=== PATIENT | female | born 1960 | race Caucasian/White ===

== ENCOUNTER → 2017-04-07 18:00 | Outpatient (CLI) | payer OTHER, SELFPAY ==
[2017-04-07 21:33] LABS: M R Staph aureus DNA By PCR Negative (Negative); Probe Check PASS; Staph aureus DNA By PCR POSITIVE (Negative)
== END ==
PROVIDERS: Visit Provider Podiatrist
DX: L97.429 Non-pressure chronic ulcer of left heel and midfoot with unspecified severity (principal); L03.90 Cellulitis, unspecified
CPT/HCPCS: 87070; 87077; 87186; 87205; 87640

== ENCOUNTER → 2017-05-09 18:24 | Outpatient (CLI) | payer OTHER, SELFPAY ==
--- NOTE | 2017-05-09 18:35 | RAD_ITS ---
STUDY: X-RAY - LEFT WRIST REASON FOR EXAM: Female, 56 years old. Left wrist pain and swelling. TECHNIQUE: 3 view(s) of the wrist were obtained. COMPARISON: None. FINDINGS: Normal visualized distal radius and ulna. Normal radiocarpal articulation. Normal distal radioulnar articulation. Normal carpal bones. Normal carpal articulations. Normal carpometacarpal articulation of the thumb. Normal second through fifth carpometacarpal articulations. Normal visualized metacarpal bones. There is mild soft tissue swelling at the wrist. There is no demonstrated osseous destructive lesion. There is no demonstrated acute fracture. RAD/Wrist min 3 Views IMPRESSION: Mild soft tissue swelling. No acute osseous abnormality of the left wrist. Electronically Signed: Evelio Butterfield MD at 17:28 EST , Service support ,
--- NOTE | 2017-05-09 18:38 | RAD_ITS ---
STUDY: X-RAY - LEFT HAND REASON FOR EXAM: Female, 56 years old. Left hand pain and swelling. TECHNIQUE: 3 view(s) of the hand. COMPARISON: None. FINDINGS: Normal radiocarpal articulation. Normal distal radioulnar joint. Normal visualized carpal bones. Normal carpal articulations Normal carpometacarpal articulation of the thumb. Normal second through fifth carpometacarpal joints. Normal metacarpi. Normal metacarpophalangeal joint of the thumb. Normal interphalangeal joint of the thumb. Normal proximal and distal phalanges of the thumb. Normal metacarpophalangeal joints of the second through fifth fingers. Normal proximal and distal interphalangeal joints of the second through fifth fingers. Normal phalanges of the second through fifth fingers. There is dorsal soft tissue swelling of the hand and wrist. No demonstrated acute fracture or osseous destructive lesion. RAD/Hand Min 3 Views IMPRESSION: Dorsal soft tissue swelling of the hand and wrist. No acute osseous abnormality. Electronically Signed: Evelio Butterfield MD at 17:40 EST , Service support ,
[2017-05-09 19:04] LABS: Absolute Neutrophil Count 6.2 X10^3/uL (2.0-7.7); Basophil# 0.03 X10^3/uL; Basophil% 0.3 % (0-1); Eosinophil# 0.44 X10^3/uL; Eosinophils% 4.6 % (0-5); Hematocrit 36.7 % (37-47); Hemoglobin 12.1 g/dl (12.0-15.0); Lymphocyte % 23.9 % (19-41); Mean Corpuscular Hgb 28.7 pg (27.0-32.0); Mean Platelet Vol. 8.8 fl (6.2-12.0); Monocyte# 0.63 X10^3/uL; Monocyte% 6.6 % (0-10); Neutrophil % 64.5 % (47-70); Platelet Count 268 K/mm3 (150-450); RBC Distribution Width CV 13.2 % (11.6-14.6); Red Blood Count 4.22 M/mm3 (4.2-5.4); White Blood Count 9.6 K/mm3 (4.4-11.0)
[2017-05-09 19:06] LABS: POSITIVE COUNT NO; POSITIVE DIFFERENTIAL NO; POSITIVE MORPHOLOGY NO
[2017-05-09 19:09] LABS: Erythrocyte Sedimentation Rate 28 mm/hr (0-30)
[2017-05-09 19:33] LABS: AST(SGOT) 12 U/L (15-37); Alanine Aminotransfer ALT/SGPT 20 U/L (13-56); Albumin, Serum 3.9 g/dL (3.2-5.0); Alkaline Phosphatase 112 U/L (45-117); Anion Gap 7 (5-15); BUN 17 mg/dL (7-18); BUN/Creat Ratio 25.6 RATIO (10-20); CRP, High Sensitivity Cardiac 4.25 mg/L; Calcium,Total 9.8 mg/dL (8.5-10.1); Chloride 105 mmol/L (98-107); Creatinine, Serum 0.66 mg/dL (0.55-1.02); EST Glomerular Filtration Rate 97 mL/min (>60); Est Glom Filt Rate - Afr Amer 117 mL/min (>60); Glucose 65 mg/dL (74-106); Potassium 4.7 mmol/L (3.5-5.1); Protein, Total 7.9 g/dL (6.4-8.2); Sodium Level 141 mmol/L (136-145); Uric Acid 3.3 mg/dL (2.6-6.0)
== END ==
PROVIDERS: Family Provider Family Medicine Geriatric Medicine; PCP Family Medicine Geriatric Medicine; Visit Provider Family Medicine Geriatric Medicine
DX: M79.642 Pain in left hand (principal); M25.532 Pain in left wrist; I10 Essential (primary) hypertension; M10.9 Gout, unspecified; R06.89 Other abnormalities of breathing
CPT/HCPCS: 36415; 73110; 73130; 80053; 84550; 85025; 85379; 85652; 86141

== ENCOUNTER → 2017-06-28 15:15 | Outpatient (CLI) | payer OTHER, SELFPAY ==
[2017-06-28 18:00] LABS: Absolute Lymphocyte Count 1.78 X10^3/ul (0.83-4.51); Absolute Neutrophil Count 5.1 X10^3/uL (2.0-7.7); Basophil# 0.03 X10^3/uL; Basophil% 0.4 % (0-1); Eosinophil# 0.28 X10^3/uL; Eosinophils% 3.7 % (0-5); Hematocrit 38.8 % (37-47); Hemoglobin 12.9 g/dl (12.0-15.0); Lymphocyte # 1.78 X10^3/ul (4.0); Lymphocyte % 23.3 % (19-41); Mean Corp Hgb Conc 33.2 g/gl (32-36); Mean Corpuscular Hgb 28.6 pg (27.0-32.0); Mean Platelet Vol. 9.3 fl (6.2-12.0); Monocyte# 0.43 X10^3/uL; Monocyte% 5.6 % (0-10); Neutrophil # 5.11 X10^3/uL (2.7-7.7); Neutrophil % 66.9 % (47-70); POSITIVE COUNT NO; POSITIVE DIFFERENTIAL NO; POSITIVE MORPHOLOGY NO; Platelet Count 259 K/mm3 (150-450); RBC Distribution Width CV 13.3 % (11.6-14.6); RBC Distribution Width SD 41.9 fl (35.1-43.9); Red Blood Count 4.51 M/mm3 (4.2-5.4); White Blood Count 7.6 K/mm3 (4.4-11.0)
[2017-06-28 18:25] LABS: ALB/GLOB Ratio 1.1 RATIO (0.9-2.4); AST(SGOT) 10 U/L (15-37); Alanine Aminotransfer ALT/SGPT 20 U/L (13-56); Albumin, Serum 3.8 g/dL (3.2-5.0); Alkaline Phosphatase 107 U/L (45-117); Anion Gap 7 (5-15); BUN 16 mg/dL (7-18); BUN/Creat Ratio 26.5 RATIO (10-20); Calcium,Total 9.1 mg/dL (8.5-10.1); Chloride 104 mmol/L (98-107); EST Glomerular Filtration Rate 108 mL/min (>60); Est Glom Filt Rate - Afr Amer 131 mL/min (>60); Globulin 3.6 g/dL (2.2-4.2); Glucose 62 mg/dL (74-106); Potassium 3.7 mmol/L (3.5-5.1); Protein, Total 7.4 g/dL (6.4-8.2); Sodium Level 140 mmol/L (136-145); Thyroid Stim Hormone (TSH) 1.38 uIU/mL (0.358-3.74)
[2017-06-29 09:51] LABS: Vitamin D,25 Hydroxy 12.7 ng/mL (29.95-100.01)
== END ==
PROVIDERS: Family Provider Family Medicine Geriatric Medicine; PCP Family Medicine Geriatric Medicine; Visit Provider Family Medicine Geriatric Medicine
DX: I10 Essential (primary) hypertension (principal); E11.9 Type 2 diabetes mellitus without complications; E55.9 Vitamin D deficiency, unspecified
CPT/HCPCS: 36415; 80053; 82306; 84443; 85025

== ENCOUNTER → 2017-10-13 14:01 | Outpatient (CLI) | payer OTHER, SELFPAY ==
[2017-10-13 14:57] LABS: Absolute Lymphocyte Count 0.61 X10^3/ul (0.83-4.51); Absolute Neutrophil Count 5.7 X10^3/uL (2.0-7.7); Eosinophils% 2.9 % (0-5); Hematocrit 36.9 % (37-47); Hemoglobin 12.2 g/dl (12.0-15.0); Lymphocyte # 0.61 X10^3/ul (4.0); Lymphocyte % 8.8 % (19-41); Mean Corp Hgb Conc 33.1 g/gl (32-36); Mean Corpuscular Hgb 27.4 pg (27.0-32.0); Mean Corpuscular Volume 82.9 fL (81-99); Mean Platelet Vol. 10.4 fl (6.2-12.0); Monocyte# 0.47 X10^3/uL; Monocyte% 6.8 % (0-10); Neutrophil # 5.66 X10^3/uL (2.7-7.7); Neutrophil % 81.4 % (47-70); Platelet Count 168 K/mm3 (150-450); RBC Distribution Width SD 39.2 fl (35.1-43.9); Red Blood Count 4.45 M/mm3 (4.2-5.4)
[2017-10-13 14:59] LABS: Erythrocyte Sedimentation Rate 26 mm/hr (0-30); POSITIVE COUNT NO; POSITIVE DIFFERENTIAL NO; POSITIVE MORPHOLOGY NO
== END ==
LOC: LAB 14:09
PROVIDERS: Family Provider Family Medicine Geriatric Medicine; PCP Family Medicine Geriatric Medicine; Visit Provider Podiatrist
DX: L98.499 Non-pressure chronic ulcer of skin of other sites with unspecified severity (principal); L03.90 Cellulitis, unspecified
CPT/HCPCS: 36415; 85025; 85652; 86140

== ENCOUNTER → 2017-10-13 18:41 | Outpatient (CLI) | payer OTHER, SELFPAY ==
[2017-10-13 20:29] LABS: M R Staph aureus DNA By PCR Negative (Negative); Probe Check PASS; Specimen Processing Control PASS; Staph aureus DNA By PCR POSITIVE (Negative)
== END ==
PROVIDERS: Family Provider Family Medicine Geriatric Medicine; PCP Family Medicine Geriatric Medicine; Visit Provider Podiatrist
DX: L03.90 Cellulitis, unspecified (principal)
CPT/HCPCS: 87070; 87075; 87077; 87186; 87205; 87640

== ENCOUNTER → 2018-04-05 10:26 | Outpatient (CLI) | payer OTHER, SELFPAY ==
[2018-04-05 13:47] LABS: Absolute Lymphocyte Count 1.41 X10^3/ul (0.83-4.51); Absolute Neutrophil Count 3.5 X10^3/uL (2.0-7.7); Basophil# 0.02 X10^3/uL; Basophil% 0.4 % (0-1); Eosinophil# 0.29 X10^3/uL; Eosinophils% 5.1 % (0-5); Hematocrit 35.1 % (37-47); Hemoglobin 11.7 g/dl (12.0-15.0); Lymphocyte # 1.41 X10^3/ul (4.0); Lymphocyte % 24.8 % (19-41); Mean Corp Hgb Conc 33.3 g/gl (32-36); Mean Corpuscular Hgb 28.4 pg (27.0-32.0); Mean Corpuscular Volume 85.2 fL (81-99); Mean Platelet Vol. 9.7 fl (6.2-12.0); Monocyte# 0.43 X10^3/uL; Monocyte% 7.6 % (0-10); Neutrophil # 3.53 X10^3/uL (2.7-7.7); Neutrophil % 61.9 % (47-70); POSITIVE COUNT NO; POSITIVE DIFFERENTIAL NO; POSITIVE MORPHOLOGY NO; Platelet Count 270 K/mm3 (150-450); RBC Distribution Width CV 12.8 % (11.6-14.6); RBC Distribution Width SD 38.8 fl (35.1-43.9); Red Blood Count 4.12 M/mm3 (4.2-5.4); White Blood Count 5.7 K/mm3 (4.4-11.0)
[2018-04-05 15:11] LABS: AST(SGOT) 9 U/L (15-37); Alanine Aminotransfer ALT/SGPT 15 U/L (13-56); Albumin, Serum 3.6 g/dL (3.2-5.0); Alkaline Phosphatase 134 U/L (45-117); Anion Gap 8 (5-15); BUN 9 mg/dL (7-18); Calcium,Total 8.6 mg/dL (8.5-10.1); Chloride 103 mmol/L (98-107); Creatinine, Serum 0.69 mg/dL (0.55-1.02); EST Glomerular Filtration Rate 92 mL/min (>60); Est Glom Filt Rate - Afr Amer 111 mL/min (>60); Globulin 3.7 g/dL (2.2-4.2); Glucose 350 mg/dL (74-106); Potassium 3.7 mmol/L (3.5-5.1); Protein, Total 7.3 g/dL (6.4-8.2); Sodium Level 138 mmol/L (136-145); Thyroid Stim Hormone (TSH) 1.66 uIU/mL (0.358-3.74); Uric Acid 2.3 mg/dL (2.6-6.0)
== END ==
LOC: POLAB3 10:27
PROVIDERS: Family Provider Family Medicine Geriatric Medicine; PCP Family Medicine Geriatric Medicine; Visit Provider Family Medicine Geriatric Medicine
DX: I10 Essential (primary) hypertension (principal); E11.9 Type 2 diabetes mellitus without complications; E55.9 Vitamin D deficiency, unspecified; M10.9 Gout, unspecified
CPT/HCPCS: 36415; 80053; 82306; 84443; 84550; 85025

== ENCOUNTER → 2018-07-04 | Outpatient (CLI) | payer OTHER, SELFPAY ==
[2018-07-04 12:35] LABS: Absolute Neutrophil Count 3.7 X10^3/uL (2.0-7.7); Basophil# 0.01 X10^3/uL; Basophil% 0.2 % (0-1); Eosinophil# 0.36 X10^3/uL; Eosinophils% 6.1 % (0-5); Hematocrit 38.6 % (37-47); Lymphocyte % 25.2 % (19-41); Mean Corp Hgb Conc 33.7 g/gl (32-36); Mean Corpuscular Hgb 27.6 pg (27.0-32.0); Mean Platelet Vol. 9.8 fl (6.2-12.0); Monocyte% 6.7 % (0-10); Neutrophil # 3.67 X10^3/uL (2.7-7.7); Neutrophil % 61.6 % (47-70); Platelet Count 212 K/mm3 (150-450); RBC Distribution Width CV 13.2 % (11.6-14.6); RBC Distribution Width SD 38.8 fl (35.1-43.9); Red Blood Count 4.71 M/mm3 (4.2-5.4)
[2018-07-04 12:38] LABS: POSITIVE COUNT NO; POSITIVE DIFFERENTIAL NO; POSITIVE MORPHOLOGY NO
[2018-07-04 13:19] LABS: AST(SGOT) 11 U/L (15-37); Alanine Aminotransfer ALT/SGPT 16 U/L (13-56); Albumin, Serum 3.7 g/dL (3.2-5.0); Alkaline Phosphatase 150 U/L (45-117); Anion Gap 8 (5-15); BUN 9 mg/dL (7-18); BUN/Creat Ratio 13.6 RATIO (10-20); Calcium,Total 9.3 mg/dL (8.5-10.1); Chloride 103 mmol/L (98-107); Creatinine, Serum 0.66 mg/dL (0.55-1.02); EST Glomerular Filtration Rate 97 mL/min (>60); Est Glom Filt Rate - Afr Amer 118 mL/min (>60); Globulin 3.7 g/dL (2.2-4.2); Glucose 269 mg/dL (74-106); Potassium 3.9 mmol/L (3.5-5.1); Protein, Total 7.4 g/dL (6.4-8.2); Sodium Level 139 mmol/L (136-145); Thyroid Stim Hormone (TSH) 2.27 uIU/mL (0.358-3.74)
[2018-07-04 17:54] LABS: Vitamin D,25 Hydroxy 11.2 ng/mL (29.95-100.01)
== END | disposition home or self-care (01) ==
LOC: POLAB3 11:50
PROVIDERS: Family Provider Family Medicine Geriatric Medicine; PCP Family Medicine Geriatric Medicine; Visit Provider Family Medicine Geriatric Medicine
DX: I10 Essential (primary) hypertension (principal); E11.65 Type 2 diabetes mellitus with hyperglycemia
CPT/HCPCS: 36415; 80053; 82306; 84443; 85025

== ENCOUNTER 2018-09-18 08:45 | Inpatient (IN) | payer OTHER, SELFPAY ==
[2018-09-18] VITALS (10 sets, daily range): BP systolic 81–154; BP diastolic 55–91; PULSE 74–94; RESP 14–18; TEMP 36.1–37.5; O2SAT 96–98; BMI 24.0; BMI 21.8
--- NOTE | 2018-09-18 08:57 | RAD_ITS ---
STUDY: X-RAY - RIGHT FOOT CLINICAL: Female, 58 years old. Soft tissue changes overlying the great toe. TECHNIQUE: 3 view(s) of the foot. COMPARISON: None. FINDINGS: There is an enthesophyte involving the posterior superior calcaneus at the site of insertion of the Achilles tendon. Plantar spur. Normal visualized subtalar, talonavicular, calcaneocuboid, tarsal and tarsometatarsal articulations. Normal metatarsi. Normal metatarsophalangeal joint of the great toe. Normal tibial and fibular sesamoid bones. Flexion deformity at the distal interphalangeal joint. Osteomyelitis should be ruled out. Normal phalanges of the great toe. Normal second through fifth metatarsophalangeal joints. Normal interphalangeal joints and phalanges of the lesser toes. Soft tissue swelling with air in the soft tissues overlying the first metatarsal as well as the great toe. This is worse along the plantar surface. RAD/Foot min 3 Views IMPRESSION: Soft tissue swelling with gas in the soft tissues overlying the first metatarsal and first toe. Possible osteomyelitis involving the distal phalanx of the great toe. Electronically Signed: Mike Simmons, at 10:26 EDT , Service support ,
--- NOTE | 2018-09-18 08:59 | ED.VIS.GEN ---
History of Present Illness Chief Complaint: Wound Informant: Patient Onset: - Context: Gradual Onset - Chronic, worse in the last few days Timing: Continuous Current Severity: Severe Maximum Severity: Severe Narrative: Patient presents with chronic right foot wound, it has becoming worse, she has noticed foul-smelling discharge from her right toe, it is now black. Apparently she had seen a engineering mechanic but could not afford it further appointments. She denies any fever chills cough or congestion, she is a diabetic, she may have neuropathy upon talking to her and she has decreased sensation, she has minimal pain in that foot. She denies any chest pain shortness of breath. Past Medical History - Allergies and Home Meds Allergies/Adverse Reactions: Allergies No Known Allergies Allergy (Verified 09/18/18 08:46) Primary Care Physician: Marquis Guerra Chi, MD [Primary Care Provider] - Past Medical History: - - Diabetes, everyday smoker, right foot wound which is chronic and worsening Surgical History: no surgical history Lives: With Family Smoking Status: Current every day smoker Review of Systems General: Denies: Chills, Fever, Sweats Cardiovascular: Denies: Chest pain, Palpitations Respiratory: Denies: Dyspnea, Cough, Dyspnea on exertion Gastrointestinal: Denies: Abdominal pain, Nausea, Vomiting, Diarrhea, Melena, Hematochezia Genitourinary: Denies: Dysuria, Hematuria, Frequency Musculoskeletal: Reports: - - As in HPI Skin: Reports: Wounds. Denies: Rash Neurological: Reports: Numbness. Denies: Headache, Weakness Hematologic: Denies: Easy bruising Physical Exam Vital Signs/Narrative: Vital Signs Temp Pulse Resp BP Pulse Ox 09/18/18 08:46 97.0 F L 94 16 140/91 H 97 General: Negative for: Acute Distress Head: Normocephalic ENT: Moist mucous membranes, No rhinorrhea Neck: Supple Cardiovascular: Regular rate, Regular rhythm, No murmurs Respiratory: No distress, - - Coarse breath sounds bilaterally Abdomen: Soft Back: Nontender Extremities: - - There is a necrotic right great toe, it is black without any signs of blood flow. Patient has no sensation. There is a proximal foot wound that extends up till the calcaneal region. No lymphangitic streaking, no signs of proximal infection. Neurological: Normal Strength, - - Decreased sensation Psychological: Normal affect Diagnostic/Tx/Re-eval - Medical Decision Making Patient is found to have osteomyelitis. I discussed with podiatry and they wanted to make sure that there is no vascular compromise CT angiogram was done with runoffs, this did not show any vascular compromise. Patient will be admitted. Antibiotics started. Admit in stable condition ED Disposition - Plan for ED Patient: Diagnosis: Osteomyelitis Referrals: Marquis Guerra Chi, MD [Primary Care Provider] -
[2018-09-18 09:54] LABS: Absolute Lymphocyte Count 0.85 X10^3/ul (0.83-4.51); Absolute Neutrophil Count 11.8 X10^3/uL (2.0-7.7); Basophil# 0.01 X10^3/uL; Basophil% 0.1 % (0-1); Eosinophil# 0.06 X10^3/uL; Eosinophils% 0.5 % (0-5); Hematocrit 33.9 % (37-47); Hemoglobin 11.2 g/dl (12.0-15.0); Lymphocyte # 0.85 X10^3/ul (4.0); Lymphocyte % 6.4 % (19-41); Mean Corpuscular Volume 81.7 fL (81-99); Mean Platelet Vol. 9.5 fl (6.2-12.0); Monocyte# 0.51 X10^3/uL; Monocyte% 3.8 % (0-10); Neutrophil # 11.83 X10^3/uL (2.7-7.7); Neutrophil % 88.9 % (47-70); Platelet Count 362 K/mm3 (150-450); RBC Distribution Width CV 12.8 % (11.6-14.6); RBC Distribution Width SD 37.3 fl (35.1-43.9); Red Blood Count 4.15 M/mm3 (4.2-5.4); White Blood Count 13.3 K/mm3 (4.4-11.0)
[2018-09-18 09:55] LABS: POSITIVE COUNT NO; POSITIVE DIFFERENTIAL NO; POSITIVE MORPHOLOGY NO
[2018-09-18 10:11] LABS: ALB/GLOB Ratio 0.5 RATIO (0.9-2.4); AST(SGOT) 7 U/L (15-37); Alanine Aminotransfer ALT/SGPT 14 U/L (13-56); Albumin, Serum 2.5 g/dL (3.2-5.0); Alkaline Phosphatase 126 U/L (45-117); Anion Gap 8 (5-15); BUN 8 mg/dL (7-18); BUN/Creat Ratio 11.6 RATIO (10-20); Calcium,Total 8.9 mg/dL (8.5-10.1); Chloride 99 mmol/L (98-107); Creatinine, Serum 0.69 mg/dL (0.55-1.02); EST Glomerular Filtration Rate 93 mL/min (>60); Est Glom Filt Rate - Afr Amer 112 mL/min (>60); Estimated Creatinine Clearance 74.87 ml/min; Globulin 5.3 g/dL (2.2-4.2); Glucose 344 mg/dL (74-106); Potassium 3.5 mmol/L (3.5-5.1); Protein, Total 7.8 g/dL (6.4-8.2); Sodium Level 137 mmol/L (136-145)
[2018-09-18 10:30] LABS: Erythrocyte Sedimentation Rate 51 mm/hr (0-30)
--- NOTE | 2018-09-18 10:49 | CT_ITS ---
STUDY: CTA OF THE ABDOMINAL AORTA AND BILATERAL LOWER EXTREMITIES REASON FOR EXAM: Female, 58 years old. Soft tissue wound involving the right foot. RADIATION DOSAGE (If Supplied By Facility): CTDIvol = ( 6.56 ) mGy, DLP = ( 1096.26 ) mGycm TECHNIQUE: Axial CT angiography multi-detector data acquisition was obtained from the dome of the liver to the ankle following intravenous administration of 100 IV Isovue 370. Axial images and MIP images were reconstructed from the axial data set. Post-processing of the angiographic images was performed, with multiplanar reformation and 3D reconstruction. Individualized dose optimization techniques were used for this CT. TECHNICAL QUALITY: Good COMPARISON: None. Descriptors of Narrowing: None (0%) Mild (< 50%) Moderate (50-70%) Severe (70-90%) Subtotal/Total Occlusion (90-100%) Non-Evaluable (technically non-diagnostic FINDINGS: Diffuse fatty infiltration of the liver. Left adrenal hyperplasia. Small retroperitoneal lymph nodes. Retroaortic left renal vein. Abdominal aorta: Atherosclerotic plaque formation. No evidence of aneurysm. Celiac and superior mesenteric arteries: Nonstenotic atherosclerotic plaque at the origin of the superior mesenteric artery. Inferior mesenteric artery: No demonstrated narrowing. Right renal artery(arteries): No demonstrated narrowing. Left renal artery(arteries): No demonstrated narrowing. Right common iliac artery: Calcified plaques. Right external iliac artery: No demonstrated narrowing. Right internal iliac artery: No demonstrated narrowing. Left common iliac artery: Calcified plaques. Left external iliac artery: No demonstrated narrowing. Left internal iliac artery: No demonstrated narrowing. RIGHT LOWER EXTREMITY Right common femoral artery: No demonstrated narrowing. Right profundus femoris: No demonstrated narrowing. Right superficial femoral: Diffuse atherosclerotic plaque formation. Moderate stenosis along its distal portion. Right popliteal artery: No demonstrated narrowing. Right tibioperoneal trunk: No demonstrated narrowing. Right anterior tibial artery: No demonstrated narrowing. Right posterior tibial artery: No demonstrated narrowing. Right peroneal artery: No demonstrated narrowing. LEFT LOWER EXTREMITY Left common femoral artery: No demonstrated narrowing. Left profundus femoris: No demonstrated narrowing. Left superficial femoral: Diffuse atherosclerotic plaque formation worse in its distal portion. Moderate stenosis. Left popliteal artery: No demonstrated narrowing. Left tibioperoneal trunk: No demonstrated narrowing. Left anterior tibial artery: No demonstrated narrowing. Left posterior tibial artery: No demonstrated narrowing. Left peroneal artery: No demonstrated narrowing. CT/CTA Abd w/Runoff W/WO Contrast IMPRESSION: Multiple findings as discussed. Electronically Signed: Mike Simmons, at 12:30 EDT , Service support ,
--- NOTE | 2018-09-18 13:25 | NURSING ---
DR FRANCK GARZA
--- NOTE | 2018-09-18 13:30 | CASEMGMT ---
RN CM Assessment Introduced role of RN CM to patient, patient Dtr Rosetta and family at bedside.? Patient is alert, oriented and able?to participate in RN CM Assessment. ?Care providers, pharmacy, and demographics verified. Presentation: Chronic rt foot wound, Becoming worse Admit Dx: Rt Toe Osteo with Necrosis Re-Admit: No Barriers/Issues: States Rx Benefit/Insurance does not cover much and plans to apply for [facility]. Works at [employer] PCP: Marquis Guerra Chi Specialists: Brie Anderson Preferred Pharmacy: [facility] [place], [place] Insurance: [employer] Rx Benefit:?Yes LNOK: Mother Asha Jiménez, Dtr Rosettarosita Corrigan LW/HPOA: No, Would like information Living Arrangements:?Lives with her Dtr Rosetta and her and 4 kids in a 2 story home. Patient Bedroom on [address], 12-14 steps to get up. 3 steps to enter the home w/WC ramp. ADL?s: Independent with ambulation and ADLs Transportation: Patient drives, Dtr Rosetta will transport on DC DME: CAP- does not use (Patient states that it was packed away and has since unpacked but not used) HHC: None SNF: None Goal: Home, does not think will have any needs. Discussed possibility of HHC for IV Abx and Wound Care- patient states that her and Dtr are able to be taught and open to HHC with no preference on HHC Agency as long as In Network, Same for Infusion Pharmacy. CM may need to Follow re: medication coverage if patient could use Coupon Cards. Denies any other questions/concerns or issues. DC PLAN: Home with possible IV Abx and Wound Care. Aaron Lees RNCM
--- NOTE | 2018-09-18 13:41 | NURSING ---
314 RT TOE OSTEO WITH NECROSIS FRANCK
--- NOTE | 2018-09-18 15:10 | HP.PCM_ITS ---
Problem List (1) Necrosis of toe Status: Acute (2) DM type 2 (diabetes mellitus, type 2) Status: Acute (3) Hypertension Status: Chronic (4) Hyperlipidemia Status: Acute (5) Osteomyelitis Status: Acute History of Present Illness Date of Admission: 09/18/18 Chief Complaint: Necrotic toe The patient is a 58 year old F who presents with several weeks of right toe necrosis. Her great toe on the right has been black and has a small foul- smelling odor to it. This been going on for several weeks and she did not want to come to the doctor. However she has been having some intermittent pain across her foot and so today when she woke up she told her daughter that she felt that she needed to come in to the hospital. She denies any fevers or chills. No shortness of breath or chest pain. In the ER she was afebrile, and not tachycardic. The ER discussed the case with podiatry who recommended getting a CTA with runoff of her lower extremity which demonstrated blood flow. She was given a dose of Zosyn and vancomycin in the ER prior to admission. Past Medical History Past Medical History (Chronic Problems): Chronic Problems Hypertension (Chronic) Allergies No Known Allergies Allergy (Verified 09/18/18 08:46) Home Medications: Ambulatory Orders Medication Instructions Recorded Aspirin [Aspirin, Baby] 81 mg PO DAILY@0800 12/27/15 Smz/Tmp Ds [Bactrim Ds] 1 tablet PO BID #20 tablet 12/28/15 Atorvastatin Calcium 40 mg PO DAILY 09/18/18 Cholecalciferol (VIT D3) [Vitamin 1,000 unit PO DAILY 09/18/18 D] Clopidogrel Bisulfate [Clopidogrel] 75 mg PO DAILY 09/18/18 Glimepiride 4 mg PO DAILY 09/18/18 Lisinopril 2.5 mg PO DAILY 09/18/18 Pioglitazone HCl 09/18/18 metFORMIN HCl [Glucophage] 1,000 mg PO BIDCM 09/18/18 Surgical History: no surgical history Lives: With Family Smoking Status: Current every day smoker Alcohol: None Drugs: None - *Family History Maternal History Items: Cancer Paternal History Items: Heart Disease Review of Systems Constitutional: Denies: Chills, Fever, Weight Change HEENT: Denies: Head Aches, Sinus Congestion, Sinus Drainage Cardiovascular: Denies: Chest Pain, Palpitations Respiratory: Denies: Cough, Shortness of breath at rest, Sputum production Gastrointestinal: Denies: Abdominal Pain, Nausea, Vomiting Genitourinary: Denies: Dysuria Musculoskeletal: Reports: Foot Pain, - - Right big toe necrosis. Denies: Joint Pain, Joint Tenderness Skin: Denies: Rash, Wounds Neurological: Denies: Numbness, Tingling, Focal weakness Psychiatric: Denies: Anxiety, Depression Hematologic/ Lymphatic: Denies: Easy Bruising, Easy Bleeding VTE Information - Inpt Only VTE Present on Admission: No Patient Problems: Active and Suspected Problems Osteomyelitis (Acute) Necrosis of toe (Acute) DM type 2 (diabetes mellitus, type 2) (Acute) Hyperlipidemia (Acute) - Physical Exam General: Alert, Oriented x3, Cooperative, No apparent distress HEENT: Atraumatic, PERRLA, EOMI, Normocephalic Oral: Moist Mucosa Neck: Supple, No JVD Lungs: Clear to auscultation, Normal air movement, No rhonchi, No wheeze, No ral es Cardiovascular: Regular rate, Regular Rhythm, Normal S1, Normal S2, No murmurs Abdomen: Soft, Non Tender, Non-Distended, No Hepato-splenomegaly Extremities: No edema, Capillary Refill Less than 3 Seconds, - - Right great toe necrosis with a necrotic ulcer on the ball of her foot Skin: No rashes, No breakdown Neurological: Neuro grossly intact, Sensory exam intact to light touch and pain Psych/Mental Status: Normal Affect, Appropriate Vital Signs Temp Pulse Resp BP Pulse Ox 99.5 F H 81 18 81/55 L 96 09/18/18 12:23 09/18/18 12:23 09/18/18 13:41 09/18/18 13:41 09/18/18 13:41 Oxygen Delivery Method Room Air Weight: 140 lb Body Mass Index (BMI) 24.0 Finger Stick Blood Glucose 401 Laboratory Tests Past 24 Hrs 09/18/18 09/18/18 09:35 09:35 WBC 13.3 H RBC 4.15 L Hgb 11.2 L Hct 33.9 L MCV 81.7 MCH 27.0 MCHC 33.0 RDW 12.8 RDW Differential 37.3 Plt Count 362 MPV 9.5 Immature Gran % (Auto) 0.300 Neut % (Auto) 88.9 H Lymph % (Auto) 6.4 L [place] % (Auto) 3.8 Eos % (Auto) 0.5 Baso % (Auto) 0.1 Absolute Neuts (auto) 11.8 H Absolute Lymphs (auto) 0.85 Total Counted Not Reportable ESR 51 H Sodium 137 Potassium 3.5 Chloride 99 Carbon Dioxide 30.0 Anion Gap 8 BUN 8 Creatinine 0.69 Estim Creat Clear Calc 74.87 Est GFR (MDRD) Af Amer 112 Est GFR (MDRD) Non-Af 93 BUN/Creatinine Ratio 11.6 Glucose 344 H Calcium 8.9 Total Bilirubin 0.60 AST 7 L ALT 14 Alkaline Phosphatase 126 H C-React Prot Ext Range 158.00 H Total Protein 7.8 Albumin 2.5 L Globulin 5.3 H Albumin/Globulin Ratio 0.5 L Assessment/Plan All Active Problems Osteomyelitis (Acute) Necrosis of toe (Acute) DM type 2 (diabetes mellitus, type 2) (Acute) Hyperlipidemia (Acute) 1. Right toe necrosis with likely osteomyelitis -We will continue with Zosyn and vancomycin -Consult podiatry for amputation -Call to the wound care nurse for assistance in management after surgery -We will maintain n.p.o. today if OR is a possibility, otherwise can restart diet and make n.p.o. at midnight -IV fluids at 100 -Denies any significant pain and therefore will hold off on pain meds 2. DM 2 -We will hold all of her oral hypoglycemics and start her on 10 units of Lantus as well as a sliding scale insulin -This is likely the cause of her right toe osteomyelitis and necrosis 3. Tobacco abuse -Discussed cessation -Provide a nicotine patch if necessary 4. HTN/HLD/history of CVA -Stable -Continue with home medications and will monitor -Continue with her Plavix after surgery DVT: SCDs Code Visit Inpatient E&M: 06650 Init Hosp L3
--- NOTE | 2018-09-18 15:40 | NURSING ---
wound photo: right foot
--- NOTE | 2018-09-18 15:40 | NURSING ---
wound photo: right great toe
--- NOTE | 2018-09-18 15:41 | PCM.RX.CS ---
Consult Pharmacy has been consulted to manage selected antiobiotic: Vancomycin Type of Consult: New start Suspected Infection: Osteomyelitis Prior Doses of Antibiotics Received/Current Regimen: Medications Vancomycin HCl (Vancomycin) 1,000 mg in 200 mls @ 200 mls/hr IV Q12H IHSAN to start 09/18/18 2100 Discontinued Medications Vancomycin HCl 1,250 mg/ (Sodium Chloride) 275 mls @ 167 mls/hr IV X1 ONE Stop: 09/18/18 10:36 Last Admin: 09/18/18 09:47 Dose: 167 mls/hr Documented by: Labs: Sodium 137 mmol/L (136-145) 09/18/18 09:35 Potassium 3.5 mmol/L (3.5-5.1) 09/18/18 09:35 Chloride 99 mmol/L (98-107) 09/18/18 09:35 Carbon Dioxide 30.0 mmol/L (21.0-32.0) 09/18/18 09:35 8 (5-15) 09/18/18 09:35 BUN 8 mg/dL (7-18) 09/18/18 09:35 0.69 mg/dL (0.55-1.02) 09/18/18 09:35 Est GFR (MDRD) Af Amer 112 mL/min (>60) 09/18/18 09:35 Est GFR (MDRD) Non-Af 93 mL/min (>60) 09/18/18 09:35 11.6 RATIO (10-20) 09/18/18 09:35 Glucose 344 mg/dL (74-106) H 09/18/18 09:35 Weight used for dosin.5 kg Estimated Creatinine Clearance: 74.87 Goal Trough: 15-20 mcg/mL Pharmacy Plan for Drug Dosing: Pharmacy Service will continue to monitor and adjust dosing as required. Follow-Up Labs: Trough Vancomycin - Draw 30 minutes before dose due Labs to be done on [date and time ordered]: 09/19/182029 before 4th dose
--- NOTE | 2018-09-18 15:43 | EKG12_ITS ---
Test Reason : PRE-OP Blood Pressure : / mmHG Vent. Rate : 074 BPM Atrial Rate : 074 BPM P-R Int : 134 ms QRS Dur : 088 ms QT Int : 404 ms P-R-T Axes : 053 -03 034 degrees QTc Int : 448 ms Normal sinus rhythm Normal ECG Confirmed by VERNON LUX, POORNIMA ([id number]), senior editor RADHA TRUONG ([id number]) on 09/21/2018 10:34:24 AM Referred By: Chuy Narvaez Confirmed By:POORNIMA JUNIOR MD
[2018-09-18 16:31] LABS: Bedside Glucose 317 mg/dL (70-110)
--- NOTE | 2018-09-18 17:10 | PCM.CONS.GEN ---
Problem List (1) Osteomyelitis of right foot Status: Acute (2) Gas gangrene Status: Acute (3) Type 2 diabetes mellitus with diabetic polyneuropathy Status: Acute (4) Cellulitis of right foot Status: Acute (5) Abscess of right foot Status: Acute Reason for Consult Date of Consultation: 09/18/18 Reason for Consultation: right foot infection History of Present Illness: The patient is a 58 year old F was consulted to podiatry after presenting to ER today with what she says was about two weeks of right toe necrosis. Her great toe on the right has been black and has a small foul-smelling odor to it. This been going on for several weeks and she did not want to come to the doctor. She relates she had been seeing Dr. Anderson who was treating an ulcer to her great toe, but she says she could no longer afford to go to the office so she just treated the ulcer on her own. She lives with one of her daughters who tries to help her with her dressing changes and keeping an eye on her. Daughter states that patient is non compliant and will not stay off her foot. She is unsure exactly how long the other ulcer to medial plantar foot area has been present. She denies any fevers or chills. No shortness of breath or chest pain. Patient had CTA with runoff of her lower extremity which demonstrated adequate blood flow. She is currently on Zosyn and vancomycin. Past Medical History Past Medical History (Chronic Problems): Chronic Problems Hypertension (Chronic) Allergies No Known Allergies Allergy (Verified 09/18/18 08:46) Home Medications: Ambulatory Orders Medication Instructions Recorded Aspirin [Aspirin, Baby] 81 mg PO DAILY@0800 12/27/15 Smz/Tmp Ds [Bactrim Ds] 1 tablet PO BID #20 tablet 12/28/15 Atorvastatin Calcium 40 mg PO DAILY 09/18/18 Cholecalciferol (VIT D3) [Vitamin 1,000 unit PO DAILY 09/18/18 D] Clopidogrel Bisulfate [Clopidogrel] 75 mg PO DAILY 09/18/18 Glimepiride 4 mg PO DAILY 09/18/18 Lisinopril 2.5 mg PO DAILY 09/18/18 Pioglitazone HCl 09/18/18 metFORMIN HCl [Glucophage] 1,000 mg PO BIDCM 09/18/18 Surgical History: no surgical history Lives: With Family Smoking Status: Current every day smoker Alcohol: None Drugs: None - *Family History Maternal History Items: Cancer Paternal History Items: Heart Disease Review of Systems Constitutional: Denies: Chills, Fever, Weight Change HEENT: Denies: Head Aches, Sinus Congestion, Sinus Drainage Cardiovascular: Denies: Chest Pain, Palpitations Respiratory: Denies: Cough, Shortness of breath at rest, Sputum production Gastrointestinal: Denies: Abdominal Pain, Nausea, Vomiting Genitourinary: Denies: Dysuria Skin: Reports: Wounds, - - necrotic ulcer to foot and necrotic hallux Psychiatric: Denies: Anxiety, Depression Patient Problems: Active and Suspected Problems Osteomyelitis (Acute) Necrosis of toe (Acute) DM type 2 (diabetes mellitus, type 2) (Acute) Hyperlipidemia (Acute) Osteomyelitis of right foot (Acute) Gas gangrene (Acute) Type 2 diabetes mellitus with diabetic polyneuropathy (Acute) Cellulitis of right foot (Acute) Abscess of right foot (Acute) - Physical Exam General: Alert, Oriented x3, Cooperative Extremities: Capillary Refill Less than 3 Seconds - To distal digits 2 through 5 of the right foot, No Calf Tenderness - Negative Luciano and Brown signs, Edema, Peripheral Pulses Normal - DP and PT pulses palpable to the right side Skin: Ulcer/ Wound - Entire right hallux is black and necrotic. There is also a plantar medial right foot ulcer that is unstageable with a necrotic eschar overlying this area as well. There is bogginess and crepitus appreciated to both the hallux as well as the plantar medial foot ulcer. Some purulence able to be expressed from each site. There is foul odor appreciated as well as some surrounding erythema. There is no streaking cellulitis at this time. Musculoskeletal: No Tenderness to Palpation of Joints or Extremities, Muscle Wasting Neurological: - - Epicritic sensation grossly absent lower extremities Psych/Mental Status: Normal Affect, Appropriate Vital Signs Temp Pulse Resp BP Pulse Ox 98.7 F 77 16 81/55 L 97 09/18/18 16:58 09/18/18 16:58 09/18/18 16:58 09/18/18 13:41 09/18/18 16:58 Oxygen Delivery Method Room Air Weight: 57.7 kg Body Mass Index (BMI) 21.8 Finger Stick Blood Glucose 401 Laboratory Tests Past 24 Hrs 09/18/18 09/18/18 09/18/18 09:35 09:35 09:35 WBC 13.3 H RBC 4.15 L Hgb 11.2 L Hct 33.9 L MCV 81.7 MCH 27.0 MCHC 33.0 RDW 12.8 RDW Differential 37.3 Plt Count 362 MPV 9.5 Immature Gran % (Auto) 0.300 Neut % (Auto) 88.9 H Lymph % (Auto) 6.4 L [place] % (Auto) 3.8 Eos % (Auto) 0.5 Baso % (Auto) 0.1 Absolute Neuts (auto) 11.8 H Absolute Lymphs (auto) 0.85 Total Counted Not Reportable ESR 51 H Sodium 137 Potassium 3.5 Chloride 99 Carbon Dioxide 30.0 Anion Gap 8 BUN 8 Creatinine 0.69 Estim Creat Clear Calc 74.87 Est GFR (MDRD) Af Amer 112 Est GFR (MDRD) Non-Af 93 BUN/Creatinine Ratio 11.6 Glucose 344 H Hemoglobin A1c 11.0 H Calcium 8.9 Total Bilirubin 0.60 AST 7 L ALT 14 Alkaline Phosphatase 126 H C-React Prot Ext Range 158.00 H Total Protein 7.8 Albumin 2.5 L Globulin 5.3 H Albumin/Globulin Ratio 0.5 L S.aureus Protein A PCR MRSA (PCR) 09/18/18 15:10 WBC RBC Hgb Hct MCV MCH MCHC RDW RDW Differential Plt Count MPV Immature Gran % (Auto) Neut % (Auto) Lymph % (Auto) [place] % (Auto) Eos % (Auto) Baso % (Auto) Absolute Neuts (auto) Absolute Lymphs (auto) Total Counted ESR Sodium Potassium Chloride Carbon Dioxide Anion Gap BUN Creatinine Estim Creat Clear Calc Est GFR (MDRD) Af Amer Est GFR (MDRD) Non-Af BUN/Creatinine Ratio Glucose Hemoglobin A1c Calcium Total Bilirubin AST ALT Alkaline Phosphatase C-React Prot Ext Range Total Protein Albumin Globulin Albumin/Globulin Ratio S.aureus Protein A PCR Pending MRSA (PCR) Pending POC Glucose 09/18/18 16:25 POC Glucose 317 H Assessment/Plan All Active Problems Osteomyelitis (Acute) Necrosis of toe (Acute) DM type 2 (diabetes mellitus, type 2) (Acute) Hyperlipidemia (Acute) Osteomyelitis of right foot (Acute) Gas gangrene (Acute) Type 2 diabetes mellitus with diabetic polyneuropathy (Acute) Cellulitis of right foot (Acute) Abscess of right foot (Acute) Osteomyelitis right foot Gas gangrene right foot Abscess right foot DM 2 with neuropathy Ulcer right foot Cellulitis right foot Other comorbidities This patient was carefully examined and evaluated in a bed. Vital signs were stable. WBC 13.3. ESR is 51 and CRP is 158. MRSA PCR is positive. Wound and blood cultures are pending. Patient currently on vancomycin and Zosyn. Infectious disease consult appreciated. Three-view x-rays taken of the right foot show soft tissue swelling with soft tissue emphysema deep to the plantar medial foot ulcer. There is also suspected osteomyelitis involving the great toe. At this time I discussed with both the patient and the patient's family with her permission, all of the possible treatment options as well as possible outcomes, risks, benefits. Due to the patient's clinical appearance as well as leukocytosis and evidence of soft tissue emphysema and suspected osteomyelitis, I feel it is in the patient's best interest to go to surgery. The patient and the patient's family agree with this plan. Hospitalist agrees with this plan for surgery. A signed consent was obtained for incision and drainage and debridement of all nonviable, necrotic, infected soft tissue and bone of the right foot with possible partial first ray amputation. The procedure was described in detail again with all risks and benefits being explained. All questions were answered to both the patient and the patient's family satisfaction. Patient signed a consent and agrees to proceed forward with this plan procedure. No guarantees were given. Podiatry will continue to follow this patient.
[2018-09-18 17:34] LABS: M R Staph aureus DNA By PCR POSITIVE (Negative); Probe Check PASS; Staph aureus DNA By PCR POSITIVE (Negative)
--- NOTE | 2018-09-18 17:35 | BON_PTH ---
PATIENT: ROSALINO LEVY LOC: [facility]3 U#:[id number] AGE/SX: 58/F ROOM: [facility]314 RE09/18/[address]: Dr. Chuy Narvaez MD : 1960 BED: 1 DIS: 09/21/2018 SPEC #: [id number] RECD: 09/19/18 07:45 STATUS: TIM REQ #: [id number] ALLEN: 09/18/18 17:[address]: Roland Blanco DEPT: SURGICAL PATHOLOGY RECD BY: Abran Serrano ENTERED: 09/19/18 08:34 SP TYPE: Bone OTHR DR: Dr. Roland Blanco, DPM MD Dr. Marquis Stock Chi, MD Tai Chi Kwok, MD Tissues: Bone of foot, NOS Procedures: PAS Fungus (control) Decalcification bone/plaque Special Stain Group I Surgery Specimen Level IV AFB Stain (control) Comments: @ Ordering doctor for DEC edited from to @ by BYRON at 09/19/18911 @ Ordering doctor for SUIII edited from to @ eneida MATTHEWS at 09/19/18 0912 @ Submitting doctor edited from to @ eneida MATTHEWS at 09/19/1812 HEADER OPERATION: Incision and drainage, debridement of all nonviable soft tissue PRE-OP DIAGNOSIS: Right foot osteomyelitis right foot cellulitis, right toe necrosis TISSUE SUBMITTED: Right hallux bone and tissue MICROSCOPIC DIAGNOSIS Right hallux bone and tissue: Gangrenous necrosis and ulceration with associated acute inflammation and abscess formation. Underlying bone with acute osteomyelitis. Special stains for acid fast bacilli and fungi are negative for organisms; matched controls are appropriate. WOLFGANG:xiomara 09/22/18 MICROSCOPIC DESCRIPTION Slides are reviewed. GROSS DESCRIPTION Received in fixative is one container labeled with the patient's name and designated right hallux bone and tissue. The specimen consists of a portion of toe measuring 5 x 3 x 2 cm. The specimen shows skin which is almost 90% brownish-black discoloration consistent with gangrenous necrosis. Plasterer Foreman sections are submitted in two cassettes as follows: 1 - skin and underlying soft tissue, 2??bone after decalcification. / WOLFGANG:xiomara 09/19/18 TC:2 CPT: 67093, 96348, 89726 x2
[2018-09-18] MEDS: Bupivacaine Mpf 0.5% 30 ML VIAL (17:55)
[2018-09-18 19:46] LABS: Bedside Glucose 261 mg/dL (70-110)
--- NOTE | 2018-09-18 20:14 | OP.PCM_ITS ---
Problem List (1) Osteomyelitis of right foot Status: Acute (2) Gas gangrene Status: Acute (3) Type 2 diabetes mellitus with diabetic polyneuropathy Status: Acute (4) Cellulitis of right foot Status: Acute (5) Abscess of right foot Status: Acute Report of Operation Date of Procedure: 09/18/18 Pre-Operative Diagnosis: gas gangrene and osteomyelitis with abscess of right foot Post-Operative Diagnosis: same Surgery/Procedure Performed:: Incision and drainage and debridement of all necrotic, nonviable, infected soft tissue and bone of the right foot with hallux amputation. Description of Surgical Findings:: Hemostasis: well padded right ankle tourniquet Type of Anesthesia:: Local MAC - Preoperative ankle block consisting of 10 mL of 0.5% Marcaine plain Specimen's removed: Necrotic and infected soft tissue and bone sent to pathology and microbiology for further evaluation. Estimated Blood Loss (mL): 20mL Description of Procedure: Indications: The patient is a 58 year old diabetic F was consulted to podiatry after presenting to ER today with what she says was about two weeks of right toe necrosis. Patient also has a positive past medical history of tobacco abuse, hypertension, hyperlipidemia, as well as history of CVA. Her great toe on the right has been black and has a small foul-smelling odor to it. This been going on for several weeks and she did not want to come to the doctor. She relates she had been seeing Dr. Anderson who was treating an ulcer to her great toe, but she says she could no longer afford to go to the office so she just treated the ulcer on her own. She admits to soaking the toe. She lives with one of her daughters who tries to help her with her dressing changes and keeping an eye on her. Daughter states that patient is non compliant and will not stay off her foot. She is unsure exactly how long the other ulcer to medial plantar foot area has been present. Vital signs are stable. WBC 13.3. ESR is 51 and CRP is 158. MRSA PCR is positive. Wound and blood cultures are pending. Patient currently on vancomycin and Zosyn. Three-view x-rays taken of the right foot show soft tissue swelling with soft tissue emphysema deep to the plantar medial foot ulcer. There is also suspected osteomyelitis involving the great toe.. CTA was performed and showed now narrowing of anterior tibial, posterior tibial, and peroneal arteries. At this time, the planned surgical procedure was discussed in great detail with the patient as well as the patient's family members with the patient's consent. This was done to the patient and her family's satisfaction. The patient agrees to proceed with the planned procedure and operation at this time. All of the risks and potential complications were reviewed to the patient and his family. They understand the importance of proper compliance following this procedure to optimize the potential for healing, but no guarantees were given. She is advised that the complications and risks include, but are not limited to, further infection, need for further surgeries, recurrence of ulcer, transfer lesions, increased deformity of foot and toes, weakness, loss of strength, loss of function, the potential for further transfer ulcerations or lesions, nonhealing, delayed healing, blood clots, chronic swelling, Charcot foot/ankle, nerve damage, inability to walk, inability to wear shoes, severe pain, complex regional pain syndrome, need for more proximal or extensive amputations such as a TMA or BKA, loss of complete limb, or even loss of life. All of the patient's questions were answered to her satisfaction as well as the satisfaction of his family members. It was then agreed upon to proceed with the debridement of all infected, necrotic, nonviable soft tissue and bone of the right foot with right hallux amputation. The consent form was reviewed with the patient and was freely signed. Again, no guarantees were given. Description of procedure: The patient was brought into the operating room and placed on the table in the supine position. The patient was already on IV antib iotics per hospitalist (carlos and raik). The patient received MAC anesthesia with local anesthetic. A local anesthetic block was then performed in ankle block fashion consisting of 10 mL of 0.5% Marcaine plain. A well-padded ankle tourniquet was then applied to the patient's right ankle. The right foot and ankle were then scrubbed prepped and draped in the usual aseptic manner. A timeout was then performed and the patient was properly identified and the surgical plan was confirmed. Next attention was directed to the medial aspect of the distal first right MPJ. The ankle tourniquet was then inflated to 250 mmHg. Using a #15 scalpel blade, a horizontal fishmouth incision was made distal to the 1st MPJ. The incision and dissection was carefully carried down to the level of bone making sure to avoid any vital neurovascular structures. Next, dissection was carefully carried out, freeing the hallux of any soft tissue attachments and then disarticulating the entire hallux at the 1st MPJ. Purulence and malodor was encountered. The hallux was then passed from the operating table. Part of the hallux and bone was then sent to microbiology for aerobic, anaerobic, acid-fast, and fungal evaluation, and then the remaining hallux bone and soft tissue was sent to pathology for further evaluation. Next, attention was then directed to the plantar medial foot ulcer. Using a versa jet on setting 6, the area was provided free of any necrotic, nonviable, infected soft tissue. Approximately 2mL of purulence was encountered as well as malodor. Using a Cornish elevator, it was noted that the p lantar medial ulcer connected with the lateral aspect of the hallux amputation site. The Corn[place] elevator was also able to track distally to the plantar fat pad just proximal to the digits as well as proximally to just distal to the heel. An incision was carefully made in each of these areas connecting it with the original plantar medial foot ulcer. Necrotic soft tissue is noted throughout this plantar aspect of the foot. The versa jet on setting 6 was again employed to remove all nonviable, necrotic, infected soft tissue of the entire open aspect of the plantar foot as well as the open hallux amputation site. This area was debrided down to and including some of the muscle and tendon. Once complete, the remaining open surgical site appeared healthy at this time. Pre- debridement plantar medial foot ulcer measured approximately 4cm x 4cm x unstageable depth due to overlying eschar. Post debridement measured approximately 13 cm x 6 cm x 1 cm. Open hallux amputation site measured approx imately 3 cm x 4 cm x 2 cm. No purulence was able to be expressed from any direction. Surgical site was then flushed with copious amounts of normal sterile saline. The right ankle tourniquet was then deflated. Blood flow noted to surgical site upon deflation as well as hyperemic response to remaining digits of the right foot. Once complete, the surgical site was packed with 1/4'' iodoform packing, followed by 4x4's, ABDs, kerlix, and an JOSE bandage. After Procedure: The patient tolerated the procedure and anesthesia well. She was transferred to PACU with vital signs stable and vascular status intact. She will be transferred back to the medical surgical floor upon continued stability. She and her family members were advised to continue with strict nonweightbearing to right lower extremity and to keep the dressing clean dry and intact. Patient is to continue with IV antibiotics under the management of hospitalist. Infectious disease will be consulted. To continue DVT prophylaxis and medical management per primary team. She is to elevate the right foot for postop pain and inflammation management. Three-view left foot postop x-rays ordered. I will continue to follow this patient while in house.
--- NOTE | 2018-09-18 20:40 | RAD_ITS ---
STUDY: X-RAY - RIGHT FOOT CLINICAL: Female, 58 years old. A supplement TECHNIQUE: 3 view(s) of the foot. COMPARISON: September 18, 2018 10:01 AM FINDINGS: Normal talus, calcaneus, and tarsal bones. Normal visualized subtalar, talonavicular, calcaneocuboid, tarsal and tarsometatarsal articulations. Normal metatarsi. Normal metatarsophalangeal joint of the great toe. There is been amputation of the first digit at the metatarsophalangeal joint. There is abundant gas within the soft tissues coursing along the plantar surface of the right foot.. Normal second through fifth metatarsophalangeal joints. Normal interphalangeal joints and phalanges of the lesser toes. RAD/Foot min 3 Views IMPRESSION: Postoperative changes status post amputation of the first digit, with an abundant amount of gas in the soft tissues. Electronically Signed: Cyn Ibarra MD at 22:03 EDT Tel , Service support ,
[2018-09-18] MEDS: 0.9% Normal Saline 1,000 ML 100 ML IV (20:46)
[2018-09-18] MEDS: Vancomycin IV 1,000 MG/200 ML BAG 200 MG IV (22:02)
[2018-09-18] MEDS: HYDROcodone Bitartrate/Apap 5/325 Tablet PO (22:05)
[2018-09-18] MEDS: Atorvastatin Calcium 40 MG Tablet PO (22:07)
[2018-09-18] MEDS: Insulin Lispro 100 UNIT/ML INSULN.PEN SC (22:13)
[2018-09-18 22:35] LABS: Bedside Glucose 238 mg/dL (70-110)
[2018-09-18 22:35] LABS: Bedside Glucose 278 mg/dL (70-110)
[2018-09-19 02:55] VITALS: BP 126/60; PULSE 68; RESP 18; TEMP 37.1; O2SAT 94
[2018-09-19] MEDS: HYDROcodone Bitartrate/Apap 5/325 Tablet PO ×2 (06:15→19:48)
[2018-09-19] MEDS: Insulin Lispro 100 UNIT/ML INSULN.PEN SC ×4 (06:16→22:04)
[2018-09-19] MEDS: 0.9% Normal Saline 1,000 ML 100 ML IV ×2 (06:19→18:05)
[2018-09-19 06:43] LABS: Absolute Lymphocyte Count 0.91 X10^3/ul (0.83-4.51); Absolute Neutrophil Count 11.9 X10^3/uL (2.0-7.7); Basophil# 0.01 X10^3/uL; Basophil% 0.1 % (0-1); Eosinophil# 0.12 X10^3/uL; Eosinophils% 0.9 % (0-5); Hematocrit 30.2 % (37-47); Hemoglobin 9.7 g/dl (12.0-15.0); Lymphocyte # 0.91 X10^3/ul (4.0); Lymphocyte % 6.6 % (19-41); Mean Corp Hgb Conc 32.1 g/gl (32-36); Mean Corpuscular Hgb 26.3 pg (27.0-32.0); Mean Corpuscular Volume 81.8 fL (81-99); Mean Platelet Vol. 9.4 fl (6.2-12.0); Monocyte# 0.72 X10^3/uL; Monocyte% 5.2 % (0-10); Neutrophil # 11.94 X10^3/uL (2.7-7.7); Neutrophil % 86.8 % (47-70); Platelet Count 365 K/mm3 (150-450); RBC Distribution Width CV 12.8 % (11.6-14.6); RBC Distribution Width SD 36.7 fl (35.1-43.9); Red Blood Count 3.69 M/mm3 (4.2-5.4); White Blood Count 13.8 K/mm3 (4.4-11.0)
[2018-09-19 06:46] LABS: POSITIVE COUNT NO; POSITIVE DIFFERENTIAL NO; POSITIVE MORPHOLOGY NO
[2018-09-19 07:06] LABS: Bedside Glucose 164 mg/dL (70-110)
[2018-09-19 07:07] LABS: Anion Gap 4 (5-15); BUN 8 mg/dL (7-18); BUN/Creat Ratio 15.7 RATIO (10-20); Calcium,Total 8.2 mg/dL (8.5-10.1); Chloride 103 mmol/L (98-107); Creatinine, Serum 0.51 mg/dL (0.55-1.02); EST Glomerular Filtration Rate 131 mL/min (>60); Est Glom Filt Rate - Afr Amer 159 mL/min (>60); Glucose 146 mg/dL (74-106); Potassium 3.4 mmol/L (3.5-5.1); Sodium Level 136 mmol/L (136-145)
--- NOTE | 2018-09-19 08:23 | PN_ITS ---
Patient Problems: Active and Suspected Problems Osteomyelitis (Acute) Necrosis of toe (Acute) DM type 2 (diabetes mellitus, type 2) (Acute) Hyperlipidemia (Acute) Osteomyelitis of right foot (Acute) Gas gangrene (Acute) Type 2 diabetes mellitus with diabetic polyneuropathy (Acute) Cellulitis of right foot (Acute) Abscess of right foot (Acute) Subjective: Feels better today, had surgery last night. Is hungry and would like to eat today. Vitals/I&O's: Vital Signs Temp Pulse Resp BP Pulse Ox 98.7 F 68 18 126/60 H 94 09/19/18 02:55 09/19/18 02:55 09/19/18 02:55 09/19/18 02:55 09/19/18 02:55 Oxygen Delivery Method Room Air Weight: 127 lb 3.307 oz Body Mass Index (BMI) 21.8 Finger Stick Blood Glucose 401 Intake and Output for Last 24 Hours 09/17/18 09/18/18 09/19/18 23:59 23:59 23:59 Intake Total 1000 / 1857 1802 / 1802 Output Total 750 / 750 Balance 1000 / 1457 1052 / 1052 General: Alert, Oriented x3, Cooperative, No apparent distress HEENT: Atraumatic, PERRLA, EOMI, Normocephalic Oral: Moist Mucosa Neck: Supple, No JVD Lungs: Clear to auscultation, Normal air movement, No rhonchi, No wheeze, No rales Cardiovascular: Regular rate, Regular Rhythm, Normal S1, Normal S2, No murmurs Abdomen: Soft, Non Tender, Non-Distended, No Hepato-splenomegaly Extremities: No edema, Capillary Refill Less than 3 Seconds, Skin: No rashes, No breakdown, dressing is intact Neurological: Neuro grossly intact, Sensory exam intact to light touch and pain Psych/Mental Status: Normal Affect, Appropriate Laboratory Results 09/18/18 09:35: WBC 13.3 H, RBC 4.15 L, Hgb 11.2 L, Hct 33.9 L, MCV 81.7, MCH 27.0, MCHC 33.0, RDW 12.8, RDW Differential 37.3, Plt Count 362, MPV 9.5, Immature Gran % (Auto) 0.300, Neut % (Auto) 88.9 H, Lymph % (Auto) 6.4 L, [place] % (Auto) 3.8, Eos % (Auto) 0.5, Baso % (Auto) 0.1, Absolute Neuts (auto) 11.8 H, Absolute Lymphs (auto) 0.85, Total Counted Not Reportable, ESR 51 H 09/18/18 09:35: Sodium 137, Potassium 3.5, Chloride 99, Carbon Dioxide 30.0, Anion Gap 8, BUN 8, Creatinine 0.69, Estim Creat Clear Calc 74.87, Est GFR (MDRD) Af Amer 112, Est GFR (MDRD) Non-Af 93, BUN/Creatinine Ratio 11.6, Glucose 344 H, Calcium 8.9, Total Bilirubin 0.60, AST 7 L, ALT 14, Alkaline Phosphatase 126 H, C-React Prot Ext Range 158.00 H, Total Protein 7.8, Albumin 2.5 L, Globulin 5.3 H, Albumin/Globulin Ratio 0.5 L 09/18/18 09:35: Hemoglobin A1c 11.0 H 09/18/18 15:10: S.aureus Protein A PCR POSITIVE H, MRSA (PCR) POSITIVE H 09/18/18 16:25: POC Glucose 317 H 09/18/18 19:35: POC Glucose 261 H 09/18/18 20:25: POC Glucose 238 H 09/18/18 21:54: POC Glucose 278 H 09/19/18 06:14: WBC 13.8 H, RBC 3.69 L, Hgb 9.7 L, Hct 30.2 L, MCV 81.8, MCH 26.3 L, MCHC 32.1, RDW 12.8, RDW Differential 36.7, Plt Count 365, MPV 9.4, Immature Gran % (Auto) 0.400, Neut % (Auto) 86.8 H, Lymph % (Auto) 6.6 L, [place] % (Auto) 5.2, Eos % (Auto) 0.9, Baso % (Auto) 0.1, Absolute Neuts (auto) 11.9 H, Absolute Lymphs (auto) 0.91, Total Counted Not Reportable 09/19/18 06:14: Sodium 136, Potassium 3.4 L, Chloride 103, Carbon Dioxide 29.0, Anion Gap 4 L, BUN 8, Creatinine 0.51 L, Estim Creat Clear Calc 101.30, Est GFR (MDRD) Af Amer 159, Est GFR (MDRD) Non-Af 131, BUN/Creatinine Ratio 15.7, Glucose 146 H, Calcium 8.2 L 09/19/18 06:14: POC Glucose 164 H Current Medications Hydrocodone Bitart/Acetaminophen ([place] 5mg-325mg) 1 - 2 tablet PO Q6H PRN PRN PRN Reason: Moderate-severe pain Last Admin: 09/19/18 06:15 Dose: 2 tablet Documented by: Atorvastatin Calcium (Lipitor) [address] [facility] Last Admin: 09/18/18 22:07 Dose: 40 mg Documented by: Cholecalciferol (Vitamin D) 1,[address] [facility] Dextrose (D50w Syringe) 0 gm IV X1 PRN; Protocol PRN Reason: Hypoglycemia Glucagon () 1 mg IM .X1 PRN PRN Reason: Hypoglycemia Sodium Chloride () 1,000 mls @ 100 mls/hr IV .Q10H [facility] Last Admin: 09/19/18 06:19 Dose: 100 mls/hr Documented by: Piperacillin Sod/Tazobactam (Sod 3.375 gm/ Sodium Chloride) 50 mls @ 12.5 mls/hr IV Q8 [facility] Last Admin: 09/19/18 06:16 Dose: 12.5 mls/hr Documented by: Vancomycin IV Pharmacy to Dose (1 ea/ Sodium Chloride) 500 mls @ 250 mls/hr IV X1 PRN; Protocol PRN Reason: Rx to Dose Vancomycin HCl (Vancomycin) 1,000 mg in 200 mls @ 200 mls/hr IV Q12H [facility] Last Admin: 09/18/18 22:02 Dose: 200 mls/hr Documented by: Insulin Glargine (Lantus (Bkc)) [address] [facility] Last Admin: 09/18/18 22:12 Dose: 10 u Documented by: Insulin Human Lispro ([facility]alog K[facility] (Bk)) [facility]; Protocol Last Admin: 09/19/18 06:16 Dose: 2 units Documented by: Lisinopril (Zestril) 2.[address] [facility] Ondansetron HCl (Zofran) 4 mg IV Q8H PRN PRN PRN Reason: NAUSEA/VOMITING Senna/Docusate Sodium (Senokot-S, Kiersten-Colace) 2 tablet PO DAILY PRN PRN PRN Reason: CONSTIPATION Sodium Chloride () 10 - 40 ml IV UD PRN PRN Reason: SALINE FLUSH Medical Necessity - Tobacco Use Smoking Status: Current every day smoker Assessment/Plan All Active Problems Osteomyelitis (Acute) Necrosis of toe (Acute) DM type 2 (diabetes mellitus, type 2) (Acute) Hyperlipidemia (Acute) Osteomyelitis of right foot (Acute) Gas gangrene (Acute) Type 2 diabetes mellitus with diabetic polyneuropathy (Acute) Cellulitis of right foot (Acute) Abscess of right foot (Acute) 1. Right toe necrosis with likely osteomyelitis postop day 1 from right great toe amputation -We will continue with Zosyn and vancomycin -Consult podiatry for amputation -Consult to the wound care nurse for assistance in management after surgery -IV fluids at 100, can DC once taking adequate p.o. -Denies any significant pain and therefore will hold off on pain meds 2. DM 2 -We will hold all of her oral hypoglycemics and start her on 10 units of Lantus as well as a sliding scale insulin -This is likely the cause of her right toe osteomyelitis and necrosis 3. Tobacco abuse -Discussed cessation -Provide a nicotine patch if necessary 4. HTN/HLD/history of CVA -Stable -Continue with home medications and will monitor -Continue with her Plavix after surgery DVT: SCDs Code Visit Inpatient E&M: 33684 Subs Hosp L2
[2018-09-19 10:12] VITALS: BP 119/63; PULSE 75; RESP 18; TEMP 36.7; O2SAT 95
[2018-09-19] MEDS: Vancomycin IV 1,000 MG/200 ML BAG 200 MG IV (10:13)
[2018-09-19] MEDS: Lisinopril 2.5 MG Tablet PO (10:13)
--- NOTE | 2018-09-19 10:49 | PCM.PROGNOTE ---
Patient Problems: Active and Suspected Problems Osteomyelitis (Acute) Necrosis of toe (Acute) DM type 2 (diabetes mellitus, type 2) (Acute) Hyperlipidemia (Acute) Osteomyelitis of right foot (Acute) Gas gangrene (Acute) Type 2 diabetes mellitus with diabetic polyneuropathy (Acute) Cellulitis of right foot (Acute) Abscess of right foot (Acute) Subjective: This patient was seen POD #1 s/p incision and drainage and debridement of all necrotic, nonviable, infected soft tissue and bone of right foot with hallux amputation. Patient is resting comfortably in bed. She has an appetite. She had no adverse events over night. She is feeling better today than she did yesterday. Family is there today as well. - Physical Exam General: Alert, Oriented x3, Cooperative, No apparent distress Extremities: No Calf Tenderness - negative toya and dobbs signs bilateral, Edema - improving edema to foot, Peripheral Pulses Normal - DP and PT pulses palpable bilateral Skin: Ulcer/ Wound - Ulcer/open surgical site to plantar foot measuring approximately 13 x 6 x 1 cm as well as open hallux amputation site measuring approximately 3 x 4 x 2 cm. There is no purulence appreciated today. There is no malodor noted to the site. This is down to level of muslce/tendon of plantar foot. Bone of first met head exposed to distal open hallux amputation site. No signs of necrotic appearing tissue noted today. Musculoskeletal: No Tenderness to Palpation of Joints or Extremities, Tenderness - some very minor tenderness noted with surgical site manipulation Neurological: - - Epicritic sensation grossly absent lower extremities Psych/Mental Status: Normal Affect, Appropriate Vital Signs Temp Pulse Resp BP Pulse Ox 98.1 F 75 18 119/63 95 09/19/18 10:12 09/19/18 10:12 09/19/18 10:12 09/19/18 10:12 09/19/18 10:12 Oxygen Delivery Method Room Air Weight: 57.7 kg Body Mass Index (BMI) 21.8 Finger Stick Blood Glucose 401 Intake and Output for Last 24 Hours 09/17/18 09/18/18 09/19/18 23:59 23:59 23:59 Intake Total 1000 / 1857 1802 / 1802 Output Total 750 / 750 Balance 1000 / 1457 1052 / 1052 Microbiology Past 72 Hours 09/18/18 15:10 Gram Stain - Final Wound Drainage - Aerobic & Anaerobic Swabs Wound Culture - Preliminary Mixed Gram Pos & Gram Neg Org 09/18/18 Unknown Gram Stain - Final Wound - Other Laboratory Tests Past 24 Hrs 09/18/18 09/18/18 09/19/18 09:35 15:10 06:14 WBC 13.8 H RBC 3.69 L Hgb 9.7 L Hct 30.2 L MCV 81.8 MCH 26.3 L MCHC 32.1 RDW 12.8 RDW Differential 36.7 Plt Count 365 MPV 9.4 Immature Gran % (Auto) 0.400 Neut % (Auto) 86.8 H Lymph % (Auto) 6.6 L [place] % (Auto) 5.2 Eos % (Auto) 0.9 Baso % (Auto) 0.1 Absolute Neuts (auto) 11.9 H Absolute Lymphs (auto) 0.91 Total Counted Not Reportable Sodium Potassium Chloride Carbon Dioxide Anion Gap BUN Creatinine Estim Creat Clear Calc Est GFR (MDRD) Af Amer Est GFR (MDRD) Non-Af BUN/Creatinine Ratio Glucose Hemoglobin A1c 11.0 H Calcium S.aureus Protein A PCR POSITIVE H MRSA (PCR) POSITIVE H 09/19/18 06:14 WBC RBC Hgb Hct MCV MCH MCHC RDW RDW Differential Plt Count MPV Immature Gran % (Auto) Neut % (Auto) Lymph % (Auto) [place] % (Auto) Eos % (Auto) Baso % (Auto) Absolute Neuts (auto) Absolute Lymphs (auto) Total Counted Sodium 136 Potassium 3.4 L Chloride 103 Carbon Dioxide 29.0 Anion Gap 4 L BUN 8 Creatinine 0.51 L Estim Creat Clear Calc 101.30 Est GFR (MDRD) Af Amer 159 Est GFR (MDRD) Non-Af 131 BUN/Creatinine Ratio 15.7 Glucose 146 H Hemoglobin A1c Calcium 8.2 L S.aureus Protein A PCR MRSA (PCR) POC Glucose 09/19/18 09/18/18 09/18/18 06:14 21:54 20:25 POC Glucose 164 H 278 H 238 H 09/18/18 09/18/18 19:35 16:25 POC Glucose 261 H 317 H Medical Necessity - Tobacco Use Smoking Status: Current every day smoker Assessment/Plan All Active Problems Osteomyelitis (Acute) Necrosis of toe (Acute) DM type 2 (diabetes mellitus, type 2) (Acute) Hyperlipidemia (Acute) Osteomyelitis of right foot (Acute) Gas gangrene (Acute) Type 2 diabetes mellitus with diabetic polyneuropathy (Acute) Cellulitis of right foot (Acute) Abscess of right foot (Acute) POD #1 s/p incision and drainage and debridement of all necrotic, nonviable, infected soft tissue and bone of the right foot with open hallux amputation Osteomyelitis right foot Gas gangrene right foot Abscess right foot DM 2 with neuropathy Ulcer right foot Cellulitis right foot Other comorbidities This patient was carefully examined and evaluated in a bed POD #1 s/p incision and drainage and debridement of all necrotic, nonviable, infected soft tissue and bone of the right foot with open hallux amputation . Vital signs are stable. WBC 13.8. MRSA PCR is positive. Surgical and blood cultures are pending. Deep wound cultures taken yesterday show preliminary results of mixed gram positive and gram negative organisms. Patient currently on vancomycin and Zosyn. Infectious disease consult would be appreciated. Open surgical sites examined bedside today. No purulence able to be expressed from sites today. Malodor resolved at this time. No necrotic appearing tissue noted today. At this time, the aforementioned open surgical sites were flushed with copious amounts of normal sterile saline. Once complete, the areas were then dressed with saline wet to dry 4x4 gauze, followed by ABDs, Kerlix, and kieran bandage. This irrigation and dressing should be performed twice daily. Patient is to keep foot elevated and offloaded while in bed. Patient is to be non weightbearing to right foot at all times. We discussed that patient remains at risk for further surgical intervention, amputation, loss of limb etc. Importance of compliance discussed in detail. She and her family understand this. Podiatry will continue to monitor this patient closely while in house.
--- NOTE | 2018-09-19 11:15 | CON.PCM_ITS ---
Problem List (1) Osteomyelitis Status: Acute (2) Osteomyelitis of right foot Status: Acute Reason for Consult: foot infection Consulted by: Dr. Narvaez History of Present Illness: The patient is a 58 year old F with htn and DM neuropathy, presented with one week of progressive R foot pain, foul odor, purulent drainage, and redness. Some associated fever. No trauma, but infection started with blister on toe. Toe turned black. She has not seen doctor in a long time. Came to ED, admitted on vanc/zosyn, taken to OR 09/[address] Blanco. Feeling better, but now n/v. Full ROS performed and neg except as noted above. - Medical History Past Medical History (Chronic Problems): Chronic Problems Hypertension (Chronic) Allergies/Adverse Reactions: Allergies No Known Allergies Allergy (Verified 09/18/18 08:46) Home Medications: Ambulatory Orders Medication Instructions Recorded Aspirin [Aspirin, Baby] 81 mg PO DAILY@0800 12/27/15 Smz/Tmp Ds [Bactrim Ds] 1 tablet PO BID #20 tablet 12/28/15 Atorvastatin Calcium 40 mg PO DAILY 09/18/18 Cholecalciferol (VIT D3) [Vitamin 1,000 unit PO DAILY 09/18/18 D] Clopidogrel Bisulfate [Clopidogrel] 75 mg PO DAILY 09/18/18 Glimepiride 4 mg PO DAILY 09/18/18 Lisinopril 2.5 mg PO DAILY 09/18/18 Pioglitazone HCl 09/18/18 metFORMIN HCl [Glucophage] 1,000 mg PO BIDCM 09/18/18 - Social History Tobacco Use: cigarettes Vital Signs Temp Pulse Resp BP Pulse Ox 98.1 F 75 18 119/63 95 09/19/18 10:12 09/19/18 10:12 09/19/18 10:12 09/19/18 10:12 09/19/18 10:12 Oxygen Delivery Method Room Air Weight: 57.7 kg Body Mass Index (BMI) 21.8 Finger Stick Blood Glucose 401 Microbiology Past 72 Hours 09/18/18 15:10 Gram Stain - Final Wound Drainage - Aerobic & Anaerobic Swabs Wound Culture - Preliminary Mixed Gram Pos & Gram Neg Org 09/18/18 Unknown Gram Stain - Final Wound - Other Laboratory Tests Past 24 Hrs 09/18/18 09/18/18 09/19/18 09:35 15:10 06:14 WBC 13.8 H RBC 3.69 L Hgb 9.7 L Hct 30.2 L MCV 81.8 MCH 26.3 L MCHC 32.1 RDW 12.8 RDW Differential 36.7 Plt Count 365 MPV 9.4 Immature Gran % (Auto) 0.400 Neut % (Auto) 86.8 H Lymph % (Auto) 6.6 L [place] % (Auto) 5.2 Eos % (Auto) 0.9 Baso % (Auto) 0.1 Absolute Neuts (auto) 11.9 H Absolute Lymphs (auto) 0.91 Total Counted Not Reportable Sodium Potassium Chloride Carbon Dioxide Anion Gap BUN Creatinine Estim Creat Clear Calc Est GFR (MDRD) Af Amer Est GFR (MDRD) Non-Af BUN/Creatinine Ratio Glucose Hemoglobin A1c 11.0 H Calcium S.aureus Protein A PCR POSITIVE H MRSA (PCR) POSITIVE H 09/19/18 06:14 WBC RBC Hgb Hct MCV MCH MCHC RDW RDW Differential Plt Count MPV Immature Gran % (Auto) Neut % (Auto) Lymph % (Auto) [place] % (Auto) Eos % (Auto) Baso % (Auto) Absolute Neuts (auto) Absolute Lymphs (auto) Total Counted Sodium 136 Potassium 3.4 L Chloride 103 Carbon Dioxide 29.0 Anion Gap 4 L BUN 8 Creatinine 0.51 L Estim Creat Clear Calc 101.30 Est GFR (MDRD) Af Amer 159 Est GFR (MDRD) Non-Af 131 BUN/Creatinine Ratio 15.7 Glucose 146 H Hemoglobin A1c Calcium 8.2 L S.aureus Protein A PCR MRSA (PCR) - Other Studies Radiology: [] reviewed Other Studies: [] Route of nutrition/ use of supplements: [] Nutritional Intake: [] IV Site: [] Robles Catheter: [] - Physical Exam General: Alert, Oriented x3, Cooperative, No apparent distress HEENT: Atraumatic, PERRLA, EOMI Neck: Supple, No Nodes Lungs: Clear to auscultation, Normal air movement Cardiovascular: Regular rate, Regular Rhythm, No murmurs Abdomen: Soft, Non Tender, Non-Distended Skin: Ulcer/ Wound - reviewed photo of R foot IV Site: Peripheral, without redness Musculoskeletal: No Tenderness to Palpation of Joints or Extremities Neurological: Cranial nerves II-XII grossly intact - Assessment/Plan Antibiotics: [] Assessment/Plan: [] Active and Suspected Problems Osteomyelitis (Acute) Necrosis of toe (Acute) DM type 2 (diabetes mellitus, type 2) (Acute) Hyperlipidemia (Acute) Osteomyelitis of right foot (Acute) Gas gangrene (Acute) Type 2 diabetes mellitus with diabetic polyneuropathy (Acute) Cellulitis of right foot (Acute) Abscess of right foot (Acute) R foot osteo and gas gangrene with DM neuropathy - taken to OR 09/18 for I&D by Dr. Blanco. Surg cx pending, PCR shows MRSA. On vanc/zosyn. Will add clinda for anti-toxin effect given gas and necrosis. Will follow, thank you, d/w Dr. Narvaez and wound care.
--- NOTE | 2018-09-19 11:16 | NURSING ---
wound photo: right foot
--- NOTE | 2018-09-19 11:17 | NURSING ---
wound photo: right foot
[2018-09-19] MEDS: Ondansetron 4 MG/2 ML Vial IV (11:50)
[2018-09-19] MEDS: 0.9% NaCl Peripheral Flush Adult/Peds IV (11:50)
[2018-09-19 12:05] LABS: Bedside Glucose 285 mg/dL (70-110)
--- NOTE | 2018-09-19 15:30 | CPS ---
Pt wears CPAP 7cmH2O at home with a full face mask. Pt/family offered hospital pap in which pt/family currently refusing to use at this time. Family unsure if they will bring hers in or not.
[2018-09-19 16:53] VITALS: BP 141/60; PULSE 70; RESP 18; TEMP 37.2; O2SAT 95
[2018-09-19 17:06] LABS: Bedside Glucose 312 mg/dL (70-110)
[2018-09-19 20:10] VITALS: BP 147/74; PULSE 74; RESP 18; TEMP 36.8; O2SAT 97
[2018-09-19 21:14] LABS: Vancomycin, Trough Level 8.3 ug/mL (5.0-15.0)
[2018-09-19] MEDS: Glucerna Shake 120 ML LIQUID PO (22:03)
[2018-09-19] MEDS: Atorvastatin Calcium 40 MG Tablet PO (22:05)
--- NOTE | 2018-09-19 23:44 | PHA.PHARE_ITS ---
Consult Pharmacy has been consulted to manage selected antiobiotic: Vancomycin Type of Consult: Follow-up Suspected Infection: Osteomyelitis Prior Doses of Antibiotics Received/Current Regimen: Medications Vancomycin HCl 1,250 mg/ (Sodium Chloride) 275 mls @ 167 mls/hr IV [facility] Last Admin: 09/19/18 23:18 Dose: 167 mls/hr Discontinued Medications Vancomycin HCl (Vancomycin) 1,000 mg in 200 mls @ 200 mls/hr IV Q12[facility] Last Admin: 09/19/18 10:13 Dose: 200 mls/hr Labs: Sodium 136 mmol/L (136-145) 09/19/18 06:14 Potassium 3.4 mmol/L (3.5-5.1) L 09/19/18 06:14 Chloride 103 mmol/L (98-107) 09/19/18 06:14 Carbon Dioxide 29.0 mmol/L (21.0-32.0) 09/19/18 06:14 4 (5-15) L 09/19/18 06:14 BUN 8 mg/dL (7-18) 09/19/18 06:14 0.51 mg/dL (0.55-1.02) L 09/19/18 06:14 Est GFR (MDRD) Af Amer 159 mL/min (>60) 09/19/18 06:14 Est GFR (MDRD) Non-Af 131 mL/min (>60) 09/19/18 06:14 15.7 RATIO (10-20) 09/19/18 06:14 Glucose 146 mg/dL (74-106) H 09/19/18 06:14 Vancomycin Trough 8.3 ug/mL (5.0-15.0) 09/19/18 20:34 Microbiology: Microbiology 09/18/18 09:40 Blood Culture (Wb) - Anticubital Right Bacteria Detection (PCR) - Final Staphylococcus epidermidis 09/18/18 09:40 Blood Culture (Wb) - Anticubital Right Blood Culture - Preliminary Staphylococcus epidermidis 09/18/18 Unknown Wound - Other Gram Stain - Final 09/18/18 Unknown Wound - Other Wound Culture - Preliminary Staphylococcus aureus Gram negative joyce 09/18/18 15:10 Wound Drainage - Aerobic & Anaerobic Swabs Gram Stain - Final 09/18/18 15:10 Wound Drainage - Aerobic & Anaerobic Swabs Wound Culture - Preliminary Mixed Gram Pos & Gram Neg Org Weight used for dosin.7 kg Estimated Creatinine Clearance: 101 Goal Trough: 15-20 mcg/mL Pharmacy Plan for Drug Dosing: Trough level returned at 8.3, well below the target range of 15-20. Considering this and increase in CrCl to 101, will increase dose and frequency to 1250mg q8h. Will re-draw a trough level prior to the 4th dose of new order. Pharmacy Service will continue to monitor and adjust dosing as required. Follow-Up Labs: Trough Vancomycin Labs to be done on [date and time ordered]: 09/20/18 @4627
[2018-09-20 00:41] LABS: Bedside Glucose 388 mg/dL (70-110)
[2018-09-20 02:00] VITALS: BP 142/64; PULSE 64; RESP 18; TEMP 36.8; O2SAT 95
[2018-09-20 05:59] LABS: Absolute Lymphocyte Count 1.17 X10^3/uL (0.83-4.51); Absolute Neutrophil Count 8.8 X10^3/uL (2.0-7.7); Basophil# 0.02 X10^3/uL; Basophil% 0.2 % (0-1); Eosinophil# 0.18 X10^3/uL; Eosinophils% 1.7 % (0-5); Hematocrit 29.2 % (37-47); Hemoglobin 9.1 g/dL (12.0-15.0); Lymphocyte # 1.17 X10^3/ul (4.0); Lymphocyte % 10.8 % (19-41); Mean Corp Hgb Conc 31.2 g/dL (32-36); Mean Corpuscular Hgb 26.6 pg (27.0-32.0); Mean Corpuscular Volume 85.4 fL (81-99); Mean Platelet Vol. 9.3 fl (6.2-12.0); Monocyte# 0.58 X10^3/uL; Monocyte% 5.4 % (0-10); NRBC Flagged by Analyzer 0 % (0-5); Neutrophil # 8.76 X10^3/uL (2.7-7.7); Neutrophil % 81.2 % (47-70); Platelet Count 306 K/mm3 (150-450); RBC Distribution Width CV 12.7 % (11.6-14.6); RBC Distribution Width SD 39.4 fl (35.1-43.9); Red Blood Count 3.42 M/mm3 (4.2-5.4); White Blood Count 10.8 K/mm3 (4.4-11.0)
[2018-09-20] MEDS: 0.9% Normal Saline 1,000 ML 100 ML IV ×2 (06:18→21:18)
[2018-09-20 06:23] LABS: Anion Gap 7 (5-15); BUN 11 mg/dL (7-18); BUN/Creat Ratio 19.5 RATIO (10-20); Calcium,Total 8.3 mg/dL (8.5-10.1); Chloride 104 mmol/L (98-107); Creatinine, Serum 0.56 mg/dL (0.55-1.02); EST Glomerular Filtration Rate 116 mL/min (>60); Est Glom Filt Rate - Afr Amer 141 mL/min (>60); Estimated Creatinine Clearance 92.25 ml/min; Glucose 137 mg/dL (74-106); Potassium 3.3 mmol/L (3.5-5.1); Sodium Level 138 mmol/L (136-145)
[2018-09-20 06:46] LABS: Bedside Glucose 147 mg/dL (70-110)
--- NOTE | 2018-09-20 06:59 | PCM.PROGNOTE ---
Patient Problems: Active and Suspected Problems Osteomyelitis (Acute) Necrosis of toe (Acute) DM type 2 (diabetes mellitus, type 2) (Acute) Hyperlipidemia (Acute) Osteomyelitis of right foot (Acute) Gas gangrene (Acute) Type 2 diabetes mellitus with diabetic polyneuropathy (Acute) Cellulitis of right foot (Acute) Abscess of right foot (Acute) Subjective: This patient was seen POD #2 s/p incision and drainage and debridement of all necrotic, nonviable, infected soft tissue and bone of right foot with hallux amputation. Patient is resting comfortably in bed again this morning. She had no adverse events over night. She is feeling better again today. She denies any feelings of nausea, vomiting, fever, or chills. - Physical Exam General: Alert, Oriented x3, Cooperative, No apparent distress Extremities: No Calf Tenderness - negative toya and dobbs signs bilateral, Edema - improving edema to foot, Peripheral Pulses Normal - DP and PT pulses palpable bilateral Skin: Ulcer/ Wound - Ulcer/open surgical site to plantar foot measuring approximately 13 x 6 x 1 cm as well as open hallux amputation site measuring approximately 3 x 4 x 2 cm. There continues to be no purulence appreciated today. There is no malodor noted to the site. This is down to level of muslce/tendon of plantar foot. Bone of first met head exposed to distal open hallux amputation site. There is maceration noted to lateral aspect of the plantar foot site extending up into the 4th webspace. Some of this top layer is sloughing off. Musculoskeletal: No Tenderness to Palpation of Joints or Extremities, Tenderness - Some tenderness with manipulation of surgical site Neurological: - - Epicritic sensation grossly absent to lower extremities Psych/Mental Status: Normal Affect, Appropriate Vital Signs Temp Pulse Resp BP Pulse Ox 98.2 F 64 18 142/64 H 95 09/20/18 02:00 09/20/18 02:00 09/20/18 02:00 09/20/18 02:00 09/20/18 02:00 Oxygen Delivery Method Room Air Weight: 57.7 kg Body Mass Index (BMI) 21.8 Finger Stick Blood Glucose 401 Intake and Output for Last 24 Hours 09/18/18 09/19/18 09/20/18 23:59 23:59 23:59 Intake Total 1000 / 1857 4377 / 4377 781 / 781 Output Total 1250 / 1250 300 / 300 Balance 1000 / 1457 3127 / 3127 481 / 481 Microbiology Past 72 Hours 09/18/18 09:40 Bacteria Detection (PCR) - Final Blood Culture (Wb) - Anticubital Right Staphylococcus epidermidis Blood Culture - Preliminary Staphylococcus epidermidis 09/18/18 Unknown Gram Stain - Final Wound - Other Wound Culture - Preliminary Staphylococcus aureus Gram negative joyce 09/18/18 15:10 Gram Stain - Final Wound Drainage - Aerobic & Anaerobic Swabs Wound Culture - Preliminary Mixed Gram Pos & Gram Neg Org Laboratory Tests Past 24 Hrs 09/19/18 09/19/18 09/20/18 06:14 20:34 05:36 WBC 10.8 RBC 3.42 L Hgb 9.1 L Hct 29.2 L MCV 85.4 MCH 26.6 L MCHC 31.2 L RDW Std Deviation 39.4 RDW Coeff of Nuno 12.7 Plt Count 306 MPV 9.3 Immature Gran % (Auto) 0.700 Neut % (Auto) 81.2 H Lymph % (Auto) 10.8 L [place] % (Auto) 5.4 Eos % (Auto) 1.7 Baso % (Auto) 0.2 Absolute Neuts (auto) 8.8 H Absolute Lymphs (auto) 1.17 Absolute Nucleated RBC 0.00 Nucleated RBC % 0 Sodium 136 Potassium 3.4 L Chloride 103 Carbon Dioxide 29.0 Anion Gap 4 L BUN 8 Creatinine 0.51 L Estim Creat Clear Calc 101.30 Est GFR (MDRD) Af Amer 159 Est GFR (MDRD) Non-Af 131 BUN/Creatinine Ratio 15.7 Glucose 146 H Calcium 8.2 L Vancomycin Trough 8.3 09/20/18 05:36 WBC RBC Hgb Hct MCV MCH MCHC RDW Std Deviation RDW Coeff of Nuno Plt Count MPV Immature Gran % (Auto) Neut % (Auto) Lymph % (Auto) [place] % (Auto) Eos % (Auto) Baso % (Auto) Absolute Neuts (auto) Absolute Lymphs (auto) Absolute Nucleated RBC Nucleated RBC % Sodium 138 Potassium 3.3 L Chloride 104 Carbon Dioxide 27.0 Anion Gap 7 BUN 11 Creatinine 0.56 Estim Creat Clear Calc 92.25 Est GFR (MDRD) Af Amer 141 Est GFR (MDRD) Non-Af 116 BUN/Creatinine Ratio 19.5 Glucose 137 H Calcium 8.3 L Vancomycin Trough POC Glucose 09/20/18 09/19/18 09/19/18 06:26 22:01 16:47 POC Glucose 147 H 388 H 312 H 09/19/18 09/19/18 11:44 06:14 POC Glucose 285 H 164 H Medical Necessity - Tobacco Use Smoking Status: Current every day smoker Assessment/Plan All Active Problems Osteomyelitis (Acute) Necrosis of toe (Acute) DM type 2 (diabetes mellitus, type 2) (Acute) Hyperlipidemia (Acute) Osteomyelitis of right foot (Acute) Gas gangrene (Acute) Type 2 diabetes mellitus with diabetic polyneuropathy (Acute) Cellulitis of right foot (Acute) Abscess of right foot (Acute) POD #2 s/p incision and drainage and debridement of all necrotic, nonviable, infected soft tissue and bone of the right foot with open hallux amputation Osteomyelitis right foot Gas gangrene right foot Abscess right foot DM 2 with neuropathy Ulcer right foot Cellulitis right foot Other comorbidities This patient was carefully examined and evaluated in a bed POD #2 s/p incision and drainage and debridement of all necrotic, nonviable, infected soft tissue and bone of the right foot with open hallux amputation . Vital signs are stable. WBC 10.8. MRSA PCR is positive. Cultures are showing staph aureus and gram negative joyce. Blood cultures showing staph epi. Patient currently on vancomycin and Zosyn. Infectious disease input appreciated. Open surgical sites examined bedside today. No purulence able to be expressed from sites today. No malodor. No necrotic appearing tissue noted today. There is some maceration of lateral plantar surgical site up into the 4th webspace with some loosening of top layer of skin. At this time, the aforementioned open surgical sites were flushed with copious amounts of normal sterile saline. Once complete, the areas were then dressed with saline wet to dry 4x4 gauze, followed by ABDs, Kerlix, and kieran bandage. This irrigation and dressing should be performed twice daily. Patient is to keep foot elevated and offloaded while in bed. Patient is to be non weightbearing to right foot at all times. Will consult Dr. Mccurdy with vascular to evaluate to make sure he does not feel any vascular intervention is warranted. We discussed that patient remains at risk for further surgical intervention, amputation, loss of limb etc. Importance of compliance discussed in detail. She understands this. Podiatry will continue to monitor this patient closely while in house.
--- NOTE | 2018-09-20 08:06 | PCM.PN.HOSP ---
Patient Problems: Active and Suspected Problems Osteomyelitis (Acute) Necrosis of toe (Acute) DM type 2 (diabetes mellitus, type 2) (Acute) Hyperlipidemia (Acute) Osteomyelitis of right foot (Acute) Gas gangrene (Acute) Type 2 diabetes mellitus with diabetic polyneuropathy (Acute) Cellulitis of right foot (Acute) Abscess of right foot (Acute) Subjective: Doing well, states that she has been able to sleep okay. She is in a little bit of pain because her wound was examined today Vitals/I&O's: Vital Signs Temp Pulse Resp BP Pulse Ox 98.2 F 64 18 142/64 H 95 09/20/18 02:00 09/20/18 02:00 09/20/18 02:00 09/20/18 02:00 09/20/18 02:00 Oxygen Delivery Method Room Air Weight: 127 lb 3.307 oz Body Mass Index (BMI) 21.8 Finger Stick Blood Glucose 401 Intake and Output for Last 24 Hours 09/18/18 09/19/18 09/20/18 23:59 23:59 23:59 Intake Total 1000 / 1857 4377 / 4377 781 / 781 Output Total 1250 / 1250 300 / 300 Balance 1000 / 1457 3127 / 3127 481 / 481 General: Alert, Oriented x3, Cooperative, No apparent distress HEENT: Atraumatic, PERRLA, EOMI, Normocephalic Oral: Moist Mucosa Neck: Supple, No JVD Lungs: Clear to auscultation, Normal air movement, No rhonchi, No wheeze, No rales Cardiovascular: Regular rate, Regular Rhythm, Normal S1, Normal S2, No murmurs Abdomen: Soft, Non Tender, Non-Distended, No Hepato-splenomegaly Extremities: No edema, Capillary Refill Less than 3 Seconds, Skin: No rashes, No breakdown, dressing is intact Neurological: Neuro grossly intact, Sensory exam intact to light touch and pain Psych/Mental Status: Normal Affect, Appropriate Microbiology Past 72 Hours 09/18/18 15:10 Wound Drainage - Aerobic & Anaerobic Swabs Gram Stain - Final 09/18/18 15:10 Wound Drainage - Aerobic & Anaerobic Swabs Wound Culture - Preliminary Providencia stuartii Gram negative joyce Staphylococcus aureus 09/18/18 09:40 Blood Culture (Wb) - Anticubital Right Bacteria Detection (PCR) - Final Staphylococcus epidermidis 09/18/18 09:40 Blood Culture (Wb) - Anticubital Right Blood Culture - Preliminary Staphylococcus epidermidis 09/18/18 Unknown Wound - Other Gram Stain - Final 09/18/18 Unknown Wound - Other Wound Culture - Preliminary Staphylococcus aureus Gram negative joyce Laboratory Results 09/19/18 11:44: POC Glucose 285 H 09/19/18 16:47: POC Glucose 312 H 09/19/18 20:34: Vancomycin Trough 8.3 09/19/18 22:01: POC Glucose 388 H 09/20/18 05:36: WBC 10.8, RBC 3.42 L, Hgb 9.1 L, Hct 29.2 L, MCV 85.4, MCH 26.6 L, MCHC 31.2 L, RDW Std Deviation 39.4, RDW Coeff of Nuno 12.7, Plt Count 306, MPV 9.3, Immature Gran % (Auto) 0.700, Neut % (Auto) 81.2 H, Lymph % (Auto) 10.8 L, [place] % (Auto) 5.4, Eos % (Auto) 1.7, Baso % (Auto) 0.2, Absolute Neuts (auto) 8.8 H, Absolute Lymphs (auto) 1.17, Absolute Nucleated RBC 0.00, Nucleated RBC % 0 09/20/18 05:36: Sodium 138, Potassium 3.3 L, Chloride 104, Carbon Dioxide 27.0, Anion Gap 7, BUN 11, Creatinine 0.56, Estim Creat Clear Calc 92.25, Est GFR (MDRD) Af Amer 141, Est GFR (MDRD) Non-Af 116, BUN/Creatinine Ratio 19.5, Glucose 137 H, Calcium 8.3 L 09/20/18 06:26: POC Glucose 147 H Current Medications Hydrocodone Bitart/Acetaminophen ([place] 5mg-325mg) 1 - 2 tablet PO Q6H PRN PRN PRN Reason: Moderate-severe pain Last Admin: 09/19/18 19:48 Dose: 2 tablet Documented by: Atorvastatin Calcium (Lipitor) 40 mg PO QHS [facility] Last Admin: 09/19/18 22:05 Dose: 40 mg Documented by: Cholecalciferol (Vitamin D) 1,000 unit PO DAILY [facility] Last Admin: 09/19/18 10:13 Dose: 1,000 unit Documented by: Dextrose (D50w Syringe) 0 gm IV X1 PRN; Protocol PRN Reason: Hypoglycemia Glucagon () 1 mg IM .X1 PRN PRN Reason: Hypoglycemia Sodium Chloride () 1,000 mls @ 100 mls/hr IV .Q10H [facility] Last Admin: 09/20/18 06:18 Dose: 100 mls/hr Documented by: Piperacillin Sod/Tazobactam (Sod 3.375 gm/ Sodium Chloride) 50 mls @ 12.5 mls/hr IV Q8 [facility] Last Admin: 09/20/18 05:19 Dose: 12.5 mls/hr Documented by: Vancomycin IV Pharmacy to Dose (1 ea/ Sodium Chloride) 500 mls @ 250 mls/hr IV X1 PRN; Protocol PRN Reason: Rx to Dose Clindamycin Phosphate 600 mg/ (Dextrose) 54 mls @ 100 mls/hr IV Q8 [facility] Last Admin: 09/20/18 05:19 Dose: 100 mls/hr Documented by: Vancomycin HCl 1,250 mg/ (Sodium Chloride) 275 mls @ 167 mls/hr IV Q8H [facility] Last Admin: 09/20/18 06:18 Dose: 167 mls/hr Documented by: Insulin Glargine (Lantus (Bk)) 10 units SC QHS [facility] Last Admin: 09/19/18 22:03 Dose: 10 u Documented by: Insulin Human Lispro (Humalog Kwikpen ([facility])) 0 unit SC ACHS [facility]; Protocol Last Admin: 09/20/18 06:29 Dose: Not Given Documented by: Lisinopril (Zestril) 2.5 mg PO DAILY [facility] Last Admin: 09/19/18 10:13 Dose: 2.5 mg Documented by: Nutritional Formula (Lactose Free) (Glucerna Shake) 120 ml PO 4X/DAY [facility] Last Admin: 09/19/18 22:03 Dose: 120 ml Documented by: Ondansetron HCl (Zofran) 4 mg IV Q8H PRN PRN PRN Reason: NAUSEA/VOMITING Last Admin: 09/19/18 11:50 Dose: 4 mg Documented by: Senna/Docusate Sodium (Senokot-S, Kiersten-Colace) 2 tablet PO DAILY PRN PRN PRN Reason: CONSTIPATION Sodium Chloride () 10 - 40 ml IV UD PRN PRN Reason: SALINE FLUSH Last Admin: 09/19/18 11:50 Dose: 10 ml Documented by: Medical Necessity - Tobacco Use Smoking Status: Current every day smoker Assessment/Plan All Active Problems Osteomyelitis (Acute) Necrosis of toe (Acute) DM type 2 (diabetes mellitus, type 2) (Acute) Hyperlipidemia (Acute) Osteomyelitis of right foot (Acute) Gas gangrene (Acute) Type 2 diabetes mellitus with diabetic polyneuropathy (Acute) Cellulitis of right foot (Acute) Abscess of right foot (Acute) 1. Right toe necrosis with likely osteomyelitis postop day 2 from right great toe amputation -We will continue with Zosyn, clindamycin, and vancomycin -Appreciate ID assistance -Consult to the wound care nurse for assistance in management after surgery -IV fluids at 100, can DC once taking adequate p.o. -Consult to vascular for evaluation and if any intervention is necessary -Leukocytosis has resolved 2. DM 2 -We will hold all of her oral hypoglycemics -We will adjust her insulin as necessary -This is likely the cause of her right toe osteomyelitis and necrosis 3. Tobacco abuse -Discussed cessation -Provide a nicotine patch if necessary 4. HTN/HLD/history of CVA -Stable -Continue with home medications and will monitor -Continue with her Plavix after surgery DVT: SCDs Code Visit Inpatient E&M: 33059 Subs Hosp L2
[2018-09-20 09:33] VITALS: BP 114/49; PULSE 77; RESP 18; TEMP 37.2; O2SAT 95
[2018-09-20] MEDS: Lisinopril 2.5 MG Tablet PO (09:41)
[2018-09-20] MEDS: HYDROcodone Bitartrate/Apap 5/325 Tablet PO (09:41)
[2018-09-20] MEDS: Glucerna Shake 120 ML LIQUID PO ×3 (11:16→21:18)
--- NOTE | 2018-09-20 11:25 | PCM.CONS.GEN ---
Problem List (1) Osteomyelitis of right foot Status: Acute Reason for Consult Date of Consultation: 09/20/18 Reason for Consultation: Concern for PAD after toe amp History of Present Illness: The patient is a 58 year old F that had developed a blister on her right great toe this was getting debrided as best I can determine. Then became infected and had some osteomyelitis and some gas gangrene into that area. She had a toe amp and debridement. Some concern for marginal tissue around this and vascular surgery asked to evaluate for perfusion. She states at [place] she did have what sounds like ABIs and they told her those were normal. Although I do not have those studies. Her dressings intact in the right foot and I did not take down. She has a normal palpable popliteal pulse on the right and a slightly decreased dorsalis pedis pulse on the left. I reviewed her CTA and she had a little bit more tibial occlusive disease on the left. Which fits with her slightly decreased pulse. The right her common femoral, profunda, SFA, popliteal were all widely patent. Some plaque noted but no stenosis noted. Some mild plaque in the distal popliteal but appears good flow. Her anterior tibial artery is widely patent all the way into the foot and through the dorsalis pedis. It is the largest caliber of her tibial vessels in either leg. She has some moderate tibial peroneal trunk disease but adequate flow through the peroneal into its bifurcation. Posterior tibial artery is smaller throughout and appears occluded distally. But she has very good flow through the DP and into the arch. Should have adequate flow to be able to heal her toe. No coronary history. Patient reports having a stroke around 2009 or so and is also the time she was diagnosed to be diabetic. Patient smokes but has trying to quit with this admission. Hypertension on medications. She has been diabetic since around 2009. Hyperlipidemia on a statin. No significant PAD symptoms prior. [] Past Medical History Past Medical History (Chronic Problems): Chronic Problems Hypertension (Chronic) Allergies No Known Allergies Allergy (Verified 09/18/18 08:46) Home Medications: Ambulatory Orders Medication Instructions Recorded Aspirin [Aspirin, Baby] 81 mg PO DAILY@0800 12/27/15 Smz/Tmp Ds [Bactrim Ds] 1 tablet PO BID #20 tablet 12/28/15 Atorvastatin Calcium 40 mg PO DAILY 09/18/18 Cholecalciferol (VIT D3) [Vitamin 1,000 unit PO DAILY 09/18/18 D] Clopidogrel Bisulfate [Clopidogrel] 75 mg PO DAILY 09/18/18 Glimepiride 4 mg PO DAILY 09/18/18 Lisinopril 2.5 mg PO DAILY 09/18/18 Pioglitazone HCl 09/18/18 metFORMIN HCl [Glucophage] 1,000 mg PO BIDCM 09/18/18 Surgical History: no surgical history Lives: With Family Smoking Status: Current every day smoker Alcohol: None Drugs: None - *Family History Maternal History Items: Cancer Paternal History Items: Heart Disease Review of Systems Constitutional: Denies: Chills, Fever, Weight Change HEENT: Denies: Head Aches, Sinus Congestion, Sinus Drainage Cardiovascular: Denies: Chest Pain, Palpitations Respiratory: Denies: Cough, Shortness of breath at rest, Sputum production Gastrointestinal: Denies: Abdominal Pain, Nausea, Vomiting Genitourinary: Denies: Dysuria Musculoskeletal: Denies: Joint Pain, Joint Tenderness Skin: Reports: Wounds - Right foot Patient Problems: Active and Suspected Problems Osteomyelitis (Acute) Necrosis of toe (Acute) DM type 2 (diabetes mellitus, type 2) (Acute) Hyperlipidemia (Acute) Osteomyelitis of right foot (Acute) Gas gangrene (Acute) Type 2 diabetes mellitus with diabetic polyneuropathy (Acute) Cellulitis of right foot (Acute) Abscess of right foot (Acute) - Physical Exam General: Alert, Oriented x3 HEENT: Atraumatic, PERRLA, Normocephalic Oral: Moist Mucosa Neck: Supple, No JVD Lungs: Clear to auscultation Cardiovascular: Regular rate Abdomen: Soft, Non Tender Extremities: No edema, - - Dressing intact right foot. Palpable radial pulses. Normal popliteal pulses. Slightly diminished left dorsalis pedis, but is palpable Vital Signs Temp Pulse Resp BP Pulse Ox 98.9 F 77 18 114/49 L 95 09/20/18 09:33 09/20/18 09:33 09/20/18 09:33 09/20/18 09:33 09/20/18 09:33 Oxygen Delivery Method Room Air Weight: 127 lb 3.307 oz Body Mass Index (BMI) 21.8 Finger Stick Blood Glucose 401 Intake and Output for Last 24 Hours 09/18/18 09/19/18 09/20/18 23:59 23:59 23:59 Intake Total 1000 / 1857 4377 / 4377 781 / 781 Output Total 1250 / 1250 300 / 300 Balance 1000 / 1457 3127 / 3127 481 / 481 Microbiology Past 72 Hours 09/18/18 Unknown Gram Stain - Final Wound - Other Wound Culture - Preliminary Staphylococcus aureus Gram negative joyce Gram negative joyce#2 09/18/18 09:35 Blood Culture - Preliminary Blood Culture (Wb) - Anticubital Left No growth in 48 hours. 09/18/18 15:10 Gram Stain - Final Wound Drainage - Aerobic & Anaerobic Swabs Wound Culture - Preliminary Providencia stuartii Gram negative joyce Staphylococcus aureus 09/18/18 09:40 Bacteria Detection (PCR) - Final Blood Culture (Wb) - Anticubital Right Staphylococcus epidermidis Blood Culture - Preliminary Staphylococcus epidermidis Laboratory Tests Past 24 Hrs 09/19/18 09/20/18 09/20/18 20:34 05:36 05:36 WBC 10.8 RBC 3.42 L Hgb 9.1 L Hct 29.2 L MCV 85.4 MCH 26.6 L MCHC 31.2 L RDW Std Deviation 39.4 RDW Coeff of Nuno 12.7 Plt Count 306 MPV 9.3 Immature Gran % (Auto) 0.700 Neut % (Auto) 81.2 H Lymph % (Auto) 10.8 L [place] % (Auto) 5.4 Eos % (Auto) 1.7 Baso % (Auto) 0.2 Absolute Neuts (auto) 8.8 H Absolute Lymphs (auto) 1.17 Absolute Nucleated RBC 0.00 Nucleated RBC % 0 Sodium 138 Potassium 3.3 L Chloride 104 Carbon Dioxide 27.0 Anion Gap 7 BUN 11 Creatinine 0.56 Estim Creat Clear Calc 92.25 Est GFR (MDRD) Af Amer 141 Est GFR (MDRD) Non-Af 116 BUN/Creatinine Ratio 19.5 Glucose 137 H Calcium 8.3 L Vancomycin Trough 8.3 POC Glucose 09/20/18 09/19/18 09/19/18 06:26 22:01 16:47 POC Glucose 147 H 388 H 312 H 09/19/18 11:44 POC Glucose 285 H Assessment/Plan All Active Problems Osteomyelitis (Acute) Necrosis of toe (Acute) DM type 2 (diabetes mellitus, type 2) (Acute) Hyperlipidemia (Acute) Osteomyelitis of right foot (Acute) Gas gangrene (Acute) Type 2 diabetes mellitus with diabetic polyneuropathy (Acute) Cellulitis of right foot (Acute) Abscess of right foot (Acute) PAD. 1. Based on what she reports from the outside hospital studies appears good flow. I would like to get a copy of those ABIs so we can review. But my review of the CTA looks like she should have more than enough flow through the anterior tibial artery filling into the foot to be able to heal this. If the area around this worsens and not improving with antibiotics and after the drainage we would consider doing an angiogram to a closer look at the tibials but I think we should have enough flow at this point. We will continue to follow as needed thank you for the consult
[2018-09-20 11:31] LABS: Bedside Glucose 263 mg/dL (70-110)
[2018-09-20] MEDS: Insulin Lispro 100 UNIT/ML INSULN.PEN SC ×5 (11:46→21:23)
--- NOTE | 2018-09-20 13:55 | PCM.PN.ID ---
Patient Problems: Active and Suspected Problems Osteomyelitis (Acute) Necrosis of toe (Acute) DM type 2 (diabetes mellitus, type 2) (Acute) Hyperlipidemia (Acute) Osteomyelitis of right foot (Acute) Gas gangrene (Acute) Type 2 diabetes mellitus with diabetic polyneuropathy (Acute) Cellulitis of right foot (Acute) Abscess of right foot (Acute) Subjective: Feeling ok, nausea resolved, no fever, pain controlled - Physical Exam General: Alert, Cooperative, No apparent distress Lungs: Clear to auscultation, Normal air movement Cardiovascular: Regular rate, Regular Rhythm Abdomen: Soft, Non Tender, Non-Distended Skin: Ulcer/ Wound - foot wrapped, reviewed photo Vital Signs Temp Pulse Resp BP Pulse Ox 98.9 F 77 18 114/49 L 95 09/20/18 09:33 09/20/18 09:33 09/20/18 09:33 09/20/18 09:33 09/20/18 09:33 Oxygen Delivery Method Room Air Weight: 57.7 kg Body Mass Index (BMI) 21.8 Finger Stick Blood Glucose 401 Intake and Output for Last 24 Hours 09/18/18 09/19/18 09/20/18 23:59 23:59 23:59 Intake Total 1000 / 1857 4377 / 4377 781 / 781 Output Total 1250 / 1250 300 / 300 Balance 1000 / 1457 3127 / 3127 481 / 481 Microbiology Past 72 Hours 09/18/18 09:40 Bacteria Detection (PCR) - Final Blood Culture (Wb) - Anticubital Right Staphylococcus epidermidis Blood Culture - Preliminary Staphylococcus epidermidis 09/18/18 Unknown Gram Stain - Final Wound - Other Wound Culture - Preliminary Staphylococcus aureus Gram negative joyce Gram negative joyce#2 09/18/18 09:35 Blood Culture - Preliminary Blood Culture (Wb) - Anticubital Left No growth in 48 hours. 09/18/18 15:10 Gram Stain - Final Wound Drainage - Aerobic & Anaerobic Swabs Wound Culture - Preliminary Providencia stuartii Gram negative joyce Staphylococcus aureus Laboratory Tests Past 24 Hrs 09/19/18 09/20/18 09/20/18 20:34 05:36 05:36 WBC 10.8 RBC 3.42 L Hgb 9.1 L Hct 29.2 L MCV 85.4 MCH 26.6 L MCHC 31.2 L RDW Std Deviation 39.4 RDW Coeff of Nuno 12.7 Plt Count 306 MPV 9.3 Immature Gran % (Auto) 0.700 Neut % (Auto) 81.2 H Lymph % (Auto) 10.8 L [place] % (Auto) 5.4 Eos % (Auto) 1.7 Baso % (Auto) 0.2 Absolute Neuts (auto) 8.8 H Absolute Lymphs (auto) 1.17 Absolute Nucleated RBC 0.00 Nucleated RBC % 0 Sodium 138 Potassium 3.3 L Chloride 104 Carbon Dioxide 27.0 Anion Gap 7 BUN 11 Creatinine 0.56 Estim Creat Clear Calc 92.25 Est GFR (MDRD) Af Amer 141 Est GFR (MDRD) Non-Af 116 BUN/Creatinine Ratio 19.5 Glucose 137 H Calcium 8.3 L Vancomycin Trough 8.3 POC Glucose 09/20/18 09/20/18 09/19/18 11:22 06:26 22:01 POC Glucose 263 H 147 H 388 H 09/19/18 16:47 POC Glucose 312 H Medical Necessity - Tobacco Use Smoking Status: Current every day smoker Route of nutrition/ use of supplements: [] Nutritional Intake: [] IV Site: [] Robles Catheter: [] - Assessment/Plan Antibiotics: [] Assessment/Plan: [] Active and Suspected Problems Osteomyelitis (Acute) Necrosis of toe (Acute) DM type 2 (diabetes mellitus, type 2) (Acute) Hyperlipidemia (Acute) Osteomyelitis of right foot (Acute) Gas gangrene (Acute) Type 2 diabetes mellitus with diabetic polyneuropathy (Acute) Cellulitis of right foot (Acute) Abscess of right foot (Acute) R foot osteo and gas gangrene with DM neuropathy - taken to [place] 09/18 for I&D by Dr. Blanco. Surg cx with providencia, GNR, staph. PCR shows MRSA. On vanc/zosyn and added clinda for anti-toxin effect given gas and necrosis. Per podiatry wounds were doing well today. Will follow
[2018-09-20 14:23] VITALS: BP 131/67; PULSE 70; RESP 18; TEMP 37.3; O2SAT 93
--- NOTE | 2018-09-20 14:56 | CASEMGMT ---
Social Work Note SW and RM CM updated by RN that pt and pt's daughter Rosetta is requesting to speak to this worker and RN CM regarding discharge plans. RN MAXIMUS La and this worker in to speak with pt and Rosetta. Pt and Rosetta educated on discharge options including home with HHC vs. SNF. Pt and Rosetta both agreeable to SNF at this time and choose [facility]. SW explained referral process and that pt will need pre-cert. Pt and Rosetta state understanding. HAILE placed a call to Alyssa at [facility] and left message providing referral. HAILE faxed referral to [facility]. Plan: [facility] pending acceptance and pre-cert Maddie Mcneill PASTORAL ASSISTANT, WELDER [employer]ED [employer]
[2018-09-20 16:46] LABS: Bedside Glucose 235 mg/dL (70-110)
[2018-09-20 20:42] VITALS: BP 148/72; PULSE 71; RESP 16; TEMP 37.1; O2SAT 93
[2018-09-20] MEDS: Atorvastatin Calcium 40 MG Tablet PO (21:18)
[2018-09-20 21:56] LABS: Bedside Glucose 179 mg/dL (70-110)
[2018-09-20 22:15] LABS: Vancomycin, Trough Level 25.1 ug/mL (5.0-15.0)
--- NOTE | 2018-09-20 22:50 | PCM.RX.CS ---
Consult Pharmacy has been consulted to manage selected antiobiotic: Vancomycin Type of Consult: Follow-up Suspected Infection: Other Prior Doses of Antibiotics Received/Current Regimen: Medications Vancomycin HCl 1,250 mg/ (Sodium Chloride) 275 mls @ 167 mls/hr IV Q8H [facility] Last Admin: 09/20/18 22:37 Dose: 167 mls/hr Documented by: Labs: Sodium 138 mmol/L (136-145) 09/20/18 05:36 Potassium 3.3 mmol/L (3.5-5.1) L 09/20/18 05:36 Chloride 104 mmol/L (98-107) 09/20/18 05:36 Carbon Dioxide 27.0 mmol/L (21.0-32.0) 09/20/18 05:36 7 (5-15) 09/20/18 05:36 BUN 11 mg/dL (7-18) 09/20/18 05:36 0.56 mg/dL (0.55-1.02) 09/20/18 05:36 Est GFR (MDRD) Af Amer 141 mL/min (>60) 09/20/18 05:36 Est GFR (MDRD) Non-Af 116 mL/min (>60) 09/20/18 05:36 19.5 RATIO (10-20) 09/20/18 05:36 Glucose 137 mg/dL (74-106) H 09/20/18 05:36 Vancomycin Trough 25.1 ug/mL (5.0-15.0) H 09/20/18 21:30 Microbiology: Microbiology 09/18/18 09:40 Blood Culture (Wb) - Anticubital Right Bacteria Detection (PCR) - Final Staphylococcus epidermidis 09/18/18 09:40 Blood Culture (Wb) - Anticubital Right Blood Culture - Preliminary Staphylococcus epidermidis 09/18/18 Unknown Wound - Other Gram Stain - Final 09/18/18 Unknown Wound - Other Wound Culture - Preliminary Staphylococcus aureus Gram negative joyce Gram negative joyce#2 09/18/18 09:35 Blood Culture (Wb) - Anticubital Left Blood Culture - Preliminary No growth in 48 hours. 09/18/18 15:10 Wound Drainage - Aerobic & Anaerobic Swabs Gram Stain - Final 09/18/18 15:10 Wound Drainage - Aerobic & Anaerobic Swabs Wound Culture - Preliminary Providencia stuartii Gram negative joyce Staphylococcus aureus Weight used for dosin kg Goal Trough: 15-20 mcg/mL Pharmacy Plan for Drug Dosing: Pharmacy Service will continue to monitor and adjust dosing as required. Follow-Up Labs: Trough Vancomycin - Random 09/21 @ 2259
[2018-09-21 02:41] VITALS: BP 138/63; PULSE 67; RESP 16; TEMP 37.2; O2SAT 93
[2018-09-21] MEDS: HYDROcodone Bitartrate/Apap 5/325 Tablet PO (02:47)
[2018-09-21 06:10] LABS: Anion Gap 7 (5-15); BUN 9 mg/dL (7-18); BUN/Creat Ratio 12.7 RATIO (10-20); Calcium,Total 8.4 mg/dL (8.5-10.1); Chloride 105 mmol/L (98-107); Creatinine, Serum 0.71 mg/dL (0.55-1.02); EST Glomerular Filtration Rate 89 mL/min (>60); Est Glom Filt Rate - Afr Amer 108 mL/min (>60); Estimated Creatinine Clearance 72.76 ml/min; Glucose 195 mg/dL (74-106); Potassium 3.9 mmol/L (3.5-5.1); Sodium Level 138 mmol/L (136-145)
--- NOTE | 2018-09-21 07:07 | PCM.PROGNOTE ---
Patient Problems: Active and Suspected Problems Osteomyelitis (Acute) Necrosis of toe (Acute) DM type 2 (diabetes mellitus, type 2) (Acute) Hyperlipidemia (Acute) Osteomyelitis of right foot (Acute) Gas gangrene (Acute) Type 2 diabetes mellitus with diabetic polyneuropathy (Acute) Cellulitis of right foot (Acute) Abscess of right foot (Acute) Subjective: This patient was seen POD #3 s/p incision and drainage and debridement of all necrotic, nonviable, infected soft tissue and bone of right foot with hallux amputation. Patient is resting comfortably in bed again this morning. She had no adverse events over night. States she continues to feel well and says pain is under control. She denies any feelings of nausea, vomiting, fever, or chills. - Physical Exam General: Alert, Oriented x3, Cooperative, No apparent distress Extremities: No Calf Tenderness - Negative Luciano and Brown signs bilateral, Edema - Very mild edema to the right foot, Peripheral Pulses Normal - DP and PT pulses palpable bilateral Skin: Ulcer/ Wound - Ulcer/open surgical site to plantar foot measuring approximately as well as open hallux amputation site noted. There continues to be no purulence appreciated today. There is no malodor noted to the site. This is down to level of muslce/tendon of plantar foot. Bone of first met head exposed to distal open hallux amputation site. There is maceration noted to lateral aspect of the plantar foot site extending up into the 4th webspace. More of this loosened/macerated skin sloughed off today. Some very minor duskiness noted distally. Musculoskeletal: No Tenderness to Palpation of Joints or Extremities, - - Some tenderness with manipulation of surgical site Neurological: - - Epicritic sensation grossly absent to lower extremities Psych/Mental Status: Normal Affect, Appropriate Vital Signs Temp Pulse Resp BP Pulse Ox 99.0 F 67 16 138/63 H 93 09/21/18 02:41 09/21/18 02:41 09/21/18 02:41 09/21/18 02:41 09/21/18 02:41 Oxygen Delivery Method Room Air Weight: 57.7 kg Body Mass Index (BMI) 21.8 Finger Stick Blood Glucose 401 Intake and Output for Last 24 Hours 09/19/18 09/20/18 09/21/18 23:59 23:59 23:59 Intake Total 4377 / 4377 3321 / 3321 1551 / 1551 Output Total 1250 / 1250 800 / 800 1100 / 1100 Balance 3127 / 3127 2521 / 2521 451 / 451 Microbiology Past 72 Hours 09/18/18 09:40 Bacteria Detection (PCR) - Final Blood Culture (Wb) - Anticubital Right Staphylococcus epidermidis Blood Culture - Preliminary Staphylococcus epidermidis 09/18/18 Unknown Gram Stain - Final Wound - Other Wound Culture - Preliminary Staphylococcus aureus Gram negative joyce Gram negative joyce#2 09/18/18 09:35 Blood Culture - Preliminary Blood Culture (Wb) - Anticubital Left No growth in 48 hours. 09/18/18 15:10 Gram Stain - Final Wound Drainage - Aerobic & Anaerobic Swabs Wound Culture - Preliminary Providencia stuartii Gram negative joyce Staphylococcus aureus Laboratory Tests Past 24 Hrs 09/20/18 09/21/18 21:30 05:36 Sodium 138 Potassium 3.9 Chloride 105 Carbon Dioxide 26.0 Anion Gap 7 BUN 9 Creatinine 0.71 Estim Creat Clear Calc 72.76 Est GFR (MDRD) Af Amer 108 Est GFR (MDRD) Non-Af 89 BUN/Creatinine Ratio 12.7 Glucose 195 H Calcium 8.4 L Vancomycin Trough 25.1 H POC Glucose 09/20/18 09/20/18 09/20/18 21:22 16:31 11:22 POC Glucose 179 H 235 H 263 H Medical Necessity - Tobacco Use Smoking Status: Current every day smoker Assessment/Plan All Active Problems Osteomyelitis (Acute) Necrosis of toe (Acute) DM type 2 (diabetes mellitus, type 2) (Acute) Hyperlipidemia (Acute) Osteomyelitis of right foot (Acute) Gas gangrene (Acute) Type 2 diabetes mellitus with diabetic polyneuropathy (Acute) Cellulitis of right foot (Acute) Abscess of right foot (Acute) POD #3 s/p incision and drainage and debridement of all necrotic, nonviable, infected soft tissue and bone of the right foot with open hallux amputation Osteomyelitis right foot Gas gangrene right foot Abscess right foot DM 2 with neuropathy Ulcer right foot Cellulitis right foot Other comorbidities This patient was carefully examined and evaluated in a bed POD #3 s/p incision and drainage and debridement of all necrotic, nonviable, infected soft tissue and bone of the right foot with open hallux amputation . Vital signs remain stable. MRSA PCR is positive. Cultures are showing staph aureus and gram negative joyce. Blood cultures showing staph epi which lab believes to be skin contamination. Patient currently on antibiotics per infectious disease. Open surgical sites examined bedside again today. No purulence able to be expressed from sites today. No malodor. No necrotic appearing tissue noted today. Some more of the maceration along the lateral edge of plantar ulcer site sloughed off. Very small area of minor duskiness to the distal lateral foot. At this time, the aforementioned open surgical sites were flushed with copious amounts of normal sterile saline. Once complete, the areas were then dressed with saline wet to dry 4x4 gauze, followed by ABDs, Kerlix, and kieran bandage. This irrigation and dressing should be performed twice daily. Patient is to keep foot elevated and offloaded while in bed. Patient is to be non weightbearing to right foot at all times. Dr. Mccurdy with vascular surgery evaluated this patient yesterday as well. At this time, he feels the patient should have sufficient flow. He relates that should her condition worsen that he will consider doing an angiogram. I discussed again with the patient that there is high likelihood of needing a staged procedure down the road. We discussed that patient remains at risk for further surgical intervention, amputation, loss of limb etc. she relates that she understands all of this. Importance of compliance discussed in detail. She understands this. Patient will be transferred to SNF upon discharge and will follow up with me at the wound healing center next week. Podiatry will continue to monitor this patient closely while in house.
--- NOTE | 2018-09-21 08:01 | PN_ITS ---
Patient Problems: Active and Suspected Problems Osteomyelitis (Acute) Necrosis of toe (Acute) DM type 2 (diabetes mellitus, type 2) (Acute) Hyperlipidemia (Acute) Osteomyelitis of right foot (Acute) Gas gangrene (Acute) Type 2 diabetes mellitus with diabetic polyneuropathy (Acute) Cellulitis of right foot (Acute) Abscess of right foot (Acute) Subjective: Well, has a little bit of pain in her foot after the manipulation this morning. No acute events overnight Vitals/I&O's: Vital Signs Temp Pulse Resp BP Pulse Ox 99.0 F 67 16 138/63 H 93 09/21/18 02:41 09/21/18 02:41 09/21/18 02:41 09/21/18 02:41 09/21/18 02:41 Oxygen Delivery Method Room Air Weight: 127 lb 3.307 oz Body Mass Index (BMI) 21.8 Finger Stick Blood Glucose 401 Intake and Output for Last 24 Hours 09/19/18 09/20/18 09/21/18 23:59 23:59 23:59 Intake Total 4377 / 4377 3321 / 3321 1551 / 1551 Output Total 1250 / 1250 800 / 800 1100 / 1100 Balance 3127 / 3127 2521 / 2521 451 / 451 General: Alert, Oriented x3, Cooperative, No apparent distress HEENT: Atraumatic, PERRLA, EOMI, Normocephalic Oral: Moist Mucosa Neck: Supple, No JVD Lungs: Clear to auscultation, Normal air movement, No rhonchi, No wheeze, No rales Cardiovascular: Regular rate, Regular Rhythm, Normal S1, Normal S2, No murmurs Abdomen: Soft, Non Tender, Non-Distended, No Hepato-splenomegaly Extremities: No edema, Capillary Refill Less than 3 Seconds, Skin: No rashes, No breakdown, dressing is intact Neurological: Neuro grossly intact, Sensory exam intact to light touch and pain Psych/Mental Status: Normal Affect, Appropriate Microbiology Past 72 Hours 09/18/18 15:10 Wound Drainage - Aerobic & Anaerobic Swabs Gram Stain - Final 09/18/18 15:10 Wound Drainage - Aerobic & Anaerobic Swabs Wound Culture - Preliminary Providencia stuartii Proteus mirabilis Staphylococcus aureus 09/18/18 09:40 Blood Culture (Wb) - Anticubital Right Bacteria Detection (PCR) - Final Staphylococcus epidermidis 09/18/18 09:40 Blood Culture (Wb) - Anticubital Right Blood Culture - Preliminary Staphylococcus epidermidis 09/18/18 Unknown Wound - Other Gram Stain - Final 09/18/18 Unknown Wound - Other Wound Culture - Preliminary Staphylococcus aureus Gram negative joyce Gram negative joyce#2 09/18/18 09:35 Blood Culture (Wb) - Anticubital Left Blood Culture - Prel iminary No growth in 48 hours. Laboratory Results 09/20/18 11:22: POC Glucose 263 H 09/20/18 16:31: POC Glucose 235 H 09/20/18 21:22: POC Glucose 179 H 09/20/18 21:30: Vancomycin Trough 25.1 H 09/21/18 05:36: Sodium 138, Potassium 3.9, Chloride 105, Carbon Dioxide 26.0, Anion Gap 7, BUN 9, Creatinine 0.71, Estim Creat Clear Calc 72.76, Est GFR (MDRD) Af Amer 108, Est GFR (MDRD) Non-Af 89, BUN/Creatinine Ratio 12.7, Glucose 195 H, Calcium 8.4 L Current Medications Hydrocodone Bitart/Acetaminophen ([place] 5mg-325mg) 1 - 2 tablet PO Q6H PRN PRN PRN Reason: Moderate-severe pain Last Admin: 09/21/18 02:47 Dose: 1 tablet Documented by: Atorvastatin Calcium (Lipitor) 40 mg PO QHS [facility] Last Admin: 09/20/18 21:18 Dose: 40 mg Documented by: Cholecalciferol (Vitamin D) 1,000 unit PO DAILY [facility] Last Admin: 09/20/18 09:42 Dose: 1,000 unit Documented by: Dextrose (D50w Syringe) 0 gm IV X1 PRN; Protocol PRN Reason: Hypoglycemia Glucagon () 1 mg IM .X1 PRN PRN Reason: Hypoglycemia Sodium Chloride () 1,000 mls @ 100 mls/hr IV .Q10H [facility] Last Admin: 09/21/18 02:49 Dose: Not Given Documented by: Piperacillin Sod/Tazobactam (Sod 3.375 gm/ Sodium Chloride) 50 mls @ 12.5 mls/hr IV Q8 [facility] Last Admin: 09/21/18 06:09 Dose: 12.5 mls/hr Documented by: Vancomycin IV Pharmacy to Dose (1 ea/ Sodium Chloride) 500 mls @ 250 mls/hr IV X1 PRN; Protocol PRN Reason: Rx to Dose Clindamycin Phosphate 600 mg/ (Dextrose) 54 mls @ 100 mls/hr IV Q8 [facility] Last Admin: 09/21/18 06:09 Dose: 100 mls/hr Documented by: Insulin Glargine (Lantus (Bkc)) 15 units SC QHS [facility] Last Admin: 09/20/18 21:24 Dose: 15 u Documented by: Insulin Human Lispro (Humalog Kwikpen (Bkc)) 0 unit SC ACHS [facility]; Protocol Last Admin: 09/20/18 21:23 Dose: 2 units Documented by: Insulin Human Lispro (Humalog Kwikpen (Bkc)) 5 unit SC TIDAC [facility] Last Admin: 09/20/18 16:36 Dose: 5 units Documented by: Lisinopril (Zestril) 2.5 mg PO DAILY [facility] Last Admin: 09/20/18 09:41 Dose: 2.5 mg Documented by: Nutritional Formula (Lactose Free) (Glucerna Shake) 120 ml PO 4X/DAY [facility] Last Admin: 09/20/18 21:18 Dose: 120 ml Documented by: Ondansetron HCl (Zofran) 4 mg IV Q8H PRN PRN PRN Reason: NAUSEA/VOMITING Last Admin: 09/19/18 11:50 Dose: 4 mg Documented by: Senna/Docusate Sodium (Senokot-S, Kiersten-Colace) 2 tablet PO DAILY PRN PRN PRN Reason: CONSTIPATION Sodium Chloride () 10 - 40 ml IV UD PRN PRN Reason: SALINE FLUSH Last Admin: 09/19/18 11:50 Dose: 10 ml Documented by: Medical Necessity - Tobacco Use Smoking Status: Current every day smoker Assessment/Plan All Active Problems Osteomyelitis (Acute) Necrosis of toe (Acute) DM type 2 (diabetes mellitus, type 2) (Acute) Hyperlipidemia (Acute) Osteomyelitis of right foot (Acute) Gas gangrene (Acute) Type 2 diabetes mellitus with diabetic polyneuropathy (Acute) Cellulitis of right foot (Acute) Abscess of right foot (Acute) 1. Right toe necrosis with likely osteomyelitis postop day 2 from right great toe amputation -We will continue with Zosyn, clindamycin, and vancomycin -Appreciate ID assistance -Consult to the wound care nurse for assistance in management after surgery -Appreciate vascular surgery recommendations -Leukocytosis has resolved -We will plan for discharge today to the snf if approval 2. DM 2 -We will hold all of her oral hypoglycemics -We will adjust her insulin as necessary -This is likely the cause of her right toe osteomyelitis and necrosis 3. Tobacco abuse -Discussed cessation -Provide a nicotine patch if necessary 4. HTN/HLD/history of CVA -Stable -Continue with home medications and will monitor -Continue with her Plavix after surgery DVT: SCDs Code Visit Inpatient E&M: 00241 Subs Hosp L2
[2018-09-21] MEDS: Insulin Lispro 100 UNIT/ML INSULN.PEN SC ×6 (08:06→16:55)
[2018-09-21] MEDS: Glucerna Shake 120 ML LIQUID PO ×2 (08:10→14:02)
[2018-09-21] MEDS: Lisinopril 2.5 MG Tablet PO (08:11)
[2018-09-21 08:16] VITALS: BP 141/73; PULSE 67; RESP 18; TEMP 36.9; O2SAT 96
--- NOTE | 2018-09-21 08:57 | CASEMGMT ---
Addendum entered by Maddie Mcneill 09/21/18 13:26: Updated clinicals faxed to [facility]. Addendum entered by Maddie Mcneill 09/21/18 10:03: HAILE spoke with Alyssa at [facility] who states they are able to accept pt and will submit for pre-cert. HAILE informed Alyssa that pt will be getting PICC placed today and likely discharge tomorrow. Alyssa states understanding. Addendum entered by Maddie Mcneill 09/21/18 09:57: HAILE faxed antibiotics scripts to [facility]. Original Note: Social Work Note SW received call from Alyssa at [facility] stating she only received 11 pages of referral yesterday. HAILE re faxed referral to [facility]. 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
--- NOTE | 2018-09-21 10:53 | PN.ID_ITS ---
Patient Problems: Active and Suspected Problems Osteomyelitis (Acute) Necrosis of toe (Acute) DM type 2 (diabetes mellitus, type 2) (Acute) Hyperlipidemia (Acute) Osteomyelitis of right foot (Acute) Gas gangrene (Acute) Type 2 diabetes mellitus with diabetic polyneuropathy (Acute) Cellulitis of right foot (Acute) Abscess of right foot (Acute) Subjective: Feeling ok, no fever, no n/v/d. - Physical Exam General: Alert, Cooperative, No apparent distress Lungs: Clear to auscultation, Normal air movement Cardiovascular: Regular rate, Regular Rhythm Abdomen: Soft, Non Tender, Non-Distended Skin: Ulcer/ Wound - foot wrapped Vital Signs Temp Pulse Resp BP Pulse Ox 98.4 F 67 18 141/73 H 96 09/21/18 08:16 09/21/18 08:16 09/21/18 08:16 09/21/18 08:16 09/21/18 08:16 Oxygen Delivery Method Room Air Weight: 57.7 kg Body Mass Index (BMI) 21.8 Finger Stick Blood Glucose 401 Intake and Output for Last 24 Hours 09/19/18 09/20/18 09/21/18 23:59 23:59 23:59 Intake Total 4377 / 4377 3321 / 3321 1551 / 1551 Output Total 1250 / 1250 800 / 800 1100 / 1100 Balance 3127 / 3127 2521 / 2521 451 / 451 Microbiology Past 72 Hours 09/18/18 09:40 Bacteria Detection (PCR) - Final Blood Culture (Wb) - Anticubital Right Staphylococcus epidermidis Blood Culture - Final Staphylococcus epidermidis 09/18/18 15:10 Gram Stain - Final Wound Drainage - Aerobic & Anaerobic Swabs Wound Culture - Preliminary Providencia stuartii Proteus mirabilis Staphylococcus aureus Anaerobic Culture - Preliminary Checking for anaerobes, further studies to follow. 09/18/18 Unknown Gram Stain - Final Wound - Other Wound Culture - Preliminary Meth. resistant Staph. aureus Proteus mirabilis Providencia stuartii Anaerobic Culture - Preliminary Checking for anaerobes, further studies to follow. 09/18/18 09:35 Blood Culture - Preliminary Blood Culture (Wb) - Anticubital Left No growth in 48 hours. Laboratory Tests Past 24 Hrs 09/20/18 09/21/18 21:30 05:36 Sodium 138 Potassium 3.9 Chloride 105 Carbon Dioxide 26.0 Anion Gap 7 BUN 9 Creatinine 0.71 Estim Creat Clear Calc 72.76 Est GFR (MDRD) Af Amer 108 Est GFR (MDRD) Non-Af 89 BUN/Creatinine Ratio 12.7 Glucose 195 H Calcium 8.4 L Vancomycin Trough 25.1 H POC Glucose 09/20/18 09/20/18 09/20/18 21:22 16:31 11:22 POC Glucose 179 H 235 H 263 H Medical Necessity - Tobacco Use Smoking Status: Current every day smoker Route of nutrition/ use of supplements: [] Nutritional Intake: [] IV Site: [] Robles Catheter: [] - Assessment/Plan Antibiotics: [] Assessment/Plan: [] Active and Suspected Problems Osteomyelitis (Acute) Necrosis of toe (Acute) DM type 2 (diabetes mellitus, type 2) (Acute) Hyperlipidemia (Acute) Osteomyelitis of right foot (Acute) Gas gangrene (Acute) Type 2 diabetes mellitus with diabetic polyneuropathy (Acute) Cellulitis of right foot (Acute) Abscess of right foot (Acute) R foot osteo and gas gangrene with DM neuropathy - taken to OR 09/18 for I&D by Dr. Blanco. Surg cx with providencia, proteus, MRSA. Will narrow abx to vanc/ceftriaxone/po flagyl. Stop date 10/30/28 for 6 week course, weekly bmp, cbc, esr, and vanc trough. ID followup in 2-3 weeks. Wrote rx for labs and abx. Will follow, d/w primary team and hospice case manager
[2018-09-21] MEDS: metroNIDAZOLE 500 MG Tablet PO ×2 (10:56→17:03)
[2018-09-21 12:10] LABS: Bedside Glucose 176 mg/dL (70-110)
[2018-09-21 14:07] VITALS: BP 140/67; PULSE 75; RESP 18; TEMP 37.6; O2SAT 95
[2018-09-21 14:20] LABS: Bedside Glucose 216 mg/dL (70-110)
--- NOTE | 2018-09-21 15:01 | PCM.TXEXTCAR ---
- Diet 09/20/18 08:02 Diabetic [Diet: Calorie Controlled] Is pt able to select menu?: Yes How many daily calories?: 1400 calorie - Wound(s) foot Wound Type: Neuropathic/Diabetic Foot Ulcer right great toe Wound Type: Neuropathic/Diabetic Foot Ulcer Dressing Change: Wet to Dry Dressing right medial foot Wound Type: Neuropathic/Diabetic Foot Ulcer Dressing Change: Wet to Dry Dressing Right Foot Wound Type: Surgical Incision - Therapies Physical Therapy: Eval and Treat Occupational Therapy: Eval and Treat - Problem/Diagnosis (1) Necrosis of toe Status: Acute Current Visit: Yes (2) DM type 2 (diabetes mellitus, type 2) Status: Acute Current Visit: Yes (3) Hypertension Status: Chronic Current Visit: Yes (4) Hyperlipidemia Status: Acute Current Visit: Yes (5) Osteomyelitis Status: Acute Current Visit: Yes - Allergies/Procedures Done in Hospital Allergies/Adverse Reactions: Allergies No Known Allergies Allergy (Verified 09/18/18 08:46) - Type of Care/Length of Stay Estimated LOS: Convalescent Care Less Than 30 days Type of Care Needed: Skilled Rehab Potential: Good Prognosis: Good - Additional Orders/Day of Discharge Day of Discharge: 09/21/18 - Dietary and Speech Recommendations Dietitian Recommendations/Changes: Recommend change to carb controlled/cardiac diet. Will add Glucalyssa cardoza with medpass--wound healing. Recommend [place] 1 packet BID for wound healing--order from pharmacy. - Follow Up Care Primary Care Physician: Marquis Guerra Chi, MD [Primary Care Provider] - Please follow up with your Primary Care Physician in: 3-5 days
--- NOTE | 2018-09-21 15:15 | DS.PCM_ITS ---
Discharge Date and Diagnosis - Problem List Patient Problems: Active and Suspected Problems Osteomyelitis (Acute) Necrosis of toe (Acute) DM type 2 (diabetes mellitus, type 2) (Acute) Hyperlipidemia (Acute) Osteomyelitis of right foot (Acute) Gas gangrene (Acute) Type 2 diabetes mellitus with diabetic polyneuropathy (Acute) Cellulitis of right foot (Acute) Abscess of right foot (Acute) Date of Admission: 09/18/18 Date of Discharge: 09/21/18 - Primary Discharge Diagnosis Active and Suspected Problems Osteomyelitis (Acute) Necrosis of toe (Acute) DM type 2 (diabetes mellitus, type 2) (Acute) Hyperlipidemia (Acute) Osteomyelitis of right foot (Acute) Gas gangrene (Acute) Type 2 diabetes mellitus with diabetic polyneuropathy (Acute) Cellulitis of right foot (Acute) Abscess of right foot (Acute) - Secondary Discharge Diagnosis Chronic Problems Hypertension (Chronic) Hospital Course and Treatment Imaging Results: R Foot XR: IMPRESSION: Soft tissue swelling with gas in the soft tissues overlying the first metatarsal and first toe. Possible osteomyelitis involving the distal phalanx of the great toe. CTA Abd/Pelvis: FINDINGS: Diffuse fatty infiltration of the liver. Left adrenal hyperplasia. Small retroperitoneal lymph nodes. Retroaortic left renal vein. Abdominal aorta: Atherosclerotic plaque formation. No evidence of aneurysm. Celiac and superior mesenteric arteries: Nonstenotic atherosclerotic plaque at the origin of the superior mesenteric artery. Inferior mesenteric artery: No demonstrated narrowing. Right renal artery(arteries): No demonstrated narrowing. Left renal artery(arteries): No demonstrated narrowing. Right common iliac artery: Calcified plaques. Right external iliac artery: No demonstrated narrowing. Right internal iliac artery: No demonstrated narrowing. Left common iliac artery: Calcified plaques. Left external iliac artery: No demonstrated narrowing. Left internal iliac artery: No demonstrated narrowing. RIGHT LOWER EXTREMITY Right common femoral artery: No demonstrated narrowing. Right profundus femoris: No demonstrated narrowing. Right superficial femoral: Diffuse atherosclerotic plaque formation. Moderate stenosis along its distal portion. Right popliteal artery: No demonstrated narrowing. Right tibioperoneal trunk: No demonstrated narrowing. Right anterior tibial artery: No demonstrated narrowing. Right posterior tibial artery: No demonstrated narrowing. Right peroneal artery: No demonstrated narrowing. LEFT LOWER EXTREMITY Left common femoral artery: No demonstrated narrowing. Left profundus femoris: No demonstrated narrowing. Left superficial femoral: Diffuse atherosclerotic plaque formation worse in its distal portion. Moderate stenosis. Left popliteal artery: No demonstrated narrowing. Left tibioperoneal trunk: No demonstrated narrowing. Left anterior tibial artery: No demonstrated narrowing. Left posterior tibial artery: No demonstrated narrowing. Left peroneal artery: No demonstrated narrowing. Consultations 09/18/18 14:48 Consult: Onc/Wound/early years teacher Routine Comment: Reason for Consult:: Right toe osteo and necrosis Podiatry Vascular ID Operations: - - Report of Operation Date of Procedure: 09/18/18 Pre-Operative Diagnosis: gas gangrene and osteomyelitis with abscess of right foot Post- Operative Diagnosis: same Surgery/Procedure Performed:: Incision and drainage and debridement of all necrotic, nonviable, infected soft tissue and bone of the right foot with hallux amputation. Description of Surgical Findings:: Hemostasis: well padded right ankle tourniquet Type of Anesthesia:: Local MAC - Preoperative ankle block consisting of 10 mL of 0.5% Marcaine plain Specimen's removed: Necrotic and infected soft tissue and bone sent to pathology and microbiology for further evaluation. Estimated Blood Loss (mL): 20mL Procedures: None Summary of Care Provided: Per HPI: The patient is a 58 year old F who presents with several weeks of right toe necrosis. Her great toe on the right has been black and has a small foul- smelling odor to it. This been going on for several weeks and she did not want to come to the doctor. However she has been having some intermittent pain across her foot and so today when she woke up she told her daughter that she felt that she needed to come in to the hospital. She denies any fevers or chills. No shortness of breath or chest pain. In the ER she was afebrile, and not tachycardic. The ER discussed the case with podiatry who recommended getting a CTA with runoff of her lower extremity which demonstrated blood flow. She was given a dose of Zosyn and vancomycin in the ER prior to admission. Hospital Course: 1. Right toe necrosis with likely osteomyelitis is post right great toe [id number]-old female several weeks of right toe necrosis, she came in because of a persistent small filling odor. In the ER she was found to have a necrotic right great toe as well as an area of necrosis on the bottom of her foot. She underwent a CTA with runoff of her lower extremities which demonstrated decent blood flow. Vascular surgery was consulted who would like to see her previous ABIs before making a determination however they feel that she should have been enough blood flow to heal. Podiatry resected the great toe and did further debridements in the bottom of her foot and has had bedside debridement as well. Infectious disease was also consulted and added clindamycin to her Zosyn and vancomycin regimen, however microbiology samples demonstrated P. stuartii, Proteus mirabilis, MRSA, and therefore infectious disease transition her antibiotic regimen to Rocephin, p.o. Flagyl, vancomycin. She has a PICC line placed and will need to have antibiotics for 6 weeks, ending on 10/30/2018. She also need weekly BMP CBC ESR and Vanco trough and will follow-up with infectious disease in 2 to 3 weeks. She does feel much better now after surgery with the IV antibiotics and it was discussed with her to go to a senior living facility for wound care and rehab which she is in agreement with. She will need to follow-up at the wound care center as well as with Dr. Blanco as an outpatient while at the SNF next week. 2. DM 2-her blood sugars were elevated in the setting of infection and her oral hyperglycemics were held and she was started on insulin. She can be discharged on all of her home medications. 3. Her other medical diagnoses were evaluated and her home medications were continued where appropriate Patient Problems: Active and Suspected Problems Osteomyelitis (Acute) Necrosis of toe (Acute) DM type 2 (diabetes mellitus, type 2) (Acute) Hyperlipidemia (Acute) Osteomyelitis of right foot (Acute) Gas gangrene (Acute) Type 2 diabetes mellitus with diabetic polyneuropathy (Acute) Cellulitis of right foot (Acute) Abscess of right foot (Acute) - Physical Exam Vital Signs Temp Pulse Resp BP Pulse Ox 99.6 F H 75 18 140/67 H 95 09/21/18 14:07 09/21/18 14:07 09/21/18 14:07 09/21/18 14:07 09/21/18 14:07 Oxygen Delivery Method Room Air Weight: 127 lb 3.307 oz Body Mass Index (BMI) 21.8 Finger Stick Blood Glucose 401 Intake and Output for Last 24 Hours 09/19/18 09/20/18 09/21/18 23:59 23:59 23:59 Intake Total 4377 / 4377 3321 / 3321 2271 / 2271 Output Total 1250 / 1250 800 / 800 1550 / 1550 Balance 3127 / 3127 2521 / 2521 721 / 721 Microbiology Past 72 Hours 09/18/18 Unknown Gram Stain - Final Wound - Other Wound Culture - Preliminary Meth. resistant Staph. aureus Proteus mirabilis Providencia stuartii Gram positive joyce Anaerobic Culture - Preliminary Checking for anaerobes, further studies to follow. 09/18/18 15:10 Gram Stain - Final Wound Drainage - Aerobic & Anaerobic Swabs Wound Culture - Preliminary Providencia stuartii Proteus mirabilis Staphylococcus aureus Gram positive joyce Anaerobic Culture - Preliminary Checking for anaerobes, further studies to follow. 09/18/18 09:40 Bacteria Detection (PCR) - Final Blood Culture (Wb) - Anticubital Right Staphylococcus epidermidis Blood Culture - Final Staphylococcus epidermidis 09/18/18 09:35 Blood Culture - Preliminary Blood Culture (Wb) - Anticubital Left No growth in 48 hours. Laboratory Tests Past 24 Hrs 09/20/18 09/21/18 21:30 05:36 Sodium 138 Potassium 3.9 Chloride 105 Carbon Dioxide 26.0 Anion Gap 7 BUN 9 Creatinine 0.71 Estim Creat Clear Calc 72.76 Est GFR (MDRD) Af Amer 108 Est GFR (MDRD) Non-Af 89 BUN/Creatinine Ratio 12.7 Glucose 195 H Calcium 8.4 L Vancomycin Trough 25.1 H POC Glucose 09/21/18 09/21/18 09/20/18 12:06 08:03 21:22 POC Glucose 216 H 176 H 179 H 09/20/18 16:31 POC Glucose 235 H Home Medications: Medications to take at Discharge Aspirin [Aspirin, Baby] 81 mg PO DAILY@0800 12/27/15 Atorvastatin Calcium 40 mg PO DAILY 09/18/18 Cholecalciferol (VIT D3) [Vitamin D3] 1,000 unit PO DAILY 09/18/18 Clopidogrel Bisulfate [Clopidogrel] 75 mg PO DAILY 09/18/18 Glimepiride 4 mg PO DAILY 09/18/18 Lisinopril 2.5 mg PO DAILY 09/18/18 Pioglitazone HCl 09/18/18 metFORMIN HCl [Glucophage] 1,000 mg PO BIDCM 09/18/18 Ceftriaxone 2 gm IV Q24 40 Days #40 vial 09/21/18 Vancomycin/0.9 % Sod Chloride [Vanco 1.5 gm/250 ml-0.9% NaCl] 1.5 gm IV Q12H 40 Days #80 plast..bag 09/21/18 metroNIDAZOLE [Flagyl] 500 mg PO TID 40 Days #120 tab 09/21/18 Following Prescrptions Were Given to Patient: Ceftriaxone 2 gm IV Q24 40 Days #40 vial Prescription Printed metroNIDAZOLE [Flagyl] 500 mg PO TID 40 Days #120 tab Prescription Printed Vancomycin/0.9 % Sod Chloride [Vanco 1.5 gm/250 ml-0.9% NaCl] 1.5 gm IV Q12H 40 Days #80 plast..bag Prescription Printed Primary Care Physician: Marquis Guerra Chi, MD [Primary Care Provider] - Please follow up with your Primary Care Physician in: 3-5 days Please Follow Up With: Pete Beth MD When: 2-3 weeks Please Follow Up With: Wound Care - Dr. Blanco When: 1 week Disposition: Assisted facility Minutes spent on discharge:: 35 Patient Condition:: Good Medical Necessity - Tobacco Use Smoking Status: Current every day smoker Meaningful Use Info Meaningful Use Diagnoses (Choose all that apply): None applicable Code Visit Inpatient E&M: 01126 Disch Hosp
--- NOTE | 2018-09-21 15:20 | NURSING ---
[facility] so dressing was not changed at this time since nursing staff will need to take dressing off [facility]. wound was irrigated this am and new dressing was applied at that time.
--- NOTE | 2018-09-21 16:35 | CASEMGMT ---
Social Work Note SW received message from Alyssa at [facility] stating pre-cert has been obtained and pt is able to discharge today. Physician updated. Pt is medically cleared for discharge. HAILE faxed completed discharge paperwork to Alyssa at [facility] including transfer to extended care facility, signed medication list and any scripts. Original in SNF folder and copy on pt's chart. HAILE arranged transportation through [facility] via cot for 6:00pm. Transportation form completed, placed on SNF folder and copy placed on pt's chart. HAILE completed [facility] in [facility]. Original in SNF folder and copy on pt's chart. HAILE updated pt on approval on SNF and discharge time. HAILE placed a call to pt's daughter Rosetta and updated her on approval to SNF, discharge today and transportation time. HAILE updated RN and Alyssa at [facility] of transportation time. Plan: Pt to discharge to [facility] today skilled with [facility] transporting via cot at 6:00pm Maddie Mcneill APPLICATION SUPPORT LEAD, CABLE TELEVISION LINE TECHNICIAN
--- NOTE | 2018-09-21 17:06 | NURSING ---
Call placed tp [facility] and report given to nurse taking over care for this patient
[2018-09-21 17:26] LABS: Bedside Glucose 235 mg/dL (70-110)
== END 2018-09-21 18:10 | disposition skilled nursing facility (03) | DRG 616 ==
LOC: ED 08:58 → MS3 13:48
PROVIDERS: Anesthesiology; Podiatrist; Admitting Provider Family Medicine; Emergency Provider Emergency Medicine; Family Provider Family Medicine Geriatric Medicine; PCP Family Medicine Geriatric Medicine; Referring Provider Family Medicine; Visit Provider Family Medicine
PROC: 0Y6P0Z0 Detachment at Right 1st Toe, Complete, Open Approach (ICD-10-PCS; principal; 2018-09-18 17:20)
DX: E11.69 Type 2 diabetes mellitus with other specified complication (principal); A48.0 Gas gangrene; L02.611 Cutaneous abscess of right foot; L03.115 Cellulitis of right lower limb; M86.8X7 Other osteomyelitis, ankle and foot; E78.5 Hyperlipidemia, unspecified; I10 Essential (primary) hypertension; E11.42 Type 2 diabetes mellitus with diabetic polyneuropathy; L97.519 Non-pressure chronic ulcer of other part of right foot with unspecified severity; E11.621 Type 2 diabetes mellitus with foot ulcer; B95.62 Methicillin resistant Staphylococcus aureus infection as the cause of diseases classified elsewhere; B96.4 Proteus (mirabilis) (morganii) as the cause of diseases classified elsewhere; B96.89 Other specified bacterial agents as the cause of diseases classified elsewhere; Z79.84 Long term (current) use of oral hypoglycemic drugs; Z86.73 Personal history of transient ischemic attack (TIA), and cerebral infarction without residual deficits; F17.210 Nicotine dependence, cigarettes, uncomplicated
CPT/HCPCS: 36415; 36569; 73630; 75635; 80048; 80053; 80202; 82962; 83036; 85025; 85652; 86140; 87015; 87040; 87070; 87075; 87077; 87102; 87116; 87149; 87186; 87205; 87206; 87640; 88304; 88305; 88311; 88312; 93005; 97162; 97166; 97530; 97535; 99285; 99406; J7030; J7040; J7050; Q9967; A4216; J0696; J2405

== ENCOUNTER 2018-09-26 12:00 | Inpatient (IN) | payer OTHER, SELFPAY ==
[2018-09-18 16:58] VITALS: BMI 21.8
[2018-09-26] VITALS (12 sets, daily range): BP systolic 76–140; BP diastolic 42–83; PULSE 64–83; RESP 16–18; TEMP 36.1–37.1; O2SAT 95–98; BMI 27.1; BMI 25.0; BMI 25.1
--- NOTE | 2018-09-26 12:06 | RAD_ITS ---
STUDY: X-RAY - RIGHT FOOT CLINICAL: Female, 58 years old. Black toes, recent surgery TECHNIQUE: 3 view(s) of the foot. COMPARISON: 09/18/2018 FINDINGS: Patient is undergone recent amputation of the phalanges of the great toe. No demonstrated erosive changes noted around the remaining first metatarsal but there is evidence of subcutaneous emphysema, best seen on the lateral film to suspect an inflammatory process. Remaining joint spaces well-preserved, no acute fracture. Prominent calcaneal spurs noted. RAD/Foot min 3 Views IMPRESSION: No demonstrated fracture or erosive osseous lesion. Subcutaneous emphysema noted around the proximal phalanx of the second toe and the distal aspect of the third metatarsal suggesting inflammatory process such as osteomyelitis Calcaneal spurs Electronically Signed: Evelio Denney MD at 12:49 EDT , Service support ,
--- NOTE | 2018-09-26 12:12 | ED.DCSUM_ITS ---
History of Present Illness Chief Complaint: Wound Informant: Patient, SNF, PCP Onset: - - Since last dressing change Context: Gradual Onset Timing: Continuous Quality: Patient with gas gangrene requiring surgery and IV antibiotics Location: Right foot Current Severity: Mild Maximum Severity: Moderate Worsened by: PAD, diabetes Relieved by: Nothing Associated Symptoms: No constitutional symptoms or pain Narrative: Patient was admitted for infected right foot with osteomyelitis and gas gangrene requiring operative intervention by Dr. Roland Blanco. Postop diagnosis/procedure: Incision and drainage and debridement of all necrotic, nonviable, infected soft tissue and bone of the right foot with hallux amputation. She was sent to the ER because nurse at [facility] was concerned regarding right lesser toes. She denies fever or chills. She denies pain. Prior similar symptoms: Yes Recent Illness/Hospitalization: Yes - Past Medical History (1) History of PAD Status: Acute (2) DM type 2 (diabetes mellitus, type 2) Status: Acute (3) Hyperlipidemia Status: Acute (4) Osteomyelitis of right foot Status: Acute (5) Type 2 diabetes mellitus with diabetic polyneuropathy Status: Acute (6) Hypertension Status: Chronic Past Medical History - Allergies and Home Meds Allergies/Adverse Reactions: Allergies No Known Allergies Allergy (Verified 09/26/18 12:03) Primary Care Physician: Marquis Guerra Chi, MD [Primary Care Provider] - Prior records reviewed: Yes Surgical History: no surgical history Lives: Retirement Smoking Status: Former smoker Alcohol: None Drugs: None - Family History Maternal Family History: Reports: Cancer Paternal Family History: Reports: Heart Disease Review of Systems General: Denies: Chills, Fever, Malaise, Subjective, Sweats Eyes: Denies: Visual changes - bilaterally, Blurred Vision - bilaterally, Diplopia Cardiovascular: Denies: Chest pain, Palpitations, Heart racing Respiratory: Denies: Dyspnea, Cough, Dyspnea on exertion Gastrointestinal: Denies: Abdominal pain, Nausea, Vomiting, Diarrhea, Melena, Hematochezia Genitourinary: Denies: Dysuria, Hematuria, Frequency Musculoskeletal: Denies: Myalgias, Arthralgias, Neck pain, Back pain, Swelling, Extremity Pain Skin: Reports: Abscess, Wounds. Denies: Rash, Abrasions Neurological: Reports: Weakness, Parasthesia - History of diabetic neuropathy. Denies: Headache Psych: Reports: Depression Hematologic: Denies: Easy bruising, Easy bleeding Allergy: Denies: Uticaria Physical Exam Vital Signs/Narrative: Vital Signs Temp Pulse Resp BP Pulse Ox 09/26/18 12:01 98.1 F 83 18 138/57 H 95 Inital Vital Signs reviewed: Yes General: Well nourished, Well developed, No Acute Distress Head: Normocephalic, Atraumatic Eyes: Perrl, EOMI ENT: Moist mucous membranes, No rhinorrhea Neck: Supple, Nontender Cardiovascular: Regular rate, Regular rhythm, No murmurs Respiratory: No distress, CTA bilaterally, Chest nontender Abdomen: Soft, Nontender, Nondistended, Normal bowel sounds Back: Nontender, Normal Inspection Extremities: Nontender, No edema, - - DP and PT pulses are not palpable. The right little toe is slightly pale in comparison other toes. The fourth toe is discolored. There is an open wound plantar surface right foot there is no evidence of cellulitis. There is no lymphangitis. There is no popliteal or inguinal lymphadenopathy. Skin: Normal color, No rash Neurological: Alert, Oriented x3, Cranial nerves II-XII grossly intact, Normal Strength. Negative for: Normal Sensation, Normal Gait Psychological: Normal affect, Normal Mood Diagnostic/Tx/Re-eval Chest X-Ray - ED: Read by ED Physician, - - Review x-ray reveals increased density head of the first metatarsal. There is also subcutaneous air noted proximal phalanx of the second and third toe and in the proximity of the second metatarsal head. Impressions Foot X-Ray 09/26/18 12:06 IMPRESSION: No demonstrated fracture or erosive osseous lesion. Subcutaneous emphysema noted around the proximal phalanx of the second toe and the distal aspect of the third metatarsal suggesting inflammatory process such as osteomyelitis Calcaneal spurs Electronically Signed: Evelio Denney MD at 12:49 EDT , Service support , 09/26/18 12:06 Foot min 3 Views [RAD] Stat Laboratory Results 09/26/18 09/26/18 09/26/18 12:25 12:25 12:25 WBC 8.7 RBC 3.17 L Hgb 8.2 L Hct 26.4 L MCV 83.3 MCH 25.9 L MCHC 31.1 L RDW Std Deviation 41.2 RDW Coeff of Nuno 13.7 Plt Count 389 MPV 9.2 Immature Gran % (Auto) 1.100 H Neut % (Auto) 76.7 H Lymph % (Auto) 13.7 L Kingfisher % (Auto) 5.4 Eos % (Auto) 2.6 Baso % (Auto) 0.5 Absolute Neuts (auto) 6.7 Absolute Lymphs (auto) 1.19 Absolute Nucleated RBC 0.00 Nucleated RBC % 0 ESR 79 H Sodium 142 Potassium 3.6 Chloride 109 H Carbon Dioxide 27.0 Anion Gap 6 BUN 16 Creatinine 0.65 Estim Creat Clear Calc 79.48 Est GFR (MDRD) Af Amer 120 Est GFR (MDRD) Non-Af 99 BUN/Creatinine Ratio 24.8 H Glucose 135 H Lactic Acid 1.4 Calcium 8.2 L Total Bilirubin 0.30 AST 14 L ALT 19 Alkaline Phosphatase 100 C-React Prot Ext Range 17.50 H Total Protein 5.8 L Albumin 1.9 L Globulin 3.9 Albumin/Globulin Ratio 0.5 L - Medical Decision Making We will obtain x-ray to see if there is evidence of gas gangrene. Clinically there is no crepitus or subcutaneous air. CBC, ESR and CRP were obtained. Basic metabolic panel was obtained to assess renal function, CO2/anion gap and blood sugar. Photos of patient's first metatarsal head as well as pitchers of the lesser toes and plantar surface of the foot were sent to her surgeon, Dr. Blanco. Infectious disease was contacted since patient is presently on IV antibiotics to determine what best to place patient on. Hospitalist has been paged to have patient admitted with plan of possible transmetatarsal amputation. Podiatry was contacted and will see patient in consultation. ED Disposition - Plan for ED Patient: Disposition: Acute Care Hospital [facility] Diagnosis: Osteomyelitis of foot, right, acute, DM type 2 (diabetes mellitus, type 2), PAD (peripheral artery disease), Gangrene of toe of right foot Referrals: Marquis Guerra Chi, MD [Primary Care Provider] -
[2018-09-26 12:46] LABS: ALB/GLOB Ratio 0.5 RATIO (0.9-2.4); AST(SGOT) 14 U/L (15-37); Alanine Aminotransfer ALT/SGPT 19 U/L (13-56); Albumin, Serum 1.9 g/dL (3.2-5.0); Alkaline Phosphatase 100 U/L (45-117); Anion Gap 6 (5-15); BUN 16 mg/dL (7-18); BUN/Creat Ratio 24.8 RATIO (10-20); Calcium,Total 8.2 mg/dL (8.5-10.1); Chloride 109 mmol/L (98-107); Creatinine, Serum 0.65 mg/dL (0.55-1.02); EST Glomerular Filtration Rate 99 mL/min (>60); Est Glom Filt Rate - Afr Amer 120 mL/min (>60); Estimated Creatinine Clearance 79.48 ml/min; Globulin 3.9 g/dL (2.2-4.2); Glucose 135 mg/dL (74-106); Potassium 3.6 mmol/L (3.5-5.1); Protein, Total 5.8 g/dL (6.4-8.2); Sodium Level 142 mmol/L (136-145)
[2018-09-26 12:53] LABS: Erythrocyte Sedimentation Rate 79 mm/hr (0-30)
[2018-09-26 12:55] LABS: Lactic Acid 1.4 mmol/L (0.4-2.0)
[2018-09-26 12:58] LABS: Absolute Lymphocyte Count 1.19 X10^3/uL (0.83-4.51); Absolute Neutrophil Count 6.7 X10^3/uL (2.0-7.7); Basophil# 0.04 X10^3/uL; Basophil% 0.5 % (0-1); Eosinophil# 0.23 X10^3/uL; Eosinophils% 2.6 % (0-5); Hematocrit 26.4 % (37-47); Hemoglobin 8.2 g/dL (12.0-15.0); Lymphocyte # 1.19 X10^3/ul (4.0); Lymphocyte % 13.7 % (19-41); Mean Corp Hgb Conc 31.1 g/dL (32-36); Mean Corpuscular Hgb 25.9 pg (27.0-32.0); Mean Corpuscular Volume 83.3 fL (81-99); Mean Platelet Vol. 9.2 fl (6.2-12.0); Monocyte# 0.47 X10^3/uL; Monocyte% 5.4 % (0-10); NRBC Flagged by Analyzer 0 % (0-5); Neutrophil # 6.68 X10^3/uL (2.7-7.7); Neutrophil % 76.7 % (47-70); Platelet Count 389 K/mm3 (150-450); RBC Distribution Width CV 13.7 % (11.6-14.6); RBC Distribution Width SD 41.2 fl (35.1-43.9); Red Blood Count 3.17 M/mm3 (4.2-5.4); White Blood Count 8.7 K/mm3 (4.4-11.0)
--- NOTE | 2018-09-26 13:38 | NURSING ---
HOSPITALIST PAGED DR HERNANDEZ PAGED
--- NOTE | 2018-09-26 13:46 | NURSING ---
DR ANGEL HOYOS
--- NOTE | 2018-09-26 13:52 | NURSING ---
MED SURG ANGEL OSTEOMYELITIS RT FOOT, GANGRENE TOE
--- NOTE | 2018-09-26 14:50 | PCM.HP.STD ---
Problem List (1) DM type 2 (diabetes mellitus, type 2) Status: Chronic (2) Gangrene of toe of right foot Status: Chronic (3) Osteomyelitis of foot, right, acute Status: Chronic (4) PAD (peripheral artery disease) Status: Chronic (5) Abscess of right foot Status: Chronic (6) Cellulitis of right foot Status: Resolved (7) Gas gangrene Status: Chronic (8) History of PAD Status: Chronic (9) Hyperlipidemia Status: Chronic (10) Necrosis of toe Status: Acute (11) Osteomyelitis Status: Acute (12) Osteomyelitis of right foot Status: Acute (13) Type 2 diabetes mellitus with diabetic polyneuropathy Status: Acute (14) Hypertension Status: Chronic History of Present Illness Date of Admission: 09/26/18 Chief Complaint: Right foot infection/not healing The patient is a 58 year old F with multiple comorbidities, was just discharged on 09/21/2017 after right foot osteomyelitis and gangrene on IV antibiotics Rocephin and metronidazole to [place] [facility] came back right foot wound not healing. Toes are black. During previous admission, she found to have right great toe necrosis and plantar aspect and underwent right great toe amputation. She also had a CTA with runoff of lower extremities which demonstrated good/decent blood flow. Vascular surgery was also consulted. At that time she was on vancomycin, Zosyn and clindamycin and microbiology demonstrated P. stuartii, Proteus mirabilis, MRSA, and therefore infectious disease transition her antibiotic regimen to Rocephin, p.o. Flagyl, vancomycin. [] Patient had x-ray done which shows subcutaneous emphysema around the proximal phalanx of second and distal aspect of third metatarsal suggesting a inflammatory process osteomyelitis. Patient is admitted further for IV antibiotics, podiatry consult probably needs further distal transmetatarsal amputation Past Medical History Past Medical History (Chronic Problems): Chronic Problems DM type 2 (diabetes mellitus, type 2) (Chronic) Hypertension (Chronic) Hyperlipidemia (Chronic) Gas gangrene (Chronic) Abscess of right foot (Chronic) History of PAD (Chronic) Osteomyelitis of foot, right, acute (Chronic) PAD (peripheral artery disease) (Chronic) Gangrene of toe of right foot (Chronic) Allergies No Known Allergies Allergy (Verified 09/26/18 12:03) Home Medications: Ambulatory Orders Medication Instructions Recorded Aspirin [Aspirin, Baby] 81 mg PO DAILY@0800 12/27/15 Atorvastatin Calcium 40 mg PO DAILY 09/18/18 Cholecalciferol (VIT D3) [Vitamin 1,000 unit PO DAILY 09/18/18 D3] Clopidogrel Bisulfate [Clopidogrel] 75 mg PO DAILY 09/18/18 Glimepiride 4 mg PO DAILY 09/18/18 Lisinopril 2.5 mg PO DAILY 09/18/18 metFORMIN HCl [Glucophage] 1,000 mg PO BIDCM 09/18/18 Ceftriaxone 2 gm IV Q24 40 Days #40 vial 09/21/18 Vancomycin/0.9 % Sod Chloride 1.5 gm IV Q12H 40 Days #80 09/21/18 [Vanco 1.5 gm/250 ml-0.9% NaCl] plast..bag metroNIDAZOLE [Flagyl] 500 mg PO TID 40 Days #120 tab 09/21/18 Acetaminophen 650 mg PO Q4H PRN PRN 09/26/18 Acetaminophen [Tylenol] 650 mg RECTAL Q4H PRN PRN 09/26/18 Ascorbic Acid [Vitamin C] 500 mg PO DAILY 09/26/18 Bisacodyl [Laxative Suppository] 10 mg TN DAILY PRN PRN 09/26/18 Dextrose [Glucose Gel] 38 gm PO PRN PRN 09/26/18 Glucagon,Human Recombinant 1 mg IJ PRN PRN 09/26/18 [Glucagon Emergency Kit] Guaifenesin [Robitussin] 10 ml PO Q4H PRN PRN 09/26/18 Mag Hydrox/Aluminum Hyd/Simeth 30 ml PO Q4H PRN PRN 09/26/18 [Antacid Liquid] Magnesium Hydroxide [Milk Of 30 ml PO DAILY PRN PRN 09/26/18 Magnesia] Multivit,Stress Formula/Zinc 1 ea PO BID 09/26/18 [Stress Formula with Zinc Tab] Multivit,Tx with Iron,Minerals 1 ea PO DAILY 09/26/18 [Thera-M] Na Phos,M-B/Na Phos,Di-Ba [Fleet 120 ml RECTAL DAILY PRN PRN 09/26/18 Enema] Nutritional Supplement [Garland - 1 packet PO BIDCM 09/26/18 ORANGE FLAVOR] Surgical History: no surgical history Lives: Longterm Smoking Status: Former smoker Alcohol: None Drugs: None - *Family History Maternal History Items: Cancer Paternal History Items: Heart Disease Review of Systems Constitutional: Reports: Weakness. Denies: Chills, Fever, Weight Change HEENT: Denies: Head Aches, Sinus Congestion, Sinus Drainage Cardiovascular: Denies: Chest Pain, Palpitations Respiratory: Denies: Cough, Shortness of breath at rest, Sputum production Gastrointestinal: Reports: Nausea, - - Patient had mild loose bowel movement about 3 days ago, thought to be secondary to Garland nutritional supplement. It is better now.. Denies: Abdominal Pain, Vomiting Genitourinary: Denies: Dysuria Musculoskeletal: Reports: Joint Pain. Denies: Joint Tenderness Skin: Denies: Rash, Wounds Neurological: Reports: Balance problems. Denies: Focal weakness, Numbness, Tingling Psychiatric: Denies: Anxiety, Depression, Homicidal Ideations, Suicidal Ideations Hematologic/ Lymphatic: Denies: Easy Bruising, Easy Bleeding VTE Information - Inpt Only VTE Present on Admission: No VTE Mechan Device Prophylaxis: None VTE Pharm Prophylaxis ordered?: Yes - Physical Exam General: Alert, Oriented x3, Cooperative HEENT: Atraumatic, PERRLA, EOMI, Normocephalic Neck: Supple, No JVD, Negative Carotid Bruits Lungs: Clear to auscultation, Normal air movement, No rhonchi, No wheeze, No rales Cardiovascular: Regular rate, Regular Rhythm, Normal S1, Normal S2, No murmurs Abdomen: Bowel Sounds Present, Soft, Non Tender, Non-Distended Extremities: No edema, Capillary Refill Less than 3 Seconds Skin: No rashes, No breakdown Musculoskeletal: No Tenderness to Palpation of Joints or Extremities, Arthritic Changes Neurological: Cranial nerves II-XII grossly intact, Deep Tendon Reflexes 2+/4 and Symmetrical, Neuro grossly intact, Motor Exam 5/5 strength throughout - Except in the right ankle joint. Psych/Mental Status: Normal Affect, Appropriate Vital Signs Temp Pulse Resp BP Pulse Ox 98.4 F 81 16 138/64 H 96 09/26/18 14:00 09/26/18 14:00 09/26/18 14:00 09/26/18 14:00 09/26/18 14:00 Oxygen Delivery Method Room Air Weight: 158 lb 8.198 oz Body Mass Index (BMI) 27.1 Finger Stick Blood Glucose 401 Laboratory Tests Past 24 Hrs 07/09/26/18 09/26/18 12:25 12:25 12:25 WBC 8.7 RBC 3.17 L Hgb 8.2 L Hct 26.4 L MCV 83.3 MCH 25.9 L MCHC 31.1 L RDW Std Deviation 41.2 RDW Coeff of Nuno 13.7 Plt Count 389 MPV 9.2 Immature Gran % (Auto) 1.100 H Neut % (Auto) 76.7 H Lymph % (Auto) 13.7 L Stanley % (Auto) 5.4 Eos % (Auto) 2.6 Baso % (Auto) 0.5 Absolute Neuts (auto) 6.7 Absolute Lymphs (auto) 1.19 Absolute Nucleated RBC 0.00 Nucleated RBC % 0 ESR 79 H Sodium 142 Potassium 3.6 Chloride 109 H Carbon Dioxide 27.0 Anion Gap 6 BUN 16 Creatinine 0.65 Estim Creat Clear Calc 79.48 Est GFR (MDRD) Af Amer 120 Est GFR (MDRD) Non-Af 99 BUN/Creatinine Ratio 24.8 H Glucose 135 H Lactic Acid 1.4 Calcium 8.2 L Total Bilirubin 0.30 AST 14 L ALT 19 Alkaline Phosphatase 100 C-React Prot Ext Range 17.50 H Total Protein 5.8 L Albumin 1.9 L Globulin 3.9 Albumin/Globulin Ratio 0.5 L Assessment/Plan All Active Problems Osteomyelitis (Acute) Necrosis of toe (Acute) Osteomyelitis of right foot (Acute) Type 2 diabetes mellitus with diabetic polyneuropathy (Acute) Cellulitis of right foot (Resolved) The patient is a 58 year old F with multiple comorbidities, was just discharged on 09/21/2017 after right foot osteomyelitis and gangrene on IV antibiotics Rocephin and metronidazole to [place] [facility] came back right foot wound not healing. Toes are black. During previous admission, she found to have right great toe necrosis and plantar aspect and underwent right great toe amputation. She also had a CTA with runoff of lower extremities which demonstrated good/decent blood flow. Vascular surgery was also consulted. At that time she was on vancomycin, Zosyn and clindamycin and microbiology demonstrated P. stuartii, Proteus mirabilis, MRSA, and therefore infectious disease transition her antibiotic regimen to Rocephin, p.o. Flagyl, vancomycin. [] Patient had x-ray done which shows subcutaneous emphysema around the proximal phalanx of second and distal aspect of third metatarsal suggesting a inflammatory process osteomyelitis. Patient is admitted further for IV antibiotics, podiatry consult probably needs further distal transmetatarsal amputation 1. Right distal foot subcutaneous emphysema to proximal phalanx of second toe and third metatarsal consistent with osteomyelitis status post right great toe amputation: [facility] Started on IV antibiotics vancomycin and Zosyn. Poultry Service Technician and ID consult. Need further surgical evaluation for possible metatarsal amputation. Patient does not have leukocytosis, fever or chills. 2. is mellitus type II: Accu-Chek essences cover with Humalog sliding scale. Titrate insulin as per the Accu-Cheks. 3. Chronic nicotine use: On nicotine patch. Discussed smoking cessation. 4. Other comorbidities include hypertension, dyslipidemia, history of CVA Home medication reconciliation done. Hold Plavix for possible surgery . DVT prophylaxis: On Lovenox 40 mg subcu daily. Advanced directive/MOLST: States she has living will. She wants full code including all artificial life support including intubation, tube feed, ventilator and/chest compression. Full code. Discussed with the patient's daughter near the bedside who is power of commonwealth attorney for health. Daughter is Ms. Rosetta Jones Total time spent in [id number] encounter in discussion of advanced directive 18 minutes. Laboratory Results 09/26/18 12:25: WBC 8.7, RBC 3.17 L, Hgb 8.2 L, Hct 26.4 L, MCV 83.3, MCH 25.9 L, MCHC 31.1 L, RDW Std Deviation 41.2, RDW Coeff of Nuno 13.7, Plt Count 389, MPV 9.2, Immature Gran % (Auto) 1.100 H, Neut % (Auto) 76.7 H, Lymph % (Auto) 13.7 L, Stanley % (Auto) 5.4, Eos % (Auto) 2.6, Baso % (Auto) 0.5, Absolute Neuts (auto) 6.7, Absolute Lymphs (auto) 1.19, Absolute Nucleated RBC 0.00, Nucleated RBC % 0, ESR 79 H 09/26/18 12:25: Sodium 142, Potassium 3.6, Chloride 109 H, Carbon Dioxide 27.0, Anion Gap 6, BUN 16, Creatinine 0.65, Estim Creat Clear Calc 79.48, Est GFR (MDRD) Af Amer 120, Est GFR (MDRD) Non-Af 99, BUN/Creatinine Ratio 24.8 H, Glucose 135 H, Calcium 8.2 L, Total Bilirubin 0.30, AST 14 L, ALT 19, Alkaline Phosphatase 100, C-React Prot Ext Range 17.50 H, Total Protein 5.8 L, Albumin 1.9 L, Globulin 3.9, Albumin/Globulin Ratio 0.5 L 09/26/18 12:25: Lactic Acid 1.4 Clinical Impression(s) from Imaging Studies Foot X-Ray 09/26/18 12:06 IMPRESSION: No demonstrated fracture or erosive osseous lesion. Subcutaneous emphysema noted around the proximal phalanx of the second toe and the distal aspect of the third metatarsal suggesting inflammatory process such as osteomyelitis Calcaneal spurs Code Visit Inpatient E&M: 91882 Init Hosp L3 Procedures: 53737 Advncd Care Plan 30 Min
--- NOTE | 2018-09-26 15:55 | NURSING ---
wound photo: right foot
--- NOTE | 2018-09-26 15:55 | NURSING ---
wound photo: right foot
[2018-09-26 16:15] LABS: Bedside Glucose 88 mg/dL (70-110)
--- NOTE | 2018-09-26 17:12 | EKG12_ITS ---
Test Reason : PREOP Blood Pressure : / mmHG Vent. Rate : 082 BPM Atrial Rate : 082 BPM P-R Int : 142 ms QRS Dur : 082 ms QT Int : 392 ms P-R-T Axes : 050 -11 030 degrees QTc Int : 457 ms Normal sinus rhythm Normal ECG When compared with ECG of 18-SEP-2018 16:15, No significant change was found Confirmed by DARLEEN LUX, BANG ([id number]), editor book HERMINIA SIMON ([id number]) on 09/29/2018 10:03:04 A M Referred By: Kimani Mckinney Confirmed By:BEATA MOREJON MD
--- NOTE | 2018-09-26 17:15 | NURSING ---
pt left floor to go to surgery
--- NOTE | 2018-09-26 18:00 | BON_PTH ---
PATIENT: ROSALINO LEVY LOC: MS3 U#:[id number] AGE/SX: 58/F ROOM: MS316 RE09/26/[address]: Dr. Jessenia Arriaza MD : [id number] BED: 1 DIS: 10/02/2018 SPEC #: [id number] RECD: 09/27/18 07:54 STATUS: TIM RETreva #: [id number] ALLEN: 09/26/18 18:[address]: Jerel Cardona DEPT: SURGICAL PATHOLOGY RECD BY: Pritesh Hurley ENTERED: 09/27/18 11:16 SP TYPE: Bone OTHR DR: MD Dr. Kimani Flaherty MD Dr. Robert Leininger, MD Dr. Tai Chi Kwok, MD Tai Chi Kwok, MD Tissues: A - Bone of foot, NOS B - Bone of foot, NOS C - Bone of foot, NOS D - Bone of foot, NOS E - Bone of foot, NOS F - Bone of foot, NOS Procedures: Decalcification bone/plaque Surgery Specimen Level IV Surgery Specimen Level V HEADER OPERATION: Debridement of all nonviable, infected, necrotic soft tissue PRE-OP DIAGNOSIS: Abscess, osteomyelitis and necrotizing infection of right foot TISSUE SUBMITTED: A - Right first metatarsal clearance fragment, B - Right second metatarsal clearance fragment, C - Right third metatarsal clearance fragment, D - Right fourth metatarsal clearance fragment, E - Right fifth metatarsal clearance fragment, F - Amputated right forefoot MICROSCOPIC DIAGNOSIS A. Right first metatarsal clearance fragment, biopsy: Bone with reparative and reactive change. No evidence of osteomyelitis. B. Right second metatarsal clearance fragment, biopsy: Fragments of unremarkable bone. C. Right third metatarsal clearance fragment, biopsy: Bone with fibrinoid material. No evidence of osteomyelitis. D. Right fourth metatarsal clearance fragment, biopsy: Bone with fibrous tissue. No evidence of osteomyelitis. E. Right fifth metatarsal clearance fragment, biopsy: Fragments of bone with no significant pathologic change. No evidence of osteomyelitis. F. Amputated right forefoot: Skin and soft tissue with ulceration and associated acute and chronic inflammation and granulation bone with acute osteomyelitis. AM:xiomara 10/02/18 MICROSCOPIC DESCRIPTION Slides are reviewed. GROSS DESCRIPTION A - Received in fixative is one container labeled with the patient's name and designated right first metatarsal clearance fragment. The specimen consists of a fragment of bone measuring 0.5 x 0.4 x 0.1 cm. The specimen is totally submitted in one cassette after decalcification. B - Received in fixative is one container labeled with the patient's name and designated right second metatarsal clearance fragment. The specimen consists of a fragment of bone measuring 0.5 x 0.5 x 0.1 cm. The specimen is totally submitted in one cassette after decalcification. C - Received in fixative is one container labeled with the patient's name and designated right third metatarsal clearance fragment. The specimen consists of a fragment of bone measuring 0.7 x 0.5 x 0.1 cm. The specimen is totally submitted in one cassette after decalcification. D - Received in fixative is one container labeled with the patient's name and designated right fourth metatarsal clearance fragment. The specimen consists of a fragment of bone measuring 0.9 x 0.1 x 0.1 cm. The specimen is totally submitted in one cassette after decalcification. E - Received in fixative is one container labeled with the patient's name and designated right fifth metatarsal clearance fragment. The specimen consists of two fragments of bone each measuring 0.5 x 0.3 x 0.1 cm. The specimen is totally submitted in one cassette after decalcification. F - Received in fixative is one container labeled with the patient's name and designated amputated right forefoot. The specimen consists of an amputated portion of foot measuring 10 x 8 x 4 cm. The great toe is absent. The larger surface of the foot shows an ulcerated area with brownish-black discoloration. The skin of the fourth toe appears pink. The nail of the fourth toe also shows bluish discoloration. The rest of the nail appears to show focal atrophy. Supervisor Burling And Joining sections are submitted in four cassettes as follows: 1 - ulcerated area, 2-4 - bone after decalcification. / SJ:rg 09/27/18 TC:2 CPT: 75699, 44516 x5, 89943 x6
[2018-09-26] MEDS: Bupivacaine Mpf 0.5% 30 ML VIAL (18:20)
--- NOTE | 2018-09-26 18:49 | OP.PCM_ITS ---
Report of Operation Date of Procedure: 09/26/18 Pre-Operative Diagnosis: Osteomyelitis, abscess, necrotizing fasciitis, ga ngrene, ulcer down to necrotic bone all right foot Post-Operative Diagnosis: Same Surgery/Procedure Performed:: Debridement of all nonviable, infected, necrotic soft tissue and bone, bone biopsies, right foot, transmetataral amputation director of strategic sales: None Type of Anesthesia:: Local MAC Specimen's removed: 1. Bone biopsy clearance fragments of 1-5 metatarsals sent separately to microbiology and pathology. 2. Deep wound culture of abscess right foot. 3. Amputated forefoot sent to pathology Estimated Blood Loss (mL): 10mL Description of Procedure: Indications: This is a 58 year old female with history of multiple medical problems, including but not limited to uncontrolled diabetes, PAD presented the ER today for worsening foot infection. She has necrosis of the forefoot with gas, and necrotizing infection. Due to this she elected to undergo further debridement of all nonviable necrotic soft tissue and bone, with transmetatarsal amputation and bone biopsy. Reviewed the possible benefits vs risks, goals, expectations and estimated healing time. Ultimately patient understands she is at risk for further infection, amputation, loss of limb, and loss of life. persistent or even worsening infection and ultimate Also advised patient risks also include but are not limited to need for further surgery, blood clots, weakness, transfer lesions, ischemia, bleeding, pain, chronic pain, deformity, numbness, swelling, inability to walk or wear shoes, charcot foot, complex regional pain syndrome, difficulty walking, chronic pain and disability, and again loss of limb, and loss of life. Patient expressed understanding and agreement. All of her questions were answered. The consent form was reviewed with patient, and the patient freely signed it. Also with patient's consent I did review with patient's daughter who was with patient today. Operative Procedure: The patient was brought back to the operating room and was placed on the operating room table in the supine position. The patient was carefully secured to the operating room table with a safety belt around her waist. The patient was already on IV antibiotics. A time out was performed and the patient was properly identified and the surgical plan was confirmed. The patient received MAC anesthesia per the anesthesia team, the skin was cleaned with 70% isopropyl alcohol and 22mL of 0.5% Bupivacaine plain was given as a local block around the foot. A well padded pneumatic tourniquet was applied to the right ankle. The right foot was scrubbed, prepped and draped in the usual aseptic fashion. Further attention was directed to the right foot, where there was significant necrosis of the forefoot, the 4th toe was gangrenous, the 5th toe was turning gangrenous, there was significant necrosis and nonviable tissue to the plantar forefoot, the 1st metatarsal head was exposed and dark and nonviable in appearance, there was crepitus to the plantar forefoot with abscess formation and significant purulence present. There was a large ulcer plantar arch down to muscle and fascia layer. The right foot was elevated for 3 minutes and the right ankle pneumatic tourniquet was inflated to 250mmHg. Using a #15 scalpel blade a circumferential incision was made around the right forefoot, no flap could be preserved as there was extensive tissue loss. There was immediate purulence noted draining from the plantar foot. A deep culture was obtained and sent to microbiology. There was an abscess at this site which was excised using a 15 blade, all nonviable, infected, necrotic soft tissue and bone was debrided from right foot using 15 blade and as noted below. Next using a Tubbs elevator the soft tissues were reflected off of the first, second, third, fourth, and fifth metatarsals. Then using a powered sagittal saw, osteotomies were made through the shafts of the first, second, third, fourth, and fifth metatarsals with care taken to preserve the parabola of the right foot. These osteotomies were made with a slight bevel from dorsal distal and plantar proximal. The first metatarsal was beveled medially, and the 5th metatarsal was beveled laterally. The bone at this level appeared white, hard, viable, bleeding, with normal healthy appearing cortical bone and marrow cavity, however distally was nonviable, yellow and soft consistent with osteomyelitis. At this time using a #15 scalpel blade the soft tissue attachments to the distal right forefoot were removed. The right forefoot was then removed as passed from the surgical field and sent as a specimen to pathology. There was also noted to be a chronic abscess to the site distally, which was excised. All tendons were cut proximal to the surgical wound. The remaining soft tissues and metatarsals to the right foot appeared healthy, viable, clean, hard, bleeding, free of infection. A clearance fragment was obtained from the 1st, 2nd, 3rd, 4th and 5th metatarsal shafts - sent to both pathology and microbiology. This bone did appear healthy, viable and free of infection at this level. The site was flushed with copious amount of normal saline solution. The site was left open (due to infection and there was no viable skin to serve as a flap at this time due to the extent of the infection and nonviable tissue). At this time a surgical dressing of 4x4 gauze, surgicel, Kerlix, abd pads, and kieran wrap were applied to the right foot. Tight ankle pneumatic tourniquet was deflated and there was return of warmth and perfusion to the foot. The patient tolerated the above procedure and anesthesia well with no complications. Patient was transported to the recovery Room with vital signs stable and in good condition. Post operative orders were placed. No weightbearing right foot, keep right foot elevated. Postoperative xrays of the right foot were obtained and reviewed- s/p TMA with a maintained metatarsal parabola, no complications seen. Post-op instructions were reviewed. Patient to be discharged back to her room on the hospital floor and will be followed as inpatient. With patient's consent this was reviewed with patient's family who was with patient today - this included patient's mother, patient's niece, and sister. Grafts/Implants Used: None - Complications None
--- NOTE | 2018-09-26 18:52 | PCM.CONS.GEN ---
Reason for Consult Date of Consultation: 09/26/18 Reason for Consultation: Worsening right foot infection History of Present Illness: The patient is a 58 year old female with multiple medical problems including uncontrolled diabetes s/p debridement right foot polymicrobial infection last week presented to ER today for worsening right foot infection, toes turning dark, and gas noted on xrays. Patient has a left shift, but no leukocytosis. Patient was admitted for further evaluation and management. She has been on IV antibiotics per Infectious Disease. Patient has been at shelter, and nurse noticed worsening of foot and patient was brought to the ER. ESR and CRP elevated. No fevers noted. Past Medical History Past Medical History (Chronic Problems): Chronic Problems DM type 2 (diabetes mellitus, type 2) (Chronic) Hypertension (Chronic) Hyperlipidemia (Chronic) Gas gangrene (Chronic) Abscess of right foot (Chronic) History of PAD (Chronic) Osteomyelitis of foot, right, acute (Chronic) PAD (peripheral artery disease) (Chronic) Gangrene of toe of right foot (Chronic) Allergies orange juice Adverse Reaction (Verified 09/26/18 15:53) Diarrhea Home Medications: Ambulatory Orders Medication Instructions Recorded Aspirin [Aspirin, Baby] 81 mg PO DAILY@0800 12/27/15 Atorvastatin Calcium 40 mg PO QHS 09/18/18 Cholecalciferol (VIT D3) [Vitamin 1,000 unit PO DAILY 09/18/18 D3] Clopidogrel Bisulfate [Clopidogrel] 75 mg PO DAILY 09/18/18 Glimepiride 4 mg PO DAILY 09/18/18 Lisinopril 2.5 mg PO DAILY 09/18/18 metFORMIN HCl [Glucophage] 1,000 mg PO BIDCM 09/18/18 Acetaminophen 650 mg PO Q4H PRN PRN 09/26/18 Acetaminophen [Tylenol] 650 mg RECTAL Q4H PRN PRN 09/26/18 Ascorbic Acid [Vitamin C] 500 mg PO DAILY 09/26/18 Bisacodyl [Laxative Suppository] 10 mg ID DAILY PRN PRN 09/26/18 Ceftriaxone 2 gm IV 1700 09/26/18 Dextrose [Glucose Gel] 38 gm PO PRN PRN 09/26/18 Glucagon,Human Recombinant 1 mg IJ PRN PRN 09/26/18 [Glucagon Emergency Kit] Guaifenesin [Robitussin] 10 ml PO Q4H PRN PRN 09/26/18 Mag Hydrox/Aluminum Hyd/Simeth 30 ml PO Q4H PRN PRN 09/26/18 [Antacid Liquid] Magnesium Hydroxide [Milk Of 30 ml PO DAILY PRN PRN 09/26/18 Magnesia] Multivit,Stress Formula/Zinc 1 ea PO BID 09/26/18 [Stress Formula with Zinc Tab] Multivit,Tx with Iron,Minerals 1 ea PO DAILY 09/26/18 [Thera-M] Na Phos,M-B/Na Phos,Di-Ba [Fleet 120 ml RECTAL DAILY PRN PRN 09/26/18 Enema] Nutritional Supplement [Garland - 1 packet PO BIDCM 09/26/18 ORANGE FLAVOR] Vancomycin/0.9 % Sod Chloride 1.5 gm IV Q12H 09/26/18 [Vanco 1.5 gm/250 ml-0.9% NaCl] metroNIDAZOLE [Flagyl] 500 mg PO TID 09/26/18 Surgical History: no surgical history Lives: [facility] Smoking Status: Former smoker Tobacco Use: Cigarettes Alcohol: None Drugs: None - *Family History Maternal History Items: Cancer Paternal History Items: Heart Disease - Physical Exam General: Alert, Oriented x3, Cooperative, No apparent distress Extremities: Capillary Refill Less than 3 Seconds, No Calf Tenderness, - - Right foot with necrotic 4th toe, necrosis to 5th toe, also nonviable 1st metatarsal bone exposed, there is extensive necrotic nonviable soft tissue to the plantar foot with purulence present, there is crepitus noted to the plantar forefoot, there is some maloder, there is some cellulitis and edema. There is bulla formation dorsal forefoot on the right. No breakdown or involvement noted to the heel or ankle, right. Sensation significantly diminished to the right foot c/w peripheral neuropathy. Right foot xrays reviewed from today and noted to have soft tissue gas to the forefoot. Psych/Mental Status: Alert and oriented to time, place, person, mood and affect Vital Signs Temp Pulse Resp BP Pulse Ox 98.4 F 80 16 140/83 H 96 09/26/18 15:46 09/26/18 15:46 09/26/18 15:46 09/26/18 15:46 09/26/18 15:46 Oxygen Delivery Method Room Air Weight: 66.27 kg Body Mass Index (BMI) 25.0 Finger Stick Blood Glucose 401 Laboratory Tests Past 24 Hrs 09/26/18 09/26/18 09/26/18 12:25 12:25 12:25 WBC 8.7 RBC 3.17 L Hgb 8.2 L Hct 26.4 L MCV 83.3 MCH 25.9 L MCHC 31.1 L RDW Std Deviation 41.2 RDW Coeff of Nuno 13.7 Plt Count 389 MPV 9.2 Immature Gran % (Auto) 1.100 H Neut % (Auto) 76.7 H Lymph % (Auto) 13.7 L [place] % (Auto) 5.4 Eos % (Auto) 2.6 Baso % (Auto) 0.5 Absolute Neuts (auto) 6.7 Absolute Lymphs (auto) 1.19 Absolute Nucleated RBC 0.00 Nucleated RBC % 0 ESR 79 H Sodium 142 Potassium 3.6 Chloride 109 H Carbon Dioxide 27.0 Anion Gap 6 BUN 16 Creatinine 0.65 Estim Creat Clear Calc 79.48 Est GFR (MDRD) Af Amer 120 Est GFR (MDRD) Non-Af 99 BUN/Creatinine Ratio 24.8 H Glucose 135 H Lactic Acid 1.4 Calcium 8.2 L Total Bilirubin 0.30 AST 14 L ALT 19 Alkaline Phosphatase 100 C-React Prot Ext Range 17.50 H Total Protein 5.8 L Albumin 1.9 L Globulin 3.9 Albumin/Globulin Ratio 0.5 L POC Glucose 09/26/18 16:05 POC Glucose 88 Assessment/Plan All Active Problems Osteomyelitis (Acute) Necrosis of toe (Acute) Osteomyelitis of right foot (Acute) Type 2 diabetes mellitus with diabetic polyneuropathy (Acute) Cellulitis of right foot (Resolved) Necrotizing infection right foot with gangrene and gas in tissues Abscess right foot Osteomyelitis right foot Uncontrolled diabetes with peripheral neuropathy Reviewed findings with patient and her daughter who was with patient. Given findings debridement of all nonviable, infected, necrotic soft tissue and bone, with TMA recommended. This is due to the extent of the infection and current status of foot. This was discussed with them in great detail, reviewed the rationale of this, as well as the possible benefits vs risks, goals, expectations, and all alternative options. Advised them patient is ultimately at high risk for limb loss. Advised patient this will take a very long time to heal if it even heals at all. Again patient at very high risk of ultimate limb loss. Reviewed importance of proper blood sugar control to help optimize healing. Patient expressed understanding and agreement, as well as her daughter did too. We will plan to proceed with this this evening. The consent form was reviewed with patient and she freely signed it. No guarantees were given nor implied. Patient on IV antibiotic therapy, ID service has been consulted. Diabetes and further medical management per the medicine team.
[2018-09-26 19:01] LABS: Bedside Glucose 71 mg/dL (70-110)
--- NOTE | 2018-09-26 19:10 | RAD_ITS ---
STUDY: X-RAY - RIGHT FOOT CLINICAL: Female, 58 years old. Postop TECHNIQUE: 3 view(s) of the foot. COMPARISON: September 26, 2018 FINDINGS: Postsurgical changes status post amputation of the toes through the distal metatarsal shafts. There is edematous change at the operative sites. RAD/Foot min 3 Views IMPRESSION: Status post amputation of the toes through the distal metatarsal shafts Electronically Signed: Jerel Maya MD at 19:29 EDT , Service support ,
[2018-09-26 19:21] LABS: Bedside Glucose 123 mg/dL (70-110)
--- NOTE | 2018-09-26 19:39 | NURSING ---
Upon arrival to unit on MS3 this RN entered room- entered and stood on opposite side of bed as this RN. states, why is the floor all wet? This RN looked on floor and observed IV tubing disconnected from patient and laying of floor- vancomycin running. Keena Collins entered room immediately after this RN observed situation. Showed Keena issue and was ordered to change IV tubing and infuse remaining fluid in bag. (roughly 100cc).
[2018-09-26 22:49] LABS: Vancomycin, Random Level 19.7 ug/mL (0.0-15.0)
[2018-09-26] MEDS: Atorvastatin Calcium 40 MG Tablet PO (22:51)
[2018-09-26] MEDS: oxyCODONE 5 MG Tablet PO (22:52)
[2018-09-26 23:01] LABS: Bedside Glucose 110 mg/dL (70-110)
--- NOTE | 2018-09-26 23:51 | PCM.RX.CS ---
Consult Pharmacy has been consulted to manage selected antiobiotic: Vancomycin Type of Consult: New start Suspected Infection: Osteomyelitis Labs: Sodium 142 mmol/L (136-145) 09/26/18 12:25 Potassium 3.6 mmol/L (3.5-5.1) 09/26/18 12:25 Chloride 109 mmol/L (98-107) H 09/26/18 12:25 Carbon Dioxide 27.0 mmol/L (21.0-32.0) 09/26/18 12:25 6 (5-15) 09/26/18 12:25 BUN 16 mg/dL (7-18) 09/26/18 12:25 0.65 mg/dL (0.55-1.02) 09/26/18 12:25 Est GFR (MDRD) Af Amer 120 mL/min (>60) 09/26/18 12:25 Est GFR (MDRD) Non-Af 99 mL/min (>60) 09/26/18 12:25 24.8 RATIO (10-20) H 09/26/18 12:25 Glucose 135 mg/dL (74-106) H 09/26/18 12:25 Random Vancomycin 19.7 ug/mL (0.0-15.0) H 09/26/18 22:10 Goal Trough: 15-20 mcg/mL Pharmacy Plan for Drug Dosing: Pharmacy Service will continue to monitor and adjust dosing as required. Medications Vancomycin HCl 1,500 mg/ (Sodium Chloride) 530 mls @ 250 mls/hr IV Q12H [facility] Follow-Up Labs: Trough Vancomycin Labs to be done on [date and time ordered]: 09/28 @ 1200
[2018-09-27] MEDS: Morphine 2 MG/ML Syringe IV (01:17)
[2018-09-27 02:03] VITALS: BP 123/61; PULSE 67; RESP 18; TEMP 37; O2SAT 99
[2018-09-27 05:55] LABS: Absolute Lymphocyte Count 0.97 X10^3/uL (0.83-4.51); Absolute Neutrophil Count 8.1 X10^3/uL (2.0-7.7); Basophil# 0.01 X10^3/uL; Basophil% 0.1 % (0-1); Eosinophil# 0.18 X10^3/uL; Eosinophils% 1.8 % (0-5); Hematocrit 24.2 % (37-47); Hemoglobin 7.6 g/dL (12.0-15.0); Lymphocyte # 0.97 X10^3/ul (4.0); Lymphocyte % 9.9 % (19-41); Mean Corp Hgb Conc 31.4 g/dL (32-36); Mean Corpuscular Hgb 26.6 pg (27.0-32.0); Mean Corpuscular Volume 84.6 fL (81-99); Mean Platelet Vol. 8.7 fl (6.2-12.0); Monocyte# 0.56 X10^3/uL; Monocyte% 5.7 % (0-10); NRBC Flagged by Analyzer 0 % (0-5); Neutrophil # 8.05 X10^3/uL (2.7-7.7); Neutrophil % 81.8 % (47-70); Platelet Count 333 K/mm3 (150-450); RBC Distribution Width CV 13.7 % (11.6-14.6); RBC Distribution Width SD 41.7 fl (35.1-43.9); Red Blood Count 2.86 M/mm3 (4.2-5.4); White Blood Count 9.8 K/mm3 (4.4-11.0)
[2018-09-27 06:10] LABS: Anion Gap 4 (5-15); BUN 12 mg/dL (7-18); BUN/Creat Ratio 21.9 RATIO (10-20); Calcium,Total 7.7 mg/dL (8.5-10.1); Chloride 108 mmol/L (98-107); Creatinine, Serum 0.55 mg/dL (0.55-1.02); EST Glomerular Filtration Rate 121 mL/min (>60); Est Glom Filt Rate - Afr Amer 146 mL/min (>60); Estimated Creatinine Clearance 93.93 ml/min; Glucose 65 mg/dL (74-106); Potassium 3.1 mmol/L (3.5-5.1); Sodium Level 140 mmol/L (136-145)
[2018-09-27 06:55] LABS: Bedside Glucose 101 mg/dL (70-110)
[2018-09-27 07:11] LABS: Bedside Glucose 61 mg/dL (70-110)
[2018-09-27 07:11] LABS: Bedside Glucose 55 mg/dL (70-110)
[2018-09-27 08:04] VITALS: O2SAT 96
[2018-09-27 09:36] VITALS: BP 151/71; PULSE 86; RESP 16; TEMP 37.1; O2SAT 97
[2018-09-27] MEDS: Lisinopril 2.5 MG Tablet PO (09:41)
[2018-09-27] MEDS: oxyCODONE 5 MG Tablet PO ×2 (09:41→16:40)
[2018-09-27 09:42] LABS: Ferritin 253 ng/mL (8-252); Iron 18 ug/dL (50-170); Iron Binding Capacity,Total 116 ug/dL (250-450); PERCENT IRON SATURATION 15.5 % (15.0-55.0)
[2018-09-27] MEDS: Multivitamins,Ther W-Minerals Tablet 1 TABLET PO (09:42)
[2018-09-27] MEDS: Ascorbic Acid 500 MG Tablet PO (09:42)
[2018-09-27] MEDS: Enoxaparin 40 MG/0.4 ML Syringe SC (09:42)
[2018-09-27] MEDS: Aspirin 81 MG TAB.CHEW PO (09:42)
[2018-09-27] MEDS: 0.9% NaCl PICC Flush IV (09:57)
--- NOTE | 2018-09-27 09:59 | CASEMGMT ---
Addendum entered by Maddie Mcneill 09/27/18 11:11: SW received call from Alyssa at [facility] confirming pt was admitted from [facility] and pt will need pre-cert to return. Original Note: Social Work Note SW familiar with pt as pt was discharged to [facility] last week. SW placed a call to Alyssa at [facility] and left message for Alyssa to call this worker back. SW to continue to follow. Maddie Mcneill M[employer]ICKER, [employer] [employer] [employer]
[2018-09-27 10:55] LABS: Vitamin B12 454 pg/mL (211-911)
--- NOTE | 2018-09-27 11:11 | PN_ITS ---
Subjective: Chief complaint: Follow-up after admission for right foot osteomyelitis/abscess/gangrene debridement of all nonviable soft tissue and bone of the right foot with transmetatarsal amputation. Patient seen and examined. No acute events overnight. She complains of right foot pain. Denies chest pain or shortness of breath. Her vital signs are sta ble. - Physical Exam General: Alert, Oriented x3, Cooperative, No apparent distress HEENT: Atraumatic, PERRLA, EOMI, Normocephalic Oral: Moist Mucosa, No Gingival or Mucosal Lesions/ Ulcerations Neck: Supple, No JVD, Negative Carotid Bruits, Trachea Midline, Thyroid Normal Size and Texture Lungs: Clear to auscultation, Normal air movement, No rhonchi, No rales, Diminished Cardiovascular: Regular rate, Regular Rhythm, Normal S1, Normal S2, No murmurs, PMI Normal Abdomen: Bowel Sounds Present, Soft, Non Tender, Non-Distended, No Hepato- splenomegaly Extremities: No clubbing, No cyanosis, No edema Skin: No rashes, Ulcer/ Wound Lymphatic: No Cervical, Supraclavicular, or Inguinal Adenopathy Neurological: Cranial nerves II-XII grossly intact, Motor Exam 5/5 strength throughout Psych/Mental Status: Normal Affect, Appropriate, Alert and oriented to time, place, person, mood and affect Vital Signs Temp Pulse Resp BP Pulse Ox 98.7 F 86 16 151/71 H 97 09/27/18 09:36 09/27/18 09:36 09/27/18 09:36 09/27/18 09:36 09/27/18 09:36 Oxygen Flow Rate (L/min) 2 Oxygen Delivery Method Room Air Weight: 146 lb 1.6 oz Body Mass Index (BMI) 25.0 Finger Stick Blood Glucose 401 Intake and Output for Last 24 Hours 09/25/18 09/26/18 09/27/18 23:59 23:59 23:59 Intake Total 1100 / 1100 2420 / 2420 Output Total Balance 1100 / 1100 2419 / 2419 Microbiology Past 72 Hours 09/26/18 19:19 Gram Stain - Final Abs - Right Foot 09/26/18 19:19 Gram Stain - Final Biopsy - Bone 09/26/18 19:19 Gram Stain - Final Biopsy - Bone 09/26/18 19:19 Gram Stain - Final Biopsy - Bone 09/26/18 19:19 Gram Stain - Final Biopsy - Bone 09/26/18 19:19 Gram Stain - Final Biopsy - Bone Laboratory Tests Past 24 Hrs 09/26/18 09/26/18 09/26/18 12:25 12:25 12:25 WBC 8.7 RBC 3.17 L Hgb 8.2 L Hct 26.4 L MCV 83.3 MCH 25.9 L MCHC 31.1 L RDW Std Deviation 41.2 RDW Coeff of Nuno 13.7 Plt Count 389 MPV 9.2 Immature Gran % (Auto) 1.100 H Neut % (Auto) 76.7 H Lymph % (Auto) 13.7 L [place] % (Auto) 5.4 Eos % (Auto) 2.6 Baso % (Auto) 0.5 Absolute Neuts (auto) 6.7 Absolute Lymphs (auto) 1.19 Absolute Nucleated RBC 0.00 Nucleated RBC % 0 ESR 79 H Sodium 142 Potassium 3.6 Chloride 109 H Carbon Dioxide 27.0 Anion Gap 6 BUN 16 Creatinine 0.65 Estim Creat Clear Calc 79.48 Est GFR (MDRD) Af Amer 120 Est GFR (MDRD) Non-Af 99 BUN/Creatinine Ratio 24.8 H Glucose 135 H Lactic Acid 1.4 Calcium 8.2 L Iron TIBC Iron Saturation Ferritin Total Bilirubin 0.30 AST 14 L ALT 19 Alkaline Phosphatase 100 C-React Prot Ext Range 17.50 H Total Protein 5.8 L Albumin 1.9 L Globulin 3.9 Albumin/Globulin Ratio 0.5 L Vitamin B12 RBC Folate Hemolysate RBC Folate Hematocrit Random Vancomycin 09/26/18 09/27/18 09/27/18 22:10 05:45 05:45 WBC 9.8 RBC 2.86 L Hgb 7.6 L Hct 24.2 L MCV 84.6 MCH 26.6 L MCHC 31.4 L RDW Std Deviation 41.7 RDW Coeff of Nuno 13.7 Plt Count 333 MPV 8.7 Immature Gran % (Auto) 0.700 Neut % (Auto) 81.8 H Lymph % (Auto) 9.9 L [place] % (Auto) 5.7 Eos % (Auto) 1.8 Baso % (Auto) 0.1 Absolute Neuts (auto) 8.1 H Absolute Lymphs (auto) 0.97 Absolute Nucleated RBC 0.00 Nucleated RBC % 0 ESR Sodium 140 Potassium 3.1 L Chloride 108 H Carbon Dioxide 28.0 Anion Gap 4 L BUN 12 Creatinine 0.55 Estim Creat Clear Calc 93.93 Est GFR (MDRD) Af Amer 146 Est GFR (MDRD) Non-Af 121 BUN/Creatinine Ratio 21.9 H Glucose 65 L Lactic Acid Calcium 7.7 L Iron TIBC Iron Saturation Ferritin Total Bilirubin AST ALT Alkaline Phosphatase C-React Prot Ext Range Total Protein Albumin Globulin Albumin/Globulin Ratio Vitamin B12 RBC Folate Hemolysate RBC Folate Hematocrit Random Vancomycin 19.7 H 09/27/18 09/27/18 09/27/18 05:45 10:00 10:00 WBC RBC Hgb Hct MCV MCH MCHC RDW Std Deviation RDW Coeff of Nuno Plt Count MPV Immature Gran % (Auto) Neut % (Auto) Lymph % (Auto) [place] % (Auto) Eos % (Auto) Baso % (Auto) Absolute Neuts (auto) Absolute Lymphs (auto) Absolute Nucleated RBC Nucleated RBC % ESR Sodium Potassium Chloride Carbon Dioxide Anion Gap BUN Creatinine Estim Creat Clear Calc Est GFR (MDRD) Af Amer Est GFR (MDRD) Non-Af BUN/Creatinine Ratio Glucose Lactic Acid Calcium Iron 18 L TIBC 116 L Iron Saturation 15.5 Ferritin 253 H Total Bilirubin AST ALT Alkaline Phosphatase C-React Prot Ext Range Total Protein Albumin Globulin Albumin/Globulin Ratio Vitamin B12 454 RBC Folate Hemolysate Pending RBC Folate Pending Hematocrit Pending Random Vancomycin POC Glucose 09/27/18 09/27/18 09/27/18 06:47 06:26 06:24 POC Glucose 101 61 L 55 L 09/26/18 09/26/18 09/26/18 22:49 19:16 18:58 POC Glucose 110 123 H 71 09/26/18 16:05 POC Glucose 88 Clinical Impression(s) from Imaging Studies Foot X-Ray 09/26/18 12:06 IMPRESSION: No demonstrated fracture or erosive osseous lesion. Subcutaneous emphysema noted around the proximal phalanx of the second toe and the distal aspect of the third metatarsal suggesting inflammatory process such as osteomyelitis Calcaneal spurs Electronically Signed: Evelio Denney MD at 12:49 EDT , Service support , Foot X-Ray 09/26/18 19:10 IMPRESSION: Status post amputation of the toes through the distal metatarsal shafts Electronically Signed: Jerel Maya MD at 19:29 EDT , Service support , Medical Necessity - Tobacco Use Smoking Status: Former smoker Tobacco Use: Cigarettes Assessment/Plan All Active Problems Osteomyelitis (Acute) Necrosis of toe (Acute) Osteomyelitis of right foot (Acute) This is a 58 years old female patient was sent from the detention to the ED for nonhealing right foot wound and black ulceration of the toes of the right foot, found to have osteomyelitis of the right foot with abscess, gangrene and nonhealing necrotic ulcer status post debridement of all nonviable, infected and necrotic soft tissue and bone as well as transmetatarsal amputation. #1 acute right foot osteomyelitis/abscess/necrotizing fasciitis/gangrene with nonhealing ulcer: Status post debridement of all nonviable and infected tissues and bone, status post bone biopsy and transmetatarsal amputation. Postoperative day 1. She is on IV vancomycin and Zosyn. Wound cultures are pending. Vital signs are stable, afebrile, no leukocytosis. Patient was admitted around 1 week ago for the same problem, wound culture revealed MRSA, Proteus mirabilis, Providencia stuartii and Corynebacterium and she was discharged on IV Rocephin and Flagyl as well as IV vancomycin. Infectious disease consulted. Podiatry medicine on the case and they are managing. #2 anemia: It is fairly acute, hemoglobin has been dropping since the beginning of this month and previously, it was normal. It is iron deficiency anemia. Patient denies any bleeding from body orifices. Today's hemogram is 7.6 g/dL. No indication for transfusion. Plan: Stool for occult blood, start iron supplements, repeat CBC tomorrow morning. If hemoglobin continues to drop tomorrow, will transfuse 1 unit of packed RBCs. #3 hypokalemia: We will give 1 dose of K. Dur p.o. 60 mEq x 1, repeat BMP tomorrow morning. #4 type 2 diabetes mellitus: She is on insulin sliding scale. Blood sugar has been under fair control. Glimepiride and metformin held. #5 Hypertension: Blood pressure stable, continue lisinopril. #6 hyperlipidemia: Continue statins. #7 peripheral vascular disease: Continue aspirin, statins and Plavix. #8 DVT prophylaxis: Subcu Lovenox. This note was generated with [employer] dictation software. It may contain incorrect words, spelling, and punctuation that were not noted in checking the note before signing. Code Visit Inpatient E&M: 37576 Subs Hosp L2
[2018-09-27 11:31] VITALS: BP 108/74; PULSE 72; RESP 16; TEMP 37.1; O2SAT 95
[2018-09-27 11:35] LABS: Bedside Glucose 178 mg/dL (70-110)
[2018-09-27] MEDS: Insulin Lispro 100 UNIT/ML INSULN.PEN SC ×3 (11:38→21:54)
--- NOTE | 2018-09-27 12:00 | PCM.HP.ID ---
Problem List (1) Osteomyelitis Status: Acute Reason for Consult: osteo Consulted by: Dr. Mckinney History of Present Illness: The patient is a 58 year old F with DM neuropathy, recent admit for R foot osteo, taken to OR for I&D by Dr. Blanco, discharged on iv vanc, ceftriaxone, and po flagyl. At [facility] over past few days, toes turned black, mild pain and redness. Denies fever or chills, no n/v/d. Taken to ED, given vanc/zosyn, taken to OR for R foot TMA by Dr. Cardona. Now feeling ok, denies any pain. Full ROS performed and neg except as noted above. - Medical History Past Medical History (Chronic Problems): Chronic Problems DM type 2 (diabetes mellitus, type 2) (Chronic) Hypertension (Chronic) Hyperlipidemia (Chronic) Gas gangrene (Chronic) Type 2 diabetes mellitus with diabetic polyneuropathy (Chronic) Abscess of right foot (Chronic) History of PAD (Chronic) Osteomyelitis of foot, right, acute (Chronic) PAD (peripheral artery disease) (Chronic) Gangrene of toe of right foot (Chronic) Allergies/Adverse Reactions: Allergies orange juice Adverse Reaction (Verified 09/26/18 15:53) Diarrhea Home Medications: Ambulatory Orders Medication Instructions Recorded Aspirin [Aspirin, Baby] 81 mg PO DAILY@0800 12/27/15 Atorvastatin Calcium 40 mg PO QHS 09/18/18 Cholecalciferol (VIT D3) [Vitamin 1,000 unit PO DAILY 09/18/18 D3] Clopidogrel Bisulfate [Clopidogrel] 75 mg PO DAILY 09/18/18 Glimepiride 4 mg PO DAILY 09/18/18 Lisinopril 2.5 mg PO DAILY 09/18/18 metFORMIN HCl [Glucophage] 1,000 mg PO BIDCM 09/18/18 Acetaminophen 650 mg PO Q4H PRN PRN 09/26/18 Acetaminophen [Tylenol] 650 mg RECTAL Q4H PRN PRN 09/26/18 Ascorbic Acid [Vitamin C] 500 mg PO DAILY 09/26/18 Bisacodyl [Laxative Suppository] 10 mg [place] DAILY PRN PRN 09/26/18 Ceftriaxone 2 gm IV 1700 09/26/18 Dextrose [Glucose Gel] 38 gm PO PRN PRN 09/26/18 Glucagon,Human Recombinant 1 mg IJ PRN PRN 09/26/18 [Glucagon Emergency Kit] Guaifenesin [Robitussin] 10 ml PO Q4H PRN PRN 09/26/18 Mag Hydrox/Aluminum Hyd/Simeth 30 ml PO Q4H PRN PRN 09/26/18 [Antacid Liquid] Magnesium Hydroxide [Milk Of 30 ml PO DAILY PRN PRN 09/26/18 Magnesia] Multivit,Stress Formula/Zinc 1 ea PO BID 09/26/18 [Stress Formula with Zinc Tab] Multivit,Tx with Iron,Minerals 1 ea PO DAILY 09/26/18 [Thera-M] Na Phos,M-B/Na Phos,Di-Ba [Fleet 120 ml RECTAL DAILY PRN PRN 09/26/18 Enema] Nutritional Supplement [[place] - 1 packet PO BIDCM 09/26/18 ORANGE FLAVOR] Vancomycin/0.9 % Sod Chloride 1.5 gm IV Q12H 09/26/18 [Vanco 1.5 gm/250 ml-0.9% NaCl] metroNIDAZOLE [Flagyl] 500 mg PO TID 09/26/18 - Social History SMOKING STATUS:: Former smoker Vital Signs Temp Pulse Resp BP Pulse Ox 98.8 F 72 16 108/74 95 09/27/18 11:31 09/27/18 11:31 09/27/18 11:31 09/27/18 11:31 09/27/18 11:31 Oxygen Flow Rate (L/min) 2 Oxygen Delivery Method Room Air Weight: 66.27 kg Body Mass Index (BMI) 25.0 Finger Stick Blood Glucose 401 Microbiology Past 72 Hours 09/26/18 19:19 Gram Stain - Final Abs - Right Foot 09/26/18 19:19 Gram Stain - Final Biopsy - Bone 09/26/18 19:19 Gram Stain - Final Biopsy - Bone 09/26/18 19:19 Gram Stain - Final Biopsy - Bone 09/26/18 19:19 Gram Stain - Final Biopsy - Bone 09/26/18 19:19 Gram Stain - Final Biopsy - Bone Laboratory Tests Past 24 Hrs 09/26/18 09/26/18 09/26/18 12:25 12:25 12:25 WBC 8.7 RBC 3.17 L Hgb 8.2 L Hct 26.4 L MCV 83.3 MCH 25.9 L MCHC 31.1 L RDW Std Deviation 41.2 RDW Coeff of Nuno 13.7 Plt Count 389 MPV 9.2 Immature Gran % (Auto) 1.100 H Neut % (Auto) 76.7 H Lymph % (Auto) 13.7 L [place] % (Auto) 5.4 Eos % (Auto) 2.6 Baso % (Auto) 0.5 Absolute Neuts (auto) 6.7 Absolute Lymphs (auto) 1.19 Absolute Nucleated RBC 0.00 Nucleated RBC % 0 ESR 79 H Sodium 142 Potassium 3.6 Chloride 109 H Carbon Dioxide 27.0 Anion Gap 6 BUN 16 Creatinine 0.65 Estim Creat Clear Calc 79.48 Est GFR (MDRD) Af Amer 120 Est GFR (MDRD) Non-Af 99 BUN/Creatinine Ratio 24.8 H Glucose 135 H Lactic Acid 1.4 Calcium 8.2 L Iron TIBC Iron Saturation Ferritin Total Bilirubin 0.30 AST 14 L ALT 19 Alkaline Phosphatase 100 C-React Prot Ext Range 17.50 H Total Protein 5.8 L Albumin 1.9 L Globulin 3.9 Albumin/Globulin Ratio 0.5 L Vitamin B12 RBC Folate Hemolysate RBC Folate Hematocrit Random Vancomycin 09/26/18 09/27/18 09/27/18 22:10 05:45 05:45 WBC 9.8 RBC 2.86 L Hgb 7.6 L Hct 24.2 L MCV 84.6 MCH 26.6 L MCHC 31.4 L RDW Std Deviation 41.7 RDW Coeff of Nuno 13.7 Plt Count 333 MPV 8.7 Immature Gran % (Auto) 0.700 Neut % (Auto) 81.8 H Lymph % (Auto) 9.9 L [place] % (Auto) 5.7 Eos % (Auto) 1.8 Baso % (Auto) 0.1 Absolute Neuts (auto) 8.1 H Absolute Lymphs (auto) 0.97 Absolute Nucleated RBC 0.00 Nucleated RBC % 0 ESR Sodium 140 Potassium 3.1 L Chloride 108 H Carbon Dioxide 28.0 Anion Gap 4 L BUN 12 Creatinine 0.55 Estim Creat Clear Calc 93.93 Est GFR (MDRD) Af Amer 146 Est GFR (MDRD) Non-Af 121 BUN/Creatinine Ratio 21.9 H Glucose 65 L Lactic Acid Calcium 7.7 L Iron TIBC Iron Saturation Ferritin Total Bilirubin AST ALT Alkaline Phosphatase C-React Prot Ext Range Total Protein Albumin Globulin Albumin/Globulin Ratio Vitamin B12 RBC Folate Hemolysate RBC Folate Hematocrit Random Vancomycin 19.7 H 09/27/18 09/27/18 09/27/18 05:45 10:00 10:00 WBC RBC Hgb Hct MCV MCH MCHC RDW Std Deviation RDW Coeff of Nuno Plt Count MPV Immature Gran % (Auto) Neut % (Auto) Lymph % (Auto) [place] % (Auto) Eos % (Auto) Baso % (Auto) Absolute Neuts (auto) Absolute Lymphs (auto) Absolute Nucleated RBC Nucleated RBC % ESR Sodium Potassium Chloride Carbon Dioxide Anion Gap BUN Creatinine Estim Creat Clear Calc Est GFR (MDRD) Af Amer Est GFR (MDRD) Non-Af BUN/Creatinine Ratio Glucose Lactic Acid Calcium Iron 18 L TIBC 116 L Iron Saturation 15.5 Ferritin 253 H Total Bilirubin AST ALT Alkaline Phosphatase C-React Prot Ext Range Total Protein Albumin Globulin Albumin/Globulin Ratio Vitamin B12 454 RBC Folate Hemolysate Pending RBC Folate Pending Hematocrit Pending Random Vancomycin - Other Studies Radiology: [] reviewed Other Studies: [] Route of nutrition/ use of supplements: [] Nutritional Intake: [] IV Site: [] Robles Catheter: [] - Physical Exam General: Alert, Oriented x3, Cooperative, No apparent distress HEENT: Atraumatic, PERRLA, EOMI Neck: Supple, No Nodes Lungs: Clear to auscultation, Normal air movement Cardiovascular: Regular rate, Regular Rhythm Abdomen: Soft, Non Tender, Non-Distended Skin: Incision - R foot wrapped IV Site: PICC Musculoskeletal: No Tenderness to Palpation of Joints or Extremities Neurological: Cranial nerves II-XII grossly intact - Assessment/Plan Antibiotics: [] Assessment/Plan: [] R foot nec fasc, osteo - now s/p TMA by Dr. Cardona. Surg cx pending. On vanc/zosyn for broad empiric coverage. Will follow, thank you.
--- NOTE | 2018-09-27 12:07 | NURSING ---
Leaving surgical dressing to right foot in place until patient is seen by Dr Cardona. will attempt to get wound photos when podiatry comes to assess wound. there is some old dried drainage noted on the JOSE wrap. will continue to follow.
[2018-09-27 12:35] LABS: International Normalized Ratio 1.4
--- NOTE | 2018-09-27 12:47 | CASEMGMT ---
JOSSELYN CM Readmission Note Previous Admission: 09/18-09/21/18 Diagnosis: R Toe Osteomyelitis with necrosis. 09/18/18-Surgical I/D and Debridement of infected soft tissue and bone. DC Disposition: [facility]. IV Ceftriaxone 2 gm IV Q 24 hours x 40 days, Metronidazole 500 mg po TID x 40 days, Vancomycin 1.5 gm IV Q 12 hours x 40 days Current Admission Presentation: Osteomyelitis abscess, necrotizing fasciitis, gangrene. 09/26/18 Debridement , transmetataral amputation Right Foot. PCP: Dr. Guerra Specialist: Dr. Blanco, podiatry, Dr. Beth, [place] Plan: Vancomycin 1500 mg IV Q 12 hours, Zosyn 3.375 gm IV Q 8 hrs, Oxyir for pain control. DC PLAN: [facility] for return to [facility] on dc/ precertification will be needed prior to dc. Gentry BROWN RN ACM
[2018-09-27 14:11] VITALS: BP 123/65; PULSE 75; RESP 16; TEMP 37.1; O2SAT 95
--- NOTE | 2018-09-27 14:47 | NURSING ---
Assisted patient to the [facility]. pt was able to hop on left foot with walker. patient did not put any weight on the right foot. patient's mother states that Dr Cardona plans on coming in later this pm to see patient. states he had talked with her after surgery last evening. dressing remains intact with some dry bloody drainage noted on the JOSE wrap.
--- NOTE | 2018-09-27 15:26 | CASEMGMT ---
Social Work Note HAILE met with pt to confirm discharge plans. SW familiar with pt from previous visit last week. Pt's mother present in room. Pt gave this worker permission to speak to her in front of her guest. Pt confirms that she came from [facility] and her plan is to return. SW informed pt that pre-cert will be needed again. Pt states understanding. HAILE faxed referral to Alyssa at [facility] and wrote on fax cover sheet that she can submit for pre-cert tomorrow as cultures from surgery are pending. Plan: [facility] pending pre-cert Maddie Mcneill SWIM COACH, COMPUTER INSTALLER
[2018-09-27 16:40] LABS: Bedside Glucose 207 mg/dL (70-110)
[2018-09-27] MEDS: Glucerna Shake 120 ML LIQUID PO ×2 (16:40→21:52)
[2018-09-27] MEDS: Ferrous Sulfate 325 MG Tablet PO (16:40)
--- NOTE | 2018-09-27 17:23 | PN_ITS ---
Subjective: Patient was seen today for follow up on right foot, s/p debridement, she is resting comfortably in bed with no complaints with sister and niece at bedside. Patient with no complaints of fever, chills, nausea or vomiting. - Physical Exam General: Alert, Oriented x3, Cooperative, No apparent distress Extremities: No Calf Tenderness, - - s/p debridement right foot/open TMA with viable tissue, healthy in appearance, no maloder, no fluctuance, no crepitus, no visible abscess, no streaking, no purulence present. No evidence of complications at this time. Vital Signs Temp Pulse Resp BP Pulse Ox 98.7 F 75 16 123/65 H 95 09/27/18 14:11 09/27/18 14:11 09/27/18 14:11 09/27/18 14:11 09/27/18 14:11 Oxygen Flow Rate (L/min) 2 Oxygen Delivery Method Room Air Weight: 66.27 kg Body Mass Index (BMI) 25.0 Finger Stick Blood Glucose 401 Intake and Output for Last 24 Hours 09/25/18 09/26/18 09/27/18 23:59 23:59 23:59 Intake Total 1100 / 1100 2720 / 2720 Output Total Balance 1100 / 1100 2719 / 2719 Microbiology Past 72 Hours 09/26/18 19:19 Gram Stain - Final Abs - Right Foot 09/26/18 19:19 Gram Stain - Final Biopsy - Bone 09/26/18 19:19 Gram Stain - Final Biopsy - Bone 09/26/18 19:19 Gram Stain - Final Biopsy - Bone 09/26/18 19:19 Gram Stain - Final Biopsy - Bone 09/26/18 19:19 Gram Stain - Final Biopsy - Bone Laboratory Tests Past 24 Hrs 09/26/18 09/27/18 09/27/18 22:10 05:45 05:45 WBC 9.8 RBC 2.86 L Hgb 7.6 L Hct 24.2 L MCV 84.6 MCH 26.6 L MCHC 31.4 L RDW Std Deviation 41.7 RDW Coeff of Nuno 13.7 Plt Count 333 MPV 8.7 Immature Gran % (Auto) 0.700 Neut % (Auto) 81.8 H Lymph % (Auto) 9.9 L [place] % (Auto) 5.7 Eos % (Auto) 1.8 Baso % (Auto) 0.1 Absolute Neuts (auto) 8.1 H Absolute Lymphs (auto) 0.97 Absolute Nucleated RBC 0.00 Nucleated RBC % 0 PT INR Sodium 140 Potassium 3.1 L Chloride 108 H Carbon Dioxide 28.0 Anion Gap 4 L BUN 12 Creatinine 0.55 Estim Creat Clear Calc 93.93 Est GFR (MDRD) Af Amer 146 Est GFR (MDRD) Non-Af 121 BUN/Creatinine Ratio 21.9 H Glucose 65 L Calcium 7.7 L Iron TIBC Iron Saturation Ferritin Vitamin B12 RBC Folate Hemolysate RBC Folate Hematocrit Random Vancomycin 19.7 H 09/27/18 09/27/18 09/27/18 05:45 10:00 10:00 WBC RBC Hgb Hct MCV MCH MCHC RDW Std Deviation RDW Coeff of Nuno Plt Count MPV Immature Gran % (Auto) Neut % (Auto) Lymph % (Auto) [place] % (Auto) Eos % (Auto) Baso % (Auto) Absolute Neuts (auto) Absolute Lymphs (auto) Absolute Nucleated RBC Nucleated RBC % PT INR Sodium Potassium Chloride Carbon Dioxide Anion Gap BUN Creatinine Estim Creat Clear Calc Est GFR (MDRD) Af Amer Est GFR (MDRD) Non-Af BUN/Creatinine Ratio Glucose Calcium Iron 18 L TIBC 116 L Iron Saturation 15.5 Ferritin 253 H Vitamin B12 454 RBC Folate Hemolysate Pending RBC Folate Pending Hematocrit Pending Random Vancomycin 09/27/18 12:15 WBC RBC Hgb Hct MCV MCH MCHC RDW Std Deviation RDW Coeff of Nuno Plt Count MPV Immature Gran % (Auto) Neut % (Auto) Lymph % (Auto) [place] % (Auto) Eos % (Auto) Baso % (Auto) Absolute Neuts (auto) Absolute Lymphs (auto) Absolute Nucleated RBC Nucleated RBC % PT 17.0 H INR 1.4 Sodium Potassium Chloride Carbon Dioxide Anion Gap BUN Creatinine Estim Creat Clear Calc Est GFR (MDRD) Af Amer Est GFR (MDRD) Non-Af BUN/Creatinine Ratio Glucose Calcium Iron TIBC Iron Saturation Ferritin Vitamin B12 RBC Folate Hemolysate RBC Folate Hematocrit Random Vancomycin POC Glucose 09/27/18 09/27/18 09/27/18 16:30 11:28 06:47 POC Glucose 207 H 178 H 101 09/27/18 09/27/18 09/26/18 06:26 06:24 22:49 POC Glucose 61 L 55 L 110 09/26/18 09/26/18 19:16 18:58 POC Glucose 123 H 71 Medical Necessity - Tobacco Use Smoking Status: Former smoker Tobacco Use: Cigarettes Assessment/Plan All Active Problems Osteomyelitis (Acute) Necrosis of toe (Acute) Osteomyelitis of right foot (Acute) Necrotizing infection right foot with gangrene and gas in tissues s/p debridement open TMA right foot on 09/26/18 Abscess right foot Osteomyelitis right foot Uncontrolled diabetes with peripheral neuropathy Examined foot - no clinical evidence of residual infection, tissues healthy and viable. Upon dressing removal there was some minimal active bleeding. Recommend wound vac, but would wait 1-2 more days, will re-evaluate tomorrow. Cleansed site with normal saline solution, reapplied dressing consisting of gauze, kerlix , abd pads, and kieran bandages. No weightbearing right foot, keep right foot elevated at all times. Continue to follow cultures, patient on IV antibiotics per Infectious Disease/Dr. Beth. Noted hgb at 7.6, which is being monitored, diabetes, and further medical management per medicine team. Podiatry will continue to follow.
[2018-09-27 21:40] LABS: Bedside Glucose 249 mg/dL (70-110)
[2018-09-27 21:49] VITALS: BP 121/73; PULSE 81; RESP 18; TEMP 37; O2SAT 94
[2018-09-27] MEDS: Atorvastatin Calcium 40 MG Tablet PO (21:53)
[2018-09-28] VITALS (8 sets, daily range): BP systolic 108–144; BP diastolic 55–83; PULSE 73–80; RESP 17–18; TEMP 36.6–37; O2SAT 95–98
[2018-09-28] MEDS: oxyCODONE 5 MG Tablet PO (06:29)
[2018-09-28 06:30] LABS: Absolute Lymphocyte Count 0.94 X10^3/uL (0.83-4.51); Basophil# 0.02 X10^3/uL; Basophil% 0.3 % (0-1); Eosinophil# 0.22 X10^3/uL; Eosinophils% 2.8 % (0-5); Hematocrit 23.6 % (37-47); Hemoglobin 7.5 g/dL (12.0-15.0); Lymphocyte # 0.94 X10^3/ul (4.0); Lymphocyte % 12.1 % (19-41); Mean Corp Hgb Conc 31.8 g/dL (32-36); Mean Corpuscular Hgb 26.6 pg (27.0-32.0); Mean Corpuscular Volume 83.7 fL (81-99); Mean Platelet Vol. 9.1 fl (6.2-12.0); Monocyte# 0.48 X10^3/uL; Monocyte% 6.2 % (0-10); NRBC Flagged by Analyzer 0 % (0-5); Neutrophil # 6.02 X10^3/uL (2.7-7.7); Neutrophil % 77.4 % (47-70); Platelet Count 374 K/mm3 (150-450); RBC Distribution Width CV 14.2 % (11.6-14.6); RBC Distribution Width SD 42.5 fl (35.1-43.9); Red Blood Count 2.82 M/mm3 (4.2-5.4); White Blood Count 7.8 K/mm3 (4.4-11.0)
[2018-09-28 06:31] LABS: Bedside Glucose 147 mg/dL (70-110)
[2018-09-28] MEDS: 0.9% NaCl PICC Flush IV ×2 (06:34→09:12)
[2018-09-28 06:38] LABS: Anion Gap 3 (5-15); BUN 14 mg/dL (7-18); Calcium,Total 8.2 mg/dL (8.5-10.1); Chloride 106 mmol/L (98-107); Creatinine, Serum 0.61 mg/dL (0.55-1.02); EST Glomerular Filtration Rate 106 mL/min (>60); Est Glom Filt Rate - Afr Amer 129 mL/min (>60); Estimated Creatinine Clearance 84.69 ml/min; Glucose 149 mg/dL (74-106); Potassium 3.8 mmol/L (3.5-5.1); Sodium Level 138 mmol/L (136-145)
--- NOTE | 2018-09-28 08:35 | PCM.PROGNOTE ---
Subjective: Chief complaint: Follow-up after admission for right foot osteomyelitis/abscess/gangrene debridement of all nonviable soft tissue and bone of the right foot with transmetatarsal amputation. Patient seen and examined. No acute events overnight. Right foot pain is manageable. Denies any other complaints. Her vital signs are stable. - Physical Exam General: Alert, Oriented x3, Cooperative, No apparent distress HEENT: Atraumatic, PERRLA, EOMI, Normocephalic Oral: Moist Mucosa, No Gingival or Mucosal Lesions/ Ulcerations Neck: Supple, No JVD, Negative Carotid Bruits, Trachea Midline, Thyroid Normal Size and Texture Lungs: Clear to auscultation, Normal air movement, No rhonchi, No wheeze, No rales Cardiovascular: Regular rate, Regular Rhythm, Normal S1, Normal S2, No murmurs Abdomen: Bowel Sounds Present, Soft, Non Tender, Non-Distended, No Hepato-splenomegaly Extremities: No clubbing, No cyanosis, No edema Skin: No rashes, Ulcer/ Wound Lymphatic: No Cervical, Supraclavicular, or Inguinal Adenopathy Neurological: Cranial nerves II-XII grossly intact, Neuro grossly intact Psych/Mental Status: Normal Affect, Appropriate, Alert and oriented to time, place, person, mood and affect Vital Signs Temp Pulse Resp BP Pulse Ox 98.6 F 73 17 119/67 96 09/28/18 03:35 09/28/18 03:35 09/28/18 03:35 09/28/18 03:35 09/28/18 06:47 Oxygen Flow Rate (L/min) 2 Oxygen Delivery Method Room Air Weight: 146 lb 1.605 oz Body Mass Index (BMI) 25.0 Finger Stick Blood Glucose 401 Intake and Output for Last 24 Hours 09/26/18 09/27/18 09/28/18 23:59 23:59 23:59 Intake Total 1100 / 1100 2720 / 4108 2194 / 2194 Output Total 500 / 500 Balance 1100 / 1100 2719 / 4107 1694 / 1694 Microbiology Past 72 Hours 09/26/18 19:19 Gram Stain - Final Abs - Right Foot 09/26/18 19:19 Gram Stain - Final Biopsy - Bone 09/26/18 19:19 Gram Stain - Final Biopsy - Bone 09/26/18 19:19 Gram Stain - Final Biopsy - Bone 09/26/18 19:19 Gram Stain - Final Biopsy - Bone 09/26/18 19:19 Gram Stain - Final Biopsy - Bone Laboratory Tests Past 24 Hrs 09/27/18 09/27/18 09/27/18 05:45 10:00 10:00 WBC RBC Hgb Hct MCV MCH MCHC RDW Std Deviation RDW Coeff of Nuno Plt Count MPV Immature Gran % (Auto) Neut % (Auto) Lymph % (Auto) [place] % (Auto) Eos % (Auto) Baso % (Auto) Absolute Neuts (auto) Absolute Lymphs (auto) Absolute Nucleated RBC Nucleated RBC % PT INR Sodium Potassium Chloride Carbon Dioxide Anion Gap BUN Creatinine Estim Creat Clear Calc Est GFR (MDRD) Af Amer Est GFR (MDRD) Non-Af BUN/Creatinine Ratio Glucose Calcium Iron 18 L TIBC 116 L Iron Saturation 15.5 Ferritin 253 H Vitamin B12 454 RBC Folate Hemolysate Pending RBC Folate Pending Hematocrit Pending 09/27/18 09/28/18 09/28/18 12:15 05:50 05:50 WBC 7.8 RBC 2.82 L Hgb 7.5 L Hct 23.6 L MCV 83.7 MCH 26.6 L MCHC 31.8 L RDW Std Deviation 42.5 RDW Coeff of Nuno 14.2 Plt Count 374 MPV 9.1 Immature Gran % (Auto) 1.200 H Neut % (Auto) 77.4 H Lymph % (Auto) 12.1 L [place] % (Auto) 6.2 Eos % (Auto) 2.8 Baso % (Auto) 0.3 Absolute Neuts (auto) 6.0 Absolute Lymphs (auto) 0.94 Absolute Nucleated RBC 0.00 Nucleated RBC % 0 PT 17.0 H INR 1.4 Sodium 138 Potassium 3.8 Chloride 106 Carbon Dioxide 29.0 Anion Gap 3 L BUN 14 Creatinine 0.61 Estim Creat Clear Calc 84.69 Est GFR (MDRD) Af Amer 129 Est GFR (MDRD) Non-Af 106 BUN/Creatinine Ratio 23.0 H Glucose 149 H Calcium 8.2 L Iron TIBC Iron Saturation Ferritin Vitamin B12 RBC Folate Hemolysate RBC Folate Hematocrit POC Glucose 09/28/18 09/27/18 09/27/18 06:25 21:34 16:30 POC Glucose 147 H 249 H 207 H 09/27/18 11:28 POC Glucose 178 H Medical Necessity - Tobacco Use Smoking Status: Former smoker Tobacco Use: Cigarettes Assessment/Plan All Active Problems Osteomyelitis (Acute) Necrosis of toe (Acute) Osteomyelitis of right foot (Acute) This is a 58 years old female patient was sent from the group home to the ED for nonhealing right foot wound and black ulceration of the toes of the right foot, found to have osteomyelitis of the right foot with abscess, gangrene and nonhealing necrotic ulcer status post debridement of all nonviable, infected and necrotic soft tissue and bone as well as transmetatarsal amputation. #1 acute right foot osteomyelitis/abscess/necrotizing fasciitis/gangrene with nonhealing ulcer: Status post debridement of all nonviable and infected tissues and bone, status post bone biopsy and transmetatarsal amputation. Postoperative day 2. Remained on IV vancomycin and Zosyn. Wound cultures are pending. Vital signs are stable, afebrile, no leukocytosis. Infectious disease and podiatry medicine are on the case. Plan to continue same treatment. #2 anemia: Today's hemoglobin is 7.5 g/dL, at least dropping. It came down from 7.6 yesterday. Again, no obvious active bleeding. This anemia is fairly acute, hemoglobin has been dropping since the beginning of this month and previously, it was normal. It is iron deficiency anemia. Patient received 1 dose of IV sucrose and started on iron supplement. Stool for occult blood ordered, not done yet. Plan: Transfuse 1 unit of packed RBCs, repeat H&H tomorrow morning. #3 hypokalemia: Potassium replaced and corrected, today's potassium is 3.8. #4 type 2 diabetes mellitus: She is on insulin sliding scale. Blood sugar has been under fair control. Glimepiride and metformin held. #5 Hypertension: Blood pressure stable, continue lisinopril. #6 hyperlipidemia: Continue statins. #7 peripheral vascular disease: Continue aspirin, statins and Plavix. #8 DVT prophylaxis: Subcu Lovenox. This note was generated with [employer] software. It may contain incorrect words, spelling, and punctuation that were not noted in checking the note before signing. Code Visit Inpatient E&M: 02186 Subs Hosp L2
[2018-09-28] MEDS: Glucerna Shake 120 ML LIQUID PO ×4 (08:55→21:25)
[2018-09-28] MEDS: Multivitamins,Ther W-Minerals Tablet 1 TABLET PO (08:56)
[2018-09-28] MEDS: Aspirin 81 MG TAB.CHEW PO (08:56)
--- NOTE | 2018-09-28 09:51 | PCM.PN.ID ---
Subjective: Feeling ok, mild nausea, no fever - Physical Exam General: Alert, Cooperative, No apparent distress Lungs: Clear to auscultation, Normal air movement Abdomen: Soft, Non Tender, Non-Distended Skin: Ulcer/ Wound - R foot wrapped Vital Signs Temp Pulse Resp BP Pulse Ox 98.6 F 73 17 119/67 96 09/28/18 03:35 09/28/18 03:35 09/28/18 03:35 09/28/18 03:35 09/28/18 06:47 Oxygen Flow Rate (L/min) 2 Oxygen Delivery Method Room Air Weight: 66.27 kg Body Mass Index (BMI) 25.0 Finger Stick Blood Glucose 401 Intake and Output for Last 24 Hours 09/26/18 09/27/18 09/28/18 23:59 23:59 23:59 Intake Total 1100 / 1100 2720 / 4108 2194 / 2194 Output Total 500 / 500 Balance 1100 / 1100 2719 / 4107 1694 / 1694 Microbiology Past 72 Hours 09/26/18 19:19 Gram Stain - Final Abs - Right Foot 09/26/18 19:19 Gram Stain - Final Biopsy - Bone 09/26/18 19:19 Gram Stain - Final Biopsy - Bone 09/26/18 19:19 Gram Stain - Final Biopsy - Bone 09/26/18 19:19 Gram Stain - Final Biopsy - Bone 09/26/18 19:19 Gram Stain - Final Biopsy - Bone Laboratory Tests Past 24 Hrs 09/27/18 09/27/18 09/27/18 10:00 10:00 12:15 WBC RBC Hgb Hct MCV MCH MCHC RDW Std Deviation RDW Coeff of Nuno Plt Count MPV Immature Gran % (Auto) Neut % (Auto) Lymph % (Auto) [place] % (Auto) Eos % (Auto) Baso % (Auto) Absolute Neuts (auto) Absolute Lymphs (auto) Absolute Nucleated RBC Nucleated RBC % PT 17.0 H INR 1.4 Sodium Potassium Chloride Carbon Dioxide Anion Gap BUN Creatinine Estim Creat Clear Calc Est GFR (MDRD) Af Amer Est GFR (MDRD) Non-Af BUN/Creatinine Ratio Glucose Calcium Vitamin B12 454 RBC Folate Hemolysate Pending RBC Folate Pending Hematocrit Pending Blood Type Antibody Screen Crossmatch 09/28/18 09/28/18 09/28/18 05:50 05:50 09:05 WBC 7.8 RBC 2.82 L Hgb 7.5 L Hct 23.6 L MCV 83.7 MCH 26.6 L MCHC 31.8 L RDW Std Deviation 42.5 RDW Coeff of Nuno 14.2 Plt Count 374 MPV 9.1 Immature Gran % (Auto) 1.200 H Neut % (Auto) 77.4 H Lymph % (Auto) 12.1 L [place] % (Auto) 6.2 Eos % (Auto) 2.8 Baso % (Auto) 0.3 Absolute Neuts (auto) 6.0 Absolute Lymphs (auto) 0.94 Absolute Nucleated RBC 0.00 Nucleated RBC % 0 PT INR Sodium 138 Potassium 3.8 Chloride 106 Carbon Dioxide 29.0 Anion Gap 3 L BUN 14 Creatinine 0.61 Estim Creat Clear Calc 84.69 Est GFR (MDRD) Af Amer 129 Est GFR (MDRD) Non-Af 106 BUN/Creatinine Ratio 23.0 H Glucose 149 H Calcium 8.2 L Vitamin B12 RBC Folate Hemolysate RBC Folate Hematocrit Blood Type Pending Antibody Screen Pending Crossmatch See Detail POC Glucose 09/28/18 09/27/18 09/27/18 06:25 21:34 16:30 POC Glucose 147 H 249 H 207 H 09/27/18 11:28 POC Glucose 178 H Medical Necessity - Tobacco Use Smoking Status: Former smoker Tobacco Use: Cigarettes Route of nutrition/ use of supplements: [] Nutritional Intake: [] IV Site: [] Robles Catheter: [] - Assessment/Plan Antibiotics: [] Assessment/Plan: [] R foot nec fasc, osteo - now s/p TMA by Dr. Cardona. Surg cx neg so far. On vanc/zosyn for broad empiric coverage. Incision with no sign of residual infection this AM per podiatry notes. She should not need iv abx at discharge if infection has been completely resected. Will follow
--- NOTE | 2018-09-28 09:52 | CASEMGMT ---
Social Work Note Per physician pt is not medically cleared for discharge and will likely be at [facility] for a few days. HAILE placed a call to Alyssa at [facility] and updated her on this, that pt will hopefully be ready for discharge over the weekend. HAILE informed Alyssa that the hope is for pre-cert to be obtained tomorrow and will be good for the weekend for a weekend discharge. Plan: [facility] pending pre-cert Maddie Mcneill MSW, FLEXOGRAPHIC PRESS PLATE SETTER
[2018-09-28] MEDS: Ascorbic Acid 500 MG Tablet PO (10:52)
[2018-09-28] MEDS: Lisinopril 2.5 MG Tablet PO (10:53)
[2018-09-28] MEDS: Polyethylene Glycol 3350 17 GM PACKET PO (10:53)
[2018-09-28] MEDS: Enoxaparin 40 MG/0.4 ML Syringe SC (10:53)
[2018-09-28 11:51] LABS: Bedside Glucose 272 mg/dL (70-110)
[2018-09-28 12:16] LABS: Vancomycin, Trough Level 21.2 ug/mL (5.0-15.0)
--- NOTE | 2018-09-28 12:38 | PCM.RX.CS ---
Consult Pharmacy has been consulted to manage selected antiobiotic: Vancomycin Type of Consult: Follow-up Suspected Infection: Osteomyelitis Prior Doses of Antibiotics Received/Current Regimen: 1500mg iv q12h Labs: Sodium 138 mmol/L (136-145) 09/28/18 05:50 Potassium 3.8 mmol/L (3.5-5.1) 09/28/18 05:50 Chloride 106 mmol/L (98-107) 09/28/18 05:50 Carbon Dioxide 29.0 mmol/L (21.0-32.0) 09/28/18 05:50 3 (5-15) L 09/28/18 05:50 BUN 14 mg/dL (7-18) 09/28/18 05:50 0.61 mg/dL (0.55-1.02) 09/28/18 05:50 Est GFR (MDRD) Af Amer 129 mL/min (>60) 09/28/18 05:50 Est GFR (MDRD) Non-Af 106 mL/min (>60) 09/28/18 05:50 23.0 RATIO (10-20) H 09/28/18 05:50 Glucose 149 mg/dL (74-106) H 09/28/18 05:50 Vancomycin Trough 21.2 ug/mL (5.0-15.0) H 09/28/18 11:30 Random Vancomycin 19.7 ug/mL (0.0-15.0) H 09/26/18 22:10 Microbiology: Microbiology 09/28/18 11:25 Stool Stool Occult Blood (OSMAR) - Final 09/26/18 19:19 Abs - Right Foot Gram Stain - Final 09/26/18 19:19 Abs - Right Foot Wound Culture - Preliminary Presumptive C albicans Staphylococcus species 09/26/18 19:19 Biopsy - Bone Gram Stain - Final 09/26/18 19:19 Biopsy - Bone Wound Culture - Preliminary Gram positive organism Gram positive organism#2 09/26/18 19:19 Biopsy - Bone Gram Stain - Final 09/26/18 19:19 Biopsy - Bone Wound Culture - Preliminary Gram positive organism 09/26/18 19:19 Biopsy - Bone Gram Stain - Final 09/26/18 19:19 Biopsy - Bone Wound Culture - Preliminary Staphylococcus species 09/26/18 19:19 Biopsy - Bone Gram Stain - Final 07/23/19 19:19 Biopsy - Bone Wound Culture - Preliminary Staphylococcus species 09/26/18 19:19 Biopsy - Bone Gram Stain - Final 09/26/18 19:19 Biopsy - Bone Wound Culture - Preliminary Staphylococcus species Weight used for dosin.3 kg Estimated Creatinine Clearance: ~85 ml/min Goal Trough: 15-20 mcg/mL Pharmacy Plan for Drug Dosing: Trough level 7.25.19 @1130 was 21.2 (goal range 15-20 mcg/ml). Will DC current dose of 1500mg iv q12h and get repeat level this evening . Will reevaluate at that time and recalculate dosing regimen. Pharmacy Service will continue to monitor and adjust dosing as required. Follow-Up Labs: Trough Vancomycin - 7.25.19 @1930
[2018-09-28] MEDS: Insulin Lispro 100 UNIT/ML INSULN.PEN SC ×3 (13:01→21:28)
[2018-09-28] MEDS: Ferrous Sulfate 325 MG Tablet PO ×2 (13:02→17:35)
--- NOTE | 2018-09-28 13:48 | NURSING ---
According to progress note and patient, Dr Cardona plans to reassess the right foot today. possible wound VAC in the next day or two. will assist with wound care as desired by podiatry
[2018-09-28 16:07] LABS: Folate, Hemolysate Test 314.1 ng/mL (Not Estab.); Folate, RBC (Hct) Test 23.7 % (34.0-46.6)
--- NOTE | 2018-09-28 16:15 | CASEMGMT ---
Social Work Note SW faxed updated clinicals to [facility]. Plan: [facility] pending pre-cert Maddie Mcneill ACQUISITIONS ASSISTANT, [employer] PLANS INTELLIGENCE OFFICER CHIEF
[2018-09-28 16:31] LABS: Bedside Glucose 267 mg/dL (70-110)
--- NOTE | 2018-09-28 17:14 | PCM.PROGNOTE ---
Subjective: Patient was seen today for follow up right foot, s/p debridement. Patient received 1 unit PRBC today for 7.5 hgb. Patient resting comfortably in bed with mother at bedside. Patient requested I call her daughter to give update on foot. Patient with no complaints of fever, chills, nausea or vomiting. - Physical Exam General: Alert, Oriented x3, Cooperative, No apparent distress Extremities: - - s/p debridement right foot/open TMA with viable tissue, healthy in appearance, no maloder, no fluctuance, no crepitus, no visible abscess, no streaking, no purulence present. No evidence of complications at this time. Vital Signs Temp Pulse Resp BP Pulse Ox 98.4 F 80 18 143/83 H 95 09/28/18 16:17 09/28/18 16:17 09/28/18 16:17 09/28/18 16:17 09/28/18 16:17 Oxygen Flow Rate (L/min) 2 Oxygen Delivery Method Room Air Weight: 66.27 kg Body Mass Index (BMI) 25.0 Finger Stick Blood Glucose 401 Intake and Output for Last 24 Hours 09/26/18 09/27/18 09/28/18 23:59 23:59 23:59 Intake Total 1100 / 1100 2720 / 4108 3894 / 3894 Output Total 500 / 500 Balance 1100 / 1100 2719 / 4107 3394 / 3394 Microbiology Past 72 Hours 09/28/18 11:25 Stool Occult Blood (OSMAR) - Final Stool 09/26/18 19:19 Gram Stain - Final Abs - Right Foot Wound Culture - Preliminary Presumptive C albicans Staphylococcus species 09/26/18 19:19 Gram Stain - Final Biopsy - Bone Wound Culture - Preliminary Gram positive organism Gram positive organism#2 09/26/18 19:19 Gram Stain - Final Biopsy - Bone Wound Culture - Preliminary Gram positive organism 09/26/18 19:19 Gram Stain - Final Biopsy - Bone Wound Culture - Preliminary Staphylococcus species 09/26/18 19:19 Gram Stain - Final Biopsy - Bone Wound Culture - Preliminary Staphylococcus species 09/26/18 19:19 Gram Stain - Final Biopsy - Bone Wound Culture - Preliminary Staphylococcus species Laboratory Tests Past 24 Hrs 09/28/18 09/28/18 09/28/18 05:50 05:50 09:05 WBC 7.8 RBC 2.82 L Hgb 7.5 L Hct 23.6 L MCV 83.7 MCH 26.6 L MCHC 31.8 L RDW Std Deviation 42.5 RDW Coeff of Nuno 14.2 Plt Count 374 MPV 9.1 Immature Gran % (Auto) 1.200 H Neut % (Auto) 77.4 H Lymph % (Auto) 12.1 L [place] % (Auto) 6.2 Eos % (Auto) 2.8 Baso % (Auto) 0.3 Absolute Neuts (auto) 6.0 Absolute Lymphs (auto) 0.94 Absolute Nucleated RBC 0.00 Nucleated RBC % 0 Sodium 138 Potassium 3.8 Chloride 106 Carbon Dioxide 29.0 Anion Gap 3 L BUN 14 Creatinine 0.61 Estim Creat Clear Calc 84.69 Est GFR (MDRD) Af Amer 129 Est GFR (MDRD) Non-Af 106 BUN/Creatinine Ratio 23.0 H Glucose 149 H Calcium 8.2 L Vancomycin Trough Blood Type O POSITIVE Antibody Screen NEGATIVE Crossmatch See Detail 09/28/18 11:30 WBC RBC Hgb Hct MCV MCH MCHC RDW Std Deviation RDW Coeff of Nuno Plt Count MPV Immature Gran % (Auto) Neut % (Auto) Lymph % (Auto) [place] % (Auto) Eos % (Auto) Baso % (Auto) Absolute Neuts (auto) Absolute Lymphs (auto) Absolute Nucleated RBC Nucleated RBC % Sodium Potassium Chloride Carbon Dioxide Anion Gap BUN Creatinine Estim Creat Clear Calc Est GFR (MDRD) Af Amer Est GFR (MDRD) Non-Af BUN/Creatinine Ratio Glucose Calcium Vancomycin Trough 21.2 H Blood Type Antibody Screen Crossmatch POC Glucose 09/28/18 09/28/18 09/28/18 16:24 11:44 06:25 POC Glucose 267 H 272 H 147 H 09/27/18 21:34 POC Glucose 249 H Medical Necessity - Tobacco Use Smoking Status: Former smoker Tobacco Use: Cigarettes Assessment/Plan All Active Problems Osteomyelitis (Acute) Necrosis of toe (Acute) Osteomyelitis of right foot (Acute) Necrotizing infection right foot with gangrene and gas in tissues s/p debridement open TMA right foot on 09/26/18 Abscess right foot Osteomyelitis right foot Uncontrolled diabetes with peripheral neuropathy Examined foot - no clinical evidence of residual infection, tissues remain healthy and viable. Upon dressing removal no active bleeding. Recommend wound vac, will have applied tomorrow. Cleansed site with normal saline solution, reapplied dressing consisting of gauze, kerlix, abd pads, and kieran bandages. No weightbearing right foot, keep right foot elevated at all times. Continue to follow cultures, patient on IV antibiotics per Infectious Disease/Dr. Beth. Noted hgb at 7.5, which patient received tranfusion today, diabetes, and further medical management per medicine team. Reviewed with patient's daughter with patient's consent today. Patient and daughter had a lot of questions about proper diabetic diet, advised to follow up with dietitian, who has been consulted. Podiatry will continue to follow.
[2018-09-28 20:14] LABS: Vancomycin, Trough Level 15.2 ug/mL (5.0-15.0)
--- NOTE | 2018-09-28 20:39 | PCM.RX.CS ---
Consult Pharmacy has been consulted to manage selected antiobiotic: Vancomycin Type of Consult: Follow-up Suspected Infection: Osteomyelitis Prior Doses of Antibiotics Received/Current Regimen: 1500mg iv q12h Labs: Sodium 138 mmol/L (136-145) 09/28/18 05:50 Potassium 3.8 mmol/L (3.5-5.1) 09/28/18 05:50 Chloride 106 mmol/L (98-107) 09/28/18 05:50 Carbon Dioxide 29.0 mmol/L (21.0-32.0) 09/28/18 05:50 3 (5-15) L 09/28/18 05:50 BUN 14 mg/dL (7-18) 09/28/18 05:50 0.61 mg/dL (0.55-1.02) 09/28/18 05:50 Est GFR (MDRD) Af Amer 129 mL/min (>60) 09/28/18 05:50 Est GFR (MDRD) Non-Af 106 mL/min (>60) 09/28/18 05:50 23.0 RATIO (10-20) H 09/28/18 05:50 Glucose 149 mg/dL (74-106) H 09/28/18 05:50 Vancomycin Trough 15.2 ug/mL (5.0-15.0) H 09/28/18 19:30 Random Vancomycin 19.7 ug/mL (0.0-15.0) H 09/26/18 22:10 Microbiology: Microbiology 09/28/18 11:25 Stool Stool Occult Blood (OSMAR) - Final 09/26/18 19:19 Abs - Right Foot Gram Stain - Final 09/26/18 19:19 Abs - Right Foot Wound Culture - Preliminary Presumptive C albicans Staphylococcus species 09/26/18 19:19 Biopsy - Bone Gram Stain - Final 09/26/18 19:19 Biopsy - Bone Wound Culture - Preliminary Gram positive organism Gram positive organism#2 09/26/18 19:19 Biopsy - Bone Gram Stain - Final 09/26/18 19:19 Biopsy - Bone Wound Culture - Preliminary Gram positive organism 09/26/18 19:19 Biopsy - Bone Gram Stain - Final 09/26/18 19:19 Biopsy - Bone Wound Culture - Preliminary Staphylococcus species 09/26/18 19:19 Biopsy - Bone Gram Stain - Final 07/23/19 19:19 Biopsy - Bone Wound Culture - Preliminary Staphylococcus species 09/26/18 19:19 Biopsy - Bone Gram Stain - Final 09/26/18 19:19 Biopsy - Bone Wound Culture - Preliminary Staphylococcus species Weight used for dosin.3 kg Estimated Creatinine Clearance: ~85ml/min Goal Trough: 15-20 mcg/mL Pharmacy Plan for Drug Dosing: New regimen will be 1250mg iv q12h with another trough level on 09.30.18 before 4th dose of this new dosing. Pharmacy Service will continue to monitor and adjust dosing as required. Follow-Up Labs: Trough Vancomycin - 09.30.18 @0830 before 0900 dose
[2018-09-28] MEDS: Atorvastatin Calcium 40 MG Tablet PO (21:26)
[2018-09-28 21:40] LABS: Bedside Glucose 200 mg/dL (70-110)
[2018-09-29 03:17] VITALS: BP 132/63; PULSE 68; RESP 16; TEMP 37.1; O2SAT 98
[2018-09-29] MEDS: oxyCODONE 5 MG Tablet PO ×2 (03:23→23:05)
[2018-09-29] MEDS: 0.9% NaCl PICC Flush IV (05:55)
[2018-09-29 05:59] LABS: Hematocrit 27.2 % (37-47); Hemoglobin 8.7 g/dL (12.0-15.0)
[2018-09-29] MEDS: Insulin Lispro 100 UNIT/ML INSULN.PEN SC ×4 (07:02→21:04)
[2018-09-29 07:11] LABS: Bedside Glucose 177 mg/dL (70-110)
[2018-09-29 07:50] VITALS: O2SAT 95
--- NOTE | 2018-09-29 08:04 | NURSING ---
wound photo: right foot
--- NOTE | 2018-09-29 08:04 | NURSING ---
wound photo: right foot
[2018-09-29] MEDS: Multivitamins,Ther W-Minerals Tablet 1 TABLET PO (08:18)
[2018-09-29] MEDS: Aspirin 81 MG TAB.CHEW PO (08:19)
[2018-09-29] MEDS: Ascorbic Acid 500 MG Tablet PO (08:19)
--- NOTE | 2018-09-29 08:24 | PN_ITS ---
Subjective: Chief complaint: Follow-up after admission for right foot osteomyelitis/abscess/gangrene debridement of all nonviable soft tissue and bone of the right foot with transmetatarsal amputation. Patient seen and examined. No acute events overnight. Today, she complained of skin rash on the lower abdomen and minimal on the upper back, it is itchy. It started after blood transfusion yesterday. Denies any other symptoms. Right foot pain is manageable. Her vital signs are stable. - Physical Exam General: Alert, Oriented x3, Cooperative, No apparent distress HEENT: Atraumatic, PERRLA, EOMI, Normocephalic Oral: Moist Mucosa, No Gingival or Mucosal Lesions/ Ulcerations Neck: Supple, No JVD, Negative Carotid Bruits, Trachea Midline, Thyroid Normal Size and Texture Lungs: Clear to auscultation, Normal air movement, No rhonchi, No wheeze, No rales, Diminished Cardiovascular: Regular rate, Regular Rhythm, Normal S1, Normal S2, PMI Normal Abdomen: Bowel Sounds Present, Soft, Non Tender, Non-Distended, No Hepato- splenomegaly Extremities: No clubbing, No cyanosis, No edema Skin: Ulcer/ Wound, Rash Present Lymphatic: No Cervical, Supraclavicular, or Inguinal Adenopathy Neurological: Cranial nerves II-XII grossly intact, Neuro grossly intact Psych/Mental Status: Normal Affect, Appropriate, Alert and oriented to time, place, person, mood and affect Vital Signs Temp Pulse Resp BP Pulse Ox 98.8 F 68 16 132/63 H 95 09/29/18 03:17 09/29/18 03:17 09/29/18 03:17 09/29/18 03:17 09/29/18 07:50 Oxygen Flow Rate (L/min) 2 Oxygen Delivery Method Room Air Weight: 146 lb 1.605 oz Body Mass Index (BMI) 25.0 Finger Stick Blood Glucose 401 Intake and Output for Last 24 Hours 09/27/18 09/28/18 09/29/18 23:59 23:59 23:59 Intake Total 2720 / 4108 5394 / 6132 1093 / 1093 Output Total 501 / 501 Balance 2719 / 4107 4893 / 5631 1093 / 1093 Microbiology Past 72 Hours 09/26/18 16:40 Blood Culture - Preliminary Blood Culture (Wb) - Anticubital Right No growth in 48 hours. 09/26/18 16:15 Blood Culture - Preliminary Blood Culture (Wb) #2 - Anticubital Left No growth in 48 hours. 09/28/18 11:25 Stool Occult Blood (OSMAR) - Final Stool 09/26/18 19:19 Gram Stain - Final Abs - Right Foot Wound Culture - Preliminary Presumptive C albicans Staphylococcus species 09/26/18 19:19 Gram Stain - Final Biopsy - Bone Wound Culture - Preliminary Gram positive organism Gram positive organism#2 09/26/18 19:19 Gram Stain - Final Biopsy - Bone Wound Culture - Preliminary Gram positive organism 09/26/18 19:19 Gram Stain - Final Biopsy - Bone Wound Culture - Preliminary Staphylococcus species 09/26/18 19:19 Gram Stain - Final Biopsy - Bone Wound Culture - Preliminary Staphylococcus species 09/26/18 19:19 Gram Stain - Final Biopsy - Bone Wound Culture - Preliminary Staphylococcus species Laboratory Tests Past 24 Hrs 09/28/18 09/28/18 09/28/18 09:05 11:30 19:30 Hgb Hct Vancomycin Trough 21.2 H 15.2 H Blood Type O POSITIVE Antibody Screen NEGATIVE Crossmatch See Detail 09/29/18 05:35 Hgb 8.7 L Hct 27.2 L Vancomycin Trough Blood Type Antibody Screen Crossmatch POC Glucose 09/29/18 09/28/18 09/28/18 07:01 21:28 16:24 POC Glucose 177 H 200 H 267 H 09/28/18 11:44 POC Glucose 272 H Medical Necessity - Tobacco Use Smoking Status: Former smoker Tobacco Use: Cigarettes Assessment/Plan All Active Problems Osteomyelitis (Acute) Necrosis of toe (Acute) Osteomyelitis of right foot (Acute) This is a 58 years old female patient [facility] for nonhealing right foot wound and black ulceration of the toes of the right foot, found to have osteomyelitis of the right foot with abscess, gangrene and nonhealing necrotic ulcer status post debridement of all nonviable, infected and necrotic soft tissue and bone as well as transmetatarsal amputation. #1 acute right foot osteomyelitis/abscess/necrotizing fasciitis/gangrene with nonhealing ulcer: Status post debridement of all nonviable and infected tissues and bone, status post bone biopsy and transmetatarsal amputation. Postoperative day 3. Remained on IV vancomycin and Zosyn. Wound cultures revealed Staphylococcus species, final is pending. Vital signs are stable, afebrile, no leukocytosis. Infectious disease and podiatry medicine are on the case. This colonoscopy because of blood transfusion. No other symptoms and her vital signs are stable. I doubt any serious complications of blood transfusion. Plan to continue same treatment, start Benadryl as needed. #2 anemia: Today's hemoglobin is 8.7 g/dL after she received 1 unit of packed RBCs. Again, no obvious active bleeding. This anemia is fairly acute, hemoglobin has been dropping since the beginning of this month and previously, it was normal. It is iron deficiency anemia. Patient received 1 dose of IV sucrose and she is on iron supplement. Stool for occult blood was negative. #3 hypokalemia: Potassium replaced and corrected, yesterday's potassium is 3.8. #4 type 2 diabetes mellitus: She is on insulin sliding scale. Blood sugar has been under fair control. Plan to resume glimepiride, keep holding metformin. #5 Hypertension: Blood pressure stable, continue lisinopril. #6 hyperlipidemia: Continue statins. #7 peripheral vascular disease: Continue aspirin, statins and Plavix. #8 DVT prophylaxis: Subcu Lovenox. This note was generated with [employer] dictation software. It may contain incorrect words, spelling, and punctuation that were not noted in checking the note before signing. Code Visit Inpatient E&M: 68912 Subs Hosp L2
[2018-09-29] MEDS: DiphenhydrAMINE 25 MG Capsule PO ×2 (08:27→19:15)
[2018-09-29 08:28] VITALS: BP 134/73; PULSE 69; RESP 16; TEMP 36.5; O2SAT 98
[2018-09-29] MEDS: Enoxaparin 40 MG/0.4 ML Syringe SC (09:53)
[2018-09-29 11:17] LABS: Folates, RBC Test 1325 ng/mL (>498)
[2018-09-29] MEDS: Glimepiride 4 MG Tablet PO (11:31)
[2018-09-29] MEDS: Lisinopril 2.5 MG Tablet PO (11:31)
[2018-09-29] MEDS: Glucerna Shake 120 ML LIQUID PO ×4 (11:31→21:04)
[2018-09-29] MEDS: Ferrous Sulfate 325 MG Tablet PO ×2 (11:32→17:04)
--- NOTE | 2018-09-29 11:54 | CASEMGMT ---
Social Work Note Per physician, final blood cultures are still pending and pt will likely be discharge tomorrow. SW informed physician that pre-cert hasn't been obtained yet. HAILE faxed updated clinicals to [facility]. HAILE placed a call to Alyssa at [facility] and asked about pre-cert. Alyssa states she is anticipating she will receive pre-cert today and will give this worker a call back. Plan: [facility] pending pre-cert Maddie Mcneill CITY AUDITOR, AUTO BODY MECHANIC APPRENTICE
[2018-09-29 12:00] LABS: Bedside Glucose 288 mg/dL (70-110)
--- NOTE | 2018-09-29 13:17 | PCM.PN.ID ---
Subjective: Feeling ok, no fever, no n/v/d. - Physical Exam General: Alert, Cooperative, No apparent distress Lungs: Clear to auscultation, Normal air movement Cardiovascular: Regular rate, Regular Rhythm Abdomen: Soft, Non Tender, Non-Distended Skin: No rashes, Ulcer/ Wound - foot wrapped Vital Signs Temp Pulse Resp BP Pulse Ox 97.7 F L 69 16 134/73 H 98 09/29/18 08:28 09/29/18 08:28 09/29/18 08:28 09/29/18 08:28 09/29/18 08:28 Oxygen Flow Rate (L/min) 2 Oxygen Delivery Method Room Air Weight: 66.27 kg Body Mass Index (BMI) 25.0 Finger Stick Blood Glucose 401 Intake and Output for Last 24 Hours 09/27/18 09/28/18 09/29/18 23:59 23:59 23:59 Intake Total 2720 / 4108 5394 / 6132 1968 Output Total 501 / 501 Balance 2719 / 4107 4893 / 5631 1968 Microbiology Past 72 Hours 09/26/18 19:19 Gram Stain - Final Abs - Right Foot Wound Culture - Preliminary Presumptive C albicans Staphylococcus species Gram negative joyce Gram Positive Cocci Anaerobic Culture - Preliminary Checking for anaerobes, further studies to follow. 09/26/18 19:19 Gram Stain - Final Biopsy - Bone Wound Culture - Preliminary GPC Poss Enterococcus sp Gram Positive Cocci Gram positive joyce Anaerobic Culture - Preliminary Checking for anaerobes, further studies to follow. 09/26/18 19:19 Gram Stain - Final Biopsy - Bone Wound Culture - Preliminary Gram positive joyce Anaerobic Culture - Preliminary Checking for anaerobes, further studies to follow. 09/26/18 19:19 Gram Stain - Final Biopsy - Bone Wound Culture - Preliminary Staphylococcus species Gram positive joyce Anaerobic Culture - Preliminary Checking for anaerobes, further studies to follow. 09/26/18 19:19 Gram Stain - Final Biopsy - Bone Wound Culture - Preliminary Staphylococcus species Gram positive joyce Anaerobic Culture - Preliminary Checking for anaerobes, further studies to follow. 09/26/18 19:19 Gram Stain - Final Biopsy - Bone Wound Culture - Preliminary Gram positive joyce Anaerobic Culture - Preliminary No growth in 48 hours. 09/26/18 16:40 Blood Culture - Preliminary Blood Culture (Wb) - Anticubital Right No growth in 48 hours. 09/26/18 16:15 Blood Culture - Preliminary Blood Culture (Wb) #2 - Anticubital Left No growth in 48 hours. 09/28/18 11:25 Stool Occult Blood (OSMAR) - Final Stool Laboratory Tests Past 24 Hrs 09/27/18 09/28/18 09/28/18 10:00 09:05 19:30 Hgb Hct RBC Folate Hemolysate 314.1 RBC Folate 1325 Hematocrit 23.7 L Vancomycin Trough 15.2 H Blood Type O POSITIVE Antibody Screen NEGATIVE Crossmatch See Detail 09/29/18 05:35 Hgb 8.7 L Hct 27.2 L RBC Folate Hemolysate RBC Folate Hematocrit Vancomycin Trough Blood Type Antibody Screen Crossmatch POC Glucose 09/29/18 09/29/18 09/28/18 11:36 07:01 21:28 POC Glucose 288 H 177 H 200 H 09/28/18 16:24 POC Glucose 267 H Medical Necessity - Tobacco Use Smoking Status: Former smoker Tobacco Use: Cigarettes Route of nutrition/ use of supplements: [] Nutritional Intake: [] IV Site: [] Robles Catheter: [] - Assessment/Plan Antibiotics: [] Assessment/Plan: [] R foot nec fasc, osteo - now s/p TMA by Dr. Cardona. On vanc/zosyn for broad empiric coverage. Clearance cxs (+), so will need 6 weeks iv abx, stop date 11/07/18. May be able to narrow abx once susceptibilities are back. Will follow, d/w Dr. Arriaza
--- NOTE | 2018-09-29 13:55 | PCM.PROGNOTE ---
Subjective: Patient was seen today for follow up right foot. Patient had wound vac placed today. No fever, chills, nausea or vomiting. Hgb up to 8.7 - Physical Exam General: Alert, Oriented x3, Cooperative, No apparent distress Extremities: - - Wound vac inplace right foot and working well. Reviewed wound photos and foot looks good, no evidence of infection with noted granular and viable tissue to the wound site. Vital Signs Temp Pulse Resp BP Pulse Ox 97.7 F L 69 16 134/73 H 98 09/29/18 08:28 09/29/18 08:28 09/29/18 08:28 09/29/18 08:28 09/29/18 08:28 Oxygen Flow Rate (L/min) 2 Oxygen Delivery Method Room Air Weight: 66.27 kg Body Mass Index (BMI) 25.0 Finger Stick Blood Glucose 401 Intake and Output for Last 24 Hours 09/27/18 09/28/18 09/29/18 23:59 23:59 23:59 Intake Total 2720 / 4108 5394 / 6132 1968 Output Total 501 / 501 Balance 2719 / 4107 4893 / 5631 1968 Microbiology Past 72 Hours 09/26/18 19:19 Gram Stain - Final Abs - Right Foot Wound Culture - Preliminary Presumptive C albicans Staphylococcus species Gram negative joyce Gram Positive Cocci Anaerobic Culture - Preliminary Checking for anaerobes, further studies to follow. 09/26/18 19:19 Gram Stain - Final Biopsy - Bone Wound Culture - Preliminary GPC Poss Enterococcus sp Gram Positive Cocci Gram positive joyce Anaerobic Culture - Preliminary Checking for anaerobes, further studies to follow. 09/26/18 19:19 Gram Stain - Final Biopsy - Bone Wound Culture - Preliminary Gram positive joyce Anaerobic Culture - Preliminary Checking for anaerobes, further studies to follow. 09/26/18 19:19 Gram Stain - Final Biopsy - Bone Wound Culture - Preliminary Staphylococcus species Gram positive joyce Anaerobic Culture - Preliminary Checking for anaerobes, further studies to follow. 09/26/18 19:19 Gram Stain - Final Biopsy - Bone Wound Culture - Preliminary Staphylococcus species Gram positive joyce Anaerobic Culture - Preliminary Checking for anaerobes, further studies to follow. 09/26/18 19:19 Gram Stain - Final Biopsy - Bone Wound Culture - Preliminary Gram positive joyce Anaerobic Culture - Preliminary No growth in 48 hours. 09/26/18 16:40 Blood Culture - Preliminary Blood Culture (Wb) - Anticubital Right No growth in 48 hours. 09/26/18 16:15 Blood Culture - Preliminary Blood Culture (Wb) #2 - Anticubital Left No growth in 48 hours. 09/28/18 11:25 Stool Occult Blood (OSMAR) - Final Stool Laboratory Tests Past 24 Hrs 09/27/18 09/28/18 09/28/18 10:00 09:05 19:30 Hgb Hct RBC Folate Hemolysate 314.1 RBC Folate 1325 Hematocrit 23.7 L Vancomycin Trough 15.2 H Crossmatch See Detail 09/29/18 05:35 Hgb 8.7 L Hct 27.2 L RBC Folate Hemolysate RBC Folate Hematocrit Vancomycin Trough Crossmatch POC Glucose 09/29/18 09/29/18 09/28/18 11:36 07:01 21:28 POC Glucose 288 H 177 H 200 H 09/28/18 16:24 POC Glucose 267 H Medical Necessity - Tobacco Use Smoking Status: Former smoker Tobacco Use: Cigarettes Assessment/Plan All Active Problems Osteomyelitis (Acute) Necrosis of toe (Acute) Osteomyelitis of right foot (Acute) 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 No weightbearing right foot, keep right foot elevated at all times. Continue to follow cultures, clearance fragments positive per microbiology, patient on IV antibiotics per Infectious Disease/Dr. Beth. Diabetes, and further medical management per medicine team. Continue with proper diet / nutrition support to optimize healing. At this point foot stable, proceeding with wound vac therapy as noted above, podiatry will follow every 2-3 days while inpatient, patient to follow up weekly in podiatry clinic once discharged.
[2018-09-29 14:48] VITALS: BP 135/68; PULSE 73; RESP 18; TEMP 37.4; O2SAT 96
--- NOTE | 2018-09-29 14:50 | CASEMGMT ---
Social Work Note HAILE placed a call to Alyssa at [facility] and left message asking about pre-cert. HAILE faxed updated clinicals to [facility]. HAILE placed green sheet and transportation form on pt's chart in the event pre-cert is obtained. HENS is not needed as pt came from skilled at [facility] and will be returning skilled. Plan: [facility] pending pre-cert Maddie Mcneill MSW, CERTIFIED CODING SPECIALIST
[2018-09-29 17:06] LABS: Bedside Glucose 182 mg/dL (70-110)
[2018-09-29] MEDS: Acetaminophen 325 MG Tablet 650 MG PO (17:12)
[2018-09-29 21:00] VITALS: BP 124/54; PULSE 81; RESP 16; TEMP 36.9; O2SAT 96
[2018-09-29] MEDS: Atorvastatin Calcium 40 MG Tablet PO (21:04)
[2018-09-29 21:20] LABS: Bedside Glucose 254 mg/dL (70-110)
[2018-09-30 02:36] VITALS: BP 144/70; PULSE 70; RESP 16; TEMP 37; O2SAT 97
[2018-09-30] MEDS: oxyCODONE 5 MG Tablet PO (03:52)
[2018-09-30] MEDS: Acetaminophen 325 MG Tablet 650 MG PO ×2 (03:52→19:51)
[2018-09-30] MEDS: 0.9% NaCl PICC Flush IV ×2 (05:55→21:24)
[2018-09-30 06:46] LABS: Bedside Glucose 138 mg/dL (70-110)
[2018-09-30 07:38] VITALS: O2SAT 98
[2018-09-30] MEDS: Glimepiride 4 MG Tablet PO (07:48)
[2018-09-30] MEDS: Aspirin 81 MG TAB.CHEW PO (07:48)
[2018-09-30] MEDS: Multivitamins,Ther W-Minerals Tablet 1 TABLET PO (07:48)
[2018-09-30 08:29] VITALS: BP 134/69; PULSE 69; RESP 16; TEMP 36.2; O2SAT 98
[2018-09-30 09:07] LABS: Vancomycin, Trough Level 18.7 ug/mL (5.0-15.0)
--- NOTE | 2018-09-30 09:22 | PN_ITS ---
Subjective: Chief complaint: Follow-up after admission for right foot osteomyelitis/abscess/gangrene debridement of all nonviable soft tissue and bone of the right foot with transmetatarsal amputation. Patient seen and examined. No acute events overnight. She denies any significant complaints, right foot pain is stable. Her vital signs are stable. - Physical Exam General: Alert, Oriented x3, Cooperative, No apparent distress HEENT: Atraumatic, PERRLA, EOMI, Normocephalic Oral: Moist Mucosa, No Gingival or Mucosal Lesions/ Ulcerations Neck: Supple, No JVD, Negative Carotid Bruits, Trachea Midline, Thyroid Normal Size and Texture Lungs: Clear to auscultation, Normal air movement, No rhonchi, No wheeze, No rales Cardiovascular: Regular rate, Regular Rhythm, Normal S1, Normal S2, No murmurs, PMI Normal Abdomen: Bowel Sounds Present, Soft, Non Tender, Non-Distended, No Hepato- splenomegaly Extremities: No clubbing, No cyanosis, No edema Skin: No rashes, Ulcer/ Wound Lymphatic: No Cervical, Supraclavicular, or Inguinal Adenopathy Neurological: Cranial nerves II-XII grossly intact, Neuro grossly intact Psych/Mental Status: Normal Affect, Appropriate Vital Signs Temp Pulse Resp BP Pulse Ox 97.2 F L 69 16 134/69 H 98 09/30/18 08:29 09/30/18 08:29 09/30/18 08:29 09/30/18 08:29 09/30/18 08:29 Oxygen Flow Rate (L/min) 2 Oxygen Delivery Method Room Air Weight: 146 lb 1.605 oz Body Mass Index (BMI) 25.0 Finger Stick Blood Glucose 401 Intake and Output for Last 24 Hours 09/28/18 09/29/18 09/30/18 23:59 23:59 23:59 Intake Total 5394 / 6132 2551 / 2551 Output Total 501 / 501 Balance 4893 / 5631 2551 / 2551 Microbiology Past 72 Hours 09/26/18 19:19 Gram Stain - Final Abs - Right Foot Wound Culture - Preliminary Presumptive C albicans Meth. resistant Staph. aureus Gram negative joyce Staphylococcus epidermidis Anaerobic Culture - Preliminary Checking for anaerobes, further studies to follow. 09/26/18 19:19 Gram Stain - Final Biopsy - Bone Wound Culture - Preliminary Enterococcus faecalis Gram Positive Cocci Corynebacterium striatum Staphylococcus epidermidis Anaerobic Culture - Preliminary Checking for anaerobes, further studies to follow. 09/26/18 19:19 Gram Stain - Final Biopsy - Bone Wound Culture - Final Corynebacterium striatum Anaerobic Culture - Preliminary Checking for anaerobes, further studies to follow. 09/26/18 19:19 Gram Stain - Final Biopsy - Bone Wound Culture - Preliminary Staphylococcus species Corynebacterium striatum Anaerobic Culture - Preliminary Checking for anaerobes, further studies to follow. 09/26/18 19:19 Gram Stain - Final Biopsy - Bone Wound Culture - Preliminary Staphylococcus haemolyticus Corynebacterium striatum Anaerobic Culture - Preliminary Checking for anaerobes, further studies to follow. 09/26/18 19:19 Gram Stain - Final Biopsy - Bone Wound Culture - Final Corynebacterium striatum Anaerobic Culture - Preliminary No growth in 48 hours. 09/26/18 16:40 Blood Culture - Preliminary Blood Culture (Wb) - Anticubital Right No growth in 48 hours. 09/26/18 16:15 Blood Culture - Preliminary Blood Culture (Wb) #2 - Anticubital Left No growth in 48 hours. 09/28/18 11:25 Stool Occult Blood (OSMAR) - Final Stool Laboratory Tests Past 24 Hrs 09/27/18 09/30/18 10:00 08:15 RBC Folate Hemolysate 314.1 RBC Folate 1325 Hematocrit 23.7 L Vancomycin Trough 18.7 H POC Glucose 09/30/18 09/29/18 09/29/18 06:37 21:02 16:49 POC Glucose 138 H 254 H 182 H 09/29/18 11:36 POC Glucose 288 H Medical Necessity - Tobacco Use Smoking Status: Former smoker Tobacco Use: Cigarettes Assessment/Plan All Active Problems Osteomyelitis (Acute) Necrosis of toe (Acute) Osteomyelitis of right foot (Acute) This is a 58 years old female [facility] for nonhealing right foot wound and black ulceration of the toes of the right foot, found to have osteomyelitis of the right foot with abscess, gangrene and nonhealing necrotic ulcer status post debridement of all nonviable, infected and necrotic soft tissue and bone as well as transmetatarsal amputation. #1 acute right foot osteomyelitis/abscess/necrotizing fasciitis/gangrene with nonhealing ulcer: Status post debridement of all nonviable and infected tissues and bone, status post bone biopsy and transmetatarsal amputation. Postoperative day 4. Remained on IV vancomycin and Zosyn. Wound culture revealed MRSA, staph epidermidis and gram-negative rods, final is pending. Bone biopsy revealed staph species and Corynebacterium, final is pending. Vital signs are stable, afebrile, no leukocytosis. Infectious disease and podiatry medicine are on the case. Plan to continue same treatment. #2 anemia: Yesterday's hemoglobin is 8.7 g/dL after she received 1 unit of packed RBCs. Again, no obvious active bleeding. This anemia is fairly acute, hemoglobin has been dropping since the beginning of this month and previously, it was normal. It is iron deficiency anemia. Patient received 1 dose of IV sucrose and she is on iron supplement. Stool for occult blood was negative. Plan to monitor. #3 hypokalemia: Potassium replaced and corrected, most recent potassium is 3.8. #4 type 2 diabetes mellitus: She is on insulin sliding scale. Blood sugar has been under fair control. Plan to resume glimepiride, keep holding metformin. #5 Hypertension: Blood pressure stable, continue lisinopril. #6 hyperlipidemia: Continue statins. #7 peripheral vascular disease: Continue aspirin, statins and Plavix. #8 DVT prophylaxis: Subcu Lovenox. This note was generated with [employer] dictation software. It may contain incorrect words, spelling, and punctuation that were not noted in checking the note before signing. Code Visit Inpatient E&M: 70463 Subs Hosp L2
[2018-09-30] MEDS: Lisinopril 2.5 MG Tablet PO (10:34)
[2018-09-30] MEDS: Ascorbic Acid 500 MG Tablet PO (10:34)
[2018-09-30] MEDS: Glucerna Shake 120 ML LIQUID PO ×4 (10:34→21:24)
[2018-09-30] MEDS: Enoxaparin 40 MG/0.4 ML Syringe SC (10:34)
--- NOTE | 2018-09-30 11:57 | PCM.RX.CS ---
Consult Pharmacy has been consulted to manage selected antiobiotic: Vancomycin Type of Consult: Follow-up Suspected Infection: Osteomyelitis Prior Doses of Antibiotics Received/Current Regimen: Medications Vancomycin HCl 1,250 mg/ (Sodium Chloride) 275 mls @ 167 mls/hr IV Q12H [facility] Last Admin: 09/29/18 21:04 Dose: 167 mls/hr Documented by: Labs: Sodium 138 mmol/L (136-145) 09/28/18 05:50 Potassium 3.8 mmol/L (3.5-5.1) 09/28/18 05:50 Chloride 106 mmol/L (98-107) 09/28/18 05:50 Carbon Dioxide 29.0 mmol/L (21.0-32.0) 09/28/18 05:50 3 (5-15) L 09/28/18 05:50 BUN 14 mg/dL (7-18) 09/28/18 05:50 0.61 mg/dL (0.55-1.02) 09/28/18 05:50 Est GFR (MDRD) Af Amer 129 mL/min (>60) 09/28/18 05:50 Est GFR (MDRD) Non-Af 106 mL/min (>60) 09/28/18 05:50 23.0 RATIO (10-20) H 09/28/18 05:50 Glucose 149 mg/dL (74-106) H 09/28/18 05:50 Vancomycin Trough 18.7 ug/mL (5.0-15.0) H 09/30/18 08:15 Random Vancomycin 19.7 ug/mL (0.0-15.0) H 09/26/18 22:10 Microbiology: Microbiology 09/26/18 19:19 Abs - Right Foot Gram Stain - Final 09/26/18 19:19 Abs - Right Foot Wound Culture - Preliminary Presumptive C albicans Meth. resistant Staph. aureus Gram negative joyce Staphylococcus epidermidis 09/26/18 19:19 Abs - Right Foot Anaerobic Culture - Preliminary Checking for anaerobes, further studies to follow. 09/26/18 19:19 Biopsy - Bone Gram Stain - Final 09/26/18 19:19 Biopsy - Bone Wound Culture - Preliminary Enterococcus faecalis Gram Positive Cocci Corynebacterium striatum Staphylococcus epidermidis 09/26/18 19:19 Biopsy - Bone Anaerobic Culture - Preliminary Checking for anaerobes, further studies to follow. 09/26/18 19:19 Biopsy - Bone Gram Stain - Final 09/26/18 19:19 Biopsy - Bone Wound Culture - Final Corynebacterium striatum 09/26/18 19:19 Biopsy - Bone Anaerobic Culture - Preliminary Checking for anaerobes, further studies to follow. 09/26/18 19:19 Biopsy - Bone Gram Stain - Final 09/26/18 19:19 Biopsy - Bone Wound Culture - Preliminary Staphylococcus species Corynebacterium striatum 09/26/18 19:19 Biopsy - Bone Anaerobic Culture - Preliminary Checking for anaerobes, further studies to follow. 09/26/18 19:19 Biopsy - Bone Gram Stain - Final 09/26/18 19:19 Biopsy - Bone Wound Culture - Preliminary Staphylococcus haemolyticus Corynebacterium striatum 09/26/18 19:19 Biopsy - Bone Anaerobic Culture - Preliminary Checking for anaerobes, further studies to follow. 09/26/18 19:19 Biopsy - Bone Gram Stain - Final 09/26/18 19:19 Biopsy - Bone Wound Culture - Final Corynebacterium striatum 09/26/18 19:19 Biopsy - Bone Anaerobic Culture - Preliminary No growth in 48 hours. 09/26/18 16:40 Blood Culture (Wb) - Anticubital Right Blood Culture - Preliminary No growth in 48 hours. 09/26/18 16:15 Blood Culture (Wb) #2 - Anticubital Left Blood Culture - Preliminary No growth in 48 hours. 09/28/18 11:25 Stool Stool Occult Blood (OSMAR) - Final Goal Trough: 15-20 mcg/mL Pharmacy Plan for Drug Dosing: The patient had a vancomycin trough drawn after a previous dose adjustment, which resulted in a value of 18.7 (~11hrs from last administered dose). This is within the patient's goal trough range of 15-20. Will continue current regimen and recheck a trough in 4 days per protocol. Should the patient have any significant change in renal function, condition, etc. will plan on drawing a trough sooner. PLAN/RECOMMENDATIONS 1. Continue vancomycin 1250MG IV Q12hrs 2. Trough scheduled 10/04/18 @0830 to reassess trough 3. Pharmacy Service will continue to monitor and adjust dosing as required.
[2018-09-30] MEDS: Ferrous Sulfate 325 MG Tablet PO ×2 (12:04→16:52)
[2018-09-30] MEDS: Insulin Lispro 100 UNIT/ML INSULN.PEN SC ×3 (12:05→21:23)
[2018-09-30] MEDS: Nystatin Powder 15gm Bottle 1 APPLIC TOPICAL ×2 (12:06→21:23)
[2018-09-30 12:20] LABS: Bedside Glucose 274 mg/dL (70-110)
[2018-09-30 14:05] VITALS: BP 130/66; PULSE 73; RESP 18; TEMP 36.7; O2SAT 98
[2018-09-30 16:41] LABS: Bedside Glucose 274 mg/dL (70-110)
[2018-09-30 20:09] VITALS: BP 125/62; PULSE 74; RESP 18; TEMP 37.2; O2SAT 95
[2018-09-30] MEDS: Atorvastatin Calcium 40 MG Tablet PO (21:23)
[2018-09-30 21:41] LABS: Bedside Glucose 215 mg/dL (70-110)
[2018-10-01] MEDS: DiphenhydrAMINE 25 MG Capsule PO (00:27)
[2018-10-01 02:15] VITALS: BP 146/74; PULSE 71; RESP 18; TEMP 37; O2SAT 97
[2018-10-01] MEDS: 0.9% NaCl PICC Flush IV ×4 (06:32→22:56)
[2018-10-01 06:36] LABS: Bedside Glucose 129 mg/dL (70-110)
[2018-10-01] MEDS: Aspirin 81 MG TAB.CHEW PO (07:57)
[2018-10-01] MEDS: oxyCODONE 5 MG Tablet PO (07:57)
[2018-10-01] MEDS: Glimepiride 4 MG Tablet PO (07:57)
[2018-10-01] MEDS: Multivitamins,Ther W-Minerals Tablet 1 TABLET PO (07:57)
[2018-10-01 08:03] VITALS: BP 122/66; PULSE 79; RESP 18; TEMP 36.6; O2SAT 98
--- NOTE | 2018-10-01 08:42 | PCM.PROGNOTE ---
Subjective: Chief complaint: Follow-up after admission for right foot osteomyelitis/abscess/gangrene debridement of all nonviable soft tissue and bone of the right foot with transmetatarsal amputation. Patient seen and examined. No acute events overnight. Remained stable, no complaints. Right foot pain is manageable with Tylenol. Her vital signs are stable. - Physical Exam General: Alert, Oriented x3, Cooperative, No apparent distress HEENT: Atraumatic, PERRLA, EOMI, Normocephalic Oral: Moist Mucosa, No Gingival or Mucosal Lesions/ Ulcerations Neck: Supple, No JVD, Negative Carotid Bruits, Trachea Midline, Thyroid Normal Size and Texture Lungs: Clear to auscultation, Normal air movement, No rhonchi, No wheeze, No rales Cardiovascular: Regular rate, Regular Rhythm, Normal S1, Normal S2, PMI Normal Abdomen: Bowel Sounds Present, Soft, Non Tender, Non-Distended, No Hepato-splenomegaly Extremities: No clubbing, No cyanosis, No edema Skin: No rashes, No breakdown Lymphatic: No Cervical, Supraclavicular, or Inguinal Adenopathy Neurological: Cranial nerves II-XII grossly intact, Neuro grossly intact Psych/Mental Status: Normal Affect, Appropriate, Alert and oriented to time, place, person, mood and affect Vital Signs Temp Pulse Resp BP Pulse Ox 98 F 79 18 122/66 H 98 10/01/18 08:03 10/01/18 08:03 10/01/18 08:03 10/01/18 08:03 10/01/18 08:03 Oxygen Flow Rate (L/min) 2 Oxygen Delivery Method Room Air Weight: 146 lb 1.605 oz Body Mass Index (BMI) 25.0 Finger Stick Blood Glucose 401 Intake and Output for Last 24 Hours 09/29/18 09/30/18 10/01/18 23:59 23:59 23:59 Intake Total 2551 / 2551 2300 / 2300 1367 / 1367 Output Total 1500 / 1500 Balance 2551 / 2551 2300 / 2300 -133 / -133 Microbiology Past 72 Hours 09/26/18 19:19 Gram Stain - Final Abs - Right Foot Wound Culture - Final Presumptive C albicans Meth. resistant Staph. aureus Alcaligenes faecalis ssp faeca Staphylococcus epidermidis Anaerobic Culture - Preliminary Checking for anaerobes, further studies to follow. 09/26/18 19:19 Gram Stain - Final Biopsy - Bone Wound Culture - Preliminary Staphylococcus species Corynebacterium striatum Anaerobic Culture - Final No anaerobic bacteria isolated. 09/26/18 19:19 Gram Stain - Final Biopsy - Bone Wound Culture - Preliminary Enterococcus faecalis Gram Positive Cocci Corynebacterium striatum Staphylococcus epidermidis Pratibha albicans Anaerobic Culture - Preliminary Checking for anaerobes, further studies to follow. 09/26/18 19:19 Gram Stain - Final Biopsy - Bone Wound Culture - Preliminary Staphylococcus haemolyticus Corynebacterium striatum Pratibha albicans Anaerobic Culture - Preliminary Checking for anaerobes, further studies to follow. 09/26/18 19:19 Gram Stain - Final Biopsy - Bone Wound Culture - Final Corynebacterium striatum Anaerobic Culture - Preliminary Checking for anaerobes, further studies to follow. 09/26/18 19:19 Gram Stain - Final Biopsy - Bone Wound Culture - Final Corynebacterium striatum Anaerobic Culture - Preliminary No growth in 48 hours. 09/26/18 16:40 Blood Culture - Preliminary Blood Culture (Wb) - Anticubital Right No growth in 48 hours. 09/26/18 16:15 Blood Culture - Preliminary Blood Culture (Wb) #2 - Anticubital Left No growth in 48 hours. 09/28/18 11:25 Stool Occult Blood (OSMAR) - Final Stool Laboratory Tests Past 24 Hrs 09/30/18 08:15 Vancomycin Trough 18.7 H POC Glucose 10/01/18 09/30/18 09/30/18 06:29 21:22 16:34 POC Glucose 129 H 215 H 274 H 09/30/18 12:02 POC Glucose 274 H Medical Necessity - Tobacco Use Smoking Status: Former smoker Tobacco Use: Cigarettes Assessment/Plan All Active Problems Osteomyelitis (Acute) Necrosis of toe (Acute) Osteomyelitis of right foot (Acute) This is a 58 years old female patient was [facility] from the [facility] to the ED for nonhealing right foot wound and black ulceration of the toes of the right foot, found to have osteomyelitis of the right foot with abscess, gangrene and nonhealing necrotic ulcer status post debridement of all nonviable, infected and necrotic soft tissue and bone as well as transmetatarsal amputation. #1 acute right foot osteomyelitis/abscess/necrotizing fasciitis/gangrene with nonhealing ulcer: Status post debridement of all nonviable and infected tissues and bone, status post bone biopsy and transmetatarsal amputation. Postoperative day 5. Remained on IV vancomycin and Zosyn. Wound culture revealed MRSA, staph epidermidis and gram-negative rods, final is pending. Bone biopsy revealed staph species and Corynebacterium, final is pending. Vital signs are stable, afebrile, no leukocytosis. Infectious disease and podiatry medicine are on the case. Plan to continue same treatment, awaiting final results to decide on IV antibiotics. #2 Iron deficiency anemia: She is on iron supplement. Most recent hemoglobin is 8.7 g/dL after she received 1 unit of packed RBCs. Again, no obvious active bleeding. This anemia is fairly acute, hemoglobin has been dropping since the beginning of this month and previously, it was normal. Stool for occult blood was negative. #3 hypokalemia: Potassium replaced and corrected, most recent potassium is 3.8. #4 type 2 diabetes mellitus: She is on insulin sliding scale. Blood sugar has been under fair control. Plan to resume glimepiride, keep holding metformin. #5 Hypertension: Blood pressure stable, continue lisinopril. #6 hyperlipidemia: Continue statins. #7 peripheral vascular disease: Continue aspirin, statins and Plavix. #8 DVT prophylaxis: Subcu Lovenox. This note was generated with [employer] dictation software. It may contain incorrect words, spelling, and punctuation that were not noted in checking the note before signing. Code Visit Inpatient E&M: 21818 Subs Hosp L2
[2018-10-01] MEDS: Enoxaparin 40 MG/0.4 ML Syringe SC (09:48)
[2018-10-01] MEDS: Lisinopril 2.5 MG Tablet PO (09:48)
[2018-10-01] MEDS: Ascorbic Acid 500 MG Tablet PO (09:48)
[2018-10-01] MEDS: Glucerna Shake 120 ML LIQUID PO ×4 (09:53→21:33)
[2018-10-01] MEDS: Nystatin Powder 15gm Bottle 1 APPLIC TOPICAL ×2 (09:57→21:26)
[2018-10-01 11:50] LABS: Bedside Glucose 283 mg/dL (70-110)
[2018-10-01] MEDS: Insulin Lispro 100 UNIT/ML INSULN.PEN SC ×3 (11:52→21:26)
[2018-10-01] MEDS: Ferrous Sulfate 325 MG Tablet PO ×2 (11:56→16:52)
[2018-10-01 16:56] VITALS: BP 131/58; PULSE 79; RESP 18; TEMP 37.2; O2SAT 98
[2018-10-01 17:01] LABS: Bedside Glucose 272 mg/dL (70-110)
[2018-10-01 21:14] VITALS: BP 138/51; PULSE 79; RESP 16; TEMP 37.2; O2SAT 97
[2018-10-01] MEDS: Atorvastatin Calcium 40 MG Tablet PO (21:33)
[2018-10-01 22:00] LABS: Bedside Glucose 196 mg/dL (70-110)
[2018-10-02 02:30] VITALS: BP 119/65; PULSE 74; RESP 16; TEMP 36.9; O2SAT 94
[2018-10-02] MEDS: Acetaminophen 325 MG Tablet 650 MG PO (06:36)
[2018-10-02] MEDS: Insulin Lispro 100 UNIT/ML INSULN.PEN SC ×3 (06:37→17:27)
[2018-10-02 07:06] LABS: Bedside Glucose 178 mg/dL (70-110)
[2018-10-02 09:07] VITALS: BP 101/57; PULSE 74; RESP 18; TEMP 36.8; O2SAT 94
[2018-10-02] MEDS: Aspirin 81 MG TAB.CHEW PO (09:16)
[2018-10-02] MEDS: Multivitamins,Ther W-Minerals Tablet 1 TABLET PO (09:16)
[2018-10-02] MEDS: 0.9% NaCl PICC Flush IV ×2 (09:16→11:25)
[2018-10-02] MEDS: Glimepiride 4 MG Tablet PO (09:16)
--- NOTE | 2018-10-02 09:44 | CASEMGMT ---
Social Work Note SW faxed updated clinicals to [facility]. Plan: [facility] pending pre-cert Maddie Mcneill BODY TRIMMER UPHOLSTERER, MANUFACTURING LEAD
--- NOTE | 2018-10-02 10:17 | NURSING ---
[facility]waiting precert to [facility]. will hold off on wound VAC change until we know if patient is going to the penitentiary or not today.
[2018-10-02] MEDS: Lisinopril 2.5 MG Tablet PO (11:23)
[2018-10-02] MEDS: Ascorbic Acid 500 MG Tablet PO (11:23)
[2018-10-02] MEDS: Enoxaparin 40 MG/0.4 ML Syringe SC (11:24)
[2018-10-02] MEDS: Nystatin Powder 15gm Bottle 1 APPLIC TOPICAL (11:24)
[2018-10-02 11:30] VITALS: PULSE 76
[2018-10-02] MEDS: Ferrous Sulfate 325 MG Tablet PO ×2 (11:51→17:27)
[2018-10-02 12:35] LABS: Bedside Glucose 287 mg/dL (70-110)
--- NOTE | 2018-10-02 13:56 | PCM.PROGNOTE ---
Subjective: Chief complaint: Follow-up after admission for right foot osteomyelitis/abscess/gangrene debridement of all nonviable soft tissue and bone of the right foot with transmetatarsal amputation. Patient seen and examined. No acute events overnight. She denies any complaints, right foot pain is getting better, manageable. Her vital signs are stable. - Physical Exam General: Alert, Oriented x3, Cooperative, No apparent distress HEENT: Atraumatic, PERRLA, EOMI, Normocephalic Oral: Moist Mucosa, No Gingival or Mucosal Lesions/ Ulcerations Neck: Supple, No JVD, Negative Carotid Bruits, Trachea Midline, Thyroid Normal Size and Texture Lungs: Clear to auscultation, Normal air movement, No rhonchi, No wheeze, No rales, Diminished Cardiovascular: Regular rate, Regular Rhythm, Normal S1, Normal S2, PMI Normal Abdomen: Bowel Sounds Present, Soft, Non Tender, Non-Distended, No Hepato-splenomegaly Extremities: No clubbing, No cyanosis, No edema Skin: No rashes, Ulcer/ Wound Lymphatic: No Cervical, Supraclavicular, or Inguinal Adenopathy Neurological: Cranial nerves II-XII grossly intact, Neuro grossly intact Psych/Mental Status: Normal Affect, Appropriate, Alert and oriented to time, place, person, mood and affect Vital Signs Temp Pulse Resp BP Pulse Ox 98.2 F 74 18 101/57 L 94 10/02/18 09:07 10/02/18 09:07 10/02/18 09:07 10/02/18 09:07 10/02/18 09:07 Oxygen Flow Rate (L/min) 2 Oxygen Delivery Method Room Air Weight: 146 lb 1.605 oz Body Mass Index (BMI) 25.0 Finger Stick Blood Glucose 401 Intake and Output for Last 24 Hours 09/30/18 10/01/18 10/02/18 23:59 23:59 23:59 Intake Total 2300 / 2300 4067 / 5178 2695 / 2695 Output Total 1500 / 1500 300 / 300 Balance 2300 / 2300 2567 / 3678 2395 / 2395 Microbiology Past 72 Hours 09/26/18 19:19 Gram Stain - Final Biopsy - Bone Wound Culture - Final Enterococcus faecalis Corynebacterium striatum Staphylococcus epidermidis Pratibha albicans Anaerobic Culture - Preliminary Checking for anaerobes, further studies to follow. 09/26/18 19:19 Gram Stain - Final Abs - Right Foot Wound Culture - Final Presumptive C albicans Meth. resistant Staph. aureus Alcaligenes faecalis ssp faeca Staphylococcus epidermidis Anaerobic Culture - Final No anaerobic bacteria isolated. 09/26/18 19:19 Gram Stain - Final Biopsy - Bone Wound Culture - Final Corynebacterium striatum Anaerobic Culture - Final No anaerobic bacteria isolated. 09/26/18 19:19 Gram Stain - Final Biopsy - Bone Wound Culture - Final Staphylococcus haemolyticus Corynebacterium striatum Pratibha albicans Anaerobic Culture - Final No anaerobic bacteria isolated. 09/26/18 19:19 Gram Stain - Final Biopsy - Bone Wound Culture - Final Corynebacterium striatum Anaerobic Culture - Final No anaerobic bacteria isolated. 09/26/18 16:40 Blood Culture - Final Blood Culture (Wb) - Anticubital Right No growth in 5 days. 09/26/18 16:15 Blood Culture - Final Blood Culture (Wb) #2 - Anticubital Left No growth in 5 days. 09/26/18 19:19 Gram Stain - Final Biopsy - Bone Wound Culture - Final Staphylococcus haemolyticus Corynebacterium striatum Anaerobic Culture - Final No anaerobic bacteria isolated. POC Glucose 10/02/18 10/02/18 10/01/18 11:46 06:33 21:25 POC Glucose 287 H 178 H 196 H 10/01/18 16:47 POC Glucose 272 H Medical Necessity - Tobacco Use Smoking Status: Former smoker Tobacco Use: Cigarettes Assessment/Plan All Active Problems Osteomyelitis (Acute) Necrosis of toe (Acute) Osteomyelitis of right foot (Acute) This is a 58 years old female patient was [facility] from the senior care to the ED for nonhealing right foot wound and black ulceration of the toes of the right foot, found to have osteomyelitis of the right foot with abscess, gangrene and nonhealing necrotic ulcer status post debridement of all nonviable, infected and necrotic soft tissue and bone as well as transmetatarsal amputation. #1 acute right foot osteomyelitis/abscess/necrotizing fasciitis/gangrene with nonhealing ulcer: Status post debridement of all nonviable and infected tissues and bone, status post bone biopsy and transmetatarsal amputation. Postoperative day 6. Remained on IV vancomycin and Zosyn. Wound culture revealed MRSA, staph epidermidis and Alcaligenes faecalis. Bone biopsy revealed staph hemolyticus and Corynebacterium. Vital signs are stable, remained afebrile, no leukocytosis. Infectious disease and podiatry medicine are on the case. Awaiting ID recommendation about IV abx, awaiting placement to shelter facility. #2 Iron deficiency anemia: She is on iron supplement. Most recent hemoglobin is 8.7 g/dL after she received 1 unit of packed RBCs. Again, no obvious active bleeding. This anemia is fairly acute, hemoglobin has been dropping since the beginning of this month and previously, it was normal. Stool for occult blood was negative. #3 hypokalemia: Potassium replaced and corrected, most recent potassium is 3.8. #4 type 2 diabetes mellitus: She is on insulin sliding scale. Blood sugar has been under fair control. Plan to resume glimepiride, keep holding metformin. #5 Hypertension: Blood pressure stable, continue lisinopril. #6 hyperlipidemia: Continue statins. #7 peripheral vascular disease: Continue aspirin, statins and Plavix. #8 DVT prophylaxis: Subcu Lovenox. This note was generated with [email or web address] dictation software. It may contain incorrect words, spelling, and punctuation that were not noted in checking the note before signing. Code Visit Inpatient E&M: 93764 Subs Hosp L2
[2018-10-02] MEDS: Fluconazole 100 MG Tablet 400 MG PO (14:21)
[2018-10-02] MEDS: Glucerna Shake 120 ML LIQUID PO (14:21)
[2018-10-02] MEDS: Ciprofloxacin 500 MG Tablet PO (14:21)
--- NOTE | 2018-10-02 14:24 | PN.ID_ITS ---
Subjective: Some loose stool, no fever, no abd pain. - Physical Exam General: Alert, Cooperative, No apparent distress Lungs: Clear to auscultation, Normal air movement Cardiovascular: Regular rate, Regular Rhythm Abdomen: Soft, Non Tender, Non-Distended Skin: Ulcer/ Wound - foot wrapped, wound vac in place Vital Signs Temp Pulse Resp BP Pulse Ox 98.2 F 74 18 101/57 L 94 10/02/18 09:07 10/02/18 09:07 10/02/18 09:07 10/02/18 09:07 10/02/18 09:07 Oxygen Flow Rate (L/min) 2 Oxygen Delivery Method Room Air Weight: 66.27 kg Body Mass Index (BMI) 25.0 Finger Stick Blood Glucose 401 Intake and Output for Last 24 Hours 09/30/18 10/01/18 10/02/18 23:59 23:59 23:59 Intake Total 2300 / 2300 4067 / 5178 2695 / 2695 Output Total 1500 / 1500 300 / 300 Balance 2300 / 2300 2567 / 3678 2395 / 2395 Microbiology Past 72 Hours 09/26/18 19:19 Gram Stain - Final Biopsy - Bone Wound Culture - Final Enterococcus faecalis Corynebacterium striatum Staphylococcus epidermidis Pratibha albicans Anaerobic Culture - Preliminary Checking for anaerobes, further studies to follow. 09/26/18 19:19 Gram Stain - Final Abs - Right Foot Wound Culture - Final Presumptive C albicans Meth. resistant Staph. aureus Alcaligenes faecalis ssp faeca Staphylococcus epidermidis Anaerobic Culture - Final No anaerobic bacteria isolated. 09/26/18 19:19 Gram Stain - Final Biopsy - Bone Wound Culture - Final Corynebacterium striatum Anaerobic Culture - Final No anaerobic bacteria isolated. 09/26/18 19:19 Gram Stain - Final Biopsy - Bone Wound Culture - Final Staphylococcus haemolyticus Corynebacterium striatum Pratibha albicans Anaerobic Culture - Final No anaerobic bacteria isolated. 09/26/18 19:19 Gram Stain - Final Biopsy - Bone Wound Culture - Final Corynebacterium striatum Anaerobic Culture - Final No anaerobic bacteria isolated. 09/26/18 16:40 Blood Culture - Final Blood Culture (Wb) - Anticubital Right No growth in 5 days. 09/26/18 16:15 Blood Culture - Final Blood Culture (Wb) #2 - Anticubital Left No growth in 5 days. 09/26/18 19:19 Gram Stain - Final Biopsy - Bone Wound Culture - Final Staphylococcus haemolyticus Corynebacterium striatum Anaerobic Culture - Final No anaerobic bacteria isolated. POC Glucose 10/02/18 10/02/18 10/01/18 11:46 06:33 21:25 POC Glucose 287 H 178 H 196 H 10/01/18 16:47 POC Glucose 272 H Medical Necessity - Tobacco Use Smoking Status: Former smoker Tobacco Use: Cigarettes Route of nutrition/ use of supplements: [] Nutritional Intake: [] IV Site: [] Robles Catheter: [] - Assessment/Plan Antibiotics: [] Assessment/Plan: [] R foot nec fasc, osteo - now s/p TMA by Dr. Cardona. On vanc/zosyn for broad empiric coverage. Clearance cxs (+), so will need 6 weeks iv abx, stop date 11/07/18. Surg cx showing e.faecalis, corynebacterium, MRSE, staph haemo, and C.alb. Change abx to vanc with po cipro/fluc. QTC 450 on admit. Weekly bmp, cbc, LFT, esr, and vanc trough. ID followup in 3 weeks. Will follow, d/w Dr. Arriaza and case management associate, rx written
--- NOTE | 2018-10-02 14:39 | PCM.TXEXTCAR ---
- Diet 09/26/18 15:33 Diet: Calorie Controlled Food consistency:: Regular Liquid Consistency:: Regular/Thin How many daily calories?: 1800 calorie - Routine Orders/Code Status Code Status: Full Code - Wound(s) right foot Wound Type: Open Surgical Wound right hallux amputation site Wound Type: Neuropathic/Diabetic Foot Ulcer Dressing Change: Wet to Dry Dressing right plantar foot Wound Type: Neuropathic/Diabetic Foot Ulcer Dressing Change: Wet to Dry Dressing rt foot Wound Type: Neuropathic/Diabetic Foot Ulcer Dressing Change: applied KCI wound VAC - Suggestions for Active Care Change Position every (hours): 3 Hours to sit in a chair: 2 Times a day to sit in chair: 3 - Therapies Weight Bearing: Non weight bearing Physical Therapy: Eval and Treat Occupational Therapy: Eval and Treat - Allergies/Procedures Done in Hospital Allergies/Adverse Reactions: Allergies orange juice Adverse Reaction (Verified 09/26/18 15:53) Diarrhea - Type of Care/Length of Stay Estimated LOS: Convalescent Care Less Than 30 days Type of Care Needed: Skilled Rehab Potential: Good Prognosis: Good - Additional Orders/Day of Discharge H&P will serve as current which was dated: 09/26/18 Day of Discharge: 10/02/18 - Dietary and Speech Recommendations Dietitian Recommendations/Changes: Recommend continue 1800 calorie controlled diet. Will continue Glucerna shake with medpass for wound healing. Will continue [place]land 1 packet BID for wound healing. - Follow Up Care Primary Care Physician: Marquis Guerra Chi, MD [Primary Care Provider] - Please follow up with your Primary Care Physician in: 1 week. Please Follow Up With: Pete Beth MD When: 3 weeks. Please Follow Up With: Jerel Cardona DPM When: 2 weeks.
--- NOTE | 2018-10-02 15:15 | NURSING ---
wound photo: right foot
--- NOTE | 2018-10-02 15:16 | NURSING ---
wound photo: right foot
--- NOTE | 2018-10-02 15:23 | CASEMGMT ---
Social Work Note SW faxed antibiotics scripts to [facility]. Plan: [facility] pending pre-cert Maddie Mcneill DIAMOND GRADER, OPHTHALMIC MEDICAL ASSISTANT
[2018-10-02 16:20] VITALS: BP 143/73; PULSE 75; RESP 18; TEMP 37.1; O2SAT 95
[2018-10-02 16:51] LABS: Bedside Glucose 293 mg/dL (70-110)
--- NOTE | 2018-10-02 17:08 | NURSING ---
aware per assistant secretary, [facility] admission coordinator Mariah called that we have precert, pt ok to come tonight. Dr. Arriaza informed as manager social responsibility gone for the day.
--- NOTE | 2018-10-02 17:26 | PCA ---
called transport nathanael and set it up to take patient by cot back to [facility]
--- NOTE | 2018-10-02 20:57 | PCM.DC.SUM ---
Discharge Date and Diagnosis Date of Admission: 09/26/18 Date of Discharge: 10/02/18 - Primary Discharge Diagnosis #1 polymicrobial acute right foot osteomyelitis/abscess/necrotizing fasciitis with gangrene and nonhealing ulcer, status post debridement of all nonviable and infected tissues and bones, status post bone biopsy and transmetatarsal amputation. #2 hypokalemia. #3 iron deficiency anemia, probably acute. - Secondary Discharge Diagnosis Chronic Problems DM type 2 (diabetes mellitus, type 2) (Chronic) Hypertension (Chronic) Hyperlipidemia (Chronic) Gas gangrene (Chronic) Type 2 diabetes mellitus with diabetic polyneuropathy (Chronic) Abscess of right foot (Chronic) History of PAD (Chronic) Osteomyelitis of foot, right, acute (Chronic) PAD (peripheral artery disease) (Chronic) Gangrene of toe of right foot (Chronic) Hospital Course and Treatment Imaging Results: Clinical Impression(s) from Imaging Studies Foot X-Ray 09/26/18 12:06 IMPRESSION: No demonstrated fracture or erosive osseous lesion. Subcutaneous emphysema noted around the proximal phalanx of the second toe and the distal aspect of the third metatarsal suggesting inflammatory process such as osteomyelitis Calcaneal spurs Electronically Signed: Evelio Denney MD at 12:49 EDT , Service support , Foot X-Ray 09/26/18 19:10 IMPRESSION: Status post amputation of the toes through the distal metatarsal shafts Electronically Signed: Jerel Maya MD at 19:29 EDT , Service support , Microbiology 09/26/18 19:19 Biopsy - Bone Gram Stain - Final 09/26/18 19:19 Biopsy - Bone Wound Culture - Final Enterococcus faecalis Corynebacterium striatum Staphylococcus epidermidis Pratibha albicans 09/26/18 19:19 Biopsy - Bone Anaerobic Culture - Preliminary Checking for anaerobes, further studies to follow. 09/26/18 19:19 Abs - Right Foot Gram Stain - Final 09/26/18 19:19 Abs - Right Foot Wound Culture - Final Presumptive C albicans Meth. resistant Staph. aureus Alcaligenes faecalis ssp faeca Staphylococcus epidermidis 09/26/18 19:19 Abs - Right Foot Anaerobic Culture - Final No anaerobic bacteria isolated. 09/26/18 19:19 Biopsy - Bone Gram Stain - Final 09/26/18 19:19 Biopsy - Bone Wound Culture - Final Corynebacterium striatum 09/26/18 19:19 Biopsy - Bone Anaerobic Culture - Final No anaerobic bacteria isolated. 09/26/18 19:19 Biopsy - Bone Gram Stain - Final 09/26/18 19:19 Biopsy - Bone Wound Culture - Final Staphylococcus haemolyticus Corynebacterium striatum Pratibha albicans 09/26/18 19:19 Biopsy - Bone Anaerobic Culture - Final No anaerobic bacteria isolated. 09/26/18 19:19 Biopsy - Bone Gram Stain - Final 09/26/18 19:19 Biopsy - Bone Wound Culture - Final Corynebacterium striatum 09/26/18 19:19 Biopsy - Bone Anaerobic Culture - Final No anaerobic bacteria isolated. 09/26/18 16:40 Blood Culture (Wb) - Anticubital Right Blood Culture - Final No growth in 5 days. 09/26/18 16:15 Blood Culture (Wb) #2 - Anticubital Left Blood Culture - Final No growth in 5 days. 09/26/18 19:19 Biopsy - Bone Gram Stain - Final 09/26/18 19:19 Biopsy - Bone Wound Culture - Final Staphylococcus haemolyticus Corynebacterium striatum 09/26/18 19:19 Biopsy - Bone Anaerobic Culture - Final No anaerobic bacteria isolated. 09/28/18 11:25 Stool Stool Occult Blood (OSMAR) - Final Consultations 09/26/18 15:33 Consult: Onc/Wound/teacher private Routine Comment: Dr. cardona, podiatry medicine. Dr. Beth, infectious disease. Operations: - Procedures: - - Debridement, bone biopsy and transmetatarsal ambulation of the right foot osteomyelitis. Summary of Care Provided: Patient seen and examined on the day of discharge and appeared to be stable to be discharged to detention facility. Right foot pain is under control. She has been afebrile, vital signs are stable. This is a 58 years old female [facility] for nonhealing right foot wound and black ulceration of the toes of the right foot, found to have osteomyelitis of the right foot with abscess, gangrene and nonhealing necrotic ulcer status post debridement of all nonviable, infected and necrotic soft tissue and bone as well as transmetatarsal amputation. #1 acute right foot osteomyelitis/abscess/necrotizing fasciitis/gangrene with nonhealing ulcer: Status post debridement of all nonviable and infected tissues and bone, status post bone biopsy and transmetatarsal amputation. Initially was treated with IV vancomycin and Zosyn. Wound culture revealed MRSA, staph epidermidis and Alcaligenes faecalis. Bone biopsy revealed multiple organisms including corynebacterium stratum, staph hemolyticus, staph epidermidis, Enterococcus faecalis and Pratibha albicans.blood cultures showed no growth in 5 days. Infectious disease consulted and she was started on IV vancomycin, oral ciprofloxacin and Diflucan upon discharge. #2 Iron deficiency anemia: Seems to be acute, it is iron deficiency. Patient received 1 unit of packed RBCs. Upon discharge, hemoglobin was 8.7 g/dL. She was started on iron supplement. There was no obvious active bleeding. Stool for occult blood was negative. #3 hypokalemia: Replaced and corrected per protocol. #4 type 2 diabetes mellitus: Started back on glimepiride and metformin upon discharge. #5 Hypertension: Blood pressure has been stable throughout admission, continued on lisinopril upon discharge. #6 hyperlipidemia: Continued on statins. Patient discharged to detention facility in a stable medical condition, discharged on IV vancomycin for 6 weeks of treatment with stop date November 07, 2018, oral ciprofloxacin and Diflucan, plan to follow-up with infectious disease in 3 weeks podiatry medicine in 2 weeks and follow-up with PCP in 1 week. This note was generated with [employer] dictation software. It may contain incorrect words, spelling, and punctuation that were not noted in checking the note before signing. - Physical Exam General: Alert, Oriented x3, Cooperative, No apparent distress HEENT: Atraumatic, PERRLA, EOMI, Normocephalic Oral: Moist Mucosa, No Gingival or Mucosal Lesions/ Ulcerations Neck: Supple, No JVD, Negative Carotid Bruits, Trachea Midline, Thyroid Normal Size and Texture Lungs: Clear to auscultation, Normal air movement, No rhonchi, No wheeze, No rales Cardiovascular: Regular rate, Regular Rhythm, Normal S1, Normal S2, PMI Normal Abdomen: Bowel Sounds Present, Soft, Non Tender, Non-Distended, No Hepato-splenomegaly Extremities: No clubbing, No cyanosis, No edema Skin: No rashes, No breakdown Lymphatic: No Cervical, Supraclavicular, or Inguinal Adenopathy Neurological: Cranial nerves II-XII grossly intact, Neuro grossly intact Psych/Mental Status: Normal Affect, Appropriate Vital Signs Temp Pulse Resp BP Pulse Ox 98.7 F 75 18 143/73 H 95 10/02/18 16:20 10/02/18 16:20 10/02/18 16:20 10/02/18 16:20 10/02/18 16:20 Oxygen Flow Rate (L/min) 2 Oxygen Delivery Method Room Air Weight: 146 lb 1.605 oz Body Mass Index (BMI) 25.0 Finger Stick Blood Glucose 401 Intake and Output for Last 24 Hours 09/30/18 10/01/18 10/02/18 23:59 23:59 23:59 Intake Total 2300 / 2300 4067 / 5178 2695 / 2695 Output Total 1500 / 1500 300 / 300 Balance 2300 / 2300 2567 / 3678 2395 / 2395 Microbiology Past 72 Hours 09/26/18 19:19 Gram Stain - Final Biopsy - Bone Wound Culture - Final Enterococcus faecalis Corynebacterium striatum Staphylococcus epidermidis Pratibha albicans Anaerobic Culture - Preliminary Checking for anaerobes, further studies to follow. 09/26/18 19:19 Gram Stain - Final Abs - Right Foot Wound Culture - Final Presumptive C albicans Meth. resistant Staph. aureus Alcaligenes faecalis ssp faeca Staphylococcus epidermidis Anaerobic Culture - Final No anaerobic bacteria isolated. 09/26/18 19:19 Gram Stain - Final Biopsy - Bone Wound Culture - Final Corynebacterium striatum Anaerobic Culture - Final No anaerobic bacteria isolated. 09/26/18 19:19 Gram Stain - Final Biopsy - Bone Wound Culture - Final Staphylococcus haemolyticus Corynebacterium striatum Pratibha albicans Anaerobic Culture - Final No anaerobic bacteria isolated. 09/26/18 19:19 Gram Stain - Final Biopsy - Bone Wound Culture - Final Corynebacterium striatum Anaerobic Culture - Final No anaerobic bacteria isolated. 09/26/18 16:40 Blood Culture - Final Blood Culture (Wb) - Anticubital Right No growth in 5 days. 09/26/18 16:15 Blood Culture - Final Blood Culture (Wb) #2 - Anticubital Left No growth in 5 days. 09/26/18 19:19 Gram Stain - Final Biopsy - Bone Wound Culture - Final Staphylococcus haemolyticus Corynebacterium striatum Anaerobic Culture - Final No anaerobic bacteria isolated. POC Glucose 10/02/18 10/02/18 10/02/18 16:24 11:46 06:33 POC Glucose 293 H 287 H 178 H 10/01/18 21:25 POC Glucose 196 H Home Medications: Medications to take at Discharge Aspirin [Aspirin, Baby] 81 mg PO DAILY@0800 12/27/15 Atorvastatin Calcium 40 mg PO QHS 09/18/18 Cholecalciferol (VIT D3) [Vitamin D3] 1,000 unit PO DAILY 09/18/18 Clopidogrel Bisulfate [Clopidogrel] 75 mg PO DAILY 09/18/18 Glimepiride 4 mg PO DAILY 09/18/18 Lisinopril 2.5 mg PO DAILY 09/18/18 metFORMIN HCl [Glucophage] 1,000 mg PO BIDCM 09/18/18 Acetaminophen 650 mg PO Q4H PRN PRN 09/26/18 Acetaminophen [Tylenol Suppository] 650 mg RECTAL Q4H PRN PRN 09/26/18 Ascorbic Acid [Vitamin C] 500 mg PO DAILY 09/26/18 Bisacodyl [Laxative Suppository] 10 mg VA DAILY PRN PRN 09/26/18 Dextrose [Glucose Gel] 38 gm PO PRN PRN 09/26/18 Glucagon,Human Recombinant [Glucagon Emergency Kit] 1 mg IJ PRN PRN 09/26/18 Guaifenesin [Robitussin] 10 ml PO Q4H PRN PRN 09/26/18 Mag Hydrox/Aluminum Hyd/Simeth [Antacid Liquid] 30 ml PO Q4H PRN PRN 09/26/18 Magnesium Hydroxide [Milk Of Magnesia] 30 ml PO DAILY PRN PRN 09/26/18 Multivit,Stress Formula/Zinc [Stress Formula with Zinc Tab] 1 ea PO BID 09/26/18 Multivit,Tx with Iron,Minerals [Thera-M] 1 ea PO DAILY 09/26/18 Na Phos,M-B/Na Phos,Di-Ba [Fleet Enema] 120 ml RECTAL DAILY PRN PRN 09/26/18 Nutritional Supplement [[facility] - ORANGE FLAVOR] 1 packet PO BIDCM 09/26/18 Ciprofloxacin [Cipro] 500 mg PO BID 37 Days #74 tab 10/02/18 Ferrous Sulfate 325 mg PO 1200,1700 #90 tab 10/02/18 Fluconazole [Diflucan] 400 mg PO DAILY 37 Days #37 tab 10/02/18 Lactobacillus Acidophilus [Acidophilus] 1 tab PO BID #30 tab 10/02/18 Oxycodone [Oxyir] 5 mg PO Q6H PRN PRN 5 Days #20 tab 10/02/18 Vancomycin IV 1,250 mg IV Q12H 37 Days #74 vial 10/02/18 Following Prescrptions Were Given to Patient: Lactobacillus Acidophilus [Acidophilus] 1 tab PO BID #30 tab Prescription Printed Ciprofloxacin [Cipro] 500 mg PO BID 37 Days #74 tab Prescription Printed Fluconazole [Diflucan] 400 mg PO DAILY 37 Days #37 tab Prescription Printed Ferrous Sulfate 325 mg PO 1200,1700 #90 tab Prescription Printed Oxycodone [Oxyir] 5 mg PO Q6H PRN PRN 5 Days #20 tab PRN Reason: Moderate Pain (4-6/10) Prescription Printed Vancomycin IV 1,250 mg IV Q12H 37 Days #74 vial Prescription Printed Primary Care Physician: Marquis Guerra Chi, MD [Primary Care Provider] - Please follow up with your Primary Care Physician in: 1 week. Please Follow Up With: Pete Beth MD When: 3 weeks. Please Follow Up With: Jerel Cardona DPM When: 2 weeks. Disposition: [facility] facility Minutes spent on discharge:: 35 Patient Condition:: Stable Medical Necessity - Tobacco Use Smoking Status: Former smoker Tobacco Use: Cigarettes Meaningful Use Info Meaningful Use Diagnoses (Choose all that apply): None applicable Code Visit Inpatient E&M: 68576 Disch Hosp
--- NOTE | 2018-10-02 21:48 | PCM.PROGNOTE ---
Subjective: Patient was seen today for follow up on right foot. Has wound vac in place, ready for [facility] to [facility]. No complaints of fever, chills, nausea or vomiting. - Physical Exam General: Alert, Oriented x3, Cooperative, No apparent distress Extremities: - - Wound vac inplace right foot and working well. Reviewed wound photos and foot looks good, no evidence of infection with noted granular and viable tissue to the wound site. Vital Signs Temp Pulse Resp BP Pulse Ox 98.7 F 75 18 143/73 H 95 10/02/18 16:20 10/02/18 16:20 10/02/18 16:20 10/02/18 16:20 10/02/18 16:20 Oxygen Flow Rate (L/min) 2 Oxygen Delivery Method Room Air Weight: 66.27 kg Body Mass Index (BMI) 25.0 Finger Stick Blood Glucose 401 Intake and Output for Last 24 Hours 09/30/18 10/01/18 10/02/18 23:59 23:59 23:59 Intake Total 2300 / 2300 4067 / 5178 2695 / 2695 Output Total 1500 / 1500 300 / 300 Balance 2300 / 2300 2567 / 3678 2395 / 2395 Microbiology Past 72 Hours 09/26/18 19:19 Gram Stain - Final Biopsy - Bone Wound Culture - Final Enterococcus faecalis Corynebacterium striatum Staphylococcus epidermidis Pratibha albicans Anaerobic Culture - Preliminary Checking for anaerobes, further studies to follow. 09/26/18 19:19 Gram Stain - Final Abs - Right Foot Wound Culture - Final Presumptive C albicans Meth. resistant Staph. aureus Alcaligenes faecalis ssp faeca Staphylococcus epidermidis Anaerobic Culture - Final No anaerobic bacteria isolated. 09/26/18 19:19 Gram Stain - Final Biopsy - Bone Wound Culture - Final Corynebacterium striatum Anaerobic Culture - Final No anaerobic bacteria isolated. 09/26/18 19:19 Gram Stain - Final Biopsy - Bone Wound Culture - Final Staphylococcus haemolyticus Corynebacterium striatum Pratibha albicans Anaerobic Culture - Final No anaerobic bacteria isolated. 09/26/18 19:19 Gram Stain - Final Biopsy - Bone Wound Culture - Final Corynebacterium striatum Anaerobic Culture - Final No anaerobic bacteria isolated. 09/26/18 16:40 Blood Culture - Final Blood Culture (Wb) - Anticubital Right No growth in 5 days. 07/23/19 16:15 Blood Culture - Final Blood Culture (Wb) #2 - Anticubital Left No growth in 5 days. 09/26/18 19:19 Gram Stain - Final Biopsy - Bone Wound Culture - Final Staphylococcus haemolyticus Corynebacterium striatum Anaerobic Culture - Final No anaerobic bacteria isolated. POC Glucose 10/02/18 10/02/18 10/02/18 16:24 11:46 06:33 POC Glucose 293 H 287 H 178 H 10/01/18 21:25 POC Glucose 196 H Medical Necessity - Tobacco Use Smoking Status: Former smoker Tobacco Use: Cigarettes Assessment/Plan All Active Problems Osteomyelitis (Acute) Necrosis of toe (Acute) Osteomyelitis of right foot (Acute) 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 No weightbearing right foot, keep right foot elevated at all times. Reviewed cultures, clearance fragments positive per microbiology, patient on IV antibiotics per Infectious Disease/Dr. Beth. Diabetes, and further medical management per medicine team. Continue with proper diet / nutrition support to optimize healing. [facility]. Patient to [facility] vac changes at [facility] q48-72 hours. Patient to follow up at wound center with Dr. Blanco or Justin within 1 week, sooner if needed.
== END 2018-10-02 19:00 | disposition skilled nursing facility (03) | DRG 616 ==
LOC: ED 13:47 → MS3 15:03
PROVIDERS: Podiatrist; Admitting Provider Internal Medicine; Emergency Provider Emergency Medicine; Family Provider Family Medicine Geriatric Medicine; PCP Family Medicine Geriatric Medicine; Referring Provider Internal Medicine; Visit Provider Hospitalist
PROC: 0Y6M0Z9 Detachment at Right Foot, Partial 1st Ray, Open Approach (ICD-10-PCS; principal; 2018-09-26 18:00)
DX: E11.69 Type 2 diabetes mellitus with other specified complication (principal); M72.6 Necrotizing fasciitis; A48.0 Gas gangrene; M86.171 Other acute osteomyelitis, right ankle and foot; L02.611 Cutaneous abscess of right foot; E11.52 Type 2 diabetes mellitus with diabetic peripheral angiopathy with gangrene; E87.6 Hypokalemia; D50.9 Iron deficiency anemia, unspecified; E11.42 Type 2 diabetes mellitus with diabetic polyneuropathy; I10 Essential (primary) hypertension; E78.5 Hyperlipidemia, unspecified; Z89.411 Acquired absence of right great toe; Z79.84 Long term (current) use of oral hypoglycemic drugs; E11.65 Type 2 diabetes mellitus with hyperglycemia; Z87.891 Personal history of nicotine dependence; B95.2 Enterococcus as the cause of diseases classified elsewhere; B95.7 Other staphylococcus as the cause of diseases classified elsewhere; B96.89 Other specified bacterial agents as the cause of diseases classified elsewhere
CPT/HCPCS: 36415; 73630; 80048; 80053; 80202; 82274; 82607; 82728; 82747; 82962; 83540; 83550; 83605; 85014; 85018; 85025; 85610; 85652; 86140; 86850; 86900; 86920; 86922; 87015; 87040; 87070; 87075; 87077; 87116; 87186; 87205; 87206; 88304; 88305; 88307; 88311; 93005; 97110; 97162; 97166; 97530; 97535; 97802; 97803; 99285; J1756; J7040; J7050; P9016; A4216

== ENCOUNTER → 2019-01-05 | Outpatient (CLI) | payer MEDICAID, SELFPAY ==
[2019-01-05 10:02] VITALS: BMI 27.1
[2019-01-05 12:21] LABS: Absolute Lymphocyte Count 1.09 X10^3/uL (0.83-4.51); Basophil# 0.04 X10^3/uL; Basophil% 0.6 % (0-1); Eosinophil# 0.28 X10^3/uL; Eosinophils% 4.1 % (0-5); Hematocrit 32.8 % (37-47); Hemoglobin 10.5 g/dL (12.0-15.0); Lymphocyte # 1.09 X10^3/ul (4.0); Mean Corpuscular Hgb 26.8 pg (27.0-32.0); Mean Corpuscular Volume 83.7 fL (81-99); Mean Platelet Vol. 9.2 fl (6.2-12.0); Monocyte# 0.41 X10^3/uL; NRBC Flagged by Analyzer 0 % (0-5); Neutrophil # 4.96 X10^3/uL (2.7-7.7); Neutrophil % 72.9 % (47-70); Platelet Count 239 K/mm3 (150-450); RBC Distribution Width CV 16.3 % (11.6-14.6); RBC Distribution Width SD 49.7 fl (35.1-43.9); Red Blood Count 3.92 M/mm3 (4.2-5.4); White Blood Count 6.8 K/mm3 (4.4-11.0)
[2019-01-05 12:35] LABS: ALB/GLOB Ratio 0.9 RATIO (0.9-2.4); AST(SGOT) 14 U/L (15-37); Alanine Aminotransfer ALT/SGPT 25 U/L (13-56); Albumin, Serum 3.6 g/dL (3.2-5.0); Alkaline Phosphatase 93 U/L (45-117); Anion Gap 7 (5-15); BUN 30 mg/dL (7-18); BUN/Creat Ratio 36.8 RATIO (10-20); Calcium,Total 9.4 mg/dL (8.5-10.1); Chloride 105 mmol/L (98-107); Creatinine, Serum 0.82 mg/dL (0.55-1.02); EST Glomerular Filtration Rate 76 mL/min (>60); Est Glom Filt Rate - Afr Amer 92 mL/min (>60); Globulin 3.9 g/dL (2.2-4.2); Glucose 206 mg/dL (74-106); Potassium 4.3 mmol/L (3.5-5.1); Protein, Total 7.5 g/dL (6.4-8.2); Sodium Level 138 mmol/L (136-145); Thyroid Stim Hormone (TSH) 1.07 uIU/mL (0.358-3.74); Uric Acid 4.1 mg/dL (2.6-6.0)
== END | disposition home or self-care (01) ==
LOC: POLAB3 10:02
PROVIDERS: Family Provider Family Medicine Geriatric Medicine; PCP Family Medicine Geriatric Medicine; Visit Provider Family Medicine Geriatric Medicine
DX: E11.9 Type 2 diabetes mellitus without complications (principal); E55.9 Vitamin D deficiency, unspecified; I10 Essential (primary) hypertension; M10.9 Gout, unspecified
CPT/HCPCS: 36415; 80053; 82306; 84443; 84550; 85025

== ENCOUNTER → 2020-12-15 09:47 | Outpatient (CLI) | payer MEDICAID, SELFPAY ==
--- NOTE | 2020-12-15 09:52 | ART_ITS ---
Reason For Study: Ulcer right foot Procedure A bilateral lower extremity continuous wave Doppler with analog waveform analysis,segmental pressures,and ankle brachial indexes without exercise. Left Segmental Pressures Left brachial= 121mmHg. Left thigh = 153mmHg. Left calf = 80mmHg. Left posterior tibial artery = 75mmHg. Left dorsalis pedis artery = 81mmHg. Left digit = 59 mmHg. The left dorsalis pedis waveforms are biphasic. The left posterior tibial artery waveforms are biphasic. Right Segmental Pressures Right brachial= 121mmHg. Right thigh = 170mmHg. Right calf = 115mmHg. Right posterior tibial artery = 108mmHg. Right dorsalis pedis artery = 117mmHg. The right dorsalis pedis waveforms are triphasic. The right posterior tibial artery waveforms are biphasic. Indices The right ankle brachial index by the dorsalis pedis is 0.97. The right ankle brachial index by the posterior tibial artery is 0.89. The left ankle brachial index by the dorsalis pedis is 0.67. The left ankle brachial index by the posterior tibial artery is 0.62. The left digital-brachial index is 0.49. VL/Lower Ext Art Exam w/o Exercis Interpretation Summary Essentially normal right dorsalis pedis ankle-brachial index of 0.97 with triph asic Doppler waveforms Moderately severe right posterior tibial ankle-brachial index of 0.89 with biph asic Doppler waveforms Moderately severe left posterior tibial and dorsalis pedis ankle-brachial indic es of 0.61 and 0.67 respectively with biphasic Doppler waveforms. Abnormal left digital brachial index of 0.49 Ordering Physician: Jerel Cardona Performed By: Maddie Jones RVT
== END ==
PROVIDERS: Visit Provider Podiatrist
DX: L97.519 Non-pressure chronic ulcer of other part of right foot with unspecified severity (principal); M79.672 Pain in left foot
CPT/HCPCS: 93923

== ENCOUNTER → 2021-03-05 | Outpatient (CLI) | payer MEDICARE, MEDICAID, SELFPAY | END | disposition home or self-care (01) | LOC: LABSPEC 03-16 13:17 | PROVIDERS: Visit Provider Family Medicine Geriatric Medicine | DX: L03.032 Cellulitis of left toe (principal) | CPT/HCPCS: 87070; 87077; 87186; 87205 ==

== ENCOUNTER 2021-09-07 15:09 | Emergency (ER) | payer MEDICARE, MEDICAID, SELFPAY ==
[2021-09-07 15:10] VITALS: BP 128/87; PULSE 102; RESP 18; TEMP 36.1; O2SAT 95; BMI 26.9
--- NOTE | 2021-09-07 15:24 | EDS_ITS ---
HPI HPI - GI History of Present Illness Chief Complaint: Abd Pain Informant: patient and family Abdominal Pain/Flank Pain Onset: Days (Onset 2 days ago) Context: Sudden Onset Timing: Intermittent Quality: Aching Location: RUQ (Right upper quadrant pain started last evening) and LLQ (Left lower quadrant pain which patient states is her kidney started 2 days ago) Current Severity: Mild Maximum Severity: Moderate Worsened by: Nothing; Not Worsened By Car ride, Food or Movement Relieved by: Not Relieved By Antacids, Food, Nothing or Remaining Still Nausea/Vomiting/Emesis GI Symptom: Positive for Nausea; Negative for Vomiting Diarrhea/Melena/Hematochezia GI Symptom: Negative for Diarrhea, Melena or Hematochezia Associated Symptoms Associated Symptoms: Positive for - (There is no history of renal or ureterolithiasis); Negative for Dysuria, Frequency, Hematuria or Urgency Narrative Narrative: Patient is a 61-year-old woman who presents with pain that she localizes to the left lower quadrant and right upper quadrant. Left lower quadrant pain started prior to the right upper quadrant pain. She states that lying flat resolves the pain left lower quadrant. She denies intolerance to greasy or fried foods. She denies family history cholelithiasis. There is a family history of renal/ureteral lithiasis. She denies fever but has had chills since last evening. Patient has not had anything to eat since last evening. Last evening her daug hter brought her macaroni and cheese hotdog from relatives house. Daughter states she ate very little. She also has a cough which is not abnormal for her. The cough is more productive than normal. There is no change in the color of the sputum. She denies history of VTE. She denies leg pain, swelling discoloration. She states the toes on her right foot have been amputated She has history of poorly controlled diabetes with neuropathy and PAD. She denies dysuria, frequency, urgency or hematuria. She denies vaginal bleeding or discharge. There is no history of trauma. Prior similar symptoms: No Recent Illness/Hospitalization: No [facility] Medical History (Updated 09/07/21 @ 16:[address] Dillon Mcnair MD) Amputation of one or more toes Cataract DM type 2 (diabetes mellitus, type 2) Gas gangrene HTN (hypertension) Hyperlipidemia Osteomyelitis Peripheral arterial disease Home Medications aspirin 81 mg chewable tablet 81 mg PO DAILY@0800 Blood thinner 12/27/15 [History Last Taken 09/26/18] metformin 500 mg tablet 1,000 mg PO BIDCM diabetes 09/18/18 [History Last Taken 09/26/18 08:00] acetaminophen 325 mg tablet 650 mg PO Q4H PRN PRN pain/fever 09/26/18 [History Last Taken Unknown] ferrous sulfate 325 mg (65 mg iron) tablet 325 mg PO 1200,1700 #90 tabs 10/02/18 [Rx Last Taken Unknown] Allergy/AdvReac Type Severity Reaction Status Date / Time orange juice AdvReac Diarrhea Verified 09/07/21 15:48 Social History (Updated 09/07/21 @ 15:[address] Dillon Mcnair MD) household members: none Smoking Status: Current every day smoker tobacco type: cigarettes substance use type: does not use ROS ROS ED Constitutional Constitutional ED: Reports chills; Denies fever(s), subjective, sweats or weight loss ENT ENT ED: Denies ear pain, rhinorrhea or sore throat Cardiovascular Cardiovascular: Denies chest pain, orthopnea, palpitations, paroxysmal nocturnal dyspnea or racing heartbeat Respiratory/Chest Respiratory/Chest: Reports cough and sputum; Denies dyspnea, dyspnea on exerti on, orthopnea or paroxysmal nocturnal dyspnea Gastrointestinal Gastrointestinal: Reports abdominal pain; Denies constipation, diarrhea, melena, nausea or vomiting Genitourinary Genitourinary ED: Reports LMP (females 10-50) Details: Comment: (Patient is postmenopausal); Denies dysuria, hematuria or urinary frequency Musculoskeletal Musculoskeletal: Denies arthralgias, back pain, myalgias or neck pain Integumentary Denies abscess or rash Neurologic Neurologic: Denies headache(s), paresthesias or weakness Endocrine Endocrinology: Denies polydipsia, polyphagia or polyuria Hematologic/Lymphatic Hematologic/Lymphatic: Denies easy bleeding, easy bruising or lymphadenopathy EXAM Physical Exam Narrative Exam Narrative: Patient appears pale. Patient has stigmata of peripheral arterial disease. Const Vital Signs: 09/07/21 15:10 09/07/21 15:10 Temperature 96.9 F L 96.9 F L Temperature Source Temporal Temporal Pulse Rate 102 H 102 H Respiratory Rate 18 18 Blood Pressure 128/87 H 128/87 H Blood Pressure Mean 100 100 Pulse Ox 95 95 Oxygen Delivery Method Room Air Room Air Positive well nourished, well developed and unkempt General Appearance ED: unkempt, well developed, NAD and pallor HEENT Reports TM's clear and moist mucous membranes HEENT Narrative: Nose patent. No drainage. Ears normal. Posterior pharynx out erythema or exudate. Uvula is midline. normocephalic and atraumatic Tympanic Membrane ED: Yes TM's clear Eyes PERRL and EOMs intact bilaterally General Eye ED: Negative for pale conjunctiva or scleral icterus Neck no lymphadenopathy, supple and no JVD Resp normal respiratory effort and clear to auscultation bilaterally Cardio regular rate, S1 normal heart sound, S2 normal heart sound and no murmurs GI non-distended and no masses; Negative for non-tender Auscultation: hypoactive bowel sounds Palpation: soft, tender RUQ, McBurney's point, periumbilical and Hahn's sign and guarding RUQ; Negative for rigid, hernia, mass, pulsatile mass or rebound tenderness present Back/Spine no CVA tenderness Cervical Spine: Negative for cervical spine tenderness Thoracic Spine / Upper Back: Negative for thoracic spinal tenderness Lumbar Spine / Lower Back: Negative for lumbar spinal tenderness Extremity full ROM Extremity Narrative: Amputation of toes on the right. Stigmata of peripheral arterial disease. There is no evidence of acute ischemia. General Extremety ED: Yes other findings General Extremity: other findings Neuro CN's II-XII intact bilaterally, moves all extremities and no sensory deficits noted Sensorium / Orientation: alert, oriented to person, oriented to place and oriented to time Psych mental status grossly normal and thought process normal Appearance: unkempt Skin No no wounds General Skin Exam: pallor; Negative for jaundice Lesions: no lesions Rashes: no rashes Trauma: abrasion MDM MDM MDM Narrative Medical decision making narrative: The left lower quadrant pain is not reproducible. There is no pain ovation over the left lower quadrant. There is significant tenderness in the right upper quadrant with a clinical Hahn sign. Suspect patient has biliary disease. Will obtain CBC, liver panel, lipase and electrolyte panel. Patient was medicated with IV morphine. Differential diagnosis is biliary disease, abdominal pain unknown etiology, right lower lobe pneumonia versus abdominal pain of unknown etiology Patient was informed that her white count is elevated. She received the morphine 1 minute prior to my reevaluation. Patient states she has had no improvement. Patient was reexamined at 1631. She has no pain. Her white count is elevated. With normal liver enzymes we will order outpatient ultrasound. She is to follow-up with Dr. Ramirez. Lab Data Attestation: I reviewed the patient's lab results. Lab results narrative: White count is slightly elevated. There is a shift with no bandemia. Basic metabolic panel is for glucose of 207 with a normal CO2 and anion gap. There is mild renal dysfunction with a GFR of 53. Liver enzymes and lipase are normal. Labs: Laboratory Results - last 24 hr 09/07/21 09/07/21 15:35 15:35 WBC 12.4 H RBC 4.39 Hgb 12.1 Hct 36.3 L MCV 82.7 MCH 27.6 MCHC 33.3 RDW Std Deviation 39.1 RDW Coeff of Nuno 12.9 Plt Count 213 MPV 9.0 Immature Gran % (Auto) 0.500 Neut % (Auto) 86.2 H Lymph % (Auto) 6.1 L [place] % (Auto) 6.8 Eos % (Auto) 0.2 Baso % (Auto) 0.2 Absolute Neuts (auto) 10.7 H Absolute Lymphs (auto) 0.76 L Nucleated RBC % 0 Sodium 134 L Potassium 4.1 Chloride 101 Carbon Dioxide 25.0 Anion Gap 8 BUN 18 Creatinine 1.10 H Estim Creat Clear Calc 43.30 Est GFR (MDRD) Af Amer 65 Est GFR (MDRD) Non-Af 53 L BUN/Creatinine Ratio 16.4 Glucose 207 H Calcium 9.3 Total Bilirubin 1.00 Direct Bilirubin 0.29 AST 11 L ALT 14 Alkaline Phosphatase 93 Total Protein 7.4 Albumin 3.4 Globulin 4.0 Lipase 87 Discharge Plan Triage Chief Complaint: Abd Pain ED Provider: Dillon Mcnair Dx/Rx/DC Orders Clinical Impression: Right upper quadrant abdominal pain, Type 2 diabetes mellitus with diabetic polyneuropathy, PAD (peripheral artery disease), Hypertension, Hyperlipidemia Instructions: ED Abdominal Pain Unkn Cause Fem Prescriptions: No Action aspirin 81 MG tablet,chewable 81 mg PO DAILY@0800 metformin 500 MG tablet 1,000 mg PO BIDCM acetaminophen 325 MG tablet 650 mg PO Q4H PRN PRN (Reason: pain/fever) ferrous sulfate 325 MG tablet 325 mg PO 1200,1700 Qty: 90 0RF Primary Care Provider: Christiano Ramirez Referrals: Christiano Ramirez MD [Primary Care Provider] - 5-7 Days Care Physician,No Primary [NON-STAFF] - Activity Restrictions/Additional Instructions: Recommend avoiding greasy, fried, rich foods. You will need to schedule an outpatient ultrasound of your gallbladder. Disposition Disposition: Home, Self Care
[2021-09-07 15:39] LABS: Absolute Lymphocyte Count 0.76 X10^3/uL (0.83-4.51); Absolute Neutrophil Count 10.7 X10^3/uL (2.0-7.7); Basophil# 0.02 X10^3/uL; Basophil% 0.2 % (0-1); Eosinophil# 0.02 X10^3/uL; Eosinophils% 0.2 % (0-5); Hematocrit 36.3 % (37-47); Hemoglobin 12.1 g/dL (12.0-15.0); Lymphocyte # 0.76 X10^3/ul (0.83-4.51); Lymphocyte % 6.1 % (19-41); Mean Corp Hgb Conc 33.3 g/dL (32-36); Mean Corpuscular Hgb 27.6 pg (27.0-32.0); Mean Corpuscular Volume 82.7 fL (81-99); Monocyte# 0.85 X10^3/uL; Monocyte% 6.8 % (0-10); NRBC Flagged by Analyzer 0 % (0-5); Neutrophil % 86.2 % (47-70); Platelet Count 213 K/mm3 (150-450); RBC Distribution Width CV 12.9 % (11.6-14.6); RBC Distribution Width SD 39.1 fl (35.1-43.9); Red Blood Count 4.39 M/mm3 (4.2-5.4); White Blood Count 12.4 K/mm3 (4.4-11.0)
[2021-09-07] MEDS: Morphine 4 MG/ML Syringe IV (15:41)
[2021-09-07] MEDS: Ondansetron 4 MG/2 ML Vial IV (15:41)
[2021-09-07 16:14] LABS: AST(SGOT) 11 U/L (15-37); Alanine Aminotransfer ALT/SGPT 14 U/L (13-56); Albumin, Serum 3.4 g/dL (3.2-5.0); Alkaline Phosphatase 93 U/L (45-117); Anion Gap 8 (5-15); BUN 18 mg/dL (7-18); BUN/Creat Ratio 16.4 RATIO (10-20); Bilirubin, Direct 0.29 mg/dL (0.00-0.30); Calcium,Total 9.3 mg/dL (8.5-10.1); Chloride 101 mmol/L (98-107); EST Glomerular Filtration Rate 53 mL/min (>60); Est Glom Filt Rate - Afr Amer 65 mL/min (>60); Glucose 207 mg/dL (74-106); Lipase 87 U/L (73-393); Potassium 4.1 mmol/L (3.5-5.1); Protein, Total 7.4 g/dL (6.4-8.2); Sodium Level 134 mmol/L (136-145)
[2021-09-07 16:57] VITALS: BP 124/60; PULSE 81; RESP 18; O2SAT 97
== END 2021-09-07 17:05 | disposition home or self-care (01) ==
PROVIDERS: Emergency Provider Emergency Medicine; PCP Internal Medicine; Visit Provider Emergency Medicine
DX: R10.11 Right upper quadrant pain (principal); E11.51 Type 2 diabetes mellitus with diabetic peripheral angiopathy without gangrene; E11.42 Type 2 diabetes mellitus with diabetic polyneuropathy; I10 Essential (primary) hypertension; E78.5 Hyperlipidemia, unspecified; F17.210 Nicotine dependence, cigarettes, uncomplicated; Z79.82 Long term (current) use of aspirin; Z79.84 Long term (current) use of oral hypoglycemic drugs
CPT/HCPCS: 80048; 80076; 83690; 85025; 96374; 96375; 99283; J7030; A4216; J2405

== ENCOUNTER 2021-09-10 16:55 | Emergency (ER) | payer MEDICARE, MEDICAID, SELFPAY ==
[2021-09-10 16:56] VITALS: BP 116/73; PULSE 111; RESP 17; TEMP 36.8; O2SAT 98; BMI 28.0
--- NOTE | 2021-09-10 17:18 | CT_ITS ---
STUDY: CT Abdomen And Pelvis W/ Contrast Injection 09/10/2021 6:42 PM REASON FOR EXAM: Female, 61 years old. ABDOMINAL PAIN abdominal pain TECHNIQUE: Transaxial images were obtained without oral contrast, and with IV 100mL Isovue-300 intravenous contrast. Individualized dose optimization techniques were used for this CT. COMPARISON: 09/18/2018 FINDINGS: The visualized lung bases are unremarkable. The visualized portions of the heart are within normal limits. Unremarkable liver. Unremarkable gallbladder and extrahepatic biliary system. Unremarkable spleen. Unremarkable pancreas. Unremarkable bilateral adrenal glands. Bilateral mild hydronephroureter. Inflammation is seen around the kidney and ureter. An obstructing calcified stone is not identified. This would suggest passage of a stone or infectious process of the kidney. The latter is favored. Retroaortic left renal vein. Focal wall thickening of the antrum of stomach. This can suggest a gastritis. Unremarkable small intestine. Unremarkable colon. There is non-visualization of the appendix. There are calcifications of the abdominal aorta. This is consistent for atherosclerotic disease. There is no abdominal aortic aneurysm. Unremarkable inferior vena cava. Subcentimeter mesenteric lymph nodes. Urinary bladder wall has wall thickening. This can be related to a partially contractile state. However, a cystitis is not excluded. Urinalysis should be performed in an effort to exclude cystitis. The uterus is lobulated in contour. There are multiple partially calcified masses in the uterus. This is consistent for a fibroid/ myomatous uterus. There is an umbilical hernia containing fat. There are diffuse degenerative changes of the visualized lumbar spine. CT/Abdomen/Pelvis W IV Cont ONLY IMPRESSION: (NOT LISTED IN ORDER OF SIGNIFICANCE) Gastritis. Bilateral mild hydronephroureter. Inflammation is seen around the kidney and ureter. An obstructing calcified stone is not identified. This would suggest passage of a stone or infectious process of the kidney. The latter is favored. Urinary bladder wall has wall thickening. This can be related to a partially contractile state. However, a cystitis is not excluded. Urinalysis should be performed in an effort to exclude cystitis. Other findings as above. Electronically Signed: Rafael Plaza MD at 18:45 EDT ,
--- NOTE | 2021-09-10 17:22 | EDS_ITS ---
HPI History of Present Illness Chief Complaint: Flank Pain Informant: patient and family Narrative Narrative: 61-year-old female presents to the emergency room with right upper quadrant and left flank pain. Patient was seen in the emergency room on Tuesday and was discharged home. She was post to get an outpatient ultrasound but family states they have been called. Patient notes continued nausea and today experienced vomiting. Her diarrhea that she developed on Tuesday is still present. Early this morning she had a sharp shooting pain across to her low back from the left flank to the right she believes this is her gallbladder. She denies any fevers. She does note a cough. [facility] Medical History Amputation of one or more toes Cataract DM type 2 (diabetes mellitus, type 2) Gas gangrene HTN (hypertension) Hyperlipidemia Osteomyelitis Peripheral arterial disease Home Medications aspirin 81 mg chewable tablet 81 mg PO DAILY@0800 Blood thinner 12/27/15 [History Last Taken 09/26/18] metformin 500 mg tablet 1,000 mg PO BIDCM diabetes 09/18/18 [History Last Taken 09/26/18 08:00] ferrous sulfate 325 mg (65 mg iron) tablet 325 mg PO 1200,1700 #90 tabs 10/02/18 [Rx Last Taken Unknown] semaglutide (Ozempic) 1 ea subcut QWEEK 09/10/21 [History Last Taken Unknown] Allergy/AdvReac Type Severity Reaction Status Date / Time orange juice AdvReac Diarrhea Verified 09/10/21 16:58 Social History household members: none Smoking Status: Light Smoker (<10/day) substance use type: does not use ROS ROS ED Constitutional Constitutional ED: Denies chills or weight loss Eyes Eyes: Denies change in vision or diplopia ENT ENT ED: Denies ear pain, rhinorrhea or sore throat Cardiovascular Cardiovascular: Denies chest pain, orthopnea, palpitations or racing heartbeat Respiratory/Chest Respiratory/Chest: Denies cough, dyspnea or orthopnea Gastrointestinal Gastrointestinal: Reports abdominal pain, diarrhea, nausea and vomiting Genitourinary Genitourinary ED: Denies dysuria, hematuria or urinary frequency Musculoskeletal Musculoskeletal: Denies arthralgias or myalgias Integumentary Denies abscess or rash Neurologic Neurologic: Denies headache(s) or weakness Psychiatric Psychiatric: Denies anxiety, depression, suicidal ideation or suicidal thoughts Endocrine Endocrinology: Denies polydipsia, polyphagia or polyuria Allergic/Immunologic Allergic/Immunologic ED: Denies mouth swelling, tongue swelling or urticaria EXAM Physical Exam Const Vital Signs: 09/10/21 16:56 09/10/21 17:18 Temperature 98.2 F Temperature Source Temporal Pulse Rate 111 H Respiratory Rate 17 Respiratory Effort Normal Respiratory Pattern Normal Blood Pressure 116/73 Blood Pressure Mean 87 Pulse Ox 98 Oxygen Delivery Method Room Air Positive well nourished and well developed General Appearance ED: well developed HEENT Reports normocephalic, head/scalp atraumatic and moist mucous membranes Eyes PERRL and EOMs intact bilaterally Neck no lymphadenopathy, supple and no JVD Resp normal respiratory effort and clear to auscultation bilaterally Cardio regular rate, regular rhythm and no murmurs GI Palpation: soft and tender epigastric and RUQ; Negative for guarding or rebound tenderness present Back/Spine no CVA tenderness and normal ROM Extremity normal to inspection General Extremety ED: Negative for edema General Extremity: Negative for edema Neuro oriented x3 and CN's II-XII intact bilaterally Sensorium / Orientation: alert Motor Exam: strength 5/5 throughout Psych mental status grossly normal Mood & Affect: Negative for depressed or tearful Skin no rashes or lesions noted and no wounds MDM MDM MDM Narrative Medical decision making narrative: White count nonspecifically elevated 11.7. Creatinine 1.52 with a BUN of 26. Liver enzymes normal lipase normal urinalysis is nitrate positive leukocyte Estrace positive. This will be sent for culture. Patient will be started on Bactrim. Follow-up with primary care. Lab Data Attestation: I reviewed the patient's lab results. Labs: Laboratory Results - last 24 hr 09/10/21 09/10/21 09/10/21 17:31 17:31 19:59 WBC 11.7 H RBC 4.02 L Hgb 11.3 L Hct 32.0 L MCV 79.6 L MCH 28.1 MCHC 35.3 D RDW Std Deviation 36.4 RDW Coeff of Nuno 12.6 Plt Count 191 MPV 9.8 Immature Gran % (Auto) 0.800 Neut % (Auto) 85.5 H Lymph % (Auto) 4.1 L [place] % (Auto) 9.2 Eos % (Auto) 0.1 Baso % (Auto) 0.3 Absolute Neuts (auto) 10.0 H Absolute Lymphs (auto) 0.48 L Nucleated RBC % 0 Sodium 127 L Potassium 3.4 L Chloride 93 L Carbon Dioxide 23.0 Anion Gap 11 BUN 26 H Creatinine 1.52 H Estim Creat Clear Calc 31.34 Est GFR (MDRD) Af Amer 44 L Est GFR (MDRD) Non-Af 37 L BUN/Creatinine Ratio 17.1 Glucose 268 H Calcium 8.7 Total Bilirubin 0.70 Direct Bilirubin 0.33 H AST 16 ALT 14 Alkaline Phosphatase 96 Total Protein 7.2 Albumin 2.9 L Globulin 4.3 H Lipase 101 Urine Color Yellow Urine Clarity Cloudy Urine pH 5.0 Ur Specific [place] 1.005 Urine Protein 100 H Urine Glucose (UA) 100 H Urine Ketones 5 H Urine Occult Blood 250 H Urine Nitrite Positive H Urine Bilirubin Negative Urine Urobilinogen Normal Ur Leukocyte Esterase 500 H Radiography Diagnostic Testing: Clinical Impression(s) from Imaging Studies Abdomen/Pelvis CT 09/10/21 17:18 IMPRESSION: (NOT LISTED IN ORDER OF SIGNIFICANCE) Gastritis. Bilateral mild hydronephroureter. Inflammation is seen around the kidney and ureter. An obstructing calcified stone is not identified. This would suggest passage of a stone or infectious process of the kidney. The latter is favored. Urinary bladder wall has wall thickening. This can be related to a partially contractile state. However, a cystitis is not excluded. Urinalysis should be performed in an effort to exclude cystitis. Other findings as above. Electronically Signed: Rafael Plaza MD at 18:45 EDT Reading Location ID and State: [facility] / [place] , Service support , Discharge Plan Triage Chief Complaint: Flank Pain ED Provider: Hernando Barragan Dx/Rx/DC Orders Clinical Impression: Abdominal pain, UTI (urinary tract infection) Prescriptions: No Action aspirin 81 MG tablet,chewable 81 mg PO DAILY@0800 metformin 500 MG tablet 1,000 mg PO BIDCM ferrous sulfate 325 MG tablet 325 mg PO 1200,1700 Qty: 90 0RF Ozempic 0.25 mg or 0.5 mg(2 mg/1.5 mL) pen injector 1 ea SUBCUT QWEEK Primary Care Provider: Christiano Ramirez Referrals: Christiano Ramirez MD [Primary Care Provider] -
[2021-09-10] MEDS: Ondansetron 4 MG/2 ML Vial IV (17:40)
[2021-09-10] MEDS: 0.9% Normal Saline 1,000 ML 1000 ML IV (17:40)
[2021-09-10] MEDS: Dicyclomine 10 MG Capsule 20 MG PO (17:40)
[2021-09-10 17:49] LABS: Absolute Lymphocyte Count 0.48 X10^3/uL (0.83-4.51); Basophil# 0.03 X10^3/uL; Basophil% 0.3 % (0-1); Eosinophil# 0.01 X10^3/uL; Eosinophils% 0.1 % (0-5); Hemoglobin 11.3 g/dL (12.0-15.0); Lymphocyte # 0.48 X10^3/ul (0.83-4.51); Lymphocyte % 4.1 % (19-41); Mean Corp Hgb Conc 35.3 g/dL (32-36); Mean Corpuscular Hgb 28.1 pg (27.0-32.0); Mean Corpuscular Volume 79.6 fL (81-99); Mean Platelet Vol. 9.8 fl (6.2-12.0); Monocyte# 1.07 X10^3/uL; Monocyte% 9.2 % (0-10); NRBC Flagged by Analyzer 0 % (0-5); Neutrophil # 9.97 X10^3/uL (2.7-7.7); Neutrophil % 85.5 % (47-70); POSITIVE DIFFERENTIAL YES; Platelet Count 191 K/mm3 (150-450); RBC Distribution Width CV 12.6 % (11.6-14.6); RBC Distribution Width SD 36.4 fl (35.1-43.9); Red Blood Count 4.02 M/mm3 (4.2-5.4); White Blood Count 11.7 K/mm3 (4.4-11.0)
[2021-09-10 18:05] LABS: Differential Indicated SCAN CRITERIA MET
[2021-09-10 18:08] LABS: AST(SGOT) 16 U/L (15-37); Alanine Aminotransfer ALT/SGPT 14 U/L (13-56); Albumin, Serum 2.9 g/dL (3.2-5.0); Alkaline Phosphatase 96 U/L (45-117); Anion Gap 11 (5-15); BUN 26 mg/dL (7-18); BUN/Creat Ratio 17.1 RATIO (10-20); Bilirubin, Direct 0.33 mg/dL (0.00-0.30); Calcium,Total 8.7 mg/dL (8.5-10.1); Chloride 93 mmol/L (98-107); Creatinine, Serum 1.52 mg/dL (0.55-1.02); EST Glomerular Filtration Rate 37 mL/min (>60); Est Glom Filt Rate - Afr Amer 44 mL/min (>60); Estimated Creatinine Clearance 31.34 ml/min; Globulin 4.3 g/dL (2.2-4.2); Glucose 268 mg/dL (74-106); Lipase 101 U/L (73-393); Potassium 3.4 mmol/L (3.5-5.1); Protein, Total 7.2 g/dL (6.4-8.2); Sodium Level 127 mmol/L (136-145)
[2021-09-10 20:05] LABS: Mucous, Urine 0 SEEN /hpf (<or=2+)
[2021-09-10 20:07] LABS: Color, Urine Yellow (Yellow); Glucose, Dipstick 100 mg/dl (Normal); Ketone-Dipstick 5 mg/dl (Negative); Leukocyte Esterase-Dipstick 500 /ul (Negative); Nitrite-Dipstick Positive (Negative); Occult Blood-Urine 250 /ul (Negative); Protein-Dipstick 100 mg/dl (Negative); Specific Gravity, Urine 1.005 (1.002-1.030); Urine Bilirubin Dipstick Negative (Negative); Urine Clarity Cloudy (Clear); Urine Urobilinogen Normal (Normal)
[2021-09-10 21:02] LABS: Amorphous Sediment 1+ URATE; Bacteria 2+ /hpf (None Seen); Red Blood Cells-Urine 50-100 SEEN /hpf (0-5); Squamous Epithelial Cells - UA 5-10 SEEN /hpf (5-10); White Blood Cells >100 SEEN /hpf (0-5)
[2021-09-10] MEDS: Smz/Tmp Ds Tablet 1 TABLET PO (21:12)
== END 2021-09-10 21:22 | disposition home or self-care (01) ==
PROVIDERS: Emergency Provider Emergency Medicine; PCP Internal Medicine; Visit Provider Emergency Medicine
DX: R10.11 Right upper quadrant pain (principal); E11.9 Type 2 diabetes mellitus without complications; N39.0 Urinary tract infection, site not specified; F17.200 Nicotine dependence, unspecified, uncomplicated; Z79.82 Long term (current) use of aspirin; Z79.84 Long term (current) use of oral hypoglycemic drugs
CPT/HCPCS: 74177; 80048; 80076; 81001; 83690; 85025; 96361; 96374; 99284; J7030; Q9967; A4216; J2405

== ENCOUNTER → 2021-12-23 | Outpatient (CLI) | payer MEDICARE, MEDICAID, SELFPAY ==
[2021-12-23 12:04] LABS: Absolute Lymphocyte Count 1.79 X10^3/uL (0.83-4.51); Basophil# 0.04 X10^3/uL; Basophil% 0.4 % (0-1); Eosinophils% 2.8 % (0-5); Hematocrit 36.6 % (37-47); Hemoglobin 12.1 g/dL (12.0-15.0); Lymphocyte # 1.79 X10^3/ul (0.83-4.51); Lymphocyte % 16.6 % (19-41); Mean Corp Hgb Conc 33.1 g/dL (32-36); Mean Corpuscular Hgb 28.3 pg (27.0-32.0); Mean Corpuscular Volume 85.7 fL (81-99); Mean Platelet Vol. 9.7 fl (6.2-12.0); Monocyte# 0.58 X10^3/uL; Monocyte% 5.4 % (0-10); NRBC Flagged by Analyzer 0 % (0-5); Neutrophil # 8.04 X10^3/uL (2.7-7.7); Neutrophil % 74.4 % (47-70); Platelet Count 276 K/mm3 (150-450); RBC Distribution Width CV 12.7 % (11.6-14.6); RBC Distribution Width SD 39.6 fl (35.1-43.9); Red Blood Count 4.27 M/mm3 (4.2-5.4); White Blood Count 10.8 K/mm3 (4.4-11.0)
[2021-12-23 13:01] LABS: AST(SGOT) 22 U/L (15-37); Alanine Aminotransfer ALT/SGPT 39 U/L (13-56); Albumin, Serum 3.8 g/dL (3.2-5.0); Alkaline Phosphatase 155 U/L (45-117); Anion Gap 7 (5-15); BUN 13 mg/dL (7-18); BUN/Creat Ratio 12.7 RATIO (10-20); Calcium,Total 9.4 mg/dL (8.5-10.1); Chloride 103 mmol/L (98-107); Creatinine, Serum 1.02 mg/dL (0.55-1.02); EST Glomerular Filtration Rate 58 mL/min (>60); Est Glom Filt Rate - Afr Amer 70 mL/min (>60); Globulin 3.7 g/dL (2.2-4.2); Glucose 206 mg/dL (74-106); Protein, Total 7.5 g/dL (6.4-8.2); Sodium Level 137 mmol/L (136-145)
== END | disposition home or self-care (01) ==
LOC: MFPLAB 10:07
PROVIDERS: PCP Internal Medicine; Visit Provider Family Medicine
DX: Z01.818 Encounter for other preprocedural examination (principal)
CPT/HCPCS: 36415; 80053; 85025

== ENCOUNTER 2022-01-08 05:48 | Day surgery (SDC) | payer MEDICARE, MEDICAID, SELFPAY ==
[2022-01-08] VITALS (7 sets, daily range): BP systolic 114–170; BP diastolic 61–83; PULSE 73–83; RESP 16; TEMP 36.2–37.1; O2SAT 94–100; BMI 25.4
[2022-01-08] MEDS: Lactated Ringers 1,000 ML 15 ML IV (06:31)
[2022-01-08 07:00] LABS: Bedside Glucose 229 mg/dL (74-106)
--- NOTE | 2022-01-08 07:15 | RAD_ITS ---
STUDY: X-RAY - RIGHT FOOT CLINICAL: Female, 61 years old. Intraoperative digital documentation views. TECHNIQUE: 4 intraoperative digital documentation view(s) of the foot. COMPARISON: September 26, 2014 FINDINGS: 4 intraoperative digital documentation views show resection of the distal aspects of the first through fifth toes. Technical exposure time 6 seconds. Longest single exposure 2 seconds. Total DAP 0.5303 cGy*cm2. Total Air Kerma 0.0316 mGy. RAD/Foot 2 Views IMPRESSION: Intraoperative digital documentation views as described Electronically Signed: Roberto Carlos Ambrocio, at 9:55 EDT ,
--- NOTE | 2022-01-08 07:26 | DCINST_ITS ---
Discharge Instructions Diet Discharge Diet: Light diet - advance as tolerated Activity Discharge Activity: May Not Drive Weight Bearing Status: No weight bearing Keep extremity elevated above heart level: Right Leg (Elevate right foot) Dressing / Incision Call your doctor if your incision/area has: Continuous Slow Oozing, Sudden Increased Bleeding and Foul Smelling Discharge Call your doctor if you observe: Fever of 101 or Higher, Shortness of breath, Chest pain, Increased palpitations (irregular heartbeat), Calf discomfort and Uncontrolled pain Change Dressing in: do not change dressing Remove Dressing in: do not remove dressing Cleanse incision/area with: Keep Dressing Clean & Dry Follow Up Care Please Follow Up With: Jerel Cardona DPM When: 1 week, sooner if needed. Test Results: Test results from this visit will be discussed in further detail at your follow- up appointment, if applicable. Discharge Plan Admission Attending Provider: Jerel Cardona Primary Care Provider: Christiano Ramirez Discharge Orders/Prescriptions Prescriptions: New hydrocodone-acetaminophen 5-300 mg tablet 1 tab PO Q6H 3 Days Qty: 12 0RF No Action aspirin 81 MG tablet,chewable 81 mg PO DAILY@0800 metformin 500 MG tablet 500 mg PO BIDCM Ozempic 0.25 mg or 0.5 mg(2 mg/1.5 mL) pen injector 1 ea SUBCUT DOW ketorolac 0.5 % Drops 1 drp LEFT EYE Q8H Rx Instructions: begin 24 hours prior to surgery ferrous sulfate 325 MG tablet 325 mg PO DAILY Referrals / Follow Up: Christiano Ramirez MD [Primary Care Provider] - Disposition Disposition (needs filled in before D/C Order can be placed): Home, Self Care
[2022-01-08] MEDS: Cefazolin 2 GM in 0.9% Normal Saline 100 ML IV (07:30)
--- NOTE | 2022-01-08 07:30 | BON_PTH ---
PATIENT: ROSALINO LEVY [place] [facility] [place][id number] AGE/SX: 61/F ROOM: RE01/08/[address]: Dr. Jerel Cardona DPM : 1960 BED: DIS: 01/08/2022 SPEC #: [id number] RECD: 01/08/22 11:37 STATUS: TIM REQ #: [id number] ALLEN: 01/08/22 07:[address]: Jerel Cardona DEPT: SURGICAL PATHOLOGY RECD BY: Christina Tirado ENTERED: 01/08/22 12:45 SP TYPE: Bone OTHR DR: Dr. Christiano Ramirez MD Tissues: A - Bone of foot, NOS B - Skin of foot, NOS Procedures: Decalcification bone/plaque Surgery Specimen Level III Surgery Specimen Level IV HEADER OPERATION: Resection of osteophyte, right foot PRE-OP DIAGNOSIS: Osteophyte right foot TISSUE SUBMITTED: A - Osteophyte right foot, B ? Skin right foot MICROSCOPIC DIAGNOSIS A. Osteophyte of right foot, excision: Fragments of bony tissue consistent with osteophyte. B. Skin lesion of right foot, excision: Fragments of hyperkeratotic skin. AM:xiomara 01/13/2022 MICROSCOPIC DESCRIPTION Slides are reviewed. GROSS DESCRIPTION A - Received in fixative is one container labeled with the patient's name and designated osteophyte right foot. The specimen consists of multiple irregular fragments of white-pink bone that in aggregate measure 2.2 x 1.5 x 0.3 cm. The specimen is totally submitted in one cassette after decalcification. B - Received in fixative is one container labeled with the patient's name and designated skin right foot. The specimen consists of an irregular fragment of light fernández skin measuring 0.7 x 0.2 x 0.2 cm. The specimen is totally submitted in one cassette. / AM:xiomara 01/08/2022 TC:5 CPT: 69406, 53671, 38517
[2022-01-08] MEDS: Bupivacaine 0.25% 30 ML Vial (08:20)
--- NOTE | 2022-01-08 08:37 | OP.PCM_ITS ---
Problems Associated Problem List Diagnoses (1) Osteophyte, right foot: Report of Operation Date of Procedure: 01/08/22 Pre-Operative Diagnosis: Osteophyte right foot, callus right foot Post-Operative Diagnosis: Same Surgery/Procedure Performed:: Resection of osteophyte right foot, resection of callus with biopsy right foot Surgeon: Jerel Cardona it support specialist: Ernie Type of Anesthesia: Local and MAC Specimen's removed: 1. Right foot osteophyte sent to pathology 2. 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 She has developed osteophyte formation to the plantar residual 1st metatarsal, this is causing a recurrent callus and wound. The wound is currently closed. We have tried nonsurgical care at great length but the callus and ulcer is recurrent despite this. We discussed surgical options of osteophyte resection. The consent forms were reviewed with her and she freely signed them. She was cleared medically and by vascular specialist. No guarantees were given nor implied. Operative procedure: The patient was brought back to the operating room and was placed on the operating room table in the supine position, carefully secured to the operating room table with a safety belt around her waist. The patient reviewed 2g of IV Ancef. A timeout was performed and she was properly identified and surgical plan confirmed. A well padded pneumatic tourniquet was applied arou nd the right ankle. The patient received MAC anesthesia per the anesthesia team. The skin was cleansed with 70% Isopropyl alcohol and a total of 10mL of 0.25% Bupivacaine was given as a local block around the foot. The right foot was scrubbed, prepped and draped in the usual aspectic fashion. The right foot was exsanguinated using an Esmarch bandage. The right ankle pneumatic tourniquet was inflated to 250mmHg. A skin incision was made to the distal foot at level of the residual 1st metatarsal. Careful dissection was completed down to the osteophyte. The osteophyte was very prominent, it was resected using a powered sagittal saw and sent to pathology as a specimen. Proper resection was confirmed visually and also with intraoperative fluoroscopy. The site looked good. There was also some chronic callus to the plantar foot which was biopsied in punch fashion using a 3mm punch - this was sent separately to pathology as a specimen. The tissues were healthy and viable. The sites were flushed out with copious amounts of normal saline solution. The skin was reapproximated using 3-0 Nylon. A dressing was applied and consisted of Betadine soaked adaptic, 4x4 gauze, kerlix and kieran dressing in noncompressive fashion. The tourniquet was deflated and there was immediate return of warmth and perfusion to the foot. Total tourniquet time was 36 minutes. She tolerated the above procedure well and anesthesia well with no complication. Post operative orders placed. Right foot xrays were obtained and reviewed. No weightbearing right foot, keep foot elevated. Keep dressing clean, dry and inta ct. Pain medication was prescribed Medina 5.325mg PO once every 6 hours prn pain. Follow up in 1 week, sooner if needed. Grafts/Implants Used: None Complications None
--- NOTE | 2022-01-08 09:03 | RAD_ITS ---
STUDY: X-RAY - RIGHT FOOT CLINICAL: Female, 61 years old. Postoperative evaluation after resection of first through fifth toes. TECHNIQUE: 3 view(s) of the foot. COMPARISON: September 26, 2018. FINDINGS: Osteopenia. Relatively stable arthrosis of the tibiotalar joint, subtalar joint, midfoot and tarsometatarsal joints. Superior and inferior calcaneal spurs unchanged. Distal resection of the first through fifth toes without complications . Diffuse soft tissue swelling. RAD/Foot min 3 Views IMPRESSION: Osteopenia with stable osteoarthritic changes. Post-surgical changes of resection of the distal first through fifth toes. No complicating features. Electronically Signed: Roberto Carlos Ambrocio, at 9:58 EDT ,
== END 2022-01-08 09:57 | disposition home or self-care (01) ==
LOC: SDC 05:49 → AC 05:50
PROVIDERS: PCP Internal Medicine; Referring Provider Podiatrist; Visit Provider Podiatrist
PROC: (CPT 28288; principal; 2022-01-08 07:15)
DX: M25.774 Osteophyte, right foot (principal); E11.9 Type 2 diabetes mellitus without complications; L84 Corns and callosities; G47.30 Sleep apnea, unspecified; F17.210 Nicotine dependence, cigarettes, uncomplicated; Z79.82 Long term (current) use of aspirin; Z79.84 Long term (current) use of oral hypoglycemic drugs; Z79.899 Other long term (current) drug therapy
CPT/HCPCS: 28288; 11104; 01480; 73620; 73630; 76000; 82962; 88304; 88305; 88311; J7120; J2405

== ENCOUNTER → 2023-02-26 | Outpatient (CLI) | payer MEDICARE, MEDICAID, SELFPAY ==
--- NOTE | 2023-02-26 08:32 | MRI_ITS ---
STUDY: MRI RIGHT ANKLE AND FOOT WITHOUT CONTRAST REASON FOR EXAM: Female, 62 years old. Right foot ulceration. TECHNIQUE: Standardized fat and water weighted pulse sequences were obtained in all 3 orthogonal planes. COMPARISON: Right foot x-rays dated January 08, 2022. FINDINGS: Amputation of the distal aspects of the first through fifth metatarsals with no abnormality identified in the remaining proximal portions of the metatarsals. Mild arthrosis of the tibiotalar and subtalar joints. Mild arthrosis of the talonavicular joint and midfoot. Mild arthrosis of the TMT joints. Normal soft tissues with no evidence of abscess formation. No other abnormality. MRI/Lower Ext/No Jt/w/o IMPRESSION: Amputation of all of the metatarsals at the shafts with mild osteoarthritic changes. No other abnormality. Electronically Signed: Roberto Carlos Ambrocio MD at 12:57 EST ,
== END | disposition home or self-care (01) ==
LOC: MRI 08:29
PROVIDERS: PCP Internal Medicine; Referring Provider Podiatrist; Visit Provider Podiatrist
DX: L97.512 Non-pressure chronic ulcer of other part of right foot with fat layer exposed (principal); M21.6X1 Other acquired deformities of right foot
CPT/HCPCS: 73718

== ENCOUNTER 2024-12-03 19:25 | Inpatient (IN) | payer MEDICARE, SELFPAY ==
[2024-12-03] VITALS (7 sets, daily range): BP systolic 134–161; BP diastolic 61–81; PULSE 82–111; RESP 16–18; TEMP 36.1; O2SAT 95–100; BMI 27.8
--- NOTE | 2024-12-03 19:27 | ED.RN ---
Daughter Rosetta requests frequent updates, .
[2024-12-03 21:04] LABS: Mucous, Urine 0 SEEN /hpf (<or=2+)
[2024-12-03 21:10] LABS: Hematocrit 30.6 % (37-47); Hemoglobin 9.6 g/dL (12.0-15.0); Immature Granulocytes Count 0.040 X10^3/uL (0.0-0.0); Mean Corp Hgb Conc 31.4 g/dL (32-36); Mean Corpuscular Volume 88.2 fL (81-99); Mean Platelet Vol. 9.4 fl (6.2-12.0); NRBC Flagged by Analyzer 0 % (0-5); Platelet Count 253 K/mm3 (150-450); RBC Distribution Width CV 14.1 % (11.6-14.6); RBC Distribution Width SD 45.1 fl (35.1-43.9); Red Blood Count 3.47 M/mm3 (4.2-5.4); White Blood Count 5.9 K/mm3 (4.4-11.0)
[2024-12-03 21:14] LABS: Color, Urine Straw (Yellow); Glucose, Dipstick 100 mg/dl (Normal); Ketone-Dipstick Negative (Negative); Leukocyte Esterase-Dipstick 500 /ul (Negative); Nitrite-Dipstick Positive (Negative); Occult Blood-Urine 150 /ul (Negative); Protein-Dipstick 100 mg/dl (Negative); Specific Gravity, Urine 1.010 (1.002-1.030); Urine Bilirubin Dipstick Negative (Negative)
[2024-12-03] MEDS: 0.9% Normal Saline (1000mL) 1,000 ML 1000 ML IV (21:19)
[2024-12-03 21:28] LABS: AST(SGOT) 17 U/L (<=31); Alanine Aminotransfer ALT/SGPT 11 U/L (<=34); Albumin, Serum 3.9 g/dL (3.4-4.8); Alkaline Phosphatase 120 U/L (35-104); Anion Gap 11 (5-15); BUN 25 mg/dL (4-19); BUN/Creat Ratio 16.6 RATIO (10-20); Calcium,Total 9.0 mg/dL (7.6-11.0); Carbon Dioxide 23.1 mmol/L (21.0-32.0); Chloride 104 mmol/L (98-108); Estimated Creatinine Clearance 34.26 ml/min (50-250); Globulin 3.3 g/dL (2.2-4.2); Glucose 211 mg/dL (70-99); Lipase 41 U/L (13-75); Potassium 3.9 mmol/L (3.3-5.1)
[2024-12-03 21:32] LABS: Red Blood Cells-Urine 5-10 SEEN /hpf (0-5)
[2024-12-03 21:33] LABS: Squamous Epithelial Cells - UA 0-5 SEEN /hpf (5-10)
--- NOTE | 2024-12-03 21:46 | EX.ED.DYSGE1 ---
HPI History of Present Illness Chief Complaint: General Illness Narrative Narrative: Patient is a 64-year-old female presenting to the emergency department for lower abdominal pain. Patient is an extremely poor historian. States that this morning she woke up and her head felt funny. She states that it resolved after a few minutes. She is unable to tell me if it was a headache, dizziness or lightheadedness. States that she did not have any recurrence of this symptom throughout the day. States that she started to have some lower abdominal discomfort and dysuria today. She denies any fever, chills, chest pain, shortness of breath, diarrhea, constipation, hematuria. Denies visual changes, speech difficulty, numbness or weakness in her extremities. Denies any recent falls, neck pain or back pain. [facility] Medical History Wears glasses Post-menopausal Alcohol use Depression History of steroid therapy Arthritis Uses wheelchair Bladder disease Low iron Stroke/cerebrovascular accident Dietary restriction History of renal disease Chronic cough Smoker Shortness of breath on exertion History of pain when walking DM type 2 (diabetes mellitus, type 2) Amputation of one or more toes Peripheral arterial disease Gas gangrene Osteomyelitis Hyperlipidemia Home Medications ?Medication ?Instructions ?Recorded ?Last Taken ?Type aspirin 81 mg chewable tablet 81 mg PO DAILY@0800 Blood thinner 12/27/15 01/07/22 History ferrous sulfate 325 mg (65 mg 325 mg PO DAILY 01/01/22 Unknown History iron) tablet hydrocodone-acetaminophen 5-325mg 1 tab PO Q6H 3 days #12 tabs 01/08/22 Unknown Rx 5mg-325mg atorvastatin 40 mg tablet 40 mg PO QHS 12/03/24 Unknown History bupropion HCl 150 mg 24 hr tablet, 150 mg PO DAILY 12/03/24 Unknown History extended release cephalexin 500 mg capsule 500 mg PO Q12 #14 CAPSULES 12/03/24 Unknown Rx ezetimibe 10 mg tablet 10 mg PO DAILY 12/03/24 Unknown History glipizide 2.5 mg tablet, extended 2.5 mg PO DAILY 12/03/24 Unknown History release 24 hr metformin 1,000 mg tablet 1,000 mg PO BID 12/03/24 Unknown History pioglitazone 30 mg tablet 30 mg PO DAILY 12/03/24 Unknown History Allergy/AdvReac Type Severity Reaction Status Date / Time latex Allergy Rash Verified 12/03/24 19:26 Surgical History Hx of eye surgery Hx of left cataract extraction Social History household members: none Smoking Status: Current every day smoker tobacco type: cigarettes substance use type: does not use ROS ROS ED ROS Narrative see HPI EXAM Physical Exam Narrative Exam Narrative: Vital signs: Reviewed General: Alert and orientedx3. No acute distress HEENT: Head is normocephalic and atraumatic, sinuses nontender, pupils equal round and reactive. Nares are patent. Oropharynx and throat exams normal. Neck: Supple without lymphadenopathy nontender Cardiovascular: Regular rate and rhythm, no murmurs. No rubs or gallops. Normal S1 and S2 Respiratory: Clear to auscultation bilaterally. No wheezes, rales, rhonchi Abdominal: Soft and nontender to palpation. Normal bowel sounds. No guarding or rebound. Nonsurgical abdomen Extremities: Right partial foot amputation. No erythema, warmth or drainage. No tenderness. No bruising. Normal range of motion. Normal sensation. Skin: No rash or redness. Neurological: Cranial nerves II through XII are grossly intact. Normal strength and sensation. Normal cerebellar function The rest of the physical exam is unremarkable Const Vital Signs: 12/03/24 19:25 12/03/24 19:48 12/03/24 21:00 Temperature 97 F L Temperature Source Oral Pulse Rate 92 82 Respiratory Rate 16 18 Respiratory Effort Normal Non-Labored Respiratory Depth Respiratory Pattern Normal Blood Pressure 161/81 H 147/61 H Blood Pressure Mean 107 89 Pulse Ox 98 100 Oxygen Delivery Method Room Air 12/03/24 22:00 12/03/24 22:26 12/03/24 23:00 Temperature Temperature Source Pulse Rate 89 89 Respiratory Rate 18 16 Respiratory Effort Short of Breath Labored Accessory Muscle Use Respiratory Depth Shallow Respiratory Pattern Gasping Blood Pressure 134/79 H Blood Pressure Mean 97 Pulse Ox 98 98 96 Oxygen Delivery Method Room Air Ambu-Bag Non-Rebreather 12/03/24 23:18 12/03/24 23:33 12/04/24 00:00 Temperature Temperature Source Pulse Rate 111 H 97 84 Respiratory Rate 16 16 16 Respiratory Effort Respiratory Depth Respiratory Pattern Normal Normal Blood Pressure 124/64 H Blood Pressure Mean 84 Pulse Ox 100 95 95 Oxygen Delivery Method Mechanical Ventilator 12/04/24 00:36 12/04/24 01:00 Temperature 96.7 F L Temperature Source Core Pulse Rate 78 82 Respiratory Rate 24 H 20 H Respiratory Effort Respiratory Depth Respiratory Pattern Blood Pressure 127/68 H Blood Pressure Mean 87 Pulse Ox 95 94 Oxygen Delivery Method Mechanical Ventilator MDM MDM MDM Narrative Medical decision making narrative: Patient is a 64-year-old female presenting to the emergency department for abdominal discomfort and dysuria. Patient was seen and examined. Vitals are stable. Patient resting in bed comfortably in no acute distress. Differential includes but is not limited to: UTI, constipation, dehydration CBC with no leukocytosis and acute on chronic anemia of 9.6. CMP with glucose of 211, no anion gap or abnormal bicarb to suggest DKA or HHS. Mild ANTONIO with BUN of 25 and creatinine of 1.53. Urinalysis with 2+ bacteria, WBCs, leukocyte esterase and nitrites consistent with a urinary tract infection. Patient was given oral Keflex. Patient reported she was feeling well and did not want to wait to go home. Did not want to finish fluid bolus. She ambulated to the bathroom without difficulty and when she went to sit down she developed diaphoresis, lightheadedness and urinary incontinence. States that she did not feel well. Nursing staff asked me to reevaluate the patient. Upon reevaluation, patient was very diaphoretic and was unresponsive. She was foaming at the mouth. She was apneic. She did have a strong radial pulse. She was taken to room 1 and placed on a nonrebreather. Became hypoxic with a good waveform and decision was made to intubate for airway protection. Etomidate and rocuronium used for RSI meds. Patient was intubated with glide a scope and a 7-1/2 ET tube with tube at 7-1/2 at the lip. Patient tolerated the procedure well. Patient placed on propofol and fentanyl drips. Given the acute change in clinical and mental status, CT of the brain, CTA of the chest and CT of the abdomen with contrast was obtained. ABG obtained and shows acute hypercapnic respiratory failure. Given the acute change, concern for either flash pulmonary edema or aspiration with possible ards. Evaluated ETT tube placement on CT given she went directly after intubation. ETT tube pulled back about 2 cm after my read on the CT. Repeat CBC was obtained as well as a lactate, blood cultures, troponin and EKG. EKG shows sinus tachycardia at a rate of 126 with an incomplete right bundle branch block. There are some nonspecific ST changes. No dysrhythmia. Repeat CBC with again no leukocytosis and stable hemoglobin of 9.5. Lactate within normal limits. Initial troponin of 20, reflex of 36. CT brain with no acute intracranial abnormalities. CTA chest with no PE. Bilateral widespread ground-glass densities in the upper lobes, right middle lobe, lingula and bilateral lower lobes, probably multifocal pneumonia. CT abd shows diffuse thickening of the stomach suggestive of gastritis. Heterogeneous nephrogram of the left kidney, possibly acute pyelonephritis without obstructing stone or drainable abscess. Complex lesion is noted in the upper pole of the left kidney measuring 5.3 x 4.9 cm, suspicious for neoplasm, not present on the prior exam. Admitted to the ICU under Dr. Alexander for further management prior to CT results, will refer to him for abx management of the pneumonia. Clinical impression: UTI Acute hypercapnic respiratory failure Multifocal pneumonia History & Record Review Discussion w/independent historian: Patient and Family Additional record(s) reviewed:: Prior labs Lab Data Attestation: I reviewed the patient's lab results. Labs: Laboratory Results - last 24 hr 12/03/24 12/03/24 12/03/24 20:55 20:57 22:08 WBC 5.9 RBC 3.47 L Hgb 9.6 L Hct 30.6 L MCV 88.2 MCH 27.7 MCHC 31.4 L RDW Std Deviation 45.1 H RDW Coeff of Nuno 14.1 Plt Count 253 MPV 9.4 Immature Gran % (Auto) 0.700 Neut % (Auto) 69.6 Lymph % (Auto) 16.7 L Kimble % (Auto) 6.8 Eos % (Auto) 5.7 H Baso % (Auto) 0.5 Absolute Neuts (auto) 4.1 Absolute Lymphs (auto) 0.99 Nucleated RBC % 0 Sodium 138 Potassium 3.9 Chloride 104 Carbon Dioxide 23.1 Anion Gap 11 BUN 25 H Creatinine 1.53 H Estim Creat Clear Calc 34.26 L Est GFR (MDRD) Non-Af 37 L BUN/Creatinine Ratio 16.6 Glucose 211 H Lactic Acid Calcium 9.0 Total Bilirubin 0.29 AST 17 ALT 11 Alkaline Phosphatase 120 H Total Creatine Kinase 39 Troponin T High Sens 20 H Troponin T Hi Sens 2 Hr Total Protein 7.2 Albumin 3.9 Globulin 3.3 Albumin/Globulin Ratio 1.2 Triglycerides 64 Lipase 41 Urine Color Straw Urine Clarity Cloudy Urine pH 6.0 Ur Specific [place] 1.010 Urine Protein 100 H Urine Glucose (UA) 100 H Urine Ketones Negative Urine Occult Blood 150 H Urine Nitrite Positive H Urine Bilirubin Negative Urine Urobilinogen Normal Ur Leukocyte Esterase 500 H Urine RBC 5-10 SEEN Urine WBC 50-100 SEEN Ur Squamous Epith Cells 0-5 SEEN Urine Bacteria 2+ Urine Mucus 0 SEEN POC Glucose 169 H 12/03/24 12/04/24 23:47 00:03 WBC 10.3 RBC 3.34 L Hgb 9.5 L Hct 29.2 L MCV 87.4 MCH 28.4 MCHC 32.5 RDW Std Deviation 44.6 H RDW Coeff of Nuno 13.9 Plt Count 254 MPV 9.9 Immature Gran % (Auto) 0.500 Neut % (Auto) 87.1 H Lymph % (Auto) 6.4 L Kimble % (Auto) 3.3 Eos % (Auto) 2.4 Baso % (Auto) 0.3 Absolute Neuts (auto) 9.0 H Absolute Lymphs (auto) 0.66 L Nucleated RBC % 0 Sodium Potassium Chloride Carbon Dioxide Anion Gap BUN Creatinine Estim Creat Clear Calc Est GFR (MDRD) Non-Af BUN/Creatinine Ratio Glucose Lactic Acid 1.8 Calcium Total Bilirubin AST ALT Alkaline Phosphatase Total Creatine Kinase Troponin T High Sens Troponin T Hi Sens 2 Hr 36 H Total Protein Albumin Globulin Albumin/Globulin Ratio Triglycerides Lipase Urine Color Urine Clarity Urine pH Ur Specific [place] Urine Protein Urine Glucose (UA) Urine Ketones Urine Occult Blood Urine Nitrite Urine Bilirubin Urine Urobilinogen Ur Leukocyte Esterase Urine RBC Urine WBC Ur Squamous Epith Cells Urine Bacteria Urine Mucus POC Glucose ABG Data ABG results: ABG 12/03/24 12/04/24 23:08 00:21 Specimen Type ART ART Sample Site R Radial R Radial pH 7.16 L* 7.35 Bicarbonate Actual 22.2 25.0 Total CO2 24 26 Base Excess -7 L -1 O2 Saturation 97 92 L O2 % 60.0 30.0 ABG pCO2 62.4 H 45.8 H ABG pO2 116 H 66 L Aftab Test Positive Positive Respiration Rate 16 16 O2 Delivery Device Adult Vent Adult Vent Vent Mode AC Tidal Volume 400.0 450.0 POC PEEP 5 5 Crit Call To/Read Back Yes Blood Gas Notified Whom Dr. Asher Blood Gas Notified Time 23:11:14 Clinical Comments [facility]+ Radiography Diagnostic Testing: Clinical Impression(s) from Imaging Studies Abdomen/Pelvis CT 12/03/24 22:11 IMPRESSION: Bilateral multifocal ground-glass density/airspace consolidations more prominent in the lower lobes, probably multifocal pneumonia. Interval appearance of minimal right pleural effusion. The tip of the enteric feeding tube is at the level of the gastroesophageal junction. It needs to be advanced 4 cm. Diffuse thickening of the stomach suggestive of gastritis. Heterogeneous nephrogram of the left kidney, possibly acute pyelonephritis without obstructing stone or drainable abscess. Complex lesion is noted in the upper pole of the left kidney measuring 5.3 x 4.9 cm, suspicious for neoplasm, not present on the prior exam. Interval appearance of left perinephric enlarged lymph nodes with the largest measuring 2.2 cm. Robles catheter balloon is seen in the bladder. Diffuse thickening of the bladder, probably cystitis. Moderate amount of fecal residue in the large bowels, probably constipation with associated minimal stercoral colitis. Diffuse thickening of the stomach suggestive of gastritis. Reading Location: [id number] Brain CT 12/03/24 22:11 IMPRESSION: No evidence of acute intracranial pathology. Reading Location: [id number] Chest CTA 12/03/24 22:34 IMPRESSION: No demonstrated pulmonary embolism or arterial dissection. The endotracheal tube is just above the right main bronchus. It needs to be retrieved 2 cm. Enteric feeding tube is at the level of the gastroesophageal junction. It needs to be advanced 4 cm. Mild cardiomegaly. Moderate coronary artery calcifications. Multinodular thyroid goiter without tracheal narrowing or deviation. The largest nodule measures 1.3 cm. Mild cardiomegaly. Mild right pleural effusion. Passive atelectatic airspace disease of the right lower lobe. Mild osteopenia. Moderate diffuse spondylosis. Increased dorsal kyphosis. Mildly enlarged mediastinal lymph nodes with the largest measuring 1.3 cm. Bilateral widespread ground-glass densities in the upper lobes, right middle lobe, lingula and bilateral lower lobes, probably multifocal pneumonia. 3 mm left renal nonobstructing stone. Heterogeneous nephrogram with possible complex left renal upper pole mass. Reading Location: [place] [id number] Critical Care Time Critical Care Time: Yes Critical care time (excluding procedures): 30-74 minutes (30), Discussing w/Patient &/or Family/Switch Repairer, Discussing w/Consultants and Performing Direct Patient Care at Bedside Discharge Plan Triage Chief Complaint: General Illness ED Provider: Blanca Asher Dx/Rx/DC Orders Clinical Impression: Acute UTI Primary Care Provider: Christiano Ramirez Disposition Disposition: Home, Self Care
--- NOTE | 2024-12-03 22:00 | ED.RN ---
2200: This RN was in the patient's room to discharge the patient per MD orders. This RN educated the patient on discharge instructions, the patient was alert and talking with this RN, explaining that the patient was incontinent of urine. This RN completed appropriate documentation for the patient's discharge and was taking the monitor off the patient, the patient stated that she would not like to finish her IV fluids and would prefer to go home and change her clothes. When the patient sat up and stated that she didn't feel well. The patient became very diaphoretic and pale, this RN notified the MD and obtained a blood sugar on the patient. The patient's Tegaderm was no longer attached to the patient's arms d/t the diaphoresis which lost our IV access. 2205: MD at bedside to reassess the patient. The patient was alert and responsive but irregular breathing pattern and erratically moving her arms to her head and back onto the bed. The patient's daughter was at bedside, this RN educated the patient's daughter on what the patient's test results shown and how the patient stated she was no longer feeling well. This RN reapplied the patient's blood pressure cuff and pulse ox. 2210: This RN went to grab supplies to reestablish IV access. However, this RN forgot tincture and called for JOSSELYN Richards to grab tincture to attach the new Tegaderm, on this RN's way back into the room with JOSSELYN Richards, the patient's eyes became dilated and rolled to the back of her head. JOSSELYN Richards witnessed this and called for RT. RT at bedside, the patient started to foam at the mouth, RT was suctioning the patient's mouth. This RN was establishing an IV, JOSSELYN Richards was reestablishing the patient's complete monitor. The patient's pulse ox reading was not reading with a solid pleth, NC and supplemental 02 applied by RT and MD confirmed that the patient did have a pulse. But the patient was no longer responding verbally. 2215: The patient was moved into room 1. MD decided to intubate to maintain the patient's airway. Another IV established, the patient was moved to a nonrebreather and had a pulse ox of 50%. 2220: Ambu bag applied and utilized while medications were drawn up for intubation. See critical care assessment and MAR documentation.
--- NOTE | 2024-12-03 22:11 | CT_ITS ---
PROCEDURE: ABDOMEN/PELVIS W IV CONT ONLY 12/03/2024 REASON FOR EXAM: ABD PAIN TECHNIQUE: Procedure Code: [id number] Modality: CT Procedure: ABDOMEN/PELVIS W IV CONT ONLY Coronal and Sagittal reconstruction series were provided. CONTRAST: OMNIPAQUE 350 VOLUME: 100 mL One or more dose reduction techniques were used (e.g., Automated exposure control, adjustment of the mA and/or kV according to patient size, use of iterative reconstruction technique. RADIATION DOSE SUMMARY: CTDlvol: 20.62 mGy DLP: 2807 mGycm COMPARISON: CT scan on 09/10/2021. FINDINGS: Bilateral multifocal ground-glass density/airspace consolidations more prominent in the lower lobes, probably multifocal pneumonia. Interval appearance of minimal right pleural effusion. The tip of the enteric feeding tube is at the level of the gastroesophageal junction. It needs to be advanced 4 cm. Diffuse thickening of the stomach suggestive of gastritis. Heterogeneous nephrogram of the left kidney, possibly acute pyelonephritis without obstructing stone or drainable abscess. Complex lesion is noted in the upper pole of the left kidney measuring 5.3 x 4.9 cm, suspicious for neoplasm, not present on the prior exam. Interval appearance of left perinephric enlarged lymph nodes with the largest measuring 2.2 cm. Robles catheter balloon is seen in the bladder. Diffuse thickening of the bladder, probably cystitis. Moderate amount of fecal residue in the large bowels, probably constipation with associated minimal stercoral colitis. Diffuse thickening of the stomach suggestive of gastritis. Normal liver. Normal gallbladder and extrahepatic biliary system. Normal spleen. Normal pancreas. Normal bilateral adrenal glands. Normal size of the right kidney. There is no right renal mass. There are no right renal calculi. There is no right hydronephrosis. Normal visualized right ureter. There are no left renal calculi. There is no left hydronephrosis. Normal visualized left ureter. Normal small intestine. The appendix is visualized and appears normal. There is no demonstrated peritoneal fluid. Calcified atheromatous plaques of the abdominal aorta. Normal inferior vena cava. There is no pelvic mass lesion or lymphadenopathy. There is no pelvic fluid. Normal abdominal wall. Mild osteopenia. Mild benign chronic osteoporotic compression deformity of T12 vertebral body. CT/Abdomen/Pelvis W IV Cont ONLY IMPRESSION: Bilateral multifocal ground-glass density/airspace consolidations more prominen t in the lower lobes, probably multifocal pneumonia. Interval appearance of minimal right pleural effusion. The tip of the enteric feeding tube is at the level of the gastroesophageal lona ction. It needs to be advanced 4 cm. Diffuse thickening of the stomach suggestive of gastritis. Heterogeneous nephrogram of the left kidney, possibly acute pyelonephritis with out obstructing stone or drainable abscess. Complex lesion is noted in the upper pole of the left kidney measuring 5.3 x 4. 9 cm, suspicious for neoplasm, not present on the prior exam. Interval appearance of left perinephric enlarged lymph nodes with the largest m easuring 2.2 cm. Robles catheter balloon is seen in the bladder. Diffuse thickening of the bladder, probably cystitis. Moderate amount of fecal residue in the large bowels, probably constipation wit h associated minimal stercoral colitis. Diffuse thickening of the stomach suggestive of gastritis. Reading Location[facility]
--- NOTE | 2024-12-03 22:11 | CT_ITS ---
PROCEDURE: CT BRAIN/HEAD WITHOUT CONTRAST 12/03/2024 REASON FOR EXAM: AMS TECHNIQUE: Procedure Code: CTBR Modality: CT Procedure: BRAIN/HEAD WITHOUT CONTRAST Coronal and Sagittal reconstruction series were provided. One or more dose reduction techniques were used (e.g., Automated exposure control, adjustment of the mA and/or kV according to patient size, use of iterative reconstruction technique. RADIATION DOSE SUMMARY: CTDlvol: 44.99 mGy DLP: 863.6 mGycm COMPARISON: None. FINDINGS: No acute intracranial hemorrhage, extra-axial collection, mass effect or evidence of acute infarct. Mild generalized brain parenchymal volume loss and chronic microangiopathic changes. Absent [place] ocular lenses. Atherosclerotic vascular calcifications. Intact skull base and calvarium. Well- aerated paranasal sinuses and mastoid air cells. Partially imaged endotracheal and orogastric tubes. CT/Brain/Head without Contrast IMPRESSION: No evidence of acute intracranial pathology. Reading Location: [id number]
--- NOTE | 2024-12-03 22:34 | CT_ITS ---
PROCEDURE: CTA CHEST W/WO CONTRAST 12/03/2024 REASON FOR EXAM: RULE OUT PE TECHNIQUE: Procedure Code: [id number] Modality: CT Procedure: CTA CHEST W/WO CONTRAST Multiplanar Sagittal and Coronal images were obtained. CONTRAST: Isovue 370 VOLUME: 100 mL One or more dose reduction techniques were used (e.g., Automated exposure control, adjustment of the mA and/or kV according to patient size, use of iterative reconstruction technique). RADIATION DOSE SUMMARY: CTDlvol: 20.16 mGy DLP: 1178 mGycm COMPARISON: 12/04/2024. FINDINGS: The endotracheal tube is just above the right main bronchus. It needs to be retrieved 2 cm. Enteric feeding tube is at the level of the gastroesophageal junction. It needs to be advanced 4 cm. Mild cardiomegaly. Moderate coronary artery calcifications. Multinodular thyroid goiter without tracheal narrowing or deviation. The largest nodule measures 1.3 cm. Mild cardiomegaly. Mild right pleural effusion. Passive atelectatic airspace disease of the right lower lobe. Mild osteopenia. Moderate diffuse spondylosis. Increased dorsal kyphosis. Mildly enlarged mediastinal lymph nodes with the largest measuring 1.3 cm. Bilateral widespread ground-glass densities in the upper lobes, right middle lobe, lingula and bilateral lower lobes, probably multifocal pneumonia. 3 mm left renal nonobstructing stone. Heterogeneous nephrogram with possible complex left renal upper pole mass. Normal enhancement of the main pulmonary artery and right and left pulmonary arteries. Normal enhancement of the bilateral peripheral pulmonary arteries. There is no demonstrated pulmonary embolism. Normal thoracic aorta and visualized great vessels. There is no demonstrated aortic dissection. Normal pericardium. Normal visualized trachea and bronchi. CT/CTA Chest W/WO Contrast IMPRESSION: No demonstrated pulmonary embolism or arterial dissection. The endotracheal tube is just above the right main bronchus. It needs to be ret rieved 2 cm. Enteric feeding tube is at the level of the gastroesophageal junction. It needs to be advanced 4 cm. Mild cardiomegaly. Moderate coronary artery calcifications. Multinodular thyroid goiter without tracheal narrowing or deviation. The large st nodule measures 1.3 cm. Mild cardiomegaly. Mild right pleural effusion. Passive atelectatic airspace disease of the right lower lobe. Mild osteopenia. Moderate diffuse spondylosis. Increased dorsal kyphosis. Mildly enlarged mediastinal lymph nodes with the largest measuring 1.3 cm. Bilateral widespread ground-glass densities in the upper lobes, right middle lo be, lingula and bilateral lower lobes, probably multifocal pneumonia. 3 mm left renal nonobstructing stone. Heterogeneous nephrogram with possible complex left renal upper pole mass. Reading Location: [facility] [id number]
[2024-12-03] MEDS: Propofol 10MG/Ml 1,000 MG/100 ML Bottle 4.3 MG CONT INF (22:38)
--- NOTE | 2024-12-03 22:38 | EKG12_ITS ---
Test Reason : DYSRHYTHMIA Blood Pressure : */* mmHG Vent. Rate : 126 BPM Atrial Rate : 126 BPM P-R Int : 162 ms QRS Dur : 96 ms QT Int : 294 ms P-R-T Axes : 75 -56 106 degrees QTcB Int : 425 ms Sinus tachycardia Incomplete right bundle branch block Left anterior fascicular block Left ventricular hypertrophy with repolarization abnormality ( R in aVL , [place] product ) Septal infarct , age undetermined Abnormal ECG Confirmed by KEVIN LUX, CONSUELO ([id number]), non linear editor HERMINIA SIMON ([id number]) on 12/04/2024 8:09:56 AM Referred By: Confirmed By: CONSUELO BROWN MD
[2024-12-03] MEDS: fentaNYL drip 100 ML 2.5 MCG CONT INF (22:43)
[2024-12-03 23:08] LABS: CPK Total, Creatine Kinase 39 U/L (24-195); Triglycerides 64 mg/dL
[2024-12-03 23:14] LABS: Allen Test Positive; Base Excess -7 mmol/L (-2 to +2); FI02 60.0; PEEP 5; PO2 116 mmHG (75-100); RR 16; SITE R Radial; SO2 97 % (95-99); Time Given 23:11:14
[2024-12-03 23:18] LABS: Troponin T High Sensitivity 20 ng/L (<=14)
[2024-12-04] VITALS (59 sets, daily range): BP systolic 71–147; BP diastolic 42–74; PULSE 58–90; RESP 16–24; TEMP -11.9–38.3; O2SAT 85–100; BMI 27.9
[2024-12-04 00:25] LABS: Allen Test Positive; Base Excess -1 mmol/L (-2 to +2); Comment ACVC+; FI02 30.0; PEEP 5; PO2 66 mmHG (75-100); RR 16; SITE R Radial; SO2 92 % (95-99)
[2024-12-04 00:34] LABS: Troponin T High Sens 2 HR 36 ng/L (<=14)
[2024-12-04 00:36] LABS: Hematocrit 29.2 % (37-47); Hemoglobin 9.5 g/dL (12.0-15.0); Immature Granulocytes Count 0.050 X10^3/uL (0.0-0.0); Mean Corp Hgb Conc 32.5 g/dL (32-36); Mean Corpuscular Volume 87.4 fL (81-99); Mean Platelet Vol. 9.9 fl (6.2-12.0); NRBC Flagged by Analyzer 0 % (0-5); Platelet Count 254 K/mm3 (150-450); RBC Distribution Width CV 13.9 % (11.6-14.6); RBC Distribution Width SD 44.6 fl (35.1-43.9); Red Blood Count 3.34 M/mm3 (4.2-5.4); White Blood Count 10.3 K/mm3 (4.4-11.0)
--- NOTE | 2024-12-04 01:01 | PCM.HP.STD ---
HPI - General General Date of Admission: 12/04/24 Date of Service: 12/04/24 Chief Complaint: Acute respiratory failure, UTI HPI Narrative ROSALINO LEVY, is a 64 F who presents to the emergency room with chief complaint of abdominal pain. Patient was described as an extremely poor historian but had told the ER physician that she woke up and felt funny . This had resolved after a few minutes or so and she was unable to describe if she had had a headache dizziness or lightheadedness. She has not had recurrence of the symptoms but has had some lower abdominal discomfort and dysuria today. She denied fevers, chills, chest pain shortness of breath, diarrhea, constipation, hematuria. She denied having visual disturbances or speech difficulty or numbness or tingling in any extremities.. She denied having recent falls neck pain or back pain as well. Workup in the emergency room was unremarkable except for a urinary tract infection for which she was to be treated for and set up for discharge when patient suddenly became short of breath and the ER physician described the patient as having agonal breathing. The patient was immediately intubated and placed on a ventilator and sedated on propofol drip. Patient is currently sedated and intubated at the time of my evaluation. Laboratory studies reveal white blood cell count of 10.3, hemoglobin 9.5, hematocrit 29.2, platelets 254, sodium 138, potassium 3.9, chloride 104, bicarb 23.1, BUN 25, creatinine 1.5, glucose 211, AST 17, ALT 11, alk phos 120, lactate 1.8. Initial ABG at time of intubation was pH 7.16 pCO2 62.4 pO2 116 following being placed on ventilation ABG improved to a pH of 7.35 with a pCO2 of 45.8 and a pO2 of 66 on assist-control volume control ventilation setting. Urinalysis is positive for nitrates with 500 leukocyte esterase and 2+ bacteria. Patient will be continued on mechanical ventilation overnight and will give IV antibiotics to cover her for her urinary tract infection. [facility] Medical History Wears glasses Post-menopausal Alcohol use Depression History of steroid therapy Arthritis Uses wheelchair Bladder disease Low iron Stroke/cerebrovascular accident Dietary restriction History of renal disease Chronic cough Smoker Shortness of breath on exertion History of pain when walking DM type 2 (diabetes mellitus, type 2) Amputation of one or more toes Peripheral arterial disease Gas gangrene Osteomyelitis Hyperlipidemia Home Medications ?Medication ?Instructions ?Recorded ?Last Taken ?Type aspirin 81 mg chewable tablet 81 mg PO DAILY@0800 Blood thinner 12/27/15 01/07/22 History ferrous sulfate 325 mg (65 mg 325 mg PO DAILY 01/01/22 Unknown History iron) tablet hydrocodone-acetaminophen 5-325mg 1 tab PO Q6H 3 days #12 tabs 01/08/22 Unknown Rx 5mg-325mg atorvastatin 40 mg tablet 40 mg PO QHS 12/03/24 Unknown History bupropion HCl 150 mg 24 hr tablet, 150 mg PO DAILY 12/03/24 Unknown History extended release cephalexin 500 mg capsule 500 mg PO Q12 #14 CAPSULES 12/03/24 Unknown Rx ezetimibe 10 mg tablet 10 mg PO DAILY 12/03/24 Unknown History glipizide 2.5 mg tablet, extended 2.5 mg PO DAILY 12/03/24 Unknown History release 24 hr metformin 1,000 mg tablet 1,000 mg PO BID 12/03/24 Unknown History pioglitazone 30 mg tablet 30 mg PO DAILY 12/03/24 Unknown History Allergy/AdvReac Type Severity Reaction Status Date / Time latex Allergy Rash Verified 12/03/24 19:26 Surgical History Hx of eye surgery Hx of left cataract extraction Social History household members: none Smoking Status: Current every day smoker tobacco type: cigarettes substance use type: does not use ROS Review of Systems ROS Unobtainable: due to endotracheal tube Vital Signs Vital Signs Vital Signs: 12/03/24 19:25 12/03/24 19:48 12/03/24 21:00 Temperature 97 F L Temperature Source Oral Pulse Rate 92 82 Respiratory Rate 16 18 Respiratory Effort Normal Non-Labored Respiratory Depth Respiratory Pattern Normal Blood Pressure 161/81 H 147/61 H Blood Pressure Mean 107 89 Pulse Ox 98 100 Oxygen Delivery Method Room Air 12/03/24 22:00 12/03/24 22:26 12/03/24 23:00 Temperature Temperature Source Pulse Rate 89 89 Respiratory Rate 18 16 Respiratory Effort Short of Breath Labored Accessory Muscle Use Respiratory Depth Shallow Respiratory Pattern Gasping Blood Pressure 134/79 H Blood Pressure Mean 97 Pulse Ox 98 98 96 Oxygen Delivery Method Room Air Ambu-Bag Non-Rebreather 12/03/24 23:18 12/03/24 23:33 12/04/24 00:00 Temperature Temperature Source Pulse Rate 111 H 97 84 Respiratory Rate 16 16 16 Respiratory Effort Respiratory Depth Respiratory Pattern Normal Normal Blood Pressure 124/64 H Blood Pressure Mean 84 Pulse Ox 100 95 95 Oxygen Delivery Method Mechanical Ventilator Weight Weight: 157 lb 6.4 oz Body Mass Index (BMI) 27.8 Physical Exam Const Constitutional Narrative: Sedated and intubated HEENT normocephalic and head/scalp atraumatic Eyes PERRL Neck no lymphadenopathy Lymph Lymphatic: no lymphadenopathy noted Resp Effort and Inspection: respiratory distress Auscultation: rhonchi upper bilaterally Cardio regular rate, regular rhythm, S1 normal heart sound, S2 normal heart sound and no murmurs GI normal to inspection, nondistended, normoactive bowel sounds and soft to palpation Extremity normal capillary refill Extremity Narrative: Partial amputation right foot wrapped in Huber bandage Skin General Skin Exam: no breakdown Neuro Neuro Narrative: Patient is currently sedated on propofol Psych Psych Narrative: Unable to assess Results Lab / Micro Data 12/04/24 00:03 12/03/24 20:55 Labs: Laboratory Results - last 24 hr 12/03/24 20:55: WBC 5.9, RBC 3.47 L, Hgb 9.6 L, Hct 30.6 L, MCV 88.2, MCH 27.7, MCHC 31.4 L, RDW Std Deviation 45.1 H, RDW Coeff of Nuno 14.1, Plt Count 253, MPV 9.4, Immature Gran % (Auto) 0.700, Neut % (Auto) 69.6, Lymph % (Auto) 16.7 L, [place] % (Auto) 6.8, Eos % (Auto) 5.7 H, Baso % (Auto) 0.5, Absolute Neuts (auto) 4.1, Absolute Lymphs (auto) 0.99, Nucleated RBC % 0, Sodium 138, Potassium 3.9, Chloride 104, Carbon Dioxide 23.1, Anion Gap 11, BUN 25 H, Creatinine 1.53 H, Estim Creat Clear Calc 34.26 L, Est GFR (MDRD) Non-Af 37 L, BUN/Creatinine Ratio 16.6, Glucose 211 H, Calcium 9.0, Total Bilirubin 0.29, AST 17, ALT 11, Alkaline Phosphatase 120 H, Total Creatine Kinase 39, Troponin T High Sens 20 H, Total Protein 7.2, Albumin 3.9, Globulin 3.3, Albumin/Globulin Ratio 1.2, Triglycerides 64, Lipase 41 12/03/24 20:57: Urine Color Straw, Urine Clarity Cloudy, Urine pH 6.0, Ur Specific [place] 1.010, Urine Protein 100 H, Urine Glucose (UA) 100 H, Urine Ketones Negative, Urine Occult Blood 150 H, Urine Nitrite Positive H, Urine Bilirubin Negative, Urine Urobilinogen Normal, Ur Leukocyte Esterase 500 H, Urine RBC 5-10 SEEN, Urine WBC 50-100 SEEN, Ur Squamous Epith Cells 0-5 SEEN, Urine Bacteria 2+, Urine Mucus 0 SEEN 12/03/24 22:08: POC Glucose 169 H 12/03/24 23:47: Troponin T Hi Sens 2 Hr 36 H 12/04/24 00:03: WBC 10.3, RBC 3.34 L, Hgb 9.5 L, Hct 29.2 L, MCV 87.4, MCH 28.4, MCHC 32.5, RDW Std Deviation 44.6 H, RDW Coeff of Nuno 13.9, Plt Count 254, MPV 9.9, Immature Gran % (Auto) 0.500, Neut % (Auto) 87.1 H, Lymph % (Auto) 6.4 L, [place] % (Auto) 3.3, Eos % (Auto) 2.4, Baso % (Auto) 0.3, Absolute Neuts (auto) 9.0 H, Absolute Lymphs (auto) 0.66 L, Nucleated RBC % 0, Lactic Acid 1.8 ABG Data ABG results: ABG 12/03/24 12/04/24 23:08 00:21 Specimen Type ART ART Sample Site R Radial R Radial pH 7.16 L* 7.35 Bicarbonate Actual 22.2 25.0 Total CO2 24 26 Base Excess -7 L -1 O2 Saturation 97 92 L O2 % 60.0 30.0 ABG pCO2 62.4 H 45.8 H ABG pO2 116 H 66 L Aftab Test Positive Positive Respiration Rate 16 16 O2 Delivery Device Adult Vent Adult Vent Vent Mode AC AC Tidal Volume 400.0 450.0 POC PEEP 5 5 Crit Call To/Read Back Yes Blood Gas Notified Whom Dr. Asher Blood Gas Notified Time 23:11:14 Clinical Comments ACVC+ Imaging Radiology Impression Brain CT 12/03/24 22:11 IMPRESSION: No evidence of acute intracranial pathology. Reading Location: [facility] Assessment & Plan Assessment/Plan (1) Acute UTI: (2) DM type 2 (diabetes mellitus, type 2): (3) Hypertension: (4) Hyperlipidemia: (5) Acute respiratory failure: PLAN: Plan 1. Acute respiratory failure -admit patient to ICU, consult ICU research clerk for ICU management, continue AC/VC ventilation and propofol drip initiated in the emergency department. Repeat ABG in a.m. chest x-ray in a.m. CBC BMP in a.m. as well 2. Urinary tract infection?Rocephin 1 g IV every 24 hours 3. History of hypertension?will hold routine medications while patient is sedated and intubated and address blood pressure as needed 4. Hyperlipidemia?statin will be on hold while patient is n.p.o. 5. Diabetes?will cover patient with low medium dose sliding scale insulin every 6 hours while NPO 6. DVT prophylaxis?low molecular weight heparin CODE STATUS full code verified with family members Charges/Coding Visit Charges Inpatient E&M: 94836 Init Hosp L2
[2024-12-04] MEDS: 0.9% Normal Saline (1000mL) 1,000 ML 125 ML IV (02:32)
[2024-12-04] MEDS: Piperacil/Tazobactam 3.375 GM in 0.9% Normal Saline (50mL MB+) 50 ML IV (02:35)
[2024-12-04 02:53] LABS: Allen Test Positive; Base Excess 0 mmol/L (-2 to +2); FI02 40.0; PEEP 5; PO2 81 mmHG (75-100); RR 18; SITE L Radial; SO2 96 % (95-99)
[2024-12-04] MEDS: Vancomycin HCl 1,750 MG in 0.9% Normal Saline (500mL Bag) 500 ML 250 MG IV (03:04)
[2024-12-04 03:50] LABS: Troponin T High Sens 4 HR 166 ng/L (<=14)
[2024-12-04 04:08] LABS: Anion Gap 13 (5-15); BUN 24 mg/dL (4-19); BUN/Creat Ratio 17.0 RATIO (10-20); Calcium,Total 8.2 mg/dL (7.6-11.0); Carbon Dioxide 21.2 mmol/L (21.0-32.0); Chloride 108 mmol/L (98-108); Estimated Creatinine Clearance 37.76 ml/min (50-250); Glucose 185 mg/dL (70-99); Potassium 3.9 mmol/L (3.3-5.1)
[2024-12-04 04:51] LABS: Hematocrit 28.3 % (37-47); Hemoglobin 9.2 g/dL (12.0-15.0); Immature Granulocytes Count 0.040 X10^3/uL (0.0-0.0); Mean Corp Hgb Conc 32.5 g/dL (32-36); Mean Corpuscular Volume 86.0 fL (81-99); Mean Platelet Vol. 9.5 fl (6.2-12.0); NRBC Flagged by Analyzer 0 % (0-5); Platelet Count 240 K/mm3 (150-450); RBC Distribution Width CV 14.0 % (11.6-14.6); RBC Distribution Width SD 43.9 fl (35.1-43.9); Red Blood Count 3.29 M/mm3 (4.2-5.4); White Blood Count 10.4 K/mm3 (4.4-11.0)
--- NOTE | 2024-12-04 05:00 | RAD_ITS ---
PROCEDURE: CHEST 1 VIEW (PORTABLE) 12/04/2024 REASON FOR EXAM: INTUBATED TECHNIQUE: Frontal view of the chest. COMPARISON: None FINDINGS: There is an ET tube in position with its tip 2.6 cm above the level of the hina. There is an enteric tube seen with its tip of the gastroesophageal junction. Heart size is upper normal. Central vascularity appears mildly increased. There is consolidation in the right perihilar and midlung. There is no pneumothorax. There is no definite effusion. There is no visible acute bony abnormality. RAD/Chest 1 View (Portable) IMPRESSION: Tubes and lines in position. Central vascularity appears mildly increased. There is consolidation in the right perihilar and midlung. Reading Location: [facility]
--- NOTE | 2024-12-04 08:08 | ECHOCS_ITS ---
Reason For Study Reason For Study: Dyspnea/SOB Procedure This was a 2D Doppler, Color Flow transthoracic echocardiogram. The study was technically difficult. Contrast injection was performed. Patient scanned supine and on the vent. Exam performed portable in ICU/CCU. Left Ventricle Normal LV size. The left ventricular ejection fraction is 45 %. Stage 1 diastolic dysfunction. Mild to moderate segmental systolic dysfunction (see wall motion). Thorofare : Akinetic. Anterior Thorofare : Severely Hypokinetic. There are regional wall motion abnormalities as specified. Right Ventricle Normal RV size. Normal systolic function. Atria The left and right atria are normal. Normal right atrium. Mitral Valve Normal mitral valve. Tricuspid Valve Normal tricuspid valve. Aortic Valve Trisinus/trileaflet aortic valve. Mild focal aortic valve calcification. Pulmonic Valve Normal pulmonic valve. Great Vessels Normal aortic root. The pulmonary artery is normal size. Inferior vena cava collapse with respiration. Pericardium/Pleural No pericardial effusion. Medication Diluted definity 2ml given slow IV push to enhance endocardial definition. MMode/2D Measurements & Calculations LVIDd: 4.5 cm IVSd: 1.0 cm Ao root diam: 3.6 cm LVIDs: 3.7 cm LVPWd: 0.80 cm RVDd: 3.5 cm FS: 17.9 % LAV(MOD-bp): 39.4 ml LVAd ap4: 35.9 cm2 SV(MOD-sp4): 51.1 ml LAV(MOD-bp) Indexed: 22.6 ml/m2 LVLd ap4: 9.4 cm SI(MOD-sp4): 29.3 ml/m2 LAV(MOD-sp2): 42.9 ml EDV(MOD-sp4): 111.2 ml LAV(MOD-sp4): 35.9 ml EDV(sp4-el): 116.4 ml LVAs ap4: 24.8 cm2 LVLs ap4: 8.4 cm ESV(MOD-sp4): 60.1 ml ESV(sp4-el): 62.5 ml EF(MOD-sp4): 46.0 % EF(sp4-el): 46.3 % SV(sp4-el): 53.8 ml LA A4 area: 14.6 cm2 RA A4 area: 12.2 cm2 TAPSE: 1.7 cm Time Measurements MV dec time: 0.24 sec Doppler Measurements & Calculations MV E max nam: 77.6 cm/sec Lat Peak E' Nam: 7.9 cm/sec Med Peak E' Nam: 6.8 cm/sec MV A max nam: 117.9 cm/sec E/E' lat: 9.9 E/E' med: 11.3 MV E/A: 0.66 MV V2 max: 127.7 cm/sec MV P1/2t max nam: 93.6 cm/sec Ao V2 max: 126.0 cm/sec MV max P.5 mmHg MV P1/2t: 83.9 msec Ao max P.4 mmHg MV V2 mean: 62.8 cm/sec Ao V2 mean: 87.6 cm/sec MV mean P.9 mmHg MV dec slope: 326.8 cm/sec2 Ao mean P.5 mmHg MV V2 VTI: 37.5 cm MVA(P1/2t): 2.6 cm2 Ao V2 VTI: 27.5 cm AV (velocity ratio): 0.89 LV V1 max: 117.2 cm/sec PA V2 max: 101.7 cm/sec LV V1 max P.5 mmHg PA V2 mean: 70.1 cm/sec LV V1 mean P.1 mmHg LV V1 mean: 82.6 cm/sec LV V1 VTI: 24.5 cm ECHO/Echo Complete W/ Contrast Interpretation Summary Normal LV size. The left ventricular ejection fraction is 45 %. Stage 1 diastolic dysfunction. Mild to moderate segmental systolic dysfunction (see wall motion). There are regional wall motion abnormalities as specified. Contrast injection was performed. Ordering Physician: Alexey Rivera Performed By: Harrison Pack RCS
--- NOTE | 2024-12-04 08:24 | PCM.PN.BLA ---
Progress Note Presented to the hospital with abdominal pain and developed acute respiratory failure requiring intubation in the emergency room. She was transferred to the ICU on broad-spectrum antibiotics. [employer] Boat [employer]isher has been consulted. Concern for for UTI as well cultures are pending.
--- NOTE | 2024-12-04 08:49 | EX.PCM.CONCC ---
Assessment & Plan Assessment/Plan (1) Acute respiratory failure: (2) Acute UTI: PLAN: Plan RECOMMENDATIONS: 1. Continue assist-control mode of mechanical ventilation. Wean FiO2 and PEEP to maintain saturations at or above 90%. 2. Advance OG tube as ordered. 3. Continue empiric antimicrobials, pending infectious workup. 4. Continue propofol and fentanyl for sedation. 5. Obtain COVID, influenza and RSV PCR's. 6. Check BNP and obtain echocardiogram. 7. Initiate appropriate ICU prophylaxis. IMPRESSIONS: 1. Sepsis The patient presented with sepsis due to suspected UTI and pneumonia with acute sepsis related organ dysfunction as evidenced by acute respiratory failure requiring invasive mechanical ventilatory support. The patient will be initiated on empiric antimicrobials, while awaiting infectious workup. Given the ground glass noted on CTA chest, will check COVID, influenza and RSV PCR's. 2. Acute respiratory failure with hypoxemia and hypercapnia Most likely related to underlying bilateral pneumonia. However, given the patient's elevated troponin and murmur on examination, will obtain echocardiogram and check BNP. Continue assist-control mode of mechanical ventilation. Wean FiO2 and PEEP as tolerated. As noted above, empiric antimicrobials will be continued. Propofol and fentanyl will be continued for sedation. 3. Encephalopathy Most likely metabolic in nature and related to presenting infectious etiologies. CT head revealed no acute intracranial findings. Will continue supportive care as noted above. 4. History of hypertension/hyperlipidemia/diabetes mellitus/peripheral vascular disease Complicates care, management, recovery and prognosis. Continue supportive measures as noted above. Hold on tube feeding initiation today. Initiate Accu-Cheks and sliding scale insulin coverage. TIME: 38 minutes of critical care time, independent of procedures, was spent addressing the patient's sepsis, acute respiratory failure with hypoxemia and hypercapnia, encephalopathy, review of all data and collaboration with the care team. HPI Consult Data Date of Consult: 12/04/24 HPI Narrative Reason for Consultation: Respiratory failure HPI Narrative: The patient is a 64-year-old female, with a history as outlined below, who presented to the emergency department initially with complaints of abdominal pain and dysuria. History pertinent to her hospitalization was obtained primarily via chart review, as the patient is currently intubated and mechanically ventilated. She does have a documented medical history that includes osteomyelitis of the right foot, hypertension, hyperlipidemia, peripheral arterial disease and diabetes mellitus. On presentation to the emergency department, the patient was initially documented to have a temperature of 96.7 ?F. She was otherwise hemodynamically stable on room air. Laboratory evaluation revealed a normal white blood cell count with a hemoglobin of 9.6 g/dL and platelet count of 253,000. Chemistry profile was notable for a creatinine of 1.5. Lactate was normal. Troponin was elevated at 166. Urine analysis was positive for nitrites, leukocyte esterase and 2+ urine bacteria. According to ED documentation, upon ambulating to the bathroom, the patient developed diaphoresis, lightheadedness and urinary incontinence. She then went on to develop diaphoresis and became unresponsive. The decision, at that time, was made to proceed with emergent intubation. The initial ABG was notable for a pH of 7.16 with a pCO2 of [address] pO2 of 116. CT abdomen/pelvis demonstrated multifocal ground glass opacities with airspace consolidations along with diffuse thickening of the stomach suggestive of gastritis. There was a complex lesion noted in the upper pole of the left kidney, suspicious for neoplasm. CT head revealed no intracranial pathology. CTA chest showed no evidence for pulmonary embolism, but again confirmed bilateral ground glass opacities and consolidation, concerning for pneumonia. The patient was subsequently admitted to the medical intensive care unit for further management. This morning, the patient is clinically stable on assist-control mode of mechanical ventilation with an FiO2 requirement of 30% and PEEP of 5. She is currently sedated on propofol and fentanyl. [facility] Medical History Wears glasses Post-menopausal Alcohol use Depression History of steroid therapy Arthritis Uses wheelchair Bladder disease Low iron Stroke/cerebrovascular accident Dietary restriction History of renal disease Chronic cough Smoker Shortness of breath on exertion History of pain when walking DM type 2 (diabetes mellitus, type 2) Amputation of one or more toes Peripheral arterial disease Gas gangrene Osteomyelitis Hyperlipidemia Home Medications ?Medication ?Instructions ?Recorded ?Last Taken ?Type aspirin 81 mg chewable tablet 81 mg PO DAILY@0800 Blood thinner 12/27/15 01/07/22 History ferrous sulfate 325 mg (65 mg 325 mg PO DAILY 01/01/22 Unknown History iron) tablet hydrocodone-acetaminophen 5-325mg 1 tab PO Q6H 3 days #12 tabs 01/08/22 Unknown Rx 5mg-325mg atorvastatin 40 mg tablet 40 mg PO QHS 12/03/24 Unknown History bupropion HCl 150 mg 24 hr tablet, 150 mg PO DAILY 12/03/24 Unknown History extended release cephalexin 500 mg capsule 500 mg PO Q12 #14 CAPSULES 12/03/24 Unknown Rx ezetimibe 10 mg tablet 10 mg PO DAILY 12/03/24 Unknown History glipizide 2.5 mg tablet, extended 2.5 mg PO DAILY 12/03/24 Unknown History release 24 hr metformin 1,000 mg tablet 1,000 mg PO BID 12/03/24 Unknown History pioglitazone 30 mg tablet 30 mg PO DAILY 12/03/24 Unknown History Allergy/AdvReac Type Severity Reaction Status Date / Time latex Allergy Rash Verified 12/03/24 19:26 Surgical History Hx of eye surgery Hx of left cataract extraction Social History household members: none Smoking Status: Current every day smoker tobacco type: cigarettes substance use type: does not use ROS Review of Systems ROS Unobtainable: due to endotracheal tube Physical Exam Const Constitutional Narrative: Intubated, sedated and mechanically ventilated. No ventilator dyssynchrony noted. HEENT normocephalic and head/scalp atraumatic Mouth: endotracheal tube in place and OG tube in place Eyes PERRL, EOMs intact bilaterally and conjunctivae normal Neck supple General: trachea midline Chest inspection of chest normal Resp normal respiratory effort Auscultation: rales and diminished lung sounds Cardio regular rate and regular rhythm Heart Sounds: murmur GI normal to inspection, nondistended, normoactive bowel sounds Extremity General Extremity: Negative for clubbing or edema Skin Skin Narrative: Right foot is currently wrapped. Neuro Sensorium / Orientation: sedated on vent Lab / Micro Data 12/04/24 04:36 12/04/24 03:15 Labs: Laboratory Results - last 24 hr 12/03/24 20:55: WBC 5.9, RBC 3.47 L, Hgb 9.6 L, Hct 30.6 L, MCV 88.2, MCH 27.7, MCHC 31.4 L, RDW Std Deviation 45.1 H, RDW Coeff of Nuno 14.1, Plt Count 253, MPV 9.4, Immature Gran % (Auto) 0.700, Neut % (Auto) 69.6, Lymph % (Auto) 16.7 L, [place] % (Auto) 6.8, Eos % (Auto) 5.7 H, Baso % (Auto) 0.5, Absolute Neuts (auto) 4.1, Absolute Lymphs (auto) 0.99, Nucleated RBC % 0, Sodium 138, Potassium 3.9, Chloride 104, Carbon Dioxide 23.1, Anion Gap 11, BUN 25 H, Creatinine 1.53 H, Estim Creat Clear Calc 34.26 L, Est GFR (MDRD) Non-Af 37 L, BUN/Creatinine Ratio 16.6, Glucose 211 H, Calcium 9.0, Total Bilirubin 0.29, AST 17, ALT 11, Alkaline Phosphatase 120 H, Total Creatine Kinase 39, Troponin T High Sens 20 H, Total Protein 7.2, Albumin 3.9, Globulin 3.3, Albumin/Globulin Ratio 1.2, Triglycerides 64, Lipase 41 12/03/24 20:57: Urine Color Straw, Urine Clarity Cloudy, Urine pH 6.0, Ur Specific [place] 1.010, Urine Protein 100 H, Urine Glucose (UA) 100 H, Urine Ketones Negative, Urine Occult Blood 150 H, Urine Nitrite Positive H, Urine Bilirubin Negative, Urine Urobilinogen Normal, Ur Leukocyte Esterase 500 H, Urine RBC 5-10 SEEN, Urine WBC 50-100 SEEN, Ur Squamous Epith Cells 0-5 SEEN, Urine Bacteria 2+, Urine Mucus 0 SEEN 12/03/24 22:08: POC Glucose 169 H 12/03/24 23:47: Troponin T Hi Sens 2 Hr 36 H 12/04/24 00:03: WBC 10.3, RBC 3.34 L, Hgb 9.5 L, Hct 29.2 L, MCV 87.4, MCH 28.4, MCHC 32.5, RDW Std Deviation 44.6 H, RDW Coeff of [place] 13.9, Plt Count 254, MPV 9.9, Immature Gran % (Auto) 0.500, Neut % (Auto) 87.1 H, Lymph % (Auto) 6.4 L, [place] % (Auto) 3.3, Eos % (Auto) 2.4, Baso % (Auto) 0.3, Absolute Neuts (auto) 9.0 H, Absolute Lymphs (auto) 0.66 L, Nucleated RBC % 0, Lactic Acid 1.8 12/04/24 03:15: Sodium 142, Potassium 3.9, Chloride 108, Carbon Dioxide 21.2, Anion Gap 13, BUN 24 H, Creatinine 1.39 H, Estim Creat Clear Calc 37.76 L, Est GFR (MDRD) Non-Af 42 L, BUN/Creatinine Ratio 17.0, Glucose 185 H, Calcium 8.2, Troponin T Hi Sens 4Hr 166 H* 12/04/24 04:36: WBC 10.4, RBC 3.29 L, Hgb 9.2 L, Hct 28.3 L, MCV 86.0, MCH 28.0, MCHC 32.5, RDW Std Deviation 43.9, RDW Coeff of Nuno 14.0, Plt Count 240, MPV 9.5, Immature Gran % (Auto) 0.400, Neut % (Auto) 85.4 H, Lymph % (Auto) 7.7 L, [place] % (Auto) 4.9, Eos % (Auto) 1.4, Baso % (Auto) 0.2, Absolute Neuts (auto) 8.8 H, Absolute Lymphs (auto) 0.80 L, Nucleated RBC % 0 12/04/24 05:49: POC Glucose 145 H ABG Data ABG results: ABG 12/03/24 12/04/24 12/04/24 23:08 00:21 02:46 Specimen Type ART ART ART Sample Site R Radial R Radial L Radial pH 7.16 L* 7.35 7.41 Bicarbonate Actual 22.2 25.0 24.8 Total CO2 24 26 26 Base Excess -7 L -1 0 O2 Saturation 97 92 L 96 O2 % 60.0 30.0 40.0 ABG pCO2 62.4 H 45.8 H 39.6 ABG pO2 116 H 66 L 81 Aftab Test Positive Positive Positive Respiration Rate 16 16 18 O2 Delivery Device Adult Vent Adult Vent Adult Vent Vent Mode AC AC AC Tidal Volume 400.0 450.0 420.0 POC PEEP 5 5 5 Crit Call To/Read Back Yes Blood Gas Notified Whom Dr. Asher Blood Gas Notified Time 23:11:14 Clinical Comments ACVC+ Imaging Radiology Impression Abdomen/Pelvis CT 12/03/24 22:11 IMPRESSION: Bilateral multifocal ground-glass density/airspace consolidations more prominent in the lower lobes, probably multifocal pneumonia. Interval appearance of minimal right pleural effusion. The tip of the enteric feeding tube is at the level of the gastroesophageal junction. It needs to be advanced 4 cm. Diffuse thickening of the stomach suggestive of gastritis. Heterogeneous nephrogram of the left kidney, possibly acute pyelonephritis without obstructing stone or drainable abscess. Complex lesion is noted in the upper pole of the left kidney measuring 5.3 x 4.9 cm, suspicious for neoplasm, not present on the prior exam. Interval appearance of left perinephric enlarged lymph nodes with the largest measuring 2.2 cm. Robles catheter balloon is seen in the bladder. Diffuse thickening of the bladder, probably cystitis. Moderate amount of fecal residue in the large bowels, probably constipation with associated minimal stercoral colitis. Diffuse thickening of the stomach suggestive of gastritis. Reading Location: [place] [id number] 12/03/24 22:11 IMPRESSION: No evidence of acute intracranial pathology. Reading Location: [id number] Chest CTA 12/03/24 22:34 IMPRESSION: No demonstrated pulmonary embolism or arterial dissection. The endotracheal tube is just above the right main bronchus. It needs to be retrieved 2 cm. Enteric feeding tube is at the level of the gastroesophageal junction. It needs to be advanced 4 cm. Mild cardiomegaly. Moderate coronary artery calcifications. Multinodular thyroid goiter without tracheal narrowing or deviation. The largest nodule measures 1.3 cm. Mild cardiomegaly. Mild right pleural effusion. Passive atelectatic airspace disease of the right lower lobe. Mild osteopenia. Moderate diffuse spondylosis. Increased dorsal kyphosis. Mildly enlarged mediastinal lymph nodes with the largest measuring 1.3 cm. Bilateral widespread ground-glass densities in the upper lobes, right middle lobe, lingula and bilateral lower lobes, probably multifocal pneumonia. 3 mm left renal nonobstructing stone. Heterogeneous nephrogram with possible complex left renal upper pole mass. Reading Location: [place] [address] Chest X-Ray 12/04/24 05:00 IMPRESSION: Tubes and lines in position. Central vascularity appears mildly increased. There is consolidation in the right perihilar and midlung. Reading Location: [facility] Charges/Coding Procedures Hospitalists Procedures: 42638 Critical Care 1st Hr
[2024-12-04] MEDS: Pantoprazole Sodium 40 MG in 0.9% Normal Saline (100mL MB+) 100 ML 300 MG IV (08:55)
[2024-12-04] MEDS: Chlorhexidine 15 ML PO ×2 (09:00→22:36)
[2024-12-04] MEDS: Azithromycin 500 MG in 0.9% Normal Saline (250mL Bag) 250 ML 250 MG IV (09:01)
[2024-12-04] MEDS: 0.9% Saline Lock 10 ML Syringe IV ×2 (09:01→18:59)
[2024-12-04 09:22] LABS: Pro- Brain NATRIURETIC PEPTIDE 3192 pg/mL (<=900); Procalcitonin 0.06 ng/mL (<=0.10)
--- NOTE | 2024-12-04 09:33 | WOUNDNOTE ---
This nurse was asked to see patient for foot wound. nursing states there had been an JOSE wrap on the right foot. no dressing or JOSE wrap in place at this time. patient had a previous right TMA. there is a tiny scab noted to the right foot. no other foot wounds noted at this time. heels intact. pt is currently intubated. no need for wound care at this time. nursing aware to notify if other issues arise.
[2024-12-04] MEDS: Norepinephrine 8 MG in 0.9% Normal Saline (250mL Bag) 242 ML 9.4 MG CONT INF (10:03)
[2024-12-04] MEDS: CHLORHEXIDINE GLUC 2% CLOTH 1 EACH TOWELETTE TOPICAL (10:07)
--- NOTE | 2024-12-04 10:36 | CASEMGMT ---
JOSSELYN CM Assessment Pt is currently sedated and intubated. There is not family at bedside. TC to pt's NOK on file. Daughter, Rosetta, answers the phone and states that she is agreeable to answering this RN CM's questions for assessment. Care providers, pharmacy, and demographics verified. Admitting dx:Acute RF, UTI LACE Strata: 2 PCP: Christiano Ramirez Specialists: Brendan (Podiatry), Eye doctor out of [place] (Unable to recall name) Preferred Pharmacy: [facility] Insurance: [facility] Prescription Benefit: Yes LNOK: Rosetta (Daughter) Living Arrangements: Pt lives with her daughter and 4 grandchildren (Ages 17, 15, 13, and 12) in a 2 story home with 1 step to enter ADLs/IADLs: Daughter states that the pt is indep at baseline but that family supports her when she is not feeling well Transportation: Pt does not drive. Pt's daughter drives DME: CPAP @ [facility] with no additional oxygen. BGM with supplies. Daughter believes the pt may be low on testing strips but states that they can get refills at [facility]. Daughter reports the pt has a pulse ox, walk-in shower with shower chair and grab bars, x2 WC, FWW, Knee brace, and Cane. Daughter states that the pt has a hx of amputation of her rt toes and that they have dressing supplies for that. See wound RN note. HHC/SNF: Denies HH history. History at [facility]. Pt?s goal: TBD Plan: TBD. Today is VD#2. CM to follow for any additional DC needs. Pt's daughter denies any further questions or concerns at this time. Peter Joyner RN, CM
[2024-12-04] MEDS: fentaNYL drip 100 ML 12.5 MCG CONT INF (11:00)
--- NOTE | 2024-12-04 12:25 | WOUNDNOTE ---
skin photo: right foot
[2024-12-04] MEDS: Propofol 10MG/Ml 1,000 MG/100 ML Bottle 6.4 MG CONT INF (12:53)
[2024-12-04] MEDS: fentaNYL drip 100 ML 10 MCG CONT INF (19:00)
[2024-12-04] MEDS: Propofol 10MG/Ml 1,000 MG/100 ML Bottle 8.6 MG CONT INF (20:08)
--- NOTE | 2024-12-04 20:30 | RAD_ITS ---
PROCEDURE: ABDOMEN SINGLE VIEW 12/04/2024 REASON FOR EXAM: OGT PLACEMENT TECHNIQUE: Procedure Code: RADABD Modality: DX Procedure: ABDOMEN SINGLE VIEW COMPARISON: Earlier same day 12/04/2024 FINDINGS: Distal tip of the enteric tube terminates in the epigastric region with side port at the level of the distal esophagus, advancement is recommended. Patchy airspace consolidation in the right mid lung zone again noted. No basilar pleural effusions. Visualized bowel gas pattern is nonobstructive. No discernible free air. RAD/Abdomen Single View IMPRESSION: Enteric side port in the lower esophagus, recommend advancement by 9-10 cm. Reading Location: [id number]
[2024-12-05] VITALS (61 sets, daily range): BP systolic 81–180; BP diastolic 38–76; PULSE 55–102; RESP 18–28; TEMP 37.2–38.1; O2SAT 92–100; BMI 28.3
[2024-12-05] MEDS: Propofol 10MG/Ml 1,000 MG/100 ML Bottle 10.7 MG CONT INF (02:33)
[2024-12-05] MEDS: fentaNYL drip 100 ML 10 MCG CONT INF ×3 (03:38→23:56)
[2024-12-05] MEDS: CHLORHEXIDINE GLUC 2% CLOTH 1 EACH TOWELETTE TOPICAL (03:39)
[2024-12-05 04:26] LABS: Hematocrit 26.4 % (37-47); Hemoglobin 8.5 g/dL (12.0-15.0); Immature Granulocytes Count 0.050 X10^3/uL (0.0-0.0); Mean Corp Hgb Conc 32.2 g/dL (32-36); Mean Corpuscular Volume 86.0 fL (81-99); Mean Platelet Vol. 10.4 fl (6.2-12.0); NRBC Flagged by Analyzer 0 % (0-5); Platelet Count 273 K/mm3 (150-450); RBC Distribution Width CV 14.6 % (11.6-14.6); RBC Distribution Width SD 45.0 fl (35.1-43.9); Red Blood Count 3.07 M/mm3 (4.2-5.4); White Blood Count 10.2 K/mm3 (4.4-11.0)
[2024-12-05 04:38] LABS: Anion Gap 13 (5-15); BUN 25 mg/dL (4-19); BUN/Creat Ratio 16.0 RATIO (10-20); Calcium,Total 8.6 mg/dL (7.6-11.0); Carbon Dioxide 18.4 mmol/L (21.0-32.0); Chloride 110 mmol/L (98-108); Estimated Creatinine Clearance 34.51 ml/min (50-250); Glucose 108 mg/dL (70-99); Potassium 3.6 mmol/L (3.3-5.1)
[2024-12-05] MEDS: TITRATION PARAMETER CHANGE 1 EACH IV (06:18)
--- NOTE | 2024-12-05 07:12 | PCM.PN.HOSP ---
Reason for Visit Chief Complaint: Acute respiratory failure, UTI Subjective Subjective Patient is a 64-year-old female who presented to the emergency department with abdominal pain with associated dysuria. She apparently developed dyspnea diaphoresis and became unresponsive. Imaging intubation was done. Subsequent CT demonstrated Bilateral multifocal ground-glass density/airspace consolidations more prominent in the lower lobes, probably multifocal pneumonia. Admitted to the intensive care unit for subsequent management Objective Data Objective Data Vital Signs: Vital Signs Temp Pulse Resp BP Pulse Ox O2 Del Method FiO2 99.6 F H 57 L 18 110/46 L 99 Mechanical Ventilator 21 12/05/24 07:00 12/05/24 07:02 12/05/24 07:02 12/05/24 07:00 12/05/24 07:02 12/05/24 07:00 12/05/24 07:00 Oxygen Delivery Method Mechanical Ventilator Weight: 72.5 kg Body Mass Index (BMI) 28.3 Intake & Output: Intake and Output for Last 24 Hours 12/03/24 12/04/24 12/05/24 23:59 23:59 23:59 Intake Total 667 / 667 2387.60 / 2409.25 197.16 / 197.16 Output Total 1275 / 1275 200 / 200 Balance 667 / 667 1112.60 / 1134.25 -2.84 / -2.84 Lab / Micro Data 12/05/24 03:55 12/05/24 03:55 Labs: Laboratory Results - last 24 hr 12/04/24 03:15: NT pro BNP II 3192 H, Procalcitonin 0.06 12/04/24 11:10: POC Glucose 125 H 12/04/24 17:22: POC Glucose 100 12/05/24 00:09: POC Glucose 99 12/05/24 03:55: WBC 10.2, RBC 3.07 L, Hgb 8.5 L, Hct 26.4 L, MCV 86.0, MCH 27.7, MCHC 32.2, RDW Std Deviation 45.0 H, RDW Coeff of Nuno 14.6, Plt Count 273, MPV 10.4, Immature Gran % (Auto) 0.500, Neut % (Auto) 75.3 H, Lymph % (Auto) 13.2 L, [place] % (Auto) 6.0, Eos % (Auto) 4.6, Baso % (Auto) 0.4, Absolute Neuts (auto) 7.7, Absolute Lymphs (auto) 1.34, Nucleated RBC % 0, Sodium 141, Potassium 3.6, Chloride 110 H, Carbon Dioxide 18.4 L, Anion Gap 13, BUN 25 H, Creatinine 1.53 H, Estim Creat Clear Calc 34.51 L, Est GFR (MDRD) Non-Af 37 L, BUN/Creatinine Ratio 16.0, Glucose 108 H, Calcium 8.6 12/05/24 05:22: POC Glucose 89 Micro: Microbiology 12/03/24 22:45 Sputum, Tracheal Aspirate Gram Stain - Final 12/04/24 09:43 Mucosa - Nasopharyngeal SARS-CoV-2, Influenza & RSV (PCR) - Final Radiography Diagnostic Testing: Radiology Impression Chest X-Ray 12/04/24 05:00 IMPRESSION: Tubes and lines in position. Central vascularity appears mildly increased. There is consolidation in the right perihilar and midlung. [facility] Ech[facility] 12/04/24 08:08 Interpretation Summary Normal LV size. The left ventricular ejection fraction is 45 %. Stage 1 diastolic dysfunction. Mild to moderate segmental systolic dysfunction (see wall motion). There are regional wall motion abnormalities as specified. Contrast injection was performed. Ordering Physician: Alexey Rivera Performed By: Harrison Pack RCS X-Ray 12/04/24 20:30 IMPRESSION: Enteric side port in the lower esophagus, recommend advancement by 9-10 cm. Reading Location: [facility] Physical Exam Narrative GENERAL: Awake on the vent HEENT: Atraumatic; normocephalic ET tube in place EYES; Anicteric, Normal Conjunctiva NECK; supple, normal thyroid, RESPIRATORY: Diminished to auscultation CARDIOVASCULAR: Regular S1 S2, GI: soft, normoactive bowel sounds, : No Renal angle tenderness; EXTREMITIES: No edema, no clubbing, MUSCULOSKELETAL: no muscle wasting NEURO: Awake; no lateralizing signs. SKIN: No Rash PSYCH; Flat affect Assessment & Plan Assessment/Plan (1) Acute UTI: (2) DM type 2 (diabetes mellitus, type 2): (3) Hypertension: (4) Hyperlipidemia: (5) Acute respiratory failure: PLAN: Plan Patient is a 64-year-old female who presented to the emergency department with abdominal pain with associated dysuria. She apparently developed dyspnea diaphoresis and became unresponsive. Imaging intubation was done. Subsequent CT demonstrated Bilateral multifocal ground-glass density/airspace consolidations more prominent in the lower lobes, probably multifocal pneumonia. Admitted to the intensive care unit for subsequent management 1. Acute hypoxic and hypercapnic respiratory failure ? Patient underwent emergency intubation in the ED subsequently admitted to the intensive care unit. Vent management deferred to lance crewmember/mlrs sergeant/pulmonary medicine 2. Multifocal pneumonia with suspected gram-positive organisms ? Patient managed with broad-spectrum antibiotic therapy in addition to being intubated for ventilatory support 3. Acute pyelonephritis ? Imaging studies obtained on admission heterogeneous nephrogram of the left kidney, possibly acute pyelonephritis without obstructing stone or drainable abscess.. Blood and urine cultures sent on admission results still pending 4. Septic shock ? Secondary to combination of pneumonia and UTI. Patient was managed per protocol with IV fluid resuscitation broad-spectrum antibiotic therapy after cultures have been sent. Patient remains on pressors with Levophed 5. Anemia ? Secondary to chronic disorder monitoring H&H and transfuse if patient becomes symptomatic or hemoglobin falls below 7 6. Acute kidney injury ? Patient baseline creatinine from 12/23/2021 was 1.02 creatinine on admission was 1.53. Patient currently on IV fluids as well as pressor support with daily monitoring of BMPs. Consult was placed to nephrology 7. Dyslipidemia ? Patient is on atorvastatin plan is to resume once patient is weaned off the vent 8. Diabetes mellitus type 2 ? Patient is on glipizide and metformin as well as Actos held placed on Accu-Cheks with sliding scale coverage 9. Essential hypertension ? Patient antihypertensives on hold given her low blood pressure 10. Gastritis ? Patient placed on PPI 11. Renal mass Imaging studies did show complex lesion is noted in the upper pole of the left kidney measuring 5.3 x 4.9 cm, suspicious for neoplasm, not present on the prior exam. Plan is for patient to undergo further evaluation once weaned off the vent. 12. Constipation ? CT of the abdomen did show Moderate amount of fecal residue in the large bowels, probably constipation with associated minimal stercoral colitis. This probably explained patient abdominal pain on presentation plan is to treat symptomatically 13. DVT prophylaxis ? Low molecular weight Time spent in the patient's overall evaluation,decision-making process, review of diagnostic data, adjustment of management, discussion with other providers, nursing nursing and ancillary staff involved in patient's care documentation, 55 Minutes Charges/Coding Visit Charges Inpatient E&M: 17541 [facility] [place] [facility] L[facility]
--- NOTE | 2024-12-05 07:39 | PCM.PN.INT ---
Assessment & Plan Assessment/Plan (1) Acute respiratory failure: (2) Acute UTI: PLAN: Plan RECOMMENDATIONS: 1. Continue assist-control mode of mechanical ventilation. Wean FiO2 and PEEP to maintain saturations at or above 90%. 2. Replace OG tube today. 3. Continue empiric antimicrobials, pending infectious workup. 4. Continue propofol and fentanyl for sedation. 5. Initiate gentle diuresis as tolerated by hemodynamics and renal function. 6. Continue appropriate ICU prophylaxis. IMPRESSIONS: 1. Sepsis The patient presented with sepsis due to suspected UTI and pneumonia with acute sepsis related organ dysfunction as evidenced by acute respiratory failure requiring invasive mechanical ventilatory support. The patient will be continued on empiric antimicrobials, while awaiting infectious workup. 2. Acute respiratory failure with hypoxemia and hypercapnia Most likely related to underlying bilateral pneumonia, coupled with a component of CHF. The patient was noted to have a depressed ejection fraction of 45% on echocardiogram. The patient will be continued on empiric antimicrobials, while awaiting infectious workup. Will administer IV Lasix today. The patient will be continued on assist-control mode of mechanical ventilation, with a goal to wean FiO2 and PEEP to maintain saturations at or above 90%. Plan to repeat spontaneous awakening and breathing trial tomorrow morning. 3. Encephalopathy Most likely metabolic in nature and related to presenting infectious etiologies. CT head revealed no acute intracranial findings. Will continue supportive care as noted above. 4. History of hypertension/hyperlipidemia/diabetes mellitus/peripheral vascular disease Complicates care, management, recovery and prognosis. Continue supportive measures as noted above. Continue Accu-Cheks and sliding scale insulin coverage. TIME: 34 minutes of critical care time, independent of procedures, was spent addressing the patient's sepsis, acute respiratory failure with hypoxemia and hypercapnia, encephalopathy, review of all data and collaboration with the care team. Subjective Subjective The patient was seen and examined at the bedside this morning. Events from the last 24 hours have been reviewed. The patient currently has a low-grade fever but remains otherwise hemodynamically stable on assist-control mode of mechanical ventilation with an FiO2 requirement of 30% and PEEP of 5. Although the patient was placed on a spontaneous breathing trial this morning, her tidal volumes were suboptimal. Therefore, the SBT was terminated. She is currently documented to be overall net +1.7 L for the hospitalization. White blood cell count is normal. Hemoglobin and platelet count are stable. Creatinine is stable at 1.5. Objective Data Objective Data The patient's most recent lab work, culture data and imaging studies have all been personally reviewed. Surface echocardiogram demonstrated an ejection fraction of 45% with stage I diastolic dysfunction. Blood, urine and sputum cultures are pending. Vital Signs: Vital Signs Temp Pulse Resp BP Pulse Ox O2 Del Method FiO2 99.6 F H 57 L 24 H 110/46 L 99 Mechanical Ventilator 21 12/05/24 07:00 12/05/24 07:02 12/05/24 07:15 12/05/24 07:00 12/05/24 07:02 12/05/24 07:00 12/05/24 07:00 Oxygen Delivery Method Mechanical Ventilator Weight: 159 lb 13.362 oz Body Mass Index (BMI) 28.3 Intake & Output: Intake and Output for Last 24 Hours 12/03/24 12/04/24 12/05/24 23:59 23:59 23:59 Intake Total 667 / 667 2387.60 / 2409.25 197.16 / 197.16 Output Total 1275 / 1275 200 / 200 Balance 667 / 667 1112.60 / 1134.25 -2.84 / -2.84 Lab / Micro Data Attestation: I reviewed the patient's lab results. 12/05/24 03:55 12/05/24 03:55 Labs: Laboratory Results - last 24 hr 12/04/24 03:15: NT pro BNP II 3192 H, Procalcitonin 0.06 12/04/24 11:10: POC Glucose 125 H 12/04/24 17:22: POC Glucose 100 12/05/24 00:09: POC Glucose 99 12/05/24 03:55: WBC 10.2, RBC 3.07 L, Hgb 8.5 L, Hct 26.4 L, MCV 86.0, MCH 27.7, MCHC 32.2, RDW Std Deviation 45.0 H, RDW Coeff of Nuno 14.6, Plt Count 273, MPV 10.4, Immature Gran % (Auto) 0.500, Neut % (Auto) 75.3 H, Lymph % (Auto) 13.2 L, Craig % (Auto) 6.0, Eos % (Auto) 4.6, Baso % (Auto) 0.4, Absolute Neuts (auto) 7.7, Absolute Lymphs (auto) 1.34, Nucleated RBC % 0, Sodium 141, Potassium 3.6, Chloride 110 H, Carbon Dioxide 18.4 L, Anion Gap 13, BUN 25 H, Creatinine 1.53 H, Estim Creat Clear Calc 34.51 L, Est GFR (MDRD) Non-Af 37 L, BUN/Creatinine Ratio 16.0, Glucose 108 H, Calcium 8.6 12/05/24 05:22: POC Glucose 89 Micro: Microbiology 12/03/24 22:45 Sputum, Tracheal Aspirate Gram Stain - Final 12/04/24 09:43 Mucosa - Nasopharyngeal SARS-CoV-2, Influenza & RSV (PCR) - Final Radiography Diagnostic Testing: Radiology Impression Chest X-Ray 12/04/24 05:00 IMPRESSION: Tubes and lines in position. Central vascularity appears mildly increased. There is consolidation in the right perihilar and midlung. Reading [facility] Echocardiogram 12/04/24 08:08 Interpretation Summary Normal LV size. The left ventricular ejection fraction is 45 %. Stage 1 diastolic dysfunction. Mild to moderate segmental systolic dysfunction (see wall motion). There are regional wall motion abnormalities as specified. Contrast injection was performed. Ordering Physician: Alexey Rivera Performed By: Harrison Pack RCS X-Ray 12/04/24 20:30 IMPRESSION: Enteric side port in the lower esophagus, recommend advancement by 9-10 cm. Reading Location: [facility] Physical Exam Const Constitutional Narrative: Intubated, sedated and mechanically ventilated. No ventilator dyssynchrony noted. HEENT normocephalic and head/scalp atraumatic Mouth: endotracheal tube in place Eyes PERRL, EOMs intact bilaterally and conjunctivae normal Neck supple General: trachea midline Chest inspection of chest normal Resp normal respiratory effort Auscultation: rales and diminished lung sounds Cardio regular rate and regular rhythm Heart Sounds: murmur GI normal to inspection, nondistended, normoactive bowel sounds Extremity General Extremity: Negative for clubbing or edema Skin Skin Narrative: Right foot is currently wrapped. Neuro Sensorium / Orientation: sedated on vent Charges/Coding Procedures Hospitalists Procedures: [id number] Critical Care 1st Hr
[2024-12-05 08:18] LABS: Immature Reticulocyte Fraction 18.30 % (3.00-15.90); Platelet Count 285 K/mm3 (150-450); Reticulocyte Count 1.93 % (0.5-1.5)
[2024-12-05 08:31] LABS: Ferritin 143 ng/mL (22-378); Iron 9 ug/dL (50-170); Iron Binding Capacity,Unsat 183 ug/dL (228-428); Vitamin B12 230 pg/mL (180-914)
[2024-12-05 08:41] LABS: Iron Binding Capacity,Total 192 ug/dL (250-450)
[2024-12-05] MEDS: Pantoprazole Sodium 40 MG in 0.9% Normal Saline (100mL MB+) 100 ML 330 MG IV (09:38)
[2024-12-05] MEDS: Azithromycin 500 MG in 0.9% Normal Saline (250mL Bag) 250 ML 250 MG IV (09:43)
[2024-12-05] MEDS: Chlorhexidine 15 ML PO ×2 (09:43→19:47)
--- NOTE | 2024-12-05 10:10 | RAD_ITS ---
PROCEDURE: CHEST 1 VIEW (PORTABLE) 12/05/2024 REASON FOR EXAM: Respiratory failure TECHNIQUE: Frontal view of the chest. COMPARISON: 12/04/2024 FINDINGS: Stable appearance of the ET tube is just above the hina and should be retracted at least 2 cm. NG tube tip in the proximal stomach and should be advanced. A right-sided PICC line has been placed since the previous study, tip is in the distal SVC. Lungs are expanded with overall improvement compared to the previous study, decreased airspace opacifications in both lung simeon. Continued follow-up recommended to ensure complete resolution. Bony structures show degenerative change RAD/Chest 1 View (Portable) IMPRESSION: ETT tip is just above the hina and should be retracted 2-3 cm NG tube tip in the proximal stomach should be advanced Satisfactory positioning of the right-sided PICC line Decreased airspace opacifications in both lung simeon compared to the previous study, follow-up recommended to ensure complete resolution Reading Location: [id number]
--- NOTE | 2024-12-05 10:46 | CON.PCM.RE_ITS ---
Assessment & Plan Assessment/Plan (1) ANTONIO (acute kidney injury): PLAN: History of diabetes, reviewed lab data from outpatient epic. HbA1c was fairly high up until 2 years ago, over the last 1 year, HbA1c values have come down to about 7.2-7.3. Likely has some diabetic nephropathy. Baseline creatinine appears to be around 1.2 and so she has CKD stage IIIa. ANTONIO is likely due to ongoing events, ATN. Nonoliguric, indwelling Varner catheter with decent urine output. No hyperkalemia or severe acidosis at this time. Continue supportive therapy. CT abdomen revealed a 5.3 cm heterogeneous mass. There is some lymphadenopathy as well. There is pyelonephritis changes on the other side, on coverage with antibiotics as per primary. When she is clinically stable, will likely need a dedicated renal mass protocol MRI. Discussed with daughter at bedside. HPI Consult Data Date of Consult: 12/05/24 HPI Narrative Reason for Consultation: ANTONIO HPI Narrative: ROSALINO LEVY, is a 64 F who presents to the hospital with flank pain, fevers. Nephrology on consultation in view of acute renal failure. Primary care physician is Dr. Ramirez at [facility] it appears. Nephrology on consultation in view of acute renal failure. She is currently intubated, most of the history is obtained from the charts and speaking to the daughter at bedside. Apparently she did complain of right-sided flank pain prior to coming in. Ongoing events include respiratory failure, currently intubated, imaging consistent with bilateral lower lobe infiltrative changes, pneumonia. Urine analysis consistent with infection, CT abdomen showed possible pyelofinding, a 5.3 cm heterogeneous mass in the left kidney, lymphadenopathy. As far as the daughter knows, there is no history of any kidney mass. She has not had any abdominal imaging in the last 1 year. I reviewed her epic from [facility] and there is no imaging study in the last 1 year. [facility] Medical History Wears glasses Post-menopausal Alcohol use Depression History of steroid therapy Arthritis Uses wheelchair Bladder disease Low iron Stroke/cerebrovascular accident Dietary restriction History of renal disease Chronic cough Smoker Shortness of breath on exertion History of pain when walking DM type 2 (diabetes mellitus, type 2) Amputation of one or more toes Peripheral arterial disease Gas gangrene Osteomyelitis Hyperlipidemia Home Medications ?Medication ?Instructions ?Recorded ?Last Taken ?Type aspirin 81 mg chewable tablet 81 mg PO DAILY@0800 Bloo d thinner 12/27/15 01/07/22 History ferrous sulfate 325 mg (65 mg 325 mg PO DAILY 01/01/22 Unknown History iron) tablet hydrocodone-acetaminophen 5-325mg 1 tab PO Q6H 3 days #12 tabs 01/08/22 Unknown Rx 5mg-325mg atorvastatin 40 mg tablet 40 mg PO QHS 12/03/24 Unknow n History bupropion HCl 150 mg 24 hr tablet, 150 mg PO DAILY Unknown History extended release cephalexin 500 mg capsule 500 mg PO Q12 #14 CAPSULES 0 12/03/24 Unknown Rx ezetimibe 10 mg tablet 10 mg PO DAILY 12/03/24 Unkn own History glipizide 2.5 mg tablet, extended 2.5 mg PO DAILY 11/06 11/29 Unknown History release 24 hr metformin 1,000 mg tablet 1,000 mg PO BID 12/03/24 Unk nown History pioglitazone 30 mg tablet 30 mg PO DAILY 12/03/24 Unkn own History Allergy/AdvReac Type Severity Reaction Status Date / Time latex Allergy Rash Verified 12/03/24 19:26 Surgical History Hx of eye surgery Hx of left cataract extraction Social History household members: none Smoking Status: Current every day smoker tobacco type: cigarettes substance use type: does not use ROS ROS Narrative Unable to obtain review of systems Physical Exam Narrative no pallor no icterus no JVD s1s2 no murmurs abdomen soft no organomegaly no edema no cyanosis varner + Lab / Micro Data 12/05/24 03:55 12/05/24 03:55 Labs: Laboratory Results - last 24 hr 12/04/24 11:10: POC Glucose 125 H 12/04/24 17:22: POC Glucose 100 12/05/24 00:09: POC Glucose 99 12/05/24 03:55: WBC 10.2, RBC 3.07 L, Hgb 8.5 L, Hct 26.4 L, MCV 86.0, MCH 27.7, MCHC 32.2, RDW Std Deviation 45.0 H, RDW Coeff of Nuno 14.6, Plt Count 273, MPV 10.4, Immature Gran % (Auto) 0.500, Neut % (Auto) 75.3 H, Lymph % (Auto) 13.2 L, Concho % (Auto) 6.0, Eos % (Auto) 4.6, Baso % (Auto) 0.4, Absolute Neuts (auto) 7.7, Absolute Lymphs (auto) 1.34, Nucleated RBC % 0, Retic Count 1.93 H, I mmature Retic Fraction 18.30 H, Retic Hgb Equivalent 29.6 L, Sodium 141, Potassium 3.6, Chloride 110 H, Carbon Dioxide 18.4 L, Anion Gap 13, BUN 25 H, C reatinine 1.53 H, Estim Creat Clear Calc 34.51 L, Est GFR (MDRD) Non-Af 37 L, BUN/Creatinine Ratio 16.0, Glucose 108 H, Calcium 8.6, Iron 9 L, TIBC 192 L, I michael Saturation 4.7 L, Unsaturated IBC 183 L, Ferritin 143, Vitamin B12 230 12/05/24 05:22: POC Glucose 89 Micro: Microbiology 12/03/24 22:45 Sputum, Tracheal Aspirate Gram Stain - Final 12/04/24 09:43 Mucosa - Nasopharyngeal SARS-CoV-2, Influenza & RSV (PCR) - Final Imaging Radiology Impression Echocardiogram 12/04/24 08:08 Interpretation Summary Normal LV size. The left ventricular ejection fraction is 45 %. Stage 1 diastolic dysfunction. Mild to moderate segmental systolic dysfunction (see wall motion). There are regional wall motion abnormalities as specified. Contrast injection was performed. Ordering Physician: Alexey Rivera Performed By: Harrison Pack RCS X-Ray 12/04/24 20:30 IMPRESSION: Enteric side port in the lower esophagus, recommend advancement by 9-10 cm. Reading Location: [id number] Chest X-Ray 12/05/24 10:10 IMPRESSION: ETT tip is just above the hina and should be retracted 2-3 cm NG tube tip in the proximal stomach should be advanced Satisfactory positioning of the right-sided PICC line Decreased airspace opacifications in both lung simeon compared to the previous study, follow-up recommended to ensure complete resolution Reading Location: [id number]
[2024-12-05] MEDS: Propofol 10MG/Ml 1,000 MG/100 ML Bottle 10.9 MG CONT INF ×2 (12:00→21:14)
--- NOTE | 2024-12-05 13:40 | RAD_ITS ---
PROCEDURE: ABDOMEN SINGLE VIEW 12/05/2024 REASON FOR EXAM: OG PLACEMENT TECHNIQUE: Procedure Code: RADABD Modality: DX Procedure: ABDOMEN SINGLE VIEW COMPARISON: Earlier today FINDINGS: The tip of the OG tube is unchanged from the previous study, it is noted in the proximal stomach. Bowel-gas pattern is unremarkable Bony structures show degenerative change RAD/Abdomen Single View IMPRESSION: No change since the previous study Reading Location: [id number]
[2024-12-05] MEDS: Pantoprazole Sodium 40 MG in 0.9% Normal Saline (100mL MB+) 100 ML 300 MG IV (21:19)
[2024-12-06] VITALS (42 sets, daily range): BP systolic 90–147; BP diastolic 41–126; PULSE 53–115; RESP 14–25; TEMP 36.6–37.6; O2SAT 92–100; BMI 28.0
[2024-12-06 04:12] LABS: Hematocrit 23.9 % (37-47); Hemoglobin 7.8 g/dL (12.0-15.0); Immature Granulocytes Count 0.030 X10^3/uL (0.0-0.0); Mean Corp Hgb Conc 32.6 g/dL (32-36); Mean Corpuscular Volume 85.4 fL (81-99); Mean Platelet Vol. 10.3 fl (6.2-12.0); NRBC Flagged by Analyzer 0 % (0-5); Platelet Count 249 K/mm3 (150-450); RBC Distribution Width CV 14.6 % (11.6-14.6); RBC Distribution Width SD 45.3 fl (35.1-43.9); Red Blood Count 2.80 M/mm3 (4.2-5.4); White Blood Count 9.0 K/mm3 (4.4-11.0)
[2024-12-06 04:29] LABS: AST(SGOT) 24 U/L (<=31); Alanine Aminotransfer ALT/SGPT 5 U/L (<=34); Albumin, Serum 3.0 g/dL (3.4-4.8); Alkaline Phosphatase 82 U/L (35-104); Anion Gap 14 (5-15); BUN 26 mg/dL (4-19); BUN/Creat Ratio 15.4 RATIO (10-20); Bilirubin, Direct 0.32 mg/dL (0.00-0.30); Calcium,Total 8.5 mg/dL (7.6-11.0); Carbon Dioxide 18.2 mmol/L (21.0-32.0); Chloride 110 mmol/L (98-108); Estimated Creatinine Clearance 31.81 ml/min (50-250); Globulin 3.0 g/dL (2.2-4.2); Glucose 85 mg/dL (70-99); Magnesium 1.6 mg/dL (1.5-2.2); Potassium 3.1 mmol/L (3.3-5.1)
[2024-12-06] MEDS: Propofol 10MG/Ml 1,000 MG/100 ML Bottle 10.9 MG CONT INF (05:31)
[2024-12-06] MEDS: CHLORHEXIDINE GLUC 2% CLOTH 1 EACH TOWELETTE TOPICAL (05:34)
--- NOTE | 2024-12-06 07:26 | PCM.PN.INT ---
Assessment & Plan Assessment/Plan (1) Acute respiratory failure: (2) Acute UTI: PLAN: Plan RECOMMENDATIONS: 1. Proceed with a trial of extubation this morning. 2. Once extubated, wean supplemental oxygen to maintain saturations at or above 90%. 3. Perform bedside swallow evaluation with dietary advancement as tolerated. 4. Continue empiric antimicrobials. 5. Continue appropriate DVT prophylaxis. 6. Encourage incentive spirometer use and mobilize patient as tolerated. IMPRESSIONS: 1. Sepsis The patient presented with sepsis due to suspected UTI and pneumonia with acute sepsis related organ dysfunction as evidenced by acute respiratory failure requiring invasive mechanical ventilatory support. The patient will be continued on empiric antimicrobials, while awaiting infectious workup. Hemodynamic status is stable. 2. Acute respiratory failure with hypoxemia and hypercapnia Improved. Most likely related to underlying bilateral pneumonia, coupled with a component of CHF. The patient was noted to have a depressed ejection fraction of 45% on echocardiogram. The patient will be continued on empiric antimicrobials, while awaiting infectious workup. With supportive care, the patient was able to be extubated on the morning of December 2. Plan to continue to wean supplemental oxygen to maintain saturations at or above 90%. 3. Encephalopathy Most likely metabolic in nature and related to presenting infectious etiologies. CT head revealed no acute intracranial findings. Will continue supportive care as noted above. 4. History of hypertension/hyperlipidemia/diabetes mellitus/peripheral vascular disease Complicates care, management, recovery and prognosis. Continue supportive measures as noted above. Continue Accu-Cheks and sliding scale insulin coverage. TIME: 36 minutes of critical care time, independent of procedures, was spent addressing the patient's sepsis, acute respiratory failure with hypoxemia and hypercapnia, encephalopathy, review of all data and collaboration with the care team. Subjective Subjective The patient was seen and examined at the bedside this morning. Events from the last 24 hours have been reviewed. The patient currently has a low-grade fever but remains otherwise hemodynamically stable on assist-control mode of mechanical ventilation with an FiO2 requirement of 21% and PEEP of 5. The patient is documented to be overall net +1.5 L for the hospitalization. Hemoglobin this morning was noted to be 7.8 g/dL with a platelet count of 249,000. Potassium is low at 3.1. Creatinine is relatively stable at 1.6. Following my initial evaluation of the patient, she was able to complete a spontaneous awakening trial without issue. Accordingly, the patient was placed on a spontaneous breathing trial, which she completed. The patient is alert and able to follow simple commands. Therefore, the patient was extubated. Objective Data Objective Data The patient's most recent lab work, culture data and imaging studies have all been personally reviewed. Surface echocardiogram demonstrated an ejection fraction of 45% with stage I diastolic dysfunction. Blood, urine and sputum cultures are pending. Vital Signs: Vital Signs Temp Pulse Resp BP Pulse Ox O2 Del Method FiO2 99.6 F H 82 18 128/58 H 96 Mechanical Ventilator 21 12/06/24 07:01 12/06/24 07:03 12/06/24 07:05 12/06/24 07:01 12/06/24 07:03 12/06/24 07:01 12/06/24 07:01 Oxygen Delivery Method Mechanical Ventilator Weight: 158 lb 8.198 oz Body Mass Index (BMI) 28.0 Intake & Output: Intake and Output for Last 24 Hours 12/04/24 12/05/24 12/06/24 23:59 23:59 23:59 Intake Total 2387.60 / 2409.25 1032.44 / 1044.14 160.75 / 160.75 Output Total 1275 / 1275 1500 / 1500 250 / 250 Balance 1112.60 / 1134.25 -467.56 / -455.86 -89.25 / -89.25 Lab / Micro Data Attestation: I reviewed the patient's lab results. 12/06/24 04:00 12/06/24 04:00 Labs: Laboratory Results - last 24 hr 12/05/24 03:55: Retic Count 1.93 H, Immature Retic Fraction 18.30 H, Retic Hgb Equivalent 29.6 L, Iron 9 L, TIBC 192 L, Iron Saturation 4.7 L, Unsaturated IBC 183 L, Ferritin 143, Vitamin B12 230 12/05/24 11:51: POC Glucose 121 H 12/05/24 17:42: POC Glucose 90 12/06/24 00:39: POC Glucose 83 12/06/24 04:00: WBC 9.0, RBC 2.80 L, Hgb 7.8 L, Hct 23.9 L, MCV 85.4, MCH 27.9, MCHC 32.6, RDW Std Deviation 45.3 H, RDW Coeff of Nuno 14.6, Plt Count 249, MPV 10.3, Immature Gran % (Auto) 0.300, Neut % (Auto) 74.0 H, Lymph % (Auto) 11.7 L, Mccormick % (Auto) 7.3, Eos % (Auto) 6.4 H, Baso % (Auto) 0.3, Absolute Neuts (auto) 6.7, Absolute Lymphs (auto) 1.05, Nucleated RBC % 0, Sodium 143, Potassium 3.1 L, Chloride 110 H, Carbon Dioxide 18.2 L, Anion Gap 14, BUN 26 H, Creatinine 1.66 H, Estim Creat Clear Calc 31.81 L, Est GFR (MDRD) Non-Af 34 L, BUN/Creatinine Ratio 15.4, Glucose 85, Calcium 8.5, Phosphorus 3.4, Magnesium 1.6, Total Bilirubin 0.46, Direct Bilirubin 0.32 H, AST 24, ALT 5, Alkaline Phosphatase 82, Total Protein 6.0, Albumin 3.0 L, Globulin 3.0 12/06/24 05:29: POC Glucose 87 Micro: Microbiology 12/03/24 22:45 Sputum, Tracheal Aspirate Gram Stain - Final 12/04/24 09:43 Mucosa - Nasopharyngeal SARS-CoV-2, Influenza & RSV (PCR) - Final Radiography Diagnostic Testing: Radiology Impression Chest X-Ray 12/05/24 10:10 IMPRESSION: ETT tip is just above the hina and should be retracted 2-3 cm NG tube tip in the proximal stomach should be advanced Satisfactory positioning of the right-sided PICC line Decreased airspace opacifications in both lung simeon compared to the previous study, follow-up recommended to ensure complete resolution Reading Location: [facility] X-Ray 12/05/24 13:40 IMPRESSION: No change since the previous study Reading Location: [id number] Physical Exam Const Constitutional Narrative: Remains intubated and mechanically ventilated. Currently tolerating spontaneous mode of mechanical ventilation. HEENT normocephalic and head/scalp atraumatic Mouth: endotracheal tube in place Eyes PERRL, EOMs intact bilaterally and conjunctivae normal Neck supple General: trachea midline Chest inspection of chest normal Resp normal respiratory effort Auscultation: rales and diminished lung sounds Cardio regular rate and regular rhythm Heart Sounds: murmur GI normal to inspection, nondistended, normoactive bowel sounds Extremity General Extremity: Negative for clubbing or edema Skin Skin Narrative: Right foot is currently wrapped. Neuro Neuro Narrative: Alert and able to follow simple commands. Charges/Coding Procedures Hospitalists Procedures: [id number] Critical Care 1st Hr
[2024-12-06] MEDS: Azithromycin 500 MG in 0.9% Normal Saline (250mL Bag) 250 ML 250 MG IV (07:58)
[2024-12-06] MEDS: 0.9% Saline Lock 10 ML Syringe IV (08:06)
[2024-12-06] MEDS: 0.9% Normal Saline (250mL Bag) 250 ML 15 ML IV (08:56)
[2024-12-06] MEDS: Potassium Chloride 20mEq/100mL 20 MEQ/100 ML IV.SOLN. 100 MEQ IV BOLUS ×2 (08:56→10:00)
--- NOTE | 2024-12-06 09:23 | PCM.PN.HOSP ---
Reason for Visit Chief Complaint: Acute respiratory failure, UTI Subjective Subjective Patient seen and weaned off the vent this a.m. Scheduled to undergo dysphagia screen. Diagnostic data reviewed significant for hypokalemia which is currently being corrected per protocol Objective Data Objective Data Vital Signs: Vital Signs Temp Pulse Resp BP Pulse Ox O2 Del Method O2 Flow Rate 98.9 F 91 22 H 124/55 H 93 Nasal Cannula 2 12/06/24 09:01 12/06/24 09:01 12/06/24 09:01 12/06/24 09:01 12/06/24 09:01 12/06/24 09:01 12/06/24 09:01 FiO2 21 12/06/24 07:01 Oxygen Flow Rate (L/min) 2 Oxygen Delivery Method Nasal Cannula Weight: 71.9 kg Body Mass Index (BMI) 28.0 Intake & Output: Intake and Output for Last 24 Hours 12/04/24 12/05/24 12/06/24 23:59 23:59 23:59 Intake Total 2387.60 / 2409.25 1032.44 / 1044.14 410.75 / 410.75 Output Total 1275 / 1275 1500 / 1500 250 / 250 Balance 1112.60 / 1134.25 -467.56 / -455.86 160.75 / 160.75 Lab / Micro Data 12/06/24 04:00 12/06/24 04:00 Labs: Laboratory Results - last 24 hr 12/05/24 11:51: POC Glucose 121 H 12/05/24 17:42: POC Glucose 90 12/06/24 00:39: POC Glucose 83 12/06/24 04:00: WBC 9.0, RBC 2.80 L, Hgb 7.8 L, Hct 23.9 L, MCV 85.4, MCH 27.9, MCHC 32.6, RDW Std Deviation 45.3 H, RDW Coeff of Nuno 14.6, Plt Count 249, MPV 10.3, Immature Gran % (Auto) 0.300, Neut % (Auto) 74.0 H, Lymph % (Auto) 11.7 L, Thomas % (Auto) 7.3, Eos % (Auto) 6.4 H, Baso % (Auto) 0.3, Absolute Neuts (auto) 6.7, Absolute Lymphs (auto) 1.05, Nucleated RBC % 0, Sodium 143, Potassium 3.1 L, Chloride 110 H, Carbon Dioxide 18.2 L, Anion Gap 14, BUN 26 H, Creatinine 1.66 H, Estim Creat Clear Calc 31.81 L, Est GFR (MDRD) Non-Af 34 L, BUN/Creatinine Ratio 15.4, Glucose 85, Calcium 8.5, Phosphorus 3.4, Magnesium 1.6, Total Bilirubin 0.46, Direct Bilirubin 0.32 H, AST 24, ALT 5, Alkaline Phosphatase 82, Total Protein 6.0, Albumin 3.0 L, Globulin 3.0 12/06/24 05:29: POC Glucose 87 12/06/24 08:05: Blood Type O POSITIVE, Antibody Screen NEGATIVE Micro: Microbiology 12/03/24 22:45 Sputum, Tracheal Aspirate Gram Stain - Final 12/03/24 22:45 Sputum, Tracheal Aspirate Respiratory Culture - Final Mixed normal respiratory alma rosa. No Streptococcus pneumoniae, beta-hemolytic Streptococcus or Staphylococcus aureus isolated. 12/03/24 23:45 Blood Culture (Wb) - Anticubital Right Blood Culture - Preliminary No growth in 48 hours. 12/03/24 23:45 Blood Culture (Wb) - Anticubital Left Blood Culture - Preliminary No growth in 48 hours. 12/04/24 09:43 Mucosa - Nasopharyngeal SARS-CoV-2, Influenza & RSV (PCR) - Final Radiography Diagnostic Testing: Radiology Impression Chest X-Ray 12/05/24 10:10 IMPRESSION: ETT tip is just above the hina and should be retracted 2-3 cm NG tube tip in the proximal stomach should be advanced Satisfactory positioning of the right-sided PICC line Decreased airspace opacifications in both lung simeon compared to the previous study, follow-up recommended to ensure complete resolution Reading Location: [facility] KUB X-Ray 12/05/24 13:40 IMPRESSION: No change since the previous study Reading Location: [facility] Physical Exam Narrative GENERAL: Lethargic but arousable HEENT: Atraumatic; normocephalic EYES; Anicteric, Normal Conjunctiva NECK; supple, normal thyroid, RESPIRATORY: Diminished to auscultation CARDIOVASCULAR: Regular S1 S2, GI: soft, normoactive bowel sounds, : No Renal angle tenderness; EXTREMITIES: No edema, no clubbing, MUSCULOSKELETAL: no muscle wasting NEURO: Awake; no lateralizing signs. SKIN: No Rash PSYCH; Flat affect Assessment & Plan Assessment/Plan (1) Acute UTI: (2) DM type 2 (diabetes mellitus, type 2): (3) Hypertension: (4) Hyperlipidemia: (5) Acute respiratory failure: PLAN: Plan Patient is a 64-year-old female who presented to the emergency department with abdominal pain with associated dysuria. She apparently developed dyspnea diaphoresis and became unresponsive. Imaging intubation was done. Subsequent CT demonstrated Bilateral multifocal ground-glass density/airspace consolidations more prominent in the lower lobes, probably multifocal pneumonia. Admitted to the intensive care unit for subsequent management 1. Acute hypoxic and hypercapnic respiratory failure ? Patient underwent emergency intubation in the ED subsequently admitted to the intensive care unit. Vent management deferred to baggage and mail agent/pulmonary medicine ? 12/06/2024; patient was weaned off the vent this a.m. Scheduled to undergo dysphagia screen 2. Multifocal pneumonia with suspected gram-positive organisms ? Patient managed with broad-spectrum antibiotic therapy in addition to being intubated for ventilatory support ? Time 04/26/2024; patient was weaned off the vent this a.m. Cultures so far negative to date. 3. Acute pyelonephritis ? Imaging studies obtained on admission heterogeneous nephrogram of the left kidney, possibly acute pyelonephritis without obstructing stone or drainable abscess.. Blood and urine cultures sent on admission results still pending ? 12/06/2024; urine culture still pending 4. Septic shock ? Secondary to combination of pneumonia and UTI. Patient was managed per protocol with IV fluid resuscitation broad-spectrum antibiotic therapy after cultures have been sent. Patient remains on pressors with Levophed 5. Anemia ? Secondary to chronic disorder monitoring H&H and transfuse if patient becomes symptomatic or hemoglobin falls below 7 ? 12/06/2024; patient hemoglobin continues to drop ordered iron studies and patient was typed and screened 6. Acute kidney injury ? Patient baseline creatinine from 12/23/2021 was 1.02 creatinine on admission was 1.53. Patient currently on IV fluids as well as pressor support with daily monitoring of BMPs. Consult was placed to nephrology ? 12/06/2024; patient was seen in consultation by Dr. Boyd with nephrology notes and recommendations reviewed 7. Dyslipidemia ? Patient is on atorvastatin plan is to resume once patient is weaned off the vent 8. Diabetes mellitus type 2 ? Patient is on glipizide and metformin as well as Actos held placed on Accu-Cheks with sliding scale coverage 9. Essential hypertension ? Patient antihypertensives on hold given her low blood pressure 10. Gastritis ? Patient placed on PPI 11. Renal mass Imaging studies did show complex lesion is noted in the upper pole of the left kidney measuring 5.3 x 4.9 cm, suspicious for neoplasm, not present on the prior exam. Plan is for patient to undergo further evaluation once weaned off the vent. ? 12/06/2024; plan is for patient to undergo dedicated MRI of the kidney 12. Constipation ? CT of the abdomen did show Moderate amount of fecal residue in the large bowels, probably constipation with associated minimal stercoral colitis. This probably explained patient abdominal pain on presentation plan is to treat symptomatically 13. Hypokalemia ? Corrected per protocol repeat BMP ordered in a.m. for subsequent eval 14. DVT prophylaxis ? Low molecular weight Time spent in the patient's overall evaluation,decision-making process, review of diagnostic data, adjustment of management, discussion with other providers, nursing nursing and ancillary staff involved in patient's care documentation, 50 Minutes Charges/Coding Visit Charges Inpatient E&M: 30064 [facility] Hosp L3
[2024-12-06 10:13] LABS: Platelet Count 256 K/mm3 (150-450)
[2024-12-06 10:41] LABS: Ferritin 183 ng/mL (22-378); Iron 12 ug/dL (50-170); Iron Binding Capacity,Unsat 157 ug/dL (228-428); Vitamin B12 291 pg/mL (180-914)
[2024-12-06 10:43] LABS: Reticulocyte Count 2.12 % (0.5-1.5)
[2024-12-06 10:45] LABS: Immature Reticulocyte Fraction 12.50 % (3.00-15.90)
--- NOTE | 2024-12-06 11:41 | NURSING ---
Dr. Rivera at bedside, ordered to extubate pt. with respiratory therapy, extubated @ 0740, placed on 4L NC. restraints d/c. patient tolerated well.
--- NOTE | 2024-12-06 11:45 | PCM.PN.REN ---
Subjective Subjective Patient was extubated. Patient awake, resting in bed. Daughter and brother at bedside. Objective Data Objective Data Vital Signs: Vital Signs Temp Pulse Resp BP Pulse Ox O2 Del Method O2 Flow Rate 98.1 F 89 18 90/65 94 Nasal Cannula 2 12/06/24 11:00 12/06/24 11:00 12/06/24 11:00 12/06/24 11:00 12/06/24 11:00 12/06/24 11:00 12/06/24 11:00 FiO2 21 12/06/24 07:01 Oxygen Flow Rate (L/min) 2 Oxygen Delivery Method Nasal Cannula Weight: 71.9 kg Body Mass Index (BMI) 28.0 Intake & Output: Intake and Output for Last 24 Hours 12/04/24 12/05/24 12/06/24 23:59 23:59 23:59 Intake Total 2387.60 / 2409.25 1032.44 / 1044.14 610.75 / 610.75 Output Total 1275 / 1275 1500 / 1500 250 / 250 Balance 1112.60 / 1134.25 -467.56 / -455.86 360.75 / 360.75 Lab / Micro Data 12/06/24 04:00 12/06/24 04:00 Labs: Laboratory Results - last 24 hr 12/05/24 11:51: POC Glucose 121 H 12/05/24 17:42: POC Glucose 90 12/06/24 00:39: POC Glucose 83 12/06/24 04:00: WBC 9.0, RBC 2.80 L, Hgb 7.8 L, Hct 23.9 L, MCV 85.4, MCH 27.9, MCHC 32.6, RDW Std Deviation 45.3 H, RDW Coeff of Nuno 14.6, Plt Count 249, MPV 10.3, Immature Gran % (Auto) 0.300, Neut % (Auto) 74.0 H, Lymph % (Auto) 11.7 L, Caroline % (Auto) 7.3, Eos % (Auto) 6.4 H, Baso % (Auto) 0.3, Absolute Neuts (auto) 6.7, Absolute Lymphs (auto) 1.05, Nucleated RBC % 0, Retic Count 2.12 H, Immature Retic Fraction 12.50, Retic Hgb Equivalent 27.8 L, Sodium 143, Potassium 3.1 L, Chloride 110 H, Carbon Dioxide 18.2 L, Anion Gap 14, BUN 26 H, Creatinine 1.66 H, Estim Creat Clear Calc 31.81 L, Est GFR (MDRD) Non-Af 34 L, BUN/Creatinine Ratio 15.4, Glucose 85, Calcium 8.5, Phosphorus 3.4, Magnesium 1.6, Iron 12 L, Iron Saturation 7.3 L, Unsaturated IBC 157 L, Ferritin 183, Total Bilirubin 0.46, Direct Bilirubin 0.32 H, AST 24, ALT 5, Alkaline Phosphatase 82, Total Protein 6.0, Albumin 3.0 L, Globulin 3.0, Vitamin B12 291 12/06/24 05:29: POC Glucose 87 12/06/24 08:05: Blood Type O POSITIVE, Antibody Screen NEGATIVE Micro: Microbiology 12/03/24 22:45 Sputum, Tracheal Aspirate Gram Stain - Final 12/03/24 22:45 Sputum, Tracheal Aspirate Respiratory Culture - Final Mixed normal respiratory alma rosa. No Streptococcus pneumoniae, beta-hemolytic Streptococcus or Staphylococcus aureus isolated. 12/03/24 23:45 Blood Culture (Wb) - Anticubital Right Blood Culture - Preliminary No growth in 48 hours. 12/03/24 23:45 Blood Culture (Wb) - Anticubital Left Blood Culture - Preliminary No growth in 48 hours. 12/04/24 09:43 Mucosa - Nasopharyngeal SARS-CoV-2, Influenza & RSV (PCR) - Final Radiography Diagnostic Testing: Radiology Impression KUB X-Ray 12/05/24 13:40 IMPRESSION: No change since the previous study Reading Location: [facility] Physical Exam Narrative Alert, awake, no apparent distress no JVD s1s2 no murmurs Breath sounds clear anteriorly abdomen soft no edema varner + Assessment & Plan Assessment/Plan (1) ANTONIO (acute kidney injury): PLAN: History of diabetes, reviewed lab data from outpatient epic. HbA1c was fairly high up until 2 years ago, over the last 1 year, HbA1c values have come down to about 7.2-7.3. Likely has some diabetic nephropathy. Baseline creatinine appears to be around 1.2 and so she has CKD stage IIIa. - ANTONIO is likely due to ongoing events, ATN. Nonoliguric, indwelling Varner catheter with decent urine output, urine output 1.5 L yesterday. No hyperkalemia or severe acidosis at this time. Continue supportive therapy. Serum creatinine was 1.53 on admission, today creatinine 1.66. Potassium 3.1, received replacement this morning. Blood pressures have improved. CT abdomen revealed a 5.3 cm heterogeneous mass. There is some lymphadenopathy as well. There is pyelonephritis changes on the other side, on coverage with antibiotics as per primary. When she is clinically stable, will likely need a dedicated renal mass protocol MRI. -Sepsis; suspected secondary to UTI and pneumonia. Hemodynamics improved. Off IV pressors. Discussed with daughter and patient's brother at bedside. Questions answered. Assessment and plan reviewed with Dr. Boyd.
[2024-12-06 11:57] LABS: Iron Binding Capacity,Total 169 ug/dL (250-450)
[2024-12-06] MEDS: Sodium Ferric Gluconat/Sucrose 250 MG in 0.9% Normal Saline (250mL Bag) 250 ML 135 MG IV (15:38)
[2024-12-07] VITALS (16 sets, daily range): BP systolic 100–132; BP diastolic 51–102; PULSE 78–95; RESP 17–24; TEMP 36.3–37.3; O2SAT 80–100; BMI 27.8
[2024-12-07 03:53] LABS: Hematocrit 24.7 % (37-47); Hemoglobin 7.8 g/dL (12.0-15.0); Immature Granulocytes Count 0.050 X10^3/uL (0.0-0.0); Mean Corp Hgb Conc 31.6 g/dL (32-36); Mean Corpuscular Volume 89.2 fL (81-99); Mean Platelet Vol. 9.6 fl (6.2-12.0); NRBC Flagged by Analyzer 0 % (0-5); Platelet Count 222 K/mm3 (150-450); RBC Distribution Width CV 14.4 % (11.6-14.6); RBC Distribution Width SD 46.5 fl (35.1-43.9); Red Blood Count 2.77 M/mm3 (4.2-5.4); White Blood Count 7.7 K/mm3 (4.4-11.0)
[2024-12-07 04:17] LABS: Anion Gap 15 (5-15); BUN 29 mg/dL (4-19); BUN/Creat Ratio 19.9 RATIO (10-20); Calcium,Total 8.5 mg/dL (7.6-11.0); Carbon Dioxide 17.8 mmol/L (21.0-32.0); Chloride 113 mmol/L (98-108); Estimated Creatinine Clearance 36.27 ml/min (50-250); Glucose 112 mg/dL (70-99); Potassium 4.2 mmol/L (3.3-5.1)
--- NOTE | 2024-12-07 07:14 | PCM.PN.HOSP ---
Reason for Visit Chief Complaint: Acute respiratory failure, UTI Subjective Subjective Patient seen much more awake and interactive compared to previous day. Patient did feel her bedside speech eval the day prior. Plan is for patient to undergo formal speech evaluation by speech therapy.Patient diagnostic data significant for anemia with hemoglobin of 7.8. Sodium up to 146. Objective Data Objective Data Vital Signs: Vital Signs Temp Pulse Resp BP Pulse Ox O2 Del Method O2 Flow Rate 99.1 F 85 17 132/59 H 100 Nasal Cannula 2 12/07/24 05:00 12/07/24 07:00 12/07/24 07:00 12/07/24 07:00 12/07/24 07:00 12/07/24 07:00 12/07/24 07:00 FiO2 21 12/06/24 07:01 Oxygen Flow Rate (L/min) 2 Oxygen Delivery Method Nasal Cannula Weight: 71.4 kg Body Mass Index (BMI) 27.8 Intake & Output: Intake and Output for Last 24 Hours 12/05/24 12/06/24 12/07/24 23:59 23:59 23:59 Intake Total 1032.44 / 1044.14 974.00 / 974.00 0 / 0 Output Total 1500 / 1500 850 / 850 250 / 250 Balance -467.56 / -455.86 124.00 / 124.00 -250 / -250 Lab / Micro Data 12/07/24 03:38 12/07/24 03:38 Labs: Laboratory Results - last 24 hr 12/06/24 04:00: Retic Count 2.12 H, Immature Retic Fraction 12.50, Retic Hgb Equivalent 27.8 L, Iron 12 L, TIBC 169 L, Iron Saturation 7.1 L, Unsaturated IBC 157 L, Ferritin 183, Vitamin B12 291 12/06/24 08:05: Blood Type O POSITIVE, Antibody Screen NEGATIVE 12/06/24 11:06: POC Glucose 115 H 12/06/24 16:39: POC Glucose 127 H 12/07/24 00:12: POC Glucose 123 H 12/07/24 03:38: WBC 7.7, RBC 2.77 L, Hgb 7.8 L, Hct 24.7 L, MCV 89.2, MCH 28.2, MCHC 31.6 L, RDW Std Deviation 46.5 H, RDW Coeff of Nuno 14.4, Plt Count 222, MPV 9.6, Immature Gran % (Auto) 0.600, Neut % (Auto) 78.4 H, Lymph % (Auto) 10.1 L, [place] % (Auto) 7.6, Eos % (Auto) 3.0, Baso % (Auto) 0.3, Absolute Neuts (auto) 6.1, Absolute Lymphs (auto) 0.78 L, Nucleated RBC % 0, Sodium 146 H, Potassium 4.2, Chloride 113 H, Carbon Dioxide 17.8 L, Anion Gap 15, BUN 29 H, Creatinine 1.45 H, Estim Creat Clear Calc 36.27 L, Est GFR (MDRD) Non-Af 40 L, BUN/Creatinine Ratio 19.9, Glucose 112 H, Calcium 8.5 12/07/24 05:21: POC Glucose 89 Micro: Microbiology 12/03/24 22:45 Sputum, Tracheal Aspirate Gram Stain - Final 12/03/24 22:45 Sputum, Tracheal Aspirate Respiratory Culture - Final Mixed normal respiratory alma rosa. No Streptococcus pneumoniae, beta-hemolytic Streptococcus or Staphylococcus aureus isolated. 12/03/24 23:45 Blood Culture (Wb) - Anticubital Right Blood Culture - Preliminary No growth in 48 hours. 12/03/24 23:45 Blood Culture (Wb) - Anticubital Left Blood Culture - Preliminary No growth in 48 hours. 12/04/24 09:43 Mucosa - Nasopharyngeal SARS-CoV-2, Influenza & RSV (PCR) - Final Physical Exam Narrative GENERAL: Lethargic but arousable HEENT: Atraumatic; normocephalic EYES; Anicteric, Normal Conjunctiva NECK; supple, normal thyroid, RESPIRATORY: Diminished to auscultation CARDIOVASCULAR: Regular S1 S2, GI: soft, normoactive bowel sounds, : No Renal angle tenderness; EXTREMITIES: No edema, no clubbing, MUSCULOSKELETAL: no muscle wasting NEURO: Awake; no lateralizing signs. SKIN: No Rash PSYCH; Flat affect Assessment & Plan Assessment/Plan (1) Acute UTI: (2) DM type 2 (diabetes mellitus, type 2): (3) Hypertension: (4) Hyperlipidemia: (5) Acute respiratory failure: PLAN: Plan Patient is a 64-year-old female who presented to the emergency department with abdominal pain with associated dysuria. She apparently developed dyspnea diaphoresis and became unresponsive. Imaging intubation was done. Subsequent CT demonstrated Bilateral multifocal ground-glass density/airspace consolidations more prominent in the lower lobes, probably multifocal pneumonia. Admitted to the intensive care unit for subsequent management 1. Acute hypoxic and hypercapnic respiratory failure ? Patient underwent emergency intubation in the ED subsequently admitted to the intensive care unit. Vent management deferred to chemical pathologist/pulmonary medicine ? 12/06/2024; patient was weaned off the vent this a.m. Scheduled to undergo dysphagia screen ? 12/07/2024. Patient remains on oxygen via nasal cannula currently 2 L flow per minute. She did feel her speech and swallow eval the day prior plan is to undergo formal evaluation by speech therapy 2. Multifocal pneumonia with suspected gram-positive organisms ? Patient managed with broad-spectrum antibiotic therapy in addition to being intubated for ventilatory support ? Time 04/26/2024; patient was weaned off the vent this a.m. Cultures so far negative to date. 3. Acute pyelonephritis ? Imaging studies obtained on admission heterogeneous nephrogram of the left kidney, possibly acute pyelonephritis without obstructing stone or drainable abscess.. Blood and urine cultures sent on admission results still pending ? 12/06/2024; urine culture still pending ? 12/07/2024; urine cultures came back positive for E. coli and nonsignificant growth of gram-positive joyce. Remains on appropriate antibiotic 4. Septic shock ? Secondary to combination of pneumonia and UTI. Patient was managed per protocol with IV fluid resuscitation broad-spectrum antibiotic therapy after cultures have been sent. Patient remains on pressors with Levophed ? 12/07/2024; patient has been weaned off Levophed 5. Anemia ? Secondary to chronic disorder monitoring H&H and transfuse if patient becomes symptomatic or hemoglobin falls below 7 ? 12/06/2024; patient hemoglobin continues to drop ordered iron studies and patient was typed and screened ? 12/07/2024; hemoglobin this a.m. 7.8. Iron studies obtained the day prior did demonstrate severe iron deficiency anemia patient started on parenteral iron. Patient will need to undergo evaluation as outpatient by GI 6. Acute kidney injury ? Patient baseline creatinine from 12/23/2021 was 1.02 creatinine on admission was 1.53. Patient currently on IV fluids as well as pressor support with daily monitoring of BMPs. Consult was placed to nephrology ? 12/06/2024; patient was seen in consultation by Dr. Boyd with nephrology notes and recommendations reviewed 7. Dyslipidemia ? Patient is on atorvastatin plan is to resume once patient is weaned off the vent ? 12/07/2024; patient statin therapy resumed 8. Diabetes mellitus type 2 ? Patient is on glipizide and metformin as well as Actos held placed on Accu-Cheks with sliding scale coverage 9. Essential hypertension ? Patient antihypertensives on hold given her low blood pressure 10. Gastritis ? Patient placed on PPI 11. Renal mass Imaging studies did show complex lesion is noted in the upper pole of the left kidney measuring 5.3 x 4.9 cm, suspicious for neoplasm, not present on the prior exam. Plan is for patient to undergo further evaluation once weaned off the vent. ? 12/06/2024; plan is for patient to undergo dedicated MRI of the kidney 12. Constipation ? CT of the abdomen did show Moderate amount of fecal residue in the large bowels, probably constipation with associated minimal stercoral colitis. This probably explained patient abdominal pain on presentation plan is to treat symptomatically 13. Hypokalemia ? Corrected per protocol repeat BMP ordered in a.m. for subsequent eval 14. Mild hypernatremia ? Will adjust patient IV fluid with repeat BMP in a.m. 15. DVT prophylaxis ? Low molecular weight Time spent in the patient's overall evaluation,decision-making process, review of diagnostic data, adjustment of management, discussion with other providers, nursing nursing and ancillary staff involved in patient's care documentation, 52 Minutes Charges/Coding Visit Charges Inpatient E&M: 35678 [facility] Hosp L3
--- NOTE | 2024-12-07 07:25 | PN.CC_ITS ---
Assessment & Plan Assessment/Plan (1) Acute respiratory failure: (2) Acute UTI: PLAN: Plan RECOMMENDATIONS: 1. Continue to wean supplemental oxygen to maintain saturations at or above 90%. 2. Continue antibiotics to complete 7 days of therapy. 3. Continue appropriate DVT prophylaxis. 4. Encourage incentive spirometer use and mobilize patient as tolerated. 5. The patient is medically stable for transfer out of the intensive care unit. Will sign off at this time. IMPRESSIONS: 1. Sepsis The patient presented with sepsis due to suspected UTI and pneumonia with acute sepsis related organ dysfunction as evidenced by acute respiratory failure requiring invasive mechanical ventilatory support. The patient will be continued on empiric antimicrobials to complete 7 days of therapy. The patient remains otherwise hemodynamically stable. 2. Acute respiratory failure with hypoxemia and hypercapnia Improved. Most likely related to underlying bilateral pneumonia, coupled with a component of CHF. The patient was noted to have a depressed ejection fraction of 45% on echocardiogram. The patient will be continued on empiric antimicrobials to complete 7 days of therapy. With supportive care, the patient was able to be extubated on the morning of December 2. Plan to continue to wean supplemental oxygen to maintain saturations at or above 90%. 3. Encephalopathy Resolved. Most likely metabolic in nature and related to presenting infectious etiologies. CT head revealed no acute intracranial findings. Will continue supportive care as noted above. 4. History of hypertension/hyperlipidemia/diabetes mellitus/peripheral vascular disease Complicates care, management, recovery and prognosis. Continue supportive measures as noted above. Continue Accu-Cheks and sliding scale insulin coverage. PT/OT to work with the patient. This note was generated with [employer] dictation software. It may contain incorrect words, spelling, and punctuation that were not noted in checking the note before signing. Subjective Subjective The patient was seen and examined at the bedside this morning. Events from the last 24 hours have been reviewed. The patient is currently afebrile, hemodynamically stable and maintaining appropriate oxygen saturations on 2 L/min via nasal cannula. The patient is documented to be overall net +1.1 L for the hospitalization. White blood cell count is normal. Hemoglobin was noted to be 7.8 g/dL. Platelet count is within normal limits. Creatinine was noted to be 1.45. The patient has no specific complaints this morning. Objective Data Objective Data The patient's most recent lab work, culture data and imaging studies have all been personally reviewed. Surface echocardiogram demonstrated an ejection fraction of 45% with stage I diastolic dysfunction. Urine culture was positive for E. coli. Vital Signs: Vital Signs Temp Pulse Resp BP Pulse Ox O2 Del Method O2 Flow Rate 99.1 F 85 17 132/59 H 100 Nasal Cannula 2 12/07/24 05:00 12/07/24 07:00 12/07/24 07:00 12/07/24 07:00 12/07/24 07:00 12/07/24 07:00 12/07/24 07:00 FiO2 21 12/06/24 07:01 Oxygen Flow Rate (L/min) 2 Oxygen Delivery Method Nasal Cannula Weight: 157 lb 6.561 oz Body Mass Index (BMI) 27.8 Intake & Output: Intake and Output for Last 24 Hours 12/05/24 12/06/24 12/07/24 23:59 23:59 23:59 Intake Total 1032.44 / 1044.14 974.00 / 974.00 0 / 0 Output Total 1500 / 1500 850 / 850 250 / 250 Balance -467.56 / -455.86 124.00 / 124.00 -250 / -250 Lab / Micro Data Attestation: I reviewed the patient's lab results. 12/07/24 03:38 12/07/24 03:38 Labs: Laboratory Results - last 24 hr 12/06/24 04:00: Retic Count 2.12 H, Immature Retic Fraction 12.50, Retic Hgb Equivalent 27.8 L, Iron 12 L, TIBC 169 L, Iron Saturation 7.1 L, Unsaturated IBC 157 L, Ferritin 183, Vitamin B12 291 12/06/24 08:05: Blood Type O POSITIVE, Antibody Screen NEGATIVE 12/06/24 11:06: POC Glucose 115 H 12/06/24 16:39: POC Glucose 127 H 12/07/24 00:12: POC Glucose 123 H 12/07/24 03:38: WBC 7.7, RBC 2.77 L, Hgb 7.8 L, Hct 24.7 L, MCV 89.2, MCH 28.2, MCHC 31.6 L, RDW Std Deviation 46.5 H, RDW Coeff of Nuno 14.4, Plt Count 222, MPV 9.6, Immature Gran % (Auto) 0.600, Neut % (Auto) 78.4 H, Lymph % (Auto) 10.1 L, Alpine % (Auto) 7.6, Eos % (Auto) 3.0, Baso % (Auto) 0.3, Absolute Neuts (auto) 6.1, Absolute Lymphs (auto) 0.78 L, Nucleated RBC % 0, Sodium 146 H, Potassium 4.2, Chloride 113 H, Carbon Dioxide 17.8 L, Anion Gap 15, BUN 29 H, Creatinine 1.45 H, Estim Creat Clear Calc 36.27 L, Est GFR (MDRD) Non-Af 40 L, BUN/Creatinine Ratio 19.9, Glucose 112 H, Calcium 8.5 12/07/24 05:21: POC Glucose 89 Micro: Microbiology 12/03/24 22:45 Sputum, Tracheal Aspirate Gram Stain - Final 12/03/24 22:45 Sputum, Tracheal Aspirate Respiratory Culture - Final Mixed normal respiratory alma rosa. No Streptococcus pneumoniae, beta-hemolytic Streptococcus or Staphylococcus aureus isolated. 12/03/24 23:45 Blood Culture (Wb) - Anticubital Right Blood Culture - Preliminary No growth in 48 hours. 12/03/24 23:45 Blood Culture (Wb) - Anticubital Left Blood Culture - Preliminary No growth in 48 hours. 12/04/24 09:43 Mucosa - Nasopharyngeal SARS-CoV-2, Influenza & RSV (PCR) - Final Radiography Diagnostic Testing: Radiology Impression Chest X-Ray 12/05/24 10:10 IMPRESSION: ETT tip is just above the hina and should be retracted 2-3 cm NG tube tip in the proximal stomach should be advanced Satisfactory positioning of the right-sided PICC line Decreased airspace opacifications in both lung simeon compared to the previous study, follow-up recommended to ensure complete resolution Reading Location: [facility] X-Ray 12/05/24 13:40 IMPRESSION: No change since the previous study Reading Location: [id number] Physical Exam Const alert and no apparent distress General Appearance: cooperative HEENT normocephalic, head/scalp atraumatic and moist oral mucous membranes Eyes PERRL, EOMs intact bilaterally and conjunctivae normal Neck supple General: trachea midline Chest inspection of chest normal Resp normal respiratory effort Auscultation: diminished lung sounds; Negative for rales, rhonchi or wheezes Cardio regular rate and regular rhythm Heart Sounds: murmur GI normal to inspection, nondistended, normoactive bowel sounds Extremity General Extremity: Negative for clubbing or edema Skin Skin Narrative: Right foot is currently wrapped. Neuro CN's II-XII intact bilaterally, moves all extremities and no focal motor deficits Psych Mood & Affect: flat affect Charges/Coding Visit Charges Inpatient E&M: 51492 Subs Hosp L3
[2024-12-07] MEDS: Pantoprazole Sodium 40 MG in 0.9% Normal Saline (100mL MB+) 100 ML 330 MG IV (09:45)
[2024-12-07] MEDS: Azithromycin 500 MG in 0.9% Normal Saline (250mL Bag) 250 ML 250 MG IV (09:46)
[2024-12-07] MEDS: buPROPion (XL) 150 MG TABLET.XL PO (12:04)
--- NOTE | 2024-12-07 14:12 | CASEMGMT ---
Addendum entered by Eleanor Joyner 12/07/24 15:08: HH has been set up for SN, PT, OT, and ST. Addendum entered by Eleanor Joyner 12/07/24 15:05: [facility] returns call and states that they are able to accept and start care on Tuesday. Pt, pt's daughter, and pt's sister updated and are agreeable. Pt denies further questions or concerns at this time. Green sheet placed on the chart for HH and potential new oxygen to help facilitate weekend DC. Original Note: Dr Bryant states that the pt may DC Tuesday vs Tuesday. This RN [employer] collaborated with PT and OT who just reevaluated the pt. PT/OT states that the pt could go home with [facility] or to a SNF if the pt is agreeable. JOSSELYN STROUD to the pt's room at this time. Pt's daughter (Rosetta) and sister (Haylee) at the bedside. Pt states that she prefers to go home with [facility] at this time. Pt states that she has all of the DME that she needs and that her daughter will be with her 27/09. Pt declines wanting to review a list of local in-network HHC agencies and states that she prefers [facility]. TC to [facility] and referral made. Awaiting return response. Noted that the pt currently requiring additional oxygen and may qualify for home oxygen use. A verbal list of local in-network DME companies were provided to the pt at this time. Pt prefers [facility] to continue to follow.
--- NOTE | 2024-12-07 15:05 | PCM.PN.REN ---
Subjective Subjective no new events Objective Data Objective Data Vital Signs: Vital Signs Temp Pulse Resp BP Pulse Ox O2 Del Method O2 Flow Rate 99.1 F 82 21 H 100/63 95 Nasal Cannula 1 12/07/24 05:00 12/07/24 11:00 12/07/24 11:00 12/07/24 11:00 12/07/24 13:30 12/07/24 11:00 12/07/24 13:30 FiO2 21 12/06/24 07:01 Oxygen Flow Rate (L/min) 1 Oxygen Delivery Method Nasal Cannula Weight: 71.4 kg Body Mass Index (BMI) 27.8 Intake & Output: Intake and Output for Last 24 Hours 12/05/24 12/06/24 12/07/24 23:59 23:59 23:59 Intake Total 1032.44 / 1044.14 974.00 / 974.00 590 / 590 Output Total 1500 / 1500 850 / 850 250 / 250 Balance -467.56 / -455.86 124.00 / 124.00 340 / 340 Lab / Micro Data 12/07/24 03:38 12/07/24 03:38 Labs: Laboratory Results - last 24 hr 12/06/24 16:39: POC Glucose 127 H 12/07/24 00:12: POC Glucose 123 H 12/07/24 03:38: WBC 7.7, RBC 2.77 L, Hgb 7.8 L, Hct 24.7 L, MCV 89.2, MCH 28.2, MCHC 31.6 L, RDW Std Deviation 46.5 H, RDW Coeff of Nuno 14.4, Plt Count 222, MPV 9.6, Immature Gran % (Auto) 0.600, Neut % (Auto) 78.4 H, Lymph % (Auto) 10.1 L, [place] % (Auto) 7.6, Eos % (Auto) 3.0, Baso % (Auto) 0.3, Absolute Neuts (auto) 6.1, Absolute Lymphs (auto) 0.78 L, Nucleated RBC % 0, Sodium 146 H, Potassium 4.2, Chloride 113 H, Carbon Dioxide 17.8 L, Anion Gap 15, BUN 29 H, Creatinine 1.45 H, Estim Creat Clear Calc 36.27 L, Est GFR (MDRD) Non-Af 40 L, BUN/Creatinine Ratio 19.9, Glucose 112 H, Calcium 8.5 12/07/24 05:21: POC Glucose 89 12/07/24 11:58: POC Glucose 162 H Micro: Microbiology 12/03/24 20:57 Urine Catheter - Catheter Urine Culture - Final Escherichia coli Gram positive joyce 12/03/24 22:45 Sputum, Tracheal Aspirate Gram Stain - Final 12/03/24 22:45 Sputum, Tracheal Aspirate Respiratory Culture - Final Mixed normal respiratory alma rosa. No Streptococcus pneumoniae, beta-hemolytic Streptococcus or Staphylococcus aureus isolated. 12/03/24 23:45 Blood Culture (Wb) - Anticubital Right Blood Culture - Preliminary No growth in 48 hours. 12/03/24 23:45 Blood Culture (Wb) - Anticubital Left Blood Culture - Preliminary No growth in 48 hours. 12/04/24 09:43 Mucosa - Nasopharyngeal SARS-CoV-2, Influenza & RSV (PCR) - Final Physical Exam Narrative Alert, awake, no apparent distress no JVD s1s2 no murmurs Breath sounds clear anteriorly abdomen soft no edema varner + Assessment & Plan Assessment/Plan (1) ANTONIO (acute kidney injury): PLAN: History of diabetes, reviewed lab data from outpatient epic. HbA1c was fairly high up until 2 years ago, over the last 1 year, HbA1c values have come down to about 7.2-7.3. Likely has some diabetic nephropathy. Baseline creatinine appears to be around 1.2 and so she has CKD stage IIIa. - ANTONIO is likely due to ongoing events, ATN. Nonoliguric CT abdomen revealed a 5.3 cm heterogeneous mass. There is some lymphadenopathy as well. There is pyelonephritis changes on the other side, on coverage with antibiotics as per primary. When she is clinically stable, will likely need a dedicated renal mass protocol MRI.
[2024-12-07] MEDS: 0.9% Saline Lock 10 ML Syringe IV (23:22)
[2024-12-08 03:16] VITALS: BP 151/70; PULSE 87; RESP 18; TEMP 37; O2SAT 92
--- NOTE | 2024-12-08 04:16 | PCM.HOSP.N ---
Hospitalist Note Patient with marked dyspnea complaints but has increased up to 5L NC requirement with crackles, unclear if new. Will obtain CXR and BNP. Will defer diuresis immediately given her ANTONIO secondary to ATN presentation.
--- NOTE | 2024-12-08 05:05 | RAD_ITS ---
PROCEDURE: CHEST 1 VIEW (PORTABLE) 12/08/2024 REASON FOR EXAM: DYSPNEA, INCREASED O2 SUPPLEMENTATION. TECHNIQUE: Frontal view of the chest. COMPARISON: 12/05/2024. FINDINGS: Right PICC line is in good position with its tip at the atriocaval junction. Increased central pulmonary venous congestion. Increased interstitial pulmonary congestion. There is no demonstrated pleural abnormality. Enlarged cardiac silhouette. Normal mediastinum and cristal. Normal visualized pulmonary arteries. Atheromatous plaques of the visualized aortic arch and descending thoracic aorta. Diffuse spondylosis of the visualized thoracic spine. Normal visualized ribs, clavicles. Degenerative joint disease. There is no demonstrated abnormality of the visualized soft tissue structures of the upper abdomen. RAD/Chest 1 View (Portable) IMPRESSION: Right PICC line is in good position with its tip at the atriocaval junction. Increased central pulmonary venous congestion. Increased interstitial pulmonary congestion. There is no demonstrated pleural abnormality. Enlarged cardiac silhouette. Reading Location: [facility]
[2024-12-08 05:25] VITALS: BMI 28.5
[2024-12-08 05:39] LABS: Hematocrit 24.4 % (37-47); Hemoglobin 7.4 g/dL (12.0-15.0); Immature Granulocytes Count 0.090 X10^3/uL (0.0-0.0); Mean Corp Hgb Conc 30.3 g/dL (32-36); Mean Corpuscular Volume 89.4 fL (81-99); Mean Platelet Vol. 9.9 fl (6.2-12.0); NRBC Flagged by Analyzer 0 % (0-5); Platelet Count 227 K/mm3 (150-450); RBC Distribution Width CV 14.4 % (11.6-14.6); RBC Distribution Width SD 46.5 fl (35.1-43.9); Red Blood Count 2.73 M/mm3 (4.2-5.4); White Blood Count 6.2 K/mm3 (4.4-11.0)
[2024-12-08 06:03] LABS: Pro- Brain NATRIURETIC PEPTIDE 8974 pg/mL (<=900)
[2024-12-08 06:04] LABS: Anion Gap 13 (5-15); BUN 26 mg/dL (4-19); BUN/Creat Ratio 22.5 RATIO (10-20); Calcium,Total 8.9 mg/dL (7.6-11.0); Carbon Dioxide 19.6 mmol/L (21.0-32.0); Chloride 113 mmol/L (98-108); Estimated Creatinine Clearance 45.34 ml/min (50-250); Glucose 118 mg/dL (70-99); Potassium 4.2 mmol/L (3.3-5.1)
[2024-12-08 06:56] VITALS: BP 142/58; PULSE 79
--- NOTE | 2024-12-08 07:38 | PN.HOSP_ITS ---
Reason for Visit Chief Complaint: Acute respiratory failure, UTI Subjective Subjective Patient was transferred from intensive care unit down to progressive care unit. Still requiring supplemental oxygen currently at 5 L flow per minute also has a persistent cough. Hemoglobin down to 7.4 Objective Data Objective Data Vital Signs: Vital Signs Temp Pulse Resp BP Pulse Ox O2 Del Method O2 Flow Rate 98.6 F 79 18 142/58 H 92 Nasal Cannula 5 12/08/24 03:16 12/08/24 06:56 12/08/24 03:16 12/08/24 06:56 12/08/24 03:16 12/08/24 07:32 12/08/24 03:16 FiO2 21 12/06/24 07:01 Oxygen Flow Rate (L/min) 5 Oxygen Delivery Method Nasal Cannula Weight: 73.2 kg Body Mass Index (BMI) 28.5 Intake & Output: Intake and Output for Last 24 Hours 12/06/24 12/07/24 12/08/24 23:59 23:59 23:59 Intake Total 974.00 / 974.00 640 / 640 Output Total 850 / 850 550 / 550 Balance 124.00 / 124.00 90 / 90 Lab / Micro Data 12/08/24 04:50 12/08/24 04:50 Labs: Laboratory Results - last 24 hr 12/07/24 11:58: POC Glucose 162 H 12/07/24 16:07: POC Glucose 149 H 12/07/24 21:41: POC Glucose 121 H 12/08/24 04:50: WBC 6.2, RBC 2.73 L, Hgb 7.4 L, Hct 24.4 L, MCV 89.4, MCH 27.1, MCHC 30.3 L, RDW Std Deviation 46.5 H, RDW Coeff of Nuno 14.4, Plt Count 227, MPV 9.9, Immature Gran % (Auto) 1.500 H, Neut % (Auto) 73.8 H, Lymph % (Auto) 11.7 L , Jackson % (Auto) 8.1, Eos % (Auto) 4.4, Baso % (Auto) 0.5, Absolute Neuts (auto) 4.6, Absolute Lymphs (auto) 0.72 L, Nucleated RBC % 0, Sodium 145, Potassium 4.2, Chloride 113 H, Carbon Dioxide 19.6 L, Anion Gap 13, BUN 26 H, Creatinine 1.17, Estim Creat Clear Calc 45.34 L, Est GFR (MDRD) Non-Af 51 L, BUN/Creatinine Ratio 22.5 H, Glucose 118 H, Calcium 8.9, NT pro BNP II 8974 H Micro: Microbiology 12/03/24 20:57 Urine Catheter - Catheter Urine Culture - Final Escherichia coli Gram positive joyce 12/03/24 22:45 Sputum, Tracheal Aspirate Gram Stain - Final 12/03/24 22:45 Sputum, Tracheal Aspirate Respiratory Culture - Final Mixed normal respiratory alma rosa. No Streptococcus pneumoniae, beta-hemolytic Streptococcus or Staphylococcus aureus isolated. 12/03/24 23:45 Blood Culture (Wb) - Anticubital Right Blood Culture - Preliminary No growth in 48 hours. 12/03/24 23:45 Blood Culture (Wb) - Anticubital Left Blood Culture - Preliminary No growth in 48 hours. 12/04/24 09:43 Mucosa - Nasopharyngeal SARS-CoV-2, Influenza & RSV (PCR) - Final Radiography Diagnostic Testing: Radiology Impression Chest X-Ray 12/08/24 05:05 IMPRESSION: Right PICC line is in good position with its tip at the atriocaval junction. Increased central pulmonary venous congestion. Increased interstitial pulmonary congestion. There is no demonstrated pleural abnormality. Enlarged cardiac silhouette. Reading Location: [place] [id number] Physical Exam Narrative GENERAL: Patient in no apparent distress HEENT: Atraumatic; normocephalic EYES; Anicteric, Normal Conjunctiva NECK; supple, normal thyroid, RESPIRATORY: Diminished to auscultation CARDIOVASCULAR: Regular S1 S2, GI: soft, normoactive bowel sounds, : No Renal angle tenderness; EXTREMITIES: No edema, no clubbing, MUSCULOSKELETAL: no muscle wasting NEURO: Awake; no lateralizing signs. SKIN: No Rash PSYCH; Flat affect Assessment & Plan Assessment/Plan (1) Acute UTI: (2) DM type 2 (diabetes mellitus, type 2): (3) Hypertension: (4) Hyperlipidemia: (5) Acute respiratory failure: PLAN: Plan Patient is a 64-year-old female who presented to the emergency department with abdominal pain with associated dysuria. She apparently developed dyspnea diaphoresis and became unresponsive. Imaging intubation was done. Subsequent CT demonstrated Bilateral multifocal ground-glass density/airspace consolidations more prominent in the lower lobes, probably multifocal pneumonia. Admitted to the intensive care unit for subsequent management 1. Acute hypoxic and hypercapnic respiratory failure ? Patient underwent emergency intubation in the ED subsequently admitted to the intensive care unit. Vent management deferred to intelligence analyst/pulmonary medicine ? 12/06/2024; patient was weaned off the vent this a.m. Scheduled to undergo dysphagia screen ? 12/07/2024. Patient remains on oxygen via nasal cannula currently 2 L flow per minute. She did feel her speech and swallow eval the day prior plan is to undergo formal evaluation by speech therapy ? 12/08/2024; patient down to 5 L flow per minute. Plan is for patient to be assessed for home oxygen prior to being discharged 2. Multifocal pneumonia with suspected gram-positive organisms ? Patient managed with broad-spectrum antibiotic therapy in addition to being intubated for ventilatory support ? 12/06/2024; patient was weaned off the vent this a.m. Cultures so far negative to date. ? 12/08/2024; patient WBC count down to 6.2. Cultures so far negative to date 3. Acute pyelonephritis ? Imaging studies obtained on admission heterogeneous nephrogram of the left kidney, possibly acute pyelonephritis without obstructing stone or drainable abscess.. Blood and urine cultures sent on admission results still pending ? 12/06/2024; urine culture still pending ? 12/07/2024; urine cultures came back positive for E. coli and nonsignificant growth of gram-positive joyce. Remains on appropriate antibiotic 4. Septic shock ? Secondary to combination of pneumonia and UTI. Patient was managed per protocol with IV fluid resuscitation broad-spectrum antibiotic therapy after cultures have been sent. Patient remains on pressors with Levophed ? 12/07/2024; patient has been weaned off Levophed 5. Anemia ? Secondary to chronic disorder monitoring H&H and transfuse if patient becomes symptomatic or hemoglobin falls below 7 ? 12/06/2024; patient hemoglobin continues to drop ordered iron studies and patient was typed and screened ? 12/07/2024; hemoglobin this a.m. 7.8. Iron studies obtained the day prior did demonstrate severe iron deficiency anemia patient started on parenteral iron. Patient will need to undergo evaluation as outpatient by GI 6. Acute kidney injury ? Patient baseline creatinine from 12/23/2021 was 1.02 creatinine on admission was 1.53. Patient currently on IV fluids as well as pressor support with daily monitoring of BMPs. Consult was placed to nephrology ? 12/06/2024; patient was seen in consultation by Dr. Boyd with nephrology notes and recommendations reviewed ? 09/07/2024; patient kidney function continues to improve creatinine down to 1.17 7. Dyslipidemia ? Patient is on atorvastatin plan is to resume once patient is weaned off the vent ? 12/07/2024; patient statin therapy resumed 8. Diabetes mellitus type 2 ? Patient is on glipizide and metformin as well as Actos held placed on Accu- Cheks with sliding scale coverage 9. Essential hypertension ? Patient antihypertensives on hold given her low blood pressure 10. Gastritis ? Patient placed on PPI 11. Renal mass Imaging studies did show complex lesion is noted in the upper pole of the left kidney measuring 5.3 x 4.9 cm, suspicious for neoplasm, not present on the prior exam. Plan is for patient to undergo further evaluation once weaned off the vent. ? 12/06/2024; plan is for patient to undergo dedicated MRI of the kidney 12. Constipation ? CT of the abdomen did show Moderate amount of fecal residue in the large bowels, probably constipation with associated minimal stercoral colitis. This probably explained patient abdominal pain on presentation plan is to treat symptomatically 13. Hypokalemia ? Corrected per protocol repeat BMP ordered in a.m. for subsequent eval 14. Mild hypernatremia ? Will adjust patient IV fluid with repeat BMP in a.m. 15. DVT prophylaxis ? Low molecular weight Time spent in the patient's overall evaluation,decision-making process, review of diagnostic data, adjustment of management, discussion with other providers, nursing nursing and ancillary staff involved in patient's care documentation, 40 minutes Charges/Coding Visit Charges Inpatient E&M: 99663 Subs Hosp L2
[2024-12-08 08:14] VITALS: BP 173/74; PULSE 90; RESP 20; TEMP 36.6; O2SAT 94
[2024-12-08] MEDS: buPROPion (XL) 150 MG TABLET.XL PO (08:28)
[2024-12-08 11:38] VITALS: BP 134/59; PULSE 75
[2024-12-08 15:00] VITALS: BP 140/78; PULSE 80; RESP 17; TEMP 36.7; O2SAT 97
[2024-12-08 21:05] VITALS: BP 118/60; PULSE 80; RESP 18; TEMP 36.5; O2SAT 100
[2024-12-09 03:31] VITALS: BMI 28.3
[2024-12-09 03:59] VITALS: BP 154/70; PULSE 80; RESP 16; TEMP 36.4; O2SAT 96
[2024-12-09 07:18] LABS: Hematocrit 25.5 % (37-47); Hemoglobin 8.1 g/dL (12.0-15.0); Immature Granulocytes Count 0.090 X10^3/uL (0.0-0.0); Mean Corp Hgb Conc 31.8 g/dL (32-36); Mean Corpuscular Volume 86.4 fL (81-99); Mean Platelet Vol. 9.6 fl (6.2-12.0); NRBC Flagged by Analyzer 0 % (0-5); Platelet Count 227 K/mm3 (150-450); RBC Distribution Width CV 13.8 % (11.6-14.6); RBC Distribution Width SD 43.4 fl (35.1-43.9); Red Blood Count 2.95 M/mm3 (4.2-5.4); White Blood Count 6.1 K/mm3 (4.4-11.0)
--- NOTE | 2024-12-09 07:54 | PN.HOSP_ITS ---
Reason for Visit Chief Complaint: Acute respiratory failure, UTI Subjective Subjective Patient seen has been weaned off oxygen and currently remains on room air with patient being medically stable order was placed for patient to undergo MRI renal protocol to assess her kidney mass Objective Data Objective Data Vital Signs: Vital Signs Temp Pulse Resp BP Pulse Ox O2 Del Method O2 Flow Rate 97.5 F L 80 16 154/70 H 96 Room Air 2 12/09/24 03:59 12/09/24 03:59 12/09/24 03:59 12/09/24 03:59 12/09/24 03:59 12/09/24 07:39 12/09/24 07:38 FiO2 21 12/06/24 07:01 Oxygen Flow Rate (L/min) 2 Oxygen Delivery Method Room Air Weight: 72.6 kg Body Mass Index (BMI) 28.3 Intake & Output: Intake and Output for Last 24 Hours 12/07/24 12/08/24 12/09/24 23:59 23:59 23:59 Intake Total 640 / 640 50 / 50 Output Total 550 / 550 Balance 90 / 90 50 / 50 Lab / Micro Data 12/09/24 06:53 12/09/24 06:53 Labs: Laboratory Results - last 24 hr 12/08/24 11:18: POC Glucose 140 H 12/08/24 17:34: POC Glucose 173 H 12/08/24 22:03: POC Glucose 190 H 12/09/24 06:26: POC Glucose 129 H 12/09/24 06:53: WBC 6.1, RBC 2.95 L, Hgb 8.1 L, Hct 25.5 L, MCV 86.4, MCH 27.5, MCHC 31.8 L, RDW Std Deviation 43.4, RDW Coeff of Nuno 13.8, Plt Count 227, MPV 9.6, Immature Gran % (Auto) 1.500 H, Neut % (Auto) 66.5, Lymph % (Auto) 14.3 L, Nobles % (Auto) 9.5, Eos % (Auto) 7.7 H, Baso % (Auto) 0.5, Absolute Neuts (auto) 4.1, Absolute Lymphs (auto) 0.87, Nucleated RBC % 0 Micro: Microbiology 12/03/24 23:45 Blood Culture (Wb) - Anticubital Left Blood Culture - Final No growth in 5 days. 12/03/24 23:45 Blood Culture (Wb) - Anticubital Right Blood Culture - Final No growth in 5 days. 12/03/24 20:57 Urine Catheter - Catheter Urine Culture - Final Escherichia coli Gram positive joyce 12/03/24 22:45 Sputum, Tracheal Aspirate Gram Stain - Final 12/03/24 22:45 Sputum, Tracheal Aspirate Respiratory Culture - Final Mixed normal respiratory alma rosa. No Streptococcus pneumoniae, beta-hemolytic Streptococcus or Staphylococcus aureus isolated. 12/04/24 09:43 Mucosa - Nasopharyngeal SARS-CoV-2, Influenza & RSV (PCR) - Final Physical Exam Narrative GENERAL: Patient in no apparent distress HEENT: Atraumatic; normocephalic EYES; Anicteric, Normal Conjunctiva NECK; supple, normal thyroid, RESPIRATORY: Diminished to auscultation CARDIOVASCULAR: Regular S1 S2, GI: soft, normoactive bowel sounds, : No Renal angle tenderness; EXTREMITIES: No edema, no clubbing, MUSCULOSKELETAL: no muscle wasting NEURO: Awake; no lateralizing signs. SKIN: No Rash PSYCH; Flat affect Assessment & Plan Assessment/Plan (1) Acute UTI: (2) DM type 2 (diabetes mellitus, type 2): (3) Hypertension: (4) Hyperlipidemia: (5) Acute respiratory failure: PLAN: Plan Patient is a 64-year-old female who presented to the emergency department with abdominal pain with associated dysuria. She apparently developed dyspnea diaphoresis and became unresponsive. Imaging intubation was done. Subsequent CT demonstrated Bilateral multifocal ground-glass density/airspace consolidations more prominent in the lower lobes, probably multifocal pneumonia. Admitted to the intensive care unit for subsequent management 1. Acute hypoxic and hypercapnic respiratory failure ? Patient underwent emergency intubation in the ED subsequently admitted to the intensive care unit. Vent management deferred to dental treatment coordinator/pulmonary medicine ? 12/06/2024; patient was weaned off the vent this a.m. Scheduled to undergo dysphagia screen ? 12/07/2024. Patient remains on oxygen via nasal cannula currently 2 L flow per minute. She did feel her speech and swallow eval the day prior plan is to undergo formal evaluation by speech therapy ? 12/08/2024; patient down to 5 L flow per minute. Plan is for patient to be assessed for home oxygen prior to being discharged ? 12/09/2024; patient has been weaned off oxygen and currently remains on room air 2. Multifocal pneumonia with suspected gram-positive organisms ? Patient managed with broad-spectrum antibiotic therapy in addition to being intubated for ventilatory support ? 12/06/2024; patient was weaned off the vent this a.m. Cultures so far negative to date. ? 12/08/2024; patient WBC count down to 6.2. Cultures so far negative to date 3. Acute pyelonephritis ? Imaging studies obtained on admission heterogeneous nephrogram of the left kidney, possibly acute pyelonephritis without obstructing stone or drainable abscess.. Blood and urine cultures sent on admission results still pending ? 12/06/2024; urine culture still pending ? 12/07/2024; urine cultures came back positive for E. coli and nonsignificant growth of gram-positive joyce. Remains on appropriate antibiotic 4. Septic shock ? Secondary to combination of pneumonia and UTI. Patient was managed per protocol with IV fluid resuscitation broad-spectrum antibiotic therapy after cultures have been sent. Patient remains on pressors with Levophed ? 12/07/2024; patient has been weaned off Levophed 5. Anemia ? Secondary to chronic disorder monitoring H&H and transfuse if patient becomes symptomatic or hemoglobin falls below 7 ? 12/06/2024; patient hemoglobin continues to drop ordered iron studies and patient was typed and screened ? 12/07/2024; hemoglobin this a.m. 7.8. Iron studies obtained the day prior did demonstrate severe iron deficiency anemia patient started on parenteral iron. Patient will need to undergo evaluation as outpatient by GI 6. Acute kidney injury ? Patient baseline creatinine from 12/23/2021 was 1.02 creatinine on admission was 1.53. Patient currently on IV fluids as well as pressor support with daily monitoring of BMPs. Consult was placed to nephrology ? 12/06/2024; patient was seen in consultation by Dr. Boyd with nephrology notes and recommendations reviewed ? 09/07/2024; patient kidney function continues to improve creatinine down to 1.17 ? 12/09/2024; acute kidney injury resolved 7. Dyslipidemia ? Patient is on atorvastatin plan is to resume once patient is weaned off the vent ? 12/07/2024; patient statin therapy resumed 8. Diabetes mellitus type 2 ? Patient is on glipizide and metformin as well as Actos held placed on Accu- Cheks with sliding scale coverage 9. Essential hypertension ? Patient antihypertensives on hold given her low blood pressure 10. Gastritis ? Patient placed on PPI 11. Renal mass Imaging studies did show complex lesion is noted in the upper pole of the left kidney measuring 5.3 x 4.9 cm, suspicious for neoplasm, not present on the prior exam. Plan is for patient to undergo further evaluation once weaned off the vent. ? 12/06/2024; plan is for patient to undergo dedicated MRI of the kidney ? 12/09/2024; ordered MRI of the kidneys for a.m. prior to discharge 12. Constipation ? CT of the abdomen did show Moderate amount of fecal residue in the large bowels, probably constipation with associated minimal stercoral colitis. This probably explained patient abdominal pain on presentation plan is to treat symptomatically 13. Hypokalemia ? Corrected per protocol repeat BMP ordered in a.m. for subsequent eval 14. Mild hypernatremia ? Will adjust patient IV fluid with repeat BMP in a.m. 15. DVT prophylaxis ? Low molecular weight Time spent in the patient's overall evaluation,decision-making process, review of diagnostic data, adjustment of management, discussion with other providers, nursing nursing and ancillary staff involved in patient's care documentation, 35 minutes Charges/Coding Visit Charges Inpatient E&M: 20180 Subs Hosp L2
[2024-12-09 08:12] LABS: Anion Gap 13 (5-15); BUN 25 mg/dL (4-19); BUN/Creat Ratio 22.5 RATIO (10-20); Calcium,Total 8.7 mg/dL (7.6-11.0); Carbon Dioxide 22.6 mmol/L (21.0-32.0); Chloride 104 mmol/L (98-108); Estimated Creatinine Clearance 48.47 ml/min (50-250); Glucose 133 mg/dL (70-99); Potassium 3.3 mmol/L (3.3-5.1)
[2024-12-09] MEDS: buPROPion (XL) 150 MG TABLET.XL PO (09:43)
[2024-12-09 09:49] VITALS: BP 90/75; PULSE 88; RESP 16; TEMP 36.4; O2SAT 92
[2024-12-09 15:05] VITALS: BP 104/79; PULSE 80; RESP 18; TEMP 36.3; O2SAT 97
[2024-12-09 21:00] VITALS: BP 136/59; PULSE 73; RESP 17; TEMP 36.8; O2SAT 95
[2024-12-10 03:00] VITALS: BP 145/64; PULSE 72; RESP 14; TEMP 36.9; O2SAT 94
[2024-12-10 03:01] VITALS: BMI 28.0
[2024-12-10 08:12] VITALS: BP 147/60; PULSE 70; RESP 14; TEMP 36.8; O2SAT 94
[2024-12-10 08:14] LABS: Hematocrit 27.3 % (37-47); Hemoglobin 8.9 g/dL (12.0-15.0); Immature Granulocytes Count 0.080 X10^3/uL (0.0-0.0); Mean Corp Hgb Conc 32.6 g/dL (32-36); Mean Corpuscular Volume 83.5 fL (81-99); Mean Platelet Vol. 9.2 fl (6.2-12.0); NRBC Flagged by Analyzer 0 % (0-5); Platelet Count 221 K/mm3 (150-450); RBC Distribution Width CV 13.6 % (11.6-14.6); RBC Distribution Width SD 41.5 fl (35.1-43.9); Red Blood Count 3.27 M/mm3 (4.2-5.4); White Blood Count 5.6 K/mm3 (4.4-11.0)
[2024-12-10 08:40] LABS: Anion Gap 10 (5-15); BUN 17 mg/dL (4-19); BUN/Creat Ratio 17.2 RATIO (10-20); Calcium,Total 9.0 mg/dL (7.6-11.0); Carbon Dioxide 25.6 mmol/L (21.0-32.0); Chloride 105 mmol/L (98-108); Estimated Creatinine Clearance 53.16 ml/min (50-250); Glucose 178 mg/dL (70-99); Potassium 3.6 mmol/L (3.3-5.1)
[2024-12-10] MEDS: buPROPion (XL) 150 MG TABLET.XL PO (09:25)
--- NOTE | 2024-12-10 09:36 | MRI_ITS ---
PROCEDURE: MRI ABD WITH AND W/O CONTRAST 12/10/2024 REASON FOR EXAM: RENAL MASS TECHNIQUE: Procedure Code: MRIABDWW Modality: MR Procedure: MRI ABD WITH AND W/O CONTRAST Multiplanar and multisequence images were obtained. CONTRAST: Clariscan VOLUME: 14 mL COMPARISON: December 03, 2024 CT FINDINGS: Image quality is degraded by wrap artifact and respiratory motion. Liver: No evidence of diffuse fatty liver or iron deposition. Liver morphology is non cirrhotic. Mild atrophy anterior segment right hepatic lobe with colonic interposition present. Biliary: Gallbladder is normal. No biliary duct dilation. Pancreas: Normal Spleen: Normal. Small splenule. Adrenals: Normal Kidneys: No renal mass is seen on the right side. Tiny parapelvic cysts are seen. These are benign. Conversely, on the left side there is some pararenal and perirenal stranding present. The heterogeneous nephrogram shown on prior CT involving much of the upper pole is again noted. Small cysts are seen associated with the upper pole.. 1 is medial measuring 9 mm another more lateral measuring 8 mm. Another slightly closer to the midpole is 14 mm and another more lateral is 13 mm. No collecting system dilation is identified. Peritoneum / Retroperitoneum: No intra-abdominal collection or mass is seen. Left para-aortic lymph node enlargement is seen. The most caudal lymph node is 2 cm another directly adjacent slightly more superior is 17 mm and 1 of the most superior is 16 mm. Retroaortic left renal vein is present. Lymph Nodes: No intra-abdominal lymph nodes are abnormal. Major Vessels: Atherosclerosis without aneurysm. Bones: Unremarkable MRI/MRI Abd WITH and W/O Contrast IMPRESSION: As previously described on prior CT the heterogeneous appearance of the nephrog alex of the superior pole of the left kidney is associated with a few small cystic foci. Pyelonephritis with microabscesses sh ould be considered. Correlate with history, physical, urinalysis. Underlying neoplasm is favored less. This could be re-e valuated after treatment in 3 months to ensure resolution and exclude a mass.. Abnormal left para-aortic lymph nodes. Reactive or less likely neoplastic. Th isamar can be evaluated at follow-up. No collecting system dilation. Reading Location: [id number]
[2024-12-10 11:00] VITALS: O2SAT 93; O2SAT 97
--- NOTE | 2024-12-10 12:55 | PCM.DC.SUM ---
Providers Date of Admission: 12/04/24 Primary Care Physician: Dr. Christiano Ramirez MD Consultations 12/04/24 02:20 Consult: Manager Client Support / Pulmonary Medicine Routine Consulting Provider: Intensivists/Pulmonary Med Reason for Consult: ICU management EMERGENT Consult: Yes MD Notified: Yes Date Notified: 12/04/24 Time Notified: 01:16 Method of Notification: Text 12/04/24 08:12 Consult: Onc/Wound/shagger Routine Comment: Reason for Consult:: Foot Wound 12/05/24 07:43 Consult: Nephrology Routine Consulting Provider: Silvano Boyd Reason for Consult: ANTONIO EMERGENT Consult: No MD Notified: Yes Date Notified: 12/05/24 Time Notified: 07:44 Method of Notification: Answering Service Reason For Visit: ACUTE RESPIRATORY FAILURE UTI Diagnosis Discharge Diagnosis (1) Acute UTI: Status: Acute Code(s): N39.0 - Urinary tract infection, site not specified (2) DM type 2 (diabetes mellitus, type 2): Status: Chronic Code(s): E11.9 - Type 2 diabetes mellitus without complications (3) Hypertension: Status: Chronic Code(s): I10 - Essential (primary) hypertension (4) Hyperlipidemia: Status: Chronic Code(s): E78.5 - Hyperlipidemia, unspecified (5) Acute respiratory failure: Status: Acute Code(s): J96.00 - Acute respiratory failure, unspecified whether with hypoxia or hypercapnia Medications at Discharge Home Medications aspirin 81 mg chewable tablet 81 mg PO DAILY@0800 Blood thinner 12/27/15 Held on 12/10/24. Instructions: Until you are seen by urology ferrous sulfate 325 mg (65 mg iron) tablet 325 mg PO DAILY 01/01/22 hydrocodone-acetaminophen 5-325mg 5mg-325mg 1 tab PO Q6H 3 days #12 tabs 01/08/22 atorvastatin 40 mg tablet 40 mg PO QHS 12/03/24 bupropion HCl 150 mg 24 hr tablet, extended release 150 mg PO DAILY 12/03/24 ezetimibe 10 mg tablet 10 mg PO DAILY 12/03/24 glipizide 2.5 mg tablet, extended release 24 hr 2.5 mg PO DAILY 12/03/24 metformin 1,000 mg tablet 1,000 mg PO BID 09/29/25 pioglitazone 30 mg tablet 30 mg PO DAILY 12/03/24 amlodipine 10 mg tablet 10 mg PO DAILY #30 tabs 12/10/24 cephalexin 500 mg capsule 500 mg PO Q6 #8 caps 12/10/24 Weight / BMI Weight Weight: 72 kg Body Mass Index (BMI) 28.0 ABG / Lab / Microbiology Data 12/10/24 08:02 12/10/24 08:02 Laboratory: Laboratory Results - last 24 hr 12/09/24 16:46: POC Glucose 251 H 12/09/24 20:19: POC Glucose 215 H 12/10/24 06:23: POC Glucose 166 H 12/10/24 08:02: WBC 5.6, RBC 3.27 L, Hgb 8.9 L, Hct 27.3 L, MCV 83.5, MCH 27.2, MCHC 32.6, RDW Std Deviation 41.5, RDW Coeff of Nuno 13.6, Plt Count 221, MPV 9.2, Immature Gran % (Auto) 1.400 H, Neut % (Auto) 65.6, Lymph % (Auto) 16.4 L, Douglas % (Auto) 9.7, Eos % (Auto) 6.7 H, Baso % (Auto) 0.2, Absolute Neuts (auto) 3.7, Absolute Lymphs (auto) 0.91, Nucleated RBC % 0, Sodium 141, Potassium 3.6, Chloride 105, Carbon Dioxide 25.6, Anion Gap 10, BUN 17, Creatinine 0.99, Estim Creat Clear Calc 53.16, Est GFR (MDRD) Non-Af 63, BUN/Creatinine Ratio 17.2, Glucose 178 H, Calcium 9.0 12/10/24 12:23: POC Glucose 229 H Microbiology: Microbiology 12/03/24 23:45 Blood Culture (Wb) - Anticubital Left Blood Culture - Final No growth in 5 days. 12/03/24 23:45 Blood Culture (Wb) - Anticubital Right Blood Culture - Final No growth in 5 days. 12/03/24 20:57 Urine Catheter - Catheter Urine Culture - Final Escherichia coli Gram positive joyce 12/03/24 22:45 Sputum, Tracheal Aspirate Gram Stain - Final 12/03/24 22:45 Sputum, Tracheal Aspirate Respiratory Culture - Final Mixed normal respiratory alma rosa. No Streptococcus pneumoniae, beta-hemolytic Streptococcus or Staphylococcus aureus isolated. 12/04/24 09:43 Mucosa - Nasopharyngeal SARS-CoV-2, Influenza & RSV (PCR) - Final D/C Instructions Discharge Activity: Return to Normal Activity DC O2, CPAP, BIPAP Needs Home O2 Discharge instructions: No DC home with Oxygen: No Meaningful Use Info Meaningful Use Meaningful Use Diagnoses (Choose all that apply): None applicable Discharge Plan Admission Admit Date/Time: 12/04/24 01:13 Attending Provider: Li Parks Primary Care Provider: Christiano Ramirez Consulting Providers: Clifton Alexander; Chuy Narvaez; Silvano Boyd; David Bryant Instructions Additional Instructions / Restrictions: 1. Please follow-up with urology as noted below for the mass on your left kidney 2. Please complete antibiotics as ordered Discharge Orders/Prescriptions Prescriptions: New amlodipine 10 mg Tablet 10 mg PO DAILY Qty: 30 1RF cephalexin 500 mg Capsule 500 mg PO Q6 Qty: 8 0RF Continued ferrous sulfate 325 MG tablet 325 mg PO DAILY hydrocodone-acetaminophen 5-325 mg tablet 1 tab PO Q6H 3 Days Qty: 12 0RF atorvastatin 40 mg tablet 40 mg PO QHS glipizide 2.5 mg tablet extended release 24hr 2.5 mg PO DAILY metformin 1,000 mg tablet 1,000 mg PO BID pioglitazone 30 mg tablet 30 mg PO DAILY ezetimibe 10 mg tablet 10 mg PO DAILY bupropion HCl 150 mg tablet extended release 24 hr 150 mg PO DAILY Held aspirin 81 MG tablet,chewable 81 mg PO DAILY@0800 Hold Instructions: Until you are seen by urology Referrals / Follow Up: Wilfredo Tuttle MD [Med Staff - Active Staff, Urology] Christiano Ramirez MD [Primary Care Provider, Internal Medicine] - Within 1 Week Referral Note: Please call for an appointment to be seen at their soonest availability preferentially in the next week Disposition Disposition (needs filled in before D/C Order can be placed): Home Health Service Charges/Coding Visit Charges Inpatient E&M: 57831 Disch Hosp >30min
--- NOTE | 2024-12-10 13:18 | CASEMGMT ---
Patient has order for discharge. JOSSELYN STROUD called [facility] to confirm start of care for tomorrow. [facility] confirmed [facility] to start tomorrow. JOSSELYN STROUD in to update patient, patient voiced understanding, daughter at bedside. Patient and daughter denies further needs or concenrs at discharge. Patient and daughter had no further questions.
--- NOTE | 2024-12-10 13:19 | PN.HOSP_ITS ---
Reason for Visit Chief Complaint: Acute respiratory failure, UTI Subjective Subjective Patient states overall she is feeling much better. Anxious to go home and initially the plan was to discharge home however upon further review her echocardiogram was abnormal. I discussed this with the patient and her daughter. Will plan for stress test tomorrow morning with ongoing plans dependent on this. We did discuss the results of her MRI and this likely being infectious. She will need urological follow-up. Objective Data Objective Data Vital Signs: Vital Signs Temp Pulse Resp BP Pulse Ox O2 Del Method O2 Flow Rate 98.3 F 70 14 147/60 H 94 Room Air 2 12/10/24 08:12 12/10/24 08:12 12/10/24 08:12 12/10/24 08:12 12/10/24 08:12 12/10/24 08:44 12/09/24 14:00 FiO2 21 12/06/24 07:01 Oxygen Flow Rate (L/min) 2 Oxygen Delivery Method Room Air Weight: 72 kg Body Mass Index (BMI) 28.0 Intake & Output: Intake and Output for Last 24 Hours 12/08/24 12/09/24 12/10/24 23:59 23:59 23:59 Intake Total 50 / 50 850 / 850 Balance 50 / 50 850 / 850 Lab / Micro Data 12/10/24 08:02 12/10/24 08:02 Labs: Laboratory Results - last 24 hr 12/09/24 16:46: POC Glucose 251 H 12/09/24 20:19: POC Glucose 215 H 12/10/24 06:23: POC Glucose 166 H 12/10/24 08:02: WBC 5.6, RBC 3.27 L, Hgb 8.9 L, Hct 27.3 L, MCV 83.5, MCH 27.2, MCHC 32.6, RDW Std Deviation 41.5, RDW Coeff of Nuno 13.6, Plt Count 221, MPV 9.2, Immature Gran % (Auto) 1.400 H, Neut % (Auto) 65.6, Lymph % (Auto) 16.4 L, [place] % (Auto) 9.7, Eos % (Auto) 6.7 H, Baso % (Auto) 0.2, Absolute Neuts (auto) 3.7, Absolute Lymphs (auto) 0.91, Nucleated RBC % 0, Sodium 141, Potassium 3.6, Chloride 105, Carbon Dioxide 25.6, Anion Gap 10, BUN 17, Creatinine 0.99, Estim Creat Clear Calc 53.16, Est GFR (MDRD) Non-Af 63, BUN/Creatinine Ratio 17.2, G lucose 178 H, Calcium 9.0 12/10/24 12:23: POC Glucose 229 H Micro: Microbiology 12/03/24 23:45 Blood Culture (Wb) - Anticubital Left Blood Culture - Final No growth in 5 days. 12/03/24 23:45 Blood Culture (Wb) - Anticubital Right Blood Culture - Final No growth in 5 days. 12/03/24 20:57 Urine Catheter - Catheter Urine Culture - Final Escherichia coli Gram positive joyce 12/03/24 22:45 Sputum, Tracheal Aspirate Gram Stain - Final 12/03/24 22:45 Sputum, Tracheal Aspirate Respiratory Culture - Final Mixed normal respiratory alma rosa. No Streptococcus pneumoniae, beta-hemolytic Streptococcus or Staphylococcus aureus isolated. 12/04/24 09:43 Mucosa - Nasopharyngeal SARS-CoV-2, Influenza & RSV (PCR) - Final Physical Exam Const alert, oriented x3, no apparent distress and well nourished; Negative for healthy appearing Constitutional Narrative: Overweight, upper middle-age white female, sitting up in a chair at the bedside, watching television, appears older than stated age, appears comfortable and nontoxic HEENT head/scalp atraumatic and moist oral mucous membranes HEENT Narrative: Edentulous, no thrush, Mallampati 2 Head and Scalp: normocephalic Eyes EOMs intact bilaterally; Negative for conjunctivae normal Eyes Narrative: Mild conjunctiva pallor bilaterally, no scleral icterus Neck supple Neck Narrative: Trachea midline, no thyroid enlargement Resp normal respiratory effort, no retractions, no use of accessory muscles and clear to auscultation bilaterally Auscultation: Negative for crackles, rhonchi or wheezes Cardio regular rate, regular rhythm, S1 normal heart sound, S2 normal heart sound, no murmurs, no rub, no gallops and no clicks GI normal to inspection, nondistended, normoactive bowel sounds, soft to palpation and non-tender Extremity no clubbing, cyanosis or edema Extremity Narrative: 2+ pedal and radial pulses Skin Skin Narrative: No significant lesions, skin is slightly pale Neuro moves all extremities and no focal motor deficits Speech: speech normal Psych affect normal Psych Narrative: Very pleasant, eye contact is good and patient interacts appropriately Assessment & Plan Assessment/Plan (1) ANTONIO (acute kidney injury): (2) Acute respiratory failure: (3) Acute UTI: (4) Type 1 non-ST elevation myocardial infarction (NSTEMI): (5) Cardiomyopathy: (6) DM type 2 (diabetes mellitus, type 2): (7) Pyelonephritis of left kidney: PLAN: Plan Septic shock secondary to acute pyelonephritis/urinary tract infection secondary to E. coli - MRI is consistent with microabscesses of the left kidney - Will refer to urology as patient will need 3-month follow-up for resolution - Continue antibiotics and complete for complicated UTI - Will discuss with ID briefly to see what their recommendations are given the abnormal findings on the MRI - Sepsis/shock has resolved Acute hypoxic and hypercapnic respiratory failure secondary to flash pulmonary edema with acute HFrEF - Initially thought to be related to multifocal pneumonia however patient with elevated troponin and BNP - Suspect possible cardiac event as echo shows depressed EF with wall motion abnormality and patient had troponin elevation - Hypoxia has resolved and patient now on room air both at rest and with exertion - Continue to monitor may need low-dose diuretics at discharge NSTEMI - Patient with significant troponin elevation and abnormal echo with wall motion abnormality - Check A1c - check lipid panel - Start aspirin 81 mg daily - Continue home atorvastatin -Continue home Zetia - Stress test ordered for a.m. - Will repeat a.m. troponin Cardiomyopathy - Type unknown - Ischemic workup in progress - Echocardiogram does show depressed EF at 45% with previous echo from 2013 being 60% and patient has regional wall motion abnormalities Anemia - Stable and chronic - No signs of acute bleeding - Continue to monitor CBC - Continue home iron supplementation ANTONIO - Resolved DM-2 - A1c is 6.8 showing good control - Continue current therapy with SSI and Accu-Cheks as ordered - Will restart home medications at discharge Peripheral vascular disease - Continue home therapy - Per discussion with patient it sounds as if she has had revascularization Left kidney mass - Was concerning for malignancy on CT however MRI shows probable pyelonephritis with micro abscesses - Will refer to urology for follow-up - Antibiotics as ordered with ceftriaxone and will discuss with ID given imaging Essential hypertension - Continue home atorvastatin DVT prophylaxis - Continue home enoxaparin CODE STATUS - Full code Charges/Coding Visit Charges Inpatient E&M: 07392 Subs Hosp L3
[2024-12-10 14:00] VITALS: BP 121/59; PULSE 92; RESP 14; TEMP 36.9; O2SAT 95
[2024-12-10 19:19] LABS: Troponin T High Sensitivity 204 ng/L (<=14)
[2024-12-10 20:58] VITALS: BP 139/61; PULSE 78; RESP 16; TEMP 37; O2SAT 94
[2024-12-10] MEDS: Ceftriaxone 2 GM in 0.9% Normal Saline (50mL MB+) 50 ML IV (21:06)
[2024-12-10] MEDS: 0.9% Saline Lock 10 ML Syringe IV (21:08)
[2024-12-11] VITALS (7 sets, daily range): BP systolic 122–148; BP diastolic 59–71; PULSE 69–88; RESP 14–116; TEMP 36.4–37; O2SAT 90–100; BMI 28.8
[2024-12-11 05:32] LABS: Hematocrit 26.2 % (37-47); Hemoglobin 8.4 g/dL (12.0-15.0); Immature Granulocytes Count 0.080 X10^3/uL (0.0-0.0); Mean Corp Hgb Conc 32.1 g/dL (32-36); Mean Corpuscular Volume 85.3 fL (81-99); Mean Platelet Vol. 9.7 fl (6.2-12.0); NRBC Flagged by Analyzer 0 % (0-5); Platelet Count 238 K/mm3 (150-450); RBC Distribution Width CV 13.7 % (11.6-14.6); RBC Distribution Width SD 42.5 fl (35.1-43.9); Red Blood Count 3.07 M/mm3 (4.2-5.4); White Blood Count 6.2 K/mm3 (4.4-11.0)
--- NOTE | 2024-12-11 05:55 | EKG12_ITS ---
Test Reason : AM EKG Blood Pressure : */* mmHG Vent. Rate : 72 BPM Atrial Rate : 72 BPM P-R Int : 146 ms QRS Dur : 84 ms QT Int : 408 ms P-R-T Axes : 53 -39 85 degrees QTcB Int : 446 ms Normal sinus rhythm Left axis deviation Minimal voltage criteria for LVH, may be normal variant ( R in aVL ) Septal infarct (cited on or before 03-Dec-2024) Abnormal ECG When compared with ECG of 03-Dec-2024 22:17, Vent. rate has decreased by 54 bpm Serial changes of Septal infarct Present Confirmed by KEVIN LUX, CONSUELO ([id number]), commercial production editor HERMINIA SIMON ([id number]) on 12/12/2024 5:44:09 AM Referred By: Confirmed By: CONSUELO BROWN MD
[2024-12-11 06:11] LABS: AST(SGOT) 21 U/L (<=31); Alanine Aminotransfer ALT/SGPT 13 U/L (<=34); Albumin, Serum 3.4 g/dL (3.4-4.8); Alkaline Phosphatase 73 U/L (35-104); Anion Gap 11 (5-15); BUN 17 mg/dL (4-19); BUN/Creat Ratio 16.8 RATIO (10-20); Calcium,Total 8.9 mg/dL (7.6-11.0); Carbon Dioxide 24.6 mmol/L (21.0-32.0); Chloride 104 mmol/L (98-108); Cholesterol 112 mg/dL (<=200); Estimated Creatinine Clearance 52.18 ml/min (50-250); Globulin 3.2 g/dL (2.2-4.2); Glucose 189 mg/dL (70-99); Low Density Lipoprotein Calc. 51 mg/dL; Potassium 3.8 mmol/L (3.3-5.1); Triglycerides 109 mg/dL; Very Low Density Lipoprotein 22 mg/dL (5-40); cholesterol:hdl ratio screen 2.89
[2024-12-11] MEDS: buPROPion (XL) 150 MG TABLET.XL PO (10:57)
[2024-12-11] MEDS: 0.9% Saline Lock 10 ML Syringe IV (11:06)
--- NOTE | 2024-12-11 11:31 | PCM.PN.REN ---
Subjective Subjective Patient sitting up in bed. No overnight events. Objective Data Objective Data Vital Signs: Vital Signs Temp Pulse Resp BP Pulse Ox O2 Del Method O2 Flow Rate 97.6 F L 88 116 H 136/59 H 100 Room Air 1 12/11/24 10:53 12/11/24 10:53 12/11/24 10:53 12/11/24 10:53 12/11/24 10:53 12/11/24 10:53 12/11/24 07:53 FiO2 21 12/06/24 07:01 Oxygen Flow Rate (L/min) 1 Oxygen Delivery Method Room Air Weight: 73.7 kg Body Mass Index (BMI) 28.8 Intake & Output: Intake and Output for Last 24 Hours 12/09/24 12/10/24 12/11/24 23:59 23:59 23:59 Intake Total 850 / 850 50 / 50 Balance 850 / 850 50 / 50 Lab / Micro Data 12/11/24 05:04 12/11/24 05:04 Labs: Laboratory Results - last 24 hr 12/10/24 08:02: Hemoglobin A1c 6.8 H 12/10/24 12:23: POC Glucose 229 H 12/10/24 17:19: POC Glucose 260 H 12/10/24 18:03: Troponin T High Sens 204 H* D 12/10/24 21:17: POC Glucose 240 H 12/11/24 05:04: WBC 6.2, RBC 3.07 L, Hgb 8.4 L, Hct 26.2 L, MCV 85.3, MCH 27.4, MCHC 32.1, RDW Std Deviation 42.5, RDW Coeff of Nuno 13.7, Plt Count 238, MPV 9.7, Immature Gran % (Auto) 1.300 H, Neut % (Auto) 68.0, Lymph % (Auto) 15.1 L, [place] % (Auto) 9.4, Eos % (Auto) 5.7 H, Baso % (Auto) 0.5, Absolute Neuts (auto) 4.2, Absolute Lymphs (auto) 0.93, Nucleated RBC % 0, Sodium 139, Potassium 3.8, Chloride 104, Carbon Dioxide 24.6, Anion Gap 11, BUN 17, Creatinine 1.02, Estim Creat Clear Calc 52.18, Est GFR (MDRD) Non-Af 61, BUN/Creatinine Ratio 16.8, Glucose 189 H, Hemoglobin A1c 7.0 H, Calcium 8.9, Total Bilirubin 0.30, AST 21, ALT 13, Alkaline Phosphatase 73, Total Protein 6.6, Albumin 3.4, Globulin 3.2, Albumin/Globulin Ratio 1.1, Triglycerides 109, Cholesterol 112, LDL Cholesterol, Calc 51, VLDL Cholesterol 22, HDL Cholesterol 39 L, Cholesterol/HDL Ratio 2.89 12/11/24 06:28: POC Glucose 177 H Micro: Microbiology 12/03/24 23:45 Blood Culture (Wb) - Anticubital Left Blood Culture - Final No growth in 5 days. 12/03/24 23:45 Blood Culture (Wb) - Anticubital Right Blood Culture - Final No growth in 5 days. 12/03/24 20:57 Urine Catheter - Catheter Urine Culture - Final Escherichia coli Gram positive joyce 12/03/24 22:45 Sputum, Tracheal Aspirate Gram Stain - Final 12/03/24 22:45 Sputum, Tracheal Aspirate Respiratory Culture - Final Mixed normal respiratory alma rosa. No Streptococcus pneumoniae, beta-hemolytic Streptococcus or Staphylococcus aureus isolated. 12/04/24 09:43 Mucosa - Nasopharyngeal SARS-CoV-2, Influenza & RSV (PCR) - Final Radiography Diagnostic Testing: Radiology Impression Abdomen MRI 12/10/24 09:36 IMPRESSION: As previously described on prior CT the heterogeneous appearance of the nephrogram of the superior pole of the left kidney is associated with a few small cystic foci. Pyelonephritis with microabscesses should be considered. Correlate with history, physical, urinalysis. Underlying neoplasm is favored less. This could be re-evaluated after treatment in 3 months to ensure resolution and exclude a mass.. Abnormal left para-aortic lymph nodes. Reactive or less likely neoplastic. These can be evaluated at follow-up. No collecting system dilation. Reading Location: [facility] Physical Exam Narrative Alert, awake, no apparent distress no JVD s1s2 no murmurs Breath sounds clear anteriorly abdomen soft no edema Assessment & Plan Assessment/Plan (1) ANTONIO (acute kidney injury): PLAN: History of diabetes, reviewed lab data from outpatient epic. HbA1c was fairly high up until 2 years ago, over the last 1 year, HbA1c values have come down to about 7.2-7.3. Likely has some diabetic nephropathy. Baseline creatinine appears to be around 1.2 and so she has CKD stage IIIa. - ANTONIO is likely due to ongoing events, ATN. Nonoliguric. Serum creatinine was 1.53 mg/dL on admission, peaked to 1.66 on 12/06 and today creatinine 1.02 mg/dL. ANTONIO likely has resolved. CT abdomen revealed a 5.3 cm heterogeneous mass, lymphadenopathy as well. There is pyelonephritis changes on the other side, on coverage with antibiotics as per primary. Patient had abdominal MRI on 12/10: As previously described on prior CT the heterogeneous appearance of the nephrogram of the superior pole of left kidney is associated with a few small cystic foci, abnormal left para?aortic lymph nodes, reactive or less likely neoplastic, pyelonephritis with microabscesses should be considered, underlying neoplasm is favored less --- patient has been referred to urology for follow-up. - Discussed above with Dr. Parks. Possible discharge today. Will arrange for hospital follow-up.
--- NOTE | 2024-12-11 13:32 | PCM.DC.SUM ---
Providers Date of Admission: 12/04/24 Date of Discharge: 12/11/24 Primary Care Physician: Dr. 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 Routine Comment: Reason for Consult:: Foot Wound 12/05/24 07:43 Consult: Nephrology Routine Consulting Provider: Silvano Boyd Reason for Consult: ANTONIO EMERGENT Consult: No MD Notified: Yes Date Notified: 12/05/24 Time Notified: 07:44 Method of Notification: Answering Service Reason For Visit: ACUTE RESPIRATORY FAILURE UTI Diagnosis Discharge Diagnosis (1) Acute UTI: Status: Acute Code(s): N39.0 - Urinary tract infection, site not specified (2) DM type 2 (diabetes mellitus, type 2): Status: Chronic Code(s): E11.9 - Type 2 diabetes mellitus without complications (3) Hypertension: Status: Chronic Code(s): I10 - Essential (primary) hypertension (4) Hyperlipidemia: Status: Chronic Code(s): E78.5 - Hyperlipidemia, unspecified (5) Acute respiratory failure: Status: Acute Code(s): J96.00 - Acute respiratory failure, unspecified whether with hypoxia or hypercapnia Medications at Discharge Home Medications aspirin 81 mg chewable tablet 81 mg PO DAILY@0800 Blood thinner 12/27/15 ferrous sulfate 325 mg (65 mg iron) tablet 325 mg PO DAILY 01/01/22 hydrocodone-acetaminophen 5-325mg 5mg-325mg 1 tab PO Q6H pain 3 days #12 tabs 01/08/22 atorvastatin 40 mg tablet 40 mg PO QHS cholesterol 12/03/24 bupropion HCl 150 mg 24 hr tablet, extended release 150 mg PO DAILY pain 12/03/24 ezetimibe 10 mg tablet 10 mg PO DAILY cholesterol 12/03/24 glipizide 2.5 mg tablet, extended release 24 hr 2.5 mg PO DAILY diabetes 12/03/24 metformin 1,000 mg tablet 1,000 mg PO BID diabetes 12/03/24 pioglitazone 30 mg tablet 30 mg PO DAILY diabetes 12/03/24 amlodipine 10 mg tablet 10 mg PO DAILY #30 tabs 12/11/24 carvedilol 3.125 mg tablet 3.125 mg PO BIDCM #60 tabs 12/11/24 cephalexin 500 mg capsule 500 mg PO Q6H #20 caps 12/11/24 empagliflozin 10 mg tablet (Jardiance) 10 mg PO DAILY #30 tabs 12/11/24 lisinopril 2.5 mg tablet 2.5 mg PO DAILY #30 tabs 12/11/24 Hospital Course Operations None Procedures 2-D Echocardiogram, EKG and - (MRI Abdomen/CT abdomen pelvis/CT brain/CTA chest/chest x-ray x 3/KUB x 2) Summary of Care Provided Minutes Spent on Discharge: 45 Hospital Course: Ms. Corrigan is a 64-year-old white female who presented to the emergency department at [facility] on 12/04/2024 with a chief complaint of abdominal pain. Patient reported to the emergency department physician that she felt funny when she woke up but did complain of some abdominal discomfort and dysuria on the day of presentation. She denied fever or chills. Initially in the emergency department her UA was consistent with IR tract infection so the plan was for discharge home with Keflex however the patient's began having respiratory distress and was described as having agonal breathing so she was intubated and placed on a ventilator with sedation via propofol. Vital signs on presentation showed temperature of 97.0, heart rate was 92, respiratory rate was 16, blood pressure was 161/81 and pulse ox was initially 98% on room air. As noted she significantly decompensated point which required mechanical ventilation. CBC on presentation showed chronic stable anemia with a hemoglobin of 9.5 but was otherwise unremarkable. Chemistry panel showed a serum creatinine of 1.53 with a BUN of 25 and a blood sugar of 211 but was otherwise unremarkable. UA was consistent with infection having occult blood, nitrates, leuk esterase, white cells, and bacteria. Initial troponin was 36. Her initial lactic acid was normal. She was found to be significantly acidotic shortly after intubation having a ABG with a pH of 7.16 with pCO2 of 62.4 and a pO2 of 116 a serum bicarb estimated at 22.2 on mechanical ventilation at 100%. She was admitted for sepsis and placed in the ICU. She did not respond to volume resuscitation and did require initiation of pressors. Echocardiogram was obtained and she was found to be EF of 45% with mild wall motion abnormalities in the apex and the anterior apex and stage I diastolic dysfunction. She was able to be extubated and eventually transferred to the medical floor. Retrospectively, it does appear that maybe her respiratory distress was related to an acute AR from NSTEMI. Given her abnormal echocardiogram we did obtain a stress test prior to discharge which is consistent with previous anterior apical AR but no acute ischemic changes were noted at this time. I did discuss the case with cardiology who was reading stress test on the day of discharge, and he felt that at this point she did not need cardiac catheterization as an inpatient but should definitely follow-up as outpatient in the cardiology office. We did call the office and she already has an appointment made for 01/16/[address] Hensley at 8:30 AM. She was placed on goal-directed therapy for EF with low-dose beta-natalia taking Coreg 3.125 mg twice daily, lisinopril 2.5 mg daily, Jardiance 10 mg daily, her statin was continued and she was maintained on baby aspirin. The CT of her abdomen and pelvis did show the left kidney with a mass on it. MRI was performed of the abdomen pelvis on 12/10/2024 and it appears that this is consistent with pyelonephritis with microabscesses. Given the fact that they are microabscesses there is nothing to drain. I did discuss the case with infectious disease and they recommended treating for total of 14 days with oral antibiotics at discharge and have her follow-up as an outpatient with urology for repeat imaging which was recommended on the MRI. She was given a referral to follow-up with Dr. Tuttle. She is to call the office tomorrow to set up this appointment. Prescriptions for her new medication were sent to local pharmacy prior to discharge we did check a lipid panel and it does appear that her lipids are well-controlled. Hemoglobin A1c is under control at this time with current regimen. The Jardiance was added for her heart failure not specifically for her diabetes but should help as well. She will follow-up with her primary care physician, cardiology, urology, and nephrology is to call and set up an appointment with her. She was able to be discharged home with home health care in stable condition on 12/11/2024. Discharge diagnoses: Septic shock secondary to acute pyelonephritis/E. coli UTI Acute hypoxic and hypercapnic respiratory failure secondary to flash pulmonary edema with acute HFrEF NSTEMI Cardiomyopathy -Suspect acute ischemic Anemia ANTONIO-resolved DM-2 Peripheral vascular disease Left kidney mass-MRI consistent with micro abscesses and pyelonephritis Essential hypertension Hyperlipidemia Peripheral vascular disease Tobacco abuse History of stroke History of osteomyelitis right foot status post amputation Physical Exam Const alert, oriented x3, no apparent distress, no limitations and well nourished; Negative for healthy appearing Constitutional Narrative: Overweight, upper middle-age white female, sitting up in a chair at the bedside, watching television, appears older than stated age, appears comfortable and nontoxic General Appearance: cooperative, comfortable, well kempt and well developed Exam Limitations: no limitations Nutritional Appearance: overweight HEENT normocephalic, head/scalp atraumatic, hearing grossly normal bilaterally and moist oral mucous membranes HEENT Narrative: Edentulous, no thrush Eyes PERRL and EOMs intact bilaterally; Negative for conjunctivae normal Eyes Narrative: Mild conjunctiva pallor bilaterally, no scleral icterus Neck no lymphadenopathy and supple Neck Narrative: Trachea midline, no thyroid enlargement Resp normal respiratory effort, no retractions, no use of accessory muscles and clear to auscultation bilaterally Effort and Inspection: respiratory distress Auscultation: Negative for crackles, rhonchi or wheezes Cardio regular rate, regular rhythm, S1 normal heart sound, S2 normal heart sound, no murmurs, no rub, no gallops and no clicks GI normal to inspection, nondistended, normoactive bowel sounds, soft to palpation and non-tender Extremity no clubbing, cyanosis or edema Extremity Narrative: 2+ pedal and radial pulses Skin no jaundice, no petechiae and no mottling Skin Narrative: No significant lesions, skin is slightly pale Neuro moves all extremities and no focal motor deficits Neuro Narrative: Patient is currently sedated on propofol Speech: speech normal Psych affect normal Psych Narrative: Very pleasant, eye contact is good and patient interacts appropriately Weight / BMI Weight Weight: 73.7 kg Body Mass Index (BMI) 28.8 ABG / Lab / Microbiology Data 12/11/24 05:04 12/11/24 05:04 Laboratory: Laboratory Results - last 24 hr 12/10/24 08:02: Hemoglobin A1c 6.8 H 12/10/24 17:19: POC Glucose 260 H 10/06/25 18:03: Troponin T High Sens 204 H* D 12/10/24 21:17: POC Glucose 240 H 12/11/24 05:04: WBC 6.2, RBC 3.07 L, Hgb 8.4 L, Hct 26.2 L, MCV 85.3, MCH 27.4, MCHC 32.1, RDW Std Deviation 42.5, RDW Coeff of Nuno 13.7, Plt Count 238, MPV 9.7, Immature Gran % (Auto) 1.300 H, Neut % (Auto) 68.0, Lymph % (Auto) 15.1 L, [place] % (Auto) 9.4, Eos % (Auto) 5.7 H, Baso % (Auto) 0.5, Absolute Neuts (auto) 4.2, Absolute Lymphs (auto) 0.93, Nucleated RBC % 0, Sodium 139, Potassium 3.8, Chloride 104, Carbon Dioxide 24.6, Anion Gap 11, BUN 17, Creatinine 1.02, Estim Creat Clear Calc 52.18, Est GFR (MDRD) Non-Af 61, BUN/Creatinine Ratio 16.8, Glucose 189 H, Hemoglobin A1c 7.0 H, Calcium 8.9, Total Bilirubin 0.30, AST 21, ALT 13, Alkaline Phosphatase 73, Total Protein 6.6, Albumin 3.4, Globulin 3.2, Albumin/Globulin Ratio 1.1, Triglycerides 109, Cholesterol 112, LDL Cholesterol, Calc 51, VLDL Cholesterol 22, HDL Cholesterol 39 L, Cholesterol/HDL Ratio 2.89 12/11/24 06:28: POC Glucose 177 H 12/11/24 13:08: POC Glucose 325 H Microbiology: Microbiology 12/03/24 23:45 Blood Culture (Wb) - Anticubital Left Blood Culture - Final No growth in 5 days. 12/03/24 23:45 Blood Culture (Wb) - Anticubital Right Blood Culture - Final No growth in 5 days. 12/03/24 20:57 Urine Catheter - Catheter Urine Culture - Final Escherichia coli Gram positive joyce 12/03/24 22:45 Sputum, Tracheal Aspirate Gram Stain - Final 12/03/24 22:45 Sputum, Tracheal Aspirate Respiratory Culture - Final Mixed normal respiratory alma rosa. No Streptococcus pneumoniae, beta-hemolytic Streptococcus or Staphylococcus aureus isolated. 12/04/24 09:43 Mucosa - Nasopharyngeal SARS-CoV-2, Influenza & RSV (PCR) - Final Radiography Diagnostic Testing: Radiology Impression Abdomen MRI 12/10/24 09:36 IMPRESSION: As previously described on prior CT the heterogeneous appearance of the nephrogram of the superior pole of the left kidney is associated with a few small cystic foci. Pyelonephritis with microabscesses should be considered. Correlate with history, physical, urinalysis. Underlying neoplasm is favored less. This could be re-evaluated after treatment in 3 months to ensure resolution and exclude a mass.. Abnormal left para-aortic lymph nodes. Reactive or less likely neoplastic. These can be evaluated at follow-up. No collecting system dilation. Reading Location: [id number] Instructions Discharge Activity: Return to Normal Activity DC O2, CPAP, BIPAP Needs Home O2 Discharge instructions: No DC home with Oxygen: No Meaningful Use Info Meaningful Use Meaningful Use Diagnoses (Choose all that apply): CHF CHF JOSE/ARB ordered at discharge?: Yes Documented LVEF (%): 45 Discharge Plan Admission Admit Date/Time: 12/04/24 01:13 Primary Reason for Your Visit: Shortness of breath Attending Provider: Li Parks Primary Care Provider: Christiano Trotter Consulting Providers: Clifton Alexander; Chuy Narvaez; Silvano Boyd; David Bryant Instructions Additional Instructions / Restrictions: 1. Please follow-up with urology as noted below for your left kidney 2. Please complete antibiotics as ordered 3. Please follow-up with specialist as noted below Discharge Orders/Prescriptions Prescriptions: New cephalexin 500 mg capsule 500 mg PO Q6H Qty: 20 0RF carvedilol 3.125 mg Tablet 3.125 mg PO BIDCM Qty: 60 1RF lisinopril 2.5 mg Tablet 2.5 mg PO DAILY Qty: 30 1RF Jardiance 10 mg tablet 10 mg PO DAILY Qty: 30 0RF amlodipine 10 mg tablet 10 mg PO DAILY Qty: 30 1RF Continued aspirin 81 MG tablet,chewable 81 mg PO DAILY@0800 ferrous sulfate 325 MG tablet 325 mg PO DAILY hydrocodone-acetaminophen 5-325 mg tablet 1 tab PO Q6H 3 Days Qty: 12 0RF atorvastatin 40 mg tablet 40 mg PO QHS glipizide 2.5 mg tablet extended release 24hr 2.5 mg PO DAILY metformin 1,000 mg tablet 1,000 mg PO BID pioglitazone 30 mg tablet 30 mg PO DAILY ezetimibe 10 mg tablet 10 mg PO DAILY bupropion HCl 150 mg tablet extended release 24 hr 150 mg PO DAILY Referrals / Follow Up: Wilfredo Tuttle MD [Med Staff - Active Staff, Urology] - 12/18/24 11:00 am Referral Note: APPOINTMENT WITH DR. TUTTLE TO BE SEEN FOR A LEFT KIDNEY RINAL MASS oRland Larios MD [Med Staff - Active Staff, Cardiology] - 01/16/25 8:30 am Referral Note: APPOINTMENT WITH DR. HENSLEY FOR abnormal echocardiogram Christiano Trotter MD [Primary Care Provider, Internal Medicine] - 12/14/24 9:00 am Referral Note: APPOINTMENT WITH DR. TROTTER ARRIVE AT 8:45AM Disposition Disposition (needs filled in before D/C Order can be placed): Home Health Service Charges/Coding Visit Charges Inpatient E&M: 23621 Disch Hosp >30min
--- NOTE | 2024-12-11 14:39 | CASEMGMT ---
Patient has order for discharge. Patient is discharging on Jardiance, JOSSELYN STROUD called [facility], copay is $222.13. JOSSELYN STROUD called and updated [facility] of discharge, start of care planned for tomorrow. JOSSELYN STROUD in to discuss needs at discharge, daughter at bedside. JOSSELYN STROUD updated patient of [facility] start of care for tomorrow. RN MAXIMUS updated patient regarding cost of Jardiance, patient states she will not be able to fill due to cost. RN MAXIMSU encouraged patient to follow-up with zinc chloride operator for possible alternatives. Patient and daughter had no further questions or concerns. JOSSELYN STROUD updated hospitalist regarding Jardiance being to expensive for patient, hospitalist stated for patient to follow-up with cardiology as an outpatient for further instructions.
--- NOTE | 2024-12-11 14:43 | PHA.DC.MC.R ---
Pharmacy [facility] Counseling Pharmacy Service has performed discharge medication reconciliation and counseling for this patient. The patient's discharge medication list was reviewed for discrepancies and discrepancies were resolved. The patient was counseled on the following discharge medications and changes in medications for homegoing were reviewed. The Reason for Use, instructions for use, and potential side effects were reviewed for all new medications. The patient's questions regarding all of their medications were answered. 1. Cephalexin 500 mg PO Q6 x 5 days 2. Lisinopril 2.5 mg PO daily 3. Carvedilol 3.125 mg PO BID 4. Jardiance 10 mg PO daily 5. Amlodipine 10 mg PO daily The patient was able to verbally demonstrate an understanding of their discharge medications. Medications at Discharge Home Medications aspirin 81 mg chewable tablet 81 mg PO DAILY@0800 Blood thinner 12/27/15 ferrous sulfate 325 mg (65 mg iron) tablet 325 mg PO DAILY 01/01/22 hydrocodone-acetaminophen 5-325mg 5mg-325mg 1 tab PO Q6H pain 3 days #12 tabs 01/08/22 atorvastatin 40 mg tablet 40 mg PO QHS cholesterol 12/03/24 bupropion HCl 150 mg 24 hr tablet, extended release 150 mg PO DAILY pain 12/03/24 ezetimibe 10 mg tablet 10 mg PO DAILY cholesterol 12/03/24 glipizide 2.5 mg tablet, extended release 24 hr 2.5 mg PO DAILY diabetes 12/03/24 metformin 1,000 mg tablet 1,000 mg PO BID diabetes 12/03/24 pioglitazone 30 mg tablet 30 mg PO DAILY diabetes 12/03/24 amlodipine 10 mg tablet 10 mg PO DAILY #30 tabs 12/11/24 carvedilol 3.125 mg tablet 3.125 mg PO BIDCM #60 tabs 12/11/24 cephalexin 500 mg capsule 500 mg PO Q6H #20 caps 12/11/24 empagliflozin 10 mg tablet (Jardiance) 10 mg PO DAILY #30 tabs 12/11/24 lisinopril 2.5 mg tablet 2.5 mg PO DAILY #30 tabs 12/11/24
--- NOTE | 2024-12-11 18:38 | STRESSREP ---
Stress Test Report Pharmacologic myocardial perfusion stress test. 64-year-old lady with a history of abnormal troponin. Resting EKG demonstrates normal sinus rhythm with a rate of 75 bpm. Resting blood pressure is 122/70 mmHg. 0.4 mg of regadenoson was infused per usual protocol followed by rapid intravenous saline flush injection. Continuous EKG monitoring was performed. The maximum heart rate was 84 bpm which was 54% of max impacted heart rate the maximum workload was 1 metabolic equivalent. At rest there were no ST or T wave changes noted to suggest ischemia and at peak infusion nonspecific ST changes were noted which did not meet the criteria for ischemia. No clinical angina is noted. The final blood pressure was 116/70 mmHg. Myocardial perfusion protocol. 12 mCi of technetium 99m sestamibi was injected at rest. 0.4 mg of regadenoson was infused per usual protocol. At peak infusion 34.4 mCi of technetium 99m sestamibi was injected stress images were obtained stress and rest images were reconstructed and compared in the short axis vertical long and horizontal long axis. Gated images were also obtained. Perfusion SPECT analysis: Review of the stress images demonstrate normal uptake of tracer noted in all areas of the myocardium. There is a defect noted in the mid to distal anterior wall and apex noted on the stress imaging. The resting images similar demonstrated normal uptake of tracer noted in all areas of the myocardium except for the anterior wall and apex which has a defect. The above is suggestive of a previous anterior apical infarct. No ischemia is noted. Gated SPECT analysis: The gated ejection fraction is 45%. Conclusion: Abnormal pharmacologic myocardial perfusion stress test. Previous anterior apical infarct Mildly reduced ejection fraction.
== END 2024-12-11 16:06 | disposition home health service (06) | DRG 871 ==
LOC: ED 12-04 01:06 → ICU 12-04 01:22 → PCU 12-07 17:47
PROVIDERS: Family Medicine; Internal Medicine; Internal Medicine Critical Care Medicine; Admitting Provider Family Medicine; Emergency Provider Student in an Organized Health Care Education/Training Program; PCP Internal Medicine; Visit Provider Internal Medicine
DX: A41.51 Sepsis due to Escherichia coli [E. coli] (principal); J96.02 Acute respiratory failure with hypercapnia; N17.0 Acute kidney failure with tubular necrosis; R65.21 Severe sepsis with septic shock; J96.01 Acute respiratory failure with hypoxia; I50.21 Acute systolic (congestive) heart failure; N15.1 Renal and perinephric abscess; G93.41 Metabolic encephalopathy; J81.0 Acute pulmonary edema; I13.0 Hypertensive heart and chronic kidney disease with heart failure and stage 1 through stage 4 chronic kidney disease, or unspecified chronic kidney disease; I24.89 Other forms of acute ischemic heart disease; E87.0 Hyperosmolality and hypernatremia; N10 Acute pyelonephritis; N39.0 Urinary tract infection, site not specified; E11.22 Type 2 diabetes mellitus with diabetic chronic kidney disease; N18.31 Chronic kidney disease, stage 3a; F32.A Depression, unspecified; D50.9 Iron deficiency anemia, unspecified; Z89.431 Acquired absence of right foot; E11.51 Type 2 diabetes mellitus with diabetic peripheral angiopathy without gangrene; D63.8 Anemia in other chronic diseases classified elsewhere; E78.5 Hyperlipidemia, unspecified; F17.210 Nicotine dependence, cigarettes, uncomplicated; I45.10 Unspecified right bundle-branch block; K29.70 Gastritis, unspecified, without bleeding; K59.00 Constipation, unspecified; E87.6 Hypokalemia; I25.5 Ischemic cardiomyopathy; A41.89 Other specified sepsis; E66.3 Overweight; Z79.82 Long term (current) use of aspirin; Z79.899 Other long term (current) drug therapy; Z79.84 Long term (current) use of oral hypoglycemic drugs; Z86.73 Personal history of transient ischemic attack (TIA), and cerebral infarction without residual deficits; Z68.28 Body mass index [BMI] 28.0-28.9, adult; Z87.39 Personal history of other diseases of the musculoskeletal system and connective tissue
CPT/HCPCS: 31500; 31720; 36415; 36569; 36600; 51702; 70450; 71045; 71275; 74018; 74177; 74183; 78452; 80048; 80053; 80061; 80076; 81001; 82550; 82607; 82728; 82803; 82962; 83036; 83540; 83550; 83605; 83690; 83735; 83880; 84100; 84145; 84478; 84484; 85025; 85045; 86850; 86900; 86901; 87040; 87070; 87077; 87086; 87088; 87186; 87205; 87631; 92526; 92610; 93005; 93017; 93306; 94002; 94003; 94660; 94668; 94762; 97116; 97162; 97166; 97530; 97535; 97803; 99252; 99285; A9500; A9575; Q9957; Q9967; A4216; C8929; G0463; J0696; J1938; J2405; J2785; J2916

== ENCOUNTER → 2024-12-18 | Outpatient (CLI) | payer MEDICARE, SELFPAY ==
[2024-12-18 14:19] LABS: Anion Gap 11 (5-15); BUN 22 mg/dL (4-19); BUN/Creat Ratio 14.1 RATIO (10-20); Calcium,Total 9.5 mg/dL (7.6-11.0); Carbon Dioxide 23.9 mmol/L (21.0-32.0); Chloride 102 mmol/L (98-108); Glucose 137 mg/dL (70-99); Potassium 4.8 mmol/L (3.3-5.1)
== END | disposition home or self-care (01) ==
LOC: LAB 12:04
PROVIDERS: PCP Internal Medicine; Referring Provider Urology; Visit Provider Urology
DX: N17.9 Acute kidney failure, unspecified (principal)
CPT/HCPCS: 36415; 80048

== ENCOUNTER → 2024-12-21 | Outpatient (CLI) | payer MEDICARE, SELFPAY ==
--- NOTE | 2024-12-21 13:25 | CT_ITS ---
EXAM: CT Abdomen With Intravenous Contrast CLINICAL INDICATION: BENIGN NEOPLASM OF UNSPECIFIED KIDNEY TECHNIQUE: Axial computed tomography images of the abdomen with intravenous contrast. This CT exam was performed using one or more of the following dose reduction techniques: automated exposure control, adjustment of the mA and/or kV according to patient size, and/or use of iterative reconstruction technique. COMPARISON: MRI abdomen 12/10/2024 FINDINGS: LUNG BASES: Unremarkable. No mass. No consolidation. LIVER: Fatty infiltration of the liver. GALLBLADDER AND BILE DUCTS: Unremarkable. No calcified stones. No ductal dilation. PANCREAS: Unremarkable. No mass. No ductal dilation. SPLEEN: Unremarkable. No splenomegaly. ADRENALS: Unremarkable. No mass. KIDNEYS AND URETERS: Ill-defined and lobulated hypodense attenuation of the upper pole of the left kidney could represent pyelonephritis. Underlying mass can not be excluded. This was described on recent MRI. STOMACH AND BOWEL: Unremarkable. No obstruction. No mucosal thickening. INTRAPERITONEAL SPACE: Unremarkable. No free air. No significant fluid collection. BONES/JOINTS: Multiple anterior wedging deformity of the anterior mid thoracic vertebrae, likely chronic. No dislocation. SOFT TISSUES: Unremarkable. VASCULATURE: Scattered calcified atherosclerotic disease of aorta. No abdominal aortic aneurysm. LYMPH NODES: Multiple large para-aortic lymph nodes, largest measuring up to 1.[address]/Abdomen WITH IV Contrast IMPRESSION: 1. Ill-defined and lobulated hypodense attenuation of the upper pole of the le ft kidney could represent pyelonephritis. Underlying mass can not be excluded. This was described on recent MRI. 2. Retroperitoneal lymphadenopathy could be reactive changes. Metastasis can not be excluded. Reading Location: [id number]
== END | disposition home or self-care (01) ==
LOC: CT 13:22
PROVIDERS: PCP Internal Medicine; Referring Provider Urology; Visit Provider Urology
DX: D30.00 Benign neoplasm of unspecified kidney (principal)
CPT/HCPCS: 74160; Q9967

== ENCOUNTER 2025-01-09 07:42 | Outpatient (CLI) | payer MEDICARE, SELFPAY ==
[2025-01-09] VITALS (7 sets, daily range): BP systolic 104–129; BP diastolic 39–71; PULSE 79–82; RESP 18; O2SAT 92–97; BMI 29.0
--- NOTE | 2025-01-09 | KI_PTH ---
PATIENT: ROSALINO LEVY LOC: CT U#:[id number] AGE/SX: 64/F ROOM: RE01/09/[address]: Dr. Wilfredo Tuttle MD : 1960 BED: DIS: 01/09/2025 SPEC #: [id number] RECD: 01/09/25 09:45 STATUS: [facility] REQ #: [id number] ALLEN: 01/09/25 00:[address]: Wilfredo Tuttle DEPT: SURGICAL PATHOLOGY RECD BY: Richard Quiñonez ENTERED: 01/25/25 14:19 SP TYPE: KIDNEY BX OTHR DR: Dr. Christiano Ramirez MD Tissues: Kidney, NOS Procedures: Surgery Specimen Level IV HEADER OPERATION: Ultrasound guided kidney biopsy PRE-OP DIAGNOSIS: Neoplasm of left kidney TISSUE SUBMITTED: A- Kidney biopsy - 5 passes / samples GROSS DESCRIPTION A. Received from [facility] , [place], [place], is a [place] kidney biopsy with two containers labeled with the patient's name and "Kidney biopsy". The vial with formalin contains three pieces of 0.1cm fernández-pink renal cores with the aggregate length of 6.6cm. One 0.3cm piece in total length is submitted for electron microscopy. The IF transport medium vial contains two pieces of 0.1cm fernández-pink renal cores with the aggregate length of 3.5cm. One 2.1cm piece in total length is submitted for immunofluorescence and is cut into three pieces. The remaining one 1.4cm piece in total length is transferred from the IF transport medium and combined with the formalin fixed pieces. All soft tissue and formalin-fixed tissue is submitted for light microscopy. TE3 Grossed at [facility] by Dl Abernathy Summary of sections: A1- Four pieces A2- Three pieces IF tissue A3- Four pieces, kidney protocol
[2025-01-09 08:01] LABS: Hematocrit 30.8 % (37-47); Hemoglobin 9.6 g/dL (12.0-15.0); Immature Granulocytes Count 0.020 X10^3/uL (0.0-0.0); Mean Corp Hgb Conc 31.2 g/dL (32-36); Mean Corpuscular Volume 91.1 fL (81-99); Mean Platelet Vol. 9.3 fl (6.2-12.0); NRBC Flagged by Analyzer 0 % (0-5); Platelet Count 189 K/mm3 (150-450); RBC Distribution Width CV 15.9 % (11.6-14.6); RBC Distribution Width SD 52.0 fl (35.1-43.9); Red Blood Count 3.38 M/mm3 (4.2-5.4); White Blood Count 6.3 K/mm3 (4.4-11.0)
--- NOTE | 2025-01-09 08:07 | US_ITS ---
PROCEDURE: KIDNEY BIOPSY 01/09/2025 REASON FOR EXAM: NEOPLASM OF LEFT KIDNEY TECHNIQUE: Procedure Code: USKIB Modality: US Procedure: KIDNEY BIOPSY COMPARISON: CT examination of 12/21/2024. FINDINGS: Procedure: Following informed consent, and using standard sterile technique, an ultrasound- guided core biopsy of a left superior kidney mass was performed via an anterolateral approach. 2% lidocaine local anesthesia was followed by placement of an 18 gauge CorVocet core biopsy set, with a total of 5 samples obtained. No complication was encountered, the patient left the department in good condition without significant complaint. US/Kidney Biopsy IMPRESSION: Successful ultrasound-guided core biopsy of a left superior pole renal mass. P athology results pending. Reading Location: [place] [id number]
[2025-01-09 08:15] LABS: Prothrombin Time (Protime)PT. 14.1 SECONDS (11.7-14.9)
[2025-01-09 08:16] LABS: Partial Thromboplast Time 32.8 Seconds (24.1-36.2)
[2025-01-09] MEDS: Lidocaine 2% (20 ml mdv) 20 ML Vial INFILT (09:40)
[2025-01-09] MEDS: 0.9% Saline Lock 10 ML Syringe IV (09:50)
[2025-01-16 10:33] LABS: Pathology Sent to OSU SEE PATHOLOGY REPORT
== END 2025-01-09 23:59 | disposition home or self-care (01) ==
PROVIDERS: Radiology Nuclear Radiology; PCP Internal Medicine; Referring Provider Urology; Visit Provider Urology
DX: D41.02 Neoplasm of uncertain behavior of left kidney (principal); N12 Tubulo-interstitial nephritis, not specified as acute or chronic
CPT/HCPCS: 50200; 36415; 76942; 85025; 85610; 85730; 88305; A4216

== ENCOUNTER 2025-01-16 09:44 | Outpatient (CLI) | payer MEDICARE, SELFPAY ==
--- NOTE | 2025-01-16 09:54 | VDLE_ITS ---
Reason For Study Reason For Study: Bilateral leg swelling RIGHT LEFT GSV is normal. GSV is normal. CFV is compressible, spontaneous, phasic, competent CFV is compressible, spontaneous, phasic, competent, and demonstrates normal augmentation. and demonstrates normal augmentation. FV is compressible, spontaneous, phasic, competent FV is compressible, spontaneous, phasic, competent and demonstrates normal augmentation. and demonstrates normal augmentation. POP V is compressible, spontaneous, phasic, competent POP V is compressible, spontaneous, phasic, competent and demonstrates normal augmentation. and demonstrates normal augmentation. T/P Trunk is compressible. T/P Trunk is compressible. PTV is compressible. PTV is compressible. RT PerV is compressible. LT PerV is compressible. Procedure This is a venous duplex using B-mode, color flow and spectral Doppler. Exam performed in department. A preliminary report was called and/or faxed to [facility] RN voicemail. VL/Venous Duplex US - [place] Extrem Interpretation Summary Deep veins of the bilateral lower extremities are patent and compressible segme ntally. There is no evidence of bilateral lower extremity deep vein thrombosis. The bilateral great saphenous veins appea rs patent and compressible segmentally. Ordering Physician: Noel Solorio Referring Physician: Chrisitano Ramirez M.D. Performed By: Maddie Jones RVT
[2025-01-16 10:36] LABS: AST(SGOT) 17 U/L (<=31); Alanine Aminotransfer ALT/SGPT 8 U/L (<=34); Albumin, Serum 4.0 g/dL (3.4-4.8); Alkaline Phosphatase 66 U/L (35-104); Anion Gap 11 (5-15); BUN 22 mg/dL (4-19); BUN/Creat Ratio 16.3 RATIO (10-20); Calcium,Total 9.7 mg/dL (7.6-11.0); Carbon Dioxide 21.2 mmol/L (21.0-32.0); Chloride 107 mmol/L (98-108); Globulin 2.9 g/dL (2.2-4.2); Glucose 93 mg/dL (70-99); Potassium 4.3 mmol/L (3.3-5.1)
== END 2025-01-16 23:59 | disposition home or self-care (01) ==
PROVIDERS: PCP Internal Medicine; Referring Provider Internal Medicine Cardiovascular Disease; Visit Provider Internal Medicine Cardiovascular Disease
DX: E11.51 Type 2 diabetes mellitus with diabetic peripheral angiopathy without gangrene (principal); E11.42 Type 2 diabetes mellitus with diabetic polyneuropathy; I70.92 Chronic total occlusion of artery of the extremities; R60.0 Localized edema; I25.10 Atherosclerotic heart disease of native coronary artery without angina pectoris; I10 Essential (primary) hypertension
CPT/HCPCS: 36415; 80053; 93970

== ENCOUNTER 2025-01-28 06:43 | Inpatient (IN) | payer MEDICARE, SELFPAY ==
[2025-01-28] VITALS (26 sets, daily range): BP systolic 102–170; BP diastolic 7–98; PULSE 74–101; RESP 12–32; TEMP 35.8–37.2; O2SAT 70–100; BMI 29.4; BMI 28.5
--- NOTE | 2025-01-28 06:52 | EKG12_ITS ---
Test Reason : SOB Blood Pressure : */* mmHG Vent. Rate : 78 BPM Atrial Rate : 78 BPM P-R Int : 160 ms QRS Dur : 86 ms QT Int : 384 ms P-R-T Axes : 63 -33 87 degrees QTcB Int : 437 ms Normal sinus rhythm Left axis deviation Minimal voltage criteria for LVH, may be normal variant ( R in aVL ) Septal infarct , age undetermined Abnormal ECG Confirmed by KEVIN LUX, CONSUELO ([id number]), story editor HERMINIA SIMON ([id number]) on 01/30/2025 9:12:39 AM Referred By: Confirmed By: CONSUELO BROWN MD
--- NOTE | 2025-01-28 07:00 | RAD_ITS ---
PROCEDURE: CHEST 1 VIEW (PORTABLE) 01/28/2025 REASON FOR EXAM: DYSPNEA TECHNIQUE: Frontal view of the chest. COMPARISON: 12/08/2024 FINDINGS: Hardware: PICC line appears to have been removed. Overlying EKG leads noted in the chest wall Heart: Cardiomegaly. Lungs: Prominent airspace opacity in the right upper lobe with peribronchial cuffing seen throughout the right hilum. Prominent interstitial and airspace opacity seen throughout the lung. Fullness of the right hilum appears increased since previous exam. No pneumothorax present. No effusion seen. Bones: Stable RAD/Chest 1 View (Portable) IMPRESSION: Increased opacity throughout the lung with pulmonary venous congestion and alve olar edema likely reflective of congestive heart failure. Superimposed pneumonia can not be excluded. Reading Location: [id number]
[2025-01-28 07:07] LABS: Hematocrit 31.2 % (37-47); Hemoglobin 9.6 g/dL (12.0-15.0); Immature Granulocytes Count 0.100 X10^3/uL (0.0-0.0); Mean Corp Hgb Conc 30.8 g/dL (32-36); Mean Corpuscular Volume 91.0 fL (81-99); Mean Platelet Vol. 9.7 fl (6.2-12.0); NRBC Flagged by Analyzer 0 % (0-5); Platelet Count 299 K/mm3 (150-450); RBC Distribution Width CV 15.9 % (11.6-14.6); RBC Distribution Width SD 53.6 fl (35.1-43.9); Red Blood Count 3.43 M/mm3 (4.2-5.4); White Blood Count 10.2 K/mm3 (4.4-11.0)
[2025-01-28 07:08] LABS: Allen Test Positive; Base Excess -7 mmol/L (-2 to +2); Comment 14/8; FI02 50.0; PO2 78 mmHG (75-100); RR 12; SITE R Radial; SO2 93 % (94-98)
--- NOTE | 2025-01-28 07:26 | EDS_ITS ---
HPI History of Present Illness Chief Complaint: Shortness of Breath Informant: patient, family and EMS Narrative Narrative: Patient is a 64-year-old female with history of hypertension type 2 diabetes ischemic cardiomyopathy and recent admission in December for respiratory failure requiring intubation. According to patient she was doing well throughout the day on Tuesday but the Tuesday night began to feel slightly crummy. She states she awoke this morning and felt funny. According to the daughter this morning when she checked on her she did not look like she was breathing well and her mental status was depressed. Secondary to this she called EMS. EMS states when they arrived her mental status was diminished but she was still awake and responding to questions but her pulse ox was 66% on room air and reported she does not have need for baseline oxygen. EMS reports they gave her a DuoNeb as she does have a history of smoking and placed on a nonrebreather but even with this there was only mild improvement to her pulse ox and work of breathing. [facility] Medical History Hypertension NSTEMI (non-ST elevated myocardial infarction) Heart failure with reduced left ventricular function Respiratory failure Septic shock Hyperlipidemia DM type 2 (diabetes mellitus, type 2) Anemia Wears glasses Post-menopausal Alcohol use Depression History of steroid therapy Arthritis Uses wheelchair Bladder disease Low iron Stroke/cerebrovascular accident Dietary restriction History of renal disease Chronic cough Smoker Shortness of breath on exertion History of pain when walking DM type 2 (diabetes mellitus, type 2) Amputation of one or more toes Peripheral arterial disease Gas gangrene Osteomyelitis Hyperlipidemia Home Medications ?Medication ?Instructions ?Recorded ?Last Taken ?Type aspirin 81 mg chewable tablet 81 mg PO DAILY@0800 Bloo d thinner 12/27/1501/07 History ferrous sulfate 325 mg (65 mg 325 mg PO DAILY 01/01/22 Unknown History iron) tablet atorvastatin 40 mg tablet 40 mg PO QHS cholesterol Unknown History bupropion HCl 150 mg 24 hr tablet, 150 mg PO DAILY simran n 12/03/24 Unknown History extended release ezetimibe 10 mg tablet 10 mg PO DAILY cholesterol 0 12/03/24 Unknown History glipizide 2.5 mg tablet, extended 2.5 mg PO DAILY diab etes 12/03/24 Unknown History release 24 hr metformin 1,000 mg tablet 1,000 mg PO BID diabetes Unknown History pioglitazone 30 mg tablet 30 mg PO DAILY diabetes 11/06 11/29 Unknown History amlodipine 10 mg tablet 10 mg PO DAILY #30 tabs 09/28 Unknown Rx carvedilol 3.125 mg tablet 3.125 mg PO BIDCM #60 tabs 12/11/24 Unknown Rx empagliflozin 10 mg tablet 10 mg PO DAILY #30 tabs 09/28 Unknown Rx (Jardiance) clopidogrel 75 mg tablet 75 mg PO QDAY 01/08/25 Unkno wn History azelastine 137 mcg (0.1 %) nasal 1 spray intranasal BI D 01/16/25 Unknown History spray fluticasone propionate 50 1 spray intranasal BID 01/16 Unknown History mcg/actuation nasal spray,suspension lisinopril 5 mg tablet 5 mg PO QDAY #90 tabs Unknown Rx Allergy/AdvReac Type Severity Reaction Status Date / Time latex Allergy Rash Verified 01/28/25 06:44 Surgical History H/O biopsy of kidney Hx of eye surgery Hx of left cataract extraction Social History household members: none Smoking Status: Current every day smoker tobacco type: cigarettes substance use type: does not use ROS ROS ED Constitutional Constitutional ED: Reports sweats; Denies chills or fever(s) ENT ENT ED: Denies rhinorrhea or sore throat Cardiovascular Cardiovascular: Reports chest pain; Denies palpitations or racing heartbeat Respiratory/Chest Respiratory/Chest: Reports dyspnea and dyspnea on exertion; Denies cough Gastrointestinal Gastrointestinal: Denies abdominal pain, diarrhea, nausea or vomiting Genitourinary Genitourinary ED: Denies dysuria Musculoskeletal Musculoskeletal: Denies back pain or myalgias Integumentary Denies rash Neurologic Neurologic: Reports weakness; Denies headache(s) Hematologic/Lymphatic Hematologic/Lymphatic: Denies easy bleeding or easy bruising Allergic/Immunologic Allergic/Immunologic ED: Denies mouth swelling or tongue swelling EXAM Physical Exam Const Vital Signs: 01/28/25 06:44 01/28/25 06:49 01/28/25 06:50 Temperature 96.5 F L 96.5 F L Temperature Source Axillary Axillary Pulse Rate 87 85 Respiratory Rate 32 H 32 H Respiratory Effort Respiratory Depth Respiratory Pattern Blood Pressure 102/87 H 102/87 H Blood Pressure Mean 92 92 Pulse Ox 76 87 91 Oxygen Delivery Method High Flow Bi-pap Bi-pap Oxygen Flow Rate (L/min) 8 Fraction of Inspired Oxygen (FIO2) 6 01/28/25 06:50 01/28/25 06:51 Temperature Temperature Source Pulse Rate 78 Respiratory Rate 25 H Respiratory Effort Short of Breath Labored Accessory Muscle Use Respiratory Depth Shallow Respiratory Pattern Tachypnea Tachypnea Blood Pressure Blood Pressure Mean Pulse Ox 94 Oxygen Delivery Method Bi-pap Oxygen Flow Rate (L/min) Fraction of Inspired Oxygen (FIO2) 50 Positive well nourished, well developed and obese Constitutional Narrative: Patient is in moderate respiratory distress with tachypnea and accessory muscle use and dyspnea with speech. General Appearance ED: well developed, diaphoretic and pallor Nutritional Appearance: obese HEENT Reports moist mucous membranes HEENT Narrative: Normocephalic atraumatic No tongue or lip swelling no oral lesions no airway edema or compromise Eyes PERRL and EOMs intact bilaterally Eyes Narrative: Positive subconjunctival pallor noted bilaterally General Eye ED: Yes pale conjunctiva; Negative for scleral icterus Neck supple Neck Narrative: Trace JVD noted bilaterally Chest Wall palpation of chest normal Chest Narrative: No bony deformity or subcutaneous emphysema noted Resp Resp Narrative: Patient is in moderate respiratory distress with tachypnea accessory muscle use and dyspnea with speech Breath sounds are diminished throughout with diffuse crackles Cardio regular rate and regular rhythm Rate: other Other Details: Radial and carotid pulses are equal and symmetric GI non-tender, non-distended and no masses GI Narrative: Soft nontender nondistended with hypoactive bowel sounds No voluntary guarding or rigidity or pulsatile mass No peritoneal signs No fluid wave Auscultation: hypoactive bowel sounds Palpation: soft Extremity Extremity Narrative: +2-3 pitting edema to the right lower extremity. +1 pitting edema to the left lower extremity Negative Homans' sign bilaterally According to patient leg swelling is normal for her Neuro oriented x3, CN's II-XII intact bilaterally and no sensory deficits noted Neuro Narrative: Patient is obtunded with GCS of 14. She will open her eyes to voice There is no obvious focal neurologic deficit as patient can feel and move all extremities at baseline Sensorium / Orientation: orientation impaired Psych Psych Narrative: Patient has a depressed/obtunded affect Skin no rashes or lesions noted Skin Narrative: Skin is pale and diaphoretic General Skin Exam: pallor MDM MDM MDM Narrative Medical decision making narrative: Patient arrived to the ER with respiratory distress as she has tachypnea accessory muscle use and dyspnea with speech. With this she is only satting in the mid to high 70s on a nonrebreather. Her physical exam suggest volume overload as a cause of her symptoms and therefore she was placed on BiPAP. A ABG was obtained to rule out hypercarbia. Chest x-ray was ordered to confirm volume overload versus pneumonia. The patient denied any recent sick symptoms or sick exposures but as symptoms could also be related to viral infection such as COVID influenza or RSV a viral swab will be obtained. She is pale and there is concern for acute blood loss anemia. A proBNP will be obtained to further assess for CHF and kidney function will be checked as she does have a remote history of renal insufficiency. Patient's hemoglobin is low at 9.6 per chart review reveals this is baseline and therefore there is no need for blood transfusion. The EKG revealed no cardiac dysrhythmia or ischemic changes. As her pulse ox was 66% on room air I feel the troponin would be falsely elevated secondary to the hypoxia and as the EKG does not reveal STEMI or ischemic findings I do not feel the need to obtain an emergent troponin at almost likely be elevated from the hypoxia. Patient's chest x-ray did show changes consistent with volume overload. This correlates with the fact that with BiPAP and Lasix on board her work of breathing and hypoxia have greatly improved. As the patient reported does not have access to oxygen at home and is now requiring noninvasive ventilation with BiPAP she is not safe for discharge and therefore the hospitalist was contacted and agrees to accept the patient to their service for continued care History & Record Review Discussion w/independent historian: EMS personnel, Patient and Family Lab Data Attestation: I reviewed the patient's lab results. Labs: Laboratory Results - last 24 hr 01/28/25 01/28/25 06:30 07:40 WBC 10.2 RBC 3.43 L Hgb 9.6 L Hct 31.2 L MCV 91.0 MCH 28.0 MCHC 30.8 L RDW Std Deviation 53.6 H RDW Coeff of Nuno 15.9 H Plt Count 299 MPV 9.7 Immature Gran % (Auto) 1.000 H Neut % (Auto) 71.3 H Lymph % (Auto) 16.5 L [place] % (Auto) 7.2 Eos % (Auto) 3.6 Baso % (Auto) 0.4 Absolute Neuts (auto) 7.3 Absolute Lymphs (auto) 1.69 Nucleated RBC % 0 Sodium 143 Potassium 4.5 Chloride 108 Carbon Dioxide 18.6 L Anion Gap 16 H BUN 26 H Creatinine 1.63 H Estim Creat Clear Calc 31.76 L Est GFR (MDRD) Non-Af 35 L BUN/Creatinine Ratio 16.0 Glucose 131 H Calcium 9.7 Magnesium 1.8 NT pro BNP II 3339 H Urine Color Yellow Urine Clarity Cloudy Urine pH 6.0 Ur Specific [place] 1.015 Urine Protein 100 H Urine Glucose (UA) Normal Urine Ketones Negative Urine Occult Blood 250 H Urine Nitrite Negative Urine Bilirubin Negative Urine Urobilinogen Normal Ur Leukocyte Esterase 500 H ABG Data ABG results: ABG 01/28/25 07:04 Specimen Type ART Sample Site R Radial pH 7.26 L Bicarbonate Actual 20.0 L Total CO2 21 Base Excess -7 L O2 Saturation 93 L O2 % 50.0 ABG pCO2 44.9 ABG pO2 78 Aftab Test Positive Respiration Rate 12 O2 Delivery Device BiPAP Vent Mode BiLevel Clinical Comments 18/10 Radiography Diagnostic Testing: Clinical Impression(s) from Imaging Studies Chest X-Ray 01/28/25 07:00 IMPRESSION: Increased opacity throughout the lung with pulmonary venous congestion and alveolar edema likely reflective of congestive heart failure. Superimposed pneumonia can not be excluded. Reading Location: [facility] 1 view chest x-ray as interpreted by the emergency medicine physician reveals cardiomegaly with pulmonary vascular congestion consistent with CHF Management Discussion w/another healthcare provider: Hospitalist Critical Care Time Critical Care Time: Yes Critical care time (excluding procedures): Discussing w/Patient &/or Family/News Gathering Technician, Discussing w/Consultants, Performing Direct Patient Care at Bedside and - (Critical care time of 31 minutes) Discharge Plan Dx/Rx/DC Orders Clinical Impression: Acute respiratory failure with hypoxia, CHF exacerbation, Type 2 diabetes mellitus, Ischemic cardiomyopathy Disposition Disposition: [facility]
[2025-01-28 07:34] LABS: Anion Gap 16 (5-15); BUN 26 mg/dL (4-19); BUN/Creat Ratio 16.0 RATIO (10-20); Calcium,Total 9.7 mg/dL (7.6-11.0); Carbon Dioxide 18.6 mmol/L (21.0-32.0); Chloride 108 mmol/L (98-108); Estimated Creatinine Clearance 31.76 ml/min (50-250); Glucose 131 mg/dL (70-99); Magnesium 1.8 mg/dL (1.5-2.2); Potassium 4.5 mmol/L (3.3-5.1); Pro- Brain NATRIURETIC PEPTIDE 3339 pg/mL (<=900)
[2025-01-28 07:48] LABS: Mucous, Urine 0 SEEN /hpf (<or=2+); Squamous Epithelial Cells - UA 0 SEEN /hpf (5-10)
[2025-01-28 07:50] LABS: Color, Urine Yellow (Yellow); Glucose, Dipstick Normal (Normal); Ketone-Dipstick Negative (Negative); Leukocyte Esterase-Dipstick 500 /ul (Negative); Nitrite-Dipstick Negative (Negative); Occult Blood-Urine 250 /ul (Negative); Protein-Dipstick 100 mg/dl (Negative); Specific Gravity, Urine 1.015 (1.002-1.030); Urine Bilirubin Dipstick Negative (Negative)
--- NOTE | 2025-01-28 07:50 | PCM.HP.STD ---
HPI - General General Date of Admission: 01/28/25 Date of Service: 01/28/25 Chief Complaint: shortness of breath HPI Narrative ROSALINO LEVY, is a 64 F with a PMH as outlined who was admitted via the ED on 01/28/2025 with a complaint of shortness of breath. SHe was recently admitted in December 2024 for acute hypoxic respiratory failure requiring intubation. She was eventually extubated and discharged home on room air. She was fine and said she had quit smoking. She started feeling short of breath and weak the day before admission. She said her symptoms persisted and she woke up on the morning of admission feeling funny. Her daughter checked on her the day of admission and patient was noted to be short of breath. EMS was therefore called and she was found to be saturating at 66% on room air. She was given breathing treatments and brought to the ED where she had to be started on bipap due to her increased work of breathing. Vitals in the ED were 96.5F, OK of 78, BP of 102/87 and RR of 25. She was saturating at 94% on BIPAP. CBC showed hb of 9.6, wbc of 10.2 and platelets of 299. ABG done in the ED showed pH of 7.26 with bicarb of 44.9 and pO2 of 78. This was done while she was on the BiPAP. Chemistry showed sodium of 143 with potassium of 4.5, bicarb of 18.6 and anion gap of 16. Creatinine was 1.63 and proBNP was 3339. Troponin series was yet to be ordered. Urinalysis showed cloudy urine with leukocyte esterase of 500, and bacteria and WBC pending. Chest x-ray showed increased opacity throughout the lung with pulmonary venous congestion and alveolar edema likely reflective of congestive heart failure with superimposed pneumonia cannot be excluded. She is being admitted to be managed for acute hypoxic respiratory failure. Patient did have SIRS criteria due to tachypnea and hypothermia but this can be explained by acute respiratory failure due to CHF exacerbation. Patient does not have sepsis. [facility] Medical History Hypertension NSTEMI (non-ST elevated myocardial infarction) Heart failure with reduced left ventricular function Respiratory failure Septic shock Hyperlipidemia DM type 2 (diabetes mellitus, type 2) Anemia Wears glasses Post-menopausal Alcohol use Depression History of steroid therapy Arthritis Uses wheelchair Bladder disease Low iron Stroke/cerebrovascular accident Dietary restriction History of renal disease Chronic cough Smoker Shortness of breath on exertion History of pain when walking DM type 2 (diabetes mellitus, type 2) Amputation of one or more toes Peripheral arterial disease Gas gangrene Osteomyelitis Hyperlipidemia Home Medications ?Medication ?Instructions ?Recorded ?Last Taken ?Type aspirin 81 mg chewable tablet 81 mg PO DAILY@0800 Blood thinner 12/27/15 01/27/25 History ferrous sulfate 325 mg (65 mg 325 mg PO DAILY SUPPLEMENT 01/01/22 01/27/25 History iron) tablet atorvastatin 40 mg tablet 40 mg PO QHS cholesterol 12/03/24 01/27/25 History bupropion HCl 150 mg 24 hr tablet, 150 mg PO DAILY pain 12/03/24 01/27/25 History extended release ezetimibe 10 mg tablet 10 mg PO DAILY cholesterol 12/03/24 01/27/25 History glipizide 2.5 mg tablet, extended 2.5 mg PO DAILY diabetes 12/03/24 01/27/25 History release 24 hr metformin 1,000 mg tablet 1,000 mg PO BID diabetes 12/03/24 01/27/25 History pioglitazone 30 mg tablet 30 mg PO DAILY diabetes 12/03/24 01/27/25 History amlodipine 10 mg tablet 10 mg PO DAILY htn #30 tabs 12/11/24 01/27/25 Rx carvedilol 3.125 mg tablet 3.125 mg PO BIDCM HTN #60 tabs 12/11/24 01/27/25 Rx azelastine 137 mcg (0.1 %) nasal 1 spray intranasal BID NASAL DRIP 01/16/25 01/27/25 History spray fluticasone propionate 50 1 spray intranasal BID ALLERGIES 01/16/25 01/27/25 History mcg/actuation nasal spray,suspension lisinopril 5 mg tablet 5 mg PO QDAY HTN #90 tabs 01/16/25 01/27/25 Rx Allergy/AdvReac Type Severity Reaction Status Date / Time latex Allergy Rash Verified 01/28/25 06:44 Surgical History H/O biopsy of kidney Hx of eye surgery Hx of left cataract extraction Social History household members: none Smoking Status: Current every day smoker tobacco type: cigarettes substance use type: does not use ROS Constitutional Constitutional: Reports fatigue, malaise and weakness; Denies anorexia, chills or fever(s) Eyes Eyes: Denies change in vision ENT HEENT: Denies dysphagia, headache(s) or sore throat Cardiovascular Cardiovascular: Reports dyspnea on exertion; Denies edema, lightheadedness, orthopnea or palpitations Respiratory/Chest Respiratory/Chest: Reports dyspnea, shortness of breath at rest and shortness of breath with exertion; Denies cough, hemoptysis or productive cough Gastrointestinal Gastrointestinal: Denies constipation, diarrhea, nausea or vomiting Genitourinary Genitourinary: Denies dysuria Musculoskeletal Musculoskeletal: Denies back pain Neurologic Neurologic: Denies confusion, dizziness, focal weakness, headache(s) or seizures Psychiatric Psychiatric: Denies anxiety or depression Vital Signs Vital Signs Vital Signs: 01/28/25 06:44 01/28/25 06:49 01/28/25 06:50 Temperature 96.5 F L 96.5 F L Temperature Source Axillary Axillary Pulse Rate 87 85 Respiratory Rate 32 H 32 H Respiratory Effort Respiratory Depth Respiratory Pattern Blood Pressure 102/87 H 102/87 H Blood Pressure Mean 92 92 Pulse Ox 76 87 91 Oxygen Delivery Method High Flow Bi-pap Bi-pap Oxygen Flow Rate (L/min) 8 Fraction of Inspired Oxygen (FIO2) 6 01/28/25 06:50 01/28/25 06:51 Temperature Temperature Source Pulse Rate 78 Respiratory Rate 25 H Respiratory Effort Short of Breath Labored Accessory Muscle Use Respiratory Depth Shallow Respiratory Pattern Tachypnea Tachypnea Blood Pressure Blood Pressure Mean Pulse Ox 94 Oxygen Delivery Method Bi-pap Oxygen Flow Rate (L/min) Fraction of Inspired Oxygen (FIO2) 50 Weight Weight: 160 lb 14.999 oz Body Mass Index (BMI) 29.4 Physical Exam Const alert and oriented x3 Constitutional Narrative: frail, weak. On BIPAP at time of review. General Appearance: cooperative HEENT normocephalic, head/scalp atraumatic and hearing grossly normal bilaterally HEENT Narrative: dry oral mucosa Mouth: oral and palatal mucosa normal Eyes EOMs intact bilaterally and conjunctivae normal Neck supple Resp Resp Narrative: on BIPAP. Moderately diminished breath sounds bilaterally, bilateral crackles. NO wheezing. Tachypneic Cardio regular rate, regular rhythm, S1 normal heart sound, S2 normal heart sound and no murmurs GI normal to inspection, nondistended, normoactive bowel sounds, soft to palpation and non-tender Extremity normal to inspection, full ROM and no clubbing, cyanosis or edema Neuro oriented x3, moves all extremities and no focal motor deficits Sensorium / Orientation: awake and alert Psych Psych Narrative: flat affect Results Lab / Micro Data 01/28/25 06:30 01/28/25 08:30 Labs: Laboratory Results - last 24 hr 01/28/25 06:30: WBC 10.2, RBC 3.43 L, Hgb 9.6 L, Hct 31.2 L, MCV 91.0, MCH 28.0, MCHC 30.8 L, RDW Std Deviation 53.6 H, RDW Coeff of Nuno 15.9 H, Plt Count 299, MPV 9.7, Immature Gran % (Auto) 1.000 H, Neut % (Auto) 71.3 H, Lymph % (Auto) 16.5 L, [place] % (Auto) 7.2, Eos % (Auto) 3.6, Baso % (Auto) 0.4, Absolute Neuts (auto) 7.3, Absolute Lymphs (auto) 1.69, Nucleated RBC % 0, Sodium 143, Potassium 4.5, Chloride 108, Carbon Dioxide 18.6 L, Anion Gap 16 H, BUN 26 H, Creatinine 1.63 H, Estim Creat Clear Calc 31.76 L, Est GFR (MDRD) Non-Af 35 L, BUN/Creatinine Ratio 16.0, Glucose 131 H, Calcium 9.7, Magnesium 1.8, NT pro BNP II 3339 H ABG Data ABG results: ABG 01/28/25 07:04 Specimen Type ART Sample Site R Radial pH 7.26 L Bicarbonate Actual 20.0 L Total CO2 21 Base Excess -7 L O2 Saturation 93 L O2 % 50.0 ABG pCO2 44.9 ABG pO2 78 Aftab Test Positive Respiration Rate 12 O2 Delivery Device BiPAP Vent Mode BiLevel Clinical Comments 18/10 Imaging Radiology Impression Chest X-Ray 01/28/25 07:00 IMPRESSION: Increased opacity throughout the lung with pulmonary venous congestion and alveolar edema likely reflective of congestive heart failure. Superimposed pneumonia can not be excluded. Reading Location: [facility] Assessment & Plan Assessment/Plan (1) Acute respiratory failure with hypoxia: (2) CHF exacerbation: PLAN: Plan #Acute hypoxic respiratory failure due ot acute exacerbation of heart failure with reduced EF Admit to ICU as she is currently on BiPAP. Was admitted with a complaint of shortness of breath that started acutely this morning. She was recently admitted with similar symptoms in December 2024 and had to be intubated. Chest x-ray showed evidence of fluid overload. EKG showed no acute ST changes. She was given a dose of IV Lasix in the ED. Will continue diuresing with IV Lasix 40 mg twice daily. Cardiology consulted. Wean off BiPAP as tolerated. Keep n.p.o. for now until she is able to wean off BiPAP and then will place on 1800-calorie cardiac diet. Titrate oxygen to maintain saturation above 90%. Cardiology and critical care consulted. Had 2D echo recently which showed EF of 45% and an area of anterior and apical hypokinesis to akinesis. She had a Lexiscan prior to her discharge recently which showed an anterior apical infarct with no significant reversible ischemia. patient SIRS criteria, with tachycardia and hypothermia. However this can be explained by the acute hypoxic respiratory failure. Patient therefore has no sepsis. #CAD: 2D echo as above for recent admission. Was told that she would need cardiac cath on outpatient basis. Cardiology consulted and she would likely need cardiac cath during this admission. On aspirin and high intensity statin #Hypertension: On amlodipine and carvedilol as well as lisinopril #Hyperlipidemia: On ezetimibe #Type 2 diabetes mellitus: On pioglitazone and metformin as well as Jardiance. Per daughter she has not been taking the Jardiance due to the prohibitive cost. Insulin sliding scale. Accu-Cheks ACHS. #History of depression: #CKD: Recently had a kidney biopsy but results of which are pending. Creatinine is 1.53. Baseline creatinine is around 1. Results of kidney biopsy from 01/09/2025 still pending. DVT prophylaxis: lovenox CODE STATUS: Full code Patient and daughter counseled extensively about different types of CODE STATUS including full code, DNR CCA and DNR CCA. Patient elects to be full code. Total urvi-eu-ispv time 16 minutes. Charges/Coding Visit Charges Inpatient E&M: 87997 Init Hosp L3 Procedures Hospitalists Procedures: 62908 Advncd Care Plan 30 Min
[2025-01-28 07:58] LABS: Red Blood Cells-Urine 10-25 SEEN /hpf (0-5)
[2025-01-28 08:31] LABS: Troponin T High Sensitivity 30 ng/L (<=14)
[2025-01-28 09:18] LABS: Troponin T High Sens 2 HR 34 ng/L (<=14)
--- NOTE | 2025-01-28 09:39 | EX.PCM.CONCC ---
Assessment & Plan Assessment/Plan (1) Acute respiratory failure with hypoxia: PLAN: Plan RECOMMENDATIONS: 1. Continue to wean supplemental oxygen to maintain saturations at or above 90%. 2. Diuresis as tolerated. 3. Recommend continue use of BiPAP therapy, if needed. 4. Continue appropriate DVT prophylaxis. IMPRESSIONS: 1. Acute hypoxemic respiratory failure Most likely secondary to acute decompensated heart failure. The findings noted on chest imaging are likely the sequelae of pulmonary edema and unlikely to represent infection. No other source of infection has been identified. Therefore, sepsis has been ruled out from my perspective. Given the patient's rapid improvement from a respiratory perspective with IV Lasix and BiPAP, I strongly suspect CHF is the etiology for her presenting symptoms. Cardiology has been consulted to assist with medical management. In the interim, continue diuresis as tolerated by hemodynamics and renal function. 2. History of chronic kidney disease/anemia/diabetes mellitus/peripheral vascular disease/hypertension Complicates care, management, recovery and prognosis. Continue home medications as indicated. This note was generated with [employer] dictation software. It may contain incorrect words, spelling, and punctuation that were not noted in checking the note before signing. HPI Consult Data Date of Consult: 01/28/25 HPI Narrative Reason for Consultation: Respiratory failure HPI Narrative: The patient is a 64-year-old female, with a history as outlined below, who presented to the emergency department via EMS with complaints of chest pain and shortness of breath. The patient was last admitted to the hospital in December 2024 with sepsis and acute respiratory failure with hypoxemia and hypercapnia, which was felt to be secondary to bilateral pneumonia coupled with a component of CHF. The patient was ultimately discharged home on December 11. The patient did not require supplemental oxygen at the time of her discharge. She was noted during that hospitalization to have a depressed ejection fraction at 45%. The patient then followed up with Dr. Solorio of cardiology on January 16. Goal-directed medical therapy was continued. On presentation to the emergency department, the patient was documented to have a temperature of 96.5 degrees. She was notably tachypneic but otherwise hemodynamically stable. She was initially documented to be saturating 76% on 8 L/min. The patient was subsequently placed on BiPAP therapy. Initial laboratory evaluation revealed a normal white blood cell count. Hemoglobin and platelet count were stable. Arterial blood gas was notable for a pH of 7.26 with a pCO2 of 45 and pO2 of 78. Chemistry profile was notable for a bicarbonate of 19 with an anion gap of 16 and creatinine of 1.63. Troponin was mildly elevated at 30. BNP was increased at 3339. Urine analysis was positive for leukocyte esterase and greater than 100 white blood cells. Chest x-ray demonstrated bilateral airspace opacities and cardiomegaly. COVID, influenza and RSV PCR's were negative. The patient denied any recent sick contact exposure. She denied any subjective fevers or chills. She denied the presence of a productive cough. At the time of my evaluation with the patient in the emergency department, she had already been weaned off of BiPAP therapy after having received IV Lasix and was maintaining saturations on 2 L/min. [facility] Medical History Hypertension NSTEMI (non-ST elevated myocardial infarction) Heart failure with reduced left ventricular function Respiratory failure Septic shock Hyperlipidemia DM type 2 (diabetes mellitus, type 2) Anemia Wears glasses Post-menopausal Alcohol use Depression History of steroid therapy Arthritis Uses wheelchair Bladder disease Low iron Stroke/cerebrovascular accident Dietary restriction History of renal disease Chronic cough Smoker Shortness of breath on exertion History of pain when walking DM type 2 (diabetes mellitus, type 2) Amputation of one or more toes Peripheral arterial disease Gas gangrene Osteomyelitis Hyperlipidemia Home Medications ?Medication ?Instructions ?Recorded ?Last Taken ?Type aspirin 81 mg chewable tablet 81 mg PO DAILY@0800 Blood thinner 12/27/15 01/27/25 History ferrous sulfate 325 mg (65 mg 325 mg PO DAILY SUPPLEMENT 01/01/22 01/27/25 History iron) tablet atorvastatin 40 mg tablet 40 mg PO QHS cholesterol 12/03/24 01/27/25 History bupropion HCl 150 mg 24 hr tablet, 150 mg PO DAILY pain 12/03/24 01/27/25 History extended release ezetimibe 10 mg tablet 10 mg PO DAILY cholesterol 12/03/24 01/27/25 History glipizide 2.5 mg tablet, extended 2.5 mg PO DAILY diabetes 12/03/24 01/27/25 History release 24 hr metformin 1,000 mg tablet 1,000 mg PO BID diabetes 12/03/24 01/27/25 History pioglitazone 30 mg tablet 30 mg PO DAILY diabetes 12/03/24 01/27/25 History amlodipine 10 mg tablet 10 mg PO DAILY htn #30 tabs 12/11/24 01/27/25 Rx carvedilol 3.125 mg tablet 3.125 mg PO BIDCM HTN #60 tabs 12/11/24 01/27/25 Rx azelastine 137 mcg (0.1 %) nasal 1 spray intranasal BID NASAL DRIP 01/16/25 01/27/25 History spray fluticasone propionate 50 1 spray intranasal BID ALLERGIES 01/16/25 01/27/25 History mcg/actuation nasal spray,suspension lisinopril 5 mg tablet 5 mg PO QDAY HTN #90 tabs 01/16/25 01/27/25 Rx Allergy/AdvReac Type Severity Reaction Status Date / Time latex Allergy Rash Verified 01/28/25 06:44 Surgical History H/O biopsy of kidney Hx of eye surgery Hx of left cataract extraction Social History household members: none Smoking Status: Current every day smoker tobacco type: cigarettes substance use type: does not use ROS ROS Narrative 10 systems were reviewed with pertinent positives as noted in the HPI above. Physical Exam Const alert, oriented x3 and no apparent distress Constitutional Narrative: Family is present at the bedside. General Appearance: cooperative HEENT normocephalic and head/scalp atraumatic Eyes PERRL, EOMs intact bilaterally and conjunctivae normal Neck supple General: trachea midline Chest inspection of chest normal Resp normal respiratory effort and no use of accessory muscles Auscultation: rales and wheezes Cardio regular rate and regular rhythm GI soft to palpation and non-tender Extremity no clubbing, cyanosis or edema Skin no rashes or lesions noted Neuro CN's II-XII intact bilaterally, moves all extremities and no focal motor deficits Psych cooperative and affect normal Lab / Micro Data 01/28/25 06:30 01/28/25 06:30 Labs: Laboratory Results - last 24 hr 01/28/25 06:30: WBC 10.2, RBC 3.43 L, Hgb 9.6 L, Hct 31.2 L, MCV 91.0, MCH 28.0, MCHC 30.8 L, RDW Std Deviation 53.6 H, RDW Coeff of Nuno 15.9 H, Plt Count 299, MPV 9.7, Immature Gran % (Auto) 1.000 H, Neut % (Auto) 71.3 H, Lymph % (Auto) 16.5 L, [place] % (Auto) 7.2, Eos % (Auto) 3.6, Baso % (Auto) 0.4, Absolute Neuts (auto) 7.3, Absolute Lymphs (auto) 1.69, Nucleated RBC % 0, Sodium 143, Potassium 4.5, Chloride 108, Carbon Dioxide 18.6 L, Anion Gap 16 H, BUN 26 H, Creatinine 1.63 H, Estim Creat Clear Calc 31.76 L, Est GFR (MDRD) Non-Af 35 L, BUN/Creatinine Ratio 16.0, Glucose 131 H, Calcium 9.7, Magnesium 1.8, Troponin T High Sens 30 H D, NT pro BNP II 3339 H 01/28/25 07:40: Urine Color Yellow, Urine Clarity Cloudy, Urine pH 6.0, Ur Specific [place] 1.015, Urine Protein 100 H, Urine Glucose (UA) Normal, Urine Ketones Negative, Urine Occult Blood 250 H, Urine Nitrite Negative, Urine Bilirubin Negative, Urine Urobilinogen Normal, Ur Leukocyte Esterase 500 H, Urine RBC 10-25 SEEN, Urine WBC >100 SEEN, Ur Squamous Epith Cells 0 SEEN, Urine Bacteria 0 SEEN, Urine Mucus 0 SEEN 01/28/25 08:30: Troponin T Hi Sens 2 Hr 34 H Micro: Microbiology 01/28/25 06:58 Mucosa - Nose SARS-CoV-2, Influenza & RSV (PCR) - Final ABG Data ABG results: ABG 01/28/25 07:04 Specimen Type ART Sample Site R Radial pH 7.26 L Bicarbonate Actual 20.0 L Total CO2 21 Base Excess -7 L O2 Saturation 93 L O2 % 50.0 ABG pCO2 44.9 ABG pO2 78 Aftab Test Positive Respiration Rate 12 O2 Delivery Device BiPAP Vent Mode BiLevel Clinical Comments 18/10 Imaging Radiology Impression Chest X-Ray 01/28/25 07:00 IMPRESSION: Increased opacity throughout the lung with pulmonary venous congestion and alveolar edema likely reflective of congestive heart failure. Superimposed pneumonia can not be excluded. Reading Location: [id number] Charges/Coding Visit Charges Inpatient E&M: 15995 Init Hosp L3
[2025-01-28 11:34] LABS: BETA-HYDROXYBUTYRATE 1.4 mmol/L (0.0-0.3); Procalcitonin 0.04 ng/mL (<=0.10)
[2025-01-28 11:55] LABS: Anion Gap 15 (5-15); BUN 29 mg/dL (4-19); BUN/Creat Ratio 19.1 RATIO (10-20); Calcium,Total 9.6 mg/dL (7.6-11.0); Carbon Dioxide 18.4 mmol/L (21.0-32.0); Chloride 108 mmol/L (98-108); Estimated Creatinine Clearance 33.31 ml/min (50-250); Glucose 136 mg/dL (70-99); Potassium 5.0 mmol/L (3.3-5.1)
[2025-01-28 12:43] LABS: Troponin T High Sens 4 HR 70 ng/L (<=14)
--- NOTE | 2025-01-28 14:26 | CHAPLAIN ---
Type of Pastoral Visit _x__ Initial Visit ___ Follow-up Visit ___ On-call Visit ___ General Patient Visit ___ Spiritual Assessment ___ Family Conference ___ Bereavement ___ Rapid Response ___ Code Blue ___ Other (describe below) Pastoral Care Referral From ___ Patient _x__ Family ___ Nurse ___ Physician ___ [employer] Manager ___ [place] ___ Other (describe below) Sacrament/Intervention _x__ Active listening ___ Anointing ___ Religious ___ Bereavement ___ Communion ___ Annie exploration ___ ___ Life review ___ Prayer ___ Reconciliation ___ Sacrament of Sick _x__ Supportive presence ___ Wedding ___ Other (describe below) Pastoral Comments patient and two family members are in the room; pt says that she is feeling some better and is hopeful; otherwise pt has little to say or to request in needs; family members add that pt is better and that she needed to be in the hospital; daughter gives some family information but no other requests
--- NOTE | 2025-01-28 18:59 | PCM.CONS.C ---
Assessment & Plan Assessment/Plan (1) CHF exacerbation: PLAN: Patient presents with an exacerbation of congestive heart failure the etiology is unclear at this particular time. Even though the stress test demonstrated no evidence of ischemia coronary disease needs to be completely excluded. I will therefore discuss with the patient and relatives and consider a cardiac catheterization with limited contrast to see whether 1 can further elucidate the above. It does not appear that valvular disease or hypertension is an etiology here. Anemia could be considered contributing to the congestive heart failure (2) Hypertension: PLAN: Her blood pressure appears under good control at this time I would not recommend we make any changes (3) Ischemic cardiomyopathy: PLAN: She does have a history of ischemic cardiomyopathy with reduced ejection fraction of 45%. (4) History of anterior wall myocardial infarction: PLAN: This was noted on the previous stress test. This will be confirmed with the cardiac catheterization. PLAN: Plan I discussed the overall plan with the patient and her sister. Thank you for allowing me to participate in the care of your patient. Please don't hesitate to call if any issues arise. HPI Consult Data Date of Consult: 01/28/25 HPI Narrative HPI Narrative: ROSALINO LEVY, is a 64 F who presents to the emergency room with shortness of breath which she says has been going on for approximately a week. She is a lady with a history of hypertension, obesity, who was recently admitted to the hospital with hypoxic respiratory failure requiring intubation. She was extubated discharged home she apparently had a stress test which demonstrated evidence of anterior infarct and estimated ejection fraction of 45%. She did not undergo any invasive therapy at that time. On presentation to the emergency room this time she was noted to be saturating at 66% on room air and then was put on BiPAP. EKG demonstrated sinus rhythm with no acute changes. Natruretic peptide was elevated as well as creatinine. She was also given intravenous Lasix and has improved. Cardiology was consulted for further evaluation and management. She does have a history of chronic kidney disease and is also seeing the manager procurement. It appears that the patient had a right kidney mass which was biopsied but it appears from the report that the biopsy was inconclusive and it is not sure whether the above is malignant or not. In addition she has been anemic. [facility] Medical History Hypertension NSTEMI (non-ST elevated myocardial infarction) Heart failure with reduced left ventricular function Respiratory failure Septic shock Hyperlipidemia DM type 2 (diabetes mellitus, type 2) Anemia Wears glasses Post-menopausal Alcohol use Depression History of steroid therapy Arthritis Uses wheelchair Bladder disease Low iron Stroke/cerebrovascular accident Dietary restriction History of renal disease Chronic cough Smoker Shortness of breath on exertion History of pain when walking DM type 2 (diabetes mellitus, type 2) Amputation of one or more toes Peripheral arterial disease Gas gangrene Osteomyelitis Hyperlipidemia Home Medications ?Medication ?Instructions ?Recorded ?Last Taken ?Type aspirin 81 mg chewable tablet 81 mg PO DAILY@0800 Blood thinner 12/27/15 01/27/25 History ferrous sulfate 325 mg (65 mg 325 mg PO DAILY SUPPLEMENT 01/01/22 01/27/25 History iron) tablet atorvastatin 40 mg tablet 40 mg PO QHS cholesterol 12/03/24 01/27/25 History bupropion HCl 150 mg 24 hr tablet, 150 mg PO DAILY pain 12/03/24 01/27/25 History extended release ezetimibe 10 mg tablet 10 mg PO DAILY cholesterol 12/03/24 01/27/25 History glipizide 2.5 mg tablet, extended 2.5 mg PO DAILY diabetes 12/03/24 01/27/25 History release 24 hr metformin 1,000 mg tablet 1,000 mg PO BID diabetes 12/03/24 01/27/25 History pioglitazone 30 mg tablet 30 mg PO DAILY diabetes 12/03/24 01/27/25 History amlodipine 10 mg tablet 10 mg PO DAILY htn #30 tabs 12/11/24 01/27/25 Rx carvedilol 3.125 mg tablet 3.125 mg PO BIDCM HTN #60 tabs 12/11/24 01/27/25 Rx azelastine 137 mcg (0.1 %) nasal 1 spray intranasal BID NASAL DRIP 01/16/25 01/27/25 History spray fluticasone propionate 50 1 spray intranasal BID ALLERGIES 01/16/25 01/27/25 History mcg/actuation nasal spray,suspension lisinopril 5 mg tablet 5 mg PO QDAY HTN #90 tabs 01/16/25 01/27/25 Rx Allergy/AdvReac Type Severity Reaction Status Date / Time latex Allergy Rash Verified 01/28/25 06:44 Surgical History H/O biopsy of kidney Hx of eye surgery Hx of left cataract extraction Social History household members: none Smoking Status: Current every day smoker tobacco type: cigarettes substance use type: does not use Physical Exam Const alert and oriented x3 General Appearance: other Eyes PERRL Resp clear to auscultation bilaterally Cardio regular rate and regular rhythm Heart Sounds: S1 normal and S2 normal Extremity normal capillary refill Psych mental status grossly normal Objective Data Vital Signs: Vital Signs Temp Pulse Resp BP Pulse Ox O2 Del Method O2 Flow Rate 98 F 98 22 H 139/79 H 91 Room Air 2 01/28/25 18:00 01/28/25 18:00 01/28/25 18:00 01/28/25 18:00 01/28/25 18:00 01/28/25 18:00 01/28/25 13:00 FiO2 50 01/28/25 06:50 Oxygen Flow Rate (L/min) 2 Oxygen Delivery Method Room Air Weight: 155 lb 13.869 oz Body Mass Index (BMI) 28.5 Intake & Output: Intake and Output for Last 24 Hours 01/26/25 01/27/25 01/28/25 23:59 23:59 23:59 Intake Total 360 / 360 Output Total 1999 / 1999 Balance -1640 / -1640 Lab / Micro Data 01/28/25 06:30 01/28/25 08:30 Labs: Laboratory Results - last 24 hr 01/28/25 06:30: WBC 10.2, RBC 3.43 L, Hgb 9.6 L, Hct 31.2 L, MCV 91.0, MCH 28.0, MCHC 30.8 L, RDW Std Deviation 53.6 H, RDW Coeff of Nuno 15.9 H, Plt Count 299, MPV 9.7, Immature Gran % (Auto) 1.000 H, Neut % (Auto) 71.3 H, Lymph % (Auto) 16.5 L, [place] % (Auto) 7.2, Eos % (Auto) 3.6, Baso % (Auto) 0.4, Absolute Neuts (auto) 7.3, Absolute Lymphs (auto) 1.69, Nucleated RBC % 0, Sodium 143, Potassium 4.5, Chloride 108, Carbon Dioxide 18.6 L, Anion Gap 16 H, BUN 26 H, Creatinine 1.63 H, Estim Creat Clear Calc 31.76 L, Est GFR (MDRD) Non-Af 35 L, BUN/Creatinine Ratio 16.0, Glucose 131 H, Calcium 9.7, Magnesium 1.8, Troponin T High Sens 30 H D, NT pro BNP II 3339 H 01/28/25 07:40: Urine Color Yellow, Urine Clarity Cloudy, Urine pH 6.0, Ur Specific [place] 1.015, Urine Protein 100 H, Urine Glucose (UA) Normal, Urine Ketones Negative, Urine Occult Blood 250 H, Urine Nitrite Negative, Urine Bilirubin Negative, Urine Urobilinogen Normal, Ur Leukocyte Esterase 500 H, Urine RBC 10-25 SEEN, Urine WBC >100 SEEN, Ur Squamous Epith Cells 0 SEEN, Urine Bacteria 0 SEEN, Urine Mucus 0 SEEN 01/28/25 08:30: Sodium 141, Potassium 5.0, Chloride 108, Carbon Dioxide 18.4 L, Anion Gap 15, BUN 29 H, Creatinine 1.53 H, Estim Creat Clear Calc 33.31 L, Est GFR (MDRD) Non-Af 37 L, BUN/Creatinine Ratio 19.1, Glucose 136 H, Calcium 9.6, Troponin T Hi Sens 2 Hr 34 H, b-Hydroxybutyric mmol/L 1.4 H, Procalcitonin 0.04 01/28/25 10:45: Lactic Acid < 1.0 01/28/25 11:12: POC Glucose 120 H 01/28/25 11:45: Troponin T Hi Sens 4Hr 70 H* 01/28/25 16:21: POC Glucose 124 H Micro: Microbiology 01/28/25 10:32 Mucosa - Nasopharyngeal Respiratory Panel (PCR) - Final 01/28/25 06:58 Mucosa - Nose SARS-CoV-2, Influenza & RSV (PCR) - Final ABG Data ABG results: ABG 01/28/25 07:04 Specimen Type ART Sample Site R Radial pH 7.26 L Bicarbonate Actual 20.0 L Total CO2 21 Base Excess -7 L O2 Saturation 93 L O2 % 50.0 ABG pCO2 44.9 ABG pO2 78 Aftab Test Positive Respiration Rate 12 O2 Delivery Device BiPAP Vent Mode BiLevel Clinical Comments 18/10 Cardiology Labs/Tests 01/28/25 06:30: WBC 10.2, RBC 3.43 L, Hgb 9.6 L, Hct 31.2 L, MCV 91.0, MCH 28.0, MCHC 30.8 L, Plt Count 299, MPV 9.7, Immature Gran % (Auto) 1.000 H, Neut % (Auto) 71.3 H, Lymph % (Auto) 16.5 L, [place] % (Auto) 7.2, Eos % (Auto) 3.6, Baso % (Auto) 0.4, Absolute Neuts (auto) 7.3, Nucleated RBC % 0, Sodium 143, Potassium 4.5, Chloride 108, Carbon Dioxide 18.6 L, Anion Gap 16 H, BUN 26 H, Creatinine 1.63 H, Est GFR (MDRD) Non-Af 35 L, BUN/Creatinine Ratio 16.0, Glucose 131 H, Calcium 9.7, Magnesium 1.8 01/28/25 07:04: pH 7.26 L, Bicarbonate Actual 20.0 L, Base Excess -7 L, O2 Saturation 93 L, ABG pCO2 44.9, ABG pO2 78, Aftab Test Positive 01/28/25 07:40: Urine Color Yellow, Urine Clarity Cloudy, Urine pH 6.0, Ur Specific [place] 1.015, Urine Protein 100 H, Urine Glucose (UA) Normal, Urine Ketones Negative, Urine Occult Blood 250 H, Urine Nitrite Negative, Urine Bilirubin Negative, Urine Urobilinogen Normal, Ur Leukocyte Esterase 500 H, Urine RBC 10-25 SEEN, Urine WBC >100 SEEN 01/28/25 08:30: Sodium 141, Potassium 5.0, Chloride 108, Carbon Dioxide 18.4 L, Anion Gap 15, BUN 29 H, Creatinine 1.53 H, Est GFR (MDRD) Non-Af 37 L, BUN/Creatinine Ratio 19.1, Glucose 136 H, Calcium 9.6 01/28/25 10:45: Lactic Acid < 1.0 Rhythm: EKG: ECHO: Stress Test: Cardiac Cath: PCI: CT Surgery: Holter monitor: EPS: PPM: CXR: Chest CT Scan: Radiography Diagnostic Testing: Radiology Impression Chest X-Ray 01/28/25 07:00 IMPRESSION: Increased opacity throughout the lung with pulmonary venous congestion and alveolar edema likely reflective of congestive heart failure. Superimposed pneumonia can not be excluded. Reading Location: [facility] Risk Score for UA/STEMI Assesmment (YES = 1) Risk Stratification Applicable: No
[2025-01-29] VITALS (24 sets, daily range): BP systolic 101–165; BP diastolic 54–119; PULSE 75–97; RESP 14–31; TEMP 36.7–37.1; O2SAT 91–99; BMI 27.3
[2025-01-29 03:53] LABS: Hematocrit 26.6 % (37-47); Hemoglobin 8.7 g/dL (12.0-15.0); Immature Granulocytes Count 0.030 X10^3/uL (0.0-0.0); Mean Corp Hgb Conc 32.7 g/dL (32-36); Mean Corpuscular Volume 86.6 fL (81-99); Mean Platelet Vol. 9.3 fl (6.2-12.0); NRBC Flagged by Analyzer 0 % (0-5); Platelet Count 220 K/mm3 (150-450); RBC Distribution Width CV 15.7 % (11.6-14.6); RBC Distribution Width SD 49.8 fl (35.1-43.9); Red Blood Count 3.07 M/mm3 (4.2-5.4); White Blood Count 7.2 K/mm3 (4.4-11.0)
[2025-01-29 04:54] LABS: Anion Gap 14 (5-15); BUN 26 mg/dL (4-19); BUN/Creat Ratio 17.8 RATIO (10-20); Calcium,Total 9.4 mg/dL (7.6-11.0); Carbon Dioxide 23.7 mmol/L (21.0-32.0); Chloride 102 mmol/L (98-108); Estimated Creatinine Clearance 34.44 ml/min (50-250); Glucose 90 mg/dL (70-99); Potassium 4.0 mmol/L (3.3-5.1)
--- NOTE | 2025-01-29 07:18 | PCM.PN.INT ---
Assessment & Plan Assessment/Plan (1) Acute respiratory failure with hypoxia: PLAN: Plan RECOMMENDATIONS: 1. Continue to wean supplemental oxygen to maintain saturations at or above 90%. 2. Diuresis as tolerated. 3. Recommend PAP therapy with naps and nightly. 4. Tentative plans for coronary angiography today. 5. Continue appropriate DVT prophylaxis. 6. Encourage incentive spirometer use and mobilize patient as tolerated. IMPRESSIONS: 1. Acute hypoxemic respiratory failure Secondary to acute decompensated heart failure. The patient has improved symptomatically following diuresis and noninvasive positive pressure ventilatory support. She is stable from a respiratory perspective on 2 L/min. Recommend continuing diuresis as tolerated by hemodynamics and renal function. Cardiology is currently following. There are tentative plans to proceed with coronary angiography at some point today. I have no new additional recommendations from a pulmonary/critical care perspective. 2. History of chronic kidney disease/anemia/diabetes mellitus/peripheral vascular disease/hypertension Complicates care, management, recovery and prognosis. Continue home medications as indicated. Recommend continued use of PAP therapy with naps and nightly. This note was generated with [employer] dictation software. It may contain incorrect words, spelling, and punctuation that were not noted in checking the note before signing. Subjective Subjective The patient was seen and examined at the bedside this morning. Events from the last 24 hours have been reviewed. The patient is currently afebrile, hemodynamically stable and maintaining appropriate oxygen saturations on 2 L/min via nasal cannula. There are tentative plans to proceed with coronary angiography at some point today. The patient is documented to be overall net -3.3 L for the hospitalization. White blood cell count is normal. Hemoglobin and platelet count are stable. Creatinine is stable at 1.48. Objective Data Objective Data The patient's most recent lab work, culture data and imaging studies have all been personally reviewed. COVID, influenza and RSV PCR's were negative. Vital Signs: Vital Signs Temp Pulse Resp BP Pulse Ox O2 Del Method O2 Flow Rate 98.7 F 87 20 H 131/67 H 97 Nasal Cannula 2 01/29/25 04:00 01/29/25 06:00 01/29/25 06:00 01/29/25 06:00 01/29/25 06:00 01/29/25 06:00 01/29/25 06:00 FiO2 50 01/28/25 06:50 Oxygen Flow Rate (L/min) 2 Oxygen Delivery Method Nasal Cannula Weight: 149 lb 4.047 oz Body Mass Index (BMI) 27.3 Intake & Output: Intake and Output for Last 24 Hours 01/27/25 01/28/25 01/29/25 23:59 23:59 23:59 Intake Total 360 / 360 Output Total 2000 / 3000 1700 / 1700 Balance -1640 / -2640 -1700 / -1700 Lab / Micro Data Attestation: I reviewed the patient's lab results. 01/29/25 03:44 01/29/25 03:44 Labs: Laboratory Results - last 24 hr 01/28/25 06:30: Sodium 143, Potassium 4.5, Chloride 108, Carbon Dioxide 18.6 L, Anion Gap 16 H, BUN 26 H, Creatinine 1.63 H, Estim Creat Clear Calc 31.76 L, Est GFR (MDRD) Non-Af 35 L, BUN/Creatinine Ratio 16.0, Glucose 131 H, Calcium 9.7, Magnesium 1.8, Troponin T High Sens 30 H D, NT pro BNP II 3339 H 01/28/25 07:40: Urine Color Yellow, Urine Clarity Cloudy, Urine pH 6.0, Ur Specific [place] 1.015, Urine Protein 100 H, Urine Glucose (UA) Normal, Urine Ketones Negative, Urine Occult Blood 250 H, Urine Nitrite Negative, Urine Bilirubin Negative, Urine Urobilinogen Normal, Ur Leukocyte Esterase 500 H, Urine RBC 10-25 SEEN, Urine WBC >100 SEEN, Ur Squamous Epith Cells 0 SEEN, Urine Bacteria 0 SEEN, Urine Mucus 0 SEEN 01/28/25 08:30: Sodium 141, Potassium 5.0, Chloride 108, Carbon Dioxide 18.4 L, Anion Gap 15, BUN 29 H, Creatinine 1.53 H, Estim Creat Clear Calc 33.31 L, Est GFR (MDRD) Non-Af 37 L, BUN/Creatinine Ratio 19.1, Glucose 136 H, Calcium 9.6, Troponin T Hi Sens 2 Hr 34 H, b-Hydroxybutyric mmol/L 1.4 H, Procalcitonin 0.04 01/28/25 10:45: Lactic Acid < 1.0 01/28/25 11:12: POC Glucose 120 H 01/28/25 11:45: Troponin T Hi Sens 4Hr 70 H* 01/28/25 16:21: POC Glucose 124 H 01/28/25 21:05: POC Glucose 140 H 01/29/25 03:44: WBC 7.2, RBC 3.07 L, Hgb 8.7 L, Hct 26.6 L, MCV 86.6, MCH 28.3, MCHC 32.7 D, RDW Std Deviation 49.8 H, RDW Coeff of Nuno 15.7 H, Plt Count 220, MPV 9.3, Immature Gran % (Auto) 0.400, Neut % (Auto) 73.6 H, Lymph % (Auto) 13.7 L, [place] % (Auto) 9.6, Eos % (Auto) 2.4, Baso % (Auto) 0.3, Absolute Neuts (auto) 5.3, Absolute Lymphs (auto) 0.99, Nucleated RBC % 0, Sodium 139, Potassium 4.0, Chloride 102, Carbon Dioxide 23.7, Anion Gap 14, BUN 26 H, Creatinine 1.48 H, Estim Creat Clear Calc 34.44 L, Est GFR (MDRD) Non-Af 39 L, BUN/Creatinine Ratio 17.8, Glucose 90, Calcium 9.4 01/29/25 06:46: POC Glucose 90 Micro: Microbiology 01/28/25 10:32 Mucosa - Nasopharyngeal Respiratory Panel (PCR) - Final 01/28/25 06:58 Mucosa - Nose SARS-CoV-2, Influenza & RSV (PCR) - Final Radiography Diagnostic Testing: Radiology Impression Chest X-Ray 01/28/25 07:00 IMPRESSION: Increased opacity throughout the lung with pulmonary venous congestion and alveolar edema likely reflective of congestive heart failure. Superimposed pneumonia can not be excluded. Reading Location: [facility] Physical Exam Const alert, oriented x3 and no apparent distress General Appearance: cooperative HEENT normocephalic and head/scalp atraumatic Eyes PERRL, EOMs intact bilaterally and conjunctivae normal Neck supple General: trachea midline Chest inspection of chest normal Resp normal respiratory effort and no use of accessory muscles Effort and Inspection: able to speak in complete sentences Auscultation: rales; Negative for rhonchi or wheezes Cardio regular rate and regular rhythm GI soft to palpation and non-tender Extremity no clubbing, cyanosis or edema Skin no rashes or lesions noted Neuro CN's II-XII intact bilaterally, moves all extremities and no focal motor deficits Psych cooperative and affect normal Charges/Coding Visit Charges Inpatient E&M: 43590 Subs Hosp L2
--- NOTE | 2025-01-29 09:59 | PN_ITS ---
Subjective Subjective Patient seen and examined. She has no active complaints today. She is down to 2 L of oxygen. She had an uneventful night. Cardiology is on board and she is due for cardiac cath today. Objective Data Objective Data Vital Signs: Vital Signs Temp Pulse Resp BP Pulse Ox O2 Del Method O2 Flow Rate 98.0 F 89 20 H 138/60 H 98 Room Air 2 01/29/25 08:00 01/29/25 08:00 01/29/25 08:00 01/29/25 08:00 01/29/25 08:00 01/29/25 08:00 01/29/25 08:00 FiO2 50 01/28/25 06:50 Oxygen Flow Rate (L/min) 2 Oxygen Delivery Method Room Air Weight: 149 lb 4.047 oz Body Mass Index (BMI) 27.3 Intake & Output: Intake and Output for Last 24 Hours 01/27/25 01/28/25 01/29/25 23:59 23:59 23:59 Intake Total 360 / 360 Output Total 2000 / 3000 1700 / 1700 Balance -1640 / -2640 -1700 / -1700 Lab / Micro Data 01/29/25 03:44 01/29/25 03:44 Labs: Laboratory Results - last 24 hr 01/28/25 08:30: Sodium 141, Potassium 5.0, Chloride 108, Carbon Dioxide 18.4 L, Anion Gap 15, BUN 29 H, Creatinine 1.53 H, Estim Creat Clear Calc 33.31 L, Est GFR (MDRD) Non-Af 37 L, BUN/Creatinine Ratio 19.1, Glucose 136 H, Calcium 9.6, b -Hydroxybutyric mmol/L 1.4 H, Procalcitonin 0.04 01/28/25 10:45: Lactic Acid < 1.0 01/28/25 11:12: POC Glucose 120 H 01/28/25 11:45: Troponin T Hi Sens 4Hr 70 H* 01/28/25 16:21: POC Glucose 124 H 01/28/25 21:05: POC Glucose 140 H 01/29/25 03:44: WBC 7.2, RBC 3.07 L, Hgb 8.7 L, Hct 26.6 L, MCV 86.6, MCH 28.3, MCHC 32.7 D, RDW Std Deviation 49.8 H, RDW Coeff of Nuno 15.7 H, Plt Count 220, MPV 9.3, Immature Gran % (Auto) 0.400, Neut % (Auto) 73.6 H, Lymph % (Auto) 13.7 L, [place] % (Auto) 9.6, Eos % (Auto) 2.4, Baso % (Auto) 0.3, Absolute Neuts (auto) 5.3, Absolute Lymphs (auto) 0.99, Nucleated RBC % 0, Sodium 139, Potassium 4.0, Chloride 102, Carbon Dioxide 23.7, Anion Gap 14, BUN 26 H, Creatinine 1.48 H, E stim Creat Clear Calc 34.44 L, Est GFR (MDRD) Non-Af 39 L, BUN/Creatinine Ratio 17.8, Glucose 90, Calcium 9.4 01/29/25 06:46: POC Glucose 90 Micro: Microbiology 01/28/25 10:32 Mucosa - Nasopharyngeal Respiratory Panel (PCR) - Final 01/28/25 06:58 Mucosa - Nose SARS-CoV-2, Influenza & RSV (PCR) - Final Physical Exam Const alert, oriented x3 and no apparent distress General Appearance: cooperative HEENT normocephalic, head/scalp atraumatic and hearing grossly normal bilaterally Eyes EOMs intact bilaterally and conjunctivae normal Neck supple Resp Resp Narrative: Now off BiPAP and on 2 L of oxygen. Mildly diminished breath sounds bibasilarly. No wheezes or crackles. Cardio regular rate, regular rhythm, S1 normal heart sound, S2 normal heart sound and no murmurs GI normal to inspection, nondistended, normoactive bowel sounds, soft to palpation and non-tender Extremity normal to inspection, full ROM and no clubbing, cyanosis or edema General Extremity: no tenderness to palpation of joints or extremities Skin General Skin Exam: no breakdown Neuro oriented x3, moves all extremities and no focal motor deficits Sensorium / Orientation: awake and alert Motor Exam: general weakness Psych thought process normal and cooperative Appearance: appropriate Assessment & Plan Assessment/Plan (1) Acute respiratory failure with hypoxia: (2) CHF exacerbation: PLAN: Plan #Acute hypoxic respiratory failure due ot acute exacerbation of heart failure with reduced EF * Now off BiPAP. On 2 L of oxygen by nasal cannula. * Chest x-ray showed evidence of fluid overload. EKG showed no acute ST changes. * Titrate oxygen to maintain saturation above 90%. Cardiology and critical care consulted. * Had 2D echo recently which showed EF of 45% and an area of anterior and apical hypokinesis to akinesis. She had a Lexiscan prior to her discharge recently which showed an anterior apical infarct with no significant reversible ischemia. * She is for cardiac cath today per cardiology. * #CAD: * 2D echo as above for recent admission. * Was told that she would need cardiac cath on outpatient basis. * Cardiology on board. For cardiac cath today. * On aspirin and high intensity statin * #Hypertension: On amlodipine and carvedilol as well as lisinopril #Hyperlipidemia: On ezetimibe #Type 2 diabetes mellitus: * On pioglitazone and metformin as well as Jardiance. * Per daughter she has not been taking the Jardiance due to the prohibitive cost. * Insulin sliding scale. * Accu-Cheks ACHS. #CKD: Recently had a kidney biopsy but results of which are pending. Creatinine is slightly down to 1.48 today. Baseline creatinine is around 1. Results of kidney biopsy from 01/09/2025 still pending. DVT prophylaxis: lovenox CODE STATUS: Full code Disposition: Transfer out of ICU she remained stable after cardiac cath. * Charges/Coding Visit Charges Inpatient E&M: 20065 Subs Hosp L2
--- NOTE | 2025-01-29 10:56 | CASEMGMT ---
JOSSELYN STROUD Assessment Face to Face with patient for initial?transition planning/care coordination assessment. JOSSELYN STROUD introduced self and role at [facility], pt voices understanding. Pt is A&Ox4 and is resting comfortably in bed and is calm. Pt's daughter, Rosetta, at the bedside. Care providers, pharmacy, and demographics verified. Admitting dx: Acute Hypoxic RF LACE Strata: 3 PCP: Christiano Ramirez Specialists: Brendan (Podiatry), Eye doctor out of [place] (Unable to recall name), ADEBAYOG, Nephrology (Pt and daughter unsure of name). Preferred Pharmacy: [facility] Insurance: [facility] Prescription Benefit: Yes LNOK: Rosetta (Daughter) Living Arrangements: Pt lives with her daughter and 4 grandchildren (Ages 17, 15, 13, and 12) in a 2 story home with 1 step to enter and also a ramp as an option ADLs/IADLs: Pt states that her family helps care for her at home Transportation: Pt does not drive. Pt's daughter drives and other family members DME: CPAP @ [facility] with no additional oxygen. Pt states that she lost her PAP machine. Pt states that she has sleep apnea. Educated the pt that her PCP can order a sleep study and that the pt can get this done as an OP and can get a CPAP with specific settings that way. Pt is currently requiring additional oxygen and may qualify for home oxygen use. A verbal list of local in-network DME companies were provided to the pt at this time. Pt prefers [employer]Pt states that she has a BGM with sufficient testing supplies including lancets, test strips, and EtOH swabs. Pt also has a Pulse ox, walk-in shower with shower chair and grab bars, x2 WC, FWW, Knee brace, and Cane. Pt has a hx of amputation of her rt toes and that they have dressing supplies for that. Pt states that she is able to change the dressings herself, as well as the daughter. Pt states that she sees Dr Cardona for this as well. HHC/SNF: Recent hx with [facility]. However, pt ands pt's daughter state that they were not happy with the HHC because, They were coming out to the house too much, almost every other day. Pt states that she could not get rest due to the HH coming out so often. Pt now denies HHC needs. History at [facility]. Pt?s goal: Home with OP Tx Plan: Anticipate home with OP Tx. Follow for new oxygen needs. Current 6-Click score is 14. PT is pending. Per ICU rounds, pt to get a heart cath today. Pt adamantly denies SNF and HHC needs. Pt states that she wants to go home with her family at the time of DC. Pt states that she would be interested in attending OP Tx. Pt daughter agrees. Pt states that she prefers [facility] for OP Tx and would like this RN CM to set up an appt for morning time. CM to follow up with the hospitalist for Rx signing and schedule the pt with an appt once appropriate. Pt and pt's daughter decline further questions or concerns at this time. Peter Joyner RN, CM
[2025-01-29] MEDS: 0.9% Normal Saline (1000mL) 1,000 ML 15 ML IV (11:22)
--- NOTE | 2025-01-29 11:35 | NURSING ---
This RN called and gave report to JOSSELYN Jonas in ICU.
--- NOTE | 2025-01-29 12:26 | NURSING ---
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
--- NOTE | 2025-01-29 14:22 | WOUNDNOTE ---
wound photo: right foot
--- NOTE | 2025-01-29 14:23 | WOUNDNOTE ---
wound photo: right posterior lower leg/Achilles area
--- NOTE | 2025-01-29 14:26 | CL.D_ITS ---
Patient Name: ROSALINO ELVY Study Date: 01/29/2025 Performing: Gerald Diggs MD Ht: 62 inches 157.48 cm : 1960 Wt: 149.4 lbs 67.7 kg Age: 64 Gender: female BSA: 1.69 PROCEDURE(S) PERFORMED [id number] CLINICAL PROFILE AND INDICATIONS Indications: ACS <= 24 hrs, NSTEMI, CHF, LV dysfunction Heart Failure: None CONCLUSIONS CAD as described RECOMMENDATIONS CT surgery consult to discuss CABG vs high risk PCI DESCRIPTION OF PROCEDURE The patient arrived to the procedure lab. The risks and benefits of the procedure as well as a full description of our services here and current unavailability of surgical backup were fully explained to the patient and/or their significant other prior to the catheterization. The Timeout was completed, verifying the correct patient and procedure. The patient's procedural site was prepped and draped in the usual fashion. Local anesthetic was given subcutaneously to right radial region with Lidocaine 2%. Using a modified Seldinger technique, arterial access was obtained via the right radial artery, a 6Fr sheath was inserted. Left Coronary Artery selective angiography was performed in multiple views using a 5 Fr. JL3.5 catheter. Right Coronary Artery selective angiography was then performed in multiple views using a 5 Fr. JR 4 catheter.The arterial sheath was pulled and a TR Band was applied for hemostasis. 10cc of air CORONARY ANGIOGRAPHY DOMINANCE: Right Dominant LEFT MAIN: Mild luminal irregularities LEFT ANTERIOR DESCENDING ARTERY: MID LAD: 90 % Stenosis, moderate calcification. There is a large septal prosthetic assistant that arises at this location which has 80% ostial stenosis. There is also a very small diagonal at this location that has 90% ostial stenosis. CIRCUMFLEX ARTERY: PROX CIRC: 80 % Stenosis RIGHT CORONARY ARTERY: Mild luminal irregularities COMPLICATIONS No Complications PROCEDURE MEDICATIONS Fentanyl 25 mcg IV Versed 0.5 mg IV Oxygen: 2 L/min via nasal cannula Heparin given IA 01/29/2025 12:25:31 Verapamil 2.5mg, Ntg 100mcgs, 3000 units of Heparin given IA 01/29/2025 12:25:31 SUMMARY OF HEMODYNAMIC DATA Time AIR REST ECG 12:03:01 AO 106/57 (74) SA 12:27:16 Signed By Gerald Diggs MD On 01/29/2025 14:25:52 Gerald Diggs MD
--- NOTE | 2025-01-29 15:26 | CASEMGMT ---
Tertiary Insurance review for hospitals In-network with?[employer] MCR? insurance if transfer is recommended is as follows: [facility], [facility], [place], [facility], [facility], [facility], , [place], and [place]. Sarai Cazares, Discharge Planning Asst
[2025-01-29] MEDS: Fluticasone 0.05% 1 SPRAY NASAL.SRY NASAL (17:10)
[2025-01-29] MEDS: Azelastine HCl NASAL.SRY 1 SPRAY NASAL (17:11)
--- NOTE | 2025-01-29 20:28 | NURSING ---
transfer center called for update on patient condition. Stated a bed was available but the room may change, therefore, the [facility] will call back with more information once transportation is finalized on their end.
--- NOTE | 2025-01-29 21:07 | NURSING ---
2100 [facility] called and gave a bed assignment. The patient is accepted to the [facility]. They [facility] with [facility] will arrive at 2330 to transport patient.
== END 2025-01-30 00:13 | disposition short-term general hospital (02) | DRG 286 ==
LOC: ED 07:38 → ICU 09:07
PROVIDERS: Internal Medicine Critical Care Medicine; Admitting Provider Student in an Organized Health Care Education/Training Program; Emergency Provider Emergency Medicine; PCP Internal Medicine; Visit Provider Student in an Organized Health Care Education/Training Program
DX: I13.0 Hypertensive heart and chronic kidney disease with heart failure and stage 1 through stage 4 chronic kidney disease, or unspecified chronic kidney disease (principal); J96.01 Acute respiratory failure with hypoxia; I50.23 Acute on chronic systolic (congestive) heart failure; E11.51 Type 2 diabetes mellitus with diabetic peripheral angiopathy without gangrene; D64.9 Anemia, unspecified; E66.9 Obesity, unspecified; E11.22 Type 2 diabetes mellitus with diabetic chronic kidney disease; F32.A Depression, unspecified; N18.9 Chronic kidney disease, unspecified; I25.5 Ischemic cardiomyopathy; E78.5 Hyperlipidemia, unspecified; F17.210 Nicotine dependence, cigarettes, uncomplicated; I25.2 Old myocardial infarction; I25.10 Atherosclerotic heart disease of native coronary artery without angina pectoris; Z68.29 Body mass index [BMI] 29.0-29.9, adult; Z86.73 Personal history of transient ischemic attack (TIA), and cerebral infarction without residual deficits; Z79.82 Long term (current) use of aspirin; Z79.84 Long term (current) use of oral hypoglycemic drugs; Z79.02 Long term (current) use of antithrombotics/antiplatelets; Z79.899 Other long term (current) drug therapy
CPT/HCPCS: 36600; 71045; 80048; 81001; 82010; 82803; 82962; 83605; 83735; 83880; 84145; 84484; 85025; 87631; 87633; 93005; 93454; 94002; 94762; 99152; 99153; 99285; 99406; C1894; Q9967; A4216; C1769; J1938

== ENCOUNTER 2025-02-18 12:57 | Inpatient (IN) | payer MEDICARE, SELFPAY ==
[2025-02-18] VITALS (18 sets, daily range): BP systolic 79–99; BP diastolic 28–73; PULSE 52–72; RESP 12–21; TEMP 33.3–36.8; O2SAT 97–100; BMI 26.6; BMI 28.0
--- NOTE | 2025-02-18 13:03 | EX.ED.DYSGE1 ---
HPI History of Present Illness Chief Complaint: Hypoglycemia Detail of Chief Complaint: Mental status change concern for hypoglycemia Informant: family Narrative Narrative: Patient brought to the emergency department via private vehicle from home by her daughters with complaint of mental status change and concern for hypoglycemia. Patient blood sugar this morning was in the 40s and she did not eat very much. Patient's daughter had to go get some dental work and came back and found patient mostly unresponsive. Patient had an MA and cardiac stent placed at [facility] last week. Initially patient could not give any history PFSH [facility] Medical History Hypertension NSTEMI (non-ST elevated myocardial infarction) Heart failure with reduced left ventricular function Respiratory failure Septic shock Hyperlipidemia DM type 2 (diabetes mellitus, type 2) Anemia Wears glasses Post-menopausal Alcohol use Depression History of steroid therapy Arthritis Uses wheelchair Bladder disease Low iron Stroke/cerebrovascular accident Dietary restriction History of renal disease Chronic cough Smoker Shortness of breath on exertion History of pain when walking DM type 2 (diabetes mellitus, type 2) Amputation of one or more toes Peripheral arterial disease Gas gangrene Osteomyelitis Hyperlipidemia Home Medications ?Medication ?Instructions ?Recorded ?Last Taken ?Type aspirin 81 mg chewable tablet 81 mg PO DAILY@0800 Blood thinner 12/27/15 02/18/25 History ferrous sulfate 325 mg (65 mg 325 mg PO DAILY SUPPLEMENT 01/01/22 02/18/25 History iron) tablet bupropion HCl 150 mg 24 hr tablet, 150 mg PO DAILY pain 12/03/24 02/18/25 History extended release ezetimibe 10 mg tablet 10 mg PO DAILY cholesterol 12/03/24 02/18/25 History glipizide 2.5 mg tablet, extended 2.5 mg PO DAILY diabetes 12/03/24 02/18/25 History release 24 hr metformin 1,000 mg tablet 1,000 mg PO BID diabetes 12/03/24 02/18/25 History pioglitazone 30 mg tablet 30 mg PO DAILY diabetes 12/03/24 02/18/25 History amlodipine 10 mg tablet 10 mg PO DAILY htn #30 tabs 12/11/24 02/18/25 Rx carvedilol 3.125 mg tablet 3.125 mg PO BIDCM HTN #60 tabs 12/11/24 02/18/25 Rx sodium chloride 0.65 % nasal spray 1 spray intranasal BID PRN nasal 01/29/25 Unknown History aerosol (Saline Nasal) congestion atorvastatin 80 mg tablet 80 mg PO DAILY 02/18/25 02/17/25 History sacubitril 24 mg-valsartan 26 mg 1 tab PO BID 02/18/25 02/18/25 History tablet (Entresto) ticagrelor 90 mg tablet (Brilinta) 90 mg PO BID 02/18/25 02/18/25 History Allergy/AdvReac Type Severity Reaction Status Date / Time latex Allergy Rash Verified 02/18/25 13:08 Surgical History H/O biopsy of kidney Hx of eye surgery Hx of left cataract extraction Social History household members: none Smoking Status: Current every day smoker tobacco type: cigarettes substance use type: does not use ROS ROS ED Review of Systems ROS Unobtainable: other Constitutional Constitutional ED: Reports lethargy; Denies chills, fever(s), sweats or weight loss Eyes Eyes: Denies blurry vision, change in vision or diplopia ENT ENT ED: Denies rhinorrhea or sore throat Cardiovascular Cardiovascular: Denies chest pain, orthopnea or racing heartbeat Respiratory/Chest Respiratory/Chest: Denies cough, dyspnea, dyspnea on exertion, orthopnea or sputum Gastrointestinal Gastrointestinal: Denies abdominal pain, diarrhea, nausea or vomiting Genitourinary Genitourinary ED: Denies dysuria, hematuria or urinary frequency Musculoskeletal Musculoskeletal: Denies arthralgias, back pain, myalgias or neck pain Integumentary Denies abscess, Abrasions or rash Neurologic Neurologic: Reports other Details: Mental status change ; Denies headache(s) or weakness Psychiatric Psychiatric: Denies anxiety, depression or suicidal thoughts Endocrine Endocrinology: Denies polydipsia, polyphagia or polyuria Hematologic/Lymphatic Hematologic/Lymphatic: Denies easy bleeding, easy bruising or lymphadenopathy Allergic/Immunologic Allergic/Immunologic ED: Denies mouth swelling, tongue swelling or urticaria EXAM Physical Exam Narrative Exam Narrative: Patient unresponsive on arrival. Const Vital Signs: 02/18/25 13:00 02/18/25 13:05 02/18/25 13:32 Temperature 97.8 F Temperature Source Oral Pulse Rate 52 L 52 L 53 L Respiratory Rate 18 20 H Respiratory Pattern Blood Pressure 86/28 L 99/40 L Blood Pressure Mean 47 59 Pulse Ox 100 100 Oxygen Delivery Method Room Air 02/18/25 14:00 02/18/25 14:30 02/18/25 14:33 Temperature Temperature Source Pulse Rate 56 L 54 L 56 L Respiratory Rate 21 H 16 Respiratory Pattern Normal Blood Pressure 89/39 L 79/47 L Blood Pressure Mean 55 57 Pulse Ox 100 Oxygen Delivery Method Room Air 02/18/25 15:00 Temperature Temperature Source Pulse Rate 61 Respiratory Rate Respiratory Pattern Blood Pressure 79/31 L Blood Pressure Mean 47 Pulse Ox Oxygen Delivery Method Positive well nourished and well developed General Appearance ED: well developed and NAD HEENT Reports TM's clear and moist mucous membranes normocephalic and atraumatic; Negative for trauma or tenderness Tympanic Membrane ED: Yes TM's clear Eyes PERRL and EOMs intact bilaterally General Eye ED: Negative for pale conjunctiva or scleral icterus Neck no lymphadenopathy, supple and no JVD General: Negative for tenderness Chest Wall inspection of chest normal and palpation of chest normal Chest: Negative for tenderness Resp normal respiratory effort and clear to auscultation bilaterally Effort and Inspection: Negative for respiratory distress or pain with movement Auscultation: Negative for rhonchi, wheezes or diminished lung sounds Cardio regular rate, regular rhythm, S1 normal heart sound, S2 normal heart sound and no murmurs Peripheral Pulses: pulses 2+ throughout GI normal to inspection, nondistended, normoactive bowel sounds, soft to palpation, non-tender, non-distended and no masses Back/Spine no CVA tenderness and no thoracic nor lumbar tenderness Extremity normal to inspection General Extremety ED: Negative for edema General Extremity: Negative for edema Neuro oriented x3, CN's II-XII intact bilaterally, no sensory deficits noted and gait normal Sensorium / Orientation: awake, alert, oriented to person, oriented to place and oriented to time Motor Exam: strength 5/5 throughout and strength abnormal Psych mental status grossly normal Skin no rashes or lesions noted and no wounds MDM MDM MDM Narrative Medical decision making narrative: Patient presents to the emergency department unresponsive with low blood sugar reading this morning. IV line was established. Blood sugar reading here was just read low. She was given an amp of D50. Will start hypoglycemia protocol. Patient's mentation did improve with that. She has not been eating well. She currently takes metformin which she did take this morning. She does not take insulin. She has not been ill recently. She does have history of kidney cancer with metastasis to the lymph nodes. EKG obtained arrival shows sinus rhythm with ventricular rate of 53 bpm with first-degree AV block. CBC with differential shows a white count 11 with hemoglobin of 9.8 with hematocrit of 32 and platelet count of 276. Chemistry shows sodium 140 with potassium 7.5 and chloride 99. BUN was 69 and creatinine 6.94. Troponin elevated at 69. Patient was given hyperkalemic treatment. Calcium gluconate as well as breathing treatment. Will give IV fluids. Discussed with hospitalist will evaluate patient for admission for hypoglycemia, acute renal failure, hyperkalemia. Will place a Robles catheter. Lab Data Attestation: I reviewed the patient's lab results. Labs: Laboratory Results - last 24 hr 02/18/25 02/18/25 02/18/25 13:02 13:24 14:12 WBC 11.0 RBC 3.37 L Hgb 9.8 L Hct 31.9 L MCV 94.7 MCH 29.1 MCHC 30.7 L RDW Std Deviation 54.7 H RDW Coeff of Nuno 15.7 H Plt Count 276 MPV 10.2 Immature Gran % (Auto) 0.500 Neut % (Auto) 89.7 H Lymph % (Auto) 5.5 L [place] % (Auto) 3.7 Eos % (Auto) 0.1 Baso % (Auto) 0.5 Absolute Neuts (auto) 9.9 H Absolute Lymphs (auto) 0.60 L Nucleated RBC % 0 Sodium 140 Potassium 7.5 H* Chloride 99 Carbon Dioxide 11.1 L Anion Gap 30 H BUN 69 H Creatinine 6.94 H Estim Creat Clear Calc 7.11 L* Est GFR (MDRD) Non-Af 6 L BUN/Creatinine Ratio 9.9 L Glucose 15 L* Calcium 10.5 Troponin T High Sens 69 H* D POC Glucose 139 H 119 H Critical Care Time Critical care time (excluding procedures): 30-74 minutes, Including time spent:, Discussing w/Patient &/or Family/Aeronautical Test Engineer, Discussing w/Consultants, Arranging Admission or Transfer, Performing Direct Patient Care at Bedside and - (30 minutes) Discharge Plan Dx/Rx/DC Orders Clinical Impression: Hyperkalemia, Acute renal failure, Hypoglycemia, Dehydration Disposition Disposition: Acute Care Hospital [facility] [place]
[2025-02-18] MEDS: 0.9% Normal Saline (1000mL) 1,000 ML 999 ML IV ×2 (13:11→14:03)
--- NOTE | 2025-02-18 13:13 | ED.RN ---
25g/50mL dextrose 50% give at 1301
--- NOTE | 2025-02-18 13:15 | EKG12_ITS ---
Test Reason : Blood Pressure : */* mmHG Vent. Rate : 53 BPM Atrial Rate : 53 BPM P-R Int : 258 ms QRS Dur : 136 ms QT Int : 510 ms P-R-T Axes : 3 -47 95 degrees QTcB Int : 478 ms Sinus bradycardia with 1st degree A-V block Left axis deviation Non-specific intra-ventricular conduction block Minimal voltage criteria for LVH, may be normal variant ( Neville product ) Cannot rule out Septal infarct , age undetermined Abnormal ECG Confirmed by KEVIN LUX, CONSUELO ([id number]), primer expeditor and drier HERMINIA SIMON ([id number]) on 02/19/2025 1:24:00 PM Referred By: CLAUDETTE Confirmed By: CONSUELO BROWN MD
[2025-02-18 13:19] LABS: Hematocrit 31.9 % (37-47); Hemoglobin 9.8 g/dL (12.0-15.0); Immature Granulocytes Count 0.050 X10^3/uL (0.0-0.0); Mean Corp Hgb Conc 30.7 g/dL (32-36); Mean Corpuscular Volume 94.7 fL (81-99); Mean Platelet Vol. 10.2 fl (6.2-12.0); NRBC Flagged by Analyzer 0 % (0-5); POSITIVE DIFFERENTIAL YES; Platelet Count 276 K/mm3 (150-450); RBC Distribution Width CV 15.7 % (11.6-14.6); RBC Distribution Width SD 54.7 fl (35.1-43.9); Red Blood Count 3.37 M/mm3 (4.2-5.4); White Blood Count 11.0 K/mm3 (4.4-11.0)
[2025-02-18 14:16] LABS: Anion Gap 30 (5-15); BUN 69 mg/dL (4-19); BUN/Creat Ratio 9.9 RATIO (10-20); Calcium,Total 10.5 mg/dL (7.6-11.0); Carbon Dioxide 11.1 mmol/L (21.0-32.0); Chloride 99 mmol/L (98-108); Estimated Creatinine Clearance 7.11 ml/min (50-250)
[2025-02-18 14:24] LABS: Glucose 15 mg/dL (70-99); Potassium 7.5 mmol/L (3.3-5.1); Troponin T High Sensitivity 69 ng/L (<=14)
[2025-02-18] MEDS: Albuterol *CONC* 2.5mg/0.5mL VIAL.NEB. 10 MG INHALATION (14:31)
--- NOTE | 2025-02-18 14:33 | ED.RN ---
dr núñez aware no urine output with catheter placement
--- NOTE | 2025-02-18 14:50 | ED.RN ---
1415 dr núñez notified of glucose of 15 (prior to hypoglycemia treatment), K 7.5 and trop of 69. Dr. Núñez gave verbal order for urinary catheter
[2025-02-18] MEDS: Calcium Gluconate IV 3 GM in Syringe 1 EACH IV (15:00)
--- NOTE | 2025-02-18 15:06 | CT_ITS ---
PROCEDURE: ABDOMEN/PELVIS WITHOUT CONT 02/18/2025 REASON FOR EXAM: RENAL FAILURE TECHNIQUE: Procedure Code: CTABDPEL Modality: CT Procedure: ABDOMEN/PELVIS WITHOUT CONT Noncontrast technique limits evaluation of the abdominal and pelvic viscera. Coronal and Sagittal reconstruction series were generated. One or more dose reduction techniques were used (e.g., Automated exposure control, adjustment of the mA and/or kV according to patient size, use of iterative reconstruction technique). RADIATION DOSE SUMMARY: CTDlvol: 7.97 mGy DLP: 423.95 mGycm COMPARISON: 12/21/2024 FINDINGS: Note that evaluation of the abdominopelvic viscera is limited in the absence of IV contrast. Motion limitation through the lung bases and upper abdomen. Lung bases: Advanced multivessel coronary atherosclerosis and/or stents. Trace to mild aortic annular calcification. Liver: Granuloma. Spleen: Granuloma. Gallbladder: Distended without calcified stones, convincing inflammation, or biliary dilatation. Pancreas: Unremarkable. Adrenals: Unremarkable Kidneys: No hydronephrosis. punctate 1-2 mm nonobstructing intrarenal calculus on the LEFT. Abnormal appearance of the RIGHT upper pole with vaguely masslike appearance very poorly delineated in the absence of IV contrast. Slightly asymmetric nonspecific LEFT perinephric stranding. Bowel: Unremarkable. Appendix not identified. Lymph nodes: Similar LEFT periaortic lymphadenopathy, nodes up to 17 mm short axis. Vasculature: Atherosclerosis. Peritoneum: Unremarkable. Bladder: Decompressed by Robles catheter and suboptimally evaluated. Intraluminal gas presumably related to catheter. Bladder wall thickening appears disc slightly disproportionate to the degree of underdistention. Reproductive Organs: Suboptimally delineated; grossly unremarkable. Body Wall: Unremarkable. Bones: Similar T12 compression fracture. Demineralization. Degenerative findings. CT/Abdomen/Pelvis without Cont IMPRESSION: 1. No hydronephrosis. 2. Possible cystitis. Additional nonspecific LEFT perinephric stranding could be reactive to the below or reflect pyelonephritis, unable to further evaluate in the absence of IV contrast. Syd elate with urinalysis. 3. Abnormal appearance of the LEFT kidney very poorly delineated in the absence of IV contrast but with vaguely masslike appearance suspicious for neoplasm. Recommend clinical follow-up including cor relation with recent tissue sampling. 4. 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 Re commend clinical/oncologic follow-up. 5. Additional description as above. Incidental Finding Alert: As above. Management of this incidental finding don rosie follow the [employer] (ACR) Incidental Findings Committee recommendations. Reading Location: [id number]
--- NOTE | 2025-02-18 15:19 | PCM.HP.STD ---
HPI - General General Date of Admission: 02/18/25 Date of Service: 02/18/25 Chief Complaint: Altered mental status HPI Narrative ROSALINO LEVY, is a 64 F who presented to [facility] ED on 02/18/2025 with altered mental status. Medical history significant for HFrEF, type 2 diabetes mellitus, hypertension, hyperlipidemia, and CKD stage IIIb. Patient was hospitalized here in early December for acute UTI with suspected pyelonephritis. During that hospitalization she was found to have a left renal mass concerning for malignancy. 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 In addition to this, patient was hospitalized here in late January for chest pain and was found on left heart cath to have multivessel disease. She was transferred to [facility] for further evaluation and per family she had 1 stent placed in the LAD there. She was discharged home from there last . Family noted that patient was doing well for the first few days but then this weekend she was not eating as much and seemed more lethargic. This morning she became even more altered and family noted that her blood sugar was in the 40s, so they called EMS to bring her in. In the ED she was found to have a blood sugar of 15 and she was treated with an amp of D50 with improvement. She was hypotensive to the 80s over 40s and in sinus bradycardia to the 50s, was otherwise afebrile and stable on room air at rest. Labs notable for potassium 7.1, bicarb 7, creatinine 6.49, BUN 66. Robles catheter was placed in the ED with minimal urine output. CT abdomen pelvis without contrast showed known left kidney findings consistent with malignancy as well as left retroperitoneal adenopathy consistent with known metastases; also showed possible cystitis with possible left nonspecific perinephric stranding concerning for pyelonephritis. Case was discussed with Dr. Boyd with nephrology; high suspicion is for prerenal ANTONIO and metabolic acidosis due to renal failure. Patient was started on a bicarbonate drip and hyperkalemia was treated medically, and hospitalist was contacted for admission. I saw the patient at bedside in the ED, several family numbers were present. Patient was sitting back in bed and in no acute distress. She was making appropriate eye contact but otherwise had difficulty answering questions appropriately for me due to altered mentation. No other acute concerns currently. Will be admitted for further management. [facility] Medical History Hypertension NSTEMI (non-ST elevated myocardial infarction) Heart failure with reduced left ventricular function Respiratory failure Septic shock Hyperlipidemia DM type 2 (diabetes mellitus, type 2) Anemia Wears glasses Post-menopausal Alcohol use Depression History of steroid therapy Arthritis Uses wheelchair Bladder disease Low iron Stroke/cerebrovascular accident Dietary restriction History of renal disease Chronic cough Smoker Shortness of breath on exertion History of pain when walking DM type 2 (diabetes mellitus, type 2) Amputation of one or more toes Peripheral arterial disease Gas gangrene Osteomyelitis Hyperlipidemia Home Medications ?Medication ?Instructions ?Recorded ?Last Taken ?Type aspirin 81 mg chewable tablet 81 mg PO DAILY@0800 Blood thinner 12/27/15 02/18/25 History ferrous sulfate 325 mg (65 mg 325 mg PO DAILY SUPPLEMENT 01/01/22 02/18/25 History iron) tablet bupropion HCl 150 mg 24 hr tablet, 150 mg PO DAILY pain 12/03/24 02/18/25 History extended release ezetimibe 10 mg tablet 10 mg PO DAILY cholesterol 12/03/24 02/18/25 History glipizide 2.5 mg tablet, extended 2.5 mg PO DAILY diabetes 12/03/24 02/18/25 History release 24 hr metformin 1,000 mg tablet 1,000 mg PO BID diabetes 12/03/24 02/18/25 History pioglitazone 30 mg tablet 30 mg PO DAILY diabetes 12/03/24 02/18/25 History amlodipine 10 mg tablet 10 mg PO DAILY htn #30 tabs 12/11/24 02/18/25 Rx carvedilol 3.125 mg tablet 3.125 mg PO BIDCM HTN #60 tabs 12/11/24 02/18/25 Rx sodium chloride 0.65 % nasal spray 1 spray intranasal BID PRN nasal 01/29/25 Unknown History aerosol (Saline Nasal) congestion atorvastatin 80 mg tablet 80 mg PO DAILY 02/18/25 02/17/25 History sacubitril 24 mg-valsartan 26 mg 1 tab PO BID 02/18/25 02/18/25 History tablet (Entresto) ticagrelor 90 mg tablet (Brilinta) 90 mg PO BID 02/18/25 02/18/25 History Allergy/AdvReac Type Severity Reaction Status Date / Time latex Allergy Rash Verified 02/18/25 13:08 Surgical History H/O biopsy of kidney Hx of eye surgery Hx of left cataract extraction Social History household members: none Smoking Status: Current every day smoker tobacco type: cigarettes substance use type: does not use ROS Review of Systems ROS Unobtainable: due to mental status Vital Signs Vital Signs Vital Signs: 02/18/25 13:00 02/18/25 13:05 02/18/25 13:32 Temperature 97.8 F Temperature Source Oral Pulse Rate 52 L 52 L 53 L Respiratory Rate 18 20 H Respiratory Pattern Blood Pressure 86/28 L 99/40 L Blood Pressure Mean 47 59 Pulse Ox 100 100 Oxygen Delivery Method Room Air 02/18/25 14:00 02/18/25 14:30 02/18/25 14:33 Temperature Temperature Source Pulse Rate 56 L 54 L 56 L Respiratory Rate 21 H 16 Respiratory Pattern Normal Blood Pressure 89/39 L 79/47 L Blood Pressure Mean 55 57 Pulse Ox 100 Oxygen Delivery Method Room Air Weight Weight: 66 kg Body Mass Index (BMI) 26.6 Physical Exam Const alert, no apparent distress and average body habitus Constitutional Narrative: Elderly female, fatigued and confused appearing, otherwise sitting back in bed fairly comfortably and in no acute distress. General Appearance: comfortable Orientation / Consciousness: confused HEENT normocephalic, head/scalp atraumatic, hearing grossly normal bilaterally, nasal mucous membranes and turbinates normal and moist oral mucous membranes Eyes PERRL, EOMs intact bilaterally and conjunctivae normal Neck full ROM Chest inspection of chest normal Resp normal respiratory effort, normal air movement, no use of accessory muscles and clear to auscultation bilaterally Cardio regular rate, regular rhythm, no murmurs and peripheral pulses 2+ throughout GI normal to inspection, nondistended, normoactive bowel sounds, soft to palpation, non-tender and non-distended Back/Spine normal ROM Extremity normal to inspection, full ROM and no pedal edema Skin no rashes or lesions noted Neuro moves all extremities and no focal motor deficits Results Lab / Micro Data 02/18/25 13:02 02/18/25 22:08 Labs: Laboratory Results - last 24 hr 02/18/25 13:02: WBC 11.0, RBC 3.37 L, Hgb 9.8 L, Hct 31.9 L, MCV 94.7, MCH 29.1, MCHC 30.7 L, RDW Std Deviation 54.7 H, RDW Coeff of Nuno 15.7 H, Plt Count 276, MPV 10.2, Immature Gran % (Auto) 0.500, Neut % (Auto) 89.7 H, Lymph % (Auto) 5.5 L, [place] % (Auto) 3.7, Eos % (Auto) 0.1, Baso % (Auto) 0.5, Absolute Neuts (auto) 9.9 H, Absolute Lymphs (auto) 0.60 L, Nucleated RBC % 0, Sodium 140, Potassium 7.5 H*, Chloride 99, Carbon Dioxide 11.1 L, Anion Gap 30 H, BUN 69 H, Creatinine 6.94 H, Estim Creat Clear Calc 7.11 L*, Est GFR (MDRD) Non-Af 6 L, BUN/Creatinine Ratio 9.9 L, Glucose 15 L*, Calcium 10.5, Troponin T High Sens 69 H* D 02/18/25 13:24: POC Glucose 139 H 02/18/25 14:12: POC Glucose 119 H Assessment & Plan Assessment/Plan (1) Acute renal failure: PLAN: Plan Patient is a 64-year-old female who presented to [facility] ED on 02/18/2025 with altered mental status. 1. Acute metabolic encephalopathy ? Admit under inpatient status to ICU. Telegraph Inspector consulted. Patient alert and oriented to person in the ED but not place or time. Suspect multifactorial due to hypoglycemia on arrival to the ED, acute renal failure with uremia, and possible acute UTI. Treatment as below. Avoid sedating medications as able. 2. ANTONIO on CKD stage IIIb with metabolic acidosis and hyperkalemia ? Nephrology consulted. Creatinine 6.49, BUN 66, bicarb 7, potassium 7.1 in the ED. No hyperkalemia EKG changes noted. Baseline creatinine around 1.5. Suspected prerenal ANTONIO possibly secondary to overdiuresis from home heart failure regimen versus due to GI losses and poor p.o. intake in setting of euglycemic DKA. Initially treated with bicarbonate drip at 150 mL/h but repeat labs showed worsening bicarb down to 4 by this ED with creatinine remaining at 6.5-6.8 and potassium still around 7. Transitioned to insulin drip to treat for euglycemic DKA as below. Will monitor labs every 4 hours. Has had minimal urine output since admission; Robles catheter in place for accurate I's and O's. Appreciate nephrology recommendations. 3. Type 2 diabetes mellitus with concern for euglycemic DKA ? Home diabetes regimen listed as pioglitazone, metformin and glipizide. However, on further chart review it appears that patient was on Jardiance for a period of time and it is unclear if she is currently taking this. Patient was initially hypoglycemic with blood sugar of 15 on arrival to the ED, presumed secondary to home glipizide with poor renal clearance and also some degree of consumption. Blood sugar improved significantly with appropriate treatment. However, given persistent severe anion gap metabolic acidosis as above, now treating with insulin drip for concern for euglycemic DKA. Will trend labs every 4 hours and follow closely. Hold home p.o. medications. 4. Concern for acute UTI ? UA unable to be collected to this point as patient has had no significant urine output. CT abdomen pelvis on admit with concern for cystitis and possible left-sided pyelonephritis. Most recent urine culture in late November grew pansensitive E. coli. Will treat empirically with IV ceftriaxone for now. 5. CAD with recent stenting, chronic HFrEF, hypertension, hyperlipidemia, history of PAD ? Follows with cardiology. Had drug-eluting stent placement x 1 to the LAD done at about 2 weeks prior to this admission. Last echo on 12/04 showed EF 45%, mild to moderate segmental systolic dysfunction, stage I diastolic dysfunction, no other concerning findings. Hypotensive to the 80s over 40s on admit. Giving IV fluids with insulin drip as above. Will hold home Entresto, Coreg and amlodipine. Okay to continue home aspirin, Brilinta, Zetia and statin. 6. Chronic iron deficiency anemia ? Hemoglobin 9.8 on admit, stable at baseline. Continue home iron supplement. 7. Anxiety/depression ? Continue home bupropion. DVT prophylaxis: Heparin subcu CODE STATUS: Full code, verified Expected disposition: TBD Total clinical time spent by myself addressing the patient's medical issues, reviewing all the data, and collaborating with patient's care team: 84 minutes. Charges/Coding Visit Charges Inpatient E&M: 29860 Init Hosp L3
[2025-02-18] MEDS: Sodium Bicarbonate 50 MEQ in Dextrose 5%-Water (1000mL Bag) 1,000 ML 150 MEQ IV (15:51)
[2025-02-18] MEDS: 0.9% Normal Saline (1000mL) 1,000 ML 150 ML IV (15:55)
--- NOTE | 2025-02-18 16:23 | CASEMGMT ---
Social Work Last assessment completed less than 30 days ago, SW spoke with patients niece who confirmed no changes since last assessment. Patients discharge plans remain uncertain at this time. Edyta Tirado, CELL TESTER, [employer]
[2025-02-18 16:50] LABS: Troponin T High Sens 2 HR 62 ng/L (<=14)
[2025-02-18 17:10] LABS: Anion Gap 31 (5-15); BUN 66 mg/dL (4-19); BUN/Creat Ratio 10.2 RATIO (10-20); Calcium,Total 10.6 mg/dL (7.6-11.0); Chloride 99 mmol/L (98-108); Estimated Creatinine Clearance 7.79 ml/min (50-250); Glucose 267 mg/dL (70-99)
[2025-02-18 17:13] LABS: Carbon Dioxide 7.0 mmol/L (21.0-32.0); Potassium 7.1 mmol/L (3.3-5.1)
[2025-02-18 17:49] LABS: Albumin, Serum 3.4 g/dL (3.4-4.8); Anion Gap 32 (5-15); BUN 65 mg/dL (4-19); BUN/Creat Ratio 10.0 RATIO (10-20); Calcium,Total 10.2 mg/dL (7.6-11.0); Chloride 99 mmol/L (98-108); Estimated Creatinine Clearance 7.73 ml/min (50-250); Glucose 240 mg/dL (70-99)
[2025-02-18 18:21] LABS: Carbon Dioxide 5.8 mmol/L (21.0-32.0); Potassium 7.3 mmol/L (3.3-5.1)
[2025-02-18] MEDS: Insulin Lispro 10 UNIT in Syringe 0 ML 6 UNIT IV (18:53)
[2025-02-18] MEDS: Heparin Injection (Vial) 5,000 UNIT/ML VIAL 5000 UNIT SC (22:13)
[2025-02-18] MEDS: TICAGRELOR 90 MG TABLET PO (22:13)
[2025-02-18] MEDS: 0.9% Saline Lock 10 ML Syringe IV (22:14)
[2025-02-18 22:56] LABS: BUN 67 mg/dL (4-19); BUN/Creat Ratio 9.8 RATIO (10-20); Calcium,Total 10.5 mg/dL (7.6-11.0); Chloride 95 mmol/L (98-108); Estimated Creatinine Clearance 7.42 ml/min (50-250); Glucose 183 mg/dL (70-99)
[2025-02-18 23:06] LABS: Anion Gap 37 (5-15); Carbon Dioxide 4.2 mmol/L (21.0-32.0); Potassium 6.8 mmol/L (3.3-5.1)
[2025-02-18 23:31] LABS: Base Excess -24 mmol/L (-2 to +2); PO2 125 mmHG (75-100); SITE L Radial; SO2 97 % (94-98)
[2025-02-19] VITALS (39 sets, daily range): BP systolic 87–129; BP diastolic 43–96; PULSE 72–92; RESP 12–25; TEMP 33.4–37.6; O2SAT 96–100; BMI 28.4
[2025-02-19] MEDS: Dext 5%-0.45% NS 1,000 ML 150 ML IV ×3 (00:11→13:10)
[2025-02-19] MEDS: Insulin Lispro 100 UNIT in 0.9% Normal Saline (100mL Bag) 99 ML CONT INF (00:13)
[2025-02-19 00:59] LABS: Troponin T High Sens 4 HR 64 ng/L (<=14)
[2025-02-19] MEDS: 0.9% Normal Saline (1000mL) 1,000 ML 999 ML IV (01:32)
[2025-02-19 01:33] LABS: BETA-HYDROXYBUTYRATE 3.2 mmol/L (0.0-0.3)
[2025-02-19 02:45] LABS: Magnesium 2.0 mg/dL (1.5-2.2)
[2025-02-19 03:00] LABS: Anion Gap 37 (5-15); Carbon Dioxide 5.5 mmol/L (21.0-32.0); Chloride 95 mmol/L (98-108)
[2025-02-19 04:25] LABS: Potassium 6.0 mmol/L (3.3-5.1)
[2025-02-19] MEDS: 0.9% Saline Lock 10 ML Syringe IV ×4 (05:31→15:10)
[2025-02-19 06:34] LABS: Hematocrit 25.0 % (37-47); Hemoglobin 7.9 g/dL (12.0-15.0); Mean Corp Hgb Conc 31.6 g/dL (32-36); Mean Corpuscular Volume 94.7 fL (81-99); Mean Platelet Vol. 9.9 fl (6.2-12.0); Platelet Count 234 K/mm3 (150-450); RBC Distribution Width CV 15.4 % (11.6-14.6); RBC Distribution Width SD 54.0 fl (35.1-43.9); Red Blood Count 2.64 M/mm3 (4.2-5.4); White Blood Count 12.8 K/mm3 (4.4-11.0)
[2025-02-19 07:04] LABS: Magnesium 1.9 mg/dL (1.5-2.2)
[2025-02-19 07:08] LABS: BUN 64 mg/dL (4-19); BUN/Creat Ratio 9.2 RATIO (10-20); Calcium,Total 9.9 mg/dL (7.6-11.0); Chloride 96 mmol/L (98-108); Estimated Creatinine Clearance 7.27 ml/min (50-250); Glucose 83 mg/dL (70-99)
[2025-02-19 07:18] LABS: Anion Gap 33 (5-15); Carbon Dioxide 8.4 mmol/L (21.0-32.0); Potassium 6.4 mmol/L (3.3-5.1)
--- NOTE | 2025-02-19 07:35 | PCM.PN.HOSP ---
Reason for Visit Chief Complaint: Altered mental status Objective Data Objective Data Vital Signs: Vital Signs Temp Pulse Resp BP Pulse Ox O2 Del Method 95.8 F L 79 19 H 108/51 L 100 Room Air 02/19/25 06:00 02/19/25 07:00 02/19/25 07:00 02/19/25 07:00 02/19/25 07:00 02/19/25 07:00 Oxygen Delivery Method Room Air Weight: 154 lb 8.705 oz Body Mass Index (BMI) 28.4 Intake & Output: Intake and Output for Last 24 Hours 02/17/25 02/18/25 02/19/25 23:59 23:59 23:59 Intake Total 3540 / 3810 2198.10 / 2198.10 Output Total 0 / 0 75 / 75 Balance 3540 / 3810 2123.10 / 2122.10 Lab / Micro Data 02/19/25 06:22 02/19/25 06:22 Labs: Laboratory Results - last 24 hr 02/18/25 13:02: WBC 11.0, RBC 3.37 L, Hgb 9.8 L, Hct 31.9 L, MCV 94.7, MCH 29.1, MCHC 30.7 L, RDW Std Deviation 54.7 H, RDW Coeff of Nuno 15.7 H, Plt Count 276, MPV 10.2, Immature Gran % (Auto) 0.500, Neut % (Auto) 89.7 H, Lymph % (Auto) 5.5 L, [place] % (Auto) 3.7, Eos % (Auto) 0.1, Baso % (Auto) 0.5, Absolute Neuts (auto) 9.9 H, Absolute Lymphs (auto) 0.60 L, Nucleated RBC % 0, Sodium 140, Potassium 7.5 H*, Chloride 99, Carbon Dioxide 11.1 L, Anion Gap 30 H, BUN 69 H, Creatinine 6.94 H, Estim Creat Clear Calc 7.11 L*, Est GFR (MDRD) Non-Af 6 L, BUN/Creatinine Ratio 9.9 L, Glucose 15 L*, Calcium 10.5, Troponin T High Sens 69 H* D 02/18/25 13:24: POC Glucose 139 H 02/18/25 14:12: POC Glucose 119 H 02/18/25 15:47: Sodium 137, Potassium 7.1 H*, Chloride 99, Carbon Dioxide 7.0 L*, Anion Gap 31 H, BUN 66 H, Creatinine 6.49 H, Estim Creat Clear Calc 7.79 L*, Est GFR (MDRD) Non-Af 7 L, BUN/Creatinine Ratio 10.2, Glucose 267 H, Calcium 10.6, Troponin T Hi Sens 2 Hr 62 H* 02/18/25 17:02: POC Glucose 210 H 02/18/25 17:05: Sodium 137, Potassium 7.3 H*, Chloride 99, Carbon Dioxide 5.8 L*, Anion Gap 32 H, BUN 65 H, Creatinine 6.54 H, Estim Creat Clear Calc 7.73 L*, Est GFR (MDRD) Non-Af 7 L, BUN/Creatinine Ratio 10.0, Glucose 240 H, Calcium 10.2, Phosphorus 8.0 H, Troponin T Hi Sens 4Hr 64 H*, Albumin 3.4 02/18/25 19:41: POC Glucose 270 H 02/18/25 21:35: POC Glucose 198 H 02/18/25 22:08: Sodium 136, Potassium 6.8 H*, Chloride 95 L, Carbon Dioxide 4.2 L*, Anion Gap 37 H, BUN 67 H, Creatinine 6.82 H, Estim Creat Clear Calc 7.42 L*, Est GFR (MDRD) Non-Af 6 L, BUN/Creatinine Ratio 9.8 L, Glucose 183 H, Calcium 10.5, b-Hydroxybutyric mmol/L 3.2 H 02/19/25 00:11: POC Glucose 146 H 02/19/25 01:11: POC Glucose 131 H 02/19/25 02:16: Sodium 138, Potassium 6.0 H*, Chloride 95 L, Carbon Dioxide 5.5 L*, Anion Gap 37 H, Phosphorus 8.9 H, Magnesium 2.0, POC Glucose 118 H 02/19/25 03:28: POC Glucose 106 02/19/25 04:22: POC Glucose 101 02/19/25 05:26: POC Glucose 88 02/19/25 06:19: POC Glucose 79 02/19/25 06:22: WBC 12.8 H, RBC 2.64 L, Hgb 7.9 L, Hct 25.0 L, MCV 94.7, MCH 29.9, MCHC 31.6 L, RDW Std Deviation 54.0 H, RDW Coeff of Nuno 15.4 H, Plt Count 234, MPV 9.9, Sodium 138 02/19/25 06:22: Sodium Cancelled, Potassium 6.4 H* 02/19/25 06:22: Potassium Cancelled, Chloride 96 L 02/19/25 06:22: Chloride Cancelled, Carbon Dioxide 8.4 L* 02/19/25 06:22: Carbon Dioxide Cancelled, Anion Gap 33 H 02/19/25 06:22: Anion Gap Cancelled, BUN 64 H, Creatinine 6.98 H, Estim Creat Clear Calc 7.27 L*, Est GFR (MDRD) Non-Af 6 L, BUN/Creatinine Ratio 9.2 L, Glucose 83, Calcium 9.9, Phosphorus 8.3 H, Magnesium 1.9 ABG Data ABG results: ABG 02/18/25 23:25 Specimen Type ART Sample Site L Radial pH 7.10 L* Bicarbonate Actual 5.7 L Total CO2 6 Base Excess -24 L O2 Saturation 97 ABG pCO2 18.7 L* ABG pO2 125 H Aftab Test N/A O2 Delivery Device Room Air Vent Mode Not entered Crit Call To/Read Back Yes Blood Gas Notified Whom Dr Ferreira Blood Gas Notified Time 23:27:58 Radiography Diagnostic Testing: Radiology Impression Abdomen/Pelvis CT 02/18/25 15:06 IMPRESSION: 1. No hydronephrosis. 2. Possible cystitis. Additional nonspecific LEFT perinephric stranding could be reactive to the below or reflect pyelonephritis, unable to further evaluate in the absence of IV contrast. Correlate with urinalysis. 3. Abnormal appearance of the LEFT kidney very poorly delineated in the absence of IV contrast but with vaguely masslike appearance suspicious for neoplasm. Recommend clinical follow-up including correlation with recent tissue sampling. 4. 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 Recommend clinical/oncologic follow-up. 5. Additional description as above. Incidental Finding Alert: As above. Management of this incidental finding should follow the [employer] (ACR) Incidental Findings Committee recommendations. Reading Location: [facility] Physical Exam Narrative Seen and examined. Patient mildly confused but answers questions appropriately. States she had occasional burning micturition General: Alert, Oriented x3, Cooperative intermittent confusion HEENT: Atraumatic, PERRLA, EOMI, Normocephalic. Oral: No Gingival or Mucosal Lesions/ Ulcerations Neck: Supple, No JVD, Negative Carotid Bruits Chest wall/Lungs: Air entry diminished in bilateral lung bases. No crepitation/rhonchi Cardiovascular: Systolic murmur over right second ICS. Sinus rhythm. Abdomen: Bowel Sounds Present, Soft, Non Tender, Non-Distended : No urine output in Robles catheter no renal angle tenderness. No suprapubic tenderness. Extremities: Mild pedal edema, Capillary Refill Less than 3 Seconds Skin: No rashes, No breakdown Musculoskeletal: No Tenderness to Palpation of Joints or Extremities Neurological: Cranial nerves II-XII grossly intact, DTR 2+/4. No acute focal neurological deficit. Psych/Mental Status: Answers questions slowly. Flat affect. Assessment & Plan Assessment/Plan (1) Acute renal failure: PLAN: Plan Patient is a 64-year-old female who presented to [facility] ED on 02/18/2025 with altered mental status. For last couple days she was having loose bowel movement and urine yellow color. She is confused but answers month, and her age correctly and even the day of the week. She said her urine amount was okay but here she is anuric. She said she had kidney biopsy in the past 1. Acute metabolic encephalopathy ? Admit under inpatient status to ICU. Global Account Manager consulted. Patient alert and oriented to person in the ED but not place or time. Suspect multifactorial due to hypoglycemia on arrival to the ED, acute renal failure with uremia, and possible acute UTI. Treatment as below. Avoid sedating medications as able. 02/19: Encephalopathy is better and answering questions appropriately but seems to still delayed reaction. 2. ANTONIO on CKD stage IIIb with metabolic acidosis and hyperkalemia and anuria ? Nephrology consulted. Creatinine 6.49, BUN 66, bicarb 7, potassium 7.1 in the ED. No hyperkalemia EKG changes noted. Baseline creatinine around 1.5. Suspected prerenal ANTONIO possibly secondary to overdiuresis from home heart failure regimen versus due to GI losses and poor p.o. intake in setting of euglycemic DKA. 02/19: Initially treated with bicarb drip but resulted into worsening bicarb from 7 to 4 mEq therefore changed to D5 half NS and on insulin drip. No urine output. Nephrology is consulted. Hyperkalemia with potassium 6.4. Discussed with the rn bariatric. Right IJ temporary dialysis catheter was inserted by rn bariatric. Plan for dialysis today. 3. Type 2 diabetes mellitus with concern for euglycemic DKA with hypoglycemia on presentation ? Home diabetes regimen listed as pioglitazone, metformin and glipizide. Patient was initially hypoglycemic with blood sugar of 15 on arrival to the ED. Severe anion gap metabolic acidosis Patient being managed on DKA protocol. Glucose 83. Bicarb 8.3, anion gap 33. 4. Concern for acute UTI Patient complained of intermittent burning micturition. No urine output urine for testing. CT abdomen pelvis on admit with concern for cystitis and possible left-sided pyelonephritis. Most recent urine culture in late November grew pansensitive E. coli. Started empirically on IV ceftriaxone 5. CAD with recent stenting, chronic HFrEF, hypertension, hyperlipidemia, history of PAD ? Follows with cardiology. Had drug-eluting stent placement x 1 to the LAD done at about 2 weeks prior to this admission. Last echo on 12/04 showed EF 45%, mild to moderate segmental systolic dysfunction, stage I diastolic dysfunction, no other concerning findings. Hypotensive to the 80s over 40s on admit. Giving IV fluids with insulin drip as above. Will hold home Entresto, Coreg and amlodipine. Okay to continue home aspirin, Brilinta, Zetia and statin. 12/20: Continue aspirin and Brilinta rest as mentioned above 6. Chronic iron deficiency anemia ? Hemoglobin 9.8 on admit, 02/19: Hemoglobin dropped to 7.9. Monitor. 7. Anxiety/depression ? Continue home bupropion. DVT prophylaxis: Heparin subcu CODE STATUS: Full code, verified Total time of the visit including total time spent in counseling or coordination of care, (more than 50% of the total time, spent in obtaining medical information from nurses and other ancillary care providers ,explaining to the patient about labs, imaging, diagnosis and management of active complex medical conditions), discussion with rn bariatric and intensive, review of labs and imaging is 40 minutes. Charges/Coding Visit Charges Inpatient E&M: 04147 Subs Hosp L3
--- NOTE | 2025-02-19 10:29 | NURSING ---
Dr Boyd at bedside speaking to patient and her daughter. Discussed the need to start dialysis and place a temporary dialysis catheter. Patient is confused so her daughter signed consent to proceed with line placement and subsequent hemodialysis
--- NOTE | 2025-02-19 10:45 | RAD_ITS ---
PROCEDURE: CXR FOR LINE PLACEMENT 02/19/2025 REASON FOR EXAM: RIGHT IJ HEMODIALYSIS CATHETER PLACED TECHNIQUE: Procedure Code: RADCXRLP Modality: DX Procedure: CXR FOR LINE PLACEMENT COMPARISON: Chest x-ray of 01/28/2025. RAD/CXR for Line Placement IMPRESSION: Right jugular central venous catheter seen, with tip projecting over the right atrium. No pneumothorax is seen. Lungs are hypoinflated, but are apparently clear of acute disease. No pleural effusion is seen. The cardiomediastinal silhouette is stable. Reading Location: [place] [id number]
[2025-02-19] MEDS: TICAGRELOR 90 MG TABLET PO ×2 (10:51→22:34)
[2025-02-19] MEDS: buPROPion (XL) 150 MG TABLET.XL PO (10:51)
[2025-02-19] MEDS: Heparin Injection (Vial) 5,000 UNIT/ML VIAL 5000 UNIT SC (10:51)
--- NOTE | 2025-02-19 11:26 | PCMCONS.TICU ---
HPI Consult Data Date of Consult: 02/19/25 HPI Narrative HPI Narrative: ROSALINO LEVY, is a 64 F who presents [ ] [facility] Medical History Hypertension NSTEMI (non-ST elevated myocardial infarction) Heart failure with reduced left ventricular function Respiratory failure Septic shock Hyperlipidemia DM type 2 (diabetes mellitus, type 2) Anemia Wears glasses Post-menopausal Alcohol use Depression History of steroid therapy Arthritis Uses wheelchair Bladder disease Low iron Stroke/cerebrovascular accident Dietary restriction History of renal disease Chronic cough Smoker Shortness of breath on exertion History of pain when walking DM type 2 (diabetes mellitus, type 2) Amputation of one or more toes Peripheral arterial disease Gas gangrene Osteomyelitis Hyperlipidemia Home Medications ?Medication ?Instructions ?Recorded ?Last Taken ?Type aspirin 81 mg chewable tablet 81 mg PO DAILY@0800 Blood thinner 12/27/15 02/18/25 History ferrous sulfate 325 mg (65 mg 325 mg PO DAILY SUPPLEMENT 01/01/22 02/18/25 History iron) tablet bupropion HCl 150 mg 24 hr tablet, 150 mg PO DAILY pain 12/03/24 02/18/25 History extended release ezetimibe 10 mg tablet 10 mg PO DAILY cholesterol 12/03/24 02/18/25 History glipizide 2.5 mg tablet, extended 2.5 mg PO DAILY diabetes 12/03/24 02/18/25 History release 24 hr metformin 1,000 mg tablet 1,000 mg PO BID diabetes 12/03/24 02/18/25 History pioglitazone 30 mg tablet 30 mg PO DAILY diabetes 12/03/24 02/18/25 History amlodipine 10 mg tablet 10 mg PO DAILY htn #30 tabs 12/11/24 02/18/25 Rx carvedilol 3.125 mg tablet 3.125 mg PO BIDCM HTN #60 tabs 12/11/24 02/18/25 Rx sodium chloride 0.65 % nasal spray 1 spray intranasal BID PRN nasal 01/29/25 Unknown History aerosol (Saline Nasal) congestion atorvastatin 80 mg tablet 80 mg PO DAILY 02/18/25 02/17/25 History sacubitril 24 mg-valsartan 26 mg 1 tab PO BID 02/18/25 02/18/25 History tablet (Entresto) ticagrelor 90 mg tablet (Brilinta) 90 mg PO BID 02/18/25 02/18/25 History Allergy/AdvReac Type Severity Reaction Status Date / Time latex Allergy Rash Verified 02/18/25 13:08 Surgical History H/O biopsy of kidney Hx of eye surgery Hx of left cataract extraction Social History household members: none Smoking Status: Current every day smoker tobacco type: cigarettes substance use type: does not use Objective Data Objective Data Vital Signs: Vital Signs Last response Temperature 35.4 C L 02/19/25 06:00 Temperature Source Core 02/19/25 06:00 Pulse Rate 83 02/19/25 10:00 Respiratory Rate 20 H 02/19/25 10:00 Respiratory Effort Normal, Non-Labored 02/19/25 08:00 Respiratory Depth Normal 02/19/25 08:00 Respiratory Pattern Normal 02/19/25 08:00 Blood Pressure 108/49 L 02/19/25 10:00 Blood Pressure Mean 67 02/19/25 10:00 Blood Pressure Source Monitor 02/19/25 10:00 Blood Pressure Position Semi-Fowlers 02/19/25 10:00 Blood Pressure Location Right Arm 02/19/25 10:00 Pulse Ox 100 02/19/25 10:00 Oxygen Delivery Method Room Air 02/19/25 10:00 I&O: I&O Last 24 Hours 02/18/25 02/18/25 02/19/25 11:59 23:59 11:59 Intake Total 3540 / 3810 2198.10 / 2198.10 Output Total 0 / 0 150 / 150 Balance 3540 / 3810 2048.10 / 2048.10 I&O: Total Stay 02/18/25 12:57 thru 02/19/25 10:00 Intake Total 5738.10 Output Total 150 Balance 5588.10 Current Meds Ordered / Administered: Current meds ordered / Administered Generic Name Dose Route Start Last Admin Trade Name Freq PRN Reason Stop Dose Admin Acetaminophen 650 mg 02/18/25 16:18 Acetaminophen 325 Mg Tablet PO Q6H PRN PRN Pain 1-10 Or Fever>100.7 Aspirin 81 mg 02/19/25 08:00 02/19/25 10:51 Aspirin 81 Mg Tab.Chew PO 81 mg DAILY@0800 I[facility]AN Administration Atorvastatin Calcium 80 mg 02/19/25 10:00 02/19/25 10:51 Atorvastatin Calcium 80 Mg Tablet PO 80 mg DAILY IHSAN Administration Bupropion HCl 150 mg 02/19/25 10:00 02/19/25 10:51 Bupropion (Xl) 150 Mg Tablet.Xl PO 150 mg DAILY IHSAN Administration Ezetimibe 10 mg 02/19/25 10:00 02/19/25 10:51 Ezetimibe 10 Mg Tablet PO 10 mg DAILY IHSAN Administration Ferrous Sulfate 325 mg 02/19/25 12:00 02/19/25 10:51 Ferrous Sulfate 325 Mg Tablet PO 325 mg DAILY@1200 [facility] Administration Glucagon 1 mg 02/18/25 16:18 Glucagon 1 Mg/Ml Syringe IM X1 PRN Hypoglycemia Protocol Glucagon 1 mg 02/18/25 23:02 Glucagon 1 Mg/Ml Syringe IM X1 PRN Hypoglycemia Protocol Hemodialysis Solution 6 bag 02/19/25 11:00 Pureflow B 2k Dialysis Soln 1 Bag PF 02/19/25 23:00 UD IHSAN Protocol Heparin Sodium (Porcine) 5,000 unit 02/18/25 22:00 02/19/25 10:51 Heparin Injection (Vial) 5,000 Unit/Ml Vial SC 5,000 unit Q12 IHSAN Administration Heparin Sodium (Porcine) 1,000 - 3,000 units 02/19/25 10:58 Heparin 10,000 Units/10 Ml Vial IV 02/19/25 22:59 X1 PRN HD catheter closing Dextrose 250 mls @ 0 mls/hr 02/18/25 16:18 02/19/25 09:56 Dextrose 10%-Water IV 999 mls/hr .Q0M PRN Administration HYPOGLYCEMIA Protocol As Directed Insulin Human Lispro 100 unit/ 100 mls @ 0 mls/hr 02/18/25 23:15 02/19/25 09:52 Sodium Chloride CONT INF 0 units/hr .Q0M IHSAN 0 mls/hr Protocol Titration As Directed Dextrose 250 mls @ 0 mls/hr 02/18/25 23:02 Dextrose 10%-Water IV .Q0M PRN HYPOGLYCEMIA Protocol As Directed Dextrose/Sodium Chloride 1,000 mls @ 150 mls/hr 02/19/25 07:00 02/19/25 06:21 IV 150 mls/hr .Q6H40M I[facility]AN Administration Insulin Human Lispro 0 unit 02/18/25 16:18 02/19/25 09:17 Insulin Lispro 100 Unit/Ml Insuln.Pen SC Not Given ACHS [facility] Protocol Melatonin 3 mg 02/18/25 16:18 Melatonin 3 Mg Tablet PO QHS PRN PRN INSOMNIA Ondansetron HCl 4 mg 02/18/25 16:18 02/19/25 05:31 Ondansetron 4 Mg/2 Ml Vial IV 4 mg Q8H PRN PRN Administration NAUSEA/VOMITING Sodium Chloride 1 spray 02/18/25 16:18 Sodium Chloride 0.65% 1 Collins Collins.Btl NASAL BID PRN NASAL CONGESTION Sodium Chloride 10 - 40 ml 02/18/25 16:45 02/19/25 06:20 0.9% Saline Lock 10 Ml Syringe IV 10 ml UD PRN Administration SALINE FLUSH Sodium Chloride 1,000 ml 02/19/25 11:00 0.9% Normal Saline 1,000 Ml Iv.Soln. OPERA.SITE 02/19/25 22:59 X1 IHSAN Sodium Chloride 200 ml 02/19/25 10:58 0.9% Normal Saline 1,000 Ml Iv.Soln. IV 02/19/25 22:59 X1 PRN to maintain SBP >90mmHg during Dialysis Ticagrelor 90 mg 02/18/25 22:00 02/19/25 10:51 Ticagrelor 90 Mg Tablet PO 90 mg BID IHSAN Administration Lab / Micro Data 02/19/25 06:22 02/19/25 06:22 Labs: Laboratory Results - last 24 hr 02/18/25 13:02: WBC 11.0, RBC 3.37 L, Hgb 9.8 L, Hct 31.9 L, MCV 94.7, MCH 29.1, MCHC 30.7 L, RDW Std Deviation 54.7 H, RDW Coeff of Nuno 15.7 H, Plt Count 276, MPV 10.2, Immature Gran % (Auto) 0.500, Neut % (Auto) 89.7 H, Lymph % (Auto) 5.5 L, [place] % (Auto) 3.7, Eos % (Auto) 0.1, Baso % (Auto) 0.5, Absolute Neuts (auto) 9.9 H, Absolute Lymphs (auto) 0.60 L, Nucleated RBC % 0, Sodium 140, Potassium 7.5 H*, Chloride 99, Carbon Dioxide 11.1 L, Anion Gap 30 H, BUN 69 H, Creatinine 6.94 H, Estim Creat Clear Calc 7.11 L*, Est GFR (MDRD) Non-Af 6 L, BUN/Creatinine Ratio 9.9 L, Glucose 15 L*, Calcium 10.5, Troponin T High Sens 69 H* D 02/18/25 13:24: POC Glucose 139 H 02/18/25 14:12: POC Glucose 119 H 02/18/25 15:47: Sodium 137, Potassium 7.1 H*, Chloride 99, Carbon Dioxide 7.0 L*, Anion Gap 31 H, BUN 66 H, Creatinine 6.49 H, Estim Creat Clear Calc 7.79 L*, Est GFR (MDRD) Non-Af 7 L, BUN/Creatinine Ratio 10.2, Glucose 267 H, Calcium 10.6, Troponin T Hi Sens 2 Hr 62 H* 02/18/25 17:02: POC Glucose 210 H 02/18/25 17:05: Sodium 137, Potassium 7.3 H*, Chloride 99, Carbon Dioxide 5.8 L*, Anion Gap 32 H, BUN 65 H, Creatinine 6.54 H, Estim Creat Clear Calc 7.73 L*, Est GFR (MDRD) Non-Af 7 L, BUN/Creatinine Ratio 10.0, Glucose 240 H, Calcium 10.2, Phosphorus 8.0 H, Troponin T Hi Sens 4Hr 64 H*, Albumin 3.4 02/18/25 19:41: POC Glucose 270 H 02/18/25 21:35: POC Glucose 198 H 02/18/25 22:08: Sodium 136, Potassium 6.8 H*, Chloride 95 L, Carbon Dioxide 4.2 L*, Anion Gap 37 H, BUN 67 H, Creatinine 6.82 H, Estim Creat Clear Calc 7.42 L*, Est GFR (MDRD) Non-Af 6 L, BUN/Creatinine Ratio 9.8 L, Glucose 183 H, Calcium 10.5, b-Hydroxybutyric mmol/L 3.2 H 02/19/25 00:11: POC Glucose 146 H 02/19/25 01:11: POC Glucose 131 H 02/19/25 02:16: Sodium 138, Potassium 6.0 H*, Chloride 95 L, Carbon Dioxide 5.5 L*, Anion Gap 37 H, Phosphorus 8.9 H, Magnesium 2.0, POC Glucose 118 H 02/19/25 03:28: POC Glucose 106 02/19/25 04:22: POC Glucose 101 02/19/25 05:26: POC Glucose 88 02/19/25 06:19: POC Glucose 79 02/19/25 06:22: WBC 12.8 H, RBC 2.64 L, Hgb 7.9 L, Hct 25.0 L, MCV 94.7, MCH 29.9, MCHC 31.6 L, RDW Std Deviation 54.0 H, RDW Coeff of Nuno 15.4 H, Plt Count 234, MPV 9.9, Sodium 138 02/19/25 06:22: Sodium Cancelled, Potassium 6.4 H* 02/19/25 06:22: Potassium Cancelled, Chloride 96 L 02/19/25 06:22: Chloride Cancelled, Carbon Dioxide 8.4 L* 02/19/25 06:22: Carbon Dioxide Cancelled, Anion Gap 33 H 02/19/25 06:22: Anion Gap Cancelled, BUN 64 H, Creatinine 6.98 H, Estim Creat Clear Calc 7.27 L*, Est GFR (MDRD) Non-Af 6 L, BUN/Creatinine Ratio 9.2 L, Glucose 83, Calcium 9.9, Phosphorus 8.3 H, Magnesium 1.9 02/19/25 07:29: POC Glucose 72 L 02/19/25 09:50: POC Glucose 57 L Micro: Microbiology 02/19/25 06:50 Vomitus Gastric Occult Blood - Final Occult Blood Positive ABG Data ABG results: ABG 02/18/25 23:25 Specimen Type ART Sample Site L Radial pH 7.10 L* Bicarbonate Actual 5.7 L Total CO2 6 Base Excess -24 L O2 Saturation 97 ABG pCO2 18.7 L* ABG pO2 125 H Aftab Test N/A O2 Delivery Device Room Air Vent Mode Not entered Crit Call To/Read Back Yes Blood Gas Notified Whom Dr Ferreira Blood Gas Notified Time 23:27:58 Imaging Radiology Impression Abdomen/Pelvis CT 02/18/25 15:06 IMPRESSION: 1. No hydronephrosis. 2. Possible cystitis. Additional nonspecific LEFT perinephric stranding could be reactive to the below or reflect pyelonephritis, unable to further evaluate in the absence of IV contrast. Correlate with urinalysis. 3. Abnormal appearance of the LEFT kidney very poorly delineated in the absence of IV contrast but with vaguely masslike appearance suspicious for neoplasm. Recommend clinical follow-up including correlation with recent tissue sampling. 4. 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 Recommend clinical/oncologic follow-up. 5. Additional description as above. Incidental Finding Alert: As above. Management of this incidental finding should follow the [employer] (ACR) Incidental Findings Committee recommendations. Reading Location: [id number] Chest X-Ray 02/19/25 10:45 IMPRESSION: Right jugular central venous catheter seen, with tip projecting over the right atrium. No pneumothorax is seen. Lungs are hypoinflated, but are apparently clear of acute disease. No pleural effusion is seen. The cardiomediastinal silhouette is stable. Reading Location: [id number] Assessment and Plan . Assessment and plan: HPI 64 F who presented to [facility] ED on 02/18/2025 with altered mental status. Medical history significant for HFrEF, type 2 diabetes mellitus, hypertension, hyperlipidemia, and CKD stage IIIb. Patient was hospitalized here in early December for acute UTI with suspected pyelonephritis. During that hospitalization she was found to have a left renal mass concerning for malignancy. 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 In addition to this, patient was hospitalized here in late January for chest pain and was found on left heart cath to have multivessel disease. She was transferred to [facility] for further evaluation and per family she had 1 stent placed in the LAD there. She was discharged home from there last . Family noted that patient was doing well for the first few days but then this weekend she was not eating as much and seemed more lethargic. This morning she became even more altered and family noted that her blood sugar was in the 40s, so they called EMS to bring her in. In the ED she was found to have a blood sugar of 15 and she was treated with an amp of D50 with improvement. She was hypotensive to the 80s over 40s and in sinus bradycardia to the 50s, was otherwise afebrile and stable on room air at rest. Labs notable for potassium 7.1, bicarb 7, creatinine 6.49, BUN 66. Robles catheter was placed in the ED with minimal urine output. CT abdomen pelvis without contrast showed known left kidney findings consistent with malignancy as well as left retroperitoneal adenopathy consistent with known metastases; also showed possible cystitis with possible left nonspecific perinephric stranding concerning for pyelonephritis. She is currently in the ICU. She is confused, but NAD and does not appear toxic. BP is marginal. UOP is minimal. Insulin is infusing at low rate. HD catheter has been placed and HD is set to initiate. EXAM GEN appears ill, but NAD VS as above HEENT MMM NECK supple COR RRR CHEST CTA ABD soft EXT minimal edema SKIN w/d REDDY NF A/P 1. Advanced renal insufficiency w/ oliguria 2. Severe AGMA 3. Hyperkalemia 4. DM - recent metformin use 5. Delirium / encephalopathy 6. 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
--- NOTE | 2025-02-19 11:35 | CON.PCM.RE_ITS ---
Assessment & Plan Assessment/Plan (1) Acute renal failure: PLAN: Baseline creatinine is around 1.5. As of 01/29/2025, her creatinine was close to baseline. She had coronary angiogram around that time. Came in with acute renal failure, creatinine of more than 5, anuria. CT abdomen without any hydronephrosis. Severe acidosis, elevated ketoacidosis, lactic acid level pending. Suspected euglycemic DKA. Metformin induced lactic acidosis being ruled out. As per previous records, she was on SGLT2 inhibitor, this was not on preadmission medication list at this time, not sure if she was actually taking it. Either way in view of severe acidosis, hyperkalemia she will need renal replacement therapy at least on a temporary basis. Patient could not consent, spoke to daughter at bedside. Explained the urgency of situation. She is agreeable for dialysis today. Acidosis, elevated anion gap, either euglycemic DKA from previous use of SGLT2 inhibitor, metformin induced lactic acidosis need to be ruled out. Has been on bicarbonate drip, will plan for dialysis today Hyperkalemia. Predominantly related to acidosis and renal failure. Should improve with dialysis on 2K bath Renal cell carcinoma. Poorly differentiated, squamous type it appears. Yet to start any treatments. She saw urology here and subsequently went to [facility] as per daughter. They would like to get all care locally. Planning to see urology and oncology here locally. Once medically stable, will need urology and oncology consults Discussed with hospitalist (2) Hyperkalemia: HPI Consult Data Date of Consult: 02/19/25 HPI Narrative Reason for Consultation: Acute renal failure HPI Narrative: ROSAILNO LEVY, is a 64 F who presents to the hospital with confusion, weakness. Nephrology on consultation in view of acute renal failure. Somewhat complicated history. She was recently admitted here twice. First admission, she was found to have a renal mass, was seen by urology, subsequently went to [facility]. Biopsy consistent with malignancy, poorly differentiated with some squamous cell features, presumably this is stage IV as per my discussion with daughter bedside. Did not start any treatment yet. In the meantime she had non-ST elevation AK, recently had coronary angiogram. Currently on Brilinta in view of history of stents. Presented with altered mental status. On admission in the ER, she was found to have acute renal failure, creatinine more than 5, severe acidosis, significantly elevated ketoacidosis without hyperglycemia. Overnight she was treated with bicarbonate drip with partial improvement but persistent acidosis, hyperkalemia. Not much urine output overnight. She is currently somewhat confused, does not respond to basic questions but not completely coherent. Varner catheter indwelling without much urine output. CT abdomen without any hydronephrosis. [facility] Medical History Hypertension NSTEMI (non-ST elevated myocardial infarction) Heart failure with reduced left ventricular function Respiratory failure Septic shock Hyperlipidemia DM type 2 (diabetes mellitus, type 2) Anemia Wears glasses Post-menopausal Alcohol use Depression History of steroid therapy Arthritis Uses wheelchair Bladder disease Low iron Stroke/cerebrovascular accident Dietary restriction History of renal disease Chronic cough Smoker Shortness of breath on exertion History of pain when walking DM type 2 (diabetes mellitus, type 2) Amputation of one or more toes Peripheral arterial disease Gas gangrene Osteomyelitis Hyperlipidemia Home Medications ?Medication ?Instructions ?Recorded ?Last Taken ?Type aspirin 81 mg chewable tablet 81 mg PO DAILY@0800 Bloo d thinner 12/27/15 02/18/25 History ferrous sulfate 325 mg (65 mg 325 mg PO DAILY SUPPLEME NT 01/01/22 02/18/25 History iron) tablet bupropion HCl 150 mg 24 hr tablet, 150 mg PO DAILY simran n 12/03/24 02/18/25 History extended release ezetimibe 10 mg tablet 10 mg PO DAILY cholesterol 0 12/03/24 02/18/25 History glipizide 2.5 mg tablet, extended 2.5 mg PO DAILY diab etes 12/03/24 02/18/25 History release 24 hr metformin 1,000 mg tablet 1,000 mg PO BID diabetes 02/18/25 History pioglitazone 30 mg tablet 30 mg PO DAILY diabetes 11/0602/18/25 History amlodipine 10 mg tablet 10 mg PO DAILY htn #30 tabs 12/11/24 02/18/25 Rx carvedilol 3.125 mg tablet 3.125 mg PO BIDCM HTN #60 t abs 12/11/24 02/18/25 Rx sodium chloride 0.65 % nasal spray 1 spray intranasal BID PRN nasal 01/29/25 Unknown History aerosol (Saline Nasal) congestion atorvastatin 80 mg tablet 80 mg PO DAILY 02/18/2502/04 History sacubitril 24 mg-valsartan 26 mg 1 tab PO BID 02/18/25 02/18/25 History tablet (Entresto) ticagrelor 90 mg tablet (Brilinta) 90 mg PO BID 02/18/25 History Allergy/AdvReac Type Severity Reaction Status Date / Time latex Allergy Rash Verified 02/18/25 13:08 Surgical History H/O biopsy of kidney Hx of eye surgery Hx of left cataract extraction Social History household members: none Smoking Status: Current every day smoker tobacco type: cigarettes substance use type: does not use ROS ROS Narrative Negative except above, unable to give much history Physical Exam Narrative no obvious distress no pallor no icterus no JVD s1s2 no murmurs lungs clear abdomen soft no organomegaly no edema no cyanosis varner + Lab / Micro Data 02/19/25 06:22 02/19/25 06:22 Labs: Laboratory Results - last 24 hr 02/18/25 13:02: WBC 11.0, RBC 3.37 L, Hgb 9.8 L, Hct 31.9 L, MCV 94.7, MCH 29.1, MCHC 30.7 L, RDW Std Deviation 54.7 H, RDW Coeff of Nuno 15.7 H, Plt Count 276, MPV 10.2, Immature Gran % (Auto) 0.500, Neut % (Auto) 89.7 H, Lymph % (Auto) 5.5 L, [place] % (Auto) 3.7, Eos % (Auto) 0.1, Baso % (Auto) 0.5, Absolute Neuts (auto) 9.9 H, Absolute Lymphs (auto) 0.60 L, Nucleated RBC % 0, Sodium 140, Potassium 7.5 H*, Chloride 99, Carbon Dioxide 11.1 L, Anion Gap 30 H, BUN 69 H, Creatinine 6.94 H, Estim Creat Clear Calc 7.11 L*, Est GFR (MDRD) Non-Af 6 L, B UN/Creatinine Ratio 9.9 L, Glucose 15 L*, Calcium 10.5, Troponin T High Sens 69 H* D 12/15/25 13:24: POC Glucose 139 H 02/18/25 14:12: POC Glucose 119 H 02/18/25 15:47: Sodium 137, Potassium 7.1 H*, Chloride 99, Carbon Dioxide 7.0 L* , Anion Gap 31 H, BUN 66 H, Creatinine 6.49 H, Estim Creat Clear Calc 7.79 L*, E st GFR (MDRD) Non-Af 7 L, BUN/Creatinine Ratio 10.2, Glucose 267 H, Calcium 10.6, Troponin T Hi Sens 2 Hr 62 H* 02/18/25 17:02: POC Glucose 210 H 02/18/25 17:05: Sodium 137, Potassium 7.3 H*, Chloride 99, Carbon Dioxide 5.8 L* , Anion Gap 32 H, BUN 65 H, Creatinine 6.54 H, Estim Creat Clear Calc 7.73 L*, E st GFR (MDRD) Non-Af 7 L, BUN/Creatinine Ratio 10.0, Glucose 240 H, Calcium 10.2, Phosphorus 8.0 H, Troponin T Hi Sens 4Hr 64 H*, Albumin 3.4 02/18/25 19:41: POC Glucose 270 H 02/18/25 21:35: POC Glucose 198 H 02/18/25 22:08: Sodium 136, Potassium 6.8 H*, Chloride 95 L, Carbon Dioxide 4.2 L*, Anion Gap 37 H, BUN 67 H, Creatinine 6.82 H, Estim Creat Clear Calc 7.42 L*, Est GFR (MDRD) Non-Af 6 L, BUN/Creatinine Ratio 9.8 L, Glucose 183 H, Calcium 10.5, b-Hydroxybutyric mmol/L 3.2 H 02/19/25 00:11: POC Glucose 146 H 02/19/25 01:11: POC Glucose 131 H 02/19/25 02:16: Sodium 138, Potassium 6.0 H*, Chloride 95 L, Carbon Dioxide 5.5 L*, Anion Gap 37 H, Phosphorus 8.9 H, Magnesium 2.0, POC Glucose 118 H 02/19/25 03:28: POC Glucose 106 02/19/25 04:22: POC Glucose 101 02/19/25 05:26: POC Glucose 88 02/19/25 06:19: POC Glucose 79 02/19/25 06:22: WBC 12.8 H, RBC 2.64 L, Hgb 7.9 L, Hct 25.0 L, MCV 94.7, MCH 29.9, MCHC 31.6 L, RDW Std Deviation 54.0 H, RDW Coeff of Nuno 15.4 H, Plt Count 234, MPV 9.9, Sodium 138 02/19/25 06:22: Sodium Cancelled, Potassium 6.4 H* 02/19/25 06:22: Potassium Cancelled, Chloride 96 L 02/19/25 06:22: Chloride Cancelled, Carbon Dioxide 8.4 L* 02/19/25 06:22: Carbon Dioxide Cancelled, Anion Gap 33 H 02/19/25 06:22: Anion Gap Cancelled, BUN 64 H, Creatinine 6.98 H, Estim Creat Clear Calc 7.27 L*, Est GFR (MDRD) Non-Af 6 L, BUN/Creatinine Ratio 9.2 L, Glucose 83, Calcium 9.9, Phosphorus 8.3 H, Magnesium 1.9 02/19/25 07:29: POC Glucose 72 L 02/19/25 09:50: POC Glucose 57 L Micro: Microbiology 02/19/25 06:50 Vomitus Gastric Occult Blood - Final Occult Blood Positive ABG Data ABG results: ABG 02/18/25 23:25 Specimen Type ART Sample Site L Radial pH 7.10 L* Bicarbonate Actual 5.7 L Total CO2 6 Base Excess -24 L O2 Saturation 97 ABG pCO2 18.7 L* ABG pO2 125 H Aftab Test N/A O2 Delivery Device Room Air Vent Mode Not entered Crit Call To/Read Back Yes Blood Gas Notified Whom Dr Ferreira Blood Gas Notified Time 23:27:58 Imaging Radiology Impression Abdomen/Pelvis CT 02/18/25 15:06 IMPRESSION: 1. No hydronephrosis. 2. Possible cystitis. Additional nonspecific LEFT perinephric stranding could be reactive to the below or reflect pyelonephritis, unable to further evaluate in the absence of IV contrast. Correlate with urinalysis. 3. Abnormal appearance of the LEFT kidney very poorly delineated in the absence of IV contrast but with vaguely masslike appearance suspicious for neoplasm. Recommend clinical follow-up including correlation with recent tissue sampling. 4. 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 Recommend clinical/oncologic follow-up. 5. Additional description as above. Incidental Finding Alert: As above. Management of this incidental finding should follow the [employer] (ACR) Incidental Findings Committee recommendations. Reading Location: [id number] Chest X-Ray 02/19/25 10:45 IMPRESSION: Right jugular central venous catheter seen, with tip projecting over the right atrium. No pneumothorax is seen. Lungs are hypoinflated, but are apparently clear of acute disease. No pleural effusion is seen. The cardiomediastinal silhouette is stable. Reading Location: [facility]
--- NOTE | 2025-02-19 11:40 | PCM.OP.PRO2 ---
Bedside Procedural Bedside Procedure Information Date of Procedure: 02/19/25 Pre-Procedure Diagnosis: Renal failure Post-Procedure Diagnosis: Renal failure Procedure Performed:: Right IJ temporary dialysis catheter placement Procedure findings: Consent was obtained from daughter since the patient was confused. Right IJ visualized under ultrasound prior to the procedure, fairly compressible and collapsible indicating volume depletion status. Site was prepped with ChloraPrep. Under routine aseptic precautions, right IJ was visualized, compressible. Local anesthesia with lidocaine was obtained. Under ultrasound guidance, right IJ was cannulated on second attempt. Guidewire passed without any resistance. Location of wire confirmed within IJ under ultrasound. Tract dilated, serial dilators used. At 2 lm, 16 cm long, 12 Upper [place], curved tip dialysis catheter advanced without any resistance. Wire was withdrawn. Both ports clamped, both ports withdraw and flush freely. Sutures placed. Postprocedure chest x-ray was ordered. No obvious immediate complications. ICU nursing staff present bedside throughout.
[2025-02-19] MEDS: 0.9% Normal Saline 1,000 ML IV.SOLN. 1000 ML OPERA.SITE (11:43)
[2025-02-19] MEDS: PureFlow B 2K Dialysis Soln 1 BAG 6 BAG PF (11:43)
[2025-02-19] MEDS: Pantoprazole Sodium 40 MG in 0.9% Normal Saline (100mL MB+) 100 ML 330 MG IV (15:34)
[2025-02-19 15:59] LABS: Reflex Lactate? Y
[2025-02-19] MEDS: 0.9% Normal Saline (1000mL) 1,000 ML 150 ML IV (16:34)
--- NOTE | 2025-02-19 18:26 | EX.PCM.CON.G ---
HPI Consult Data Date of Consult: 02/19/25 HPI Narrative HPI Narrative: ROSALINO LEVY, is a 64-year-old female with a complex history (HFrEF, T2DM, CKD IIIb, known metastatic infiltrating poorly differentiated renal carcinoma) admitted on 02/18/2025 for altered mental status and hypoglycemia (BS in 40s). On admission, the patient was hypotensive and severely acidotic (Bicarb 7, K+ 7.1) due to ANTONIO on CKD, requiring emergent hemodialysis. GI was consulted following an episode of coffee-ground emesis and a hemoglobin drop from baseline. Family notes she had been lethargic with poor PO intake over the weekend. Of note, she was started on dual antiplatelet therapy (DAPT) in late January following a LAD stent at [facility].? Currently stable in ICU post-dialysis. Pertinent Labs (02/18):?Hgb: [Current Value] (2 g drop from prior), BUN: 66, Cr: 6.49, K: 7.1, Bicarb: 7. Physical Exam:?Abdomen soft, non-distended. No active hematemesis noted during exam. Imaging:?CT Abdomen/Pelvis (02/18): Left renal malignancy with retroperitoneal adenopathy; nonspecific perinephric stranding/possible cystitis.? [facility] Medical History Hypertension NSTEMI (non-ST elevated myocardial infarction) Heart failure with reduced left ventricular function Respiratory failure Septic shock Hyperlipidemia DM type 2 (diabetes mellitus, type 2) Anemia Wears glasses Post-menopausal Alcohol use Depression History of steroid therapy Arthritis Uses wheelchair Bladder disease Low iron Stroke/cerebrovascular accident Dietary restriction History of renal disease Chronic cough Smoker Shortness of breath on exertion History of pain when walking DM type 2 (diabetes mellitus, type 2) Amputation of one or more toes Peripheral arterial disease Gas gangrene Osteomyelitis Hyperlipidemia Home Medications ?Medication ?Instructions ?Recorded ?Last Taken ?Type aspirin 81 mg chewable tablet 81 mg PO DAILY@0800 Blood thinner 12/27/15 02/18/25 History ferrous sulfate 325 mg (65 mg 325 mg PO DAILY SUPPLEMENT 01/01/22 02/18/25 History iron) tablet bupropion HCl 150 mg 24 hr tablet, 150 mg PO DAILY pain 12/03/24 02/18/25 History extended release ezetimibe 10 mg tablet 10 mg PO DAILY cholesterol 12/03/24 02/18/25 History glipizide 2.5 mg tablet, extended 2.5 mg PO DAILY diabetes 12/03/24 02/18/25 History release 24 hr metformin 1,000 mg tablet 1,000 mg PO BID diabetes 12/03/24 02/18/25 History pioglitazone 30 mg tablet 30 mg PO DAILY diabetes 12/03/24 02/18/25 History amlodipine 10 mg tablet 10 mg PO DAILY htn #30 tabs 12/11/24 02/18/25 Rx carvedilol 3.125 mg tablet 3.125 mg PO BIDCM HTN #60 tabs 12/11/24 02/18/25 Rx sodium chloride 0.65 % nasal spray 1 spray intranasal BID PRN nasal 01/29/25 Unknown History aerosol (Saline Nasal) congestion atorvastatin 80 mg tablet 80 mg PO DAILY 02/18/25 02/17/25 History sacubitril 24 mg-valsartan 26 mg 1 tab PO BID 02/18/25 02/18/25 History tablet (Entresto) ticagrelor 90 mg tablet (Brilinta) 90 mg PO BID 02/18/25 02/18/25 History Allergy/AdvReac Type Severity Reaction Status Date / Time latex Allergy Rash Verified 02/18/25 13:08 Surgical History H/O biopsy of kidney Hx of eye surgery Hx of left cataract extraction Social History household members: none Smoking Status: Current every day smoker tobacco type: cigarettes substance use type: does not use ROS Constitutional Constitutional: Denies fatigue, fever(s), poor appetite, weight gain or weight loss Gastrointestinal Gastrointestinal: Denies belching, bloating, change in bowel habits, change in stool character, chewing difficulty, coffee ground emesis, constipation, cramping, diarrhea, dyspepsia, dysphagia, early satiety, excessive flatus, fecal incontinence, heartburn, hematemesis, hematochezia, hemorrhoids, loose stools, melena, nausea, odynophagia, rectal bleeding, tenesmus, vomiting or weight changes Physical Exam Const alert, oriented x3, no apparent distress and healthy appearing General Appearance: cooperative GI normal to inspection, nondistended, normoactive bowel sounds, soft to palpation, non-tender and non-distended Percussion: normal to percussion Rectal Exam: deferred Lab / Micro Data 02/19/25 06:22 02/19/25 06:22 Labs: Laboratory Results - last 24 hr 02/18/25 17:05: Troponin T Hi Sens 4Hr 64 H* 02/18/25 19:41: POC Glucose 270 H 02/18/25 21:35: POC Glucose 198 H 02/18/25 22:08: Sodium 136, Potassium 6.8 H*, Chloride 95 L, Carbon Dioxide 4.2 L*, Anion Gap 37 H, BUN 67 H, Creatinine 6.82 H, Estim Creat Clear Calc 7.42 L*, Est GFR (MDRD) Non-Af 6 L, BUN/Creatinine Ratio 9.8 L, Glucose 183 H, Calcium 10.5, b-Hydroxybutyric mmol/L 3.2 H 02/19/25 00:11: POC Glucose 146 H 02/19/25 01:11: POC Glucose 131 H 02/19/25 02:16: Sodium 138, Potassium 6.0 H*, Chloride 95 L, Carbon Dioxide 5.5 L*, Anion Gap 37 H, Phosphorus 8.9 H, Magnesium 2.0, POC Glucose 118 H 02/19/25 03:28: POC Glucose 106 02/19/25 04:22: POC Glucose 101 02/19/25 05:26: POC Glucose 88 02/19/25 06:19: POC Glucose 79 02/19/25 06:22: WBC 12.8 H, RBC 2.64 L, Hgb 7.9 L, Hct 25.0 L, MCV 94.7, MCH 29.9, MCHC 31.6 L, RDW Std Deviation 54.0 H, RDW Coeff of Nuno 15.4 H, Plt Count 234, MPV 9.9, Sodium 138 02/19/25 06:22: Sodium Cancelled, Potassium 6.4 H* 02/19/25 06:22: Potassium Cancelled, Chloride 96 L 02/19/25 06:22: Chloride Cancelled, Carbon Dioxide 8.4 L* 02/19/25 06:22: Carbon Dioxide Cancelled, Anion Gap 33 H 02/19/25 06:22: Anion Gap Cancelled, BUN 64 H, Creatinine 6.98 H, Estim Creat Clear Calc 7.27 L*, Est GFR (MDRD) Non-Af 6 L, BUN/Creatinine Ratio 9.2 L, Glucose 83, Calcium 9.9, Phosphorus 8.3 H, Magnesium 1.9 02/19/25 07:29: POC Glucose 72 L 02/19/25 09:50: POC Glucose 57 L 02/19/25 11:53: POC Glucose 86 02/19/25 11:55: Lactic Acid 10.7 H* 02/19/25 15:29: POC Glucose 92 Micro: Microbiology 02/19/25 06:50 Vomitus Gastric Occult Blood - Final Occult Blood Positive ABG Data ABG results: ABG 02/18/25 23:25 Specimen Type ART Sample Site L Radial pH 7.10 L* Bicarbonate Actual 5.7 L Total CO2 6 Base Excess -24 L O2 Saturation 97 ABG pCO2 18.7 L* ABG pO2 125 H Aftab Test N/A O2 Delivery Device Room Air Vent Mode Not entered Crit Call To/Read Back Yes Blood Gas Notified Whom Dr Ferreira Blood Gas Notified Time 23:27:58 Imaging Radiology Impression Chest X-Ray 02/19/25 10:45 IMPRESSION: Right jugular central venous catheter seen, with tip projecting over the right atrium. No pneumothorax is seen. Lungs are hypoinflated, but are apparently clear of acute disease. No pleural effusion is seen. The cardiomediastinal silhouette is stable. Reading Location: [place] [id number] Assessment & Plan Assessment/Plan (1) GI bleed: PLAN: This 64-year-old female presents with?acute upper gastrointestinal bleeding (UGIB), manifested by coffee-ground emesis and a 2 g/dL hemoglobin drop, in the setting of?multisystem organ failure. Suspected Upper GI Bleed:?Presenting with coffee-ground emesis and acute anemia. Etiology likely multifactorial: Uremic Gastropathy:?Significant uremia (BUN 66, Cr 6.49) increases risk of mucosal friability. Medication-Induced:?Recent initiation of DAPT (stent in late Jan) significantly elevates bleeding risk. Stress-Related Mucosal Disease:?Critical illness and severe metabolic acidosis. The patient?s coffee-ground emesis and acute anemia are highly concerning given her recent initiation of?dual antiplatelet therapy (DAPT)?following a LAD stent in late January. Her clinical picture is further complicated by: Severe Metabolic Derangement:?Hyperkalemia (7.1), profound metabolic acidosis (Bicarbonate 7), and anuric Acute Kidney Injury (ANTONIO) on CKD stage IIIb. Hemodynamic Instability:?Initial hypotension (BP 80s/40s) and bradycardia, likely exacerbated by hyperkalemia and potentially cardiogenic or septic components. Malignancy:?Known poorly differentiated renal cell carcinoma with retroperitoneal metastases. Recommendations Stabilization & Hemostasis: Initiate high-dose intravenous Proton Pump Inhibitor therapy (e.g., Pantoprazole 80mg bolus followed by 8mg/hr infusion). Clear liquids status until midnight then n.p.o. past midnight. Consider Octreotide infusion if there is any suspicion of portal hypertension, though DAPT-related peptic ulcer disease or gastritis is more likely. Anticoagulation Management: Urgent consultation with Cardiology regarding the safety of holding DAPT (Aspirin/Clopidogrel or similar), as she is less than 30 days post-LAD stenting and at high risk for stent thrombosis. Diagnostic Plan: Esophagogastroduodenoscopy (EGD):?Indicated for diagnosis and since the patient is hemodynamically stabilized and her metabolic acidosis/hyperkalemia are further addressed via emergent dialysis. Monitor serial hemoglobins. Supportive Care: Continue emergent renal replacement therapy for uremia and acidosis, which also improves platelet dysfunction associated with uremia. Transfuse Packed Red Blood Cells (PRBCs) to maintain Hemoglobin >7?8 g/dL, considering her recent CAD/multivessel disease. Portions of this note were generated using voice recognition software ([employer] Dictation). I have reviewed the contents and every effort has been made to ensure accuracy; however, inadvertent errors in grammar, spelling, punctuation, or word choice may occur, that were not noted before signing the document and should not alter the intended clinical meaning. Charges/Coding Visit Charges Inpatient E&M: 07014 Init Hosp L3
--- NOTE | 2025-02-19 22:31 | PCM.HOSP.N ---
Hospitalist Note Insulin drip and dextrose fluids discontinued earlier today. Pt having low fingerstick glucometer readings, 26-given D50, up to 108, now back down to 43. Started D5NS at 150ml/hr to reduce hypoglycemic episodes. Pt had a positive gastric occult, in conjunction with lower hgb, heparin SC for VTE stopped; placed order for SCDs.
[2025-02-19] MEDS: Dextrose 5%/0.9% NaCl 1,000 ML 150 ML IV (22:55)
[2025-02-20] VITALS (48 sets, daily range): BP systolic 94–136; BP diastolic 46–102; PULSE 79–95; RESP 15–24; TEMP 36.6–37.5; O2SAT 93–98; BMI 30.1; BMI 29.2; BMI 29.1
[2025-02-20] MEDS: Dextrose 5%/0.9% NaCl 1,000 ML 120 ML IV (05:36)
[2025-02-20 06:15] LABS: Hematocrit 21.1 % (37-47); Hemoglobin 6.8 g/dL (12.0-15.0); Immature Granulocytes Count 0.060 X10^3/uL (0.0-0.0); Mean Corp Hgb Conc 32.2 g/dL (32-36); Mean Corpuscular Volume 89.4 fL (81-99); Mean Platelet Vol. 9.3 fl (6.2-12.0); NRBC Flagged by Analyzer 0 % (0-5); POSITIVE DIFFERENTIAL YES; Platelet Count 149 K/mm3 (150-450); RBC Distribution Width CV 16.2 % (11.6-14.6); RBC Distribution Width SD 53.0 fl (35.1-43.9); Red Blood Count 2.36 M/mm3 (4.2-5.4); White Blood Count 12.3 K/mm3 (4.4-11.0)
[2025-02-20 06:45] LABS: Magnesium 1.6 mg/dL (1.5-2.2)
[2025-02-20 06:47] LABS: AST(SGOT) 33 U/L (<=31); Alanine Aminotransfer ALT/SGPT 12 U/L (<=34); Albumin, Serum 2.9 g/dL (3.4-4.8); Alkaline Phosphatase 56 U/L (35-104); Anion Gap 12 (5-15); BUN 35 mg/dL (4-19); BUN/Creat Ratio 9.3 RATIO (10-20); Calcium,Total 7.8 mg/dL (7.6-11.0); Carbon Dioxide 19.2 mmol/L (21.0-32.0); Chloride 101 mmol/L (98-108); Estimated Creatinine Clearance 13.70 ml/min (50-250); Globulin 2.2 g/dL (2.2-4.2); Glucose 69 mg/dL (70-99); Potassium 3.9 mmol/L (3.3-5.1)
[2025-02-20 08:01] LABS: Mucous, Urine 0 SEEN /hpf (<or=2+); Red Blood Cells-Urine 0 SEEN /hpf (0-5)
[2025-02-20] MEDS: Pantoprazole Sodium 40 MG in 0.9% Normal Saline (100mL MB+) 100 ML 330 MG IV (08:01)
[2025-02-20 08:14] LABS: Color, Urine Straw (Yellow); Glucose, Dipstick Normal (Normal); Ketone-Dipstick Negative (Negative); Leukocyte Esterase-Dipstick 500 /ul (Negative); Nitrite-Dipstick Negative (Negative); Occult Blood-Urine 250 /ul (Negative); Protein-Dipstick 100 mg/dl (Negative); Specific Gravity, Urine 1.010 (1.002-1.030); Urine Bilirubin Dipstick Negative (Negative)
--- NOTE | 2025-02-20 08:14 | PN.HOSP_ITS ---
Reason for Visit Chief Complaint: Altered mental status Objective Data Objective Data Vital Signs: Vital Signs Temp Pulse Resp BP Pulse Ox O2 Del Method 99.5 F H 84 16 100/49 L 93 Room Air 02/20/25 06:00 02/20/25 06:00 02/20/25 06:00 02/20/25 06:00 02/20/25 08:00 02/20/25 08:00 Oxygen Delivery Method Room Air Weight: 163 lb 9.328 oz Body Mass Index (BMI) 30.1 Intake & Output: Intake and Output for Last 24 Hours 02/18/25 02/19/25 02/20/25 23:59 23:59 23:59 Intake Total 3540 / 3810 5270.60 / 5270.60 1693.33 / 1693.33 Output Total 0 / 0 150 / 150 250 / 250 Balance 3540 / 3810 5120.60 / 5120.60 1443.33 / 1443.33 Lab / Micro Data 02/20/25 06:07 02/20/25 06:07 Labs: Laboratory Results - last 24 hr 02/19/25 09:50: POC Glucose 57 L 02/19/25 11:53: POC Glucose 86 02/19/25 11:55: Lactic Acid 10.7 H* 02/19/25 15:29: POC Glucose 92 02/19/25 19:46: POC Glucose 26 L* 02/19/25 20:21: POC Glucose 108 H 02/19/25 21:57: POC Glucose 43 L* 02/19/25 22:33: POC Glucose 115 H 02/20/25 01:10: POC Glucose 61 L 02/20/25 01:36: POC Glucose 100 02/20/25 02:46: POC Glucose 58 L 02/20/25 03:14: POC Glucose 79 02/20/25 04:23: POC Glucose 56 L 02/20/25 05:58: POC Glucose 64 L 02/20/25 06:07: WBC 12.3 H, RBC 2.36 L, Hgb 6.8 L, Hct 21.1 L, MCV 89.4 D, MCH 28.8, MCHC 32.2, RDW Std Deviation 53.0 H, RDW Coeff of Nuno 16.2 H, Plt Count 149 L, MPV 9.3, Immature Gran % (Auto) 0.500, Neut % (Auto) 87.0 H, Lymph % (Auto) 2.6 L, [place] % (Auto) 9.8, Eos % (Auto) 0.0, Baso % (Auto) 0.1, Absolute Neuts (auto) 10.7 H, Absolute Lymphs (auto) 0.32 L, Nucleated RBC % 0, Sodium 132 L, Potassium 3.9, Chloride 101, Carbon Dioxide 19.2 L, Anion Gap 12, BUN 35 H, Creatinine 3.81 H, Estim Creat Clear Calc 13.70 L, Est GFR (MDRD) Non-Af 12 L , BUN/Creatinine Ratio 9.3 L, Glucose 69 L, Calcium 7.8, Phosphorus 3.4, Magnesium 1.6, Total Bilirubin 0.32, AST 33 H, ALT 12, Alkaline Phosphatase 56, Total Protein 5.1 L, Albumin 2.9 L, Globulin 2.2, Albumin/Globulin Ratio 1.3 02/20/25 06:51: POC Glucose 116 H 02/20/25 07:36: Crossmatch See Detail 02/20/25 07:39: POC Glucose 113 H Micro: Microbiology 02/19/25 06:50 Vomitus Gastric Occult Blood - Final Occult Blood Positive Radiography Diagnostic Testing: Radiology Impression Chest X-Ray 02/19/25 10:45 IMPRESSION: Right jugular central venous catheter seen, with tip projecting over the right atrium. No pneumothorax is seen. Lungs are hypoinflated, but are apparently clear of acute disease. No pleural effusion is seen. The cardiomediastinal silhouette is stable. Reading Location: [place] [id number] Physical Exam Narrative Seen and examined. Patient mildly confused but answers questions in short 1-2 words, telegraphic speech and echolalia. Had dialysis yesterday. Hemoglobin Physical General: Awake oriented x3, Cooperative intermittent confusion HEENT: Atraumatic, PERRLA, EOMI, Normocephalic. Oral: No Gingival or Mucosal Lesions/ Ulcerations Neck: Supple, No JVD, Negative Carotid Bruits Chest wall/Lungs: Air entry diminished in bilateral lung bases. No crepitation/rhonchi Cardiovascular: Systolic murmur over right second ICS. Sinus rhythm. Abdomen: Bowel Sounds Present, Soft, Non Tender, Non-Distended : On dialysis. No urine output in Robles catheter no renal angle tenderness. No suprapubic tenderness. Extremities: Mild pedal edema, Capillary Refill Less than 3 Seconds Skin: No rashes, No breakdown Musculoskeletal: No Tenderness to Palpation of Joints or Extremities Neurological: Cranial nerves II-XII grossly intact, DTR 2+/4. No acute focal neurological deficit. Psych/Mental Status: Answers questions slowly. Flat affect. Assessment & Plan Assessment/Plan (1) Acute renal failure: PLAN: Plan Patient is a 64-year-old female who presented to [facility] ED on 02/18/2025 with altered mental status. For last couple days she was having loose bowel movement and urine yellow color. She is confused but answers month, and her age correctly and even the day of the week. She said her urine amount was okay but here she is anuric. She said she had kidney biopsy in the past 1. Acute metabolic encephalopathy ? Admit under inpatient status to ICU. Biofuels Operations Manager consulted. Patient alert and oriented to person in the ED but not place or time. Suspect multifactorial due to hypoglycemia on arrival to the ED, acute renal failure with uremia, and possible acute UTI. Treatment as below. Avoid sedating medications as able. 02/19: Encephalopathy is better and answering questions appropriately but seems to still delayed reaction. 02/20: Still encephalopathic. Telegraphic speech, echolalia. Unclear about her understanding. 2. ANTONIO on CKD stage IIIb with metabolic acidosis and hyperkalemia and anuria ? Nephrology consulted. Creatinine 6.49, BUN 66, bicarb 7, potassium 7.1 in the ED. No hyperkalemia EKG changes noted. Baseline creatinine around 1.5. Suspected prerenal ANTONIO possibly secondary to overdiuresis from home heart failure regimen versus due to GI losses and poor p.o. intake in setting of euglycemic DKA. 02/19: Initially treated with bicarb drip but resulted into worsening bicarb from 7 to 4 mEq therefore changed to D5 half NS and on insulin drip. No urine output. Nephrology is consulted. Hyperkalemia with potassium 6.4. Discussed with the sterile processing tech. Right IJ temporary dialysis catheter was inserted by sterile processing tech. Plan for dialysis today. 02/20: Patient was dialyzed yesterday. BUN/creatinine 35/3.81. Hyponatremia. Bicarb 19 3. Type 2 diabetes mellitus with concern for euglycemic DKA with hypoglycemia on presentation ? Home diabetes regimen listed as pioglitazone, metformin and glipizide. Patient was initially hypoglycemic with blood sugar of 15 on arrival to the ED. Severe anion gap metabolic acidosis Patient being managed on DKA protocol. Glucose 83. Bicarb 8.3, anion gap 33. 02/20: Patient is running hypoglycemia glucose 56, 64 therefore started on D10. Patient also on D5 NS 4. Concern for acute UTI Patient complained of intermittent burning micturition. No urine output urine for testing. CT abdomen pelvis on admit with concern for cystitis and possible left-sided pyelonephritis. Most recent urine culture in late November grew pansensitive E. coli. Started empirically on IV ceftriaxone 5. CAD with recent stenting, chronic HFrEF, hypertension, hyperlipidemia, history of PAD ? Follows with cardiology. Had drug-eluting stent placement x 1 to the LAD done at about 2 weeks prior to this admission. Last echo on 12/04 showed EF 45%, mild to moderate segmental systolic dysfunction, stage I diastolic dysfunction, no other concerning findings. Hypotensive to the 80s over 40s on admit. Giving IV fluids with insulin drip as above. Will hold home Entresto, Coreg and amlodipine. Okay to continue home aspirin, Brilinta, Zetia and statin. 12/20: Continue aspirin and Brilinta rest as mentioned above 6. Chronic iron deficiency anemia ? Hemoglobin 9.8 on admit, 02/19: Hemoglobin dropped to 7.9. Monitor. 02/20: Hemoglobin dropped to 6.8. Suspected upper GI bleed. GI was consulted yesterday. Plan for EGD today NPO. 7. Anxiety/depression ? Continue home bupropion. DVT prophylaxis: Heparin subcu 02/20 bilateral SCDs. Heparin subcu discontinued CODE STATUS: Full code, verified Total time of the visit including total time spent in counseling or coordination of care, (more than 50% of the total time, spent in obtaining medical information from nurses and other ancillary care providers ,explaining to the patient about labs, imaging, diagnosis and management of active complex medical conditions), discussion with sterile processing tech and intensive, review of labs and imaging is 40 minutes. Charges/Coding Visit Charges Inpatient E&M: 76256 [facility] Hosp L3
[2025-02-20 08:34] LABS: Squamous Epithelial Cells - UA 0-5 SEEN /hpf (5-10)
[2025-02-20] MEDS: PureFlow B 3K Dialysis Soln 1 BAG 6 BAG PF (08:51)
[2025-02-20] MEDS: 0.9% Normal Saline 1,000 ML IV.SOLN. 1000 ML OPERA.SITE (08:51)
[2025-02-20] MEDS: 0.9% Saline Lock 10 ML Syringe IV ×2 (08:52→19:25)
--- NOTE | 2025-02-20 10:31 | PCM.PN.TICU ---
Objective Data Objective Data Vital Signs: Vital Signs Last response Temperature 36.8 C 02/20/25 10:15 Temperature Source Core 02/20/25 10:15 Pulse Rate 89 02/20/25 10:15 Pulse Strength Weak (1+) 02/19/25 21:33 Respiratory Rate 22 H 02/20/25 10:15 Respiratory Effort Non-Labored 02/20/25 08:15 Respiratory Depth Normal 02/20/25 04:00 Respiratory Pattern Normal 02/20/25 04:00 Blood Pressure 127/59 H 02/20/25 10:15 Blood Pressure Mean 81 02/20/25 10:15 Blood Pressure Source Monitor 02/20/25 10:15 Blood Pressure Position Semi-Fowlers 02/20/25 10:15 Blood Pressure Location Right Arm 02/20/25 10:15 Pulse Ox 97 02/20/25 10:15 Oxygen Delivery Method Room Air 02/20/25 10:15 I&O: I&O Last 24 Hours 02/19/25 02/19/25 02/20/25 11:59 23:59 11:59 Intake Total 2323.10 / 5270.60 2947.5 / 5270.60 1843.33 / 1843.33 Output Total 150 / 150 0 / 150 250 / 250 Balance 2173.10 / 5120.60 2947.5 / 5120.60 1593.33 / 1593.33 I&O: Total Stay 02/18/25 12:57 thru 02/20/25 10:00 Intake Total 41804.93 Output Total 400 Balance 96676.93 Current Meds Ordered / Administered: Current meds ordered / Administered Generic Name Dose Route Start Last Admin Trade Name Freq PRN Reason Stop Dose Admin Acetaminophen 650 mg 02/18/25 16:18 Acetaminophen 325 Mg Tablet PO Q6H PRN PRN Pain 1-10 Or Fever>100.7 Aspirin 81 mg 02/19/25 08:00 02/20/25 07:52 Aspirin 81 Mg Tab.Chew PO Not Given DAILY@0800 [facility] Atorvastatin Calcium 80 mg 02/19/25 10:00 02/20/25 07:53 Atorvastatin Calcium 80 Mg Tablet PO Not Given DAILY [facility] Bupropion HCl 150 mg 02/19/25 10:00 02/20/25 07:53 Bupropion (Xl) 150 Mg Tablet.Xl PO Not Given DAILY [facility] Ezetimibe 10 mg 02/19/25 10:00 02/20/25 07:53 Ezetimibe 10 Mg Tablet PO Not Given DAILY [facility] Ferrous Sulfate 325 mg 02/19/25 12:00 02/19/25 10:51 Ferrous Sulfate 325 Mg Tablet PO 325 mg DAILY@1200 [facility] Administration Glucagon 1 mg 02/18/25 16:18 Glucagon 1 Mg/Ml Syringe IM X1 PRN Hypoglycemia Protocol Glucagon 1 mg 02/18/25 23:02 Glucagon 1 Mg/Ml Syringe IM X1 PRN Hypoglycemia Protocol Hemodialysis Solution 6 bag 02/20/25 08:45 02/20/25 08:51 Pureflow B 3k Dialysis Soln 1 Bag PF 02/20/25 20:43 6 bag UD [facility] Administration Protocol Heparin Sodium (Porcine) 1,000 - 3,000 units 02/20/25 08:41 Heparin 10,000 Units/10 Ml Vial IV 02/20/25 20:41 X1 PRN HD catheter closing Dextrose 250 mls @ 0 mls/hr 02/18/25 16:18 02/20/25 03:00 Dextrose 10%-Water IV Infused .Q0M PRN Infusion HYPOGLYCEMIA Protocol As Directed Dextrose 250 mls @ 0 mls/hr 02/18/25 23:02 02/20/25 06:53 Dextrose 10%-Water IV Infused .Q0M PRN Infusion HYPOGLYCEMIA Protocol As Directed Ceftriaxone Sodium 1 gm in 50 mls @ 100 mls/hr 02/19/25 12:05 02/20/25 08:41 Rocephin IV Infused Q24 [facility] Infusion Pantoprazole Sodium 40 mg/ 100 mls @ 330 mls/hr 02/19/25 12:25 02/20/25 08:40 Sodium Chloride IV Infused Q24 [facility] Infusion Dextrose 250 mls @ 55 mls/hr 02/20/25 03:15 02/20/25 08:05 Dextrose 10%-Water IV 40 mls/hr .Q4H33M [facility] Administration Sodium Chloride 500 mls @ 15 mls/hr 02/20/25 09:34 IV PRN PRN Blood Transfusion Insulin Human Lispro 0 unit 02/18/25 16:18 02/20/25 06:14 Insulin Lispro 100 Unit/Ml Insuln.Pen SC Not Given ACHS [facility] Protocol Melatonin 3 mg 02/18/25 16:18 Melatonin 3 Mg Tablet PO QHS PRN PRN INSOMNIA Ondansetron HCl 4 mg 02/18/25 16:18 02/19/25 05:31 Ondansetron 4 Mg/2 Ml Vial IV 4 mg Q8H PRN PRN Administration NAUSEA/VOMITING Sodium Chloride 1 spray 02/18/25 16:18 Sodium Chloride 0.65% 1 Meridian Meridian.Btl NASAL BID PRN NASAL CONGESTION Sodium Chloride 10 - 40 ml 02/18/25 16:45 02/20/25 08:52 0.9% Saline Lock 10 Ml Syringe IV 40 ml UD PRN Administration SALINE FLUSH Sodium Chloride 1,000 ml 02/20/25 08:45 02/20/25 08:51 0.9% Normal Saline 1,000 Ml Iv.Soln. OPERA.SITE 02/20/25 20:41 1,000 ml X1 [facility] Administration Sodium Chloride 200 ml 02/20/25 08:41 0.9% Normal Saline 1,000 Ml Iv.Soln. IV 02/20/25 20:41 X1 PRN to maintain SBP >90mmHg during Dialysis Ticagrelor 90 mg 02/18/25 22:00 02/20/25 07:53 Ticagrelor 90 Mg Tablet PO Not Given BID [facility] Lab / Micro Data 02/20/25 06:07 02/20/25 06:07 Labs: Laboratory Results - last 24 hr 02/19/25 11:53: POC Glucose 86 02/19/25 11:55: Lactic Acid 10.7 H* 02/19/25 15:29: POC Glucose 92 02/19/25 19:46: POC Glucose 26 L* 02/19/25 20:21: POC Glucose 108 H 02/19/25 21:57: POC Glucose 43 L* 02/19/25 22:33: POC Glucose 115 H 02/20/25 01:10: POC Glucose 61 L 02/20/25 01:36: POC Glucose 100 02/20/25 02:46: POC Glucose 58 L 02/20/25 03:14: POC Glucose 79 02/20/25 04:23: POC Glucose 56 L 02/20/25 05:58: POC Glucose 64 L 02/20/25 06:07: WBC 12.3 H, RBC 2.36 L, Hgb 6.8 L, Hct 21.1 L, MCV 89.4 D, MCH 28.8, MCHC 32.2, RDW Std Deviation 53.0 H, RDW Coeff of Nuno 16.2 H, Plt Count 149 L, MPV 9.3, Immature Gran % (Auto) 0.500, Neut % (Auto) 87.0 H, Lymph % (Auto) 2.6 L, [place] % (Auto) 9.8, Eos % (Auto) 0.0, Baso % (Auto) 0.1, Absolute Neuts (auto) 10.7 H, Absolute Lymphs (auto) 0.32 L, Nucleated RBC % 0, Sodium 132 L, Potassium 3.9, Chloride 101, Carbon Dioxide 19.2 L, Anion Gap 12, BUN 35 H, Creatinine 3.81 H, Estim Creat Clear Calc 13.70 L, Est GFR (MDRD) Non-Af 12 L, BUN/Creatinine Ratio 9.3 L, Glucose 69 L, Calcium 7.8, Phosphorus 3.4, Magnesium 1.6, Total Bilirubin 0.32, AST 33 H, ALT 12, Alkaline Phosphatase 56, Total Protein 5.1 L, Albumin 2.9 L, Globulin 2.2, Albumin/Globulin Ratio 1.3 02/20/25 06:51: POC Glucose 116 H 02/20/25 07:36: Blood Type O POSITIVE, Antibody Screen NEGATIVE, Crossmatch See Detail 02/20/25 07:39: POC Glucose 113 H 02/20/25 07:45: Urine Color Straw, Urine Clarity Cloudy, Urine pH 6.0, Ur Specific [place] 1.010, Urine Protein 100 H, Urine Glucose (UA) Normal, Urine Ketones Negative, Urine Occult Blood 250 H, Urine Nitrite Negative, Urine Bilirubin Negative, Urine Urobilinogen Normal, Ur Leukocyte Esterase 500 H, Urine RBC 0 SEEN, Urine WBC >100 SEEN, Ur Squamous Epith Cells 0-5 SEEN, Urine Bacteria 2+, Urine Mucus 0 SEEN Micro: Microbiology 02/19/25 06:50 Vomitus Gastric Occult Blood - Final Occult Blood Positive Imaging Radiology Impression Chest X-Ray 02/19/25 10:45 IMPRESSION: Right jugular central venous catheter seen, with tip projecting over the right atrium. No pneumothorax is seen. Lungs are hypoinflated, but are apparently clear of acute disease. No pleural effusion is seen. The cardiomediastinal silhouette is stable. Reading Location: [place] [id number] Assessment and Plan . Assessment and plan: 1. ANTONIO: on baseline CKD(cr 1.48 last month). Did get contrast with recent LHC last week. Was on metformin as well. 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 2. Metabolic Acidosis: 2/2 ANTONIO. 2/2 elevated lactate(on metformin). HCO3 stable. Getting HD 3. Hypoglycemia: ? 2/2 sulfonylurease in setting of ANTONIO. Stop D5NS. Increase D10 to 55 per hour. Oral diet post EGD 4. Anemia: Slow decrease during admit. + hemooccult for distinct sign of GI bleeding. Getting on unit today. EGD later today. 5. FEN: oral diet 6. CAD: s/p PCI last week. Continue DAPT 7. AMS: metabolic encephalopathy. Stable today. 8. PX: SCDs Mikey Nielsen MD Critical Care Time: 50 minutes The entirety of this encounter was done via Telemedicine e Physical Exam Narrative GEN: NAD, awake and following HEENT MMM o/p:clear, Pupils:= NECK supple, No JVD CV:RRR CHEST: CTA B, Symmetric expansion ABD: soft, NT, +bs EXT: No c/e/c SKIN : No rashes REDDY NF Subjective Subjective chart reviewed. 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
--- NOTE | 2025-02-20 14:11 | PN.RENAL_ITS ---
Subjective Subjective She is alert, awake. Does not offer any complaints. Urine output actually has picked up. Objective Data Objective Data Vital Signs: Vital Signs Temp Pulse Resp BP Pulse Ox O2 Del Method 99.1 F 94 19 H 124/56 H 95 Room Air 02/20/25 13:00 02/20/25 13:00 02/20/25 13:00 02/20/25 13:00 02/20/25 13:00 02/20/25 13:00 Oxygen Delivery Method Room Air Weight: 72.2 kg Body Mass Index (BMI) 29.2 Intake & Output: Intake and Output for Last 24 Hours 02/18/25 02/19/25 02/20/25 23:59 23:59 23:59 Intake Total 3540 / 3810 5270.60 / 5270.60 2935.33 / 2935.33 Output Total 0 / 0 150 / 150 2300 / 2300 Balance 3540 / 3810 5120.60 / 5120.60 635.33 / 635.33 Lab / Micro Data 02/20/25 06:07 02/20/25 06:07 Labs: Laboratory Results - last 24 hr 02/19/25 15:29: POC Glucose 92 02/19/25 19:46: POC Glucose 26 L* 02/19/25 20:21: POC Glucose 108 H 02/19/25 21:57: POC Glucose 43 L* 02/19/25 22:33: POC Glucose 115 H 02/20/25 01:10: POC Glucose 61 L 02/20/25 01:36: POC Glucose 100 02/20/25 02:46: POC Glucose 58 L 02/20/25 03:14: POC Glucose 79 02/20/25 04:23: POC Glucose 56 L 02/20/25 05:58: POC Glucose 64 L 02/20/25 06:07: WBC 12.3 H, RBC 2.36 L, Hgb 6.8 L, Hct 21.1 L, MCV 89.4 D, MCH 28.8, MCHC 32.2, RDW Std Deviation 53.0 H, RDW Coeff of Nuno 16.2 H, Plt Count 149 L, MPV 9.3, Immature Gran % (Auto) 0.500, Neut % (Auto) 87.0 H, Lymph % (Auto) 2.6 L, [place] % (Auto) 9.8, Eos % (Auto) 0.0, Baso % (Auto) 0.1, Absolute Neuts (auto) 10.7 H, Absolute Lymphs (auto) 0.32 L, Nucleated RBC % 0, Sodium 132 L, Potassium 3.9, Chloride 101, Carbon Dioxide 19.2 L, Anion Gap 12, BUN 35 H, Creatinine 3.81 H, Estim Creat Clear Calc 13.70 L, Est GFR (MDRD) Non-Af 12 L , BUN/Creatinine Ratio 9.3 L, Glucose 69 L, Calcium 7.8, Phosphorus 3.4, Magnesium 1.6, Total Bilirubin 0.32, AST 33 H, ALT 12, Alkaline Phosphatase 56, Total Protein 5.1 L, Albumin 2.9 L, Globulin 2.2, Albumin/Globulin Ratio 1.3 02/20/25 06:51: POC Glucose 116 H 02/20/25 07:36: Blood Type O POSITIVE, Antibody Screen NEGATIVE, Crossmatch See Detail 02/20/25 07:39: POC Glucose 113 H 02/20/25 07:45: Urine Color Straw, Urine Clarity Cloudy, Urine pH 6.0, Ur Specific [place] 1.010, Urine Protein 100 H, Urine Glucose (UA) Normal, Urine Ketones Negative, Urine Occult Blood 250 H, Urine Nitrite Negative, Urine Bilirubin Negative, Urine Urobilinogen Normal, Ur Leukocyte Esterase 500 H, Urine RBC 0 SEEN, Urine WBC >100 SEEN, Ur Squamous Epith Cells 0-5 SEEN, Urine Bacteria 2+, Urine Mucus 0 SEEN 02/20/25 10:15: POC Glucose 109 H 02/20/25 12:45: POC Glucose 132 H Micro: Microbiology 02/19/25 06:50 Vomitus Gastric Occult Blood - Final Occult Blood Positive Physical Exam Narrative no obvious distress no pallor no icterus no JVD s1s2 no murmurs lungs clear abdomen soft no organomegaly no edema no cyanosis varner + Assessment & Plan Assessment/Plan (1) Acute renal failure: PLAN: Baseline creatinine is around 1.5. As of 01/29/2025, her creatinine was close to baseline. She had coronary angiogram around that time. Came in with acute renal failure, creatinine of more than 5, anuria. CT abdomen without any hydronephrosis. Severe acidosis, elevated ketoacidosis, lactic acid level pending. Suspected euglycemic DKA. Metformin induced lactic acidosis being ruled out. As per previous records, she was on SGLT2 inhibitor, this was not on preadmission medication list at this time, not sure if she was actually taking it. Either way in view of severe acidosis, hyperkalemia she will need renal replacement therapy at least on a temporary basis. Patient could not consent, spoke to daughter at bedside. Explained the urgency of situation. She is agreeable for dialysis today. Acidosis, elevated anion gap, either euglycemic DKA from previous use of SGLT2 inhibitor, metformin induced lactic acidosis need to be ruled out. Has been on bicarbonate drip, will plan for dialysis today Hyperkalemia. Predominantly related to acidosis and renal failure. Should improve with dialysis on 2K bath Renal cell carcinoma. Poorly differentiated, squamous type it appears. Yet to start any treatments. She saw urology here and subsequently went to [facility] as per daughter. They would like to get all care locally. Planning to see urology and oncology here locally. Once medically stable, will need urology and oncology consults 02/20/2025. Yesterday lactate level came back at 10. With dialysis, significant improvement, bicarbonate is 19 today. Potassium 3.9. Urine output actually has picked up this morning. Will plan for 1 more session of dialysis today, seen on dialysis. See orders/flowsheets. Given improvement in urine output, we will just monitor renal function after today. Discussed with staff bedside (2) Hyperkalemia:
--- NOTE | 2025-02-20 14:27 | CT_ITS ---
PROCEDURE: STROKE BRAIN/HEAD WITHOUT CONT 02/20/2025 REASON FOR EXAM: AMS TECHNIQUE: Procedure Code: CTBR.ST Modality: CT Procedure: STROKE BRAIN/HEAD WITHOUT CONT Coronal and Sagittal reconstruction series were provided. One or more dose reduction techniques were used (e.g., Automated exposure control, adjustment of the mA and/or kV according to patient size, use of iterative reconstruction technique. RADIATION DOSE SUMMARY: CTDlvol: 44.99 mGy DLP: 820.85 mGycm COMPARISON: CT head December 03, 2024. FINDINGS: Brain: No acute territorial infarction. No acute intracranial hemorrhage. No mass-effect or midline shift. Diffuse white matter hypodensities which are nonspecific but likely due to chronic small-vessel ischemia. Parenchymal volume loss consistent with brain atrophy. No ventriculomegaly. The orbits are unremarkable. The craniocervical junction is unremarkable. CSF Spaces: Moderate generalized cerebral atrophy Sinuses/Mastoids: Clear. Bones: No acute bony abnormalities. CT/STROKE Brain/Head without Cont IMPRESSION: No acute intracranial abnormalities. Reading Location: [facility]
--- NOTE | 2025-02-20 15:10 | SUR.PREOP ---
Lactated ringers to be used during the EGD only and patient has multiple IV access so rocephin and LR will not be used together.
[2025-02-20] MEDS: Lactated Ringers 1,000 ML 15 ML IV (15:11)
--- NOTE | 2025-02-20 15:57 | PRE.ANES_ITS ---
ASA Classification* ASA Classification ASA Classification: 3 and E Assessment & Plan Anesthesia* Anesthesia Assessment Anesthesia Assessment: Discussed sedation and/or anesthesia options, risks, benefits, and alternatives with patient/parents/legal guardian/POA. Questions invited. The patient/parents/legal guardian/POA seems to understand and agrees to proceed with anesthesia plan. Reviewed the physical assessment, medical history, allergy history and patient home medications list prior to surgery/procedure/anesthetic and documented any changes. Performed airway and anesthesia risk assessments. Anesthesia Type Anesthesia Type: MAC History Source History Obtained from:: Patient and Chart Anesthesia Focused Assessment* Temperature: 99.2 F Pulse Rate: 88 Blood Pressure: 127/55 Respiratory Rate: 20 Pulse Ox: 96 Oxygen Delivery Method: Room Air Airway Assessment Mouth opens: >3 cm Mallampati Score: IV Teeth Condition: Missing (Patient is edentulous.) Neck Range of motion (ROM): Limited ROM (Severe Restriction) Labs Anesthesia Preop lab: CBC WBC, (4.4-11.0) 12.3 K/mm3 H Today, 06:07 RBC, (4.2-5.4) 2.36 M/mm3 L Today, 06:07 Hgb, (12.0-15.0) 6.8 g/dL L Today, 06:07 Hct, (37-47) 21.1 % L Today, 06:07 Plt Count, (150-450) 149 K/mm3 L Today, 06:07 CHEMISTRY Potassium, (3.3-5.1) 3.9 mmol/L Today, 06:07 Sodium, (133-145) 132 mmol/L L Today, 06:07 Magnesium, (1.5-2.2) 1.6 mg/dL Today, 06:07 Phosphorus, (2.7-4.5) 3.4 mg/dL Today, 06:07 BUN, (4-19) 35 mg/dL H Today, 06:07 Creatinine, (0.70-1.20) 3.81 mg/dL H Today, 06:07 Glucose, (70-99) 69 mg/dL L Today, 06:07 POC Glucose, (74-106) 141 mg/dL H Today, 14:06 TSH, (0.358-3.74) 1.07 uIU/mL 01/05/19, 10:03 COAG PT, (11.7-14.9) 14.1 SECONDS 01/09/25, 07:49 Pre-Assessment Diagnosis/Proposed Procedure Planned Operative Procedure(s): EGD Anesthesia History 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 When Was Last Pacemaker Check QUESTION #4 FULL TEXT: You/Your Family Experience fever (hyperthermia) with Anesthesia Last Oral Intake Last Oral intake: Last Oral Intake NPO since No Meds taken in AM with sips of water? 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 Has anyone observed you stop breathing during sleep? STOP Results Positive 02/18/25 16:36 QUESTION #5 FULL TEXT : Do you snore loudly (louder than talking or can be heard through closed doors)? 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 Specify any problems Hx of Preganancy in last 3 N/A 02/18/25 16:36 Months Nurse Filling Out [facility] 02/18/25 16:36 & Questions: Date: 02/18/25 02/18/25 16:36 Time: 16:43 02/18/25 16:36 Patient unable to answer at this time (ie. 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 made shoe unit worker: /Reproductive Hx- machine made shoe unit worker Hx Now Gestational Age (in weeks): EDC: Hx Hx Para Hx Section SAB No 01/01/22 08:20 Does the father of the baby or his family experience fever w Father of the baby Malignant Hypertension history comment Active Medications Active Medications: Current Medications Generic Name Dose Route Start Last Admin Trade Name Freq PRN Reason Stop Dose Admin Acetaminophen 650 mg 02/18/25 16:18 Acetaminophen 325 Mg Tablet PO Q6H PRN PRN Pain 1-10 Or Fever>100.7 Aspirin 81 mg 02/19/25 08:00 02/20/25 07:52 Aspirin 81 Mg Tab.Chew PO Not Given DAILY@0800 [facility] Atorvastatin Calcium 80 mg 02/19/25 10:00 02/20/25 07:53 Atorvastatin Calcium 80 Mg Tablet PO Not Given DAILY [facility] Bupropion HCl 150 mg 02/19/25 10:00 02/20/25 07:53 Bupropion (Xl) 150 Mg Tablet.Xl PO Not Given DAILY [facility] Ezetimibe 10 mg 02/19/25 10:00 02/20/25 07:53 Ezetimibe 10 Mg Tablet PO Not Given DAILY [facility] Ferrous Sulfate 325 mg 02/19/25 12:00 02/20/25 11:43 Ferrous Sulfate 325 Mg Tablet PO Not Given DAILY@1200 [facility] Glucagon 1 mg 02/18/25 16:18 Glucagon 1 Mg/Ml Syringe IM X1 PRN Hypoglycemia Protocol Glucagon 1 mg 02/18/25 23:02 Glucagon 1 Mg/Ml Syringe IM X1 PRN Hypoglycemia Protocol Hemodialysis Solution 6 bag 02/20/25 08:45 02/20/25 08:51 Pureflow B 3k Dialysis Soln 1 Bag PF 02/20/25 20:43 6 bag UD [facility] Administration Protocol Heparin Sodium (Porcine) 1,000 - 3,000 units 02/20/25 08:41 02/20/25 12:07 Heparin 10,000 Units/10 Ml Vial IV 02/20/25 20:41 1,300 units X1 PRN Administration HD catheter closing Dextrose 250 mls @ 0 mls/hr 02/18/25 16:18 02/20/25 03:00 Dextrose 10%-Water IV Infused .Q0M PRN Infusion HYPOGLYCEMIA Protocol As Directed Dextrose 250 mls @ 0 mls/hr 02/18/25 23:02 02/20/25 06:53 Dextrose 10%-Water IV Infused .Q0M PRN Infusion HYPOGLYCEMIA Protocol As Directed Ceftriaxone Sodium 1 gm in 50 mls @ 100 mls/hr 02/19/25 12:05 02/20/25 08:41 Rocephin IV Infused Q24 [facility] Infusion Pantoprazole Sodium 40 mg/ 100 mls @ 330 mls/hr 02/19/25 12:25 02/20/25 08:40 Sodium Chloride IV Infused Q24 [facility] Infusion Dextrose 250 mls @ 55 mls/hr 02/20/25 03:15 02/20/25 14:14 Dextrose 10%-Water IV 55 mls/hr .Q4H33M [facility] Administration Sodium Chloride 500 mls @ 15 mls/hr 02/20/25 09:34 IV PRN PRN Blood Transfusion Lactated Ringer's 1,000 mls @ 15 mls/hr 02/20/25 15:15 02/20/25 15:11 IV 15 mls/hr .Q48H [facility] Administration Insulin Human Lispro 0 unit 02/18/25 16:18 02/20/25 15:31 Insulin Lispro 100 Unit/Ml Insuln.Pen SC Not Given ACHS [facility] Protocol Melatonin 3 mg 02/18/25 16:18 Melatonin 3 Mg Tablet PO QHS PRN PRN INSOMNIA Ondansetron HCl 4 mg 02/18/25 16:18 02/19/25 05:31 Ondansetron 4 Mg/2 Ml Vial IV 4 mg Q8H PRN PRN Administration NAUSEA/VOMITING Sodium Chloride 1 spray 02/18/25 16:18 Sodium Chloride 0.65% 1 [place].Btl NASAL BID PRN NASAL CONGESTION Sodium Chloride 10 - 40 ml 02/18/25 16:45 02/20/25 08:52 0.9% Saline Lock 10 Ml Syringe IV 40 ml UD PRN Administration SALINE FLUSH Sodium Chloride 1,000 ml 02/20/25 08:45 02/20/25 08:51 0.9% Normal Saline 1,000 Ml Iv.Soln. OPERA.SITE 02/20/25 20:41 1,000 ml X1 [facility] Administration Sodium Chloride 200 ml 02/20/25 08:41 0.9% Normal Saline 1,000 Ml Iv.Soln. IV 02/20/25 20:41 X1 PRN to maintain SBP >90mmHg during Dialysis Ticagrelor 90 mg 02/18/25 22:00 02/20/25 07:53 Ticagrelor 90 Mg Tablet PO Not Given BID [facility] PFSH Medical History Hypertension NSTEMI (non-ST elevated myocardial infarction) Heart failure with reduced left ventricular function Respiratory failure Septic shock Hyperlipidemia DM type 2 (diabetes mellitus, type 2) Anemia Wears glasses Post-menopausal Alcohol use Depression History of steroid therapy Arthritis Uses wheelchair Bladder disease Low iron Stroke/cerebrovascular accident Dietary restriction History of renal disease Chronic cough Smoker Shortness of breath on exertion History of pain when walking DM type 2 (diabetes mellitus, type 2) Amputation of one or more toes Peripheral arterial disease Gas gangrene Osteomyelitis Hyperlipidemia Home Medications ?Medication ?Instructions ?Recorded ?Last Taken ?Type aspirin 81 mg chewable tablet 81 mg PO DAILY@0800 [facility] thinner 12/27/15 02/18/25 History ferrous sulfate 325 mg (65 mg 325 mg PO DAILY SUPPLEME NT 01/01/22 02/18/25 History iron) tablet bupropion HCl 150 mg 24 hr tablet, 150 mg PO DAILY simran n 12/03/24 02/18/25 History extended release ezetimibe 10 mg tablet 10 mg PO DAILY cholesterol 0 12/03/24 02/18/25 History glipizide 2.5 mg tablet, extended 2.5 mg PO DAILY diab etes 12/03/24 02/18/25 History release 24 hr metformin 1,000 mg tablet 1,000 mg PO BID diabetes 02/18/25 History pioglitazone 30 mg tablet 30 mg PO DAILY diabetes 11/0602/18/25 History amlodipine 10 mg tablet 10 mg PO DAILY htn #30 tabs 12/11/24 02/18/25 Rx carvedilol 3.125 mg tablet 3.125 mg PO BIDCM HTN #60 t abs 12/11/24 02/18/25 Rx sodium chloride 0.65 % nasal spray 1 spray intranasal BID PRN nasal 01/29/25 Unknown History aerosol (Saline Nasal) congestion atorvastatin 80 mg tablet 80 mg PO DAILY 02/18/2502/04 History sacubitril 24 mg-valsartan 26 mg 1 tab PO BID 02/18/25 02/18/25 History tablet (Entresto) ticagrelor 90 mg tablet (Brilinta) 90 mg PO BID 02/18/25 History Allergy/AdvReac Type Severity Reaction Status Date / Time latex Allergy Rash Verified 02/18/25 13:08 Surgical History H/O biopsy of kidney Hx of eye surgery Hx of left cataract extraction Social History household members: none Smoking Status: Current every day smoker tobacco type: cigarettes substance use type: does not use Review of Systems (Anesthesia) ROS Narrative System reviewed and no additional complaints, except as documented.
--- NOTE | 2025-02-20 17:59 | OP.PROVAT_ITS ---
02/20/2025 Christiano Ramirez [id number] [place] [address] Re : Upper GI endoscopy procedure for Latricia Corrigan Dear Dr. Ramirez This procedure was performed on Thursday, February 20, 2025. My impressions and recommendations are as follows: Impressions : - Normal esophagus. - Hematin (altered blood/webilb-sybvty-cjkj material) in the gastric fundus, in the cardia and in the gastric antrum. - Red blood in the gastric body. - Oozing gastric ulcers with a visible vessel. Treated with a heater probe. Clips were placed. 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 - Oozing gastric ulcers with pigmented material. Treated with a heater probe. - A single non-bleeding angiodysplastic lesion in the duodenum. Treated with a heater probe. - No specimens collected. Recommendations : - Return patient to [facility] for [facility] care. - Full liquid diet today. - Continue present medications. - Use sucralfate tablets 1 gram PO BID for 4 weeks. My findings are described in the full procedure note, which is enclosed. If I can be of further assistance, please feel free to contact me at . Sincerely, Wyatt Arita, 02/20/2025 5:59:07 PM This report has been signed electronically.
--- NOTE | 2025-02-20 17:59 | OP.EGD_ITS ---
Patient Name: Latricia Corrigan Procedure Date: 02/20/2025 1:18 PM Date of : 1960 Age: 64 Procedure: Upper GI endoscopy Indications: Iron deficiency anemia, Melena Providers: Wyatt Arita DO Medicines: Monitored Anesthesia Care Patient Profile: This is a 64 year old female. Refer to note in patient chart for documentation of history and physical. Patient has symptoms. Complications: No immediate complications. Procedure: Pre-Anesthesia Assessment: - Prior to the procedure, a History and Physical was performed, and patient medications and allergies were reviewed. The patient is competent. The risks and benefits of the procedure and the sedation options and risks were discussed with the patient. All questions were answered and informed consent was obtained. Patient identification and proposed procedure were verified by the physician in the pre-procedure area. Mental Status Examination: alert and oriented. Airway Examination: normal oropharyngeal airway and neck mobility. Respiratory Examination: clear to auscultation. CV Examination: normal. Prophylactic Antibiotics: The patient does not require prophylactic antibiotics. Prior Anticoagulants: The patient has taken no anticoagulant or antiplatelet agents except for NSAID medication. ASA Grade Assessment: II - A patient with mild systemic disease. After reviewing the risks and benefits, the patient was deemed in satisfactory condition to undergo the procedure. The anesthesia plan was to use monitored anesthesia care (MAC). Immediately prior to administration of medications, the patient was re-assessed for adequacy to receive sedatives. The heart rate, respiratory rate, oxygen saturations, blood pressure, adequacy of pulmonary ventilation, and response to care were monitored throughout the procedure. The physical status of the patient was re-assessed after the procedure. After obtaining informed consent, the endoscope was passed under direct vision. Throughout the procedure, the patient's blood pressure, pulse, and oxygen saturations were monitored continuously. The gastroscope was introduced through the mouth, and advanced to the third part of the duodenum. Small bowel enteroscopy was deemed necessary. The upper GI endoscopy was accomplished without difficulty. The patient tolerated the procedure well. Scope In: 5:39:35 PM Scope Out: 5:51:41 PM Total Procedure Duration Time 0 hours 12 minutes 6 seconds Findings: The examined esophagus was normal. Hematin (altered blood/slmjxp-uzrjgi-vktb material) was found in the cardia, in the gastric fundus and in the gastric antrum. Red blood was found in the gastric body. Two oozing linear gastric ulcers with a visible vessel were found in the gastric antrum. The largest lesion was 10 mm in largest dimension. Coagulation for hemostasis using heater probe was successful. For hemostasis, two hemostatic clips were successfully placed. Clip director speech and hearing: SLID. There was no bleeding at the end of the procedure. Three oozing linear gastric ulcers with pigmented material were found on the greater curvature of the stomach. The largest lesion was 6 mm in largest dimension. Coagulation for hemostasis using heater probe was successful. Estimated blood loss was minimal. A single medium angiodysplastic lesion without bleeding was found in the third portion of the duodenum. Coagulation for destruction of remaining portion of lesion using heater probe was successful. Estimated blood loss was minimal. Impression: - Normal esophagus. - Hematin (altered blood/ppayrk-ewgref-jsaj material) in the gastric fundus, in the cardia and in the gastric antrum. - Red blood in the gastric body. - Oozing gastric ulcers with a visible vessel. Treated with a heater probe. Clips were placed. Clip director speech and hearing: SLID. - Oozing gastric ulcers with pigmented material. Treated with a heater probe. - A single non-bleeding angiodysplastic lesion in the duodenum. Treated with a heater probe. - No specimens collected. Recommendation: - Return patient to [facility] for ongoing care. - Full liquid diet today. - Continue present medications. - Use sucralfate tablets 1 gram PO BID for 4 weeks. Procedure Code(s): --- Professional --- 42030, Small intestinal endoscopy, enteroscopy beyond second portion of duodenum, not including ileum; with ablation of tumor(s), polyp(s), or other lesion(s) not amenable to removal by hot biopsy forceps, bipolar cautery or snare technique 92416, 59,51, Small intestinal endoscopy, enteroscopy beyond second portion of duodenum, not including ileum; with control of bleeding (eg, injection, bipolar cautery, unipolar cautery, laser, heater probe, stapler, plasma network engineer) CPT copyright 2021 [employer]. All rights reserved. The codes documented in this report are preliminary and upon envelope folding machine operator review may be revised to meet current compliance requirements. Wyatt Arita DO 02/20/2025 5:59:07 PM This report has been signed electronically. Number of Addenda: 0 Note Initiated On: 02/20/2025 1:18 PM
--- NOTE | 2025-02-20 18:03 | PCM.POST.ANE ---
Anesthesia: Postop Eval I Current Vital Signs Temperature: 98 F Pulse Rate: 86 Blood Pressure: 128/58 Respiratory Rate: 16 Pulse Ox: 96 Oxygen Delivery Method: Room Air Assessment Airway patent: Yes Spontaneous unlabored respirations: Yes Mental status: Awake and Calm nausea: No Vomiting: No Anesthesia Complication: No Fluid Hydration Crystalloid volume administer (ml): 200 Total IV fluid infused: 200 Progress Note Anesthesia document: Postop Eval 1 completed: Yes
[2025-02-20 19:07] LABS: Hematocrit 24.4 % (37-47); Hemoglobin 8.2 g/dL (12.0-15.0)
[2025-02-20] MEDS: Sodium Ferric Gluconat/Sucrose 250 MG in 0.9% Normal Saline (250mL Bag) 250 ML 135 MG IV (20:04)
[2025-02-20] MEDS: TICAGRELOR 90 MG TABLET PO (21:38)
--- NOTE | 2025-02-20 21:56 | PCM.POSTANE2 ---
Anesthesia Postop Eval I Sum Postop Eval Completion status Anesthesia document: Postop Eval 1 completed: Yes Anesthesia Postop Eval I Summary Anesthesia Postop Eval I Summary: Anesthesia Postop Eval I: Assessment Summary Airway patent Yes 02/20/25 18:04 [email or web address] Spontaneous unlabored Yes 02/20/25 18:04 [email or web address] respirations Mental status Awake,Calm 02/20/25 18:04 [email or web address] nausea No 02/20/25 18:04 [email or web address] Vomiting No 02/20/25 18:04 [email or web address] Anesthesia Postop Eval I: Fluid Summary Crystalloid volume administer 200 02/20/25 18:04 [email or web address] (ml) Colloids volume administered ( ml) Blood Product volume administered (ml) Total IV fluid infused 200 02/20/25 18:04 [email or web address] Anesthesia Postop Eval I: Summary Notes Anesthesia Complication No 02/20/25 18:04 [email or web address] Anesthesia Complication Comment: Post-operative progress note Anesthesia: Postop Eval II Evaluation Mental status: Awake and Calm Pain Level: 0 nausea: No Vomiting: No Complications Anesthesia Complication: No
[2025-02-20] MEDS: Pantoprazole Sodium 40 MG in 0.9% Normal Saline (100mL MB+) 100 ML 300 MG IV (22:21)
[2025-02-20 22:28] LABS: Hematocrit 24.3 % (37-47); Hemoglobin 8.0 g/dL (12.0-15.0)
[2025-02-21] VITALS (22 sets, daily range): BP systolic 102–143; BP diastolic 39–86; PULSE 69–83; RESP 11–22; TEMP 37–37.6; O2SAT 94–100
[2025-02-21 04:59] LABS: Hematocrit 25.3 % (37-47); Hemoglobin 8.3 g/dL (12.0-15.0); Immature Granulocytes Count 0.050 X10^3/uL (0.0-0.0); Mean Corp Hgb Conc 32.8 g/dL (32-36); Mean Corpuscular Volume 88.2 fL (81-99); Mean Platelet Vol. 9.7 fl (6.2-12.0); NRBC Flagged by Analyzer 0 % (0-5); POSITIVE DIFFERENTIAL YES; Platelet Count 124 K/mm3 (150-450); RBC Distribution Width CV 15.6 % (11.6-14.6); RBC Distribution Width SD 50.7 fl (35.1-43.9); Red Blood Count 2.87 M/mm3 (4.2-5.4); White Blood Count 9.4 K/mm3 (4.4-11.0)
[2025-02-21 05:30] LABS: AST(SGOT) 27 U/L (<=31); Alanine Aminotransfer ALT/SGPT 12 U/L (<=34); Albumin, Serum 2.9 g/dL (3.4-4.8); Alkaline Phosphatase 66 U/L (35-104); Anion Gap 11 (5-15); BUN 23 mg/dL (4-19); BUN/Creat Ratio 8.1 RATIO (10-20); Calcium,Total 8.1 mg/dL (7.6-11.0); Carbon Dioxide 22.1 mmol/L (21.0-32.0); Chloride 99 mmol/L (98-108); Estimated Creatinine Clearance 18.41 ml/min (50-250); Globulin 2.5 g/dL (2.2-4.2); Glucose 185 mg/dL (70-99); Potassium 3.4 mmol/L (3.3-5.1)
--- NOTE | 2025-02-21 08:01 | PN.HOSP_ITS ---
Reason for Visit Chief Complaint: Altered mental status Objective Data Objective Data Vital Signs: Vital Signs Temp Pulse Resp BP Pulse Ox O2 Del Method 98.7 F 79 19 H 130/62 H 98 Room Air 02/21/25 06:00 02/21/25 06:00 02/21/25 06:00 02/21/25 06:00 02/21/25 06:53 02/21/25 06:53 Oxygen Delivery Method Room Air Weight: 164 lb 3.91 oz Body Mass Index (BMI) 30.0 Intake & Output: Intake and Output for Last 24 Hours 02/19/25 02/20/25 02/21/25 23:59 23:59 23:59 Intake Total 5270.60 / 5270.60 4442.33 / 4442.33 436.08 / 436.08 Output Total 150 / 150 2801 / 2801 650 / 650 Balance 5120.60 / 5120.60 1641.33 / 1641.33 -213.92 / -213.92 Lab / Micro Data 02/21/25 04:49 02/21/25 04:49 Labs: Laboratory Results - last 24 hr 02/20/25 07:36: Blood Type O POSITIVE, Antibody Screen NEGATIVE, Crossmatch See Detail 02/20/25 07:45: Urine Color Straw, Urine Clarity Cloudy, Urine pH 6.0, Ur Specific [place] 1.010, Urine Protein 100 H, Urine Glucose (UA) Normal, Urine Ketones Negative, Urine Occult Blood 250 H, Urine Nitrite Negative, Urine Bilirubin Negative, Urine Urobilinogen Normal, Ur Leukocyte Esterase 500 H, Urine RBC 0 SEEN, Urine WBC >100 SEEN, Ur Squamous Epith Cells 0-5 SEEN, Urine Bacteria 2+, Urine Mucus 0 SEEN 02/20/25 10:15: POC Glucose 109 H 02/20/25 12:45: POC Glucose 132 H 02/20/25 14:06: POC Glucose 141 H 02/20/25 16:40: POC Glucose 155 H 02/20/25 18:02: POC Glucose 163 H 02/20/25 18:50: Hgb 8.2 L, Hct 24.4 L 02/20/25 20:07: POC Glucose 154 H 02/20/25 22:10: POC Glucose 170 H 02/20/25 22:15: Hgb 8.0 L, Hct 24.3 L 02/21/25 00:12: POC Glucose 166 H 02/21/25 03:15: POC Glucose 163 H 02/21/25 04:49: WBC 9.4, RBC 2.87 L, Hgb 8.3 L, Hct 25.3 L, MCV 88.2, MCH 28.9, MCHC 32.8, RDW Std Deviation 50.7 H, RDW Coeff of Nuno 15.6 H, Plt Count 124 L, MPV 9.7, Immature Gran % (Auto) 0.500, Neut % (Auto) 86.4 H, Lymph % (Auto) 3.9 L, [place] % (Auto) 8.8, Eos % (Auto) 0.2, Baso % (Auto) 0.2, Absolute Neuts (auto) 8.2 H, Absolute Lymphs (auto) 0.37 L, Nucleated RBC % 0, Sodium 132 L, Potassium 3.4, Chloride 99, Carbon Dioxide 22.1, Anion Gap 11, BUN 23 H, Creatinine 2.84 H , Estim Creat Clear Calc 18.41 L, Est GFR (MDRD) Non-Af 18 L, BUN/Creatinine Ratio 8.1 L, Glucose 185 H, Calcium 8.1, Total Bilirubin 0.56, AST 27, ALT 12, Alkaline Phosphatase 66, Total Protein 5.4 L, Albumin 2.9 L, Globulin 2.5, Albumin/Globulin Ratio 1.2 Micro: Microbiology 02/19/25 06:50 Vomitus Gastric Occult Blood - Final Occult Blood Positive Radiography Diagnostic Testing: Radiology Impression Brain CT 02/20/25 14:27 IMPRESSION: No acute intracranial abnormalities. Reading Location: [facility] Physical Exam Narrative Seen and examined. Overnight events noted. EGD was done yesterday. Findings discussed with the patient. Intermittent confusion. Glucose improved to 160s after D10 at 55 mL/h. D5 NS discontinued. Had dialysis for last 2. Low hemoglobin but stable Physical General: Awake oriented x3, Cooperative intermittent confusion HEENT: Atraumatic, PERRLA, EOMI, Normocephalic. Oral: No Gingival or Mucosal Lesions/ Ulcerations Neck: Supple, No JVD, Negative Carotid Bruits Chest wall/Lungs: Air entry diminished in bilateral lung bases. No crepitation/rhonchi Cardiovascular: Systolic murmur over right second ICS. Sinus rhythm. Abdomen: Bowel Sounds Present, Soft, Non Tender, Non-Distended : On dialysis. No urine output in Robles catheter no renal angle tenderness. No suprapubic tenderness. Extremities: Mild pedal edema, Capillary Refill Less than 3 Seconds Skin: No rashes, No breakdown Musculoskeletal: No Tenderness to Palpation of Joints or Extremities Neurological: Cranial nerves II-XII grossly intact, DTR 2+/4. No acute focal neurological deficit. Psych/Mental Status: Answers questions slowly. Flat affect. Assessment & Plan Assessment/Plan (1) Acute renal failure: PLAN: Plan Patient is a 64-year-old female who presented to [facility] ED on 02/18/2025 with altered mental status. For last couple days she was having loose bowel movement and urine yellow color. She is confused but answers month, and her age correctly and even the day of the week. She said her urine amount was okay but here she is anuric. She said she had kidney biopsy in the past 1. Acute metabolic encephalopathy ? Admit under inpatient status to ICU. Head Of Business Development consulted. Patient alert and oriented to person in the ED but not place or time. Suspect multifactorial due to hypoglycemia on arrival to the ED, acute renal failure with uremia, and possible acute UTI. Treatment as below. Avoid sedating medications as able. 02/19: Encephalopathy is better and answering questions appropriately but seems to still delayed reaction. 02/20: Still encephalopathic. Telegraphic speech, echolalia. Unclear about her understanding. 02/21: Encephalopathy seems little better. 2. ANTONIO on CKD stage IIIb with metabolic acidosis and hyperkalemia and anuria ? Nephrology consulted. Creatinine 6.49, BUN 66, bicarb 7, potassium 7.1 in the ED. No hyperkalemia EKG changes noted. Baseline creatinine around 1.5. Suspected prerenal ANTONIO possibly secondary to overdiuresis from home heart failure regimen versus due to GI losses and poor p.o. intake in setting of euglycemic DKA. 02/19: Initially treated with bicarb drip but resulted into worsening bicarb from 7 to 4 mEq therefore changed to D5 half NS and on insulin drip. No urine output. Nephrology is consulted. Hyperkalemia with potassium 6.4. Discussed with the accountant supervisor. Right IJ temporary dialysis catheter was inserted by accountant supervisor. Plan for dialysis today. 02/20: Patient was dialyzed yesterday. BUN/creatinine 35/3.81. Hyponatremia. Bicarb 19 02/16 dialysis as per accountant supervisor recommendation BUN/creatinine 23/2.84. Mild hyponatremia sodium 132. Anion gap 11. Urine output 650 mL since midnight today. Cumulative urine output 3.5 L 3. Type 2 diabetes mellitus with concern for euglycemic DKA with hypoglycemia on presentation ? Home diabetes regimen listed as pioglitazone, metformin and glipizide. Patient was initially hypoglycemic with blood sugar of 15 on arrival to the ED. Severe anion gap metabolic acidosis Patient being managed on DKA protocol. Glucose 83. Bicarb 8.3, anion gap 33. 02/20: Patient is running hypoglycemia glucose 56, 64 therefore started on D10. Patient also on D5 NS 02/21: Hypoglycemia is corrected. Decrease D10 to 30 mL/h. D5 NS already discontinued yesterday. 4. Concern for acute UTI Patient complained of intermittent burning micturition. No urine output urine for testing. CT abdomen pelvis on admit with concern for cystitis and possible left-sided pyelonephritis. Most recent urine culture in late November grew pansensitive E. coli. Started empirically on IV ceftriaxone 02/21 UA on 02/20 shows WBC more than 100. RBC 0. Urine culture ordered 5. CAD with recent stenting, chronic HFrEF, hypertension, hyperlipidemia, history of PAD ? Follows with cardiology. Had drug-eluting stent placement x 1 to the LAD done at about 2 weeks prior to this admission. Last echo on 12/04 showed EF 45%, mild to moderate segmental systolic dysfunction, stage I diastolic dysfunction, no other concerning findings. Hypotensive to the 80s over 40s on admit. Giving IV fluids with insulin drip as above. Will hold home Entresto, Coreg and amlodipine. Okay to continue home aspirin, Brilinta, Zetia and statin. 12/20: Continue aspirin and Brilinta rest as mentioned above 12/22 on aspirin and Brilinta. Talked with the CICU storage battery inspector and tester Dr. New and exchange the clinical information and he accepted the patient. 6. Chronic iron deficiency anemia ? Hemoglobin 9.8 on admit, 02/19: Hemoglobin dropped to 7.9. Monitor. 02/20: Hemoglobin dropped to 6.8. Suspected upper GI bleed. GI was consulted yesterday. Plan for EGD today NPO. 02/21 EGD was done on 02/20/2025: Normal esophagus, oozing gastric ulcers with visible vessel, clips were placed. Oozing gastric ulcer with pigmented material treated with heater probe. Single nonbleeding angiodysplastic lesion in duodenum. Normal esophagus. Hematin in the gastric fundus cardiac and antrum and red blood in gastric body Recommendation: Monitoring H&H. Full liquid diet. Continue IV PPI Q12 hourly and sucralfate 1 g p.o. 3 times daily ordered by GI 7. Anxiety/depression ? Continue home bupropion. DVT prophylaxis: Heparin subcu 02/20 bilateral SCDs. Heparin subcu discontinued CODE STATUS: Full code, verified Total time of the visit including total time spent in counseling or coordination of care, (more than 50% of the total time, spent in obtaining medical information from nurses and other ancillary care providers ,explaining to the patient about labs, imaging, diagnosis and management of active complex medical conditions), discussion with accountant supervisor and intensive, review of labs and imaging is 40 minutes. Charges/Coding Visit Charges Inpatient E&M: 44253 Subs Hosp L3 NIHSS NIHSS Nursing Documentation NIHSS Nursing Documentation: NIHSS: Ischemic Stroke/TIA Start: 02/20/25 14:50 Freq: Status: Active Protocol: Activity Type Activity Date Activity User E-sign Co-sign Detail Recorded Client Recorded Date Recorded By Document 02/20/25 14:00 HN [id number] 02/20/25 14:51 [facility] 02/20/25 14:00 NIH Stroke Scale [NIHSS] A score of 0 is normal or asymptomatic . Total possible score is 42. Inpatient: RN or Physician to activate a stroke alert for onset of new stroke symptoms or with NIHSS increase >/= 3 points. Following change in neurological status, NIHSS will be performed per physician order or more frequently PRN. -1a. Level of Consciousness 0 - Alert; keenly responsive -1b. LOC Questions 0 - Answers BOTH questions correctly -1c. LOC Commands 0 - Performs BOTH tasks correctly -2. Best Gaze 0 - Normal -3. Visual 0 - No visual loss -4. Facial Palsy 0 - Normal symmetrical movements -5a. Left Arm 0 - No drift; arm holds 90 ( or 45) degrees for full 10 seconds -5b. Right Arm 0 - No drift; arm holds 90 ( or 45) degrees for full 10 seconds -6a. Left Leg 0 - No drift; leg holds 30- degree position for full 5 seconds -6b. Right Leg 0 - No drift; leg holds 30- degree position for full 5 seconds -7. Limb Ataxia 0 - Absent -8. Sensory 0 - Normal; no sensory loss -9. Best Language 0 - No aphasia; normal -10. Dysarthria 1 = Mild-to- moderate dysarthria; -11. Extinction and Inattention 0 - No abnormality -Total 1 Query Text:A score of 0 is normal or asymptomatic. Total possible score is 42 . ED: Notify Physician for NIHSS increase by > / = 3 points. Inpatient: RN or Physician to activate a stroke alert for NIHSS increase of > / = 3 points.
--- NOTE | 2025-02-21 08:48 | CASEMGMT ---
Tertiary List Insurance review for hospitals In-network with [facility] insurance is as follows: [facility], [facility], [place], [facility], [facility], [facility], , [place], and [place]. Peter DAILEY RN CM
[2025-02-21] MEDS: Pantoprazole Sodium 40 MG in 0.9% Normal Saline (100mL MB+) 100 ML 300 MG IV ×2 (09:34→20:16)
[2025-02-21] MEDS: TICAGRELOR 90 MG TABLET PO ×2 (09:35→20:15)
[2025-02-21] MEDS: buPROPion (XL) 150 MG TABLET.XL PO (09:35)
[2025-02-21] MEDS: 0.9% Saline Lock 10 ML Syringe IV ×2 (10:05→15:57)
--- NOTE | 2025-02-21 10:58 | PN.RENAL_ITS ---
Subjective Subjective No new complaints today. She is alert, awake. Does not offer any complaints. Urine output has improved significantly. Objective Data Objective Data Vital Signs: Vital Signs Temp Pulse Resp BP Pulse Ox O2 Del Method 98.6 F 80 17 115/48 L 99 Room Air 02/21/25 08:00 02/21/25 09:00 02/21/25 09:00 02/21/25 09:00 02/21/25 09:43 02/21/25 09:00 Oxygen Delivery Method Room Air Weight: 74.5 kg Body Mass Index (BMI) 30.0 Intake & Output: Intake and Output for Last 24 Hours 02/19/25 02/20/25 02/21/25 23:59 23:59 23:59 Intake Total 5270.60 / 5270.60 4442.33 / 4442.33 650.00 / 650.00 Output Total 150 / 150 2801 / 2801 650 / 650 Balance 5120.60 / 5120.60 1641.33 / 1641.33 0 / 0 Lab / Micro Data 02/21/25 04:49 02/21/25 04:49 Labs: Laboratory Results - last 24 hr 02/20/25 07:36: Crossmatch See Detail 02/20/25 12:45: POC Glucose 132 H 02/20/25 14:06: POC Glucose 141 H 02/20/25 16:40: POC Glucose 155 H 02/20/25 18:02: POC Glucose 163 H 02/20/25 18:50: Hgb 8.2 L, Hct 24.4 L 02/20/25 20:07: POC Glucose 154 H 02/20/25 22:10: POC Glucose 170 H 02/20/25 22:15: Hgb 8.0 L, Hct 24.3 L 02/21/25 00:12: POC Glucose 166 H 02/21/25 03:15: POC Glucose 163 H 02/21/25 04:49: WBC 9.4, RBC 2.87 L, Hgb 8.3 L, Hct 25.3 L, MCV 88.2, MCH 28.9, MCHC 32.8, RDW Std Deviation 50.7 H, RDW Coeff of Nuno 15.6 H, Plt Count 124 L, MPV 9.7, Immature Gran % (Auto) 0.500, Neut % (Auto) 86.4 H, Lymph % (Auto) 3.9 L, [place] % (Auto) 8.8, Eos % (Auto) 0.2, Baso % (Auto) 0.2, Absolute Neuts (auto) 8.2 H, Absolute Lymphs (auto) 0.37 L, Nucleated RBC % 0, Sodium 132 L, Potassium 3.4, Chloride 99, Carbon Dioxide 22.1, Anion Gap 11, BUN 23 H, Creatinine 2.84 H , Estim Creat Clear Calc 18.41 L, Est GFR (MDRD) Non-Af 18 L, BUN/Creatinine Ratio 8.1 L, Glucose 185 H, Calcium 8.1, Total Bilirubin 0.56, AST 27, ALT 12, Alkaline Phosphatase 66, Total Protein 5.4 L, Albumin 2.9 L, Globulin 2.5, Albumin/Globulin Ratio 1.2 02/21/25 07:57: POC Glucose 205 H Micro: Microbiology 02/19/25 06:50 Vomitus Gastric Occult Blood - Final Occult Blood Positive Radiography Diagnostic Testing: Radiology Impression Brain CT 02/20/25 14:27 IMPRESSION: No acute intracranial abnormalities. Reading Location: [facility] Physical Exam Narrative no obvious distress no pallor no icterus no JVD s1s2 no murmurs lungs clear abdomen soft no organomegaly no edema no cyanosis varner + Assessment & Plan Assessment/Plan (1) Acute renal failure: PLAN: Baseline creatinine is around 1.5. As of 01/29/2025, her creatinine was close to baseline. She had coronary angiogram around that time. Came in with acute renal failure, creatinine of more than 5, anuria. CT abdomen without any hydronephrosis. Severe acidosis, elevated ketoacidosis, lactic acid level pending. Suspected euglycemic DKA. Metformin induced lactic acidosis being ruled out. As per previous records, she was on SGLT2 inhibitor, this was not on preadmission medication list at this time, not sure if she was actually taking it. Either way in view of severe acidosis, hyperkalemia she will need renal replacement therapy at least on a temporary basis. Patient could not consent, spoke to daughter at bedside. Explained the urgency of situation. She is agreeable for dialysis today. Acidosis, elevated anion gap, either euglycemic DKA from previous use of SGLT2 inhibitor, metformin induced lactic acidosis need to be ruled out. Has been on bicarbonate drip, will plan for dialysis today Hyperkalemia. Predominantly related to acidosis and renal failure. Should improve with dialysis on 2K bath Renal cell carcinoma. Poorly differentiated, squamous type it appears. Yet to start any treatments. She saw urology here and subsequently went to [facility] as per daughter. They would like to get all care locally. Planning to see urology and oncology here locally. Once medically stable, will need urology and oncology consults 02/20/2025. Yesterday lactate level came back at 10. With dialysis, significant improvement, bicarbonate is 19 today. Potassium 3.9. Urine output actually has picked up this morning. Will plan for 1 more session of dialysis today, seen on dialysis. See orders/flowsheets. Given improvement in urine output, we will just monitor renal function after today. Discussed with staff bedside 02/21/2025. Overall doing well. Acidosis is resolved. Potassium is normal. Good urine output, she was made more than 2 L yesterday and already 800 cc today. Likely recovering ATN. Hold off dialysis further. If she recovers completely, we will get the dialysis catheter removed. Discussed with hospitalist about overall plan. It seems she has recent stents requiring Brilinta, endoscopy showing bleeding ulcers. 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 In view of above complications, she is being transferred to [facility] for further management. (2) Hyperkalemia:
[2025-02-21 11:55] LABS: Hematocrit 26.1 % (37-47); Hemoglobin 8.6 g/dL (12.0-15.0)
--- NOTE | 2025-02-21 13:13 | PN.CC_ITS ---
Objective Data Objective Data Vital Signs: Vital Signs Last response 3 Temperature 37.0 C 02/21/25 08:00 Temperature Source Core 02/21/25 08:00 Pulse Rate 80 02/21/25 12:00 Pulse Strength Weak (1+) 02/20/25 20:36 Respiratory Rate 17 02/21/25 09:00 Respiratory Effort Normal, Non-Labored 02/21/25 04:00 Respiratory Depth Normal 02/21/25 04:00 Respiratory Pattern Normal 02/21/25 04:00 Blood Pressure 115/48 L 02/21/25 09:00 Blood Pressure Mean 68 02/21/25 09:00 Blood Pressure Source Monitor 02/21/25 09:00 Blood Pressure Position Semi-Fowlers 02/21/25 09:00 Blood Pressure Location Left Arm 02/21/25 09:00 Baseline BP 124/56 02/20/25 18:15 Pulse Ox 99 02/21/25 09:43 Oxygen Delivery Method Room Air 02/21/25 09:00 I&O: I&O Last 24 Hours 3 02/20/25 02/21/25 02/21/25 23:59 11:59 23:59 Intake Total 1507 / 4442.33 650.00 / 1130.00 480 / 1130.00 Output Total 2551 / 2801 650 / 1175 525 / 1175 Balance -1044 / 1641.33 0 / -45.00 -45 / -45.00 I&O: Total Stay 3 02/18/25 12:57 thru 02/21/25 12:00 Intake Total 57743.93 Output Total 4126 Balance 29094.93 Current Meds Ordered / Administered: Current meds ordered / Administered 3 Generic Name Dose Route Start Last Admin Trade Name Freq PRN Reason Stop Dose Admin Acetaminophen 650 mg 02/18/25 16:18 Acetaminophen 325 Mg Tablet PO Q6H PRN PRN Pain 1-10 Or Fever>100.7 Aspirin 81 mg 02/19/25 08:00 02/21/25 07:47 Aspirin 81 Mg Tab.Chew PO 81 mg DAILY@0800 [facility] Administration Atorvastatin Calcium 80 mg 02/19/25 10:00 02/21/25 09:35 Atorvastatin Calcium 80 Mg Tablet PO 80 mg DAILY I[facility]AN Administration Bupropion HCl 150 mg 02/19/25 10:00 02/21/25 09:35 Bupropion (Xl) 150 Mg Tablet.Xl PO 150 mg DAILY IHSAN Administration Ezetimibe 10 mg 02/19/25 10:00 02/21/25 09:35 Ezetimibe 10 Mg Tablet PO 10 mg DAILY IHSAN Administration Ferrous Sulfate 325 mg 02/19/25 12:00 02/21/25 09:35 Ferrous Sulfate 325 Mg Tablet PO 325 mg DAILY@1200 I[facility]AN Administration Glucagon 1 mg 02/18/25 16:18 Glucagon 1 Mg/Ml Syringe IM X1 PRN Hypoglycemia Protocol Glucagon 1 mg 02/18/25 23:02 Glucagon 1 Mg/Ml Syringe IM X1 PRN Hypoglycemia Protocol Dextrose 250 mls @ 0 mls/hr 02/18/25 16:18 02/20/25 03:00 Dextrose 10%-Water IV Infused .Q0M PRN Infusion HYPOGLYCEMIA Protocol As Directed Dextrose 250 mls @ 0 mls/hr 02/18/25 23:02 02/20/25 06:53 Dextrose 10%-Water IV Infused .Q0M PRN Infusion HYPOGLYCEMIA Protocol As Directed Ceftriaxone Sodium 1 gm in 50 mls @ 100 mls/hr 02/19/25 12:05 02/21/25 10:54 Rocephin IV Infused Q24 I[facility]AN Infusion Sodium Chloride 500 mls @ 15 mls/hr 02/20/25 09:34 IV PRN PRN Blood Transfusion Lactated Ringer's 1,000 mls @ 15 mls/hr 02/20/25 15:15 02/20/25 18:20 IV Infused .Q48H I[facility]AN Infusion Pantoprazole Sodium 40 mg/ 100 mls @ 300 mls/hr 02/20/25 22:00 02/21/25 10:02 Sodium Chloride IV Infused Q12 I[facility]AN Infusion Insulin Human Lispro 0 unit 02/18/25 16:18 02/21/25 11:18 Insulin Lispro 100 Unit/Ml Insuln.Pen SC 3 unit ACHS I[facility]AN Administration Protocol Melatonin 3 mg 02/18/25 16:18 Melatonin 3 Mg Tablet PO QHS PRN PRN INSOMNIA Ondansetron HCl 4 mg 02/18/25 16:18 02/19/25 05:31 Ondansetron 4 Mg/2 Ml Vial IV 4 mg Q8H PRN PRN Administration NAUSEA/VOMITING Sodium Chloride 1 spray 02/18/25 16:18 Sodium Chloride 0.65% 1 Holbrook Holbrook.Btl NASAL BID PRN NASAL CONGESTION Sodium Chloride 10 - 40 ml 02/18/25 16:45 02/21/25 10:05 0.9% Saline Lock 10 Ml Syringe IV 20 ml UD PRN Administration SALINE FLUSH Sucralfate 1 gm 02/21/25 07:00 02/21/25 11:15 Sucralfate 1 Gm Tablet PO 1 gm 0700,1100,1600 I[facility]AN Administration Ticagrelor 90 mg 02/18/25 22:00 02/21/25 09:35 Ticagrelor 90 Mg Tablet PO 90 mg BID IHSAN Administration Lab / Micro Data 02/21/25 11:41 02/21/25 04:49 Labs: Laboratory Results - last 24 hr 02/20/25 14:06: POC Glucose 141 H 02/20/25 16:40: POC Glucose 155 H 02/20/25 18:02: POC Glucose 163 H 02/20/25 18:50: Hgb 8.2 L, Hct 24.4 L 02/20/25 20:07: POC Glucose 154 H 02/20/25 22:10: POC Glucose 170 H 02/20/25 22:15: Hgb 8.0 L, Hct 24.3 L 02/21/25 00:12: POC Glucose 166 H 02/21/25 03:15: POC Glucose 163 H 02/21/25 04:49: WBC 9.4, RBC 2.87 L, Hgb 8.3 L, Hct 25.3 L, MCV 88.2, MCH 28.9, MCHC 32.8, RDW Std Deviation 50.7 H, RDW Coeff of Nuno 15.6 H, Plt Count 124 L, MPV 9.7, Immature Gran % (Auto) 0.500, Neut % (Auto) 86.4 H, Lymph % (Auto) 3.9 L, [place] % (Auto) 8.8, Eos % (Auto) 0.2, Baso % (Auto) 0.2, Absolute Neuts (auto) 8.2 H, Absolute Lymphs (auto) 0.37 L, Nucleated RBC % 0, Sodium 132 L, Potassium 3.4, Chloride 99, Carbon Dioxide 22.1, Anion Gap 11, BUN 23 H, Creatinine 2.84 H , Estim Creat Clear Calc 18.41 L, Est GFR (MDRD) Non-Af 18 L, BUN/Creatinine Ratio 8.1 L, Glucose 185 H, Calcium 8.1, Total Bilirubin 0.56, AST 27, ALT 12, Alkaline Phosphatase 66, Total Protein 5.4 L, Albumin 2.9 L, Globulin 2.5, Albumin/Globulin Ratio 1.2 02/21/25 07:57: POC Glucose 205 H 02/21/25 10:50: POC Glucose 233 H 02/21/25 11:41: Hgb 8.6 L, Hct 26.1 L Imaging Radiology Impression Brain CT 02/20/25 14:27 IMPRESSION: No acute intracranial abnormalities. Reading Location: [facility] Assessment and Plan . Assessment and plan: Assessment and plan: 1. ANTONIO: on baseline CKD(cr 1.48 last month). Did get contrast with recent LHC last week. Was on metformin as well. Received 2 sessions of [employer]. UOP increased. Renal following. 2. Metabolic Acidosis: 2/2 ANTONIO. 2/2 elevated lactate(on metformin). HCO3 back to normal. 3. Hypoglycemia: ? 2/2 sulfonylurease in setting of ANTONIO. Now off D10. Oral diet. 4. Acute blood anemia/GI bleed : Slow decrease during admit. EGD showed multiple ulcers. On PPI. H/H stable. 5. FEN: oral diet 6. CAD: s/p PCI last week. Continue DAPT. Awaiting transfer in case of more significant bleeding given need for DAPT 7. AMS: metabolic encephalopathy. Back to baseline 8. PX: SCDs Will follow peripherally. Mikey Nielsen MD The entirety of this encounter was done via Telemedicine e Physical Exam Narrative Critical Care Time: The entirety of this encounter was done via Telemedicine Physical Exam Narrative GEN: NAD, awake and following HEENT MMM o/p:clear, Pupils:= NECK supple, No JVD CV:RRR CHEST: CTA B, Symmetric expansion ABD: soft, NT, +bs EXT: No c/e/c SKIN : No rashes REDDY NF Subjective Subjective EGD showed multiple ulcers. More awake today. Off D10
--- NOTE | 2025-02-21 17:26 | PN_ITS ---
Progress Note 64-year-old female with HFrEF, T2DM, CKD IIIb, and metastatic renal carcinoma admitted on 02/18/2025 for altered mental status and hypoglycemia, complicated by ANTONIO requiring emergent hemodialysis. Patient had an episode of coffee-ground emesis. The patient is currently tolerating a full liquid diet.? Physical Exam Const alert, oriented x3, no apparent distress and healthy appearing General Appearance: cooperative GI normal to inspection, nondistended, normoactive bowel sounds, soft to palpation, non-tender and non-distended Percussion: normal to percussion Rectal Exam: deferred Assessment & Plan Assessment/Plan (1) GI bleed: PLAN: * Labs: * Hemoglobin (Hgb) today: 8.6 g/dL (up from 8.3 g/dL). * (Please insert current comprehensive metabolic panel (CMP), specifically Bicarb, K+, and renal function (Cr/BUN), and any other relevant labs like blood glucose) * Imaging/Procedures: * EGD performed on 02/20/2025 revealed: * Oozing gastric ulcers with visible vessels (treated with clips). * Oozing gastric ulcer with pigmented material (treated with heater probe). * Single non-bleeding angiodysplastic lesion in the duodenum. * Hematin and red blood in the gastric fundus, cardiac, antrum, and body.? * Patient with multiple comorbidities and recent upper GI bleed (UGIB) due to g astric ulcers and angiodysplasia. Hemoglobin has stabilized and slightly improved (8.3 -> 8.6), suggesting no ongoing active major bleeding at this time. The patient is stable from a GI perspective post-EGD intervention. Other active issues include HFrEF, T2DM, CKD IIIb, metastatic renal carcinoma, and recent ANTONIO requiring hemodialysis (HD).? Plan * Gastrointestinal: * Continue monitoring Hemoglobin and Hematocrit (H&H) for signs of re- bleeding. * Maintain on full liquid diet as per EGD recommendations. * Continue IV Pantoprazole 40 mg every 12 hours (Q12 hr). * Continue Sucralfate 1 g orally three times daily (TID). * Monitor for further episodes of emesis (coffee-ground or bright red blood) or melena/hematochezia. Portions of this note were generated using voice recognition software ([email or web address]ictation). I have reviewed the contents and every effort has been made to ensure accuracy; however, inadvertent errors in grammar, spelling, punctuation, or word choice may occur, that were not noted before signing the document and should not alter the intended clinical meaning. Visit Charges Inpatient E&M: 82816 Subs Hosp L3
--- NOTE | 2025-02-21 17:26 | PCM.PN.BLA ---
Progress Note 64-year-old female with HFrEF, T2DM, CKD IIIb, and metastatic renal carcinoma admitted on 02/18/2025 for altered mental status and hypoglycemia, complicated by ANTONIO requiring emergent hemodialysis. Patient had an episode of coffee-ground emesis. The patient is currently tolerating a full liquid diet.? Physical Exam Const alert, oriented x3, no apparent distress and healthy appearing General Appearance: cooperative GI normal to inspection, nondistended, normoactive bowel sounds, soft to palpation, non-tender and non-distended Percussion: normal to percussion Rectal Exam: deferred Assessment & Plan Assessment/Plan (1) GI bleed: PLAN: Labs: Hemoglobin (Hgb) today: 8.6 g/dL (up from 8.3 g/dL). (Please insert current comprehensive metabolic panel (CMP), specifically Bicarb, K+, and renal function (Cr/BUN), and any other relevant labs like blood glucose) Imaging/Procedures: EGD performed on 02/20/2025 revealed: Oozing gastric ulcers with visible vessels (treated with clips). Oozing gastric ulcer with pigmented material (treated with heater probe). Single non-bleeding angiodysplastic lesion in the duodenum. Hematin and red blood in the gastric fundus, cardiac, antrum, and body.? Patient with multiple comorbidities and recent upper GI bleed (UGIB) due to gastric ulcers and angiodysplasia. Hemoglobin has stabilized and slightly improved (8.3 -> 8.6), suggesting no ongoing active major bleeding at this time. The patient is stable from a GI perspective post-EGD intervention. Other active issues include HFrEF, T2DM, CKD IIIb, metastatic renal carcinoma, and recent ANTONIO requiring hemodialysis (HD).? Plan Gastrointestinal: Continue monitoring Hemoglobin and Hematocrit (H&H) for signs of re-bleeding. Maintain on full liquid diet as per EGD recommendations. Continue IV Pantoprazole 40 mg every 12 hours (Q12 hr). Continue Sucralfate 1 g orally three times daily (TID). Monitor for further episodes of emesis (coffee-ground or bright red blood) or melena/hematochezia. Portions of this note were generated using voice recognition software ([employer]). I have reviewed the contents and every effort has been made to ensure accuracy; however, inadvertent errors in grammar, spelling, punctuation, or word choice may occur, that were not noted before signing the document and should not alter the intended clinical meaning. Visit Charges Inpatient E&M: 21070 Subs Hosp L3
--- NOTE | 2025-02-22 07:11 | DS.PCM_ITS ---
Providers Date of Admission: 02/18/25 Date of Discharge: 02/21/25 Primary Care Physician: Dr. Christiano Ramirez MD Consultations 02/18/25 16:18 Consult: Freight Caller / Pulmonary Medicine Routine Consulting Provider: Intensivists/Pulmonary Med Reason for Consult: acute renal failure w/ HoTN EMERGENT Consult: No Notified: Yes Date Notified: 02/18/25 Time Notified: 16:43 Method of Notification: Text Consult: Nephrology Routine Consulting Provider: Silvano Boyd Reason for Consult: acute renal failure EMERGENT Consult: No Notified: Yes Date Notified: 02/18/25 Time Notified: 16:36 Method of Notification: Answering Service 02/19/25 12:22 Consult: Gastroenterology Routine Consulting Provider: [facility] Reason for Consult: Upper GI Bleed , recent cardiac stent on DAPT EMERGENT Consult: No Notified: Yes Date Notified: 02/19/25 Time Notified: 12:22 Method of Notification: ED Physician Initiated Reason For Visit: ACUTE RENAL FAILURE, HYPOGLYCEMIA Diagnosis Discharge Diagnosis (1) GI bleed: Status: Acute Code(s): K92.2 - Gastrointestinal hemorrhage, unspecified Plan Patient is a 64-year-old female who presented to [facility] ED on 02/18/2025 with altered mental status. For last couple days she was having loose bowel movement and urine yellow color. She is confused but answers month, and her age correctly and even the day of the week. She said her urine amount was okay but here she is anuric. She said she had kidney biopsy in the past 1. Acute metabolic encephalopathy ? Admit under inpatient status to ICU. Freight Caller consulted. Patient alert and oriented to person in the ED but not place or time. Suspect multifactorial due to hypoglycemia on arrival to the ED, acute renal failure with uremia, and possible acute UTI. Treatment as below. Avoid sedating medications as able. 02/19: Encephalopathy is better and answering questions appropriately but seems to still delayed reaction. 02/20: Still encephalopathic. Telegraphic speech, echolalia. Unclear about her understanding. 02/21: Encephalopathy seems little better. 2. ANTONIO on CKD stage IIIb with metabolic acidosis and hyperkalemia and anuria ? Nephrology consulted. Creatinine 6.49, BUN 66, bicarb 7, potassium 7.1 in the ED. No hyperkalemia EKG changes noted. Baseline creatinine around 1.5. Suspected prerenal ANTONIO possibly secondary to overdiuresis from home heart failure regimen versus due to GI losses and poor p.o. intake in setting of euglycemic DKA. 02/19: Initially treated with bicarb drip but resulted into worsening bicarb from 7 to 4 mEq therefore changed to D5 half NS and on insulin drip. No urine output. Nephrology is consulted. Hyperkalemia with potassium 6.4. Discussed with the academic physician. Right IJ temporary dialysis catheter was inserted by academic physician. Plan for dialysis today. 02/20: Patient was dialyzed yesterday. BUN/creatinine 35/3.81. Hyponatremia. Bicarb 19 02/16 dialysis as per academic physician recommendation BUN/creatinine 23/2.84. Mild hyponatremia sodium 132. Anion gap 11. Urine output 650 mL since midnight today. Cumulative urine output 3.5 L 3. Type 2 diabetes mellitus with concern for euglycemic DKA with hypoglycemia on presentation ? Home diabetes regimen listed as pioglitazone, metformin and glipizide. Patient was initially hypoglycemic with blood sugar of 15 on arrival to the ED. Severe anion gap metabolic acidosis Patient being managed on DKA protocol. Glucose 83. Bicarb 8.3, anion gap 33. 02/20: Patient is running hypoglycemia glucose 56, 64 therefore started on D10. Patient also on D5 NS 02/21: Hypoglycemia is corrected. Decrease D10 to 30 mL/h. D5 NS already discontinued yesterday. 4. Concern for acute UTI Patient complained of intermittent burning micturition. No urine output urine for testing. CT abdomen pelvis on admit with concern for cystitis and possible left-sided pyelonephritis. Most recent urine culture in late November grew pansensitive E. coli. Started empirically on IV ceftriaxone 02/21 UA on 02/20 shows WBC more than 100. RBC 0. Urine culture ordered 5. CAD with recent stenting, chronic HFrEF, hypertension, hyperlipidemia, history of PAD ? Follows with cardiology. Had drug-eluting stent placement x 1 to the LAD done at about 2 weeks prior to this admission. Last echo on 12/04 showed EF 45%, mild to moderate segmental systolic dysfunction, stage I diastolic dysfunction, no other concerning findings. Hypotensive to the 80s over 40s on admit. Giving IV fluids with insulin drip as above. Will hold home Entresto, Coreg and amlodipine. Okay to continue home aspirin, Brilinta, Zetia and statin. 12/20: Continue aspirin and Brilinta rest as mentioned above 12/22 on aspirin and Brilinta. Talked with the CICU electroless plater Dr. New and exchange the clinical information and he accepted the patient. Patient left to last night, transferred to [facility], 6. Chronic iron deficiency anemia ? Hemoglobin 9.8 on admit, 02/19: Hemoglobin dropped to 7.9. Monitor. 02/20: Hemoglobin dropped to 6.8. Suspected upper GI bleed. GI was consulted yesterday. Plan for EGD today NPO. 02/21 EGD was done on 02/20/2025: Normal esophagus, oozing gastric ulcers with visible vessel, clips were placed. Oozing gastric ulcer with pigmented material treated with heater probe. Single nonbleeding angiodysplastic lesion in duodenum. Normal esophagus. Hematin in the gastric fundus cardiac and antrum and red blood in gastric body Recommendation: Monitoring H&H. Full liquid diet. Continue IV PPI Q12 hourly and sucralfate 1 g p.o. 3 times daily ordered by GI Patient is H&H remained between 8 to 9 g%. Last 8.6/26%. Earlier 7. Anxiety/depression ? Continue home bupropion. DVT prophylaxis: Heparin subcu 02/20 bilateral SCDs. Heparin subcu discontinued CODE STATUS: Full code, verified Total time of the visit including total time spent in counseling or coordination of care, (more than 50% of the total time, spent in obtaining medical information from nurses and other ancillary care providers ,explaining to the patient about labs, imaging, diagnosis and management of active complex medical conditions), discussion with academic physician and intensive, review of labs and imaging is 40 minutes. Medications at Discharge Home Medications aspirin 81 mg chewable tablet 81 mg PO DAILY@0800 Blood thinner 12/27/15 ferrous sulfate 325 mg (65 mg iron) tablet 325 mg PO DAILY SUPPLEMENT 01/01/22 bupropion HCl 150 mg 24 hr tablet, extended release 150 mg PO DAILY pain 12/03/24 ezetimibe 10 mg tablet 10 mg PO DAILY cholesterol 12/03/24 glipizide 2.5 mg tablet, extended release 24 hr 2.5 mg PO DAILY diabetes 12/03/24 metformin 1,000 mg tablet 1,000 mg PO BID diabetes 12/03/24 pioglitazone 30 mg tablet 30 mg PO DAILY diabetes 12/03/24 amlodipine 10 mg tablet 10 mg PO DAILY htn #30 tabs 12/11/24 carvedilol 3.125 mg tablet 3.125 mg PO BIDCM HTN #60 tabs 12/11/24 sodium chloride 0.65 % nasal spray aerosol (Saline Nasal) 1 spray intranasal BID PRN nasal congestion 01/29/25 atorvastatin 80 mg tablet 80 mg PO DAILY 02/18/25 sacubitril 24 mg-valsartan 26 mg tablet (Entresto) 1 tab PO BID 02/18/25 ticagrelor 90 mg tablet (Brilinta) 90 mg PO BID 02/18/25 Physical Exam Narrative Please see exam finding for same-day Weight / BMI Weight Weight: 164 lb 3.91 oz Body Mass Index (BMI) 30.0 ABG / Lab / Microbiology Data 02/21/25 11:41 02/21/25 04:49 Laboratory: Laboratory Results - last 24 hr 02/21/25 07:57: POC Glucose 205 H 02/21/25 10:50: POC Glucose 233 H 02/21/25 11:41: Hgb 8.6 L, Hct 26.1 L 02/21/25 15:55: POC Glucose 207 H 02/21/25 20:13: POC Glucose 149 H Microbiology: Microbiology 02/19/25 06:50 Vomitus Gastric Occult Blood - Final Occult Blood Positive D/C Instructions DC O2, CPAP, BIPAP Needs Home O2 Discharge instructions: No Meaningful Use Info Meaningful Use Meaningful Use Diagnoses (Choose all that apply): None applicable Discharge Plan Admission Admit Date/Time: 02/18/25 15:19 Attending Provider: Kimani Mckinney Primary Care Provider: Christiano Ramirez Consulting Providers: Rasheed Kaufman; Carlos Garcia; Lonny Liu; Alexey Rivera; David Kim; Susie Cuevas; Reji Alatorre; Elvia Bobo; Gil Love; Shelby Velazquez; Mikey Nielsen; Zack De Leon; Amanda Barrera; Miguel Webster; Richard Azevedo; Bird Odom; Kiana Dyer; Merle Bush; Spencer López; Ginna Logan; Jennifer Umanzor; Hosea Zamudio; Anjali Peterson; Natasha Cullen; Prabhu Loomis; Yovani Chen; Anjali Purvis; Chuy Leon; Filiberto Locke; Marco Samaniego; Grace Barnett; Wesly Cary; Javier Smith; Madi Grace; Jennifer Pandya; Estelle Goldsmith; Romeo Tirado; Anthony Nam; Gabriel Perry; Timo Mcpherson; Felipe Carpenter; Alexandro Hanley; Silvano Boyd; Chaka Ferreira; Kimani Mckinney; Wyatt Arita; Kristin Yanez; Sarah Ho; Cecilia Harper Discharge Orders/Prescriptions Prescriptions: No Action aspirin 81 MG tablet,chewable 81 mg PO DAILY@0800 ferrous sulfate 325 MG tablet 325 mg PO DAILY glipizide 2.5 mg tablet extended release 24hr 2.5 mg PO DAILY metformin 1,000 mg tablet 1,000 mg PO BID pioglitazone 30 mg tablet 30 mg PO DAILY ezetimibe 10 mg tablet 10 mg PO DAILY bupropion HCl 150 mg tablet extended release 24 hr 150 mg PO DAILY carvedilol 3.125 mg Tablet 3.125 mg PO BIDCM Qty: 60 1RF amlodipine 10 mg tablet 10 mg PO DAILY Qty: 30 1RF Saline Nasal 0.65 % aerosol,spray 1 spray INTRANASAL BID PRN (Reason: nasal congestion) atorvastatin 80 mg tablet 80 mg PO DAILY ticagrelor [Brilinta] 90 mg tablet 90 mg PO BID sacubitril-valsartan [Entresto] 24-26 mg tablet 1 tab PO BID Referrals / Follow Up: Christiano Ramirez MD [Primary Care Provider, Internal Medicine] Disposition Disposition (needs filled in before D/C Order can be placed): Acute Care Hospital Charges/Coding Visit Charges Inpatient E&M: 44588 Disch Hosp >30min
== END 2025-02-21 21:00 | disposition short-term general hospital (02) | DRG 682 ==
LOC: ED 15:01 → ICU 15:45
PROVIDERS: Internal Medicine; Internal Medicine Gastroenterology; Admitting Provider Hospitalist; Emergency Provider Emergency Medicine; PCP Internal Medicine; Visit Provider Internal Medicine
PROC: 0DJ08ZZ Inspection of Upper Intestinal Tract, Via Natural or Artificial Opening Endoscopic (ICD-10-PCS; CPT 43235; principal; 2025-02-20 13:55)
DX: N17.0 Acute kidney failure with tubular necrosis (principal); G93.41 Metabolic encephalopathy; K25.4 Chronic or unspecified gastric ulcer with hemorrhage; E11.10 Type 2 diabetes mellitus with ketoacidosis without coma; C78.6 Secondary malignant neoplasm of retroperitoneum and peritoneum; I24.89 Other forms of acute ischemic heart disease; D62 Acute posthemorrhagic anemia; C64.2 Malignant neoplasm of left kidney, except renal pelvis; I13.0 Hypertensive heart and chronic kidney disease with heart failure and stage 1 through stage 4 chronic kidney disease, or unspecified chronic kidney disease; I50.22 Chronic systolic (congestive) heart failure; E87.1 Hypo-osmolality and hyponatremia; N30.00 Acute cystitis without hematuria; N18.32 Chronic kidney disease, stage 3b; F32.A Depression, unspecified; E11.51 Type 2 diabetes mellitus with diabetic peripheral angiopathy without gangrene; D50.9 Iron deficiency anemia, unspecified; E78.5 Hyperlipidemia, unspecified; I25.2 Old myocardial infarction; F17.210 Nicotine dependence, cigarettes, uncomplicated; I44.0 Atrioventricular block, first degree; E87.5 Hyperkalemia; E86.0 Dehydration; E11.22 Type 2 diabetes mellitus with diabetic chronic kidney disease; I25.10 Atherosclerotic heart disease of native coronary artery without angina pectoris; F41.9 Anxiety disorder, unspecified; I95.9 Hypotension, unspecified; K31.819 Angiodysplasia of stomach and duodenum without bleeding; N12 Tubulo-interstitial nephritis, not specified as acute or chronic; T38.3X5A Adverse effect of insulin and oral hypoglycemic [antidiabetic] drugs, initial encounter; Z95.5 Presence of coronary angioplasty implant and graft; Z86.73 Personal history of transient ischemic attack (TIA), and cerebral infarction without residual deficits; Z79.84 Long term (current) use of oral hypoglycemic drugs; Z79.82 Long term (current) use of aspirin; Z79.899 Other long term (current) drug therapy; Z87.440 Personal history of urinary (tract) infections
CPT/HCPCS: 36600; 51702; 70450; 71045; 74176; 80048; 80051; 80053; 80069; 81001; 82010; 82271; 82803; 82962; 83605; 83735; 84100; 84484; 85014; 85018; 85025; 85027; 86850; 86900; 86901; 87077; 87086; 87088; 87186; 90937; 93005; 94640; 94668; 94762; 97163; 97167; 97530; 97535; 99285; 99406; C1889; P9016; A4216; C1752; G0257; J0612; J2405; J2916

== ENCOUNTER → 2025-02-26 | Outpatient (CLI) | payer MEDICARE, SELFPAY ==
[2025-02-26 12:37] LABS: Hematocrit 26.9 % (37-47); Hemoglobin 8.8 g/dL (12.0-15.0); Mean Corp Hgb Conc 32.7 g/dL (32-36); Mean Corpuscular Volume 89.1 fL (81-99); Mean Platelet Vol. 9.8 fl (6.2-12.0); Platelet Count 217 K/mm3 (150-450); RBC Distribution Width CV 14.8 % (11.6-14.6); RBC Distribution Width SD 47.5 fl (35.1-43.9); Red Blood Count 3.02 M/mm3 (4.2-5.4); White Blood Count 7.4 K/mm3 (4.4-11.0)
[2025-02-26 13:28] LABS: AST(SGOT) 17 U/L (<=31); Alanine Aminotransfer ALT/SGPT 22 U/L (<=34); Albumin, Serum 3.7 g/dL (3.4-4.8); Alkaline Phosphatase 75 U/L (35-104); Anion Gap 11 (7-18); BUN 20 mg/dL (4-19); BUN/Creat Ratio 11.4 RATIO (10-20); Calcium,Total 9.1 mg/dL (7.6-11.0); Carbon Dioxide 23.6 mmol/L (20.0-29.0); Chloride 101 mmol/L (96-106); Globulin 3.0 g/dL (2.2-4.2); Glucose 194 mg/dL (70-99); Potassium 3.9 mmol/L (3.5-5.1)
== END | disposition home or self-care (01) ==
LOC: LAB 11:04
PROVIDERS: PCP Internal Medicine; Referring Provider Internal Medicine Cardiovascular Disease; Visit Provider Internal Medicine Cardiovascular Disease
DX: I10 Essential (primary) hypertension (principal)
CPT/HCPCS: 36415; 80053; 85027